=== PATIENT | female | born 1945 | race Caucasian/White ===

== ENCOUNTER → 2016-04-25 | Outpatient (CLI) | payer MEDICARE, MEDICAID ==
[~2016-04-25] VITALS: Ht 172.7 cm; Wt 74.5 kg
[2016-04-25] VITALS (10 sets, daily range): BP systolic 152–159; BP diastolic 53–68
[~2016-04-25] MED LIST: AC325T; AC500T PO; ACET-93 PO; ACET325T49 PO; ACETAMINOPHEN 500 MG TAB (TYLENOL) PO ONE; ACHD5005 PO; ALBU8.5H2 IH; ALBU8.5H2 INH; ALPR0.25 PO; ALPR0.254 PO; ASP325TEC PO; ASP81TEC PO; ASPI-586 PO; ASPI-983 PO; ASPI325T32 PO; ASPI325T4 PO; ATOR10TA PO; ATOR10TA66 PO; ATOR40TA70 PO; Aspirin PO; BACL10TA PO; BACL20TA PO; BCL10T PO; BUDE6HFA IH; BUSP5TAB59 PO; CEFU800T34 PO; CETI-214 PO; CETI10TA17 PO; CHOL2000 PO; CLD600T PO; CLOP75TA PO; CLOP75TA28 PO; CLOP75TA69 PO; CLPD75T PO; CTLP20T PO; DIPH25CA79 PO; DIPH25TA31 PO; DIPH25TA82 PO; DIVA250T2 PO; DIVA250T4 PO; DOCU100C37 PO; E400C; ENXP40I.4 SQ; FAMO20TA5 PO; FERR-65 PO; FEXO1TAB49; FLUT16SP22 NSEACH; FURO20TA4 PO; FUROSEMIDE 40 MG/4 ML INJ (LASIX) IV ONE; GBPN600T PO; GLUC1TAB60; HYDR-3812 PO; HYDR-3816 PO; HYDR28CR45 TP; IBP600T1 PO; IPRA3AMP IH; IPRA3AMP INH; IPRA3AMP11 INH; IPRA4AER IH; LATA2.5D5 OU; LORA10TA7 PO; LOSA50TA36 PO; LOVA40TA2 PO; LTN005OP2; MAGN400C PO; MAGN400O7 PO; MENT71OI TP; MULT-878 PO; MULT1TAB63 PO; NEBI5TAB8 PO; NEBIVOLOL HCL PO; NF-ESOM40C PO; NFNEB10T PO; NIA500ERT PO; NS IV 500 ML 500 ML IV SCH; OMEG1CAP51 PO; OMEP20CA12; OMEP20CA12 PO; OMEP40CA36 PO; ONDA4TAB10 PO; OXYC-197 PO; PANT40TA PO; PANT40TA3 PO; PEDI1TAB35 PO; PHEN10TA56 PO; PNT40TEC PO; POLY17PO23 PO; POLY255P PO; POTA10TA10 PO; POTA10TA36 PO; PREG50CA2 PO; RNT150T PO; SENN-20 PO; SENN8.6T10 PO; SERT100T8 PO; Sodium Chloride IV; THM100T; TMXF10T; TRAM50TA2 PO; UBID100C8 PO; UBID30CA13 PO; [UNRECOGNIZED DRUG - CODE] IV; diphenhydrAMINE 25 MG TAB (BENADRYL) PO ONE; mag oxide
--- OUTSIDE RECORDS SUMMARY | 2016-04-25 08:09 | XMS REPORT | Continuity of Care Document ---
Author Author [facility] Organization [facility] Address Unknown Phone Unavailable Care Team Providers Care Product Assembler Name Role Phone KELSIE PEARSON DO PCP Insurance Providers Payer Name Policy Number Subscriber Name Relationship [employer] [id number] Sarika Springer 18 Self / Same As Patient [facility] [id number] Sarika Springer 16 Self / Same As Patient Advance Directives Directive Response Recorded Date/Time Advance Directives Yes 09/09/15 4:48pm Health Care Power of Rn Perinatal No 09/09/15 4:48pm Organ Donor No 09/09/15 4:48pm Resuscitation Status Full Code 09/09/15 4:48pm Problems Active Problems Medical Problem Onset Date Status Generalized weakness Unknown Acute Mild anemia Unknown Acute UTI (urinary tract infection) Unknown Acute Medications Current Home Medications Medication Dose Units Route Directions Days/Qty Instructions Start Date Multivitamins 1 Ea 1 Tab Oral Daily 10/01/06 Calcium/Vitamin D 1 Tab 1 Tab Oral As Directed TAKES CALCIUM +D3 600- 400MG EVERY FRIDAY AND Friday10/01/06 Cholecalciferol 2,000 Unit 8,000 Unit Oral As Directed TAKES 4 ( 2000UNIT) CAPSULES EVERY AND 03/02/12 Sertraline Hcl 100 Mg 100 Mg Oral Twice A Day 05/11/14 Latanoprost 2.5 Ml 1 Drop Each Eye Bedtime 05/11/14 Ipratropium/Albuterol Sulfate 4 Gm 1 Puff Inhalation Twice A Day Lovastatin 40 Mg 1.5 Tab Oral Daily 07/14/14 Nebivolol Hcl 10 Mg 10 Mg Oral Bedtime 07/14/14 Baclofen (Lioresal) 10 Mg 10 Mg Oral Three Times A Day 08/24/14 Furosemide 20 Mg 20 Mg Oral Daily 0 09/09/15 Ferrous Sulfate 325 Mg 325 Mg Oral Daily 0 09/09/15 Cetirizine Hcl 10 Mg 10 Mg Oral Daily 0 09/09/15 Potassium Chloride 10 Meq 10 Meq Oral Daily 0 09/09/15 Divalproex Sodium 250 Mg 250 Mg Oral Bedtime 0 09/09/15 Alprazolam 0.25 Mg 0.25 Mg Oral Twice A Day as needed for Anxiety 0 Esomeprazole Magnesium 40 Mg 40 Mg Oral Twice A Day 09/11/15 Ipratropium/Albuterol Sulfate (Duoneb) 3 Ml 3 Ml Inhalation Respiratory Every Four Hours as needed for Shortness Of Breath 60 09/12/15 Aspirin 325 Mg 650 Mg Oral Twice A Day 60 09/12/15 Hydrocodone/Acetaminophen 1 Each 1 Tab Oral Every 4HRS as needed for Pain 60 09/12/15 Tramadol Hcl 50 Mg 50-100 Mg Oral Every 6 Hours as needed for Pain 60 09/12/15 Past Home Medications Medication Directions Ordered Status Thiamine Hcl 100 Mg Tab, 10/01/06 Discontinued Vitamin E 400 Unit Capsule, 10/01/06 Discontinued Latanoprost 2.5 Ml Drops, 10/01/06 Discontinued Tamoxifen Citrate 10 Mg Tablet, 10/01/06 Discontinued Fexofenadine Hcl/Pseudoephedrine 1 Tab Tab, 10/01/06 Discontinued Citalopram Hydrobromide 20 Mg Tablet, 40 Mg Oral Daily 10/01/06 Discontinued Omeprazole 20 Mg Capsule., 10/01/06 Discontinued Acetaminophen 325 Mg Tablet, 10/01/06 Discontinued Hlwxgsgo-Nbohgja-Lwgj 149-Hyal 1 Each Tablet, 07/19/09 Discontinued [place]-3 Fatty Acids/Fish Oil 1 Each Capsule, 2000 Mg Oral Daily 07/19/09 Discontinued Acetaminophen 500 Mg Tablet, 500 Mg Oral Every 8HRS as needed for Pain Discontinued Ibuprofen 600 Mg Tablet, 600 Mg Oral Three Times A Day 05/02/10 Discontinued Budesonide/Formoterol Fumarate 10.2 Gm Hfa.aer.ad, 1 Puff Inhalation Twice A Day 05/02/10 Discontinued Diphenhydramine Hcl (Benadryl) 25 Mg Tablet, 1 - 2 Each Oral Hs Prn 05/02/10 Discontinued Aspirin 81 Mg Tabec, 81 Mg Oral Daily 05/03/10 Discontinued Clopidogrel Bisulfate 75 Mg Tablet, 75 Mg Oral Daily 05/03/10 Discontinued Niacin 500 Mg Tablet.sa, 500 Mg Oral Daily 05/03/10 Discontinued Niacin 500 Mg Tablet.sa, 1000 Mg Oral Daily 05/03/10 Discontinued Ranitidine Hcl 150 Mg Tablet, 150 Mg Oral Twice A Day 05/03/10 Discontinued Nebivolol Hcl 5 Mg Tablet, 5 Mg Oral Bedtime 03/02/12 Discontinued Gabapentin 600 Mg Tab, 600 Mg Oral Twice A Day 03/02/12 Discontinued Lovastatin (Mevacor) 40 Mg Tablet, 1 Each Oral Daily With Supper 03/02/12 Discontinued Ubidecarenone 30 Mg Capsule, 30 Mg Oral Daily 03/02/12 Discontinued [Mag Oxide] , 03/02/12 Discontinued Loratadine 10 Mg Tablet, 10 Mg Oral Bedtime 05/11/14 Discontinued Magnesium Oxide 400 Mg Capsule, 400 Mg Oral Bedtime 05/11/14 Discontinued Atorvastatin Calcium 40 Mg Tablet, 40 Mg Oral Bedtime 05/11/14 Discontinued Lovastatin (Mevacor) 40 Mg Tablet, 1 Each Oral Daily With Supper 05/11/14 Discontinued [Aspirin] 81 Mg Tabec, 81 Mg Oral Daily 05/12/14 Discontinued Clopidogrel Bisulfate 75 Mg Tab, 75 Mg Oral Daily 05/12/14 Discontinued Tramadol Hcl 50 Mg Tablet, 100 Mg Oral Three Times A Day 05/27/14 Discontinued Albuterol 8.5 Gm Hfa.aer.ad, 1 Puff Inhalation Respiratory Every Four Hours as needed for Shortness Of Breath 05/27/14 Discontinued Albuterol/Ipratropium 3 Ml Nebu, 3 Ml Inhalation Respiratory Every Four Hours 06/02/14 Discontinued Aspirin 325 Mg Tab, 325 Mg Oral Daily@0900 06/02/14 Discontinued Baclofen 10 Mg Tab, 10 Mg Oral Three Times A Day 06/02/14 Discontinued Enalaprilat 2.5 Mg/2 Ml Inj, 2.5 Mg Intraven Every 20 Minutes as needed for Hypertension 06/02/14 Discontinued Enoxaparin Sodium 40 Mg/0.4 Ml Soln, 40 Mg Sub-Q Daily@1400 06/02/14 Discontinued Acetaminophen/Hydrocodone Bitart (Hydrocodone/Apap 5/325MG) 1 Tab Tab, 1 Tab Oral Every 4HRS as needed for Pain Not Relieved W/Tylenol 06/02/14 Discontinued Pantoprazole Sod 40 Mg Tab, 40 Mg Oral Daily@0700 06/02/14 Discontinued [Sodium Chloride] 10 Ml Soln, 10-40 Ml Intraven As Needed as needed for Line Flush 06/02/14 Discontinued [Nebivolol Hcl] 5 Mg Tablet, 10 Mg Oral Bedtime 06/16/14 Discontinued Aspirin 325 Mg Tabec, 325 Mg Oral Daily 07/14/14 Discontinued Baclofen (Lioresal) 20 Mg Tablet, 10 Mg Oral Three Times A Day 07/14/14 Discontinued Albuterol Sulfate 8.5 Gm Aer.w.adap, 1 Puff Inhalation Every 4HRS as needed for Shortness Of Breath 07/14/14 Discontinued Pantoprazole Sod 40 Mg Tab, 40 Mg Oral Twice A Day 07/16/14 Discontinued Hydrocodone Bit/Acetaminophen 1 Tab Tablet, 1 Tab Oral Four Times Daily as needed for Pain 08/24/14 Discontinued Pantoprazole Sodium 40 Mg Tablet.dr, 40 Mg Oral Twice A Day 08/25/14 Discontinued Albuterol Sulfate 8.5 Gm Aer.w.adap, 1 Puff Inhalation Every 4HRS as needed for Shortness Of Breath 08/25/14 Discontinued Ubidecarenone 100 Mg Capsule, 100 Mg Oral Daily 08/25/14 Discontinued Omeprazole 40 Mg Capsule.dr, 40 Mg Oral Twice A Day 08/25/14 Discontinued Cefuroxime Axetil 500 Mg Tablet, 500 Mg Oral Twice A Day 08/25/14 Discontinued Aspirin 81 Mg Tablet.dr, 81 Mg Oral Daily 09/09/15 Discontinued Diphenhydramine Hcl 25 Mg Capsule, 25 Mg Oral Bedtime as needed for Sleep Discontinued Hydrocodone/Acetaminophen 1 Each Tablet, 1 Each Oral Every 6 Hours as needed for Pain 09/09/15 Discontinued Social History Social History Problem Response Recorded Date/Time Alcohol Use Denies Use 09/09/2015 3:49pm Recreational Drug Use No 09/09/2015 3:49pm Recent Foreign Travel No 09/09/2015 3:49pm Recent Infectious Disease Exposure No 09/09/2015 3:49pm Hospitalization with Isolation Denies 09/12/2015 1:46pm Sexually Transmitted Disease No 09/09/2015 3:49pm HIV/AIDS No 09/09/2015 3:49pm Smoking Status Current Everyday Smoker 09/09/2015 8:27pm Do you dip or chew tobacco? No 08/24/2014 6:17pm Query Response Start Date Stop Date Smoking Status Current Everyday Smoker Hospital Discharge Instructions No hospital discharge instructions. Plan of Care Discharge Date 09/12/15 1:00pm Disposition 62 DISC/XFER TO IRF Instructions/Education Provided Open Reduction and Internal Fixation of a Hip Fracture (ED) Prescriptions See Medication Section Additional Instructions/Education transfer to rehab, continue same orders Functional Status Query Response Date Recorded Patient Orientation Person Place Time Situation September 12, 2015 11:44am Patient Orientation Person Place Time Situation September 12, 2015 1:46pm Comprehension Ability Understands Concepts September 12, 2015 8:00am Allergies, Adverse Reactions, Alerts Allergen Type Severity Reaction Status Last Updated Penicillins ([id number]) Allergy Unknown PT HAS RECEIVED ANCEF WITHOUT ISSUE Active 05/30/14 Meperidine Allergy Unknown Active 05/30/14 Immunizations Name Given Type Date of Pneumonia Vaccine 12/15/13 Historical Date of Influenza Vaccine 12/15/13 Historical Tetanus Booster (TDap) Unknown Historical Vital Signs Acute Vital Signs Vital Response Date/Time Temperature (Fahrenheit) 97.8 degrees F (97.6 - 99.5) 09/12/2015 1:42pm Temperature (Calculated Celsius) 36.14015 degrees C (36.4 - 37.5) 09/12/2015 10:00am Temperature Source Tympanic 09/12/2015 1:42pm Pulse Rate (adult) 70 bpm (60 - 90) 09/12/2015 1:42pm Respiratory Rate 20 bpm (12 - 24) 09/12/2015 1:42pm O2 Sat by Pulse Oximetry 95 % (88 - 100) 09/12/2015 1:42pm Blood Pressure 115/60 mm Hg 09/12/2015 1:42pm Blood Pressure Mean 78 mm Hg 09/12/2015 10:00am Pain Numeric Pain Scale 0-No Pain 09/12/2015 1:42pm Pain Intensity 3 09/12/2015 10:22am Height (Feet) 5 feet 09/09/2015 8:23pm Height (Inches) 8.00 inches 09/09/2015 8:23pm Height (Calculated Centimeters) 172.684895 cm 09/09/2015 8:23pm Weight (Pounds) 159 pounds 09/11/2015 6:00am Weight (Ounces) 8.0 oz 09/11/2015 6:00am Weight (Calculated Grams) 23804.984 gm 09/11/2015 6:00am Weight (Calculated Kilograms) 72.879635 kilograms 09/11/2015 6:00am Calculated BMI 22.2 09/09/2015 8:23pm Results Laboratory Results Test Name Result Units Flags Reference Collection Date/Time Result Date/ Time Comments White Blood Count 6.2 10^3/uL 4.3-11.0 09/12/2015 6:10am 09/12/2015 6: 24am Red Blood Count 3.01 10^6/uL L 4.35-5.85 09/12/2015 6:10am 09/12/2015 6: 24am Hemoglobin 9.4 G/DL L 11.5-16.0 09/12/2015 6:10am 09/12/2015 6:24am Hematocrit 29 % L 35-52 09/12/2015 6:10am 09/12/2015 6:24am Mean Corpuscular Volume 95 FL 80-99 09/12/2015 6:10a09/12/2015 6: 24am Mean Corpuscular Hemoglobin 31 PG 25-34 09/12/2015 6:10am 09/12/2015 6: 24am Mean Corpuscular Hemoglobin Concent 33 G/DL 32-36 09/12/2015 6:10am 6:24am Red Cell Distribution Width 13.2 % 10.0-14.5 09/12/2015 6:10a2015 6:24am Platelet Count 141 10^3/uL 130-400 09/12/2015 6:10am 09/12/2015 6:24am Mean Platelet Volume 9.8 FL 7.4-10.4 09/12/2015 6:09/12/2015 6: 24am Neutrophils (%) (Auto) 67 % 42-75 09/12/2015 6:09/12/2015 6:24am Lymphocytes (%) (Auto) 18 % 12-44 09/12/2015 6:09/12/2015 6:24am Monocytes (%) (Auto) 11 % 0-12 09/12/2015 6:09/12/2015 6:24am Eosinophils (%) (Auto) 5 % 0-10 09/12/2015 6:09/12/2015 6:24am Basophils (%) (Auto) 0 % 0-10 09/12/2015 6:09/12/2015 6:24am Neutrophils # (Auto) 4.2 X 10^3 1.8-7.8 09/12/2015 6:09/12/2015 6: 24am Lymphocytes # (Auto) 1.1 X 10^3 1.0-4.0 09/12/2015 6:09/12/2015 6: 24am Monocytes # (Auto) 0.7 X 10^3 0.0-1.0 09/12/2015 6:09/12/2015 6: 24am Eosinophils # (Auto) 0.3 10^3/uL 0.0-0.3 09/12/2015 6:09/12/2015 6 :24am Basophils # (Auto) 0.0 10^3/uL 0.0-0.1 09/12/2015 6:09/12/2015 6: 24am Prothrombin Time 13.8 SEC 12.2-14.7 09/09/2015 7:50pm 09/09/2015 8: 19pm INR Comment 1.1 0.8-1.4 09/09/2015 7:50pm 09/09/2015 8:19pm INTERPRETIVE DATA SUGGESTED THERAPEUTIC RANGE FOR INR'S: VENOUS THROMBOSIS, PULMONARY EMBOLISM, OR PREVENTION OF SYSTEMIC EMBOLISM (EG. IN ATRIAL FIBRILLATION): 2.0 - 3.0 MECHANICAL PROSTHETIC HEART VALVES: 2.5 - 3.5* *NOTE: INR'S UP TO 4.5 MAY BE NECESSARY IN SELECTED GROUPS OF HIGH RISK PATIENTS. [place] [employer] OF [place] PH[employer]ANS CONSENSUS CONFERENCE ON ANTITHROMBOTIC THERAPY (2000). Activated Partial Thromboplast Time 32 SEC 24-35 09/09/2015 7:50pm 8:19pm Urine Color DIONNA * 09/12/2015 10:2009/12/2015 10:35am Urine Clarity SLIGHTLY CLOUDY 09/12/2015 10:09/12/2015 10: 35am Urine pH 6.5 5-9 09/12/2015 10:20am 09/12/2015 10:35am Urine Specific [place] 1.010 * 1.016-1.022 09/12/2015 10:20am 2015 10:35am Urine Protein 2+ * NEGATIVE 09/12/2015 10:2009/12/2015 10:35am Urine Glucose (UA) NEGATIVE NEGATIVE 09/12/2015 10:2009/12/2015 10 :35am Urine RBC (Auto) 1+ * NEGATIVE 09/12/2015 10:20am 09/12/2015 10:35am Urine Ketones NEGATIVE NEGATIVE 09/12/2015 10:09/12/2015 10: 35am Urine Nitrite NEGATIVE NEGATIVE 09/12/2015 10:09/12/2015 10: 35am Urine Bilirubin NEGATIVE NEGATIVE 09/12/2015 10:09/12/2015 10: 35am Urine Urobilinogen 1 MG/DL NORMAL 09/12/2015 10:2009/12/2015 10: 35am Urine Leukocyte Esterase 1+ * NEGATIVE 09/12/2015 10:2009/12/2015 10 :35am Urine RBC NONE /HPF 09/12/2015 10:2009/12/2015 10:35am Urine WBC 0-2 /HPF 09/12/2015 10:2009/12/2015 10:35am Urine Bacteria TRACE /HPF 09/12/2015 10:20am 09/12/2015 10:35am Urine Squamous Epithelial Cells 25-50 /HPF * 09/12/2015 10:202015 10:35am Urine Crystals NONE /LPF 09/12/2015 10:20am 09/12/2015 10:35am Urine Casts NONE /LPF 09/12/2015 10:20am 09/12/2015 10:35am Urine Mucus NEGATIVE /LPF 09/12/2015 10:20am 09/12/2015 10:35am Urine Culture Indicated NO 09/12/2015 10:20am 09/12/2015 10:35am Sodium Level 140 MMOL/L 135-145 09/12/2015 6:10a09/12/2015 6:51am Potassium Level 3.6 MMOL/L 3.6-5.0 09/12/2015 6:10a09/12/2015 6:51am Chloride Level 105 MMOL/L 98-107 09/12/2015 6:10a09/12/2015 6:51am Carbon Dioxide Level 28 MMOL/L 21-32 09/12/2015 6:10a09/12/2015 6: 51am Anion Gap 7 MMOL/L 5-14 09/12/2015 6:10a09/12/2015 6:51am Blood Urea Nitrogen 11 MG/DL 7-18 09/12/2015 6:10a09/12/2015 6:51am Creatinine 0.74 MG/DL 0.60-1.30 09/12/2015 6:10a09/12/2015 6:51am BUN/Creatinine Ratio 15 09/12/2015 6:10a09/12/2015 6:51am Estimat Glomerular Filtration Rate > 60 09/12/2015 6:10a2015 6:51am GFR INTERPRETIVE DATA UNITS FOR ESTIMATED GFR (eGFR): mL/min/1.73 M2 REFERENCE RANGE FOR ESTIMATED GFR (eGFR) eGFR NORMAL eGFR >60 MODERATELY DECREASED eGFR 30-59 SEVERLY DECREASED eGFR 15-29 KIDNEY FAILURE <15 (OR DIALYSIS) Glucose Level 119 MG/DL H 70-105 09/12/2015 6:10a09/12/2015 6:51am Calcium Level 8.9 MG/DL 8.5-10.1 09/12/2015 6:10a09/12/2015 6:51am Total Bilirubin 0.3 MG/DL 0.1-1.0 09/09/2015 7:50pm 09/09/2015 9:49pm Alkaline Phosphatase 75 U/L 40-136 09/09/2015 7:50pm 09/09/2015 9:49pm Aspartate Amino Transf (AST/SGOT) 22 U/L 5-34 09/09/2015 7:50pm 2015 9:49pm Alanine Aminotransferase (ALT/SGPT) 13 U/L 0-55 09/09/2015 7:50pm 09/08 9:49pm Total Protein 6.2 G/DL L 6.4-8.2 09/09/2015 7:50pm 09/09/2015 9:49pm Albumin 3.7 G/DL 3.2-4.5 09/09/2015 7:50pm 09/09/2015 9:49pm Microbiology Results Procedure Source Result Collection Date/Time Result Date/Time MRSA Screen Nasal MRSA not isolated 09/09/2015 6:20pm 09/11/2015 7:49am Procedures Procedure Status Date Provider(s) * Intramedullary rodding using locking nail system of right femur Completed 09/10/15 LEXX ALTAMIRANO MD Tracing only of electrocardiogram Completed 09/09/15 SARAH ALVAREZ DO Encounters Encounter Location Arrival/Admit Date Discharge/Depart Date Attending Provider Discharged Inpatient [facility] 09/09/15 3:10pm 1:00pm KELSIE PEARSON DO
== END ==
LOC: SDC 08:04
PROVIDERS: ATTEND Family Medicine
DX: D64.9 Anemia, unspecified (principal)
CPT/HCPCS: 36430; 86850; 86900; 86901; 86920; 96374; 96375

== ENCOUNTER 2016-05-23 22:07 | Inpatient (IN) | payer MEDICARE, MEDICAID ==
[~2016-05-23] VITALS: Ht 165.1 cm; Wt 73.7 kg
[~2016-05-23 22:07] MED LIST changes: -ACET325T49 PO; -ACETAMINOPHEN 500 MG TAB (TYLENOL) PO ONE; -ATOR10TA66 PO; -BUSP5TAB59 PO; -CLOP75TA28 PO; -DOCU100C37 PO; -FAMO20TA5 PO; -FUROSEMIDE 40 MG/4 ML INJ (LASIX) IV ONE; -IPRA3AMP IH; -MAGN400O7 PO; -NS IV 500 ML 500 ML IV SCH; -ONDA4TAB10 PO; -OXYC-197 PO; -PANT40TA3 PO; -PEDI1TAB35 PO; -SENN8.6T10 PO; -diphenhydrAMINE 25 MG TAB (BENADRYL) PO ONE
--- OUTSIDE RECORDS SUMMARY | 2016-05-23 22:12 | XMS REPORT | Continuity of Care Document ---
Author Author [facility] Organization [facility] Address Unknown Phone Unavailable Care Team Providers Care Air Sealing Technician Name Role Phone KELSIE PEARSON DO PCP Insurance Providers Payer Name Policy Number Subscriber Name Relationship [employer] [id number] Sarika Springer 16 Self / Same As Patient [facility] [id number] Sarika Springer 16 Self / Same As Patient Advance Directives Directive Response Recorded Date/Time Advance Directives Yes 09/09/15 4:48pm Health Care Power of Violin Mechanic No 09/09/15 4:48pm Organ Donor No 09/09/15 [...] Discontinued Acetaminophen 325 Mg Tablet, 10/01/06 Discontinued Ipfvmgje-Mzptqgg-Aeeb 149-Hyal 1 Each Tablet, 07/19/09 Discontinued [place]-3 Fatty Acids/Fish Oil 1 Each Capsule, 2000 [...] Type Severity Reaction Status Last Updated Penicillins ([id number]) Allergy Unknown PT HAS RECEIVED ANCEF WITHOUT ISSUE Active 05/30/14 Meperidine Allergy Unknown Active 05/30/14 Immunizations Name Given Type Date of Pneumonia Vaccine 12/15/13 Historical Date of Influenza Vaccine 12/15/13 Historical Tetanus Booster (TDap) Unknown Historical Vital Signs Acute Vital Signs Vital Response Date/Time Temperature (Fahrenheit) 97.8 degrees F (97.6 - 99.5) 09/12/2015 1:42pm Temperature (Calculated Celsius) 36.57344 degrees C (36.4 - 37.5) 09/12/2015 10:00am [...] 8.00 inches 09/09/2015 8:23pm Height (Calculated Centimeters) 172.774352 cm 09/09/2015 8:23pm Weight (Pounds) 159 pounds 09/11/2015 6:00am Weight (Ounces) 8.0 oz 09/11/2015 6:00am Weight (Calculated Grams) 46792.984 gm 09/11/2015 6:00am Weight (Calculated Kilograms) 72.539532 kilograms 09/11/2015 6:00am Calculated BMI 22.2 09/09/2015 [...] SELECTED GROUPS OF HIGH RISK PATIENTS. [place] [employer] [employer] [place] CONSENSUS CONFERENCE ON ANTITHROMBOTIC THERAPY (2000). Activated Partial Thromboplast Time 32 SEC 24-35 09/09/2015 7:50pm 8:19pm Urine Color DIONNA * 09/12/2015 10:2009/12/2015 10:35am Urine Clarity SLIGHTLY CLOUDY 09/12/2015 10:09/12/2015 10: 35am Urine pH 6.5 5-9 09/12/2015 10:20am 09/12/2015 10:35am Urine Specific [place] 1.010 * 1.016-1.022 09/12/2015 10:20am 2015 10:35am [...] Discharge/Depart Date Attending Provider Discharged Inpatient [facility] 09/09/15 3:10pm 1:00pm KELSIE PEARSON DO
[2016-05-23] MEDS ORDERED: fentaNYL INJECTION 100 MCG/2 ML AMP IVP STA ×2 (22:15→23:05)
--- NOTE | 2016-05-23 22:58 | ED Lower Extremity ---
General Chief Complaint: Trauma-Non Activation Stated Complaint: FALL/L HIP PAIN Nursing Triage Note: PT REPORTS SHE FELL WHILE WALKING AROUND HER HOUSE. PT REPORTS SHE LOST HER BALANCE AND LANDED ON THE FLOOR. PT REPORTS SHE DID HIT HER HEAD BUT DID NOT HAVE LOC. PT DENIES NECK OR BACK PAIN BUT REPORTS L HIP PAIN. Nursing Sepsis Screen: No Definite Risk Source: patient History of Present Illness Time seen by provider: 22:07 Initial Comments PT ARRIVES VIA EMS FROM HOME PT STATES SHE WAS WALKING AND TRYING TO ANSWER THE PHONE AND FELL, LANDING ON HER LEFT HIP PT STATES SHE DID HIT HER HEAD, AND IT WAS HURTING BUT IS NOT HURTING NOW. OCCURRED AT 2030 TONIGHT NO LOSS OF CONSCIOUSNESS NO NECK OR BACK PAIN NO VISION CHANGES NO NAUSEA/VOMITING C/O LEFT HIP PAIN HAS SLIGHT TINGLING TO LEFT FOOT, OTHERWISE NO PARESTHESIAS OR MOTOR DEFICITS NO OTHER INJURIES PT HAS HAD FRACTURE OF RIGHT HIP /ORIF AND THIS FEELS THE SAME. PT CURRENTLY LIVING AT HOME WITH 24 HOUR CAREGIVERS. HAS BEEN IN [facility] IN THE PAST. Location Injury Occurred: HOME [facility] PCP: DR. PEARSON Allergies and Home Medications Allergies Coded Allergies: Penicillins (Verified Allergy, Unknown, PT HAS RECEIVED ANCEF WITHOUT ISSUE, 05/30/14) meperidine (Verified Allergy, Unknown, 05/30/14) Home Medications Acetaminophen 500 Mg Tablet 1,000 MG PO DAILY (Reported) Albuterol/Ipratropium 4 Gm Aero 1 PUFF IH BID PRN PRN SHORTNESS OF BREATH ( Reported) Alprazolam 0.25 Mg Tablet 0.125 MG PO TID PRN PRN ANXIETY (Reported) TAKES 1/2 OF A (0.25 MG) TABLET Aspirin 81 Mg Tablet.dr 81 MG PO DAILY (Reported) Atorvastatin Calcium 10 Mg Tablet #30 10 MG PO HS Prescribed by: SARAH ALVAREZ on 02/03/16 0937 Cetirizine HCl 10 Mg Tablet 10 MG PO DAILY (Reported) Clopidogrel Bisulfate 75 Mg Tablet #30 75 MG PO DAILY Prescribed by: SARAH ALVAREZ on 02/03/16 0931 Diphenhydramine HCl 25 Mg Tablet 50 MG PO HS PRN PRN SLEEP (Reported) TAKES 2 (25 MG) TABLETS / ALSO TAKES NEEDED FOR ALLERGIES Divalproex Sodium 250 Mg Tablet.dr 250 MG PO HS (Reported) Fluticasone Propionate 16 Gm [place].susp 2 SPRAYS NSEACH BID (Reported) Furosemide 20 Mg Tablet 20 MG PO DAILY (Reported) Hydrocodone/Acetaminophen 1 Each Tablet 1 TAB PO TID PRN PRN SEVERE PAIN ( Reported) Hydrocortisone 28 Gm Cream..g. TP DAILY PRN PRN PRN RASH (Reported) Latanoprost 2.5 Ml Drops 1 DROP OU HS (Reported) Losartan Potassium 50 Mg Tablet 50 MG PO DAILY (Reported) Menthol/Lanolin/Calamine/Znox 71 Gm Oint TP DAILY PRN PRN PRN RASH (Reported) Multivitamins-Min/FA/Ginkgo 1 Each Tablet 1 TAB PO DAILY (Reported) Nebivolol HCl 10 Mg Tab 10 MG PO DAILY (Reported) Omeprazole 20 Mg Capsule.dr 40 MG PO DAILY (Reported) TAKES 2 (20 MG) CAPSULES / HAS NOT P/U FROM [facility] YET Phenylephrine HCl 10 Mg Tablet 10 MG PO BID PRN PRN CONGESTION (Reported) Polyethylene Glycol 3350 255 Gm Powder 17 GM PO DAILY (Reported) Potassium Chloride 10 Meq Tablet.er 10 MEQ PO DAILY (Reported) Sertraline HCl 100 Mg Tablet 200 MG PO DAILY (Reported) TAKES 2 (100 MG) TABLETS Constitutional: no symptoms reported EENTM: no symptoms reported Respiratory: no symptoms reported Cardiovascular: no symptoms reported (PT HAS COPD--NO SHORTNESS OF BREATH AT THIS TIME) Gastrointestinal: no symptoms reported Genitourinary: no symptoms reported Musculoskeletal: see HPI Skin: no symptoms reported Psychiatric/Neurological: See HPI Past Ytpzyxd-Nvogxz-Hzqpvi Hx Patient Social History Alcohol Use: Denies Use Recreational Drug Use: No Smoking Status: Current Everyday Smoker (1 03/18 PPD) Type Used: Cigarettes Recent Foreign Travel: No Contact w/Someone Who Travel: No Recent Infectious Disease Expo: No Recent Hopitalizations: No Immunizations Up To Date Tetanus Booster (TDap): Unknown Date of Pneumonia Vaccine: Dec 15, 2013 Date of Influenza Vaccine: Dec 16, 2015 Seasonal Allergies Seasonal Allergies: No Surgeries HX Surgeries: Yes (CAROTID, BREAST BIOPSIES,HERNIA REPAIR x2, HEMMORHOID SURGERIES; RIGHT HIP FX / ORIF) Surgeries: Abdominal, Breast, Gallbladder, Hysterectomy, Orthopedic, Rectal, Vascular Surgery Respiratory Hx Respiratory Disorders: Yes Respiratory Disorders: COPD Cardiovascular Hx Cardiac Disorders: Yes (CAROTID DISEASE) Cardiac Disorders: High Cholesterol, Hypertension, Peripheral Vascular Neurological Hx Neurological Disorders: Yes (LEFT SIDE WEAKNESS--LAST TIA 01/2016) Neurological Disorders: Seizure Disorder, Stroke, TIA 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 System Hx 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 Disorders: No Sexually Transmitted Disease: No HIV/AIDS: No Female 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 Disorders: 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, 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 Genitourinary Hx Genitourinary Disorders: Yes (INCONTINENCE) Gastrointestinal Hx Gastrointestinal Disorders: Yes Gastrointestinal Disorders: Gastroesophageal Reflux, Chronic Constipation, Hemorrhoids, Hiatal Hernia Musculoskeletal Hx Musculoskeletal Disorders: Yes (CHRONIC GENERALIZED PAIN , FX RIGHT HIP 09/08) Musculoskeletal Disorders: Arthritis, Fibromyalgia, Chronic Back Pain Endocrine Hx Endocrine Disorders: No HEENT HX ENT Disorders: Yes HEENT Disorders: Glaucoma Cancer Hx Cancer: Yes Cancer: Breast Psychosocial Hx Psychiatric Problems: Yes ("SEVERE ANXIETY" PER PT) Behavioral Health Disorders: Anxiety Integumentary HX Skin/Integumentary Disorder: No Blood Transfusions Hx Blood Disorders: No Adverse Reaction to a Blood Tr: No Family Medical History Family Medial History: Alcoholism 19 MOTHER, Onset:20's - 25 Aphasia 19 MOTHER, Onset:40's - 50 Asthma 19 FATHER, Onset:Unknown Congenital disease Son, Onset:Pre- Diabetes mellitus G8 SISTER, Onset:60 years & older FH: ovarian cancer G8 SISTER, Onset:Unknown FHx: stomach cancer 19 MOTHER, Onset:60 years & older Glaucoma Grandaughter, Onset:Unknown Hypertension 19 MOTHER, Onset:Unknown Infertility G8 SISTER, Onset:Pre- Tuberculosis G8 SISTER, Onset:30's - 40 No Family History of: AIDS Abdominal aortic aneurysm Tracy's disease Alzheimer's disease Cancer of mouth Cardiovascular disease Cataracts Colon cancer Completed stroke Congenital heart disease Coronary thrombosis Cystic fibrosis Deafness or hearing loss Dementia Drug abuse Dysphasia Fibrocystic disease of breast Gastroenteritis Gout Headache disorder Hypercholesterolemia Kidney disease Myocardial infarction Neoplasm Not obtainable due to adoption Osteoporosis Parkinson's disease Prostate cancer Psychosocial problem Respiratory disorder Seizure disorder Severe allergy Thyroid disease Visual disorder Physical Exam Vital Signs Vital Sign - Last 12Hours 05/23/16 22:22 Temp 97.9 Pulse 73 Resp 18 B/P 182/71 Pulse Ox 96 O2 Delivery Room Air Capillary Refill : Less Than 3 Seconds General Appearance: WD/WN no apparent distress other (REEKS OF CIGARETTES) HEENT: PERRL/EOMI other (EDENTULOUS, DRY ORAL MUCOSA. NO EXTERNAL EVIDENCE OF TRAUMA TO HEAD AND NO TENDERNESS TO HEAD) Neck: non-tender full range of motion supple normal inspection Cardiovascular: regular rate, rhythm systolic murmur (3/6 MURMUR) Respiratory: no respiratory distress no accessory muscle use wheezing ( DIFFUSE BILATERAL EXPIRATORY WHEEZING. ) expiration Gastrointestinal: non tender soft Back: no CVA tenderness no vertebral tenderness Hips: right hip non-tender, right hip normal inspection, left hip bone tenderness, left hip soft tissue tenderness, left hip other (LEFT HIP TENDERNESS. LEFT LEG SHORTENING AND EXTERNAL ROTATION. DISTAL MOTOR/SENSORY / VASCULAR INTACT. PULSES +2/4 BILATERALLY. 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 no motor/sensory deficits alert normal mood/affect oriented x 3 Skin: normal color warm/dry Progress/Results/Core Measures Results/Orders My Orders Orders-YOLANDA DOYLE DO Ct Head Wo (05/23/16 22:15) Chest 1 View, Ap/Pa Only (05/23/16 22:15) Pelvis (05/23/16 22:15) Hip, Left, 2 Views (05/23/16 22:15) Saline Lock/Iv-Start (05/23/16 22:15) Fentanyl Injection (Sublimaze Injection (05/23/16 22:15) Vital Signs/I&O Vital Sign - Last 12Hours 05/23/16 05/23/16 22:22 22:22 Temp 97.9 97.9 Pulse 73 73 Resp 18 18 B/P 182/71 182/71 Pulse Ox 96 96 O2 Delivery Room Air Blood Pressure Mean: 108 Progress Note : Progress Note NO DETERIORATION IN PT'S CONDITION DURING ER STAY Diagnostic Imaging Comments XRAYS PELVIS AND LEFT HIP--INTERTROCHANTERIC FRACTURE. PENDING RADIOLOGIST REVIEW CT HEAD--NO ACUTE PROCESS, CHRONIC CHANGES--PER [facility] VIA FAX @ [phone] Reviewed: Reviewed by Me Departure Communication Progress Notes 2249--SPOKE WITH DR. VIDAL, ORTHOPEDIC SURGEON ANIMAL KEEPER. HE ADVISES TO ADMIT TO PCP AND HE WILL SEE PT IN CONSULT 2251--SPOKE WITH DR. PEARSON. ACCEPTS PT FOR ADMIT. Impression Impression: Primary Impression: Closed left hip fracture Additional Impression: COPD (chronic obstructive pulmonary disease) Disposition: 09 ADMITTED INPATIENT Condition: Stable Decision to Admit Reason: Admit from ER (Trauma) Decision to Admit/Date: May 23, 2016 Time/Decision to Admit Time: 22:50 Departure-Patient Inst. Referrals: KELSIE PEARSON DO (PCP/Family) Primary Care Physician YOLANDA DOYLE DO May 23, 2016 22:58
[2016-05-23] MEDS ORDERED: D5 1/2 NS 1000 ML IV SOLUTION 1,000 ML IV ONE (23:15)
[2016-05-23] MEDS ORDERED: RT-ALBUTEROL/IPRATROPIUM 3 ML (DUONEB) VIAL INH ONE (23:15)
[2016-05-24] MEDS ORDERED: morphine INJ 10 MG/ML 1ML (SYR OR VIAL) IVP STA (00:07)
[2016-05-24 01:00] VITALS: BP 128/65
[2016-05-24] MEDS ORDERED: fentaNYL INJECTION 100 MCG/2 ML AMP ONE ×2 (01:06→10:28)
[2016-05-24] MEDS ORDERED: RT-ALBUTEROL/IPRATROPIUM 3 ML (DUONEB) VIAL INH PRN (01:30)
[2016-05-24] MEDS: D5 1/2 NS 1000 ML IV SOLUTION 1,000 ML IV SCH ×4 (01:45→21:45)
[2016-05-24] MEDS: fentaNYL INJECTION 100 MCG/2 ML AMP IV PRN ×2 (03:10→04:58)
[2016-05-24 04:00] VITALS: BP 129/67
[2016-05-24 07:09] LABS: BASOPHILS % (AUTO) 0 % (0-10); EOSINOPHILS # (AUTO) 0.1 10^3/uL (0.0-0.3); EOSINOPHILS % (AUTO) 1 % (0-10); LYMPHOCYTES % (AUTO) 20 % (12-44); MEAN CORPUSCULAR HEMOGLOBIN 25 PG (25-34); MEAN CORPUSCULAR HGB CONC 31 G/DL (32-36); MEAN CORPUSCULAR VOLUME 81 FL (80-99); MEAN PLATELET VOLUME 9.5 FL (7.4-10.4); MONOCYTES # (AUTO) 0.5 X 10^3 (0.0-1.0); MONOCYTES % (AUTO) 10 % (0-12); NEUTROPHILS # (AUTO) 3.5 X 10^3 (1.8-7.8); NEUTROPHILS % (AUTO) 69 % (42-75); PLATELET COUNT 254 10^3/uL (130-400); RED BLOOD COUNT 3.74 10^6/uL (4.35-5.85); RED CELL DISTRIBUTION WIDTH 17.5 % (10.0-14.5); WHITE BLOOD COUNT 5.1 10^3/uL (4.3-11.0)
[2016-05-24 07:18] LABS: PROTHROMBIN TIME PATIENT 12.7 SEC (12.2-14.7)
[2016-05-24 07:28] LABS: ALANINE AMINOTRANSFERASE 167 U/L (0-55); ALBUMIN 3.5 G/DL (3.2-4.5); ANION GAP 10 MMOL/L (5-14); ASPARTATE AMINO TRANSFERASE 393 U/L (5-34); BILIRUBIN,TOTAL 0.3 MG/DL (0.1-1.0); BLOOD UREA NITROGEN 14 MG/DL (7-18); BUN/CREATININE RATIO 16; CARBON DIOXIDE 23 MMOL/L (21-32); CHLORIDE 102 MMOL/L (98-107); CREATININE SERUM 0.87 MG/DL (0.60-1.30); GFR ESTIMATED > 60; GLUCOSE 114 MG/DL (70-105); POTASSIUM 4.7 MMOL/L (3.6-5.0); SODIUM 135 MMOL/L (135-145); TOTAL PROTEIN 6.3 G/DL (6.4-8.2)
--- NOTE | 2016-05-24 07:48 | Diagnostic Imaging Report ---
PROCEDURE: CT head without contrast. TECHNIQUE: Multiple contiguous axial images were obtained through the brain without the use of intravenous contrast. INDICATION: Fall with pain. There is no intracranial hemorrhage, hydrocephalus, edema, mass, or mass effect. Chronic white matter disease and old ganglial lacunar infarcts are unchanged from an exam of 01/31/2016. No new site of abnormal attenuation. No focal or generalized edema. No calvarial fracture deformity. There is no evidence for hemo-sinus. IMPRESSION: Chronic senescent changes and stable old multifocal ischemia, unchanged from prior. No hemorrhage, fracture deformity, or acute/posttraumatic sequelae identified. Dictated by: Dictated on workstation # [id number]
--- NOTE | 2016-05-24 07:55 | Diagnostic Imaging Report ---
INDICATION: Left hip pain. AP view pelvis shows an intertrochanteric fracture of the left hip with minimal displacement. There are postop changes from internal fixation of the right hip. IMPRESSION: Intertrochanteric fracture of the left hip. ER physician is aware of findings. Dictated by: Dictated on workstation # [id number]
--- NOTE | 2016-05-24 07:55 | Diagnostic Imaging Report ---
INDICATION: Hip fracture. Portable chest 10:51 PM. Heart size and pulmonary vascularity are normal. Lungs are clear. There are no effusions or pneumothoraces. IMPRESSION: Negative chest. Dictated by: Dictated on workstation # [id number]
--- NOTE | 2016-05-24 07:56 | Diagnostic Imaging Report ---
INDICATION: Left hip pain Two views of the left hip show a nondisplaced intertrochanteric fracture of the left hip. IMPRESSION: Nondisplaced intertrochanteric fracture of the left hip. Attending physician is aware of findings. Dictated by: Dictated on workstation # [id number]
[2016-05-24 08:00] VITALS: BP 145/67
[2016-05-24] MEDS ORDERED: LACTATED RINGERS 1,000 ML IV PRN (09:54)
[2016-05-24] MEDS ORDERED: CLINDAMYCIN 600 MG/50 ML IVPB 50 ML IV NR (10:00)
[2016-05-24] MEDS ORDERED: TRANEXAMIC ACID INJECTION 1,000 MG in NS (IVPB) 50 ML IV NR (10:00)
--- NOTE | 2016-05-24 10:17 | History & Physicial ---
History of Present Illness History of Present Illness Reason for visit/HPI This is a 71 year old female who stated she was getting up to answer the phone at her home when she lost her balance and fell. She did hit her head but had no loss of consciousness. She landed on her left hip. In the emergency room, her main complaint was left hip pain. Her left hip x-ray did show a left intertrochanteric hip fracture. Her CT scan of her head was negative. She will be admitted for orthopedic consultation and surgery. Date of Admission May 23, 2016 at 22:50 I consulted on this patient on 05/24/16 10:10 Attending Physician Betsy Coronado DO Admitting Physician Betsy Coronado DO Consult Allergies and Home Medications Allergies Coded Allergies: Penicillins (Verified Allergy, Unknown, PT HAS RECEIVED ANCEF WITHOUT ISSUE, 05/30/14) meperidine (Verified Allergy, Unknown, 05/30/14) Home Medications Acetaminophen 500 Mg Tablet 1,000 MG PO DAILY (Reported) Albuterol/Ipratropium 4 Gm Aero 1 PUFF IH BID PRN PRN SHORTNESS OF BREATH ( Reported) Alprazolam 0.25 Mg Tablet 0.125 MG PO TID PRN PRN ANXIETY (Reported) TAKES 1/2 OF A (0.25 MG) TABLET Aspirin 81 Mg Tablet.dr 81 MG PO DAILY (Reported) Atorvastatin Calcium 10 Mg Tablet #30 10 MG PO HS Prescribed by: SARAH ALVAREZ on 02/03/16 0937 Cetirizine HCl 10 Mg Tablet 10 MG PO DAILY (Reported) Clopidogrel Bisulfate 75 Mg Tablet #30 75 MG PO DAILY Prescribed by: SARAH ALVAREZ on 02/03/16 0931 Diphenhydramine HCl 25 Mg Tablet 50 MG PO HS PRN PRN SLEEP (Reported) TAKES 2 (25 MG) TABLETS / ALSO TAKES NEEDED FOR ALLERGIES Divalproex Sodium 250 Mg Tablet.dr 250 MG PO HS (Reported) Fluticasone Propionate 16 Gm [place].susp 2 SPRAYS NSEACH BID (Reported) Furosemide 20 Mg Tablet 20 MG PO DAILY (Reported) Hydrocodone/Acetaminophen 1 Each Tablet 1 TAB PO TID PRN PRN SEVERE PAIN ( Reported) Hydrocortisone 28 Gm Cream..g. TP DAILY PRN PRN PRN RASH (Reported) Latanoprost 2.5 Ml Drops 1 DROP OU HS (Reported) Losartan Potassium 50 Mg Tablet 50 MG PO DAILY (Reported) Menthol/Lanolin/Calamine/Znox 71 Gm Oint TP DAILY PRN PRN PRN RASH (Reported) Multivitamins-Min/FA/Ginkgo 1 Each Tablet 1 TAB PO DAILY (Reported) Nebivolol HCl 10 Mg Tab 10 MG PO DAILY (Reported) Omeprazole 20 Mg Capsule.dr 40 MG PO DAILY (Reported) TAKES 2 (20 MG) CAPSULES / HAS NOT P/U FROM [facility] YET Phenylephrine HCl 10 Mg Tablet 10 MG PO BID PRN PRN CONGESTION (Reported) Polyethylene Glycol 3350 255 Gm Powder 17 GM PO DAILY (Reported) Potassium Chloride 10 Meq Tablet.er 10 MEQ PO DAILY (Reported) Sertraline HCl 100 Mg Tablet 200 MG PO DAILY (Reported) TAKES 2 (100 MG) TABLETS Past Ylcsafh-Eojlre-Faaclf Hx Patient Social History Alcohol Use: Denies Use Recreational Drug Use: No Smoking Status: Current Everyday Smoker (1 03/18 PPD) Type Used: Cigarettes Physical Abuse Screen: No Sexual Abuse: No Recent Foreign Travel: No Contact w/other who traveled: No Recent Hopitalizations: No Recent Infectious Disease Expo: No Immunizations Up To Date Tetanus Booster (TDap): Unknown Date of Pneumonia Vaccine: Dec 15, 2013 Date of Influenza Vaccine: Dec 16, 2015 Seasonal Allergies Seasonal Allergies: No Surgeries HX Surgeries: Yes (CAROTID, BREAST BIOPSIES,HERNIA REPAIR x2, HEMMORHOID SURGERIES; RIGHT HIP FX / ORIF) Surgeries: Abdominal, Breast, Gallbladder, Hysterectomy, Orthopedic, Rectal, Vascular Surgery Respiratory Hx Respiratory Disorders: Yes Respiratory Disorders: COPD, Sleep Apnea Cardiovascular Hx Cardiovascular Disorders: Yes (CAROTID DISEASE) Cardiac Disorders: High Cholesterol, Hypertension, Peripheral Vascular Neurological Hx Neurological Disorders: Yes (LEFT SIDE WEAKNESS--LAST TIA 01/2016) Neurological Disorders: Seizure Disorder, Stroke, TIA 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 System Hx 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 Disorders: No Sexually Transmitted Disease: No HIV/AIDS: No Female 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 Disorders: Denies Genitourinary Hx Genitourinary Disorders: Yes (INCONTINENCE) Gastrointestinal Hx Gastrointestinal Disorders: Yes Gastrointestinal Disorders: Gastroesophageal Reflux, Chronic Constipation, Hemorrhoids, Hiatal Hernia Musculoskeletal Hx Musculoskeletal Disorders: Yes (CHRONIC GENERALIZED PAIN , FX RIGHT HIP 09/08) Musculoskeletal Disorders: Arthritis, Fibromyalgia, Chronic Back Pain Endocrine Hx Endocrine Disorders: No HEENT HX ENT Disorders: Yes HEENT Disorders: Glaucoma Hearing Impairment: Denies Cancer Hx Cancer: Yes Cancer: Breast Psychosocial Hx Psychiatric Problems: Yes ("SEVERE ANXIETY" PER PT) Behavioral Health Disorders: Anxiety Integumentary HX Skin/Integumentary Disorder: No Blood Transfusions Hx Blood Disorders: No Adverse Reaction to a Blood Tr: No Family Medical History Family Hx: Alcoholism 19 MOTHER, Onset:20's - 25 Aphasia 19 MOTHER, Onset:40's - 50 Asthma 19 FATHER, Onset:Unknown Congenital disease Son, Onset:Pre- Diabetes mellitus G8 SISTER, Onset:60 years & older FH: ovarian cancer G8 SISTER, Onset:Unknown FHx: stomach cancer 19 MOTHER, Onset:60 years & older Glaucoma Grandaughter, Onset:Unknown Hypertension 19 MOTHER, Onset:Unknown Infertility G8 SISTER, Onset:Pre- Tuberculosis G8 SISTER, Onset:30's - 40 No Family History of: AIDS Abdominal aortic aneurysm Trilla's disease Alzheimer's disease Cancer of mouth Cardiovascular disease Cataracts Colon cancer Completed stroke Congenital heart disease Coronary thrombosis Cystic fibrosis Deafness or hearing loss Dementia Drug abuse Dysphasia Fibrocystic disease of breast Gastroenteritis Gout Headache disorder Hypercholesterolemia Kidney disease Myocardial infarction Neoplasm Not obtainable due to adoption Osteoporosis Parkinson's disease Prostate cancer Psychosocial problem Respiratory disorder Seizure disorder Severe allergy Thyroid disease Visual disorder Constitutional: weakness EENTM: No blurred vision, No dental problems, No double vision, No ear discharge, No ear pain, No epistaxis, No eye pain, No hearing loss, No hoarseness, No mouth pain, No mouth swelling, No no symptoms reported, No nose congestion, No nose pain, No other, No see HPI, No tearing, No throat pain, No throat swelling, No vision loss Respiratory: cough (chronic from tobacco abuse) Cardiovascular: No no symptoms reported, No see HPI, No chest pain, No edema, No Hx of Intervention, No palpitations, No syncope, No vascular heart diseas, No other Gastrointestinal: No RUQ, No LUQ, No RLQ, No LLQ, No no symptoms reported, No see HPI, No abdominal pain, No constipation, No diarrhea, No dysphagia, No hematemesis, No heartburn, No jaundice, No loss of appetite, No melena, No nausea, No vomiting, No other Musculoskeletal: joint pain (left hip) Skin: No no symptoms reported, No see HPI, No change in color, No change in hair/nails, No dryness, No hx of skin cancer, No lesions, No lumps, No pruritus , No rash, No other Psychiatric/Neurological: Pre-Existing Deficit (left sided from previous stroke) Weakness Physical Exam Vital Signs Vital Sign - Last 12Hours 05/23/16 05/24/16 22:22 00:40 Temp 97.9 Pulse 73 Resp 18 B/P 182/71 Pulse Ox 96 O2 Delivery Room Air O2 Flow Rate 2.00 Capillary Refill : Less Than 3 SecondsLess Than 3 Seconds General Appearance: Mild Distress (due to pain) HEENT: Normal ENT Inspection Neck: Supple Respiratory: Lungs Clear Decreased Breath Sounds Cardiovascular: Regular Rate, Rhythm Systolic Murmur Gastrointestinal: Normal Bowel Sounds Non Tender Soft Rectal: Deferred Back: No CVA Tenderness Extremity: Non Tender No Calf Tenderness No Pedal Edema Other (left hip tenderness) Neurologic/Psychiatric: Alert Oriented x3 Skin: Normal Color Warm/Dry Comments Laboratory Tests 05/24/16 06:21: Activated Partial Thromboplast Time 29, Alanine Aminotransferase (ALT/SGPT) 167H , Albumin 3.5, Alkaline Phosphatase 117, Anion Gap 10, Aspartate Amino Transf ( AST/SGOT) 393H, BUN/Creatinine Ratio 16, Basophils # (Auto) 0.0, Basophils (%) ( Auto) 0, Blood Urea Nitrogen 14, Calcium Level 9.0, Carbon Dioxide Level 23, Chloride Level 102, Creatinine 0.87, Eosinophils # (Auto) 0.1, Eosinophils (%) ( Auto) 1, Estimat Glomerular Filtration Rate > 60, Glucose Level 114H, Hematocrit 30L, Hemoglobin 9.4L, INR Comment 1.0, Lymphocytes # (Auto) 1.0, Lymphocytes (%) (Auto) 20, Mean Corpuscular Hemoglobin 25, Mean Corpuscular Hemoglobin Concent 31L, Mean Corpuscular Volume 81, Mean Platelet Volume 9.5, Monocytes # (Auto) 0.5, Monocytes (%) (Auto) 10, Neutrophils # (Auto) 3.5, Neutrophils (%) (Auto) 69, Platelet Count 254, Potassium Level 4.7, Prothrombin Time 12.7, Red Blood Count 3.74L, Red Cell Distribution Width 17.5H, Sodium Level 135, Total Bilirubin 0.3, Total Protein 6.3L, White Blood Count 5.1 Assessment/Plan Assessment and Plan 1. Left intertrochanteric hip fracture--to surgery today for ORIF 2. COPD with ongoing tobacco abuse--oxygen, SVNS, resume home inhalers 3. Hypertension--resume home meds 4. GERD--resume protonix 5. History of CVA with left sided hemiparesis--resume aspirin after surgery Clinical Quality Measures DVT/VTE Risk/Contraindication: Risk Factor Score Per Nursin RFS Level Per Nursing on Admit: 4+=Very High BETSY CORONADO DO May 24, 2016 10:17
[2016-05-24] MEDS ORDERED: MIDAZOLAM 2 MG/2 ML (VERSED) VIAL ONE (10:30)
[2016-05-24] MEDS ORDERED: CATHETER FLUSH 10 ML SYR IV PRN (10:45)
[2016-05-24] MEDS ORDERED: BUP/EPI 0.25% 1:200,000 (MARCAINE) 30 ML VIAL ONE (11:07)
--- NOTE | 2016-05-24 11:14 | CONSULTATION REPORT ---
DATE OF CONSULTATION: INPATIENT CONSULTATION: Left hip intertrochanteric fracture. The patient fell and was brought to the emergency department last night. I was called to offer evaluation and treatment. PERTINENT PAST MEDICA HISTORY AND REVIEW OF SYSTEMS: The patient is on Plavix and aspirin. She has had a stroke on the left side and she is weak on that side because of that. She has also had a right hip intertrochanteric fracture in the past. ORTHOPEDIC EXAMINATION: Orthopedic examination shows the patient to be alert and oriented and cooperative. She is not in distress while just lying quietly. The left lower extremity is shortened and internally rotated. The skin is warm and pink and looks well with significant edema in bilateral lower extremities. X-ray: I looked at the x-ray and read the report. It shows a minimally displaced intertrochanteric fracture which is proximal with good lateral cortex at the level of the lessor troch. IMPRESSION: Left intertrochanteric fracture. This would be quite amenable to a long nail. PLAN: Surgery on left hip to line up bone and fix with hardware (open reduction internal fixation). A Synthes TSN nail will be used. Long. We shouldn't have lock it distally with the good lateral cortex proximally. CONSENT: I discussed the diagnosis, procedure, risk, benefits, alternatives likely for success, as well as rehab. Major risk is shortening or rotation of the left lower extremity. The possibility of failure of the procedure. Possibility the need of more surgery. We talked about the possibility of blood clots and heart problems, lung problems. She voiced understanding and consent. I did try to speak with her [id number], Roselia at [phone] and went to voice mail and left a HIPPA compliant message for her to call me. Job ID: [id number] Dictated Date: 05/24/2016 10:18:01 Soil Field Technician Date: 05/24/2016 10:57:25/jacob GUY
[2016-05-24] MEDS ORDERED: TRANEXAMIC ACID 100 MG/ML 10 ML INJECTION IV ONE (11:17)
[2016-05-24] MEDS ORDERED: proPOfol 200 MG/20 ML (DIPRIVAN) VIAL IV ONE (11:17)
[2016-05-24] MEDS ORDERED: SEVOFLURANE (ULTANE) 15 ML INHAL SOLN ONE ×2 (11:17)
[2016-05-24] MEDS ORDERED: LACTATED RINGERS 1,000 ML IV ONE (11:17)
[2016-05-24] MEDS ORDERED: LIDOCAINE PF 2% 10 ML (XYLOCAINE) AMP ONE (11:17)
[2016-05-24] MEDS ORDERED: ONDANSETRON 4 MG/2 ML (SDV) Z0FRAN ONE (11:17)
--- NOTE | 2016-05-24 12:29 | Progress Note-Post Operative ---
Post-Operative Progess Note Pre-Operative Diagnosis left hip intertrochanteric Fx Post-Operative Diagnosis Same Post-Op Procedure Note Date of Procedure: May 24, 2016 Name of Procedure: Surgery on left hip to delores bone and fix with hardware (ORIF with Synthese TFN) Procedure Note/Findings near anatomic alignment, no distal screw needed - lateral cortex intact at helical screw entry Full note dictated Anesthesia Type GETA Estimated blood loss (mL): 200ml Packing: No Specimen(s) collected None GILL VIDAL MD May 24, 2016 12:28 pm
[2016-05-24 12:50] VITALS: BP 132/68
[2016-05-24] MEDS: busPIRone 5 MG (BUSPAR) TAB PO SCH ×2 (13:00→21:47)
[2016-05-24] MEDS ORDERED: morphine INJ 4 MG/ML 1 ML (VIAL/SYRINGE) IV PRN (13:30)
[2016-05-24] MEDS ORDERED: RT-ALBUTEROL/IPRATROPIUM 3 ML (DUONEB) VIAL INH SCH (14:00)
[2016-05-24] MEDS ORDERED: TRANEXAMIC ACID INJECTION 1,000 MG in NS (IVPB) 50 ML IV ONE (14:45)
[2016-05-24] MEDS ORDERED: CLOP75TA28 PO (15:02)
[2016-05-24] MEDS ORDERED: ATOR10TA66 PO (15:02)
[2016-05-24] MEDS: oxyCODONE/APAP 5/325MG (PERCOCET 5) TABLET PO PRN (15:04)
[2016-05-24] MEDS: ONDANSETRON 4 MG/2 ML (SDV) Z0FRAN IVP SCH ×2 (15:04→22:31)
--- NOTE | 2016-05-24 15:15 | Physical Therapy Progress Note ---
Therapy Progress Note Patient is currently unsafe to attempt PT due to sedation and uncontrolled pain. PT to evaluate in JOHN Miles PT May 24, 2016 15:15
[2016-05-24 15:30] VITALS: BP 128/73
[2016-05-24] MEDS ORDERED: CLINDAMYCIN 600 MG/50 ML IVPB 50 ML IV SCH (17:00)
--- NOTE | 2016-05-24 17:44 | Diagnostic Imaging Report ---
INDICATION: Undergoing left hip surgery. TECHNIQUE: Four intraoperative views of the left hip. CORRELATION STUDY: None. FINDINGS: Intraoperative imaging demonstrates a dynamic screw and intramedullary kushal transfixing the proximal left femur. There is very slight offset about the lesser trochanteric portion of the intertrochanteric femur fracture. FLUOROSCOPY TIME: 2 minutes 42 seconds. IMPRESSION: Internal fixation was performed of the proximal left femur fracture. Dictated by: Dictated on workstation # [id number]
[2016-05-24] MEDS: CLINDAMYCIN 600 MG/50 ML IVPB 50 ML IV SCH (18:11)
[2016-05-24 19:20] VITALS: BP 115/68
--- NOTE | 2016-05-24 20:05 | OPERATIVE REPORT ---
PROCEDURE PHYSICIAN: GILL CHADWICK DATE OF PROCEDURE: 05/24/2016 PREOPERATIVE DIAGNOSIS: Left hip intertrochanteric fracture. POSTOPERATIVE DIAGNOSIS: Left hip intertrochanteric fracture. PROCEDURE: Left hip intertrochanteric fracture open reduction and internal fixation with a Synthes TFN long nail, no locking screw distal. SURGEON: Dr. Chadwick ANESTHESIA: General. COMPLICATIONS: None. BLOOD LOSS: 200 PERIOPERATIVE MEDICATIONS: 1. 600 mg of clindamycin IV. 2. 1 gram of tranexamic acid. 3. 60 mL of 0.25% Marcaine with epinephrine given in the wound edges at the end. FINDINGS: 1. Fracture was easily reducible. 2. Good placement of the hardware at the end. 3. 90 degree sweep through x-ray showed the pin to be located nicely in the head. NARRATIVE SUMMARY: The patient was taken to operating room number 4 after the standard nursing and anesthesia preoperative identification, evaluation and counseling. The left lower extremity was prepared in the usual orthopedic fashion with a vertical drape after measuring the length of the needed nail using x-ray prior to draping and prepping. A timeout was completed and a longitudinal incision was made above the greater troch. Soft tissue dissection was accomplished down to the tip of the greater trochanter. This was followed by a guidewire and a large reamer. The nail then followed placed by hand without any distal reaming. The guidewire was then placed up into the head checking the position of both AP and lateral planes. Length was measured and the 100 mm Helical screw was then measured. The lateral cortex was reamed and the neck was not reamed. The Helical screw was then placed. AP and lateral x-rays were checked again, again sweeping looked at the tip position, it looked to be good. The screw was engaged in the position where it can slip and then the screw was compressed, that is the fracture was compressed by pulling the screw into a compression position. The wounds were irrigated. The wounds were closed in 2 layers the todd being the superficial layer. Final x-rays were taken during this time. The patient was then awakened and returned to the recovery room in stable position. Job ID: [id number] Dictated Date: 05/24/2016 11:49:04 Ripsaw Matcher Date: 05/24/2016 19:46:21 / nicolas
[2016-05-24] MEDS: DIVALPROEX 250 MG DELAYED RELEASE (DEPAKOTE) TAB PO SCH (21:47)
[2016-05-24] MEDS: SERTRALINE 100 MG (ZOLOFT) TAB PO SCH (21:47)
[2016-05-24] MEDS: POLYETHYLENE GLYCOL 17 GM (MIRALAX) PACK PO SCH (21:48)
[2016-05-24] MEDS: ACETAMINOPHEN 325 MG TABLET/CAPLET (TYLENOL) PO PRN ×2 (21:51→21:52)
[2016-05-25] VITALS: BP 117/64
[2016-05-25] MEDS: CLINDAMYCIN 600 MG/50 ML IVPB 50 ML IV SCH (01:29)
[2016-05-25 04:00] VITALS: BP 124/70
[2016-05-25] MEDS: oxyCODONE/APAP 5/325MG (PERCOCET 5) TABLET PO PRN ×4 (04:01→19:54)
[2016-05-25 05:20] LABS: BASOPHILS % (AUTO) 0 % (0-10); EOSINOPHILS # (AUTO) 0.1 10^3/uL (0.0-0.3); EOSINOPHILS % (AUTO) 2 % (0-10); LYMPHOCYTES # (AUTO) 0.9 X 10^3 (1.0-4.0); LYMPHOCYTES % (AUTO) 16 % (12-44); MEAN CORPUSCULAR HEMOGLOBIN 25 PG (25-34); MEAN CORPUSCULAR HGB CONC 30 G/DL (32-36); MEAN CORPUSCULAR VOLUME 82 FL (80-99); MEAN PLATELET VOLUME 9.4 FL (7.4-10.4); MONOCYTES # (AUTO) 0.7 X 10^3 (0.0-1.0); MONOCYTES % (AUTO) 13 % (0-12); NEUTROPHILS # (AUTO) 3.7 X 10^3 (1.8-7.8); NEUTROPHILS % (AUTO) 69 % (42-75); PLATELET COUNT 171 10^3/uL (130-400); RED BLOOD COUNT 3.02 10^6/uL (4.35-5.85); RED CELL DISTRIBUTION WIDTH 17.2 % (10.0-14.5); WHITE BLOOD COUNT 5.4 10^3/uL (4.3-11.0)
[2016-05-25 05:35] LABS: ALANINE AMINOTRANSFERASE 118 U/L (0-55); ANION GAP 10 MMOL/L (5-14); ASPARTATE AMINO TRANSFERASE 120 U/L (5-34); BILIRUBIN,TOTAL 0.4 MG/DL (0.1-1.0); BLOOD UREA NITROGEN 9 MG/DL (7-18); BUN/CREATININE RATIO 12; CALCIUM 8.2 MG/DL (8.5-10.1); CARBON DIOXIDE 20 MMOL/L (21-32); CHLORIDE 102 MMOL/L (98-107); CREATININE SERUM 0.76 MG/DL (0.60-1.30); GFR ESTIMATED > 60; GLUCOSE 115 MG/DL (70-105); POTASSIUM 4.4 MMOL/L (3.6-5.0); SODIUM 132 MMOL/L (135-145); TOTAL PROTEIN 5.3 G/DL (6.4-8.2)
[2016-05-25] MEDS: ONDANSETRON 4 MG/2 ML (SDV) Z0FRAN IVP SCH ×3 (06:08→22:23)
[2016-05-25] MEDS: PANTOPRAZOLE 40 MG (PROTONIX) TAB PO SCH (06:08)
[2016-05-25] MEDS: KCL 10 MEQ TAB (MICRO K) PO SCH (06:09)
[2016-05-25] MEDS: D5 1/2 NS 1000 ML IV SOLUTION 1,000 ML IV SCH ×2 (06:43→15:20)
[2016-05-25] MEDS: LOSARTAN 50 MG (COZAAR) TAB PO SCH (08:28)
[2016-05-25] MEDS: FUROSEMIDE 20 MG (LASIX) TAB PO SCH (08:29)
[2016-05-25] MEDS: busPIRone 5 MG (BUSPAR) TAB PO SCH ×3 (08:29→22:22)
[2016-05-25] MEDS: SERTRALINE 100 MG (ZOLOFT) TAB PO SCH ×2 (08:29→22:22)
[2016-05-25] MEDS: NEBIVOLOL 5 MG TAB (BYSTOLIC) PO SCH (08:29)
[2016-05-25] MEDS: ASPIRIN E.C. 81 MG (ECOTRIN) TAB PO SCH (08:29)
[2016-05-25] MEDS: ENOXAPARIN 40 MG/0.4 ML (LOVENOX) SYR SC SCH (08:30)
[2016-05-25 08:35] VITALS: BP 122/65
--- NOTE | 2016-05-25 08:38 | Anesthesia-General Post-Op ---
General Patient Condition Mental Status/LOC: Same as Preop Cardiovascular: Satisfactory Nausea/Vomiting: Absent Respiratory: Satisfactory Pain: Controlled Complications: Absent Post Op Complications Complications None Follow Up Care/Instructions Patient Instructions None needed. Anesthesia/Patient Condition Patient Condition Patient is doing well, no complaints, stable vital signs, no apparent adverse anesthesia problems. No complications reported per nursing. JANETH EDUARDO CRNA May 25, 2016 08:38
--- NOTE | 2016-05-25 08:45 | Progress Note (SOAP) ---
Subjective Subjective/Events-last exam 71 yo F admitted for L hip fracture- surgery went well yesterday- Hgb this am 7.5, down from 9.4 admission- Pt report she is not doing the greatest. Would like to smoke. Denies vomiting. Endorses pain. Review of Systems General: No Night Sweats HEENT: No Head Aches, No Visual Changes Pulmonary: No Dyspnea, No Cough Cardiovascular: No: Chest Pain Gastrointestinal: No: Abdominal Pain, Nausea, Vomiting Genitourinary: No Dysuria Musculoskeletal: : other (left hip pain)No: neck pain, shoulder pain Neurological: : Weakness Objective Exam Vital Signs Date Time Temp Pulse Resp B/P Pulse Ox O2 Delivery O2 Flow Rate FiO2 05/25/16 06:42 92 4.00 05/25/16 04:00 98.3 93 20 124/70 95 Nasal Cannula 4.00 05/25/16 00:44 92 Nasal Cannula 4.00 05/25/16 00:00 98.3 94 20 117/64 Nasal Cannula 4.00 05/24/16 21:03 93 4.00 05/24/16 21:00 Nasal Cannula 05/24/16 19:20 98.5 96 16 115/68 98 Nasal Cannula 4.00 05/24/16 15:30 97.8 95 16 128/73 97 Nasal Cannula 4.00 05/24/16 14:27 92 4.00 05/24/16 12:50 97.9 92 18 132/68 95 Nasal Cannula 3.00 05/24/16 09:00 98 Nasal Cannula 2.00 I & O 05/25/16 07:00 Intake Total 1500 ml Output Total 2350 ml Balance -850 ml Capillary Refill : Less Than 3 SecondsLess Than 3 Seconds General Appearance: No Apparent Distress Other (edentulous) Neck: Non Tender Supple Respiratory: Chest Non Tender Lungs Clear Normal Breath Sounds Cardiovascular: Regular Rate, Rhythm No Edema (YANG hoses on.) Gastrointestinal: non tender soft Extremity: Non Tender No Calf Tenderness Neurologic/Psychiatric: Alert Oriented x3 Normal Mood/Affect Skin: Normal Color Warm/Dry Results Lab Laboratory Tests 05/25/16 05:11: Alanine Aminotransferase (ALT/SGPT) 118H, Albumin 3.0L, Alkaline Phosphatase 109 , Anion Gap 10, Aspartate Amino Transf (AST/SGOT) 120H, BUN/Creatinine Ratio 12 , Basophils # (Auto) 0.0, Basophils (%) (Auto) 0, Blood Urea Nitrogen 9, Calcium Level 8.2L, Carbon Dioxide Level 20L, Chloride Level 102, Creatinine 0.76, Eosinophils # (Auto) 0.1, Eosinophils (%) (Auto) 2, Estimat Glomerular Filtration Rate > 60, Glucose Level 115H, Hematocrit 25L, Hemoglobin 7.5#L, Lymphocytes # (Auto) 0.9L, Lymphocytes (%) (Auto) 16, Mean Corpuscular Hemoglobin 25, Mean Corpuscular Hemoglobin Concent 30L, Mean Corpuscular Volume 82, Mean Platelet Volume 9.4, Monocytes # (Auto) 0.7, Monocytes (%) (Auto) 13H, Neutrophils # (Auto) 3.7, Neutrophils (%) (Auto) 69, Platelet Count 171, Potassium Level 4.4, Red Blood Count 3.02L, Red Cell Distribution Width 17.2H, Sodium Level 132L, Total Bilirubin 0.4, Total Protein 5.3L, White Blood Count 5.4 Assessment/Plan Assessment/Plan Assess & Plan/Chief Complaint 71 yo F Left intertrochanteric hip fracture--ORIF 05/24/16 ortho consulted. Anemia- 9.4->7.5; monitor- rechecking at 1600hr- if it drops lower than 7.5 will transfuse 1u pRBC Transaminitis/elevated LFTs- improving. COPD - oxygen 4L NC, SVNS, resume home inhalers Hypertension--resume home meds GERD--resume protonix History of CVA with left sided hemiparesis - plavix, ASA, encourage smoking cessation Tobaccoism- encourage cessation transaminitis- improved Dispo: rechecking h&h at 1600. Order is in for rehab/snu evaluation. Clinical Quality Measures DVT/VTE Risk/Contraindication: Risk Factor Score Per Nursin RFS Level Per Nursing on Admit: 4+=Very High MADHU ANTOINE MD May 25, 2016 08:45
--- NOTE | 2016-05-25 11:57 | Occupational Therapy Eval ---
OT Evaluation-General/PLF Medical Diagnosis Admission Date May 23, 2016 at 22:50 Onset Date: May 23, 2016 Therapy Diagnosis Therapy Diagnosis: Left ORIF [id number] Height/Weight Height (Feet): 5 Height (Inches): 5.00 Weight (Pounds): 162 Weight (Ounces): 6.0 Precautions Precautions/Isolations: Seizure, Fall Prevention, Standard Precautions Safety Interventions: Bed Exit Alarm Weight Bear Status Weight Bearing Restriction: Full Weight Bearing Referral Referral Reason: Evaluation/Treatment Medical History Pertinent Medical History: Arthritis, CAD, COPD, CVA, HTN, PVD, Smoking Current History Patient reports she fell in the night when getting up to answer the telephone. She reports she has 24 hour care in her home in [place], [place] Reviewed History: Yes Social History Home: Single Level Current Living Status: Steps Into Home: 0 Steps Inside Home: 0 ADL-Prior Level of Function ADL PLOF Comments Patient reports that since returning home from her prior right hip fracture, she is able to bath and to dress herself. She reports using a cane for her ambulation. She is very drowsy and had to be awaken several times to complete this assessment. 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 DME/Equipment: Bath Bench, Grab Bars, Shower Hose Russian Language Professor Drive Self: No OT Current Status Subjective "Oh hi Ming." Appearance Patient supine in bed upon OT arrival. She is agreeable to this assessment but is drowsy. She reports pain about the left hip. She is on O2 continually at home but this is out of her nose, laying on the pillow. Mental Status/Objective Patient Orientation: Person, Place, Situation Current Glasses/Contacts: Yes Hearing Aids: No Dentures/Partials: Yes Hand Dominance: Right Upper Extremity ROM Functional range on the right, decreases slightly on the left from CVA Upper Extremity Coordination Intact right, difficulty noted in using the left hand due to old CVA. Upper Extremity Sensation Intact per report Upper Extremity Strength Right 5/5, left 4/5. Cylinder Sander Operator strength decreased left. ADL-Treatment Functional [place] Measure 0=Not Assessed/NA 4=Minimal Assistance 1=Total Assistance 5=Supervision or Setup 2=Maximal Assistance 6=Modified [place] 3=Moderate Assistance 7=Complete IndependenceIRFPAI Quality Coding Scale 6 Independent with activity with or without an assistive device 5 Patient requires set up or clean up by helper. Patient completes activity by themselves 4 Supervision or touching assist (CGA). [place] provide cues , steadying assist 3 The helper provides less than half the effort to complete the activity 2 The helper provides more than half the effort to complete the activity 1 Dependent. The helper does all the effort to complete an activity 7 Patient refused to complete or attempt activity 9 The patient did not perform the activity before the current illness or injury 88 Not attempted due to Medical conditions or safety concerns No FIM scores established at the time of this assessment. Patient post op day one from hip IM nailing. OT Short Term Goals Short Term Goals Time Frame: Jun 01, 2016 Eating(FIM): 6 Grooming(FIM): 5 Bathing(FIM): 4 Bathing Location: L Arm, R Arm, L Upper Leg, R Upper Leg, Chest, Abdomen, Buttocks, Perineal Area Upper Body Dressing(FIM): 4 Lower Body Dressing(FIM): 3 Toileting(FIM): 3 Transfers (B,C,W/C) (FIM): 3 Toilet/Commode Transfer(FIM): 3 Tub Transfer(FIM): 0 Shower Transfer(FIM): 3 1=Demonstrate adherence to instructed precautions during ADL tasks. 2=Patient will verbalize/demonstrate understanding of assistive devices/ modifications for ADL. 3=Patient will improve strength/tolerance for activity to enable patient to perform ADL's. OT Numerical Control Drill Press Operator Goals Jail Goals Time Frame: Jun 08, 2016 Eating (FIM): 7 Grooming(FIM): 6 Bathing(FIM): 5 Bathing Location: L Arm, R Arm, L Upper Leg, R Upper Leg, Chest, Abdomen, Buttocks, Perineal Area Upper Body Dressing(FIM): 5 Lower Body Dressing(FIM): 4 Toileting(FIM): 4 Transfers (B,C,W/C) (FIM): 4 Toilet/Commode Transfer(FIM): 4 Tub Transfer(FIM): 0 Shower Transfer(FIM): 4 1=Demonstrate adherence to instructed precautions during ADL tasks. 2=Patient will verbalize/demonstrate understanding of assistive devices/ modifications for ADL. 3=Patient will improve strength/tolerance for activity to enable patient to perform ADL's. OT Education/Plan Problem List/Assessment Assessment: Decreased Activ Tolerance, Decreased UE Strength, Impaired Bed Mobility, Impaired Funct Balance, Impaired Self-Care Skills, Restricted Funct UE ROM Discharge Recommendations Plan/Recommendations: Continue POC Barriers to Progress Currently the medication is making patient drowsy. Prior history of CVA and a right hip fracture in 2016. Balance issues. Target Placement Unknown currently. Patient/Family Goals Unknown Treatment Plan/Plan of Care Treatment,Training & Education: Yes Patient would benefit from OT for education, treatment and training to promote independence in ADL's, mobility, safety and/or upper extremity function for ADL' s. Plan of Care: ADL Retraining, Caregiver Training, Functional Mobility, Group Exercise/Act as Ind, UE Funct Exercise/Act # of days/week 5, as needed Friday. Agreement: Yes Rehab Potential: Guarded Time/GCodes Start Time: 10:30 Stop Time: 10:48 Total Time Billed (hr/min): 18 Billed Treatment Time Visit, [facility] Codes Necessary: No SAMANTHA SMITH OT May 25, 2016 11:57
[2016-05-25 12:00] VITALS: BP 117/65
--- NOTE | 2016-05-25 12:04 | Physical Therapy Evaluation ---
PT Evaluation-General Medical Diagnosis Admission Date May 23, 2016 at 22:50 Medical Diagnosis: L hip Fx; s/p IM nail Onset Date: May 24, 2016 Therapy Diagnosis Therapy Diagnosis: decreased functional mobility Height/Weight Height (Feet): 5 Height (Inches): 5.00 Weight (Pounds): 162 Weight (Ounces): 6.0 Precautions Precautions/Isolations: Seizure, Fall Prevention, Standard Precautions Weight Bear Status Weight Bearing Restriction: Weight Bearing/Tolerated Location Restriction: L LE Referral Physician: MARCY Reason for Referral: Evaluation/Treatment Medical History Pertinent Medical History: Arthritis, CAD, COPD, CVA, HTN, PVD, Smoking Additional Medical History anxiety, (R) hip Fx Current History Pt reports she got up to answer the phone, lost her balance and fell, hitting her head. (L) intertrochanteric hip Fx s/p IM nail Reviewed History: Yes Social History Home: Single Level Current Living Status: Alone Entry Into Home: Level Entry Prior/Core FIM Prior Level of Function Functional [place] Measure 0=Not Assessed/NA 4=Minimal Assistance 1=Total Assistance 5=Supervision or Setup 2=Maximal Assistance 6=Modified [place] 3=Moderate Assistance 7=Complete [place] Bed Mobility: 6 Transfers (B,C,W/C) (FIM): 6 Gait: 6 (QC) Pt reports mod (I) with QC and with ADLS PT Evaluation-Current Subjective Pt agreeable. Sleepy but following most cues appropriately. Pain Numeric Pain Scale: 8 Location: Left Location Body Site: Hip Pain Description: Ache Objective Patient Orientation: Person, Place, Time, Situation Problem Solving: Poor Attachments: SCD's, Oxygen, Tran Catheter ROM/Strength ROM Upper Extremities See OT ROM Lower Extremities Resistant to (L) LE ROM, (R) appears WFL for mobility Strength Upper Extremities See OT Strenght Lower Extremities (R) LE grossly 3/5; (L) grossly 1+/5 hip, 2-/5 knee Integumentary/Posture Integumentary See nurses' notes Bladder Incontinence: Tran Cath Posture Flexed posture Neuromuscular (Tone, Coordination, Reflexes) (L) neglect Sensory Hearing: Functional Transfers Functional [place] Measure 0=Not Assessed/NA 4=Minimal Assistance 1=Total Assistance 5=Supervision or Setup 2=Maximal Assistance 6=Modified [place] 3=Moderate Assistance 7=Complete [place] Transfers (B, C, W/C) (FIM): 1 Scootin Supine to/from Sit: 1 Sit to/from Stand: 3 Pt very retropulsive, standing with flexed posture. Unable to correct retropulsion; unsafe to attempt transfer to chair, gait. Gait Mode of Locomotion: Walk Anticipated Mode of Locomotion: Walk Gait (FIM): 0 Distance (FIM): 0=does not occure Comments/Gait Description Unsafe to attempt this date. Pt retropulsive in standing and unable to correct with tactile, VCS. Stairs If not tested on admit;explain Unsafe to attempt Balance Sitting Static: Fair Sitting Dynamic: Poor Standing Static: Poor Standing Dynamic: Poor Treatment Eval. Returned to bed with breakfast tray set-up, SCDs in place, rails up. Assessment/Needs Pt would benefit from skilled PT to address decreased functional strength and mobility to allow decreased caregiver burden upon discharge. Clinical presentation: high complexity, unstable. Rehab Potential: Fair ((L) neglect from previous CVA) PT Short Term Goals Short Term Goals Time Frame: Jun 01, 2016 Transfers (B,C,W/C) (FIM): 4 PT Handicapper Harness Racing Goals Halfway Goals PT Handicapper Harness Racing Goals Time Frame: Jun 15, 2016 Transfers (B,C,W/C) (FIM): 6 Gait (FIM): 4 Gait distance (FIM): 3=150 ft Distance: 150 Gait Level of Assist: 4 Gait Assistive Device: FWW PT goals established to increase (I) with functional mobility to improve safety , decrease caregiver burden. PT Plan Problem List Problem List: Activity Tolerance, Functional Strength, Safety, Balance, Gait, Transfer, Bed Mobility, ROM Treatment/Plan Treatment Plan: Continue Plan of Care Treatment Plan: Bed Mobility, Education, Functional Activity Mariano, Functional Strength, Gait, Safety, Therapeutic Exercise, Transfers Treatment Duration: Jun 15, 2016 # of days/week 6-7 Visits Per Week: 11-12 Pt/Family Agrees w/Plan: Yes Safety Risks/Education Teaching Recipient: Patient Teaching Methods: Discussion Response to Teaching: Reinforcement Needed PT POC Discharge Recommendations Therapy D/C Recommendations: [facility] (TCU/NH) Barriers to Progress (L) neglect Time/GCodes Time In: 0854 Time Out: 09 Total Billed Treatment Time: 25 Total Billed Treatment 1, [facility] x 25' G Codes Necessary: MOMO [place] DPRinku May 25, 2016 12:04
--- NOTE | 2016-05-25 15:18 | Progress Note-Standard ---
Standard Progress Note Progress Notes/Assess & Plan Progress/Assessment & Plan Subjective: She states still painful. Nursing states no sign of ortho static hypotension. Objective: Mild AAROM of left hip appeared to be only mildly painful after a few cycles. No SOB while talking. Adequate color. Lab: Hgb 7.5 Assessment: Post Operative anemia. Stable left hip one day post Op for intertrochanteric ORIF Plan: Urge her to get up and dangle and stand more often, even once an hour while awake if possible. Final Diagnosis Post Operative anemia. Stable left hip one day post Op for intertrochanteric ORIF GILL VIDAL MD May 25, 2016 15:18
[2016-05-25 16:00] VITALS: BP 122/66
[2016-05-25 20:00] VITALS: BP 148/70
[2016-05-25] MEDS: POLYETHYLENE GLYCOL 17 GM (MIRALAX) PACK PO SCH (22:21)
[2016-05-25] MEDS: DIVALPROEX 250 MG DELAYED RELEASE (DEPAKOTE) TAB PO SCH (22:22)
[2016-05-26] VITALS: BP 103/59
[2016-05-26] MEDS: D5 1/2 NS 1000 ML IV SOLUTION 1,000 ML IV SCH ×3 (00:42→19:17)
[2016-05-26 04:00] VITALS: BP 152/71
[2016-05-26] MEDS: oxyCODONE/APAP 5/325MG (PERCOCET 5) TABLET PO PRN ×4 (04:07→21:10)
[2016-05-26 05:35] LABS: BASOPHILS % (AUTO) 0 % (0-10); EOSINOPHILS # (AUTO) 0.3 10^3/uL (0.0-0.3); EOSINOPHILS % (AUTO) 4 % (0-10); LYMPHOCYTES # (AUTO) 1.1 X 10^3 (1.0-4.0); LYMPHOCYTES % (AUTO) 16 % (12-44); MEAN CORPUSCULAR HEMOGLOBIN 25 PG (25-34); MEAN CORPUSCULAR HGB CONC 31 G/DL (32-36); MEAN CORPUSCULAR VOLUME 82 FL (80-99); MEAN PLATELET VOLUME 9.9 FL (7.4-10.4); MONOCYTES # (AUTO) 0.7 X 10^3 (0.0-1.0); MONOCYTES % (AUTO) 11 % (0-12); NEUTROPHILS # (AUTO) 4.4 X 10^3 (1.8-7.8); NEUTROPHILS % (AUTO) 68 % (42-75); PLATELET COUNT 176 10^3/uL (130-400); RED BLOOD COUNT 3.01 10^6/uL (4.35-5.85); RED CELL DISTRIBUTION WIDTH 17.6 % (10.0-14.5); WHITE BLOOD COUNT 6.4 10^3/uL (4.3-11.0)
[2016-05-26 05:52] LABS: ALBUMIN 3.1 G/DL (3.2-4.5); ANION GAP 11 MMOL/L (5-14); BLOOD UREA NITROGEN 11 MG/DL (7-18); BUN/CREATININE RATIO 13; CALCIUM 8.8 MG/DL (8.5-10.1); CARBON DIOXIDE 22 MMOL/L (21-32); CHLORIDE 99 MMOL/L (98-107); CREATININE SERUM 0.86 MG/DL (0.60-1.30); GFR ESTIMATED > 60; GLUCOSE 115 MG/DL (70-105); POTASSIUM 4.3 MMOL/L (3.6-5.0); SODIUM 132 MMOL/L (135-145)
[2016-05-26] MEDS: ONDANSETRON 4 MG/2 ML (SDV) Z0FRAN IVP SCH ×3 (06:18→21:10)
[2016-05-26] MEDS: KCL 10 MEQ TAB (MICRO K) PO SCH (06:18)
[2016-05-26] MEDS: PANTOPRAZOLE 40 MG (PROTONIX) TAB PO SCH (06:18)
[2016-05-26 08:00] VITALS: BP 119/68
[2016-05-26] MEDS: ASPIRIN E.C. 81 MG (ECOTRIN) TAB PO SCH (08:54)
[2016-05-26] MEDS: SERTRALINE 100 MG (ZOLOFT) TAB PO SCH ×2 (08:54→21:10)
[2016-05-26] MEDS: LOSARTAN 50 MG (COZAAR) TAB PO SCH (08:54)
[2016-05-26] MEDS: FUROSEMIDE 20 MG (LASIX) TAB PO SCH (08:54)
[2016-05-26] MEDS: busPIRone 5 MG (BUSPAR) TAB PO SCH ×3 (08:55→21:10)
[2016-05-26] MEDS: ENOXAPARIN 40 MG/0.4 ML (LOVENOX) SYR SC SCH (08:55)
[2016-05-26] MEDS: NEBIVOLOL 5 MG TAB (BYSTOLIC) PO SCH (08:55)
--- NOTE | 2016-05-26 09:13 | Physical Therapy Daily Note ---
PT Daily Note-Current Subjective Pt in bed, agreeable. Pt mildly confused; asking where she was and if she was going home today or tomorrow. Nursing agreeable to up to chair. Reports (L) hip pain but unable to rate. Pt following approximately 40-50% of VCS. Mental Status Patient Orientation: Person, Confused Attachments: SCD's, IV Transfers Functional [place] Measure 0=Not Assessed/NA 4=Minimal Assistance 1=Total Assistance 5=Supervision or Setup 2=Maximal Assistance 6=Modified [place] 3=Moderate Assistance 7=Complete IndependenceIRFPAI Quality Coding Scale 6 Independent with activity with or without an assistive device 5 Patient requires set up or clean up by helper. Patient completes activity by themselves 4 Supervision or touching assist (CGA). [place] provide cues , steadying assist 3 The helper provides less than half the effort to complete the activity 2 The helper provides more than half the effort to complete the activity 1 Dependent. The helper does all the effort to complete an activity 7 Patient refused to complete or attempt activity 9 The patient did not perform the activity before the current illness or injury 88 Not attempted due to Medical conditions or safety concerns Transfers (B, C, W/C) (FIM): 2 Supine to/from Sit: 2 Sit to/from Stand: 2 Bed to/from Chair: 2 Max A x 1 for TFRs this date. Attempted bed->chair with FWW but Pt unable to sequence. Performed SPT to (R) with max A x 1. Pt unable to initiate step or even scooting of either foot. Very retropulsive with flexed posture. Severe (L) neglect. Weight Bearing Weight Bearing Restriction: Weight Bearing/Tolerated Location Restriction: L LE Gait Training Gait (FIM): 0 Exercises Supine Ex: Ankle pumps, Quad Set, Heel Slides Supine Reps: 15 Pt required max VCS to complete exercises on (R) side, not completing on (L). HS with max A x 1. Treatments Ther ex for ROM, functional strengthening. TFR training. Up in chair with estella strap for safety, needs met, O2 in situ. Nurse present. Assessment Current Status: Poor Progress Pt tolerated fair. Sleepy, decreased command following. Unable to initiate steps to TFR with either LE. Retropulsive with sitting and standing. Poor functional activity tolerance. Limited by (L) neglect/weakness from prior CVA as well. PT Short Term Goals Short Term Goals Time Frame: Jun 01, 2016 Transfers (B,C,W/C) (FIM): 3 PT Prison Goals Prison Goals PT Radiographer Mammographer Goals Time Frame: Jun 15, 2016 Transfers (B,C,W/C) (FIM): 6 Gait (FIM): 4 Gait distance (FIM): 3=150 ft Distance: 150 Gait Level of Assist: 4 Gait Assistive Device: FWW PT Plan Problem List Problem List: Activity Tolerance, Functional Strength, Safety, Balance, Gait, Transfer, Bed Mobility, ROM Treatment/Plan Treatment Plan: Continue Plan of Care Treatment Plan: Bed Mobility, Education, Functional Activity Mariano, Functional Strength, Gait, Safety, Therapeutic Exercise, Transfers Treatment Duration: Jun 15, 2016 Visits Per Week: 11-12 Pt/Family Agrees w/Plan: Yes Safety Risks/Education Patient Education: Transfer Techniques Teaching Recipient: Patient Teaching Methods: Demonstration, Discussion Response to Teaching: Unable to Return Demonstration, Unable to Comprehend Discharge Recommendations Therapy D/C Recommendations: Nursing Home (TCU/NH) Barriers to Progress alertness, (L) neglect and weakness from prior CVA Time/GCodes Time In: 834 Time Out: 904 Total Billed Treatment Time: 30 Total Billed Treatment 1, EX x 10', FA x 20' G Codes Necessary: MOMO [place] DPRinku May 26, 2016 09:13
--- NOTE | 2016-05-26 11:51 | Progress Note (SOAP) ---
Subjective Subjective/Events-last exam cc: left hip pain, fracture 71 yo F - no overnight events- pt reports she feels better today compared to yesterday- feels more awake/alert. Not able to work with PT much- due to left hip pain. At 2000hr 05/25/16 had 100.9F temp, none since.- 9am 97.7F. WBC normal - urinary catheter pulled yesterday- will order UA. Pt denies n/v. Feels like she is breathing really well. Not wearing oxygen in daytime. Review of Systems General: No Chills, No Night Sweats HEENT: No Head Aches Pulmonary: No Dyspnea, Cough Cardiovascular: No: Chest Pain, Palpitations Gastrointestinal: No: Abdominal Pain, Nausea, Vomiting Genitourinary: No Dysuria Musculoskeletal: : leg pain (left hip)No: neck pain Neurological: : Weakness Objective Exam Vital Signs Date Time Temp Pulse Resp B/P Pulse Ox O2 Delivery O2 Flow Rate FiO2 05/26/16 09:00 98 Nasal Cannula 3.00 05/26/16 08:00 97.7 81 18 119/68 95 Nasal Cannula 3.50 05/26/16 04:00 100.0 92 18 152/71 93 Nasal Cannula 3.50 05/26/16 00:00 99.2 78 20 103/59 90 Nasal Cannula 2.50 05/25/16 21:00 Nasal Cannula 3.00 05/25/16 20:00 100.9 100 18 148/70 93 Nasal Cannula 3.50 05/25/16 19:29 3.50 05/25/16 16:00 98.3 79 16 122/66 99 Nasal Cannula 4.00 05/25/16 12:00 98.5 83 18 117/65 95 Nasal Cannula 4.00 05/25/16 12:00 98.5 83 18 117/65 95 Nasal Cannula 4.00 I & O 05/26/16 07:00 Intake Total 1860 ml Output Total 900 ml Balance 960 ml Capillary Refill : Less Than 3 SecondsLess Than 3 Seconds General Appearance: No Apparent Distress HEENT: PERRL/EOMI Neck: Non Tender Supple Respiratory: Chest Non Tender Lungs Clear Normal Breath Sounds No Accessory Muscle Use No Respiratory Distress Cardiovascular: Regular Rate, Rhythm No Edema Gastrointestinal: normal bowel sounds non tender soft Extremity: No Calf Tenderness Neurologic/Psychiatric: Alert Normal Mood/Affect Skin: Warm/Dry Results Lab Laboratory Tests 05/25/16 15:58: Hematocrit 25L, Hemoglobin 7.8L 05/26/16 04:30: Hematocrit 25L, Hemoglobin 7.5L, Albumin 3.1L, Anion Gap 11, BUN/Creatinine Ratio 13, Basophils # (Auto) 0.0, Basophils (%) (Auto) 0, Blood Urea Nitrogen 11 , Calcium Level 8.8, Carbon Dioxide Level 22, Chloride Level 99, Creatinine 0.86 , Eosinophils # (Auto) 0.3, Eosinophils (%) (Auto) 4, Estimat Glomerular Filtration Rate > 60, Glucose Level 115H, Lymphocytes # (Auto) 1.1, Lymphocytes (%) (Auto) 16, Mean Corpuscular Hemoglobin 25, Mean Corpuscular Hemoglobin Concent 31L, Mean Corpuscular Volume 82, Mean Platelet Volume 9.9, Monocytes # ( Auto) 0.7, Monocytes (%) (Auto) 11, Neutrophils # (Auto) 4.4, Neutrophils (%) ( Auto) 68, Phosphorus Level 3.0, Platelet Count 176, Potassium Level 4.3, Red Blood Count 3.01L, Red Cell Distribution Width 17.6H, Sodium Level 132L, White Blood Count 6.4 Microbiology 05/24/16 MRSA Screen - Final, Complete MRSA not isolated Assessment/Plan Assessment/Plan Assess & Plan/Chief Complaint 71 yo F Left intertrochanteric hip fracture--ORIF 05/24/16 ortho consulted. Anemia- 9.4->7.5; monitor- rechecking in AM- if it drops lower than 7.5 or pt becomes symptomatic will transfuse 1u pRBC Transaminitis/elevated LFTs- improving. COPD - oxygen 2-3L NC while sleeping; does not use it while awake, SVNS, resume home inhalers Hypertension--resume home meds GERD--resume protonix History of CVA with left sided hemiparesis - ASA, encourage smoking cessation Tobaccoism- encourage cessation Dispo: Order is in for rehab/snu evaluation. PT recommends Skilled. UA ordered for fever - No fever since. Pt does not appear acutely ill. Not on any antibiotics. Did get clindamycin for the surgery. Monitoring Hgb. Clinical Quality Measures DVT/VTE Risk/Contraindication: Risk Factor Score Per Nursin RFS Level Per Nursing on Admit: 4+=Very High MADHU ANTOINE MD May 26, 2016 11:50
[2016-05-26 12:00] VITALS: BP 128/67
[2016-05-26 12:27] LABS: BILIRUBIN,URINE NEGATIVE (NEGATIVE); KETONES,URINE NEGATIVE (NEGATIVE); LEUKOCYTE ESTERASE ,URINE 1+ (NEGATIVE); NITRITE,URINE NEGATIVE (NEGATIVE); PH,URINE 6 (5-9); PROTEIN,URINE 1+ (NEGATIVE); UROBILINOGEN,URINE 1 MG/DL (NORMAL)
[2016-05-26 12:34] LABS: SQUAMOUS EPITHELIAL CELL,UR >50 /HPF; WBC,URINE RARE /HPF
[2016-05-26 16:00] VITALS: BP 108/65
--- NOTE | 2016-05-26 17:17 | Progress Note-Standard ---
Standard Progress Note Progress Notes/Assess & Plan Progress/Assessment & Plan S- "my hip still hurts. Better than yesterday" Nursing reports PT only able to have patient take a few steps to cover 1-2 feet to travel to chair. She did sit up for 3 hours. Can't use walker easily due to her left sided weakness. O Alert and appropriate. Mild PROM left hip with no secondary signs of pain. HGB 7.5, similar to yesterday. A- Ortho Stable POD #3 P- To assisted any time cleared by her primary care MDs Labs, Vital Signs, I&O Laboratory Tests 05/26/16 04:30: Albumin 3.1L, Anion Gap 11, BUN/Creatinine Ratio 13, Basophils # (Auto) 0.0, Basophils (%) (Auto) 0, Blood Urea Nitrogen 11, Calcium Level 8.8, Carbon Dioxide Level 22, Chloride Level 99, Creatinine 0.86, Eosinophils # (Auto) 0.3, Eosinophils (%) (Auto) 4, Estimat Glomerular Filtration Rate > 60, Glucose Level 115H, Hematocrit 25L, Hemoglobin 7.5L, Lymphocytes # (Auto) 1.1, Lymphocytes (%) (Auto) 16, Mean Corpuscular Hemoglobin 25, Mean Corpuscular Hemoglobin Concent 31L, Mean Corpuscular Volume 82, Mean Platelet Volume 9.9, Monocytes # (Auto) 0.7, Monocytes (%) (Auto) 11, Neutrophils # (Auto) 4.4, Neutrophils (%) (Auto) 68, Phosphorus Level 3.0, Platelet Count 176, Potassium Level 4.3, Red Blood Count 3.01L, Red Cell Distribution Width 17.6H, Sodium Level 132L, White Blood Count 6.4 05/26/16 12:15: Urine Bacteria NEGATIVE, Urine Bilirubin NEGATIVE, Urine Casts NONE, Urine Clarity VERY CLOUDYH, Urine Color YELLOW, Urine Crystals NONE, Urine Culture Indicated NO, Urine Glucose (UA) NEGATIVE, Urine Ketones NEGATIVE, Urine Leukocyte Esterase 1+H, Urine Mucus NEGATIVE, Urine Nitrite NEGATIVE, Urine Protein 1+H, Urine RBC RARE, Urine RBC (Auto) NEGATIVE, Urine Specific [place] 1.010L, Urine Squamous Epithelial Cells >50H, Urine Urobilinogen 1, Urine WBC RARE, Urine pH 6 Microbiology 05/24/16 MRSA Screen - Final, Complete MRSA not isolated Vital Sign - Last 12Hours 05/26/16 05/26/16 05/26/16 05/26/16 08:00 09:00 12:00 16:57 Temp 97.7 98.2 Pulse 81 81 Resp 18 18 B/P 119/68 128/67 Pulse Ox 95 98 94 92 O2 Delivery Nasal Cannula Nasal Cannula Nasal Cannula O2 Flow Rate 3.50 3.00 3.50 2.00 Intake and Output 05/26/16 00:00 Intake Total 560 ml Output Total 900 ml Balance -340 ml Clinical Quality Measures DVT/VTE Risk/Contraindication: Risk Factor Score Per Nursin RFS Level Per Nursing on Admit: 4+=Very High GILL VIDAL MD May 26, 2016 5:17 pm
[2016-05-26 20:00] VITALS: BP 138/59
[2016-05-26] MEDS: POLYETHYLENE GLYCOL 17 GM (MIRALAX) PACK PO SCH (21:10)
[2016-05-26] MEDS: DIVALPROEX 250 MG DELAYED RELEASE (DEPAKOTE) TAB PO SCH (21:10)
[2016-05-27] VITALS (13 sets, daily range): BP systolic 105–152; BP diastolic 50–71
[2016-05-27] MEDS: D5 1/2 NS 1000 ML IV SOLUTION 1,000 ML IV SCH ×2 (04:54→16:34)
[2016-05-27 05:20] LABS: BASOPHILS % (AUTO) 0 % (0-10); EOSINOPHILS # (AUTO) 0.2 10^3/uL (0.0-0.3); EOSINOPHILS % (AUTO) 5 % (0-10); LYMPHOCYTES # (AUTO) 0.9 X 10^3 (1.0-4.0); LYMPHOCYTES % (AUTO) 18 % (12-44); MEAN CORPUSCULAR HEMOGLOBIN 25 PG (25-34); MEAN CORPUSCULAR HGB CONC 31 G/DL (32-36); MEAN CORPUSCULAR VOLUME 81 FL (80-99); MEAN PLATELET VOLUME 10.1 FL (7.4-10.4); MONOCYTES # (AUTO) 0.6 X 10^3 (0.0-1.0); MONOCYTES % (AUTO) 12 % (0-12); NEUTROPHILS # (AUTO) 3.3 X 10^3 (1.8-7.8); NEUTROPHILS % (AUTO) 65 % (42-75); PLATELET COUNT 169 10^3/uL (130-400); RED BLOOD COUNT 2.71 10^6/uL (4.35-5.85); RED CELL DISTRIBUTION WIDTH 17.4 % (10.0-14.5)
[2016-05-27] MEDS: KCL 10 MEQ TAB (MICRO K) PO SCH (05:20)
[2016-05-27] MEDS: PANTOPRAZOLE 40 MG (PROTONIX) TAB PO SCH ×3 (05:20→20:24)
[2016-05-27] MEDS: ONDANSETRON 4 MG/2 ML (SDV) Z0FRAN IVP SCH ×3 (05:20→22:14)
[2016-05-27] MEDS: oxyCODONE/APAP 5/325MG (PERCOCET 5) TABLET PO PRN ×3 (05:20→22:18)
[2016-05-27 05:48] LABS: ANION GAP 9 MMOL/L (5-14); BLOOD UREA NITROGEN 9 MG/DL (7-18); BUN/CREATININE RATIO 12; CALCIUM 8.6 MG/DL (8.5-10.1); CARBON DIOXIDE 22 MMOL/L (21-32); CHLORIDE 103 MMOL/L (98-107); CREATININE SERUM 0.74 MG/DL (0.60-1.30); GFR ESTIMATED > 60; GLUCOSE 114 MG/DL (70-105); POTASSIUM 4.1 MMOL/L (3.6-5.0); SODIUM 134 MMOL/L (135-145)
[2016-05-27] MEDS: LOSARTAN 50 MG (COZAAR) TAB PO SCH (08:26)
[2016-05-27] MEDS: ASPIRIN E.C. 81 MG (ECOTRIN) TAB PO SCH (08:26)
[2016-05-27] MEDS: FUROSEMIDE 20 MG (LASIX) TAB PO SCH (08:26)
[2016-05-27] MEDS: SERTRALINE 100 MG (ZOLOFT) TAB PO SCH ×2 (08:26→20:24)
[2016-05-27] MEDS: ENOXAPARIN 40 MG/0.4 ML (LOVENOX) SYR SC SCH (08:26)
[2016-05-27] MEDS: busPIRone 5 MG (BUSPAR) TAB PO SCH ×3 (08:26→20:25)
[2016-05-27] MEDS: NEBIVOLOL 5 MG TAB (BYSTOLIC) PO SCH (08:27)
[2016-05-27] MEDS: RT-ALBUTEROL/IPRATROPIUM 3 ML (DUONEB) VIAL INH SCH ×3 (10:10→19:15)
--- NOTE | 2016-05-27 11:11 | Physician Query ---
PQ-Further Specificity Admission/Discharge Admission Date: May 23, 2016 at 22:50 Discharge Date: The medical record reflects the following clinical scenario: History/Risk Factors: Intertrochanteric fracture of left hip/Intramedullary kushal placement. Clinical Findings: 200 cc blood loss during surgery. Admit Hgb 9.4 dropping to 6.8 on 05/27/16. Treatment: CBCs with monitoring. I unit of blood ordered on 05/27/16. Question: Can you further specify post op anemia per the clinical indicators above? Please document below. 1. Post op anemia due to acute blood loss. 2. Post op anemia due to chronic blood loss. 3. Other, with explanation of the clinical findings. 4. Clinically undetermined, no explanation for the clinical findings. PHYSICIAN RESPONSE Can you specify per above: Other, explanation/clinical finding Explanation/Clinical Findings Pt has underlying anemia at baseline -anemia was further accentuated by IV fluid hydration in preparation for the surgery. -pt also has Post op anemia due to acute blood loss - but this does not completely account for the hgb drop- as noted above. Hopefully this clarifies- thanks, Marko Phelan MD Please remember a lack of response to the above will prompt a phone page by [facility]/ coding staff. In responding to this query, please exercise your independent professional judgment. The purpose of this communication is to more accurately reflect the complexity of your patients condition. The fact that a question is asked does not imply that any particular answer is desired or expected. Thank you for your timely response to this clarification. Requestors name: Tarsha Guadarrama [facility] Phone # ext [phone] or [phone] THIS PHYSICIAN QUERY FORM IS A PERMANENT PART OF THE MEDICAL RECORD TARSHA GUADARRAMA May 27, 2016 11:11 MARKO PHELAN MD May 27, 2016 18:05
[2016-05-27] MEDS ORDERED: NS IV 500 ML 500 ML ONE (11:20)
--- NOTE | 2016-05-27 11:20 | Physical Therapy Daily Note ---
PT Daily Note-Current Subjective Patient is agreeable to participate with PT. Patient is incontinent urine requiring dependent assist to cleanse and change patient. Pain Numeric Pain Scale: 10-Worst Possible Pain Location: Left Location Body Site: Hip Pain Description: Acute Comment: FLACC Mental Status Patient Orientation: Confused Attachments: Oxygen, IV Transfers Functional [place] Measure 0=Not Assessed/NA 4=Minimal Assistance 1=Total Assistance 5=Supervision or Setup 2=Maximal Assistance 6=Modified [place] 3=Moderate Assistance 7=Complete IndependenceIRFPAI Quality Coding Scale 6 Independent with activity with or without an assistive device 5 Patient requires set up or clean up by helper. Patient completes activity by themselves 4 Supervision or touching assist (CGA). [place] provide cues , steadying assist 3 The helper provides less than half the effort to complete the activity 2 The helper provides more than half the effort to complete the activity 1 Dependent. The helper does all the effort to complete an activity 7 Patient refused to complete or attempt activity 9 The patient did not perform the activity before the current illness or injury 88 Not attempted due to Medical conditions or safety concerns Transfers (B, C, W/C) (FIM): 1 Scootin Rollin Supine to/from Sit: 1 Sit to/from Stand: 1 Bed to/from Chair: 1 Patient able to sit EOB without assistance after dependent assist with bed mobility; dependent assist with sit to stand and SPT bed to recliner to right. Patient presents with scissor stance with left over right LE due to inability to advance either LE. Weight Bearing Location Restriction: L LE Exercises Supine Ex: Ankle pumps, Heel Slides, Straight leg raise Supine Reps: 15 (AAROM) Assessment Patient tolerates minimal activity and is up in recliner with needs met. PT will advance to platform FWW upon patient ability to perform safe bed mobility and sit to stand transfers. PT Short Term Goals Short Term Goals Time Frame: Jun 01, 2016 Transfers (B,C,W/C) (FIM): 3 PT Shelter Goals Crisis Counselor Goals PT Shelter Goals Time Frame: Jun 15, 2016 Transfers (B,C,W/C) (FIM): 6 Gait (FIM): 4 Gait distance (FIM): 3=150 ft Distance: 150 Gait Level of Assist: 4 Gait Assistive Device: FWW PT Plan Treatment/Plan Treatment Plan: Continue Plan of Care Treatment Plan: Bed Mobility, Education, Functional Activity Mariano, Functional Strength, Gait, Safety, Therapeutic Exercise, Transfers Treatment Duration: Jun 15, 2016 Visits Per Week: 11-12 Discharge Recommendations Therapy D/C Recommendations: Usp (TCU/NH) Time/GCodes Time In: 1020 Time Out: 1045 Total Billed Treatment Time: 25 Total Billed Treatment 1 visit FA 15 min EX 10 min JOHN TINOCO PT May 27, 2016 11:19
--- NOTE | 2016-05-27 11:25 | Occupational Ther Daily Note ---
OT Current Status-Daily Note Subjective Pt seen in room, up in recliner after PT. No pain mentioned Appearance Cooperative, flat affect, L neglect Mental Status/Objective Functional [place] Measure 0=Not Assessed/NA 4=Minimal Assistance 1=Total Assistance 5=Supervision or Setup 2=Maximal Assistance 6=Modified [place] 3=Moderate Assistance 7=Complete [place] ADL-Treatment Pt demonstrates L neglect during communications and tends to lean toward her right side. Pt has limited use L UE and was able to do 5 reps self ROM with education, physical assistance, rest between 3rd and 4th reps. Pt had recently been incontinent and reported she wore paper underwear. Recommend to start with nightgowns for ADLs to make toileting easier. Granddaughter and grandson present and will bring in clothing. Pt left up in recliner, eating corn snacks, all needs met. Grooming (FIM): 4 (Pt was able to wash face but needed physical and verbal cues to comb her hair (neglecting L side and front). ) Education OT Patient Education: Modified ADL techniques, Purpose of tx/functional activities Teaching Recipient: Patient Teaching Methods: Discussion Response to Teaching: Return Demonstration, Reinforcement Needed OT Short Term Goals Short Term Goals Time Frame: Jun 01, 2016 Eating(FIM): 6 Grooming(FIM): 5 Bathing(FIM): 4 Bathing Location: L Arm, R Arm, L Upper Leg, R Upper Leg, Chest, Abdomen, Buttocks, Perineal Area Upper Body Dressing(FIM): 4 Lower Body Dressing(FIM): 3 Toileting(FIM): 3 Transfers (B,C,W/C) (FIM): 3 Toilet/Commode Transfer(FIM): 3 Tub Transfer(FIM): 0 Shower Transfer(FIM): 3 1=Demonstrate adherence to instructed precautions during ADL tasks. 2=Patient will verbalize/demonstrate understanding of assistive devices/ modifications for ADL. 3=Patient will improve strength/tolerance for activity to enable patient to perform ADL's. OT Skilled Nursing Goals [employer] Goals Time Frame: Jun 08, 2016 Eating (FIM): 7 Grooming(FIM): 6 Bathing(FIM): 5 Bathing Location: L Arm, R Arm, L Upper Leg, R Upper Leg, Chest, Abdomen, Buttocks, Perineal Area Upper Body Dressing(FIM): 5 Lower Body Dressing(FIM): 4 Toileting(FIM): 4 Transfers (B,C,W/C) (FIM): 4 Toilet/Commode Transfer(FIM): 4 Tub Transfer(FIM): 0 Shower Transfer(FIM): 4 1=Demonstrate adherence to instructed precautions during ADL tasks. 2=Patient will verbalize/demonstrate understanding of assistive devices/ modifications for ADL. 3=Patient will improve strength/tolerance for activity to enable patient to perform ADL's. OT Education/Plan Discharge Recommendations Plan/Recommendations: Continue POC Treatment Plan/Plan of Care Patient would benefit from OT for education, treatment and training to promote independence in ADL's, mobility, safety and/or upper extremity function for ADL' s. Plan of Care: ADL Retraining, Caregiver Training, Functional Mobility, Group Exercise/Act as Ind, UE Funct Exercise/Act Agreement: Yes Rehab Potential: Guarded Time/GCodes Start Time: 10:55 Stop Time: 11:10 Total Time Billed (hr/min): 15 Billed Treatment Time visit, 10 minutes ADL, 5 minutes exercise SENDY NOBLE OT May 27, 2016 11:24
--- NOTE | 2016-05-27 14:12 | Physical Therapy Daily Note ---
PT Daily Note-Current Subjective Patient is in recliner and agrees to PT. Patient is very lethargic and receiving a unit of PRBC. Pain Numeric Pain Scale: 10-Worst Possible Pain Location: Left Location Body Site: Hip Pain Description: Acute Comment: FLACC Mental Status Patient Orientation: Confused Attachments: Oxygen, IV Transfers Functional [place] Measure 0=Not Assessed/NA 4=Minimal Assistance 1=Total Assistance 5=Supervision or Setup 2=Maximal Assistance 6=Modified [place] 3=Moderate Assistance 7=Complete IndependenceIRFPAI Quality Coding Scale 6 Independent with activity with or without an assistive device 5 Patient requires set up or clean up by helper. Patient completes activity by themselves 4 Supervision or touching assist (CGA). [place] provide cues , steadying assist 3 The helper provides less than half the effort to complete the activity 2 The helper provides more than half the effort to complete the activity 1 Dependent. The helper does all the effort to complete an activity 7 Patient refused to complete or attempt activity 9 The patient did not perform the activity before the current illness or injury 88 Not attempted due to Medical conditions or safety concerns Transfers (B, C, W/C) (FIM): 1 Scootin Rollin Supine to/from Sit: 1 Sit to/from Stand: 1 Bed to/from Chair: 1 Patient incontinent urine requiring dependent assist to cleanse, change and transfer patient to bed with bilateral LE elevated with pillows with heels free to prevent pressure. Weight Bearing Weight Bearing Restriction: Weight Bearing/Tolerated Location Restriction: L LE Exercises Supine Ex: Ankle pumps, Heel Slides Supine Reps: 10 Assessment Patient is very lethargic and continues to require dependent assist for all mobility at this time. PROM left LE to increase circulation and promote healing. PT Short Term Goals Short Term Goals Time Frame: Jun 01, 2016 Transfers (B,C,W/C) (FIM): 3 PT Care Home Goals Supervisor Twisting Department Goals PT Supervisor Twisting Department Goals Time Frame: Jun 15, 2016 Transfers (B,C,W/C) (FIM): 6 Gait (FIM): 4 Gait distance (FIM): 3=150 ft Distance: 150 Gait Level of Assist: 4 Gait Assistive Device: FWW PT Plan Treatment/Plan Treatment Plan: Continue Plan of Care Treatment Plan: Bed Mobility, Education, Functional Activity Mariano, Functional Strength, Gait, Safety, Therapeutic Exercise, Transfers Treatment Duration: Jun 15, 2016 Visits Per Week: 11-12 Time/GCodes Time In: 1330 Time Out: 1353 Total Billed Treatment Time: 23 Total Billed Treatment 1 visit FA x 2 23 min JOHN TINOCO PT May 27, 2016 14:12
--- NOTE | 2016-05-27 19:20 | Progress Note (SOAP) ---
Subjective Subjective/Events-last exam Fwup left hip fracture--S/P ORIF, post-op anemia--acute on chronic, GERD, COPD, Hypertension, History of CVA with left sided paralysis. Confused this AM. Objective Exam Vital Signs Date Time Temp Pulse Resp B/P Pulse Ox O2 Delivery O2 Flow Rate FiO2 05/27/16 16:33 98.0 75 127/54 05/27/16 16:00 97.3 69 16 115/51 97 Nasal Cannula 4.00 05/27/16 15:12 97 4.00 05/27/16 14:29 98.0 71 105/50 97 4.00 05/27/16 14:14 98.4 73 111/54 97 4.00 05/27/16 13:46 97.7 74 105/50 4.00 05/27/16 12:00 98.8 79 20 150/65 97 Nasal Cannula 4.00 05/27/16 11:49 98.1 81 152/71 4.00 05/27/16 11:34 97.7 81 140/59 4.00 05/27/16 10:10 94 4.00 05/27/16 09:00 95 Nasal Cannula 4.00 05/27/16 08:00 97.1 79 20 123/56 95 Nasal Cannula 4.00 05/27/16 06:59 96 4.00 05/27/16 06:59 96 05/27/16 04:30 97.9 89 16 147/65 93 Nasal Cannula 4.00 05/27/16 00:00 96.9 83 12 119/50 97 Nasal Cannula 4.00 05/26/16 20:55 Nasal Cannula 4.00 05/26/16 20:00 99.1 94 18 138/59 94 Nasal Cannula 4.00 05/26/16 19:38 95 4.00 I & O 05/27/16 07:00 Intake Total 2770 ml Output Total 250 ml Balance 2520 ml Capillary Refill : Less Than 3 SecondsLess Than 3 Seconds General Appearance: No Apparent Distress Neck: Supple Respiratory: Lungs Clear Cardiovascular: Regular Rate, Rhythm Systolic Murmur Gastrointestinal: normal bowel sounds non tender soft Extremity: Non Tender No Calf Tenderness No Pedal Edema Other (SCDs in place) Neurologic/Psychiatric: Alert Disoriented x3 Skin: Other (left hip dressing dry and in place) Results Lab Laboratory Tests 05/27/16 04:25: Anion Gap 9, BUN/Creatinine Ratio 12, Basophils # (Auto) 0.0, Basophils (%) ( Auto) 0, Blood Urea Nitrogen 9, Calcium Level 8.6, Carbon Dioxide Level 22, Chloride Level 103, Creatinine 0.74, Eosinophils # (Auto) 0.2, Eosinophils (%) ( Auto) 5, Estimat Glomerular Filtration Rate > 60, Glucose Level 114H, Hematocrit 22L, Hemoglobin 6.8*L, Lymphocytes # (Auto) 0.9L, Lymphocytes (%) ( Auto) 18, Mean Corpuscular Hemoglobin 25, Mean Corpuscular Hemoglobin Concent 31L, Mean Corpuscular Volume 81, Mean Platelet Volume 10.1, Monocytes # (Auto) 0.6, Monocytes (%) (Auto) 12, Neutrophils # (Auto) 3.3, Neutrophils (%) (Auto) 65, Platelet Count 169, Potassium Level 4.1, Red Blood Count 2.71L, Red Cell Distribution Width 17.4H, Sodium Level 134L, White Blood Count 5.0 Microbiology 05/24/16 MRSA Screen - Final, Complete MRSA not isolated Assessment/Plan Assessment/Plan Assess & Plan/Chief Complaint 1. Left Hip Fracture--S/P ORIF, Continue PT/OT, will need SNF for discharge 2. Post-op anemia--acute on chronic--transfuse 2u pRBCs today 3. COPD--on SVNS with duoneb and IS started 4. Hypertension--home meds restarted 5. Confusion--check UA 6. History of CVA with left sided paralysis--stable Clinical Quality Measures DVT/VTE Risk/Contraindication: Risk Factor Score Per Nursin RFS Level Per Nursing on Admit: 4+=Very High KELSIE PEARSON DO May 27, 2016 7:20 pm
[2016-05-27] MEDS: DIVALPROEX 250 MG DELAYED RELEASE (DEPAKOTE) TAB PO SCH (20:24)
[2016-05-27] MEDS: POLYETHYLENE GLYCOL 17 GM (MIRALAX) PACK PO SCH (20:25)
[2016-05-28] VITALS (8 sets, daily range): BP systolic 130–147; BP diastolic 61–76
[2016-05-28] MEDS: D5 1/2 NS 1000 ML IV SOLUTION 1,000 ML IV SCH ×2 (05:22→21:07)
[2016-05-28] MEDS: oxyCODONE/APAP 5/325MG (PERCOCET 5) TABLET PO PRN ×2 (05:59→21:08)
[2016-05-28] MEDS: ONDANSETRON 4 MG/2 ML (SDV) Z0FRAN IVP SCH ×3 (06:21→22:03)
[2016-05-28] MEDS: KCL 10 MEQ TAB (MICRO K) PO SCH (06:21)
[2016-05-28] MEDS: RT-ALBUTEROL/IPRATROPIUM 3 ML (DUONEB) VIAL INH SCH ×4 (06:50→22:00)
[2016-05-28 07:24] LABS: BASOPHILS % (AUTO) 0 % (0-10); EOSINOPHILS # (AUTO) 0.2 10^3/uL (0.0-0.3); EOSINOPHILS % (AUTO) 6 % (0-10); LYMPHOCYTES # (AUTO) 0.8 X 10^3 (1.0-4.0); LYMPHOCYTES % (AUTO) 18 % (12-44); MEAN CORPUSCULAR HEMOGLOBIN 26 PG (25-34); MEAN CORPUSCULAR HGB CONC 32 G/DL (32-36); MEAN CORPUSCULAR VOLUME 82 FL (80-99); MEAN PLATELET VOLUME 9.7 FL (7.4-10.4); MONOCYTES # (AUTO) 0.7 X 10^3 (0.0-1.0); MONOCYTES % (AUTO) 15 % (0-12); NEUTROPHILS # (AUTO) 2.6 X 10^3 (1.8-7.8); NEUTROPHILS % (AUTO) 60 % (42-75); PLATELET COUNT 191 10^3/uL (130-400); RED BLOOD COUNT 3.03 10^6/uL (4.35-5.85); RED CELL DISTRIBUTION WIDTH 17.6 % (10.0-14.5); WHITE BLOOD COUNT 4.2 10^3/uL (4.3-11.0)
[2016-05-28 07:44] LABS: ANION GAP 9 MMOL/L (5-14); BLOOD UREA NITROGEN 8 MG/DL (7-18); BUN/CREATININE RATIO 11; CALCIUM 8.7 MG/DL (8.5-10.1); CARBON DIOXIDE 23 MMOL/L (21-32); CHLORIDE 104 MMOL/L (98-107); CREATININE SERUM 0.71 MG/DL (0.60-1.30); GFR ESTIMATED > 60; GLUCOSE 110 MG/DL (70-105); POTASSIUM 4.1 MMOL/L (3.6-5.0); SODIUM 136 MMOL/L (135-145)
[2016-05-28] MEDS ORDERED: diphenhydrAMINE 25 MG TAB (BENADRYL) PO NR (08:30)
[2016-05-28] MEDS ORDERED: FUROSEMIDE 40 MG/4 ML INJ (LASIX) IVP NR (08:30)
[2016-05-28] MEDS ORDERED: ACETAMINOPHEN 500 MG TAB (TYLENOL) PO NR (08:30)
--- NOTE | 2016-05-28 08:31 | Progress Note (SOAP) ---
Subjective Subjective/Events-last exam Fwup left hip fracture--S/P ORIF, post-op anemia--acute on chronic, GERD, COPD, Hypertension, History of CVA with left sided paralysis. Less confused this AM. C/O some hip pain. Appetite appears poor. Objective Exam Vital Signs Date Time Temp Pulse Resp B/P Pulse Ox O2 Delivery O2 Flow Rate FiO2 05/28/16 04:00 96.8 77 18 147/67 98 Nasal Cannula 1.00 05/27/16 23:33 97.6 84 18 116/56 95 Nasal Cannula 4.00 05/27/16 21:00 Nasal Cannula 4.00 05/27/16 20:00 98.2 79 18 134/71 94 Nasal Cannula 4.00 05/27/16 19:16 97 4.00 05/27/16 16:33 98.0 75 127/54 05/27/16 16:00 97.3 69 16 115/51 97 Nasal Cannula 4.00 05/27/16 15:12 97 4.00 05/27/16 14:29 98.0 71 105/50 97 4.00 05/27/16 14:14 98.4 73 111/54 97 4.00 05/27/16 13:46 97.7 74 105/50 4.00 05/27/16 12:00 98.8 79 20 150/65 97 Nasal Cannula 4.00 05/27/16 11:49 98.1 81 152/71 4.00 05/27/16 11:34 97.7 81 140/59 4.00 05/27/16 10:10 94 4.00 05/27/16 09:00 95 Nasal Cannula 4.00 I & O 05/28/16 07:00 Intake Total 1820 ml Balance 1820 ml Capillary Refill : Less Than 3 SecondsLess Than 3 Seconds General Appearance: No Apparent Distress Respiratory: Lungs Clear Decreased Breath Sounds Cardiovascular: Regular Rate, Rhythm Systolic Murmur Gastrointestinal: normal bowel sounds non tender soft Extremity: Non Tender No Calf Tenderness No Pedal Edema Neurologic/Psychiatric: Alert Skin: Other (left hip dressing in place and dry) Results Lab Laboratory Tests 05/28/16 07:15: Anion Gap 9, BUN/Creatinine Ratio 11, Basophils # (Auto) 0.0, Basophils (%) ( Auto) 0, Blood Urea Nitrogen 8, Calcium Level 8.7, Carbon Dioxide Level 23, Chloride Level 104, Creatinine 0.71, Eosinophils # (Auto) 0.2, Eosinophils (%) ( Auto) 6, Estimat Glomerular Filtration Rate > 60, Glucose Level 110H, Hematocrit 25L, Hemoglobin 7.9L, Lymphocytes # (Auto) 0.8L, Lymphocytes (%) ( Auto) 18, Mean Corpuscular Hemoglobin 26, Mean Corpuscular Hemoglobin Concent 32 , Mean Corpuscular Volume 82, Mean Platelet Volume 9.7, Monocytes # (Auto) 0.7, Monocytes (%) (Auto) 15H, Neutrophils # (Auto) 2.6, Neutrophils (%) (Auto) 60, Platelet Count 191, Potassium Level 4.1, Red Blood Count 3.03L, Red Cell Distribution Width 17.6H, Sodium Level 136, White Blood Count 4.2L Microbiology 05/24/16 MRSA Screen - Final, Complete MRSA not isolated Assessment/Plan Assessment/Plan Assess & Plan/Chief Complaint 1. Left Hip Fracture--S/P ORIF, Continue PT/OT, SWING bed eval 2. Post-op anemia--acute on chronic--transfuse 1u pRBCs today 3. COPD--on SVNS with duoneb and IS started 4. Hypertension--home meds restarted 5. Confusion--improved this AM 6. History of CVA with left sided paralysis--stable Clinical Quality Measures DVT/VTE Risk/Contraindication: Risk Factor Score Per Nursin RFS Level Per Nursing on Admit: 4+=Very High KELSIE PEARSON DO May 28, 2016 08:31
[2016-05-28] MEDS: PANTOPRAZOLE 40 MG (PROTONIX) TAB PO SCH ×2 (08:40→21:08)
[2016-05-28] MEDS: LOSARTAN 50 MG (COZAAR) TAB PO SCH (08:40)
[2016-05-28] MEDS: FUROSEMIDE 20 MG (LASIX) TAB PO SCH (08:40)
[2016-05-28] MEDS: NEBIVOLOL 5 MG TAB (BYSTOLIC) PO SCH (08:40)
[2016-05-28] MEDS: SERTRALINE 100 MG (ZOLOFT) TAB PO SCH ×2 (08:40→21:08)
[2016-05-28] MEDS: ASPIRIN E.C. 81 MG (ECOTRIN) TAB PO SCH (08:40)
[2016-05-28] MEDS: busPIRone 5 MG (BUSPAR) TAB PO SCH ×3 (08:41→21:08)
[2016-05-28] MEDS: ENOXAPARIN 40 MG/0.4 ML (LOVENOX) SYR SC SCH (08:41)
[2016-05-28] MEDS: DOCUSATE SODIUM 100 MG (COLACE) CAP PO SCH ×2 (08:44→21:08)
[2016-05-28] MEDS ORDERED: NS IV 500 ML 500 ML ONE (09:03)
[2016-05-28] MEDS: ACETAMINOPHEN 325 MG TABLET/CAPLET (TYLENOL) PO PRN ×2 (09:12→22:03)
--- NOTE | 2016-05-28 11:36 | Occupational Ther Daily Note ---
OT Current Status-Daily Note Subjective Pt sleeping in bed, woke easily to name. Pt getting blood, per nrsg level is 7.9. Pt agreed to therapy. No c/o pain at this time. Mental Status/Objective Patient Orientation: Person Functional [place] Measure 0=Not Assessed/NA 4=Minimal Assistance 1=Total Assistance 5=Supervision or Setup 2=Maximal Assistance 6=Modified [place] 3=Moderate Assistance 7=Complete [place] Attachments: IV, Oxygen, Telemetry ADL-Treatment When given a cloth, pt able to wash face and hands by self. Other Treatment APROM with L UE, no pain during ROM. Pt demonstrated active muscle movement with shldr flex/ext. Pt fell asleep during ROM. After therapy, pt lying in bed sleeping. Call light/phone in reach. All needs met in room. OT Short Term Goals Short Term Goals Time Frame: Jun 01, 2016 Eating(FIM): 6 Grooming(FIM): 5 Bathing(FIM): 4 Bathing Location: L Arm, R Arm, L Upper Leg, R Upper Leg, Chest, Abdomen, Buttocks, Perineal Area Upper Body Dressing(FIM): 4 Lower Body Dressing(FIM): 3 Toileting(FIM): 3 Transfers (B,C,W/C) (FIM): 3 Toilet/Commode Transfer(FIM): 3 Tub Transfer(FIM): 0 Shower Transfer(FIM): 3 1=Demonstrate adherence to instructed precautions during ADL tasks. 2=Patient will verbalize/demonstrate understanding of assistive devices/ modifications for ADL. 3=Patient will improve strength/tolerance for activity to enable patient to perform ADL's. OT Produce Weigher Goals Produce Weigher Goals Time Frame: Jun 08, 2016 Eating (FIM): 7 Grooming(FIM): 6 Bathing(FIM): 5 Bathing Location: L Arm, R Arm, L Upper Leg, R Upper Leg, Chest, Abdomen, Buttocks, Perineal Area Upper Body Dressing(FIM): 5 Lower Body Dressing(FIM): 4 Toileting(FIM): 4 Transfers (B,C,W/C) (FIM): 4 Toilet/Commode Transfer(FIM): 4 Tub Transfer(FIM): 0 Shower Transfer(FIM): 4 1=Demonstrate adherence to instructed precautions during ADL tasks. 2=Patient will verbalize/demonstrate understanding of assistive devices/ modifications for ADL. 3=Patient will improve strength/tolerance for activity to enable patient to perform ADL's. OT Education/Plan Discharge Recommendations Plan/Recommendations: Continue POC Treatment Plan/Plan of Care Patient would benefit from OT for education, treatment and training to promote independence in ADL's, mobility, safety and/or upper extremity function for ADL' s. Plan of Care: ADL Retraining, Caregiver Training, Functional Mobility, Group Exercise/Act as Ind, UE Funct Exercise/Act Agreement: Yes Rehab Potential: Guarded Time/GCodes Start Time: 11:05 Stop Time: 11:18 Total Time Billed (hr/min): 13 Billed Treatment Time 1 visit-FA 1 (13 min) BILLIE LITTLE May 28, 2016 11:36
--- NOTE | 2016-05-28 11:54 | Physical Therapy Daily Note ---
PT Daily Note-Current Subjective Patient declined OOB at this time. PT educated patient on importance of OOB for prevention of pneumonia and DVT's, however, patient continued to decline. Pain Numeric Pain Scale: 10-Worst Possible Pain Location: Left Location Body Site: Hip Pain Description: Acute Mental Status Patient Orientation: Confused Attachments: Oxygen, IV Transfers Functional [place] Measure 0=Not Assessed/NA 4=Minimal Assistance 1=Total Assistance 5=Supervision or Setup 2=Maximal Assistance 6=Modified [place] 3=Moderate Assistance 7=Complete IndependenceIRFPAI Quality Coding Scale 6 Independent with activity with or without an assistive device 5 Patient requires set up or clean up by helper. Patient completes activity by themselves 4 Supervision or touching assist (CGA). [place] provide cues , steadying assist 3 The helper provides less than half the effort to complete the activity 2 The helper provides more than half the effort to complete the activity 1 Dependent. The helper does all the effort to complete an activity 7 Patient refused to complete or attempt activity 9 The patient did not perform the activity before the current illness or injury 88 Not attempted due to Medical conditions or safety concerns Transfers (B, C, W/C) (FIM): 1 Scootin dependent assist x 2 for up in bed to reposition bilateral LE's with pillows after treatment to prevent heel pressure. Weight Bearing Weight Bearing Restriction: Weight Bearing/Tolerated Location Restriction: L LE Exercises Supine Ex: Ankle pumps, Heel Slides, Straight leg raise Supine Reps: 15 (x 2 sets AAROM) Assessment Patient tolerated treatment well, however, continued to decline OOB. PT to increase activity as tolerated. PT Short Term Goals Short Term Goals Time Frame: Jun 01, 2016 Transfers (B,C,W/C) (FIM): 3 PT Intermediate Goals Intermediate Goals PT Intermediate Goals Time Frame: Jun 15, 2016 Transfers (B,C,W/C) (FIM): 6 Gait (FIM): 4 Gait distance (FIM): 3=150 ft Distance: 150 Gait Level of Assist: 4 Gait Assistive Device: FWW PT Plan Treatment/Plan Treatment Plan: Continue Plan of Care Treatment Plan: Bed Mobility, Education, Functional Activity Mariano, Functional Strength, Gait, Safety, Therapeutic Exercise, Transfers Treatment Duration: Jun 15, 2016 Visits Per Week: 11-12 Time/GCodes Time In: 1045 Time Out: 1055 Total Billed Treatment Time: 10 Total Billed Treatment 1 visit EX 10 min JOHN TINOCO PT May 28, 2016 11:54
--- NOTE | 2016-05-28 14:11 | Physical Therapy Daily Note ---
PT Daily Note-Current Subjective Patient in bed pre tx, agrees to PT. Patient will not rate pain in her right hip, just states that it is not too bad right now. Appearance Patient in recliner post tx with legs elevated and heel lift on pillow, has nurse call, phone, tray, all needs met. Family in the room. Mental Status Patient Orientation: Person, Place, Situation Transfers Functional [place] Measure 0=Not Assessed/NA 4=Minimal Assistance 1=Total Assistance 5=Supervision or Setup 2=Maximal Assistance 6=Modified [place] 3=Moderate Assistance 7=Complete IndependenceIRFPAI Quality Coding Scale 6 Independent with activity with or without an assistive device 5 Patient requires set up or clean up by helper. Patient completes activity by themselves 4 Supervision or touching assist (CGA). [place] provide cues , steadying assist 3 The helper provides less than half the effort to complete the activity 2 The helper provides more than half the effort to complete the activity 1 Dependent. The helper does all the effort to complete an activity 7 Patient refused to complete or attempt activity 9 The patient did not perform the activity before the current illness or injury 88 Not attempted due to Medical conditions or safety concerns Transfers (B, C, W/C) (FIM): 1 Scootin Rollin Supine to/from Sit: 2 Sit to/from Stand: 3 Bed to/from Chair: 1 Cues for safety and positioning with all mobility. Exercises Seated Therapy Exercises: Ankle pumps, Long arc quads, Hamstring Curls Seated Reps: 20 seated hip abduction exercise x20 Treatments bed mobility and transfers, functional strengthening, patient had soiled the bed and also needed to be cleaned and changed which was accomplished with assistance from a nurse aide Assessment Current Status: Fair Progress progressing slowly PT Short Term Goals Short Term Goals Time Frame: Jun 01, 2016 Transfers (B,C,W/C) (FIM): 3 PT Coppersmith Helper Goals Care Home Goals PT Care Home Goals Time Frame: Jun 15, 2016 Transfers (B,C,W/C) (FIM): 6 Gait (FIM): 4 Gait distance (FIM): 3=150 ft Distance: 150 Gait Level of Assist: 4 Gait Assistive Device: FWW PT Plan Problem List Problem List: Activity Tolerance, Functional Strength, Safety, Balance, Gait, Transfer, Bed Mobility, ROM Treatment/Plan Treatment Plan: Continue Plan of Care Treatment Plan: Bed Mobility, Education, Functional Activity Mariano, Functional Strength, Gait, Safety, Therapeutic Exercise, Transfers Treatment Duration: Jun 15, 2016 Visits Per Week: 11-12 Safety Risks/Education Patient Education: Transfer Techniques, Correct Positioning, Safety Issues Teaching Recipient: Patient Teaching Methods: Demonstration, Discussion Response to Teaching: Reinforcement Needed Time/GCodes Time In: 1345 Time Out: 1405 Total Billed Treatment Time: 20 Total Billed Treatment 1 visit FA 20 min LADARIUS DUEÑAS PT May 28, 2016 14:11
[2016-05-28] MEDS: POLYETHYLENE GLYCOL 17 GM (MIRALAX) PACK PO SCH (21:08)
[2016-05-28] MEDS: DIVALPROEX 250 MG DELAYED RELEASE (DEPAKOTE) TAB PO SCH (21:08)
[2016-05-29] VITALS: BP 123/58
[2016-05-29 05:30] LABS: BASOPHILS % (AUTO) 0 % (0-10); EOSINOPHILS # (AUTO) 0.3 10^3/uL (0.0-0.3); EOSINOPHILS % (AUTO) 6 % (0-10); LYMPHOCYTES # (AUTO) 1.1 X 10^3 (1.0-4.0); LYMPHOCYTES % (AUTO) 25 % (12-44); MEAN CORPUSCULAR HEMOGLOBIN 27 PG (25-34); MEAN CORPUSCULAR HGB CONC 33 G/DL (32-36); MEAN CORPUSCULAR VOLUME 82 FL (80-99); MEAN PLATELET VOLUME 9.7 FL (7.4-10.4); MONOCYTES # (AUTO) 0.8 X 10^3 (0.0-1.0); MONOCYTES % (AUTO) 17 % (0-12); NEUTROPHILS # (AUTO) 2.3 X 10^3 (1.8-7.8); NEUTROPHILS % (AUTO) 52 % (42-75); PLATELET COUNT 214 10^3/uL (130-400); RED BLOOD COUNT 3.39 10^6/uL (4.35-5.85); RED CELL DISTRIBUTION WIDTH 17.7 % (10.0-14.5); WHITE BLOOD COUNT 4.5 10^3/uL (4.3-11.0)
[2016-05-29 05:51] LABS: ALANINE AMINOTRANSFERASE 27 U/L (0-55); ALBUMIN 2.7 G/DL (3.2-4.5); ANION GAP 11 MMOL/L (5-14); ASPARTATE AMINO TRANSFERASE 18 U/L (5-34); BILIRUBIN,TOTAL 0.6 MG/DL (0.1-1.0); BLOOD UREA NITROGEN 9 MG/DL (7-18); BUN/CREATININE RATIO 12; CALCIUM 8.7 MG/DL (8.5-10.1); CARBON DIOXIDE 25 MMOL/L (21-32); CHLORIDE 102 MMOL/L (98-107); CREATININE SERUM 0.73 MG/DL (0.60-1.30); GFR ESTIMATED > 60; GLUCOSE 104 MG/DL (70-105); POTASSIUM 3.7 MMOL/L (3.6-5.0); SODIUM 138 MMOL/L (135-145); TOTAL PROTEIN 5.4 G/DL (6.4-8.2)
[2016-05-29] MEDS: ONDANSETRON 4 MG/2 ML (SDV) Z0FRAN IVP SCH ×3 (06:34→21:02)
[2016-05-29] MEDS: oxyCODONE/APAP 5/325MG (PERCOCET 5) TABLET PO PRN ×2 (06:35→23:38)
[2016-05-29] MEDS: KCL 10 MEQ TAB (MICRO K) PO SCH (06:35)
[2016-05-29] MEDS: RT-ALBUTEROL/IPRATROPIUM 3 ML (DUONEB) VIAL INH SCH ×4 (07:07→19:37)
[2016-05-29] MEDS: NEBIVOLOL 5 MG TAB (BYSTOLIC) PO SCH (07:54)
[2016-05-29] MEDS: SERTRALINE 100 MG (ZOLOFT) TAB PO SCH ×2 (07:55→20:58)
[2016-05-29] MEDS: FUROSEMIDE 20 MG (LASIX) TAB PO SCH (07:55)
[2016-05-29] MEDS: PANTOPRAZOLE 40 MG (PROTONIX) TAB PO SCH ×2 (07:55→20:58)
[2016-05-29] MEDS: DOCUSATE SODIUM 100 MG (COLACE) CAP PO SCH ×2 (07:55→20:58)
[2016-05-29] MEDS: LOSARTAN 50 MG (COZAAR) TAB PO SCH (07:55)
[2016-05-29] MEDS: D5 1/2 NS 1000 ML IV SOLUTION 1,000 ML IV SCH (07:55)
[2016-05-29] MEDS: ASPIRIN E.C. 81 MG (ECOTRIN) TAB PO SCH (07:55)
[2016-05-29] MEDS: busPIRone 5 MG (BUSPAR) TAB PO SCH ×3 (07:57→20:58)
[2016-05-29] MEDS: ENOXAPARIN 40 MG/0.4 ML (LOVENOX) SYR SC SCH (07:57)
[2016-05-29 08:00] VITALS: BP 106/51
--- NOTE | 2016-05-29 10:03 | Physical Therapy Daily Note ---
PT Daily Note-Current Subjective Agreeable to PT and to getting OOB. Pain Location: Left Location Body Site: Hip Comment: Doesnt rate pain or describe only says, "it's not too bad" Mental Status Patient Orientation: Person, Confused (slight), Place, Situation Attachments: Oxygen (3 l/min on throughout and post treatment), IV Transfers Functional [place] Measure 0=Not Assessed/NA 4=Minimal Assistance 1=Total Assistance 5=Supervision or Setup 2=Maximal Assistance 6=Modified [place] 3=Moderate Assistance 7=Complete IndependenceIRFPAI Quality Coding Scale 6 Independent with activity with or without an assistive device 5 Patient requires set up or clean up by helper. Patient completes activity by themselves 4 Supervision or touching assist (CGA). [place] provide cues , steadying assist 3 The helper provides less than half the effort to complete the activity 2 The helper provides more than half the effort to complete the activity 1 Dependent. The helper does all the effort to complete an activity 7 Patient refused to complete or attempt activity 9 The patient did not perform the activity before the current illness or injury 88 Not attempted due to Medical conditions or safety concerns Transfers (B, C, W/C) (FIM): 1 Scootin Rollin Supine to/from Sit: 2 Sit to/from Stand: 2 Bed to/from Chair: 1 skilled cues for sequencing and task completing with sup to sit EOB; pt needs full assist to move legs and trunk but able to reach and pull across her body with her right arm. Initially needs assist to maintain EOB balance but able to support herself after a few minutes. Sit to stand with max of 2 assist with FWW and max assist to move left leg to normalize JANE width. Pt unable to move leg herself. Pt then stood with this therapist, dance style, to SPT bed to chair. Max to dep for transfer needing assist to move the left LE and knee buckling on the right at times. Pt up in chair post treatment with nurse aide present to clean her up. Pt had been incont of urine in the bed. Weight Bearing Weight Bearing Restriction: Weight Bearing/Tolerated Location Restriction: L LE Assessment Current Status: Fair Progress Cooperative and alert today, seems to understand the purpose and how to transfer but cannot follow through with active muscle movement. Continues to be max to dep with mobility at this time; however, does assist with sup to sit and sit to stand. PT Short Term Goals Short Term Goals Time Frame: Jun 01, 2016 Transfers (B,C,W/C) (FIM): 3 PT Respiratory Clinician Goals Respiratory Clinician Goals PT Group Home Goals Time Frame: Jun 15, 2016 Transfers (B,C,W/C) (FIM): 6 Gait (FIM): 4 Gait distance (FIM): 3=150 ft Distance: 150 Gait Level of Assist: 4 Gait Assistive Device: FWW PT Plan Problem List Problem List: Activity Tolerance, Functional Strength, Safety, Gait, Transfer, Bed Mobility Treatment/Plan Treatment Plan: Continue Plan of Care Treatment Plan: Bed Mobility, Education, Functional Activity Mariano, Functional Strength, Gait, Safety, Therapeutic Exercise, Transfers Treatment Duration: Jun 15, 2016 Visits Per Week: 11-12 Safety Risks/Education Patient Education: Transfer Techniques, Safety Issues Teaching Recipient: Patient Teaching Methods: Demonstration, Discussion Response to Teaching: Reinforcement Needed Time/GCodes Time In: 931 Time Out: 958 Total Billed Treatment Time: 27 Total Billed Treatment visit FA 27 BILLIE REDDY PT May 29, 2016 10:03
--- NOTE | 2016-05-29 11:51 | Occupational Ther Daily Note ---
OT Current Status-Daily Note Subjective Pt alert, sitting up in bed. Pt has lunch in front of her. Pt c/o pain in lower back, 05/24. Mental Status/Objective Patient Orientation: Unable to Assess Functional [place] Measure 0=Not Assessed/NA 4=Minimal Assistance 1=Total Assistance 5=Supervision or Setup 2=Maximal Assistance 6=Modified [place] 3=Moderate Assistance 7=Complete [place] ADL-Treatment Pt unable to unwrap napkin to get to feeding utensils. Pt is able to use R hand to manipulated utensils to feed self. Other Treatment Pt able to actively move L UE with compensatory movement of upper torso to lift 90 degrees. After therapy, pt is sitting in recliner with call light/phone in reach. All needs met in room. OT Short Term Goals Short Term Goals Time Frame: Jun 01, 2016 Eating(FIM): 6 Grooming(FIM): 5 Bathing(FIM): 4 Bathing Location: L Arm, R Arm, L Upper Leg, R Upper Leg, Chest, Abdomen, Buttocks, Perineal Area Upper Body Dressing(FIM): 4 Lower Body Dressing(FIM): 3 Toileting(FIM): 3 Transfers (B,C,W/C) (FIM): 3 Toilet/Commode Transfer(FIM): 3 Tub Transfer(FIM): 0 Shower Transfer(FIM): 3 1=Demonstrate adherence to instructed precautions during ADL tasks. 2=Patient will verbalize/demonstrate understanding of assistive devices/ modifications for ADL. 3=Patient will improve strength/tolerance for activity to enable patient to perform ADL's. OT Clinic Physician Goals [facility] Goals Time Frame: Jun 08, 2016 Eating (FIM): 7 Grooming(FIM): 6 Bathing(FIM): 5 Bathing Location: L Arm, R Arm, L Upper Leg, R Upper Leg, Chest, Abdomen, Buttocks, Perineal Area Upper Body Dressing(FIM): 5 Lower Body Dressing(FIM): 4 Toileting(FIM): 4 Transfers (B,C,W/C) (FIM): 4 Toilet/Commode Transfer(FIM): 4 Tub Transfer(FIM): 0 Shower Transfer(FIM): 4 1=Demonstrate adherence to instructed precautions during ADL tasks. 2=Patient will verbalize/demonstrate understanding of assistive devices/ modifications for ADL. 3=Patient will improve strength/tolerance for activity to enable patient to perform ADL's. OT Education/Plan Discharge Recommendations Plan/Recommendations: Continue POC Treatment Plan/Plan of Care Patient would benefit from OT for education, treatment and training to promote independence in ADL's, mobility, safety and/or upper extremity function for ADL' s. Plan of Care: ADL Retraining, Caregiver Training, Functional Mobility, Group Exercise/Act as Ind, UE Funct Exercise/Act Agreement: Yes Rehab Potential: Guarded Time/GCodes Start Time: 11:45 Stop Time: 12:00 Total Time Billed (hr/min): 15 Billed Treatment Time 1 visit-FA 1 (15 min) BILLIE LITTLE May 29, 2016 11:51
--- NOTE | 2016-05-29 15:12 | Physical Therapy Daily Note ---
PT Daily Note-Current Subjective Patient in recliner pre tx, agrees to PT, states "my pain is not that bad". Appearance Patient in bed post tx with nurse call, phone, tray, bed alarm on, all needs met. Patient was wet and had to change her gown. Mental Status Patient Orientation: Person, Place, Situation Attachments: Oxygen, IV Transfers Functional [place] Measure 0=Not Assessed/NA 4=Minimal Assistance 1=Total Assistance 5=Supervision or Setup 2=Maximal Assistance 6=Modified [place] 3=Moderate Assistance 7=Complete IndependenceIRFPAI Quality Coding Scale 6 Independent with activity with or without an assistive device 5 Patient requires set up or clean up by helper. Patient completes activity by themselves 4 Supervision or touching assist (CGA). [place] provide cues , steadying assist 3 The helper provides less than half the effort to complete the activity 2 The helper provides more than half the effort to complete the activity 1 Dependent. The helper does all the effort to complete an activity 7 Patient refused to complete or attempt activity 9 The patient did not perform the activity before the current illness or injury 88 Not attempted due to Medical conditions or safety concerns Transfers (B, C, W/C) (FIM): 2 Scootin Rollin Supine to/from Sit: 2 Sit to/from Stand: 2 Bed to/from Chair: 2 cues for safety and hand placement, patient very anxious, resists movement Exercises Supine Ex: Ankle pumps, Quad Set, Heel Slides, Short Arc Quads Supine Reps: 10 Treatments bed mobility and transfers, functional strengthening Assessment Current Status: Poor Progress no change in mobility PT Short Term Goals Short Term Goals Time Frame: Jun 01, 2016 Transfers (B,C,W/C) (FIM): 3 PT Nursing Home Goals Cat And Dog Bather Goals PT Cat And Dog Bather Goals Time Frame: Jun 15, 2016 Transfers (B,C,W/C) (FIM): 6 Gait (FIM): 4 Gait distance (FIM): 3=150 ft Distance: 150 Gait Level of Assist: 4 Gait Assistive Device: FWW PT Plan Problem List Problem List: Activity Tolerance, Functional Strength, Safety, Balance, Gait, Transfer, Bed Mobility, ROM Treatment/Plan Treatment Plan: Continue Plan of Care Treatment Plan: Bed Mobility, Education, Functional Activity Mariano, Functional Strength, Gait, Safety, Therapeutic Exercise, Transfers Treatment Duration: Jun 15, 2016 Visits Per Week: 11-12 Safety Risks/Education Patient Education: Transfer Techniques, Correct Positioning, Safety Issues Teaching Recipient: Patient Teaching Methods: Demonstration, Discussion Response to Teaching: Reinforcement Needed Time/GCodes Time In: 1455 Time Out: 1510 Total Billed Treatment Time: 15 Total Billed Treatment 1 visit FA 15 min LADARIUS DUEÑAS PT May 29, 2016 15:12
[2016-05-29 16:15] VITALS: BP 146/64
--- NOTE | 2016-05-29 18:29 | Progress Note (SOAP) ---
Subjective Subjective/Events-last exam Fwup left hip fracture--S/P ORIF, post-op anemia--acute on chronic, GERD, COPD, Hypertension, History of CVA with left sided paralysis. Denies pain. Objective Exam Vital Signs Date Time Temp Pulse Resp B/P Pulse Ox O2 Delivery O2 Flow Rate FiO2 05/29/16 16:15 98.5 81 24 146/64 94 Nasal Cannula 3.00 05/29/16 14:11 95 3.00 05/29/16 10:08 96 3.00 05/29/16 09:00 96 Nasal Cannula 3.00 05/29/16 08:00 97.7 68 20 106/51 97 Nasal Cannula 3.00 05/29/16 07:08 94 3.00 05/29/16 00:00 97.4 69 18 123/58 96 Nasal Cannula 3.00 05/28/16 21:00 Nasal Cannula 3.00 05/28/16 19:10 98.2 83 20 147/68 94 Nasal Cannula 3.00 I & O 05/29/16 07:00 Intake Total 2460 ml Balance 2460 ml Capillary Refill : Less Than 3 SecondsLess Than 3 Seconds General Appearance: No Apparent Distress Neck: Supple Cardiovascular: Regular Rate, Rhythm Systolic Murmur Gastrointestinal: normal bowel sounds non tender soft Extremity: Non Tender No Calf Tenderness No Pedal Edema Neurologic/Psychiatric: Alert Skin: Other (left hip dressing dry and in place) Results Lab Laboratory Tests 05/29/16 04:30: Alanine Aminotransferase (ALT/SGPT) 27, Albumin 2.7L, Alkaline Phosphatase 107, Anion Gap 11, Aspartate Amino Transf (AST/SGOT) 18, BUN/Creatinine Ratio 12, Basophils # (Auto) 0.0, Basophils (%) (Auto) 0, Blood Urea Nitrogen 9, Calcium Level 8.7, Carbon Dioxide Level 25, Chloride Level 102, Creatinine 0.73, Eosinophils # (Auto) 0.3, Eosinophils (%) (Auto) 6, Estimat Glomerular Filtration Rate > 60, Glucose Level 104, Hematocrit 28L, Hemoglobin 9.0L, Lymphocytes # (Auto) 1.1, Lymphocytes (%) (Auto) 25, Mean Corpuscular Hemoglobin 27, Mean Corpuscular Hemoglobin Concent 33, Mean Corpuscular Volume 82, Mean Platelet Volume 9.7, Monocytes # (Auto) 0.8, Monocytes (%) (Auto) 17H, Neutrophils # (Auto) 2.3, Neutrophils (%) (Auto) 52, Platelet Count 214, Potassium Level 3.7, Red Blood Count 3.39L, Red Cell Distribution Width 17.7H, Sodium Level 138, Total Bilirubin 0.6, Total Protein 5.4L, White Blood Count 4.5 05/29/16 16:20: Lab Scanned Report Transfusion Reaction Form Microbiology 05/24/16 MRSA Screen - Final, Complete MRSA not isolated Assessment/Plan Assessment/Plan Assess & Plan/Chief Complaint 1. Left Hip Fracture--S/P ORIF, Continue PT/OT, back to SNF 2. Post-op anemia--acute on chronic--improved after transfusion 3. COPD--on SVNS with duoneb and IS started 4. Hypertension--home meds restarted 5. Confusion--improved this AM 6. History of CVA with left sided paralysis--stable Clinical Quality Measures DVT/VTE Risk/Contraindication: Risk Factor Score Per Nursin RFS Level Per Nursing on Admit: 4+=Very High KELSIE PEARSON DO May 29, 2016 6:29 pm
[2016-05-29] MEDS: DIVALPROEX 250 MG DELAYED RELEASE (DEPAKOTE) TAB PO SCH (20:58)
[2016-05-29] MEDS: POLYETHYLENE GLYCOL 17 GM (MIRALAX) PACK PO SCH (20:59)
[2016-05-30 01:30] VITALS: BP 148/57
[2016-05-30] MEDS: oxyCODONE/APAP 5/325MG (PERCOCET 5) TABLET PO PRN ×3 (05:31→20:09)
[2016-05-30] MEDS: ONDANSETRON 4 MG/2 ML (SDV) Z0FRAN IVP SCH ×3 (05:31→21:07)
[2016-05-30] MEDS: D5 1/2 NS 1000 ML IV SOLUTION 1,000 ML IV SCH (05:31)
[2016-05-30] MEDS: KCL 10 MEQ TAB (MICRO K) PO SCH (05:31)
[2016-05-30] MEDS: RT-ALBUTEROL/IPRATROPIUM 3 ML (DUONEB) VIAL INH SCH ×4 (06:53→19:23)
[2016-05-30 07:14] LABS: BASOPHILS % (AUTO) 1 % (0-10); EOSINOPHILS # (AUTO) 0.2 10^3/uL (0.0-0.3); EOSINOPHILS % (AUTO) 5 % (0-10); LYMPHOCYTES # (AUTO) 0.9 X 10^3 (1.0-4.0); LYMPHOCYTES % (AUTO) 20 % (12-44); MEAN CORPUSCULAR HEMOGLOBIN 26 PG (25-34); MEAN CORPUSCULAR HGB CONC 32 G/DL (32-36); MEAN CORPUSCULAR VOLUME 82 FL (80-99); MEAN PLATELET VOLUME 9.5 FL (7.4-10.4); MONOCYTES # (AUTO) 0.8 X 10^3 (0.0-1.0); MONOCYTES % (AUTO) 17 % (0-12); NEUTROPHILS # (AUTO) 2.6 X 10^3 (1.8-7.8); NEUTROPHILS % (AUTO) 58 % (42-75); PLATELET COUNT 244 10^3/uL (130-400); RED BLOOD COUNT 3.27 10^6/uL (4.35-5.85); RED CELL DISTRIBUTION WIDTH 17.7 % (10.0-14.5); WHITE BLOOD COUNT 4.4 10^3/uL (4.3-11.0)
[2016-05-30 07:48] LABS: ALANINE AMINOTRANSFERASE 19 U/L (0-55); ALBUMIN 2.6 G/DL (3.2-4.5); ANION GAP 9 MMOL/L (5-14); ASPARTATE AMINO TRANSFERASE 18 U/L (5-34); BILIRUBIN,TOTAL 0.5 MG/DL (0.1-1.0); BLOOD UREA NITROGEN 11 MG/DL (7-18); BUN/CREATININE RATIO 15; CALCIUM 8.9 MG/DL (8.5-10.1); CARBON DIOXIDE 27 MMOL/L (21-32); CHLORIDE 100 MMOL/L (98-107); CREATININE SERUM 0.71 MG/DL (0.60-1.30); GFR ESTIMATED > 60; GLUCOSE 107 MG/DL (70-105); POTASSIUM 3.8 MMOL/L (3.6-5.0); SODIUM 136 MMOL/L (135-145); TOTAL PROTEIN 5.2 G/DL (6.4-8.2)
[2016-05-30 08:39] VITALS: BP 146/66
[2016-05-30] MEDS: DOCUSATE SODIUM 100 MG (COLACE) CAP PO SCH ×2 (09:00→20:09)
[2016-05-30] MEDS: ENOXAPARIN 40 MG/0.4 ML (LOVENOX) SYR SC SCH (09:29)
[2016-05-30] MEDS: NEBIVOLOL 5 MG TAB (BYSTOLIC) PO SCH (09:29)
[2016-05-30] MEDS: ASPIRIN E.C. 81 MG (ECOTRIN) TAB PO SCH (09:30)
[2016-05-30] MEDS: PANTOPRAZOLE 40 MG (PROTONIX) TAB PO SCH ×2 (09:30→20:09)
[2016-05-30] MEDS: FUROSEMIDE 20 MG (LASIX) TAB PO SCH (09:30)
[2016-05-30] MEDS: SERTRALINE 100 MG (ZOLOFT) TAB PO SCH ×2 (09:30→20:09)
[2016-05-30] MEDS: LOSARTAN 50 MG (COZAAR) TAB PO SCH (09:30)
[2016-05-30] MEDS: busPIRone 5 MG (BUSPAR) TAB PO SCH ×3 (09:30→20:09)
--- NOTE | 2016-05-30 11:59 | Physical Therapy Daily Note ---
PT Daily Note-Current Subjective Patient is up in recliner and agrees to exercises. Pain Numeric Pain Scale: 5-Moderate Pain Location: Left Location Body Site: Hip Pain Description: Acute Mental Status Patient Orientation: Person, Time, Situation Attachments: Oxygen, IV Transfers Functional [place] Measure 0=Not Assessed/NA 4=Minimal Assistance 1=Total Assistance 5=Supervision or Setup 2=Maximal Assistance 6=Modified [place] 3=Moderate Assistance 7=Complete IndependenceIRFPAI Quality Coding Scale 6 Independent with activity with or without an assistive device 5 Patient requires set up or clean up by helper. Patient completes activity by themselves 4 Supervision or touching assist (CGA). [place] provide cues , steadying assist 3 The helper provides less than half the effort to complete the activity 2 The helper provides more than half the effort to complete the activity 1 Dependent. The helper does all the effort to complete an activity 7 Patient refused to complete or attempt activity 9 The patient did not perform the activity before the current illness or injury 88 Not attempted due to Medical conditions or safety concerns Exercises Seated Therapy Exercises: Ankle pumps, Long arc quads, Hip flexion Seated Reps: 25 (2 sets AAROM left LE) Assessment Patient tolerated minimal activity and has call light, tray and lunch in situ. Plan to dismiss to NH on this date, PT Short Term Goals Short Term Goals Time Frame: Jun 01, 2016 Transfers (B,C,W/C) (FIM): 3 PT Halfway Goals Childcare Aide Goals PT Childcare Aide Goals Time Frame: Jun 15, 2016 Transfers (B,C,W/C) (FIM): 6 Gait (FIM): 4 Gait distance (FIM): 3=150 ft Distance: 150 Gait Level of Assist: 4 Gait Assistive Device: FWW PT Plan Treatment/Plan Treatment Plan: Continue Plan of Care Treatment Plan: Bed Mobility, Education, Functional Activity Mariano, Functional Strength, Gait, Safety, Therapeutic Exercise, Transfers Treatment Duration: Jun 15, 2016 Visits Per Week: 11-12 Time/GCodes Time In: 1135 Time Out: 1145 Total Billed Treatment Time: 10 Total Billed Treatment 1 visit EX 10 min JOHN TINOCO PT May 30, 2016 11:59
--- NOTE | 2016-05-30 12:29 | Progress Note (SOAP) ---
Subjective Subjective/Events-last exam Fwup left hip fracture--S/P ORIF, post-op anemia--acute on chronic, GERD, COPD, Hypertension, History of CVA with left sided paralysis. Not eating well. Objective Exam Vital Signs Date Time Temp Pulse Resp B/P Pulse Ox O2 Delivery O2 Flow Rate FiO2 05/30/16 10:41 90 2.00 05/30/16 08:39 98.6 86 20 146/66 96 Nasal Cannula 2.00 05/30/16 06:53 93 2.00 05/30/16 06:53 89 05/30/16 01:30 98.8 78 20 148/57 93 Nasal Cannula 2.00 05/29/16 20:55 Nasal Cannula 3.00 05/29/16 19:37 95 3.00 05/29/16 16:15 98.5 81 24 146/64 94 Nasal Cannula 3.00 05/29/16 14:11 95 3.00 I & O 05/30/16 07:00 Intake Total 3300 ml Output Total 300 ml Balance 3000 ml Capillary Refill : Less Than 3 SecondsLess Than 3 Seconds General Appearance: No Apparent Distress Respiratory: Lungs Clear Cardiovascular: Regular Rate, Rhythm Systolic Murmur Gastrointestinal: normal bowel sounds non tender soft Extremity: Non Tender No Calf Tenderness No Pedal Edema Neurologic/Psychiatric: Alert Oriented x3 Skin: Other (left hip with dressing in place and dry) Results Lab Laboratory Tests 05/29/16 16:20: Lab Scanned Report Transfusion Reaction Form 05/30/16 06:40: Alanine Aminotransferase (ALT/SGPT) 19, Albumin 2.6L, Alkaline Phosphatase 90, Anion Gap 9, Aspartate Amino Transf (AST/SGOT) 18, BUN/Creatinine Ratio 15, Basophils # (Auto) 0.0, Basophils (%) (Auto) 1, Blood Urea Nitrogen 11, Calcium Level 8.9, Carbon Dioxide Level 27, Chloride Level 100, Creatinine 0.71, Eosinophils # (Auto) 0.2, Eosinophils (%) (Auto) 5, Estimat Glomerular Filtration Rate > 60, Glucose Level 107H, Hematocrit 27L, Hemoglobin 8.6L, Lymphocytes # (Auto) 0.9L, Lymphocytes (%) (Auto) 20, Mean Corpuscular Hemoglobin 26, Mean Corpuscular Hemoglobin Concent 32, Mean Corpuscular Volume 82, Mean Platelet Volume 9.5, Monocytes # (Auto) 0.8, Monocytes (%) (Auto) 17H, Neutrophils # (Auto) 2.6, Neutrophils (%) (Auto) 58, Platelet Count 244, Potassium Level 3.8, Red Blood Count 3.27L, Red Cell Distribution Width 17.7H, Sodium Level 136, Total Bilirubin 0.5, Total Protein 5.2L, White Blood Count 4.4 Microbiology 05/24/16 MRSA Screen - Final, Complete MRSA not isolated Assessment/Plan Assessment/Plan Assess & Plan/Chief Complaint 1. Left Hip Fracture--S/P ORIF, Continue PT/OT, back to SNF tomorrow AM 2. Post-op anemia--acute on chronic--improved after transfusion but will recheck in AM 3. COPD--on SVNS with duoneb and IS started 4. Hypertension--home meds restarted 5. Confusion--improved this AM 6. History of CVA with left sided paralysis--stable Clinical Quality Measures DVT/VTE Risk/Contraindication: Risk Factor Score Per Nursin RFS Level Per Nursing on Admit: 4+=Very High KELSIE PEARSON DO May 30, 2016 12:29
--- NOTE | 2016-05-30 13:48 | Physical Therapy Daily Note ---
PT Daily Note-Current Subjective Patient requested to remain up in recliner and agrees to exercises. Pain Numeric Pain Scale: 5-Moderate Pain Location: Left Location Body Site: Hip Pain Description: Acute Mental Status Patient Orientation: Person, Time, Situation Attachments: Oxygen, IV Transfers Functional [place] Measure 0=Not Assessed/NA 4=Minimal Assistance 1=Total Assistance 5=Supervision or Setup 2=Maximal Assistance 6=Modified [place] 3=Moderate Assistance 7=Complete IndependenceIRFPAI Quality Coding Scale 6 Independent with activity with or without an assistive device 5 Patient requires set up or clean up by helper. Patient completes activity by themselves 4 Supervision or touching assist (CGA). [place] provide cues , steadying assist 3 The helper provides less than half the effort to complete the activity 2 The helper provides more than half the effort to complete the activity 1 Dependent. The helper does all the effort to complete an activity 7 Patient refused to complete or attempt activity 9 The patient did not perform the activity before the current illness or injury 88 Not attempted due to Medical conditions or safety concerns Exercises Seated Therapy Exercises: Ankle pumps, Long arc quads, Hip flexion Seated Reps: 15 (3 sets AAROM left LE) Assessment Patient fatigues very quickly with minimal activity. PT to increase activity as tolerated. PT Short Term Goals Short Term Goals Time Frame: Jun 01, 2016 Transfers (B,C,W/C) (FIM): 3 PT Oven Dumper Goals [facility] Goals PT [facility] Goals Time Frame: Jun 15, 2016 Transfers (B,C,W/C) (FIM): 6 Gait (FIM): 4 Gait distance (FIM): 3=150 ft Distance: 150 Gait Level of Assist: 4 Gait Assistive Device: FWW PT Plan Treatment/Plan Treatment Plan: Continue Plan of Care Treatment Plan: Bed Mobility, Education, Functional Activity Mariano, Functional Strength, Gait, Safety, Therapeutic Exercise, Transfers Treatment Duration: Jun 15, 2016 Visits Per Week: 11-12 Time/GCodes Time In: 1325 Time Out: 1340 Total Billed Treatment Time: 15 Total Billed Treatment 1 visit EX 15 min JOHN TINOCO PT May 30, 2016 13:48
[2016-05-30 15:55] VITALS: BP 135/71
[2016-05-30] MEDS: DIVALPROEX 250 MG DELAYED RELEASE (DEPAKOTE) TAB PO SCH (20:09)
[2016-05-30] MEDS: POLYETHYLENE GLYCOL 17 GM (MIRALAX) PACK PO SCH (20:10)
[2016-05-31] VITALS: BP 153/65
[2016-05-31] MEDS: KCL 10 MEQ TAB (MICRO K) PO SCH (05:44)
[2016-05-31] MEDS: oxyCODONE/APAP 5/325MG (PERCOCET 5) TABLET PO PRN ×2 (05:44→11:44)
[2016-05-31] MEDS: ONDANSETRON 4 MG/2 ML (SDV) Z0FRAN IVP SCH (05:44)
[2016-05-31 06:31] LABS: BASOPHILS % (AUTO) 0 % (0-10); EOSINOPHILS # (AUTO) 0.3 10^3/uL (0.0-0.3); EOSINOPHILS % (AUTO) 6 % (0-10); LYMPHOCYTES # (AUTO) 0.9 X 10^3 (1.0-4.0); LYMPHOCYTES % (AUTO) 19 % (12-44); MEAN CORPUSCULAR HEMOGLOBIN 26 PG (25-34); MEAN CORPUSCULAR HGB CONC 32 G/DL (32-36); MEAN CORPUSCULAR VOLUME 83 FL (80-99); MEAN PLATELET VOLUME 9.3 FL (7.4-10.4); MONOCYTES # (AUTO) 0.8 X 10^3 (0.0-1.0); MONOCYTES % (AUTO) 16 % (0-12); NEUTROPHILS # (AUTO) 2.9 X 10^3 (1.8-7.8); NEUTROPHILS % (AUTO) 60 % (42-75); PLATELET COUNT 281 10^3/uL (130-400); RED BLOOD COUNT 3.51 10^6/uL (4.35-5.85); RED CELL DISTRIBUTION WIDTH 18.3 % (10.0-14.5); WHITE BLOOD COUNT 4.8 10^3/uL (4.3-11.0)
[2016-05-31] MEDS: RT-ALBUTEROL/IPRATROPIUM 3 ML (DUONEB) VIAL INH SCH (06:58)
--- NOTE | 2016-05-31 07:03 | Occupational Ther Daily Note ---
OT Current Status-Daily Note Subjective Late entry for 05/30/16 Pt alert, lying in bed. Pt declined therapy. BRANDON encouraged pt to sit on EOB, pt still declined. Pt's had been incontinent and bed was wet. Pt then agreed to get out of bed and sit in chair. Mental Status/Objective Functional [place] Measure 0=Not Assessed/NA 4=Minimal Assistance 1=Total Assistance 5=Supervision or Setup 2=Maximal Assistance 6=Modified [place] 3=Moderate Assistance 7=Complete [place] ADL-Treatment Pt mod A to go from supine to sitting with HOB elevated. Pt able to use arms to push self and moved R leg by self, assist to move L LE. Sat EOB with close SBA. Max A for stand pivot transfer from EOB to chair transferring toward R side. PT took over care. All needs met in room. OT Short Term Goals Short Term Goals Time Frame: Jun 01, 2016 Eating(FIM): 6 Grooming(FIM): 5 Bathing(FIM): 4 Bathing Location: L Arm, R Arm, L Upper Leg, R Upper Leg, Chest, Abdomen, Buttocks, Perineal Area Upper Body Dressing(FIM): 4 Lower Body Dressing(FIM): 3 Toileting(FIM): 3 Transfers (B,C,W/C) (FIM): 3 Toilet/Commode Transfer(FIM): 3 Tub Transfer(FIM): 0 Shower Transfer(FIM): 3 1=Demonstrate adherence to instructed precautions during ADL tasks. 2=Patient will verbalize/demonstrate understanding of assistive devices/ modifications for ADL. 3=Patient will improve strength/tolerance for activity to enable patient to perform ADL's. OT Longterm Goals Curriculum Manager Goals Time Frame: Jun 08, 2016 Eating (FIM): 7 Grooming(FIM): 6 Bathing(FIM): 5 Bathing Location: L Arm, R Arm, L Upper Leg, R Upper Leg, Chest, Abdomen, Buttocks, Perineal Area Upper Body Dressing(FIM): 5 Lower Body Dressing(FIM): 4 Toileting(FIM): 4 Transfers (B,C,W/C) (FIM): 4 Toilet/Commode Transfer(FIM): 4 Tub Transfer(FIM): 0 Shower Transfer(FIM): 4 1=Demonstrate adherence to instructed precautions during ADL tasks. 2=Patient will verbalize/demonstrate understanding of assistive devices/ modifications for ADL. 3=Patient will improve strength/tolerance for activity to enable patient to perform ADL's. OT Education/Plan Discharge Recommendations Plan/Recommendations: Continue POC Treatment Plan/Plan of Care Patient would benefit from OT for education, treatment and training to promote independence in ADL's, mobility, safety and/or upper extremity function for ADL' s. Plan of Care: ADL Retraining, Caregiver Training, Functional Mobility, Group Exercise/Act as Ind, UE Funct Exercise/Act Agreement: Yes Rehab Potential: Guarded Time/GCodes Start Time: 08:55 Stop Time: 09:05 Total Time Billed (hr/min): 10 Billed Treatment Time 1 visit-FA 1 (10 min) late entry for 05/30/16 BILLIE LITTLE May 31, 2016 07:03
[2016-05-31 08:00] VITALS: BP 111/47
[2016-05-31] MEDS: LOSARTAN 50 MG (COZAAR) TAB PO SCH (09:28)
[2016-05-31] MEDS: SERTRALINE 100 MG (ZOLOFT) TAB PO SCH (09:28)
[2016-05-31] MEDS: FUROSEMIDE 20 MG (LASIX) TAB PO SCH (09:28)
[2016-05-31] MEDS: ENOXAPARIN 40 MG/0.4 ML (LOVENOX) SYR SC SCH (09:28)
[2016-05-31] MEDS: DOCUSATE SODIUM 100 MG (COLACE) CAP PO SCH (09:28)
[2016-05-31] MEDS: ASPIRIN E.C. 81 MG (ECOTRIN) TAB PO SCH (09:29)
[2016-05-31] MEDS: busPIRone 5 MG (BUSPAR) TAB PO SCH (09:29)
[2016-05-31] MEDS: NEBIVOLOL 5 MG TAB (BYSTOLIC) PO SCH (09:29)
[2016-05-31] MEDS: PANTOPRAZOLE 40 MG (PROTONIX) TAB PO SCH (09:31)
[2016-05-31 09:34] VITALS: BP_SYST 115; BP_SYST 122; BP_DIAS 56; BP_DIAS 57
[2016-05-31] MEDS ORDERED: DOCU100C37 PO (10:24)
[2016-05-31] MEDS ORDERED: HYDR-3812 PO (10:24)
[2016-05-31] MEDS ORDERED: BUSP5TAB59 PO (10:24)
[2016-05-31] MEDS ORDERED: ACET325T49 PO (10:24)
[2016-05-31] MEDS ORDERED: PANT40TA3 PO (10:24)
--- NOTE | 2016-05-31 10:28 | Discharge Inst-Skilled Nursing ---
Discharge Inst-Skilled NF Patient Instructions Patient Problems: Left hip fracture COPD History of CVA with left sided hemiplegia Acute on Chronic Anemia Consult/Follow Up/Orders Follow Up Appt.: Fwup with me in 2weeks Skilled NF Admit to: [facility] (SNF) I certify that SNF services are required to be given on an inpatient basis because of the above named patient's need for fci care on a continuing basis for the conditions(s) for which he/she was receiving inpatient hospital services prior to his/her transfer to the SNF. [facility] Facility Order: Nursing Services, Perianesthesia Nurse-Evaluate & Treat, Physical Therapy-Evaluate & Treat Discharge Diet: Cardiac Diet Daily Activity as Tolerated: No (up only with assistance) New & Resume Previous Orders New & Resume Previous Orders Oxygen at 2L NC SVNs with duoneb q4hrs prn Other Instructions CBC on 06/06/16 Betsy Coronado May 31, 2016 10:25 BETSY CORONADO DO May 31, 2016 10:28 am
--- NOTE | 2016-05-31 10:39 | Discharge Summary ---
Diagnosis/Chief Complaint Date of Admission May 23, 2016 at 10:50 pm Date of Discharge Discharge Date: May 31, 2016 Admission Diagnosis Admission Diagnosis 1. Left intertrochanteric hip fracture--to surgery today for ORIF 2. COPD with ongoing tobacco abuse--oxygen, SVNS, resume home inhalers 3. Hypertension--resume home meds 4. GERD--resume protonix 5. History of CVA with left sided hemiparesis--resume aspirin after surgery Discharge Diagnosis 1. Left Intertrochanteric Hip Fracture--S/P ORIF, Continue PT/OT at SNF 2. Post-op anemia--acute on chronic--stable after transfusion 3. COPD--stable 4. Hypertension--stable 5. Confusion--improved 6. History of CVA with left sided paralysis--stable 7. GERD--stable 8. Tobacco Abuse--ongoing Reason Hospital Visit This is a 71 year old female who stated she was getting up to answer the phone at her home when she lost her balance and fell. She did hit her head but had no loss of consciousness. She landed on her left hip. In the emergency room, her main complaint was left hip pain. Her left hip x-ray did show a left intertrochanteric hip fracture. Her CT scan of her head was negative. She will be admitted for orthopedic consultation and surgery. Discharge Summary Hospital Course Hospital Course This is a 71 year old female who stated she was getting up to answer the phone at her home when she lost her balance and fell. She did hit her head but had no loss of consciousness. She landed on her left hip. In the emergency room, her main complaint was left hip pain. Her left hip x-ray did show a left intertrochanteric hip fracture. Her CT scan of her head was negative. She was admitted for orthopedic consultation and surgery. She underwent ORIF of her left hip fracture on 05/24/16. Post-operatively she did have a drop in her hemoglobin which did require transfusion. Her hemoglobin at this time has stabilized at 9.4. She does have a history of chronic anemia as well. She was continued on lovenox daily for DVT prophylaxis. She was started on SVNS with duoneb and incentive spirometry and despite her COPD had no respiratory issues post-operatively. She did have some post-op confusion but this has improved. Her appetite was also poor post-operatively but this is slowly improving. Her pain was well controlled and she has been working with PT and OT. SWING bed was considered but it was decided on SNF at [facility] instead as she will need a more prolonged stay. Labs Laboratory Tests 05/28/16 13:38: 05/29/16 04:30: Albumin 2.7L, Hematocrit 28L, Hemoglobin 9.0L, Monocytes (%) (Auto) 17H, Red Blood Count 3.39L, Red Cell Distribution Width 17.7H, Total Protein 5.4L 05/29/16 16:20: 05/30/16 06:40: Albumin 2.6L, Hematocrit 27L, Hemoglobin 8.6L, Monocytes (%) (Auto) 17H, Red Blood Count 3.27L, Red Cell Distribution Width 17.7H, Total Protein 5.2L, Glucose Level 107H, Lymphocytes # (Auto) 0.9L 05/31/16 05:59: Hematocrit 29L, Hemoglobin 9.2L, Lymphocytes # (Auto) 0.9L, Monocytes (%) (Auto ) 16H, Red Blood Count 3.51L, Red Cell Distribution Width 18.3H Procedures Left Hip ORIF Consultations Dr. Chadwick--ortho Discharge Physical Examination Allergies: Coded Allergies: Penicillins (Verified Allergy, Unknown, PT HAS RECEIVED ANCEF WITHOUT ISSUE, 05/30/14) meperidine (Verified Allergy, Unknown, 05/30/14) Vitals & I&Os Vital Signs Date Time Temp Pulse Resp B/P Pulse Ox O2 Delivery O2 Flow Rate FiO2 05/31/16 09:34 73 115/56 05/31/16 08:00 97.9 20 92 Nasal Cannula 3.00 General Appearance: Alert, Oriented X3, No Acute Distress Respiratory: Clear to Auscultation Cardiovascular: Regular Rate Abdominal: Normal Bowel Sounds, Soft, No Tenderness Skin: Other (left hip dressing dry and in place) Psych/Mental Status: Mental Status NL Discharge Home Medications Reviewed and agree with Discharge Medication list on patient's Discharge Instruction sheet Instructions to Patient/Family Please see electonic discharge instructions given to patient. Clinical Quality Measures DVT/VTE Risk/Contraindication: Risk Factor Score Per Nursin RFS Level Per Nursing on Admit: 4+=Very High KELSIE PEARSON DO May 31, 2016 10:39 am
--- NOTE | 2016-05-31 10:44 | Physical Therapy Progress Note ---
Therapy Progress Note Patient declined PT this a.m. secondary patient states she is going to OR on this date. PT to continue at OR to ensure safe return to home. 1 ref JOHN TINOCO PT May 31, 2016 10:44
[2016-05-31 13:19] VITALS: BP 115/56
== END 2016-05-31 13:00 | DRG 481 ==
LOC: EDUNIT# 22:07 → ER 22:08 → 4TH 22:50
PROVIDERS: ADMIT Family Medicine; ATTEND Family Medicine
PROC: 0QS706Z Reposition Left Upper Femur with Intramedullary Internal Fixation Device, Open Approach (ICD-10-PCS; principal; 2016-05-24 10:34)
DX: S72.142A Displaced intertrochanteric fracture of left femur, initial encounter for closed fracture (principal); D62 Acute posthemorrhagic anemia; I69.354 Hemiplegia and hemiparesis following cerebral infarction affecting left non-dominant side; J44.9 Chronic obstructive pulmonary disease, unspecified; I10 Essential (primary) hypertension; D64.9 Anemia, unspecified; F17.210 Nicotine dependence, cigarettes, uncomplicated; G40.909 Epilepsy, unspecified, not intractable, without status epilepticus; R32 Unspecified urinary incontinence; K21.9 Gastro-esophageal reflux disease without esophagitis; F41.9 Anxiety disorder, unspecified; H40.9 Unspecified glaucoma; I73.9 Peripheral vascular disease, unspecified; M79.7 Fibromyalgia; K59.09 Other constipation; M19.91 Primary osteoarthritis, unspecified site; M54.9 Dorsalgia, unspecified; R41.0 Disorientation, unspecified; Z85.3 Personal history of malignant neoplasm of breast; W19.XXXA Unspecified fall, initial encounter; Y92.009 Unspecified place in unspecified non-institutional (private) residence as the place of occurrence of the external cause; Y99.8 Other external cause status
CPT/HCPCS: 36415; 51702; 70450; 71010; 72170; 73502; 80048; 80053; 80069; 81000; 85014; 85018; 85025; 85610; 85730; 86850; 86900; 86901; 86920; 87081; 93005; 94640; 94664; 94760; 96361; 96374; 96375; 96376

== ENCOUNTER 2016-06-28 07:52 | Outpatient (RCR) | payer MEDICARE, MEDICAID ==
[~2016-06-28] VITALS: Ht 165.1 cm; Wt 73.7 kg
[2016-06-28] VITALS (8 sets, daily range): BP systolic 127–137; BP diastolic 44–61
[~2016-06-28 07:52] MED LIST changes: +ACET325T49 PO; +ATOR10TA66 PO; +BUSP5TAB59 PO; +CLOP75TA28 PO; +DOCU100C37 PO; +PANT40TA3 PO; +PHEN10TA4 PO; -PHEN10TA56 PO
[2016-06-28] MEDS ORDERED: diphenhydrAMINE 25 MG TAB (BENADRYL) PO ONE (08:15)
[2016-06-28] MEDS ORDERED: ACETAMINOPHEN 325 MG TABLET/CAPLET (TYLENOL) PO ONE (08:15)
[2016-06-28] MEDS ORDERED: NS IV 500 ML 500 ML IV SCH (08:15)
[2016-06-28] MEDS: FUROSEMIDE 40 MG/4 ML INJ (LASIX) IV SCH ×2 (10:59→14:28)
[2016-07-24] MEDS ORDERED: LORA10TA7 PO (11:59)
[2016-07-24] MEDS ORDERED: ACET325T49 PO (11:59)
[2016-07-24] MEDS ORDERED: MAGN400O7 PO (11:59)
[2016-07-24] MEDS ORDERED: IPRA3AMP IH (11:59)
[2016-07-24] MEDS ORDERED: SENN8.6T10 PO (11:59)
[2016-07-24] MEDS ORDERED: FAMO20TA5 PO (11:59)
[2016-07-24] MEDS ORDERED: OXYC-197 PO (11:59)
[2016-07-24] MEDS ORDERED: PEDI1TAB35 PO (11:59)
[2016-07-24] MEDS ORDERED: DOCU100C37 PO (11:59)
[2016-07-24] MEDS ORDERED: ONDA4TAB10 PO (11:59)
== END 2016-09-25 | disposition home or self-care (01) ==
LOC: SDC 07:52
PROVIDERS: ATTEND Family Medicine
DX: D64.9 Anemia, unspecified (principal)
CPT/HCPCS: 36430; 86850; 86900; 86901; 86920; 96374

== ENCOUNTER → 2016-07-12 | Outpatient (CLI) | payer MEDICARE, MEDICAID ==
[~2016-07-12] VITALS: Ht 165.1 cm; Wt 73.7 kg
[2016-07-12] VITALS (9 sets, daily range): BP systolic 107–161; BP diastolic 45–57
[~2016-07-12] MED LIST changes: +FAMO20TA5 PO; +IPRA3AMP IH; +MAGN400O7 PO; +NS IV 500 ML 500 ML ONE; +ONDA4TAB10 PO; +OXYC-197 PO; +PEDI1TAB35 PO; -PHEN10TA4 PO; +PHEN10TA56 PO; +SENN8.6T10 PO
== END ==
LOC: SDC 09:16
PROVIDERS: ATTEND Family Medicine
DX: D64.9 Anemia, unspecified (principal)
CPT/HCPCS: 36430; 86850; 86900; 86901; 86920

== ENCOUNTER → 2016-07-29 | Outpatient (CLI) | payer MEDICARE, MEDICAID ==
[~2016-07-29] MED LIST changes: -NS IV 500 ML 500 ML ONE
== END ==
LOC: PREOP 05:53
PROVIDERS: ATTEND Surgery
DX: Z01.818 Encounter for other preprocedural examination (principal); K92.2 Gastrointestinal hemorrhage, unspecified; Z86.010 Personal history of colon polyps

== ENCOUNTER 2016-07-31 10:50 | Day surgery (SDC) | payer MEDICARE, MEDICAID ==
[~2016-07-31] VITALS: Ht 172.7 cm; Wt 70.0 kg
[2016-07-31 11:13] VITALS: BP 115/50
[2016-07-31] MEDS ORDERED: NALOXONE 0.4 MG/ML 1 ML (NARCAN) VIAL IVP PRN (11:15)
[2016-07-31] MEDS ORDERED: FLUMAZENIL (ROMAZICON) 0.1 MG/ML 5 ML VIAL INJ PRN (11:15)
[2016-07-31] MEDS ORDERED: NS IV 500 ML 500 ML IV PRN (11:20)
--- NOTE | 2016-07-31 12:45 | Conscious Sedation/ASA ---
Conscious Sedation Pre-Proced Time Reviewed: 12:45 ASA Class: 2 Airway Mallampati Classification: ([place] appropriate class) I. II. III, IV Lungs Heart ASA score ASA 1: a normal healthy patient ASA 2: a patient with a mild systemic disease (mid diabetes, controlled hypertension, obesity ASA 3: a patient with a severe systemic disease that limits activity (angina , COPD, prior Myocardial infarction) ASA 4: a patient with an incapacitating disease that is a constant threat to life (CHF, renal failure) ASA 5: a moribund patient not expected to survive 24 hrs. (ruptured aneurysm) ASA 6: a declared brain patient whose organs are being harvested. For emergent operations, add the letter E after the classification Grade 2 Sedation Plan: Discussed options with patient/fam Note The patient is an appropriate candidate to undergo the planned procedure, sedation, and anesthesia. The patient immediately re-assessed prior to indication. RAFIQ CUELLAR MD July 31, 2016 12:45 pm
[2016-07-31] MEDS ORDERED: MIDAZOLAM 2 MG/2 ML (VERSED) VIAL ONE ×4 (12:51→12:52)
[2016-07-31] MEDS ORDERED: fentaNYL INJECTION 100 MCG/2 ML AMP ONE ×2 (12:51)
[2016-07-31] MEDS: fentaNYL INJECTION 100 MCG/2 ML AMP IVP PRN ×4 (13:01→13:12)
[2016-07-31] MEDS: MIDAZOLAM 2 MG/2 ML (VERSED) VIAL IVP PRN ×3 (13:02→13:09)
--- NOTE | 2016-07-31 13:26 | Endoscopy Procedure Report ---
Endoscopy Report Date: July 31, 2016 Preoperative Diagnosis: History of polyps. Chronic GI blood loss Study Performed: Colonoscopy Procedure Instrument: Colonoscope Endo Procedure/Findings Findings 1.: Diverticulosis Copy Copies To 1: KELSIE PEARSON XAVIER M MD July 31, 2016 1:26 pm
--- NOTE | 2016-07-31 13:28 | Discharge Inst-Simple/Standard ---
Discharge Inst-Standard Discharge Medications New, Converted or Re-Newed RX: Other Patient Instructions/Follow Up Plan of Care/Instructions/FU: F/u with Activity as Tolerated: Yes Discharge Diet: No Restrictions RAFIQ CUELLAR MD July 31, 2016 1:28 pm
[2016-07-31 13:40] VITALS: BP 133/63
[2016-07-31 14:05] VITALS: BP 134/51
[2016-07-31 14:10] VITALS: BP 134/51
--- NOTE | 2016-08-01 08:59 | OPERATIVE REPORT ---
DATE OF SERVICE: 07/31/2016 PROCEDURE PERFORMED: Colonoscopy. SURGEON: Rafiq Cuellar MD INDICATION FOR PROCEDURE: This lady has personal history of polyps and has been found to be anemic with iron deficiency picture. Therefore, informed consent was obtained after reviewing the procedure in detail. DESCRIPTION OF PROCEDURE: She was placed in left lateral decubitus position and her vital signs were monitored. Conscious sedation was achieved using Versed and fentanyl. Examination of the perianal area revealed some external hemorrhoids and skin tags. Digital examination was unremarkable. The colonoscope was introduced into the rectum and advanced all the way up to the cecum. The scope was then withdrawn slowly and the mucosa examined in a systematic fashion. FINDINGS: Very few sigmoid diverticula pattern. No recurrent polyps were found. She tolerated the procedure well and was taken back to the nursing area in a stable condition. IMPRESSION: Chronic gastrointestinal blood loss, no polyps. Job ID: [id number] DocumentID: [id number] Dictated Date: 07/31/2016 13:16:53 Loin Trimmer Date: 08/01/2016 08:58:24 Dictated By: RAFIQ CUELLAR MD MTDD
== END 2016-07-31 14:10 | disposition home or self-care (01) ==
LOC: ENDO 10:50
PROVIDERS: ATTEND Surgery
DX: K92.2 Gastrointestinal hemorrhage, unspecified (principal); K64.4 Residual hemorrhoidal skin tags; K57.90 Diverticulosis of intestine, part unspecified, without perforation or abscess without bleeding; D50.9 Iron deficiency anemia, unspecified; Z86.010 Personal history of colon polyps

== ENCOUNTER → 2016-11-15 | Outpatient (CLI) | payer MEDICARE, MEDICAID ==
[~2016-11-15] MED LIST changes: +PHEN10TA4 PO; -PHEN10TA56 PO; +SENN-148 PO; -SENN8.6T10 PO
--- NOTE | 2016-11-15 09:36 | Diagnostic Imaging Report ---
EXAM: CHEST PA/LAT (2 VIEW) INDICATION: COUGH, COPD COMPARISON: Chest radiograph 05/23/2016. FINDINGS: Normal heart size and pulmonary vascularity. No focal pulmonary opacity, pleural effusion or pneumothorax. Calcified aorta. No acute osseous findings. No significant change. IMPRESSION: No acute cardiopulmonary findings. Dictated by: Dictated on workstation # [id number]
== END ==
LOC: RAD 09:00
PROVIDERS: ATTEND Family Medicine
DX: R05 Cough (principal)
CPT/HCPCS: 71020

== ENCOUNTER → 2016-11-22 | Outpatient (CLI) | payer MEDICARE, MEDICAID ==
[~2016-11-22] MED LIST changes: +ACET-168 PO; +AMIT25TA9 PO; +FLUT16SP22 NS; -FLUT16SP22 NSEACH; +FURO40TA4 PO; +LEVO500T2 PO; +PRD20T PO
== END ==
LOC: CARD 09:39
PROVIDERS: ATTEND Family Medicine
DX: R01.1 Cardiac murmur, unspecified (principal); R60.9 Edema, unspecified
CPT/HCPCS: 93306

== ENCOUNTER → 2016-12-05 | Outpatient (CLI) | payer MEDICARE, MEDICAID ==
[~2016-12-05] MED LIST changes: -ACET-168 PO; -AMIT25TA9 PO; -FLUT16SP22 NS; +FLUT16SP22 NSEACH; -FURO40TA4 PO; -LEVO500T2 PO; -PRD20T PO
--- NOTE | 2016-12-05 14:32 | Diagnostic Imaging Report ---
PROCEDURE: CT chest without contrast. TECHNIQUE: Multiple contiguous axial images were obtained through the chest without the use of intravenous contrast. INDICATION: Cough. FINDINGS: There is minimal patchy consolidation in a nodular pattern seen in the superior segment of the right lower lobe suggestive of mild infectious or inflammatory pneumonitis. The rest of the lungs demonstrate no significant consolidation, or mass. No pleural or pericardial effusion. The thoracic aorta is normal in caliber. There is no mediastinal mass. No significantly enlarged mediastinal lymph nodes is seen. No axillary lymphadenopathy. Images from the upper abdomen demonstrate cholecystectomy clips. Osseous structures demonstrate mild scoliotic curvature convex to the left in the upper thoracic spine. IMPRESSION: Mild patchy, nodular pattern of consolidation is seen in the superior segment of the right lower lobe may relate to an infectious or inflammatory pneumonitis. A followup exam in 3 months is suggested to document resolution. Dictated by: Dictated on workstation # [id number]
== END ==
LOC: RAD 11:05
PROVIDERS: ATTEND Family Medicine
DX: R06.00 Dyspnea, unspecified; F17.210 Nicotine dependence, cigarettes, uncomplicated; R05 Cough
CPT/HCPCS: 71250

== ENCOUNTER 2017-01-09 14:44 | Emergency (ER) | payer MEDICARE, MEDICAID ==
[~2017-01-09] VITALS: Ht 172.7 cm; Wt 82.6 kg
[~2017-01-09 14:44] MED LIST changes: +ACET-168 PO; +AMIT25TA9 PO; +FLUT16SP22 NS; -FLUT16SP22 NSEACH; +FURO40TA4 PO; +LEVO500T2 PO; +PRD20T PO
--- NOTE | 2017-01-09 15:06 | ED Trauma-Multisystem ---
General Chief Complaint: Trauma-Non Activation Stated Complaint: FALL Nursing Triage Note: FALL AT DRS OFFICE Source of Information: Patient, EMS Exam Limitations: No Limitations History of Present Illness Time Seen by Provider: 15:01 Initial Comments This 71-year-old white female presents after she lost her balance and her doctor 's parking lot and fell striking her head. There was no history of loss of consciousness. Patient denies associated neck pain or paresthesias or weakness in her extremities. Patient has had no associated vomiting, dizziness, or vision, palpitations, chest pain, shortness of breath, abdominal pain, or dysuria. Patient was just recently hospitalized for pneumonia. She is in the care of Dr. PEARSON. Location Injury Occurred: PARKING LOT Allergies and Home Medications Allergies Coded Allergies: Penicillins (Verified Allergy, Unknown, PT HAS RECEIVED ANCEF WITHOUT ISSUE, 05/30/14) meperidine (Verified Allergy, Unknown, 05/30/14) Home Medications Acetaminophen 500 Mg Tablet, 1,000 MG PO Q6H PRN for PAIN-MILD, (Reported) TAKES 2 (500MG) TABLETS Albuterol/Ipratropium 4 Gm Aero, 1 PUFF IH QID PRN for SHORTNESS OF BREATH, ( Reported) Amitriptyline HCl 25 Mg Tablet, 25 MG PO HS, (Reported) Atorvastatin Calcium 10 Mg Tablet, 10 MG PO HS, (Reported) Buspirone HCl 5 Mg Tablet, 2.5 MG PO TID, (Reported) TAKES 1/2 (5MG) TABLET Divalproex Sodium 250 Mg Tablet.dr, 250 MG PO HS, (Reported) Docusate Sodium 100 Mg Capsule, 100 MG PO BID, (Reported) Fluticasone Propionate 16 Gm Dixon.susp, 1 SPRAY NS BID, (Reported) Furosemide 40 Mg Tablet, 40 MG PO DAILY, (Reported) Furosemide 40 Mg Tablet, 40 MG PO DAILY PRN for SWELLING, (Reported) TAKES AN EXTRA DOSE OF 40MG NEEDED FOR SWELLING Ipratropium/Albuterol Sulfate 3 Ml Ampul.neb, 3 ML IH Q4H PRN for SHORTNESS OF BREATH, (Reported) Latanoprost 2.5 Ml Drops, 1 DROP OU HS, (Reported) Levofloxacin 500 Mg Tablet, 500 MG PO DAILY, #5 Prescribed by: KELSIE PEARSON on 12/31/162033 Losartan Potassium 50 Mg Tablet, 50 MG PO DAILY, (Reported) Magnesium Hydroxide 400 Mg/5 Ml Oral.susp, 30 ML PO DAILY PRN for CONSTIPATION- 7TH LINE, (Reported) Nebivolol HCl 10 Mg Tab, 10 MG PO DAILY, (Reported) Ondansetron HCl 4 Mg Tablet, 4 MG PO Q8H PRN for NAUSEA/VOMITING-1ST LINE, ( Reported) Pantoprazole Sodium 40 Mg Tablet.dr, 40 MG PO BID, (Reported) Polyethylene Glycol 3350 255 Gm Powder, 17 GM PO DAILY PRN for CONSTIPATION-2ND LINE, (Reported) Potassium Chloride 10 Meq Tablet.er, 10 MEQ PO DAILY, (Reported) Prednisone 20 Mg Tab, 20 MG PO BID, #14 Prescribed by: KELSIE PEARSON on 12/31/162033 Sertraline HCl 100 Mg Tablet, 100 MG PO BID, (Reported) Constitutional: No chills, No fever, weakness Eyes: Denies Blurred Vision Ears: Denies Dizziness Nose: No Bloody Discharge Mouth: No Bloody Discharge Throat: No Difficulty With Fluids Respiratory: cough Cardiovascular: Denies Chest Pain, Denies Irregular Heart Rate, Denies Palpitations Gastrointestinal: No abdominal pain, No diarrhea, No nausea, No vomiting Genitourinary: no symptoms reported Musculoskeletal: No back pain, No joint pain Skin: No rash Psychiatric/Neurological: No Symptoms Reported Past [id number] Hx Patient Social History Type Used: Cigarettes Recent Hopitalizations: No Physical Abuse: No Sexual Abuse: No Immunizations Up To Date Tetanus Booster (TDap): Unknown Date of Pneumonia Vaccine: Dec 15, 2013 Date of Influenza Vaccine: Dec 12, 2016 Seasonal Allergies Seasonal Allergies: No Surgeries History of Surgeries: Yes (CAROTID, BREAST BIOPSIES,HERNIA REPAIR x2, HEMMORHOID SURGERIES) Surgeries: Abdominal, Breast, Gallbladder, Hysterectomy, Orthopedic, Rectal, Vascular Surgery Respiratory History of Respiratory Disorde: Yes (COPD) Respiratory Disorders: COPD Currently Using CPAP: No Currently Using BIPAP: No Cardiovascular History of Cardiac Disorders: Yes (CAROTID DISEASE) Cardiac Disorders: Coronary Artery Disease, High Cholesterol, Hypertension, Peripheral Vascular Neurological History of Neurological Disord: Yes (LEFT SIDE WEAKNESS--LAST TIA 01/2016) Neurological Disorders: Seizure Disorder, Stroke, TIA 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 System Hx 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 Disorders: No Sexually Transmitted Disease: No HIV/AIDS: No Female 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 Disorders: Denies 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 RETAIL 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: Hysterectomy, Menopausal Genitourinary History of Genitourinary Disor: No Gastrointestinal History of Gastrointestinal Di: Yes Gastrointestinal Disorders: Gastroesophageal Reflux, Chronic Constipation, Hemorrhoids, Hiatal Hernia Musculoskeletal History of Musculoskeletal Dis: Yes (CHRONIC GENERALIZED PAIN , FX RIGHT HIP ) Musculoskeletal Disorders: Arthritis, Fibromyalgia, Chronic Back Pain Endocrine History of Endocrine Disorders: No HEENT HEENT Disorders: Glaucoma Hearing Impairment: Denies Cancer History of Cancer: Yes Cancer: Breast Psychosocial History of Psychiatric Problem: Yes ("SEVERE ANXIETY" PER PT) Behavioral Health Disorders: Anxiety Suicide Risk Score: 0 Integumentary History of Skin or Integumenta: No Skin/Integumentary Disorders: Recent Skin Changes Blood Transfusions History of Blood Disorders: No Adverse Reaction to a Blood Tr: No Reviewed Nursing Assessment Reviewed/Agree w Nursing PMH: Yes Family Medical History Significant Family History: Cancer, Diabetes Family Medial History: Alcoholism 19 MOTHER, Onset:20's - 25 Aphasia 19 MOTHER, Onset:40's - 50 Asthma 19 FATHER, Onset:Unknown Congenital disease Son, Onset:Pre- Diabetes mellitus G8 SISTER, Onset:60 years & older FH: ovarian cancer G8 SISTER, Onset:Unknown FHx: stomach cancer 19 MOTHER, Onset:60 years & older Glaucoma Grandaughter, Onset:Unknown Hypertension 19 MOTHER, Onset:Unknown Infertility G8 SISTER, Onset:Pre- Tuberculosis G8 SISTER, Onset:30's - 40 No Family History of: AIDS Abdominal aortic aneurysm [place]'s disease Alzheimer's disease Cancer of mouth Cardiovascular disease Cataracts Colon cancer Completed stroke Congenital heart disease Coronary thrombosis Cystic fibrosis Deafness or hearing loss Dementia Drug abuse Dysphasia Fibrocystic disease of breast Gastroenteritis Gout Headache disorder Hypercholesterolemia Kidney disease Myocardial infarction Neoplasm Not obtainable due to adoption Osteoporosis Parkinson's disease Prostate cancer Psychosocial problem Respiratory disorder Seizure disorder Severe allergy Thyroid disease Visual disorder Physical Exam Vital Signs Vital Sign - Last 12Hours 01/09/17 14:50 Temp 99.1 Pulse 82 Resp 18 B/P (MAP) 138/66 Pulse Ox 94 General Appearance: No Apparent Distress, WD/WN Head: Other (there is a superficial abrasion approximately 3 cm in diameter over the occiput. There is mild soft tissue swelling. There is no depression crepitus or instability. No Marrero sign is present.) Eyes: Bilateral Eye Normal Inspection Ears, Nose, Throat: No Evidence of ENT Injury Neck: Normal Inspection, Non Tender Cardiovascular: Regular Rate, Rhythm Respiratory: Chest Non Tender, Lungs Clear Gastrointestinal: Normal Bowel Sounds Back: Normal Inspection Extremity: Normal Capillary Refill, Normal Inspection Neurologic/Psychiatric: Alert, Oriented x3, No Motor/Sensory Deficits, Normal Mood/Affect Skin: Normal Color, Warm/Dry, No Rash Focused Exam Evaluation Lactate Level Laboratory Tests 01/09/17 15:35: Lactic Acid Level 0.90 Lactic Acid Level Laboratory Tests Test 01/09/17 15:35 Lactic Acid Level 0.90 MMOL/L (0.50-2.00) Progress/Results/Core Measures Results/Orders Lab Results Laboratory Tests Test 01/09/17 15:15 01/09/17 15:35 Range/Units Urine Color YELLOW Urine Clarity CLEAR Urine pH 7 5-9 Urine Specific [place] 1.010 L 1.016-1.022 Urine Protein NEGATIVE NEGATIVE Urine Glucose (UA) NEGATIVE NEGATIVE Urine Ketones NEGATIVE NEGATIVE Urine Nitrite NEGATIVE NEGATIVE Urine Bilirubin NEGATIVE NEGATIVE Urine Urobilinogen NORMAL NORMAL MG/DL Urine Leukocyte Esterase NEGATIVE NEGATIVE Urine RBC (Auto) NEGATIVE NEGATIVE Urine RBC NONE /HPF Urine WBC NONE /HPF Urine Squamous Epithelial Cells 0-2 /HPF Urine Crystals NONE /LPF Urine Bacteria NEGATIVE /HPF Urine Casts NONE /LPF Urine Mucus NEGATIVE /LPF Urine Culture Indicated NO White Blood Count 11.1 H 4.3-11.0 10^3/uL Red Blood Count 4.01 L 4.35-5.85 10^6/uL Hemoglobin 10.1 L 11.5-16.0 G/DL Hematocrit 32 L 35-52 % Mean Corpuscular Volume 80 80-99 FL Mean Corpuscular Hemoglobin 25 25-34 PG Mean Corpuscular Hemoglobin Concent 31 L 32-36 G/DL Red Cell Distribution Width 21.6 H 10.0-14.5 % Platelet Count 312 130-400 10^3/uL Mean Platelet Volume 9.5 7.4-10.4 FL Neutrophils (%) (Auto) 73 42-75 % Lymphocytes (%) (Auto) 18 12-44 % Monocytes (%) (Auto) 9 0-12 % Eosinophils (%) (Auto) 1 0-10 % Basophils (%) (Auto) 0 0-10 % Neutrophils # (Auto) 8.0 H 1.8-7.8 X 10^3 Lymphocytes # (Auto) 1.9 1.0-4.0 X 10^3 Monocytes # (Auto) 1.0 0.0-1.0 X 10^3 Eosinophils # (Auto) 0.1 0.0-0.3 10^3/uL Basophils # (Auto) 0.0 0.0-0.1 10^3/uL Sodium Level 130 L 135-145 MMOL/L Potassium Level 4.4 3.6-5.0 MMOL/L Chloride Level 93 L 98-107 MMOL/L Carbon Dioxide Level 29 21-32 MMOL/L Anion Gap 8 5-14 MMOL/L Blood Urea Nitrogen 17 7-18 MG/DL Creatinine 0.91 0.60-1.30 MG/DL Estimat Glomerular Filtration Rate > 60 BUN/Creatinine Ratio 19 Glucose Level 84 70-105 MG/DL Lactic Acid Level 0.90 0.50-2.00 MMOL/L Calcium Level 9.2 8.5-10.1 MG/DL Total Bilirubin 0.3 0.1-1.0 MG/DL Aspartate Amino Transf (AST/SGOT) 12 5-34 U/L Alanine Aminotransferase (ALT/SGPT) 11 0-55 U/L Alkaline Phosphatase 69 40-136 U/L Total Protein 6.4 6.4-8.2 GM/DL Albumin 3.6 3.2-4.5 GM/DL My Orders Orders - CLEO ROTH MD Ct Head/Cervical Spine Wo (01/09/17 14:59) Cbc With Automated Diff (01/09/17 15:36) Comprehensive Metabolic Panel (01/09/17 15:36) Ua Culture If Indicated (01/09/17 15:36) Blood Culture (01/09/17 15:36) Lactic Acid Analyzer (01/09/17 15:36) Blood Culture (01/09/17 15:41) Vital Signs/I&O Vital Sign - Last 12Hours 01/09/17 14:50 Temp 99.1 Pulse 82 Resp 18 B/P (MAP) 138/66 Pulse Ox 94 Progress Note : Time: 17:13 Progress Note The patient had a CT of the head performed. On my review I saw no evidence of acute pathology. Furthermore the patient's laboratory evaluation proved unremarkable. Patient remained awake and alert throughout her evaluation in the emergency department. Departure Impression Impression: Primary Impression: Fall Qualified Codes: W19.XXXA - Unspecified fall, initial encounter Additional Impression: Contusion of occipital region of scalp Qualified Codes: S00.03XA - Contusion of scalp, initial encounter Disposition: 01 HOME, SELF-CARE Condition: Improved Departure-Patient Inst. Decision time for Depature: 17:14 Referrals: KELSIE PEARSON DO (PCP/Family) Primary Care Physician Patient Instructions: Concussion, Adult (DC) Add. Discharge Instructions: Rest at home. Follow head injury instructions. Follow up closely with Dr. Pearson. Return if any problems or questions. All discharge instructions reviewed with patient and/or family. Voiced understanding. CLEO ROTH MD Jan 09, 2017 15:05
[2017-01-09 15:52] LABS: BASOPHILS % (AUTO) 0 % (0-10); EOSINOPHILS # (AUTO) 0.1 10^3/uL (0.0-0.3); EOSINOPHILS % (AUTO) 1 % (0-10); LYMPHOCYTES # (AUTO) 1.9 X 10^3 (1.0-4.0); LYMPHOCYTES % (AUTO) 18 % (12-44); MEAN CORPUSCULAR HEMOGLOBIN 25 PG (25-34); MEAN CORPUSCULAR HGB CONC 31 G/DL (32-36); MEAN CORPUSCULAR VOLUME 80 FL (80-99); MEAN PLATELET VOLUME 9.5 FL (7.4-10.4); MONOCYTES % (AUTO) 9 % (0-12); NEUTROPHILS % (AUTO) 73 % (42-75); PLATELET COUNT 312 10^3/uL (130-400); RED BLOOD COUNT 4.01 10^6/uL (4.35-5.85); RED CELL DISTRIBUTION WIDTH 21.6 % (10.0-14.5); WHITE BLOOD COUNT 11.1 10^3/uL (4.3-11.0)
[2017-01-09 15:57] LABS: BILIRUBIN,URINE NEGATIVE (NEGATIVE); KETONES,URINE NEGATIVE (NEGATIVE); LEUKOCYTE ESTERASE ,URINE NEGATIVE (NEGATIVE); NITRITE,URINE NEGATIVE (NEGATIVE); PH,URINE 7 (5-9); PROTEIN,URINE NEGATIVE (NEGATIVE); UROBILINOGEN,URINE NORMAL (NORMAL)
[2017-01-09 16:03] LABS: SQUAMOUS EPITHELIAL CELL,UR 0-2 /HPF
[2017-01-09 16:11] LABS: ALANINE AMINOTRANSFERASE 11 U/L (0-55); ALBUMIN 3.6 GM/DL (3.2-4.5); ANION GAP 8 MMOL/L (5-14); ASPARTATE AMINO TRANSFERASE 12 U/L (5-34); BILIRUBIN,TOTAL 0.3 MG/DL (0.1-1.0); BLOOD UREA NITROGEN 17 MG/DL (7-18); BUN/CREATININE RATIO 19; CALCIUM 9.2 MG/DL (8.5-10.1); CARBON DIOXIDE 29 MMOL/L (21-32); CHLORIDE 93 MMOL/L (98-107); CREATININE SERUM 0.91 MG/DL (0.60-1.30); GFR ESTIMATED > 60; GLUCOSE 84 MG/DL (70-105); POTASSIUM 4.4 MMOL/L (3.6-5.0); SODIUM 130 MMOL/L (135-145); TOTAL PROTEIN 6.4 GM/DL (6.4-8.2)
--- NOTE | 2017-01-09 17:22 | Diagnostic Imaging Report ---
PROCEDURE: CT head and CT cervical spine without contrast. TECHNIQUE: Multiple contiguous axial images were obtained through the brain and cervical spine without the use of intravenous contrast. Sagittal and coronal reformations through the cervical spine were then performed. INDICATION: Fall. FINDINGS: CT head: No intracranial hemorrhage, edema or mass effect. There is lacunar infarct in the basal ganglia and in the right centrum semiovale without change from 05/23/2016. No hydrocephalus. No extra-axial fluid collections seen. There is a small posterior left parietal scalp hematoma. The calvarium, the paranasal sinuses and the orbits appear grossly unremarkable. CT cervical spine: There is reversal of the lordotic curvature in the cervical spine. The vertebral body heights are preserved. There is moderate disc height loss at C5-C6. The alignment of the facet joints is satisfactory. No widening of the predental space. No fracture is seen. Please note that some of the images are repeated on this exam due to patient's motion. IMPRESSION: CT head: Small posterior left parietal scalp hematoma. No intracranial hemorrhage. CT cervical spine: Degenerative changes. No fracture seen. Dictated by: Dictated on workstation # [id number]
[2017-01-09 17:24] VITALS: BP 138/66
== END 2017-01-09 17:24 | disposition home or self-care (01) ==
LOC: EDUNIT# 14:44 → ER 14:45
DX: S00.03XA Contusion of scalp, initial encounter (principal); F41.9 Anxiety disorder, unspecified; K21.9 Gastro-esophageal reflux disease without esophagitis; E78.00 Pure hypercholesterolemia, unspecified; I10 Essential (primary) hypertension; I25.10 Atherosclerotic heart disease of native coronary artery without angina pectoris; G40.909 Epilepsy, unspecified, not intractable, without status epilepticus; J44.9 Chronic obstructive pulmonary disease, unspecified; Z86.73 Personal history of transient ischemic attack (TIA), and cerebral infarction without residual deficits; Z87.01 Personal history of pneumonia (recurrent); Z87.19 Personal history of other diseases of the digestive system; Z90.710 Acquired absence of both cervix and uterus; Z80.0 Family history of malignant neoplasm of digestive organs; Z80.41 Family history of malignant neoplasm of ovary; W18.30XA Fall on same level, unspecified, initial encounter; Y92.89 Other specified places as the place of occurrence of the external cause
CPT/HCPCS: 36415; 70450; 72125; 80053; 81000; 83605; 85025; 87040; 99284

== ENCOUNTER → 2017-05-05 | Outpatient (CLI) | payer MEDICARE, MEDICAID ==
[~2017-05-05] MED LIST changes: -HYDR-3812 PO
--- NOTE | 2017-05-05 14:14 | Diagnostic Imaging Report ---
INDICATION: Cough and shortness of breath. TIME OF EXAM: 02:26 p.m. Correlation is made with prior study from 12/29/2016. FINDINGS: The heart size is stable. There is a suggestion of mild patchy infiltrate in the right base on the frontal view. The remainder of the lung garrison is clear. The pulmonary vascularity is normal. No effusion or pneumothorax is seen. IMPRESSION: Findings suggestive of mild patchy right basilar infiltrate. Dictated by: Dictated on workstation # [id number]
== END ==
LOC: RAD 13:55
PROVIDERS: ATTEND Nurse Practitioner Family
DX: R05 Cough (principal)
CPT/HCPCS: 71046

== ENCOUNTER 2017-05-12 20:44 | Inpatient (IN) | payer MEDICARE, MEDICAID ==
[~2017-05-12] VITALS: Ht 172.7 cm; Wt 85.9 kg
[2017-05-12] MEDS ORDERED: RT-ALBUTEROL/IPRATROPIUM 3 ML (DUONEB) VIAL ONE ×2 (20:54→21:01)
[2017-05-12] MEDS ORDERED: methylPREDNISolone 125 MG (Solu-MEDROL) VIAL ONE (20:55)
[2017-05-12] MEDS ORDERED: FUROSEMIDE 40 MG/4 ML INJ (LASIX) ONE (20:55)
--- OUTSIDE RECORDS SUMMARY | 2017-05-12 20:57 | XMS REPORT | Continuity of Care Document ---
Author Author [facility] Organization [facility] Address Unknown Phone Unavailable Allergies Active Description Code Type Severity Reaction Onset Reported/Identified Relationship to Patient Clinical Status Yes Penicillins [id number] Drug Allergy Unknown N/A 10/01/2006 Yes meperidine [id number] Drug Allergy Unknown N/A 07/24/2016 Yes Penicillins [id number] Drug Allergy Unknown PT HAS RECEIVED 07/24/2016 Medications There is no data. Problems Date Dx Coded Attending Type Code Diagnosis Diagnosed By 07/27/2009 Ot 553.21 05/03/2010 Ot 272.4 05/03/2010 Ot 401.9 05/03/2010 Ot 414.01 05/03/2010 Ot 440.0 05/03/2010 Ot 440.20 05/03/2010 Ot 780.4 05/03/2010 Ot 786.50 05/03/2010 Ot V45.89 05/10/2010 Ot 272.4 05/10/2010 Ot 305.1 05/10/2010 Ot 401.9 05/10/2010 Ot 433.10 05/10/2010 Ot 440.20 05/10/2010 Ot 496 05/10/2010 Ot 780.4 05/10/2010 Ot 786.59 05/11/2014 Ot 611.1 05/11/2014 Ot 729.82 05/11/2014 Ot V58.69 05/11/2014 Ot 433.10 05/11/2014 Ot 564.00 05/11/2014 Ot 789.00 05/11/2014 Ot 272.4 05/11/2014 Ot 401.9 05/11/2014 Ot 786.05 05/11/2014 Ot 786.2 05/11/2014 Ot 610.8 05/11/2014 Ot 780.79 05/11/2014 Ot 553.21 05/11/2014 Ot V72.83 05/11/2014 Ot 998.13 05/11/2014 Ot V72.63 05/11/2014 Ot 998.13 05/11/2014 Ot 305.1 05/11/2014 Ot 786.2 05/11/2014 Ot V76.12 05/11/2014 Ot 441.4 05/11/2014 Ot V67.09 05/11/2014 Ot 305.1 05/11/2014 Ot 443.9 05/11/2014 Ot 585.3 05/11/2014 Ot 611.1 05/11/2014 Ot V58.63 05/11/2014 Ot V58.69 05/11/2014 Ot 786.05 05/11/2014 Ot 786.2 05/11/2014 Ot 174.9 05/11/2014 Ot V76.11 05/11/2014 Ot 305.1 05/11/2014 Ot 433.30 05/11/2014 Ot 785.9 05/11/2014 Ot 786.09 05/11/2014 Ot 305.1 05/11/2014 Ot 786.09 05/11/2014 Ot 305.1 05/11/2014 Ot 443.9 05/11/2014 Ot 585.3 05/11/2014 Ot 611.1 05/11/2014 Ot V58.63 05/11/2014 Ot V58.69 05/11/2014 Ot 174.9 05/11/2014 Ot V76.11 05/11/2014 Ot 784.0 05/11/2014 Ot 397.0 05/11/2014 Ot 414.00 05/11/2014 Ot 424.0 05/11/2014 Ot 786.09 05/11/2014 Ot 722.52 05/11/2014 JOANA MARTELL Ot 174.9 05/11/2014 JOANA MARTELL Ot V76.12 05/12/2014 Ot 272.4 HYPERLIPIDEMIA NEC/NOS 05/12/2014 Ot 305.1 TOBACCO USE DISORDER 05/12/2014 Ot 403.90 HYPTNSV CHR KID DIS, UNSPEC, W CHR KD ST 05/12/2014 Ot 414.00 CORON ATHEROSCLER NOS TYPE VESSEL, NATIV 05/12/2014 Ot 440.21 ATHEROSCL [place] ARTER EXTREM W INTERMIT 05/12/2014 Ot 441.4 ABDOM AORTIC ANEURYSM 05/12/2014 Ot 496 CHR AIRWAY OBSTRUCT NEC 05/12/2014 Ot 585.9 CHRONIC KIDNEY DISEASE, UNSPECIFIED 05/12/2014 Ot V45.89 POSTSURGICAL STATES NEC 05/12/2014 Ot V58.69 OTH MED,LT, CURRENT USE 06/02/2014 Ot 272.4 HYPERLIPIDEMIA NEC/NOS 06/02/2014 Ot 276.50 VOLUME DEPLETION, UNSPECIFIED 06/02/2014 Ot 305.1 TOBACCO USE DISORDER 06/02/2014 Ot 342.90 UNSPEC HEMIPLEGIA HEMIPARESIS UNSPEC S 06/02/2014 Ot 365.9 GLAUCOMA NOS 06/02/2014 Ot 403.90 HYPTNSV CHR KID DIS, UNSPEC, W CHR KD ST 06/02/2014 Ot 427.0 PAROX ATRIAL TACHYCARDIA 06/02/2014 Ot 427.61 ATRIAL PREMATURE BEATS 06/02/2014 Ot 427.89 CARDIAC DYSRHYTHMIAS NEC 06/02/2014 Ot 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 06/02/2014 Ot 433.30 MULT BILTRAL ARTERY OCCLUSION WO CEREBRA 06/02/2014 Ot 434.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 06/02/2014 Ot 441.4 ABDOM AORTIC ANEURYSM 06/02/2014 Ot 443.9 PERIPH VASCULAR DIS NOS 06/02/2014 Ot 458.9 HYPOTENSION NOS 06/02/2014 Ot 496 CHR AIRWAY OBSTRUCT NEC 06/02/2014 Ot 585.3 CHRONIC KIDNEY DISEASE, STAGE III (MODER 06/02/2014 Ot 720.0 ANKYLOSING SPONDYLITIS 06/02/2014 Ot 729.1 MYALGIA AND MYOSITIS NOS 06/02/2014 Ot 780.57 UNSPECIFIED SLEEP APNEA 06/02/2014 Ot 781.94 FACIAL WEAKNESS 06/02/2014 Ot 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 06/14/2014 NIKKIE RAE, SANDRA E Ot 285.9 06/14/2014 NIKKIE RAE, SANDRA E Ot 311 06/14/2014 NIKKIE RAE, SANDRA E Ot 365.9 06/14/2014 NIKKIE RAE, SANDRA E Ot 401.9 06/14/2014 NIKKIE RAE, SANDRA E Ot 414.01 06/14/2014 NIKKIE RAE, SANRDA E Ot 438.22 06/14/2014 NIKKIE RAE, SANDRA E Ot 438.83 06/14/2014 NIKKIE RAE, SANDRA E Ot 496 06/14/2014 NIKKIE RAE, SANDRA E Ot 716.90 06/14/2014 NIKKIE RAE, SANDRA E Ot 724.5 06/14/2014 LUNDY MD, SANDRA E Ot 729.1 06/14/2014 SANDRA LUNDY MD Ot V10.3 06/14/2014 SANDRA LUNDY MD Ot V46.2 06/14/2014 SANDRA LUNDY MD Ot V57.89 06/17/2014 SANDRA LUNDY MD Ot 276.8 HYPOPOTASSEMIA 06/17/2014 SANDRA LUNDY MD Ot 285.9 ANEMIA NOS 06/17/2014 SANDRA LUNDY MD Ot 311 DEPRESSIVE DISORDER NEC 06/17/2014 SANDRA LUNDY MD Ot 365.9 GLAUCOMA NOS 06/17/2014 SANDRA LUNDY MD Ot 401.9 HYPERTENSION NOS 06/17/2014 SANDRA LUNDY MD E Ot 414.01 CORONARY ATHEROSCLEROSIS OF [place] CORON 06/17/2014 SANDRA LUNDY MD Ot 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,HEMIPLEGIA AFFECTING 06/17/2014 SANDRA LUNDY MD Ot 438.83 FACIAL WEAKNESS 06/17/2014 SANDRA LUNDY MD Ot 496 CHR AIRWAY OBSTRUCT NEC 06/17/2014 SANDRA LUNDY MD E Ot 564.00 UNSPEC CONSTIPATION 06/17/2014 SANDRA LUNDY MD E Ot 716.90 ARTHROPATHY NOS-UNSPEC 06/17/2014 SANDRA LUNDY MD Ot 724.5 BACKACHE NOS 06/17/2014 SANDRA LUNDY MD Ot 729.1 MYALGIA AND MYOSITIS NOS 06/17/2014 SANDRA LUNDY MD Ot V10.3 HX OF BREAST MALIGNANCY 06/17/2014 SANDRA LUNDY MD Ot V46.2 SUPPLEMENTAL OXYGEN 06/17/2014 SANDRA LUNDY MD Ot V57.89 REHABILITATION PROC NEC 06/17/2014 Ot 433.10 06/17/2014 Ot V72.63 06/17/2014 Ot V74.8 06/27/2014 Ot 433.10 06/27/2014 Ot 564.00 06/27/2014 Ot 789.00 06/27/2014 Ot 272.4 06/27/2014 Ot 401.9 06/27/2014 Ot 786.05 06/27/2014 Ot 786.2 06/27/2014 Ot 610.8 06/27/2014 Ot 780.79 06/27/2014 Ot 553.21 06/27/2014 Ot V72.83 06/27/2014 Ot 998.13 06/27/2014 Ot V72.63 06/27/2014 Ot 998.13 06/27/2014 Ot 305.1 06/27/2014 Ot 786.2 06/27/2014 Ot V76.12 06/27/2014 Ot 441.4 06/27/2014 Ot V67.09 06/27/2014 Ot 305.1 06/27/2014 Ot 443.9 06/27/2014 Ot 585.3 06/27/2014 Ot 611.1 06/27/2014 Ot V58.63 06/27/2014 Ot V58.69 06/27/2014 Ot 786.05 06/27/2014 Ot 786.2 06/27/2014 Ot 174.9 06/27/2014 Ot V76.11 06/27/2014 Ot 305.1 06/27/2014 Ot 433.30 06/27/2014 Ot 785.9 06/27/2014 Ot 786.09 06/27/2014 Ot 305.1 06/27/2014 Ot 786.09 06/27/2014 Ot 305.1 06/27/2014 Ot 443.9 06/27/2014 Ot 585.3 06/27/2014 Ot 611.1 06/27/2014 Ot V58.63 06/27/2014 Ot V58.69 06/27/2014 Ot 174.9 06/27/2014 Ot V76.11 06/27/2014 Ot 784.0 06/27/2014 Ot 397.0 06/27/2014 Ot 414.00 06/27/2014 Ot 424.0 06/27/2014 Ot 786.09 06/27/2014 Ot 722.52 06/27/2014 JOANA MARTELL Ot 174.9 06/27/2014 JOANA MARTELL Ot V76.12 06/27/2014 Ot 433.10 06/27/2014 Ot V72.63 06/27/2014 Ot V74.8 07/15/2014 CHARLENENDER DONEHEMIASKELSIE S Ot 438.20 07/15/2014 CHARLENENDER DO, KELSIE S Ot V57.89 07/15/2014 CHARLENENDER DO, KELSIE S Ot 438.20 07/15/2014 ORENDER DO, KELSIE S Ot V57.89 07/15/2014 CHARLENENDER DO, KELSIE S Ot 438.20 07/15[facility]57.89 07/15[facility] S Ot 438.20 07/15/2014 [facility] S Ot V57.89 07/16/2014 [facility]E S Ot 276.8 07/16/2014 [facility]E S Ot 285.1 07/16/2014 [facility] DO, KELSIE S Ot 365.9 07/16/2014 [facility] DO, KELSIE S Ot 401.9 07/16/2014 [facility], KELSIE S Ot 496 07/16/2014 [facility], KELSIE S Ot 533.40 07/16/2014 [facility] DO, KELSIE S Ot 716.90 07/16/2014 [facility], KELSIE S Ot 724.5 07/16/2014 [facility], KELSIE S Ot 729.1 07/16/2014 [facility] KELSIE S Ot 780.57 07/16/2014 [facility] DO, KELSIE S Ot V12.54 07/16/2014 [facility] DO, KELSIE S Ot V45.89 07/16/2014 [facility] DO, KELSIE S Ot 276.8 HYPOPOTASSEMIA 07/16/2014 [facility] DO, KELSIE S Ot 285.1 AC POSTHEMORRHAG ANEMIA 07/16/2014 [facility] DO KELSIE S Ot 365.9 GLAUCOMA NOS 07/16/2014 [facility] DO, KELSIE S Ot 401.9 HYPERTENSION NOS 07/16/2014 [facility] DO, KELSIE S Ot 496 CHR AIRWAY OBSTRUCT NEC 07/16/2014 [facility] S Ot 533.40 07/16/2014 [facility]E S Ot 569.0 ANAL RECTAL POLYP 07/16/2014 [facility] DO, KELSIE S Ot 578.9 GASTROINTEST HEMORR NOS 07/16/2014 [facility], [facility]E S Ot 716.90 ARTHROPATHY NOS-UNSPEC 07/16/2014 [facility] DO KELSIE S Ot 724.5 BACKACHE NOS 07/16/2014 NEHEMIAS PEARSON DOLINE S Ot 729.1 MYALGIA AND MYOSITIS NOS 07/16/2014 NEHEMIAS PEARSON DOLINE S Ot 780.57 UNSPECIFIED SLEEP APNEA 07/16/2014 NEHEMIAS PEARSON DOLINE S Ot V12.54 PERSONAL HX OF TIA, CEREBRAL INFARCTION 07/16/2014 NEHEMIAS PEARSON DOLINE S Ot V12.71 PERSONAL HISTORY OF PEPTIC ULCER DISEASE 07/16/2014 NEHEMIAS PEARSON DOLINE S Ot V45.89 POSTSURGICAL STATES NEC 07/22/2014 SMITH CAMARENA MD Ot 438.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,HEMIPLEGIA AFFECTING 07/22/2014 SMITH CAMARENA MD Ot 719.45 JOINT PAIN-PELVIS 07/22/2014 SMITH CAMARENA MD Ot V58.69 OTH MED,LT,CURRENT USE 07/25/2014 NEHEMIAS PEARSON DOLINE S Ot 438.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,HEMIPLEGIA AFFECTING 07/25/2014 NEHEMIAS PEARSON DOLINE S Ot V57.89 REHABILITATION PROC NEC 08/25/2014 NEHEMIAS PEARSON DOLINE S Ot 276.52 HYPOVOLEMIA 08/25/2014 NEHEMIAS PEARSON DOLINE S Ot 280.0 CHR BLOOD LOSS ANEMIA 08/25/2014 NEHEMIAS PEARSON DOLINE S Ot 401.9 HYPERTENSION NOS 08/25/2014 NEHEMIAS PEARSON DOLINE S Ot 438.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,HEMIPLEGIA AFFECTING 08/25/2014 NEHEMIAS PEARSON DOLINE S Ot 599.0 URIN TRACT INFECTION NOS 09/29/2014 MIRNA DAN PHYSICIAN ASSISTANT CERTIFIED Ot 719.41 10/05/2014 MIRNA DAN PHYSICIAN ASSISTANT CERTIFIED Ot 719.41 10/24/2014 CATRACHO RAE, AMANDA Diallo Ot 272.4 10/24/2014 CATRACHO RAE, AMANDA Diallo Ot 401.9 10/24/2014 CATRACHO RAE, AMANDA Diallo Ot 414.00 10/24/2014 CATRACHO RAE, AMANDA Diallo Ot 443.9 10/24/2014 CATRACHO RAE, AMANDA Diallo Ot 272.4 10/24/2014 AMANDA HAYDEN MD Ot 401.9 10/24/2014 CATRACHO RAE, AMANDA Diallo Ot 414.00 10/24/2014 CATRACHO RAE, AMANDA Diallo Ot 443.9 10/28/2014 CATRACHO RAE, AMANDA Diallo Ot 272.4 10/28/2014 CATRACHO RAE, AMANDA J Ot 401.9 10/28/2014 CATRACHO RAE, AMANDA Diallo Ot 414.00 10/28/2014 CATRACHO RAE, AMANDA Diallo Ot 443.9 11/11/2014 CATRACHO RAE, AMANDA Diallo Ot 272.4 11/11/2014 CATRACHO RAE, AMANDA Diallo Ot 401.9 11/11/2014 CATRACHO RAE, AMANDA Diallo Ot 414.00 11/11/2014 CATRACHO RAE, AMANDA Diallo Ot 443.9 02/16/2015 JANI DUNLAP PHYSICIAN ASSISTANT CERTIFIED Ot J18.9 02/16/2015 JANI DUNLAP PHYSICIAN ASSISTANT CERTIFIED Ot J44.9 02/28/2015 JANI DUNLAP PHYSICIAN ASSISTANT CERTIFIED Ot J18.9 02/28/2015 JANI DUNLAP PHYSICIAN ASSISTANT CERTIFIED Ot J44.9 09/11/2015 CHARLENENDER DO, KELSIE S Ot D64.9 ANEMIA, UNSPECIFIED 09/11/2015 ORENDER DO, KELSIE S Ot G47.30 SLEEP APNEA, UNSPECIFIED 09/11/2015 ORENDER DO, KELSIE S Ot J44.9 CHRONIC OBSTRUCTIVE PULMONARY DISEASE, U 09/11/2015 ORENDER DO, KELSIE S Ot S72.144A NONDISPLACED INTERTROCHANTERIC FRACTURE 09/12/2015 CHARLENENDER DO, KELSIE S Ot D64.9 ANEMIA, UNSPECIFIED 09/12/2015 ORENDER DO, KELSIE S Ot E78.0 PURE HYPERCHOLESTEROLEMIA 09/12/2015 ORENDER DO, KELSIE S Ot F17.210 NICOTINE DEPENDENCE, CIGARETTES, UNCOMPL 09/12/2015 ORENDER DO, KELSIE S Ot F41.9 ANXIETY DISORDER, UNSPECIFIED 09/12/2015 ORENDER DO, KELSIE S Ot F43.21 ADJUSTMENT DISORDER WITH DEPRESSED MOOD 09/12/2015 ORENDER DO, KELSIE S Ot G47.30 SLEEP APNEA, UNSPECIFIED 09/12/2015 ORENDER DO, KELSIE S Ot H40.9 UNSPECIFIED GLAUCOMA 09/12/2015 ORENDER DO, KELSIE S Ot I10 ESSENTIAL (PRIMARY) HYPERTENSION 09/12/2015 CHARLENENDER , KELSIE S Ot I69.354 HEMIPLGA FOLLOWING CEREBRAL INFRC AFFECT 09/12/2015 CHARLENENDDOLORES MONCADA KELSIE S Ot J44.9 CHRONIC OBSTRUCTIVE PULMONARY DISEASE, U 09/12/2015 CHARLENENDER KELSIE S Ot K44.9 DIAPHRAGMATIC HERNIA WITHOUT OBSTRUCTION 09/12/2015 CHARLENENDER DO, KELSIE S Ot M19.90 UNSPECIFIED OSTEOARTHRITIS, UNSPECIFIED 09/12/2015 CHARLENENDER DO, KELSIE S Ot M54.9 DORSALGIA, UNSPECIFIED 09/12/2015 CHARLENENDER , KELSIE S Ot M79.7 FIBROMYALGIA 09/12/2015 CHARLENENDER KELSIE S Ot R41.0 DISORIENTATION, UNSPECIFIED 09/12/2015 CHARLENENDDOLORES MONCADA KELSIE S Ot S72.144A NONDISPLACED INTERTROCHANTERIC FRACTURE 09/12/2015 MICHEL KELSIE S Ot W19.XXXA UNSPECIFIED FALL, INITIAL ENCOUNTER 09/14/2015 SANDRA LUNDY MD Ot E78.0 PURE HYPERCHOLESTEROLEMIA 09/14/2015 SANDRA LUNDY MD Ot F17.210 NICOTINE DEPENDENCE, CIGARETTES, UNCOMPL 09/14/2015 SANDRA LUNDY MD Ot I10 ESSENTIAL (PRIMARY) HYPERTENSION 09/14/2015 SANDRA LUNDY MD Ot I69.354 HEMIPLGA FOLLOWING CEREBRAL INFRC AFFECT 09/14/2015 SANDRA LUNDY MD Ot I69.398 OTHER SEQUELAE OF CEREBRAL INFARCTION 09/14/2015 SANDRA LUNDY MD Ot J44.9 CHRONIC OBSTRUCTIVE PULMONARY DISEASE, U 09/14/2015 SANDRA LUNDY MD Ot R26.2 DIFFICULTY IN WALKING, NOT ELSEWHERE CLA 09/14/2015 SANDRA LUNDY MD Ot S72.144S NONDISPLACED INTERTROCH FRACTURE OF [place] 09/14/2015 SANDRA LUNDY MD Ot W19.XXXS UNSPECIFIED FALL, SEQUELA 09/14/2015 SANDRA LUNDY MD Ot Z99.81 DEPENDENCE ON SUPPLEMENTAL OXYGEN 09/14/2015 SANDRA LUNDY MD Ot E78.0 PURE HYPERCHOLESTEROLEMIA 09/14/2015 SANDRA LUNDY MD Ot F17.210 NICOTINE DEPENDENCE, CIGARETTES, UNCOMPL 09/14/2015 SANDRA LUNDY MD Ot I10 ESSENTIAL (PRIMARY) HYPERTENSION 09/14/2015 SANDRA LUNDY MD Ot I69.354 HEMIPLGA FOLLOWING CEREBRAL INFRC AFFECT 09/14/2015 SANDRA LUNDY MD Ot I69.398 OTHER SEQUELAE OF CEREBRAL INFARCTION 09/14/2015 SANDRA LUNDY MD Ot J44.9 CHRONIC OBSTRUCTIVE PULMONARY DISEASE, U 09/14/2015 SANDRA LUNDY MD Ot R26.2 DIFFICULTY IN WALKING, NOT ELSEWHERE CLA 09/14/2015 SANDRA LUNDY MD Ot S72.144S NONDISPLACED INTERTROCH FRACTURE OF [place] 09/14/2015 SANDRA LUNDY MD Ot W19.XXXS UNSPECIFIED FALL, SEQUELA 09/14/2015 SANDRA LUNDY MD Ot Z99.81 DEPENDENCE ON SUPPLEMENTAL OXYGEN 09/19/2015 SANDRA LUNDY MD Ot E78.0 PURE HYPERCHOLESTEROLEMIA 09/19/2015 SANDRA LUNDY MD Ot F17.210 NICOTINE DEPENDENCE, CIGARETTES, UNCOMPL 09/19/2015 SANDRA LUNDY MD Ot I10 ESSENTIAL (PRIMARY) HYPERTENSION 09/19/2015 SADNRA LUNDY MD Ot I69.354 HEMIPLGA FOLLOWING CEREBRAL INFRC AFFECT 09/19/2015 SANDRA LUNDY MD Ot I69.398 OTHER SEQUELAE OF CEREBRAL INFARCTION 09/19/2015 SANDRA LUNDY MD Ot J44.9 CHRONIC OBSTRUCTIVE PULMONARY DISEASE, U 09/19/2015 SANDRA LUNDY MD Ot R26.2 DIFFICULTY IN WALKING, NOT ELSEWHERE CLA 09/19/2015 SANDRA LUNDY MD Ot S72.144S NONDISPLACED INTERTROCH FRACTURE OF [place] 09/19/2015 SANDRA LUNDY MD Ot W19.XXXS UNSPECIFIED FALL, SEQUELA 09/19/2015 SANDRA LUNDY MD Ot Z99.81 DEPENDENCE ON SUPPLEMENTAL OXYGEN 09/26/2015 SANDRA LUNDY MD Ot E78.0 PURE HYPERCHOLESTEROLEMIA 09/26/2015 SANDRA LUNDY MD Ot F17.210 NICOTINE DEPENDENCE, CIGARETTES, UNCOMPL 09/26/2015 SANDRA LUNDY MD Ot I10 ESSENTIAL (PRIMARY) HYPERTENSION 09/26/2015 SANDRA LUNDY MD Ot I69.354 HEMIPLGA FOLLOWING CEREBRAL INFRC AFFECT 09/26/2015 SANDRA LUNDY MD Ot I69.398 OTHER SEQUELAE OF CEREBRAL INFARCTION 09/26/2015 SANDRA LUNDY MD Ot J44.9 CHRONIC OBSTRUCTIVE PULMONARY DISEASE, U 09/26/2015 SANDRA LUNDY MD Ot R26.2 DIFFICULTY IN WALKING, NOT ELSEWHERE CLA 09/26/2015 SANDRA LUNDY MD Ot S72.144S NONDISPLACED INTERTROCH FRACTURE OF [place] 09/26/2015 SANDRA LUNDY MD Ot W19.XXXS UNSPECIFIED FALL, SEQUELA 09/26/2015 SANDRA LUNDY MD Ot Z99.81 DEPENDENCE ON SUPPLEMENTAL OXYGEN 09/26/2015 SANDRA LUNDY MD Ot E78.0 PURE HYPERCHOLESTEROLEMIA 09/26/2015 SANDRA LUNDY MD Ot F17.210 NICOTINE DEPENDENCE, CIGARETTES, UNCOMPL 09/26/2015 SANDRA LUNDY MD Ot I10 ESSENTIAL (PRIMARY) HYPERTENSION 09/26/2015 SANDRA LUNDY MD Ot I69.354 HEMIPLGA FOLLOWING CEREBRAL INFRC AFFECT 09/26/2015 SANDRA LUNDY MD Ot I69.398 OTHER SEQUELAE OF CEREBRAL INFARCTION 09/26/2015 SANDRA LUNDY MD Ot J44.9 CHRONIC OBSTRUCTIVE PULMONARY DISEASE, U 09/26/2015 SANDRA LUNDY MD Ot R26.2 DIFFICULTY IN WALKING, NOT ELSEWHERE CLA 09/26/2015 SANDRA LUNDY MD Ot S72.144S NONDISPLACED INTERTROCH FRACTURE OF [facility] 09/26/2015 SANDRA LUNDY MD Ot W19.XXXS UNSPECIFIED FALL, SEQUELA 09/26/2015 SANDRA LUNDY MD Ot Z99.81 DEPENDENCE ON SUPPLEMENTAL OXYGEN 10/03/2015 SANDRA LUNDY MD Ot E78.0 PURE HYPERCHOLESTEROLEMIA 10/03/2015 SANDRA LUNDY MD Ot F17.210 NICOTINE DEPENDENCE, CIGARETTES, UNCOMPL 10/03/2015 SANDRA LUNDY MD Ot I10 ESSENTIAL (PRIMARY) HYPERTENSION 10/03/2015 SANDRA LUNDY MD Ot I69.354 HEMIPLGA FOLLOWING CEREBRAL INFRC AFFECT 10/03/2015 SANDRA LUNDY MD E Ot I69.398 OTHER SEQUELAE OF CEREBRAL INFARCTION 10/03/2015 SANDRA LUNDY MD Ot J44.9 CHRONIC OBSTRUCTIVE PULMONARY DISEASE, U 10/03/2015 SANDRA LUNDY MD Ot R26.2 DIFFICULTY IN WALKING, NOT ELSEWHERE CLA 10/03/2015 SANDRA LUNDY MD Ot S72.144D NONDISP INTERTROCH FX R FEMUR, SUBS FOR 10/03/2015 SANDRA LUNDY MD Ot W19.XXXD UNSPECIFIED FALL, SUBSEQUENT ENCOUNTER 10/03/2015 SANDRA LUNDY MD Ot Z99.81 DEPENDENCE ON SUPPLEMENTAL OXYGEN 10/04/2015 SANDRA LUNDY MD Ot E78.0 PURE HYPERCHOLESTEROLEMIA 10/04/2015 SANDRA LUNDY MD Ot F17.210 NICOTINE DEPENDENCE, CIGARETTES, UNCOMPL 10/04/2015 SANDRA LUNDY MD Ot F43.21 ADJUSTMENT DISORDER WITH DEPRESSED MOOD 10/04/2015 SANDRA LUNDY MD Ot I10 ESSENTIAL (PRIMARY) HYPERTENSION 10/04/2015 SANDRA LUNDY MD Ot I69.354 HEMIPLGA FOLLOWING CEREBRAL INFRC AFFECT 10/04/2015 SANDRA LUNDY MD Ot I69.398 OTHER SEQUELAE OF CEREBRAL INFARCTION 10/04/2015 SANDRA LUNDY MD Ot J44.9 CHRONIC OBSTRUCTIVE PULMONARY DISEASE, U 10/04/2015 SANDRA LUNDY MD Ot K59.00 CONSTIPATION, UNSPECIFIED 10/04/2015 SANDRA LUNDY MD Ot M79.661 PAIN IN RIGHT LOWER LEG 10/04/2015 SANDRA LUNDY MD Ot R26.2 DIFFICULTY IN WALKING, NOT ELSEWHERE CLA 10/04/2015 SANDRA LUNDY MD Ot S72.144D NONDISP INTERTROCH FX R FEMUR, SUBS FOR 10/04/2015 SANDRA LUNDY MD Ot W19.XXXD UNSPECIFIED FALL, SUBSEQUENT ENCOUNTER 10/04/2015 SANDRA LUNDY MD Ot Z99.81 DEPENDENCE ON SUPPLEMENTAL OXYGEN 01/28/2016 YOLANDA DOYLE DO Ot F17.210 NICOTINE DEPENDENCE, CIGARETTES, UNCOMPL 01/28/2016 YOLANDA DOYLE DO Ot I51.7 CARDIOMEGALY 01/28/2016 YOLANDA DOYLE DO Ot J44.9 CHRONIC OBSTRUCTIVE PULMONARY DISEASE, U 01/28/2016 YOLANDA DOYLE DO Ot R53.1 WEAKNESS 01/28/2016 YOLANDA DOYLE DO Ot 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 01/28/2016 YOLANDA DOYLE DO Ot Z79.899 OTHER [facility] (CURRENT) DRUG THERAPY 01/30/2016 Ot 305.1 TOBACCO USE DISORDER 01/30/2016 Ot 443.9 PERIPH VASCULAR DIS NOS 01/30/2016 Ot 585.3 CHRONIC KIDNEY DISEASE, STAGE III (MODER 01/30/2016 Ot 611.1 HYPERTROPHY OF BREAST 01/30/2016 Ot V58.63 LONG-TERM( CURRENT)USE OF ANTIPLATELET/AN 01/30/2016 Ot V58.69 OTH MED,LT, CURRENT USE 01/30/2016 Ot 174.9 MALIGN NEOPL BREAST NOS 01/30/2016 Ot V76.11 SCRN MAMMO- HIGH RISK PT, MALIGNANT NEOPL 01/30/2016 Ot 305.1 TOBACCO USE DISORDER 01/30/2016 Ot 433.30 MULT BILTRAL ARTERY OCCLUSION WO CEREBRA 01/30/2016 Ot 785.9 CARDIOVAS SYS SYMP NEC 01/30/2016 Ot 786.09 RESPIRATORY ABNORM NEC 01/30/2016 Ot 305.1 TOBACCO USE DISORDER 01/30/2016 Ot 786.09 RESPIRATORY ABNORM NEC 01/30/2016 Ot 305.1 TOBACCO USE DISORDER 01/30/2016 Ot 443.9 PERIPH VASCULAR DIS NOS 01/30/2016 Ot 585.3 CHRONIC KIDNEY DISEASE, STAGE III (MODER 01/30/2016 Ot 611.1 HYPERTROPHY OF BREAST 01/30/2016 Ot V58.63 LONG-TERM( CURRENT)USE OF ANTIPLATELET/AN 01/30/2016 Ot V58.69 OTH MED,LT, CURRENT USE 01/30/2016 Ot 174.9 MALIGN NEOPL BREAST NOS 01/30/2016 Ot V76.11 SCRN MAMMO- HIGH RISK PT, MALIGNANT NEOPL 01/30/2016 Ot 784.0 HEADACHE 01/30/2016 Ot 397.0 TRICUSPID VALVE DISEASE 01/30/2016 Ot 414.00 CORON ATHEROSCLER NOS TYPE VESSEL, NATIV 01/30/2016 Ot 424.0 MITRAL VALVE DISORDER 01/30/2016 Ot 786.09 RESPIRATORY ABNORM NEC 01/30/2016 Ot 722.52 LUMB/ LUMBOSAC DISC DEGEN 01/30/2016 JOANA MARTELL Ot 174.9 MALIGN NEOPL BREAST NOS 01/30/2016 JOANA MARTELL Ot V76.12 OT SCREEN MAMMO-MALIGN NEOPLASM OF MARYBETH 01/30/2016 JANI DUNLAP Ot J18.9 PNEUMONIA, UNSPECIFIED ORGANISM 01/30/2016 DANIELLEBogdanJANI CAMEJO PHYSICIAN ASSISTANT CERTIFIED Ot J44.9 CHRONIC OBSTRUCTIVE PULMONARY DISEASE, U 01/30/2016 Ot 433.10 CAROTID ARTERY OCCLUSION W O CEREBRAL IN 01/30/2016 Ot V72.63 PRE- PROCEDURAL LABORATORY EXAMINATION 01/30/2016 Ot V74.8 SCREEN- BACTERIAL DIS NEC 01/30/2016 CATRACHO RAE, AMANDA Diallo Ot 272.4 HYPERLIPIDEMIA NEC/NOS 01/30/2016 CATRACHO RAE, AMANDA Diallo Ot 401.9 HYPERTENSION NOS 01/30/2016 CATRACHO RAE, AMANDA Diallo Ot 414.00 CORON ATHEROSCLER NOS TYPE VESSEL, NATIV 01/30/2016 CATRACHO RAE, AMANDA Diallo Ot 443.9 PERIPH VASCULAR DIS NOS 01/30/2016 AMANDA HAYDEN MD Ot 272.4 HYPERLIPIDEMIA NEC/NOS 01/30/2016 CATRACHO RAE, AMANDA Diallo Ot 401.9 HYPERTENSION NOS 01/30/2016 CATRACHO REA, AMANDA Diallo Ot 414.00 CORON ATHEROSCLER NOS TYPE VESSEL, NATIV 01/30/2016 CATRACHO RAE, AMANDA Diallo Ot 443.9 PERIPH VASCULAR DIS NOS 01/30/2016 MIRNA DAN PHYSICIAN ASSISTANT CERTIFIED Ot 719.41 JOINT PAIN-SHLDER 01/31/2016 ELI PEARSON DOQUELINE S Ot R53.1 WEAKNESS 01/31/2016 ELI PEARSON DOQUELINE S Ot Z86.73 PRSNL HX OF TIA (TIA), AND CEREB INFRC W 02/03/2016 ELI PEARSON DOQUELINE S Ot D64.9 ANEMIA, UNSPECIFIED 02/03/2016 MICHEL MONCADA KELSIE S Ot F17.210 NICOTINE DEPENDENCE, CIGARETTES, UNCOMPL 02/03/2016 MICHEL MONCADA KELSIE S Ot F41.9 ANXIETY DISORDER, UNSPECIFIED 02/03/2016 CHARLENENDDOLORES MONCADA KELSIE S Ot G40.909 EPILEPSY, UNSP, NOT INTRACTABLE, WITHOUT 02/03/2016 CHARLENENDDOLORES MONCADA KELSIE S Ot G45.1 CAROTID ARTERY SYNDROME (HEMISPHERIC) 02/03/2016 ELI PEARSON DOQUELINE S Ot I10 ESSENTIAL (PRIMARY) HYPERTENSION 02/03/2016 NEHEMIAS PEARSON DOLINE S Ot I69.354 HEMIPLGA FOLLOWING CEREBRAL INFRC AFFECT 02/03/2016 NEHEMIAS PEARSON DOLINE S Ot J44.9 CHRONIC OBSTRUCTIVE PULMONARY DISEASE, U 02/03/2016 CHARLENENDER NEHEMIAS MONCADALINE S Ot K21.9 GASTRO-ESOPHAGEAL REFLUX DISEASE WITHOUT 02/20/2016 ORENDER DOELIKELSIE S Ot R53.1 WEAKNESS 02/20/2016 ORENDER DOELIKELSIE S Ot Z86.73 PRSNL HX OF TIA (TIA), AND CEREB INFRC W 02/28/2016 ORENDER DO KELSIE S Ot R53.1 WEAKNESS 02/28/2016 ORENDER DO, KELSIE S Ot Z86.73 PRSNL HX OF TIA (TIA), AND CEREB INFRC W 05/08/2016 CHARLNEENDER DONEHEMIASKELSIE S Ot D64.9 ANEMIA, UNSPECIFIED 05/31/2016 CHARLENENDER DO, KELSIE S Ot D62 ACUTE POSTHEMORRHAGIC ANEMIA 05/31/2016 CHARLENENDER NEHEMIAS MONCADALINE S Ot D64.9 ANEMIA, UNSPECIFIED 05/31/2016 CHARLENENDER NEHEMIAS MONCADALINE S Ot F17.210 NICOTINE DEPENDENCE, CIGARETTES, UNCOMPL 05/31/2016 CHARLENENDER DOELIKELSIE S Ot F41.9 ANXIETY DISORDER, UNSPECIFIED 05/31/2016 CHARLENENDER NEHEMIAS MONCADALINE S Ot G40.909 EPILEPSY, UNSP, NOT INTRACTABLE, WITHOUT 05/31/2016 CHARLENENDER DO, KELSIE S Ot H40.9 UNSPECIFIED GLAUCOMA 05/31/2016 CHARLENENDER ELI MONCADAKELSIE S Ot I10 ESSENTIAL (PRIMARY) HYPERTENSION 05/31/2016 CHARLENENDELI BERNAL DOQUELINE S Ot I69.354 HEMIPLGA FOLLOWING CEREBRAL INFRC AFFECT 05/31/2016 CHARLENENDER DOELIKELSIE S Ot I73.9 PERIPHERAL VASCULAR DISEASE, UNSPECIFIED 05/31/2016 CHARLENENDER ELI MONCADAKELSIE S Ot J44.9 CHRONIC OBSTRUCTIVE PULMONARY DISEASE, U 05/31/2016 CHARLENENDER ELI MONCADAKELSIE S Ot K21.9 GASTRO-ESOPHAGEAL REFLUX DISEASE WITHOUT 05/31/2016 CHARLENENDER ELI MONCADAKELSIE S Ot K59.09 OTHER CONSTIPATION 05/31/2016 CHARLENENDER ELI MONCADAKELSIE S Ot M19.91 PRIMARY OSTEOARTHRITIS, UNSPECIFIED SITE 05/31/2016 CHARLENEKELSIE GONSALEZ DO Ot M54.9 DORSALGIA, UNSPECIFIED 05/31/2016 KELSIE PEARSON DO Ot M79.7 FIBROMYALGIA 05/31/2016 KELSIE PEARSON DO Ot R32 UNSPECIFIED URINARY INCONTINENCE 05/31/2016 KELSIE PEARSON DO Ot R41.0 DISORIENTATION, UNSPECIFIED 05/31/2016 KELSIE PEARSON DO Ot S72.142A DISPLACED INTERTROCHANTERIC FRACTURE OF 05/31/2016 KELSIE PEARSON DO Ot W19.XXXA UNSPECIFIED FALL, INITIAL ENCOUNTER 05/31/2016 KELSIE PEARSON DO S Ot Y92.[address] IN [facility] 05/31/2016 KELSIE PEARSON DO Ot Z85.3 PERSONAL HISTORY OF MALIGNANT NEOPLASM O 05/31/2016 KELSIE PEARSON DO S Ot D62 ACUTE POSTHEMORRHAGIC ANEMIA 05/31/2016 KELSIE PEARSON DO Ot D64.9 ANEMIA, UNSPECIFIED 05/31/2016 KELSIE PEARSON DO S Ot F17.210 NICOTINE DEPENDENCE, CIGARETTES, UNCOMPL 05/31/2016 KELSIE PEARSON DO S Ot F41.9 ANXIETY DISORDER, UNSPECIFIED 05/31/2016 KELSIE PEARSON DO S Ot G40.909 EPILEPSY, UNSP, NOT INTRACTABLE, WITHOUT 05/31/2016 KELSIE PEARSON DO S Ot H40.9 UNSPECIFIED GLAUCOMA 05/31/2016 KELSIE PEARSON DO S Ot I10 ESSENTIAL (PRIMARY) HYPERTENSION 05/31/2016 KELSIE PEARSON DO S Ot I69.354 HEMIPLGA FOLLOWING CEREBRAL INFRC AFFECT 05/31/2016 KELSIE PEARSON DO S Ot I73.9 PERIPHERAL VASCULAR DISEASE, UNSPECIFIED 05/31/2016 KELSIE PEARSON DO S Ot J44.9 CHRONIC OBSTRUCTIVE PULMONARY DISEASE, U 05/31/2016 KELSIE PEARSON DO S Ot K21.9 GASTRO-ESOPHAGEAL REFLUX DISEASE WITHOUT 05/31/2016 KELSIE PEARSON DO S Ot K59.09 OTHER CONSTIPATION 05/31/2016 KELSIE PEARSON DO S Ot M19.91 PRIMARY OSTEOARTHRITIS, UNSPECIFIED SITE 05/31/2016 CHARLENENDER DO, KELSIE S Ot M54.9 DORSALGIA, UNSPECIFIED 05/31/2016 ORENDER DO, KELSIE S Ot M79.7 FIBROMYALGIA 05/31/2016 CHARLENENDER DO, KELSIE S Ot R32 UNSPECIFIED URINARY INCONTINENCE 05/31/2016 CHARLENENDER DO, KELSIE S Ot R41.0 DISORIENTATION, UNSPECIFIED 05/31/2016 ORENDER DO, KELSIE S Ot S72.142A DISPLACED INTERTROCHANTERIC FRACTURE OF 05/31/2016 CHARLENENDER DO, KELSIE S Ot W19.XXXA UNSPECIFIED FALL, INITIAL ENCOUNTER 05/31/2016 CHARLENENDER NEHEMIAS MONCADALINE S Ot Y92.009 [facility] PL[facility] IN [facility] (PRIVATE 05/31/2016 ORENDER DO, KELSIE S Ot Y99.8 OTHER EXTERNAL CAUSE STATUS 05/31/2016 CHARLENENDER DO, KELSIE S Ot Z85.3 PERSONAL HISTORY OF MALIGNANT NEOPLASM O 06/10/2016 CHARLENENDER DO, KELSIE S Ot D64.9 ANEMIA, UNSPECIFIED 06/10/2016 ORENDER DO, KELSIE S Ot D64.9 ANEMIA, UNSPECIFIED 07/02/2016 ORENDER DO, KELSIE S Ot D64.9 ANEMIA, UNSPECIFIED 07/02/2016 ORENDER DO, KELSIE S Ot D64.9 ANEMIA, UNSPECIFIED 07/18/2016 ORENDER DO, KELSIE S Ot D64.9 ANEMIA, UNSPECIFIED 07/25/2016 ALISA RAE, RAFIQ Hines Ot D50.0 IRON DEFICIENCY ANEMIA SECONDARY TO BLOO 07/25/2016 ALISA RAE, RAFIQ Hines Ot F17.210 NICOTINE DEPENDENCE, CIGARETTES, UNCOMPL 07/25/2016 ALISA RAE, RAFIQ Hines Ot G40.909 EPILEPSY, UNSP, NOT INTRACTABLE, WITHOUT 07/25/2016 ALISA RAE, RAFIQ Hines Ot I10 ESSENTIAL (PRIMARY) HYPERTENSION 07/25/2016 ALISA RAE, RAFIQ Hines Ot 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 07/25/2016 ALISA RAE, RAFIQ Hines Ot J44.9 CHRONIC OBSTRUCTIVE PULMONARY DISEASE, U 07/25/2016 ALISA RAE, RAFIQ Hines Ot K22.2 ESOPHAGEAL OBSTRUCTION 07/25/2016 RAFIQ CUELLAR MD Ot K29.70 GASTRITIS, UNSPECIFIED, WITHOUT BLEEDING 07/25/2016 RAFIQ CUELLAR MD Ot K29.80 DUODENITIS WITHOUT BLEEDING 07/25/2016 RAFIQ CUELLAR MD Ot Z79.02 SALES AND MARKETING DIRECTOR (CURRENT) USE OF ANTITHROMBOTI 07/25/2016 RAFIQ CUELLAR MD Ot 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 07/25/2016 RAFIQ CUELLAR MD Ot Z79.899 OTHER [facility] (CURRENT) DRUG THERAPY 07/25/2016 RAFIQ CUELLAR MD, Ot Z87.11 PERSONAL HISTORY OF PEPTIC ULCER DISEASE 07/25/2016 RAFIQ CUELLAR MD Ot Z98.890 OTHER SPECIFIED POSTPROCEDURAL STATES 07/26/2016 RAFIQ CUELLAR MD Ot D50.0 IRON DEFICIENCY ANEMIA SECONDARY TO BLOO 07/26/2016 RAFIQ CUELLAR MD Ot F17.210 NICOTINE DEPENDENCE, CIGARETTES, UNCOMPL 07/26/2016 RAFIQ CUELLAR MD Ot G40.909 EPILEPSY, UNSP, NOT INTRACTABLE, WITHOUT 07/26/2016 RAFIQ CUELLAR MD Ot I10 ESSENTIAL (PRIMARY) HYPERTENSION 07/26/2016 RAFIQ CUELLAR MD Ot 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 07/26/2016 RAFIQ CUELLAR MD Ot J44.9 CHRONIC OBSTRUCTIVE PULMONARY DISEASE, U 07/26/2016 RAFIQ CUELLAR MD Ot K22.2 ESOPHAGEAL OBSTRUCTION 07/26/2016 RAFIQ CUELLAR MD Ot K29.70 GASTRITIS, UNSPECIFIED, WITHOUT BLEEDING 07/26/2016 RAFIQ CUELLAR MD Ot K29.80 DUODENITIS WITHOUT BLEEDING 07/26/2016 RAFIQ CUELLAR MD Ot Z79.02 SALES AND MARKETING DIRECTOR (CURRENT) USE OF ANTITHROMBOTI 07/26/2016 RAFIQ CUELLAR MD Ot 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 07/26/2016 RAFIQ CUELLAR MD Ot Z79.899 OTHER SALES AND MARKETING DIRECTOR (CURRENT) DRUG THERAPY 07/26/2016 RAFIQ CUELLAR MD Ot Z87.11 PERSONAL HISTORY OF PEPTIC ULCER DISEASE 07/26/2016 RAFIQ CUELLAR MD, Ot Z98.890 OTHER SPECIFIED POSTPROCEDURAL STATES 07/26/2016 RAFIQ CUELLAR MD Ot D50.0 IRON DEFICIENCY ANEMIA SECONDARY TO BLOO 07/26/2016 RAFIQ CUELLAR MD Ot F17.210 NICOTINE DEPENDENCE, CIGARETTES, UNCOMPL 07/26/2016 RAFIQ CUELLAR MD Ot G40.909 EPILEPSY, UNSP, NOT INTRACTABLE, WITHOUT 07/26/2016 RAFIQ CUELLAR MD Ot I10 ESSENTIAL (PRIMARY) HYPERTENSION 07/26/2016 RAFIQ CUELLAR MD Ot 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 07/26/2016 RAFIQ CUELLAR MD, Ot J44.9 CHRONIC OBSTRUCTIVE PULMONARY DISEASE, U 07/26/2016 RAFIQ CUELLAR MD Ot K22.2 ESOPHAGEAL OBSTRUCTION 07/26/2016 RAFIQ CUELLAR MD Ot K29.70 GASTRITIS, UNSPECIFIED, WITHOUT BLEEDING 07/26/2016 RAFIQ CUELLAR MD Ot K29.80 DUODENITIS WITHOUT BLEEDING 07/26/2016 RAFIQ CUELLAR MD Ot Z79.02 [facility] (CURRENT) USE OF ANTITHROMBOTI 07/26/2016 RAFIQ CUELLAR MD Ot Z79.82 [facility] (CURRENT) USE OF ASPIRIN 07/26/2016 RAFIQ CUELLAR MD Ot Z79.899 OTHER SALES AND MARKETING DIRECTOR (CURRENT) DRUG THERAPY 07/26/2016 RAFIQ CUELLAR MD Ot Z87.11 PERSONAL HISTORY OF PEPTIC ULCER DISEASE 07/26/2016 RAFIQ CUELLAR MD Ot Z98.890 OTHER SPECIFIED POSTPROCEDURAL STATES 07/31/2016 RAFIQ CUELLAR MD Ot D50.0 IRON DEFICIENCY ANEMIA SECONDARY TO BLOO 07/31/2016 RAFIQ CUELLAR MD Ot F17.210 NICOTINE DEPENDENCE, CIGARETTES, UNCOMPL 07/31/2016 RAFIQ CUELLAR MD Ot G40.909 EPILEPSY, UNSP, NOT INTRACTABLE, WITHOUT 07/31/2016 RAFIQ CUELLAR MD Ot I10 ESSENTIAL (PRIMARY) HYPERTENSION 07/31/2016 RAFIQ CUELLAR MD Ot 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 07/31/2016 RAFIQ CUELLAR MD Ot J44.9 CHRONIC OBSTRUCTIVE PULMONARY DISEASE, U 07/31/2016 RAFIQ CUELLAR MD Ot K22.2 ESOPHAGEAL OBSTRUCTION 07/31/2016 RAFIQ CUELLAR MD, Ot K29.70 GASTRITIS, UNSPECIFIED, WITHOUT BLEEDING 07/31/2016 RAFIQ CUELLAR MD, Ot K29.80 DUODENITIS WITHOUT BLEEDING 07/31/2016 RAFIQ CUELLAR MD Ot Z79.02 [facility] (CURRENT) USE OF ANTITHROMBOTI 07/31/2016 RAFIQ CUELLAR MD Ot 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 07/31/2016 RAFIQ CUELLAR MD, Ot Z79.899 OTHER [facility] (CURRENT) DRUG THERAPY 07/31/2016 RAFIQ CUELLAR MD, Ot Z87.11 PERSONAL HISTORY OF PEPTIC ULCER DISEASE 07/31/2016 RAFIQ CUELLAR MD Ot Z98.890 OTHER SPECIFIED POSTPROCEDURAL STATES 07/31/2016 RAFIQ CUELLAR MD, Ot D50.9 IRON DEFICIENCY ANEMIA, UNSPECIFIED 07/31/2016 RAFIQ CUELLAR MD Ot K57.90 DVRTCLOS OF INTEST, PART UNSP, W/O PERF 07/31/2016 RAFIQ CUELLAR MD Ot K64.4 RESIDUAL HEMORRHOIDAL SKIN TAGS 07/31/2016 RAFIQ CUELLAR MD Ot K92.2 GASTROINTESTINAL HEMORRHAGE, UNSPECIFIED 07/31/2016 RAFIQ CUELLAR MD Ot Z86.010 PERSONAL HISTORY OF COLONIC POLYPS 08/01/2016 RAFIQ CUELLAR MD Ot D50.9 IRON DEFICIENCY ANEMIA, UNSPECIFIED 08/01/2016 RAFIQ CUELLAR MD Ot K57.90 DVRTCLOS OF INTEST, PART UNSP, W/O PERF 08/01/2016 RAFIQ CUELLAR MD Ot K64.4 RESIDUAL HEMORRHOIDAL SKIN TAGS 08/01/2016 RAFIQ CUELLAR MD Ot K92.2 GASTROINTESTINAL HEMORRHAGE, UNSPECIFIED 08/01/2016 RAFIQ CUELLAR MD Ot Z86.010 PERSONAL HISTORY OF COLONIC POLYPS 08/02/2016 ORENDER DO, KELSIE S Ot D64.9 ANEMIA, UNSPECIFIED 08/03/2016 ORENDER DO, KELSIE S Ot D64.9 ANEMIA, UNSPECIFIED 08/05/2016 ORENDER DO, KELSIE S Ot D64.9 ANEMIA, UNSPECIFIED 08/08/2016 RAFIQ CUELLAR MD, Ot D50.0 IRON DEFICIENCY ANEMIA SECONDARY TO BLOO 08/08/2016 RAFIQ CUELLAR MD Ot F17.210 NICOTINE DEPENDENCE, CIGARETTES, UNCOMPL 08/08/2016 RAFIQ CUELLAR MD Ot G40.909 EPILEPSY, UNSP, NOT INTRACTABLE, WITHOUT 08/08/2016 RAFIQ CUELLAR MD Ot I10 ESSENTIAL (PRIMARY) HYPERTENSION 08/08/2016 RAFIQ CUELLAR MD Ot 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 08/08/2016 RAFIQ CUELLAR MD Ot J44.9 CHRONIC OBSTRUCTIVE PULMONARY DISEASE, U 08/08/2016 RAFIQ CUELLAR MD Ot K22.2 ESOPHAGEAL OBSTRUCTION 08/08/2016 RAFIQ CUELLAR MD, Ot K29.70 GASTRITIS, UNSPECIFIED, WITHOUT BLEEDING 08/08/2016 RAFIQ CUELLAR MD Ot K29.80 DUODENITIS WITHOUT BLEEDING 08/08/2016 RAFIQ CUELLAR MD Ot Z79.02 [facility] (CURRENT) USE OF ANTITHROMBOTI 08/08/2016 RAFIQ CUELLAR MD Ot 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 08/08/2016 RAFIQ CUELLAR MD, Ot Z79.899 OTHER [facility] (CURRENT) DRUG THERAPY 08/08/2016 RAFIQ CUELLAR MD Ot Z87.11 PERSONAL HISTORY OF PEPTIC ULCER DISEASE 08/08/2016 RAFIQ CUELLAR MD Ot Z98.890 OTHER SPECIFIED POSTPROCEDURAL STATES 08/22/2016 KELSIE PEARSON DO Ot D64.9 ANEMIA, UNSPECIFIED 08/28/2016 RAFIQ CUELLAR MD, Ot D50.9 IRON DEFICIENCY ANEMIA, UNSPECIFIED 08/28/2016 RAFIQ CUELLAR MD Ot K57.90 DVRTCLOS OF INTEST, PART UNSP, W/O PERF 08/28/2016 RAFIQ CUELLAR MD Ot K64.4 RESIDUAL HEMORRHOIDAL SKIN TAGS 08/28/2016 RAFIQ CUELLAR MD Ot K92.2 GASTROINTESTINAL HEMORRHAGE, UNSPECIFIED 08/28/2016 RAFIQ CUELLAR MD Ot Z86.010 PERSONAL HISTORY OF COLONIC POLYPS 09/02/2016 KELSIE PEARSON DO Ot D64.9 ANEMIA, UNSPECIFIED 09/02/2016 ALISA RAE, RAFIQ Hines Ot D50.0 IRON DEFICIENCY ANEMIA SECONDARY TO BLOO 09/02/2016 ALISA RAE, RAFIQ Hines Ot F17.210 NICOTINE DEPENDENCE, CIGARETTES, UNCOMPL 09/02/2016 ALISA RAE, RAFIQ Hines Ot G40.909 EPILEPSY, UNSP, NOT INTRACTABLE, WITHOUT 09/02/2016 RAFIQ CUELLAR MD Ot I10 ESSENTIAL (PRIMARY) HYPERTENSION 09/02/2016 ALISA RAE, RAFIQ Hines Ot 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 09/02/2016 RAFIQ CUELLAR MD Ot J44.9 CHRONIC OBSTRUCTIVE PULMONARY DISEASE, U 09/02/2016 RAFIQ CUELLAR MD Ot K22.2 ESOPHAGEAL OBSTRUCTION 09/02/2016 RAFIQ CUELLAR MD Ot K29.70 GASTRITIS, UNSPECIFIED, WITHOUT BLEEDING 09/02/2016 RAFIQ CUELLAR MD Ot K29.80 DUODENITIS WITHOUT BLEEDING 09/02/2016 RAFIQ CUELLAR MD Ot Z79.02 [facility] (CURRENT) USE OF ANTITHROMBOTI 09/02/2016 RAFIQ CUELLAR MD Ot 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 09/02/2016 RAFIQ CUELLAR MD Ot Z79.899 OTHER SALES AND MARKETING DIRECTOR (CURRENT) DRUG THERAPY 09/02/2016 RAFIQ CUELLAR MD Ot Z87.11 PERSONAL HISTORY OF PEPTIC ULCER DISEASE 09/02/2016 RAFIQ CUELLAR MD Ot Z98.890 OTHER SPECIFIED POSTPROCEDURAL STATES 09/25/2016 KELSIE PEARSON DO Ot D64.9 ANEMIA, UNSPECIFIED 10/01/2016 Ot 305.1 TOBACCO USE DISORDER 10/01/2016 Ot 433.30 MULT BILTRAL ARTERY OCCLUSION WO CEREBRA 10/01/2016 Ot 785.9 CARDIOVAS SYS SYMP NEC 10/01/2016 Ot 786.09 RESPIRATORY ABNORM NEC 10/01/2016 Ot 305.1 TOBACCO USE DISORDER 10/01/2016 Ot 786.09 RESPIRATORY ABNORM NEC 10/01/2016 Ot 305.1 TOBACCO USE DISORDER 10/01/2016 Ot 443.9 PERIPH VASCULAR DIS NOS 10/01/2016 Ot 585.3 CHRONIC KIDNEY DISEASE, STAGE III (MODER 10/01/2016 Ot 611.1 HYPERTROPHY OF BREAST 10/01/2016 Ot V58.63 LONG-TERM( CURRENT)USE OF ANTIPLATELET/AN 10/01/2016 Ot V58.69 OTH MED,LT, CURRENT USE 10/01/2016 Ot 174.9 MALIGN NEOPL BREAST NOS 10/01/2016 Ot V76.11 SCRN MAMMO- HIGH RISK PT, MALIGNANT NEOPL 10/01/2016 Ot 784.0 HEADACHE 10/01/2016 Ot 397.0 TRICUSPID VALVE DISEASE 10/01/2016 Ot 414.00 CORON ATHEROSCLER NOS TYPE VESSEL, NATIV 10/01/2016 Ot 424.0 MITRAL VALVE DISORDER 10/01/2016 Ot 786.09 RESPIRATORY ABNORM NEC 10/01/2016 Ot 722.52 LUMB/ LUMBOSAC DISC DEGEN 10/01/2016 JOANA MARTELL Ot 174.9 MALIGN NEOPL BREAST NOS 10/01/2016 JOANA MARTELL Ot V76.12 OTH SCREEN MAMMO-MALIGN NEOPLASM OF [place] 10/01/2016 JANI DUNLAP Ot J18.9 PNEUMONIA, UNSPECIFIED ORGANISM 10/01/2016 JANI DUNLAP Ot J44.9 CHRONIC OBSTRUCTIVE PULMONARY DISEASE, U 10/01/2016 Ot 433.10 CAROTID ARTERY OCCLUSION W O CEREBRAL IN 10/01/2016 Ot V72.63 PRE- PROCEDURAL LABORATORY EXAMINATION 10/01/2016 Ot V74.8 SCREEN- BACTERIAL DIS NEC 10/01/2016 AMANDA HAYDEN MD Ot 272.4 HYPERLIPIDEMIA NEC/NOS 10/01/2016 AMANDA HAYDEN MD Ot 401.9 HYPERTENSION NOS 10/01/2016 AMANDA HAYDEN MD Ot 414.00 CORON ATHEROSCLER NOS TYPE VESSEL, NATIV 10/01/2016 AMANDA HAYDEN MD Ot 443.9 PERIPH VASCULAR DIS NOS 10/01/2016 AMANDA HAYDEN MD Ot 272.4 HYPERLIPIDEMIA NEC/NOS 10/01/2016 AMANDA HAYDEN MD Ot 401.9 HYPERTENSION NOS 10/01/2016 AMANDA HAYDEN MD Ot 414.00 CORON ATHEROSCLER NOS TYPE VESSEL, NATIV 10/01/2016 AMANDA HAYDEN MD Ot 443.9 PERIPH VASCULAR DIS NOS 10/01/2016 VANBECELAERE, MIRNA M PHYSICIAN ASSISTANT CERTIFIED Ot 719.41 JOINT PAIN-SHLDER 10/01/2016 KELSIE PEARSON DO Ot R53.1 WEAKNESS 10/01/2016 KELSIE PEARSON DO Ot Z86.73 PRSNL HX OF TIA (TIA), AND CEREB INFRC W 10/01/2016 KELSIE PEARSON DO Ot D64.9 ANEMIA, UNSPECIFIED 10/01/2016 KELSIE PEARSON DO Ot D64.9 ANEMIA, UNSPECIFIED 10/01/2016 Ot K92.2 GASTROINTESTINAL HEMORRHAGE, UNSPECIFIED 10/01/2016 Ot Z01.818 ENCOUNTER FOR OTHER PREPROCEDURAL EXAMIN 10/01/2016 Ot Z86.010 PERSONAL HISTORY OF COLONIC POLYPS 10/01/2016 KELSIE PEARSON DO Ot D64.9 ANEMIA, UNSPECIFIED 10/04/2016 KELSIE PEARSON DO Ot D64.9 ANEMIA, UNSPECIFIED 10/04/2016 KELSIE PEARSON DO Ot D64.9 ANEMIA, UNSPECIFIED 11/20/2016 KELSIE PEARSON DO Ot R05 COUGH 11/21/2016 Ot 305.1 TOBACCO USE DISORDER 11/21/2016 Ot 433.30 MULT BILTRAL ARTERY OCCLUSION WO CEREBRA 11/21/2016 Ot 785.9 CARDIOVAS SYS SYMP NEC 11/21/2016 Ot 786.09 RESPIRATORY ABNORM NEC 11/21/2016 Ot 305.1 TOBACCO USE DISORDER 11/21/2016 Ot 786.09 RESPIRATORY ABNORM NEC 11/21/2016 Ot 305.1 TOBACCO USE DISORDER 11/21/2016 Ot 443.9 PERIPH VASCULAR DIS NOS 11/21/2016 Ot 585.3 CHRONIC KIDNEY DISEASE, STAGE III (MODER 11/21/2016 Ot 611.1 HYPERTROPHY OF BREAST 11/21/2016 Ot V58.63 LONG-TERM( CURRENT)USE OF ANTIPLATELET/AN 11/21/2016 Ot V58.69 OTH MED,LT, CURRENT USE 11/21/2016 Ot 174.9 MALIGN NEOPL BREAST NOS 11/21/2016 Ot V76.11 SCRN MAMMO- HIGH RISK PT, MALIGNANT NEOPL 11/21/2016 Ot 784.0 HEADACHE 11/21/2016 Ot 397.0 TRICUSPID VALVE DISEASE 11/21/2016 Ot 414.00 CORON ATHEROSCLER NOS TYPE VESSEL, NATIV 11/21/2016 Ot 424.0 MITRAL VALVE DISORDER 11/21/2016 Ot 786.09 RESPIRATORY ABNORM NEC 11/21/2016 Ot 722.52 LUMB/ LUMBOSAC DISC DEGEN 11/21/2016 JASBIR LEANAMARIYA Galen Ot 174.9 MALIGN NEOPL BREAST NOS 11/21/2016 JOANA MARTELL Galen Ot V76.12 OTH SCREEN MAMMO-MALIGN NEOPLASM OF [place] 11/21/2016 JANI DUNLAP Ot J18.9 PNEUMONIA, UNSPECIFIED ORGANISM 11/21/2016 JANI DUNLAP Ot J44.9 CHRONIC OBSTRUCTIVE PULMONARY DISEASE, U 11/21/2016 Ot 433.10 CAROTID ARTERY OCCLUSION W O CEREBRAL IN 11/21/2016 Ot V72.63 PRE- PROCEDURAL LABORATORY EXAMINATION 11/21/2016 Ot V74.8 SCREEN- BACTERIAL DIS NEC 11/21/2016 CATRACHO RAE, AMANDA Diallo Ot 272.4 HYPERLIPIDEMIA NEC/NOS 11/21/2016 AMANDA HAYDEN MD Ot 401.9 HYPERTENSION NOS 11/21/2016 CATRACHO RAE, AMANDA Diallo Ot 414.00 CORON ATHEROSCLER NOS TYPE VESSEL, NATIV 11/21/2016 AMANDA HAYDEN MD Ot 443.9 PERIPH VASCULAR DIS NOS 11/21/2016 AMANDA HAYDEN MD Ot 272.4 HYPERLIPIDEMIA NEC/NOS 11/21/2016 CATRACHO RAE, AMANDA Diallo Ot 401.9 HYPERTENSION NOS 11/21/2016 AMANDA HAYDEN MD Ot 414.00 CORON ATHEROSCLER NOS TYPE VESSEL, NATIV 11/21/2016 AMANDA HAYDEN MD Ot 443.9 PERIPH VASCULAR DIS NOS 11/21/2016 MIRNA DAN Ot 719.41 JOINT PAIN-SHLDER 11/21/2016 KELSIE PEARSON DO S Ot R53.1 WEAKNESS 11/21/2016 KELSIE PEARSON DO S Ot Z86.73 PRSNL HX OF TIA (TIA), AND CEREB INFRC W 11/21/2016 KELSIE PEARSON DO S Ot D64.9 ANEMIA, UNSPECIFIED 11/21/2016 KELSIE PEARSON DO S Ot D64.9 ANEMIA, UNSPECIFIED 11/21/2016 Ot K92.2 GASTROINTESTINAL HEMORRHAGE, UNSPECIFIED 11/21/2016 Ot Z01.818 ENCOUNTER FOR OTHER PREPROCEDURAL EXAMIN 11/21/2016 Ot Z86.010 PERSONAL HISTORY OF COLONIC POLYPS 11/21/2016 ORENDER DO, KELSIE S Ot D64.9 ANEMIA, UNSPECIFIED 11/21/2016 ORENDER DO, KELSIE S Ot R05 COUGH 11/25/2016 ORENDER DO, KELSIE S Ot R01.1 CARDIAC MURMUR, UNSPECIFIED 11/25/2016 ORENDER DO, KELSIE S Ot R60.9 EDEMA, UNSPECIFIED 12/09/2016 ORENDER DO, KELSIE S Ot R05 COUGH 12/11/2016 ORENDER DO, KELSIE S Ot F17.210 NICOTINE DEPENDENCE, CIGARETTES, UNCOMPL 12/11/2016 ORENDER DO, KELSIE S Ot R05 COUGH 12/11/2016 ORENDER DO, KELSIE S Ot R06.00 DYSPNEA, UNSPECIFIED 12/13/2016 ORENDER DO, KELSIE S Ot R01.1 CARDIAC MURMUR, UNSPECIFIED 12/13/2016 ORENDER DO, KELSIE S Ot R60.9 EDEMA, UNSPECIFIED 12/25/2016 ORENDER DO, KELSIE S Ot R05 COUGH 12/25/2016 ORENDER DO, KELSIE S Ot R01.1 CARDIAC MURMUR, UNSPECIFIED 12/25/2016 ORENDER DO, KELSIE S Ot R60.9 EDEMA, UNSPECIFIED 12/26/2016 ORENDER DO, KELSIE S Ot F17.210 NICOTINE DEPENDENCE, CIGARETTES, UNCOMPL 12/26/2016 ORENDER DO, KELSIE S Ot R05 COUGH 12/26/2016 ORENDER DO, KELSIE S Ot R06.00 DYSPNEA, UNSPECIFIED 12/30/2016 ORENDER DO, KELSIE S Ot D64.9 ANEMIA, UNSPECIFIED 12/30/2016 ORENDER DO, KELSIE S Ot E78.00 PURE HYPERCHOLESTEROLEMIA, UNSPECIFIED 12/30/2016 ORENDER DO, KELSIE S Ot F17.210 NICOTINE DEPENDENCE, CIGARETTES, UNCOMPL 12/30/2016 ORENDER DO, KELSIE S Ot F32.9 MAJOR DEPRESSIVE DISORDER, SINGLE EPISOD 12/30/2016 ORENDER DO, KELSIE S Ot F41.9 ANXIETY DISORDER, UNSPECIFIED 12/30/2016 KELSIE PEARSON DO S Ot G40.909 EPILEPSY, UNSP, NOT INTRACTABLE, WITHOUT 12/30/2016 KELSIE PEARSON DO S Ot H40.9 UNSPECIFIED GLAUCOMA 12/30/2016 KELSIE PEARSON DO S Ot I11.0 HYPERTENSIVE HEART DISEASE WITH HEART FA 12/30/2016 KELSIE PEARSON DO Ot I25.10 ATHSCL HEART DISEASE OF [place] CORONARY 12/30/2016 KELSIE PEARSON DO S Ot I50.30 UNSPECIFIED DIASTOLIC (CONGESTIVE) HEART 12/30/2016 KELSIE PEARSON DO S Ot I69.354 HEMIPLGA FOLLOWING CEREBRAL INFRC AFFECT 12/30/2016 KELSIE PEARSON DO Ot I73.9 PERIPHERAL VASCULAR DISEASE, UNSPECIFIED 12/30/2016 KELSIE PEARSON DO Ot J18.9 PNEUMONIA, UNSPECIFIED ORGANISM 12/30/2016 KELSIE PEARSON DO Ot J44.0 CHRONIC OBSTRUCTIVE PULMON DISEASE W ACU 12/30/2016 KELSIE PEARSON DO Ot J44.1 CHRONIC OBSTRUCTIVE PULMONARY DISEASE W 12/30/2016 KELSIE PEARSON DO S Ot K21.9 GASTRO-ESOPHAGEAL REFLUX DISEASE WITHOUT 12/30/2016 KELSIE PEARSON DO S Ot K44.9 DIAPHRAGMATIC HERNIA WITHOUT OBSTRUCTION 12/30/2016 KELSIE PEARSON DO S Ot M19.91 PRIMARY OSTEOARTHRITIS, UNSPECIFIED SITE 12/30/2016 KELSIE PEARSON DO Ot M54.9 DORSALGIA, UNSPECIFIED 12/30/2016 KELSIE PEARSON DO S Ot M79.7 FIBROMYALGIA 12/30/2016 KELSIE PEARSON DO S Ot R01.1 CARDIAC MURMUR, UNSPECIFIED 12/30/2016 KELSIE PEARSON DO S Ot R11.0 NAUSEA 12/30/2016 KELSIE PEARSON DO S Ot R53.1 WEAKNESS 12/30/2016 KELSIE PEARSON DO S Ot Z85.3 PERSONAL HISTORY OF MALIGNANT NEOPLASM O 12/31/2016 KELSIE PEARSON DO Ot D64.9 ANEMIA, UNSPECIFIED 12/31/2016 KELSIE PEARSON DO Ot E78.00 PURE HYPERCHOLESTEROLEMIA, UNSPECIFIED 12/31/2016 KELSIE PEARSON DO S Ot F17.210 NICOTINE DEPENDENCE, CIGARETTES, UNCOMPL 12/31/2016 KELSIE PEARSON DO S Ot F32.9 MAJOR DEPRESSIVE DISORDER, SINGLE EPISOD 12/31/2016 KELSIE PEARSON DO S Ot F41.9 ANXIETY DISORDER, UNSPECIFIED 12/31/2016 KELSIE PEARSON DO S Ot G40.909 EPILEPSY, UNSP, NOT INTRACTABLE, WITHOUT 12/31/2016 NEHEMIAS PEARSON DOLINE S Ot H40.9 UNSPECIFIED GLAUCOMA 12/31/2016 KELSIE PEARSON DO S Ot I11.0 HYPERTENSIVE HEART DISEASE WITH HEART FA 12/31/2016 KELSIE PEARSON DO S Ot I25.10 ATHSCL HEART DISEASE OF [place] CORONARY 12/31/2016 KELSIE PEARSON DO S Ot I50.30 UNSPECIFIED DIASTOLIC (CONGESTIVE) HEART 12/31/2016 KELSIE PEARSON DO S Ot I69.354 HEMIPLGA FOLLOWING CEREBRAL INFRC AFFECT 12/31/2016 KELSIE PEARSON DO S Ot I73.9 PERIPHERAL VASCULAR DISEASE, UNSPECIFIED 12/31/2016 KELSIE PEARSON DO S Ot J18.9 PNEUMONIA, UNSPECIFIED ORGANISM 12/31/2016 KELSIE PEARSON DO S Ot J44.0 CHRONIC OBSTRUCTIVE PULMON DISEASE W ACU 12/31/2016 KELSIE PEARSON DO Ot J44.1 CHRONIC OBSTRUCTIVE PULMONARY DISEASE W 12/31/2016 KELSIE PEARSON DO S Ot K21.9 GASTRO-ESOPHAGEAL REFLUX DISEASE WITHOUT 12/31/2016 NEHEMIAS PEARSON DOLINE S Ot K44.9 DIAPHRAGMATIC HERNIA WITHOUT OBSTRUCTION 12/31/2016 KELSIE PEARSON DO S Ot M19.91 PRIMARY OSTEOARTHRITIS, UNSPECIFIED SITE 12/31/2016 KELSIE PEARSON DO S Ot M54.9 DORSALGIA, UNSPECIFIED 12/31/2016 KELSIE PEARSON DO S Ot M79.7 FIBROMYALGIA 12/31/2016 KELSIE PEARSON DO S Ot R01.1 CARDIAC MURMUR, UNSPECIFIED 12/31/2016 KELSIE PEARSON DO S Ot R11.0 NAUSEA 12/31/2016 KELSIE PEARSON DO S Ot R53.1 WEAKNESS 12/31/2016 KELSIE PEARSON DO S Ot Z85.3 PERSONAL HISTORY OF MALIGNANT NEOPLASM O 12/31/2016 KELSIE PEARSON DO S Ot D64.9 ANEMIA, UNSPECIFIED 12/31/2016 KELSIE PEARSON DO S Ot E78.00 PURE HYPERCHOLESTEROLEMIA, UNSPECIFIED 12/31/2016 KELSIE PEARSON DO S Ot F17.210 NICOTINE DEPENDENCE, CIGARETTES, UNCOMPL 12/31/2016 KELSIE PEARSON DO S Ot F32.9 MAJOR DEPRESSIVE DISORDER, SINGLE EPISOD 12/31/2016 KELSIE PEARSON DO S Ot F41.9 ANXIETY DISORDER, UNSPECIFIED 12/31/2016 KELSIE PEARSON DO S Ot G40.909 EPILEPSY, UNSP, NOT INTRACTABLE, WITHOUT 12/31/2016 KELSIE PEARSON DO S Ot H40.9 UNSPECIFIED GLAUCOMA 12/31/2016 KELSIE PEARSON DO S Ot I11.0 HYPERTENSIVE HEART DISEASE WITH HEART FA 12/31/2016 KELSIE PEARSON DO S Ot I25.10 ATHSCL HEART DISEASE OF [place] CORONARY 12/31/2016 KELSIE PEARSON DO S Ot I50.30 UNSPECIFIED DIASTOLIC (CONGESTIVE) HEART 12/31/2016 KELSIE PEARSON DO S Ot I69.354 HEMIPLGA FOLLOWING CEREBRAL INFRC AFFECT 12/31/2016 KELSIE PEARSON DO S Ot I73.9 PERIPHERAL VASCULAR DISEASE, UNSPECIFIED 12/31/2016 KELSIE PEAROSN DO S Ot J18.9 PNEUMONIA, UNSPECIFIED ORGANISM 12/31/2016 KELSIE PEARSON DO S Ot J44.0 CHRONIC OBSTRUCTIVE PULMON DISEASE W ACU 12/31/2016 KELSIE PEARSON DO S Ot J44.1 CHRONIC OBSTRUCTIVE PULMONARY DISEASE W 12/31/2016 KELSIE PEARSON DO S Ot K21.9 GASTRO-ESOPHAGEAL REFLUX DISEASE WITHOUT 12/31/2016 KELSIE PEARSON DO S Ot K44.9 DIAPHRAGMATIC HERNIA WITHOUT OBSTRUCTION 12/31/2016 KELSIE PEARSON DO S Ot M19.91 PRIMARY OSTEOARTHRITIS, UNSPECIFIED SITE 12/31/2016 KELSIE PEARSON DO S Ot M54.9 DORSALGIA, UNSPECIFIED 12/31/2016 KELSIE PEARSON DO S Ot M79.7 FIBROMYALGIA 12/31/2016 KELSIE PEARSON DO S Ot R01.1 CARDIAC MURMUR, UNSPECIFIED 12/31/2016 KELSIE PEARSON DO S Ot R11.0 NAUSEA 12/31/2016 KELSIE PEARSON DO S Ot R53.1 WEAKNESS 12/31/2016 KELSIE PEARSON DO S Ot Z85.3 PERSONAL HISTORY OF MALIGNANT NEOPLASM O 01/01/2017 KELSIE PEARSON DO S Ot D64.9 ANEMIA, UNSPECIFIED 01/01/2017 KELSIE PEARSON DO S Ot E78.00 PURE HYPERCHOLESTEROLEMIA, UNSPECIFIED 01/01/2017 NEHEMIAS PEARSON DOLINE S Ot F17.210 NICOTINE DEPENDENCE, CIGARETTES, UNCOMPL 01/01/2017 KELSIE PEARSON DO S Ot F32.9 MAJOR DEPRESSIVE DISORDER, SINGLE EPISOD 01/01/2017 NEHEMIAS PEARSON DOLINE S Ot F41.9 ANXIETY DISORDER, UNSPECIFIED 01/01/2017 KELSIE PEARSON DO S Ot G40.909 EPILEPSY, UNSP, NOT INTRACTABLE, WITHOUT 01/01/2017 NEHEMIAS PEARSON DOLINE S Ot H40.9 UNSPECIFIED GLAUCOMA 01/01/2017 KELSIE PEARSON DO S Ot I11.0 HYPERTENSIVE HEART DISEASE WITH HEART FA 01/01/2017 KELSIE PEARSON DO S Ot I25.10 ATHSCL HEART DISEASE OF [place] CORONARY 01/01/2017 KELSIE PEARSON DO S Ot I50.30 UNSPECIFIED DIASTOLIC (CONGESTIVE) HEART 01/01/2017 KELSIE PEARSON DO S Ot I69.354 HEMIPLGA FOLLOWING CEREBRAL INFRC AFFECT 01/01/2017 KELSIE PEARSON DO S Ot I73.9 PERIPHERAL VASCULAR DISEASE, UNSPECIFIED 01/01/2017 KELSIE PEARSON DO S Ot J18.9 PNEUMONIA, UNSPECIFIED ORGANISM 01/01/2017 KELSIE PEARSON DO S Ot J44.0 CHRONIC OBSTRUCTIVE PULMON DISEASE W ACU 01/01/2017 CHARLENENDDOLORES MONCADA KELSIE Schuler Ot J44.1 CHRONIC OBSTRUCTIVE PULMONARY DISEASE W 01/01/2017 CHARLENENDER KELSIE S Ot K21.9 GASTRO-ESOPHAGEAL REFLUX DISEASE WITHOUT 01/01/2017 CHARLENENDER KELSIE S Ot K25.9 GASTRIC ULCER, UNSP ACUTE OR CHRONIC, 01/01/2017 CHARLENENDDOLORES MONCADA KELSIE S Ot K29.70 GASTRITIS, UNSPECIFIED, WITHOUT BLEEDING 01/01/2017 CHARLENENDDOLORES MONCADA KELSIE S Ot K44.9 DIAPHRAGMATIC HERNIA WITHOUT OBSTRUCTION 01/01/2017 CHARLENENDER KELSIE S Ot M19.91 PRIMARY OSTEOARTHRITIS, UNSPECIFIED SITE 01/01/2017 MICHEL MONCADA KELSIE S Ot M54.9 DORSALGIA, UNSPECIFIED 01/01/2017 CHARLENENDDOLROES MONCADA KELSIE S Ot M79.7 FIBROMYALGIA 01/01/2017 MICHEL MONCADA KELSIE S Ot R01.1 CARDIAC MURMUR, UNSPECIFIED 01/01/2017 CHARLENEWALLACE MONCADA KELSIE S Ot R11.0 NAUSEA 01/01/2017 KYLEER KELSIE S Ot R53.1 WEAKNESS 01/01/2017 CHARLENENDDOLORES MONCADA KELSIE S Ot Z85.3 PERSONAL HISTORY OF MALIGNANT NEOPLASM O 01/07/2017 CHARLENEWALLACE MONCADA KELSIE S Ot F17.210 NICOTINE DEPENDENCE, CIGARETTES, UNCOMPL 01/07/2017 CHARLENEWALLACE MONCADA KELSIE S Ot R05 COUGH 01/07/2017 KYLEDOLORES DO KELSIE S Ot R06.00 DYSPNEA, UNSPECIFIED 01/09/2017 IRA RAE, CLEO Schuler Ot E78.00 PURE HYPERCHOLESTEROLEMIA, UNSPECIFIED 01/09/2017 IRA RAE, CLEO Schuler Ot F41.9 ANXIETY DISORDER, UNSPECIFIED 01/09/2017 IRA RAE, CLEO Schuler Ot G40.909 EPILEPSY, UNSP, NOT INTRACTABLE, WITHOUT 01/09/2017 IRA RAE, CLEO Schuler Ot I10 ESSENTIAL (PRIMARY) HYPERTENSION 01/09/2017 IRA RAE, CLEO Schuler Ot I25.10 ATHSCL HEART DISEASE OF [place] CORONARY 01/09/2017 IRA RAE, CLEO Schuler Ot J44.9 CHRONIC OBSTRUCTIVE PULMONARY DISEASE, U 01/09/2017 CLEO ROTH MD Ot K21.9 GASTRO-ESOPHAGEAL REFLUX DISEASE WITHOUT 01/09/2017 CLEO ROTH MD Ot S00.03XA CONTUSION OF SCALP, INITIAL ENCOUNTER 01/09/2017 CLEO ROTH MD Ot S09.90XA UNSPECIFIED INJURY OF HEAD, INITIAL ENCO 01/09/2017 CLEO ROTH MD Ot W18.30XA FALL ON SAME LEVEL, UNSPECIFIED, INITIAL 01/09/2017 CLEO ROTH MD Ot Y92.[address] OF OCCURRENCE OF 01/09/2017 CLEO ROTH MD Ot Z80.0 FAMILY HISTORY OF MALIGNANT NEOPLASM OF 01/09/2017 CLEO ROTH MD Ot Z80.41 FAMILY HISTORY OF MALIGNANT NEOPLASM OF 01/09/2017 CLEO ROTH MD Ot Z86.73 PRSNL HX OF TIA (TIA), AND CEREB INFRC W 01/09/2017 CLEO ROTH MD Ot Z87.01 PERSONAL HISTORY OF PNEUMONIA (RECURRENT 01/09/2017 CLEO ROTH MD Ot Z87.19 PERSONAL HISTORY OF OTHER DISEASES OF TH 01/09/2017 CLEO ROTH MD Ot Z90.710 ACQUIRED ABSENCE OF BOTH CERVIX AND UTER 02/04/2017 KELSIE PEARSON DO Ot Z12.31 ENCNTR SCREEN MAMMOGRAM FOR MALIGNANT NE 02/14/2017 KELSIE PEARSON DO Ot Z12.31 ENCNTR SCREEN MAMMOGRAM FOR MALIGNANT NE 04/01/2017 KELSIE PEARSON DO Ot D64.9 ANEMIA, UNSPECIFIED Procedures Code Description Performed By Performed On 38.12 HEAD NECK ENDARTER NEC 05/30/2014 45.13 OTHER ENDOSCOPY OF SM INTEST 07/14/2014 48.36 ENDO RECTUM POLYPECTOMY 07/15/2014 [id number] INSERTION OF INTRAMED FIX INTO R FEMUR S 09/10/2015 [id number] REPOSITION LEFT UPPER FEMUR WITH INTRAME 05/24/2016 [id number] INSPECTION OF UPPER INTESTINAL TRACT, 12/30/2016 [id number] INSPECTION OF UPPER INTESTINAL TRACT, EN 12/30/2016 [id number] INSPECTION OF STOMACH, VIA NATURAL OR AR 12/30/2016 [id number] INSPECTION OF STOMACH, ENDO 12/30/2016 Results Test Result Range Complete blood count (CBC) with automated white blood cell (WBC) differential - 01/28/16 13:20 Blood leukocytes automated count (number/volume) 5.5 10*3/uL 4.3-11.0 Blood erythrocytes automated count (number/volume) 3.38 10*6/uL 4.35-5.85 Venous blood hemoglobin measurement (mass/volume) 9.4 g/dL 11.5-16.0 Blood hematocrit (volume fraction) 30 % 35-52 Automated erythrocyte mean corpuscular volume 90 [foz_us] 80-99 Automated erythrocyte mean corpuscular hemoglobin (mass per erythrocyte) 28 pg 25-34 Automated erythrocyte mean corpuscular hemoglobin concentration measurement ( mass/volume) 31 g/dL 32-36 Automated erythrocyte distribution width ratio 13.1 % 10.0-14.5 Automated blood platelet count (count/volume) 279 10*3/uL 130-400 Automated blood platelet mean volume measurement 9.4 [foz_us] 7.4-10.4 Automated blood neutrophils/100 leukocytes 62 % 42-75 Automated blood lymphocytes/100 leukocytes 21 % 12-44 Blood monocytes/100 leukocytes 13 % 0-12 Automated blood eosinophils/100 leukocytes 4 % 0-10 Automated blood basophils/100 leukocytes 1 % 0-10 Blood neutrophils automated count (number/volume) 3.4 10*3 1.8-7.8 Blood lymphocytes automated count (number/volume) 1.2 10*3 1.0-4.0 Blood monocytes automated count (number/volume) 0.7 10*3 0.0-1.0 Automated eosinophil count 0.2 10*3/uL 0.0-0.3 Automated blood basophil count (count/volume) 0.0 10*3/uL 0.0-0.1 PT panel in platelet poor plasma by coagulation assay - 01/28/16 13:20 Prothrombin time (PT) in platelet poor plasma by coagulation assay 13.2 s 12.2-14.7 INR in platelet poor plasma or blood by coagulation assay 1.0 0.8-1.4 Activated partial thromboplastin time (aPTT) in platelet poor plasma bycoagulation assay - 01/28/16 13:20 Activated partial thromboplastin time (aPTT) in platelet poor plasma bycoagulation assay 33 s 24-35 Comprehensive metabolic panel - 01/28/16 13:20 Serum or plasma sodium measurement (moles/volume) 140 mmol/L 135-145 Serum or plasma potassium measurement (moles/volume) 4.2 mmol/L 3.6-5.0 Serum or plasma chloride measurement (moles/volume) 107 mmol/L 98-107 Carbon dioxide 24 mmol/L 21-32 Serum or plasma anion gap determination (moles/volume) 9 mmol/L 5-14 Serum or plasma urea nitrogen measurement (mass/volume) 19 mg/dL 7-18 Serum or plasma creatinine measurement (mass/volume) 1.04 mg/dL 0.60-1.30 Serum or plasma urea nitrogen/creatinine mass ratio 18 NRG Serum or plasma creatinine measurement with calculation of estimated glomerular filtration rate 52 NRG Serum or plasma glucose measurement (mass/volume) 107 mg/dL 70-105 Serum or plasma calcium measurement (mass/volume) 9.1 mg/dL 8.5-10.1 Serum or plasma total bilirubin measurement (mass/volume) 0.2 mg/dL 0.1-1.0 Serum or plasma alkaline phosphatase measurement (enzymatic activity/volume) 94 U/L 40-136 Serum or plasma aspartate aminotransferase measurement (enzymatic activity/ volume) 13 U/L 5-34 Serum or plasma alanine aminotransferase measurement (enzymatic activity/volume ) 6 U/L 0-55 Serum or plasma protein measurement (mass/volume) 6.4 g/dL 6.4-8.2 Serum or plasma albumin measurement (mass/volume) 3.6 g/dL 3.2-4.5 Magnesium - 01/28/16 13:20 Magnesium 2.1 mg/dL 1.8-2.4 Serum or plasma creatine kinase measurement (enzymatic activity/volume) - 01/27 13:20 Serum or plasma creatine kinase measurement (enzymatic activity/volume) 58 U/L 29-168 Serum or plasma creatine kinase MB measurement (enzymatic activity/volume) - 13:20 Serum or plasma creatine kinase MB measurement (enzymatic activity/volume) 1.4 ng/mL <6.6 Serum or plasma troponin i.cardiac measurement (mass/volume) - 01/28/16 13:20 Serum or plasma troponin i.cardiac measurement (mass/volume) < ng/ mL <0.30 Serum or plasma thyrotropin measurement by detection limit <=0.05 miu/l (units/ volume) - 01/28/16 13:20 Serum or plasma thyrotropin measurement by detection limit <=0.05 miu/l (units/ volume) 0.88 u[iU]/mL 0.35-4.94 Valproic acid - 01/28/16 13:30 Valproic acid 13.5 ug/mL 50.0-100.0 Complete urinalysis with reflex to culture - 01/28/16 14:05 Urine color determination YELLOW NRG Urine clarity determination CLEAR NRG Urine pH measurement by test strip 6 5-9 Specific gravity of urine by test strip 1.015 1.016- 1.022 Urine protein assay by test strip, semi-quantitative NEGATIVE NEGATIVE Urine glucose detection by automated test strip NEGATIVE NEGATIVE Erythrocytes detection in urine sediment by light microscopy NEGATIVE NEGATIVE Urine ketones detection by automated test strip NEGATIVE NEGATIVE Urine nitrite detection by test strip NEGATIVE NEGATIVE Urine total bilirubin detection by test strip NEGATIVE NEGATIVE Urine urobilinogen measurement by automated test strip (mass/volume) NORMAL NORMAL Urine leukocyte esterase detection by dipstick NEGATIVE NEGATIVE Automated urine sediment erythrocyte count by microscopy (number/high power field) [HPF] NRG Automated urine sediment leukocyte count by microscopy (number/high power field ) [HPF] NRG Bacteria detection in urine sediment by light microscopy FEW NRG Squamous epithelial cells detection in urine sediment by light microscopy >50 NRG Crystals detection in urine sediment by light microscopy PRESENT NRG Casts detection in urine sediment by light microscopy PRESENT NRG Mucus detection in urine sediment by light microscopy NEGATIVE NRG Complete urinalysis with reflex to culture NO NRG Amorphous sediment detection in urine sediment by light microscopy RARE MARY URATES NRG Hyaline casts detection in urine sediment by light microscopy >50 NRG Complete blood count (CBC) with automated white blood cell (WBC) differential - 01/31/16 14:23 Blood leukocytes automated count (number/volume) 6.7 10*3/uL 4.3-11.0 Blood erythrocytes automated count (number/volume) 3.12 10*6/uL 4.35-5.85 Venous blood hemoglobin measurement (mass/volume) 8.8 g/dL 11.5-16.0 Blood hematocrit (volume fraction) 28 % 35-52 Automated erythrocyte mean corpuscular volume 89 [foz_us] 80-99 Automated erythrocyte mean corpuscular hemoglobin (mass per erythrocyte) 28 pg 25-34 Automated erythrocyte mean corpuscular hemoglobin concentration measurement ( mass/volume) 32 g/dL 32-36 Automated erythrocyte distribution width ratio 13.0 % 10.0-14.5 Automated blood platelet count (count/volume) 251 10*3/uL 130-400 Automated blood platelet mean volume measurement 9.1 [foz_us] 7.4-10.4 Automated blood neutrophils/100 leukocytes 67 % 42-75 Automated blood lymphocytes/100 leukocytes 19 % 12-44 Blood monocytes/100 leukocytes 12 % 0-12 Automated blood eosinophils/100 leukocytes 2 % 0-10 Automated blood basophils/100 leukocytes 0 % 0-10 Blood neutrophils automated count (number/volume) 4.4 10*3 1.8-7.8 Blood lymphocytes automated count (number/volume) 1.3 10*3 1.0-4.0 Blood monocytes automated count (number/volume) 0.8 10*3 0.0-1.0 Automated eosinophil count 0.1 10*3/uL 0.0-0.3 Automated blood basophil count (count/volume) 0.0 10*3/uL 0.0-0.1 PT panel in platelet poor plasma by coagulation assay - 01/31/16 14:23 Prothrombin time (PT) in platelet poor plasma by coagulation assay 13.4 s 12.2-14.7 INR in platelet poor plasma or blood by coagulation assay 1.1 0.8-1.4 Activated partial thromboplastin time (aPTT) in platelet poor plasma bycoagulation assay - 01/31/16 14:23 Activated partial thromboplastin time (aPTT) in platelet poor plasma bycoagulation assay 32 s 24-35 Comprehensive metabolic panel - 01/31/16 14:23 Serum or plasma sodium measurement (moles/volume) 136 mmol/L 135-145 Serum or plasma potassium measurement (moles/volume) 4.4 mmol/L 3.6-5.0 Serum or plasma chloride measurement (moles/volume) 100 mmol/L 98-107 Carbon dioxide 27 mmol/L 21-32 Serum or plasma anion gap determination (moles/volume) 9 mmol/L 5-14 Serum or plasma urea nitrogen measurement (mass/volume) 17 mg/dL 7-18 Serum or plasma creatinine measurement (mass/volume) 1.18 mg/dL 0.60-1.30 Serum or plasma urea nitrogen/creatinine mass ratio 14 NRG Serum or plasma creatinine measurement with calculation of estimated glomerular filtration rate 45 NRG Serum or plasma glucose measurement (mass/volume) 112 mg/dL 70-105 Serum or plasma calcium measurement (mass/volume) 9.2 mg/dL 8.5-10.1 Serum or plasma total bilirubin measurement (mass/volume) 0.2 mg/dL 0.1-1.0 Serum or plasma alkaline phosphatase measurement (enzymatic activity/volume) 85 U/L 40-136 Serum or plasma aspartate aminotransferase measurement (enzymatic activity/ volume) 15 U/L 5-34 Serum or plasma alanine aminotransferase measurement (enzymatic activity/volume ) 7 U/L 0-55 Serum or plasma protein measurement (mass/volume) 5.9 g/dL 6.4-8.2 Serum or plasma albumin measurement (mass/volume) 3.4 g/dL 3.2-4.5 Fibrin D-dimer FEU measurement in platelet poor plasma (mass/volume) - 14:23 Fibrin D-dimer FEU measurement in platelet poor plasma (mass/volume) 0.96 ug/mL 0.00-0.49 Serum or plasma troponin i.cardiac measurement (mass/volume) - 01/31/16 14:23 Serum or plasma troponin i.cardiac measurement (mass/volume) < ng/ mL <0.30 Complete blood count (CBC) with automated white blood cell (WBC) differential - 02/01/16 06:25 Blood leukocytes automated count (number/volume) 5.4 10*3/uL 4.3-11.0 Blood erythrocytes automated count (number/volume) 3.02 10*6/uL 4.35-5.85 Venous blood hemoglobin measurement (mass/volume) 8.6 g/dL 11.5-16.0 Blood hematocrit (volume fraction) 27 % 35-52 Automated erythrocyte mean corpuscular volume 89 [foz_us] 80-99 Automated erythrocyte mean corpuscular hemoglobin (mass per erythrocyte) 29 pg 25-34 Automated erythrocyte mean corpuscular hemoglobin concentration measurement ( mass/volume) 32 g/dL 32-36 Automated erythrocyte distribution width ratio 13.3 % 10.0-14.5 Automated blood platelet count (count/volume) 238 10*3/uL 130-400 Automated blood platelet mean volume measurement 9.1 [foz_us] 7.4-10.4 Automated blood neutrophils/100 leukocytes 48 % 42-75 Automated blood lymphocytes/100 leukocytes 34 % 12-44 Blood monocytes/100 leukocytes 13 % 0-12 Automated blood eosinophils/100 leukocytes 4 % 0-10 Automated blood basophils/100 leukocytes 0 % 0-10 Blood neutrophils automated count (number/volume) 2.6 10*3 1.8-7.8 Blood lymphocytes automated count (number/volume) 1.8 10*3 1.0-4.0 Blood monocytes automated count (number/volume) 0.7 10*3 0.0-1.0 Automated eosinophil count 0.2 10*3/uL 0.0-0.3 Automated blood basophil count (count/volume) 0.0 10*3/uL 0.0-0.1 Comprehensive metabolic panel - 02/01/16 06:25 Serum or plasma sodium measurement (moles/volume) 140 mmol/L 135-145 Serum or plasma potassium measurement (moles/volume) 3.9 mmol/L 3.6-5.0 Serum or plasma chloride measurement (moles/volume) 108 mmol/L 98-107 Carbon dioxide 25 mmol/L 21-32 Serum or plasma anion gap determination (moles/volume) 7 mmol/L 5-14 Serum or plasma urea nitrogen measurement (mass/volume) 13 mg/dL 7-18 Serum or plasma creatinine measurement (mass/volume) 0.76 mg/dL 0.60-1.30 Serum or plasma urea nitrogen/creatinine mass ratio 17 NRG Serum or plasma creatinine measurement with calculation of estimated glomerular filtration rate > NRG Serum or plasma glucose measurement (mass/volume) 89 mg/dL 70-105 Serum or plasma calcium measurement (mass/volume) 8.8 mg/dL 8.5-10.1 Serum or plasma total bilirubin measurement (mass/volume) 0.2 mg/dL 0.1-1.0 Serum or plasma alkaline phosphatase measurement (enzymatic activity/volume) 86 U/L 40-136 Serum or plasma aspartate aminotransferase measurement (enzymatic activity/ volume) 13 U/L 5-34 Serum or plasma alanine aminotransferase measurement (enzymatic activity/volume ) < U/L 0-55 Serum or plasma protein measurement (mass/volume) 5.6 g/dL 6.4-8.2 Serum or plasma albumin measurement (mass/volume) 3.3 g/dL 3.2-4.5 Cholesterol in LDL [mass/volume] in serum or plasma by direct assay - 02/01/16 06:25 Cholesterol in LDL [mass/volume] in serum or plasma by direct assay 90 mg/dL 1-129 Complete blood count (CBC) with automated white blood cell (WBC) differential - 02/02/16 05:35 Blood leukocytes automated count (number/volume) 4.4 10*3/uL 4.3-11.0 Blood erythrocytes automated count (number/volume) 2.98 10*6/uL 4.35-5.85 Venous blood hemoglobin measurement (mass/volume) 8.3 g/dL 11.5-16.0 Blood hematocrit (volume fraction) 27 % 35-52 Automated erythrocyte mean corpuscular volume 89 [foz_us] 80-99 Automated erythrocyte mean corpuscular hemoglobin (mass per erythrocyte) 28 pg 25-34 Automated erythrocyte mean corpuscular hemoglobin concentration measurement ( mass/volume) 31 g/dL 32-36 Automated erythrocyte distribution width ratio 13.2 % 10.0-14.5 Automated blood platelet count (count/volume) 222 10*3/uL 130-400 Automated blood platelet mean volume measurement 9.4 [foz_us] 7.4-10.4 Automated blood neutrophils/100 leukocytes 38 % 42-75 Automated blood lymphocytes/100 leukocytes 42 % 12-44 Blood monocytes/100 leukocytes 13 % 0-12 Automated blood eosinophils/100 leukocytes 6 % 0-10 Automated blood basophils/100 leukocytes 1 % 0-10 Blood neutrophils automated count (number/volume) 1.7 10*3 1.8-7.8 Blood lymphocytes automated count (number/volume) 1.9 10*3 1.0-4.0 Blood monocytes automated count (number/volume) 0.6 10*3 0.0-1.0 Automated eosinophil count 0.3 10*3/uL 0.0-0.3 Automated blood basophil count (count/volume) 0.0 10*3/uL 0.0-0.1 Whole blood basic metabolic panel - 02/02/16 05:35 Serum or plasma sodium measurement (moles/volume) 141 mmol/L 135-145 Serum or plasma potassium measurement (moles/volume) 4.0 mmol/L 3.6-5.0 Serum or plasma chloride measurement (moles/volume) 111 mmol/L 98-107 Carbon dioxide 21 mmol/L 21-32 Serum or plasma anion gap determination (moles/volume) 9 mmol/L 5-14 Serum or plasma urea nitrogen measurement (mass/volume) 9 mg/dL 7-18 Serum or plasma creatinine measurement (mass/volume) 0.72 mg/dL 0.60-1.30 Serum or plasma urea nitrogen/creatinine mass ratio 13 NRG Serum or plasma creatinine measurement with calculation of estimated glomerular filtration rate > NRG Serum or plasma glucose measurement (mass/volume) 82 mg/dL 70-105 Serum or plasma calcium measurement (mass/volume) 8.8 mg/dL 8.5-10.1 Complete blood count (CBC) with automated white blood cell (WBC) differential - 02/03/16 04:26 Blood leukocytes automated count (number/volume) 4.8 10*3/uL 4.3-11.0 Blood erythrocytes automated count (number/volume) 2.96 10*6/uL 4.35-5.85 Venous blood hemoglobin measurement (mass/volume) 8.2 g/dL 11.5-16.0 Blood hematocrit (volume fraction) 26 % 35-52 Automated erythrocyte mean corpuscular volume 89 [foz_us] 80-99 Automated erythrocyte mean corpuscular hemoglobin (mass per erythrocyte) 28 pg 25-34 Automated erythrocyte mean corpuscular hemoglobin concentration measurement ( mass/volume) 31 g/dL 32-36 Automated erythrocyte distribution width ratio 13.1 % 10.0-14.5 Automated blood platelet count (count/volume) 232 10*3/uL 130-400 Automated blood platelet mean volume measurement 9.7 [foz_us] 7.4-10.4 Automated blood neutrophils/100 leukocytes 43 % 42-75 Automated blood lymphocytes/100 leukocytes 39 % 12-44 Blood monocytes/100 leukocytes 13 % 0-12 Automated blood eosinophils/100 leukocytes 5 % 0-10 Automated blood basophils/100 leukocytes 0 % 0-10 Blood neutrophils automated count (number/volume) 2.0 10*3 1.8-7.8 Blood lymphocytes automated count (number/volume) 1.9 10*3 1.0-4.0 Blood monocytes automated count (number/volume) 0.6 10*3 0.0-1.0 Automated eosinophil count 0.2 10*3/uL 0.0-0.3 Automated blood basophil count (count/volume) 0.0 10*3/uL 0.0-0.1 RED CELLS LEUKO REDUCED AS1 - 04/25/16 08:44 RED CELLS LEUKO REDUCED AS1 TRANSFUSED 04/25/16 1142 NR Blood type T Indirect antibody screen panel - 04/25/16 08:44 ABO+Rh group OP NRG Transfusion band number [id number] NRG Blood group antibody screen NEGATIVE NRG Methicillin resistant Staphylococcus aureus (MRSA) screening culture - 00:50 Methicillin resistant Staphylococcus aureus (MRSA) screening culture NEG NRG Complete blood count (CBC) with automated white blood cell (WBC) differential - 05/24/16 06:21 Blood leukocytes automated count (number/volume) 5.1 10*3/uL 4.3-11.0 Blood erythrocytes automated count (number/volume) 3.74 10*6/uL 4.35-5.85 Venous blood hemoglobin measurement (mass/volume) 9.4 g/dL 11.5-16.0 Blood hematocrit (volume fraction) 30 % 35-52 Automated erythrocyte mean corpuscular volume 81 [foz_us] 80-99 Automated erythrocyte mean corpuscular hemoglobin (mass per erythrocyte) 25 pg 25-34 Automated erythrocyte mean corpuscular hemoglobin concentration measurement ( mass/volume) 31 g/dL 32-36 Automated erythrocyte distribution width ratio 17.5 % 10.0-14.5 Automated blood platelet count (count/volume) 254 10*3/uL 130-400 Automated blood platelet mean volume measurement 9.5 [foz_us] 7.4-10.4 Automated blood neutrophils/100 leukocytes 69 % 42-75 Automated blood lymphocytes/100 leukocytes 20 % 12-44 Blood monocytes/100 leukocytes 10 % 0-12 Automated blood eosinophils/100 leukocytes 1 % 0-10 Automated blood basophils/100 leukocytes 0 % 0-10 Blood neutrophils automated count (number/volume) 3.5 10*3 1.8-7.8 Blood lymphocytes automated count (number/volume) 1.0 10*3 1.0-4.0 Blood monocytes automated count (number/volume) 0.5 10*3 0.0-1.0 Automated eosinophil count 0.1 10*3/uL 0.0-0.3 Automated blood basophil count (count/volume) 0.0 10*3/uL 0.0-0.1 PT panel in platelet poor plasma by coagulation assay - 05/24/16 06:21 Prothrombin time (PT) in platelet poor plasma by coagulation assay 12.7 s 12.2-14.7 INR in platelet poor plasma or blood by coagulation assay 1.0 0.8-1.4 Activated partial thromboplastin time (aPTT) in platelet poor plasma bycoagulation assay - 05/24/16 06:21 Activated partial thromboplastin time (aPTT) in platelet poor plasma bycoagulation assay 29 s 24-35 Comprehensive metabolic panel - 05/24/16 06:21 Serum or plasma sodium measurement (moles/volume) 135 mmol/L 135-145 Serum or plasma potassium measurement (moles/volume) 4.7 mmol/L 3.6-5.0 Serum or plasma chloride measurement (moles/volume) 102 mmol/L 98-107 Carbon dioxide 23 mmol/L 21-32 Serum or plasma anion gap determination (moles/volume) 10 mmol/L 5-14 Serum or plasma urea nitrogen measurement (mass/volume) 14 mg/dL 7-18 Serum or plasma creatinine measurement (mass/volume) 0.87 mg/dL 0.60-1.30 Serum or plasma urea nitrogen/creatinine mass ratio 16 NRG Serum or plasma creatinine measurement with calculation of estimated glomerular filtration rate > NRG Serum or plasma glucose measurement (mass/volume) 114 mg/dL 70-105 Serum or plasma calcium measurement (mass/volume) 9.0 mg/dL 8.5-10.1 Serum or plasma total bilirubin measurement (mass/volume) 0.3 mg/dL 0.1-1.0 Serum or plasma alkaline phosphatase measurement (enzymatic activity/volume) 117 U/L 40-136 Serum or plasma aspartate aminotransferase measurement (enzymatic activity/ volume) 393 U/L 5-34 Serum or plasma alanine aminotransferase measurement (enzymatic activity/volume ) 167 U/L 0-55 Serum or plasma protein measurement (mass/volume) 6.3 g/dL 6.4-8.2 Serum or plasma albumin measurement (mass/volume) 3.5 g/dL 3.2-4.5 Complete blood count (CBC) with automated white blood cell (WBC) differential - 05/25/16 05:11 Blood leukocytes automated count (number/volume) 5.4 10*3/uL 4.3-11.0 Blood erythrocytes automated count (number/volume) 3.02 10*6/uL 4.35-5.85 Venous blood hemoglobin measurement (mass/volume) 7.5 g/dL 11.5-16.0 Blood hematocrit (volume fraction) 25 % 35-52 Automated erythrocyte mean corpuscular volume 82 [foz_us] 80-99 Automated erythrocyte mean corpuscular hemoglobin (mass per erythrocyte) 25 pg 25-34 Automated erythrocyte mean corpuscular hemoglobin concentration measurement ( mass/volume) 30 g/dL 32-36 Automated erythrocyte distribution width ratio 17.2 % 10.0-14.5 Automated blood platelet count (count/volume) 171 10*3/uL 130-400 Automated blood platelet mean volume measurement 9.4 [foz_us] 7.4-10.4 Automated blood neutrophils/100 leukocytes 69 % 42-75 Automated blood lymphocytes/100 leukocytes 16 % 12-44 Blood monocytes/100 leukocytes 13 % 0-12 Automated blood eosinophils/100 leukocytes 2 % 0-10 Automated blood basophils/100 leukocytes 0 % 0-10 Blood neutrophils automated count (number/volume) 3.7 10*3 1.8-7.8 Blood lymphocytes automated count (number/volume) 0.9 10*3 1.0-4.0 Blood monocytes automated count (number/volume) 0.7 10*3 0.0-1.0 Automated eosinophil count 0.1 10*3/uL 0.0-0.3 Automated blood basophil count (count/volume) 0.0 10*3/uL 0.0-0.1 Comprehensive metabolic panel - 05/25/16 05:11 Serum or plasma sodium measurement (moles/volume) 132 mmol/L 135-145 Serum or plasma potassium measurement (moles/volume) 4.4 mmol/L 3.6-5.0 Serum or plasma chloride measurement (moles/volume) 102 mmol/L 98-107 Carbon dioxide 20 mmol/L 21-32 Serum or plasma anion gap determination (moles/volume) 10 mmol/L 5-14 Serum or plasma urea nitrogen measurement (mass/volume) 9 mg/dL 7-18 Serum or plasma creatinine measurement (mass/volume) 0.76 mg/dL 0.60-1.30 Serum or plasma urea nitrogen/creatinine mass ratio 12 NRG Serum or plasma creatinine measurement with calculation of estimated glomerular filtration rate > NRG Serum or plasma glucose measurement (mass/volume) 115 mg/dL 70-105 Serum or plasma calcium measurement (mass/volume) 8.2 mg/dL 8.5-10.1 Serum or plasma total bilirubin measurement (mass/volume) 0.4 mg/dL 0.1-1.0 Serum or plasma alkaline phosphatase measurement (enzymatic activity/volume) 109 U/L 40-136 Serum or plasma aspartate aminotransferase measurement (enzymatic activity/ volume) 120 U/L 5-34 Serum or plasma alanine aminotransferase measurement (enzymatic activity/volume ) 118 U/L 0-55 Serum or plasma protein measurement (mass/volume) 5.3 g/dL 6.4-8.2 Serum or plasma albumin measurement (mass/volume) 3.0 g/dL 3.2-4.5 Whole blood hemoglobin and hematocrit panel - 05/25/16 15:58 Venous blood hemoglobin measurement (mass/volume) 7.8 g/dL 11.5-16.0 Blood hematocrit (volume fraction) 25 % 35-52 Complete blood count (CBC) with automated white blood cell (WBC) differential - 05/26/16 04:30 Blood leukocytes automated count (number/volume) 6.4 10*3/uL 4.3-11.0 Blood erythrocytes automated count (number/volume) 3.01 10*6/uL 4.35-5.85 Venous blood hemoglobin measurement (mass/volume) 7.5 g/dL 11.5-16.0 Blood hematocrit (volume fraction) 25 % 35-52 Automated erythrocyte mean corpuscular volume 82 [foz_us] 80-99 Automated erythrocyte mean corpuscular hemoglobin (mass per erythrocyte) 25 pg 25-34 Automated erythrocyte mean corpuscular hemoglobin concentration measurement ( mass/volume) 31 g/dL 32-36 Automated erythrocyte distribution width ratio 17.6 % 10.0-14.5 Automated blood platelet count (count/volume) 176 10*3/uL 130-400 Automated blood platelet mean volume measurement 9.9 [foz_us] 7.4-10.4 Automated blood neutrophils/100 leukocytes 68 % 42-75 Automated blood lymphocytes/100 leukocytes 16 % 12-44 Blood monocytes/100 leukocytes 11 % 0-12 Automated blood eosinophils/100 leukocytes 4 % 0-10 Automated blood basophils/100 leukocytes 0 % 0-10 Blood neutrophils automated count (number/volume) 4.4 10*3 1.8-7.8 Blood lymphocytes automated count (number/volume) 1.1 10*3 1.0-4.0 Blood monocytes automated count (number/volume) 0.7 10*3 0.0-1.0 Automated eosinophil count 0.3 10*3/uL 0.0-0.3 Automated blood basophil count (count/volume) 0.0 10*3/uL 0.0-0.1 Serum or plasma renal function panel (Na, K, Cl, CO2, BUN, Cr, glucose,Ca, phos , alb) - 05/26/16 04:30 Serum or plasma sodium measurement (moles/volume) 132 mmol/L 135-145 Serum or plasma potassium measurement (moles/volume) 4.3 mmol/L 3.6-5.0 Serum or plasma chloride measurement (moles/volume) 99 mmol/L 98-107 Carbon dioxide 22 mmol/L 21-32 Serum or plasma anion gap determination (moles/volume) 11 mmol/L 5-14 Serum or plasma urea nitrogen measurement (mass/volume) 11 mg/dL 7-18 Serum or plasma creatinine measurement (mass/volume) 0.86 mg/dL 0.60-1.30 Serum or plasma urea nitrogen/creatinine mass ratio 13 NRG Serum or plasma creatinine measurement with calculation of estimated glomerular filtration rate > NRG Serum or plasma glucose measurement (mass/volume) 115 mg/dL 70-105 Serum or plasma calcium measurement (mass/volume) 8.8 mg/dL 8.5-10.1 Serum or plasma albumin measurement (mass/volume) 3.1 g/dL 3.2-4.5 Serum or plasma phosphate measurement (mass/volume) 3.0 mg/dL 2.3-4.7 Complete urinalysis with reflex to culture - 05/26/16 12:15 Urine color determination YELLOW NRG Urine clarity determination VERY CLOUDY NRG Urine pH measurement by test strip 6 5-9 Specific gravity of urine by test strip 1.010 1.016- 1.022 Urine protein assay by test strip, semi-quantitative 1+ NEGATIVE Urine glucose detection by automated test strip NEGATIVE NEGATIVE Erythrocytes detection in urine sediment by light microscopy NEGATIVE NEGATIVE Urine ketones detection by automated test strip NEGATIVE NEGATIVE Urine nitrite detection by test strip NEGATIVE NEGATIVE Urine total bilirubin detection by test strip NEGATIVE NEGATIVE Urine urobilinogen measurement by automated test strip (mass/volume) 1 mg/dL NORMAL Urine leukocyte esterase detection by dipstick 1+ NEGATIVE Automated urine sediment erythrocyte count by microscopy (number/high power field) RARE NRG Automated urine sediment leukocyte count by microscopy (number/high power field ) RARE NRG Bacteria detection in urine sediment by light microscopy NEGATIVE NRG Squamous epithelial cells detection in urine sediment by light microscopy >50 NRG Crystals detection in urine sediment by light microscopy NONE NRG Casts detection in urine sediment by light microscopy NONE NRG Mucus detection in urine sediment by light microscopy NEGATIVE NRG Complete urinalysis with reflex to culture NO NRG Complete blood count (CBC) with automated white blood cell (WBC) differential - 05/27/16 04:25 Blood leukocytes automated count (number/volume) 5.0 10*3/uL 4.3-11.0 Blood erythrocytes automated count (number/volume) 2.71 10*6/uL 4.35-5.85 Venous blood hemoglobin measurement (mass/volume) 6.8 g/dL 11.5-16.0 Blood hematocrit (volume fraction) 22 % 35-52 Automated erythrocyte mean corpuscular volume 81 [foz_us] 80-99 Automated erythrocyte mean corpuscular hemoglobin (mass per erythrocyte) 25 pg 25-34 Automated erythrocyte mean corpuscular hemoglobin concentration measurement ( mass/volume) 31 g/dL 32-36 Automated erythrocyte distribution width ratio 17.4 % 10.0-14.5 Automated blood platelet count (count/volume) 169 10*3/uL 130-400 Automated blood platelet mean volume measurement 10.1 [foz_us] 7.4-10.4 Automated blood neutrophils/100 leukocytes 65 % 42-75 Automated blood lymphocytes/100 leukocytes 18 % 12-44 Blood monocytes/100 leukocytes 12 % 0-12 Automated blood eosinophils/100 leukocytes 5 % 0-10 Automated blood basophils/100 leukocytes 0 % 0-10 Blood neutrophils automated count (number/volume) 3.3 10*3 1.8-7.8 Blood lymphocytes automated count (number/volume) 0.9 10*3 1.0-4.0 Blood monocytes automated count (number/volume) 0.6 10*3 0.0-1.0 Automated eosinophil count 0.2 10*3/uL 0.0-0.3 Automated blood basophil count (count/volume) 0.0 10*3/uL 0.0-0.1 Whole blood basic metabolic panel - 05/27/16 04:25 Serum or plasma sodium measurement (moles/volume) 134 mmol/L 135-145 Serum or plasma potassium measurement (moles/volume) 4.1 mmol/L 3.6-5.0 Serum or plasma chloride measurement (moles/volume) 103 mmol/L 98-107 Carbon dioxide 22 mmol/L 21-32 Serum or plasma anion gap determination (moles/volume) 9 mmol/L 5-14 Serum or plasma urea nitrogen measurement (mass/volume) 9 mg/dL 7-18 Serum or plasma creatinine measurement (mass/volume) 0.74 mg/dL 0.60-1.30 Serum or plasma urea nitrogen/creatinine mass ratio 12 NRG Serum or plasma creatinine measurement with calculation of estimated glomerular filtration rate > NRG Serum or plasma glucose measurement (mass/volume) 114 mg/dL 70-105 Serum or plasma calcium measurement (mass/volume) 8.6 mg/dL 8.5-10.1 RED CELLS LEUKO REDUCED AS1 - 05/27/16 06:52 RED CELLS LEUKO REDUCED AS1 TRANSFUSED 05/28/16 0903 [facility] Blood type T Indirect antibody screen panel - 05/27/16 06:52 ABO+Rh group OP NRG Transfusion band number [id number] [facility] Blood group antibody screen NEGATIVE [facility] Complete blood count (CBC) with automated white blood cell (WBC) differential - 05/28/16 07:15 Blood leukocytes automated count (number/volume) 4.2 10*3/uL 4.3-11.0 Blood erythrocytes automated count (number/volume) 3.03 10*6/uL 4.35-5.85 Venous blood hemoglobin measurement (mass/volume) 7.9 g/dL 11.5-16.0 Blood hematocrit (volume fraction) 25 % 35-52 Automated erythrocyte mean corpuscular volume 82 [foz_us] 80-99 Automated erythrocyte mean corpuscular hemoglobin (mass per erythrocyte) 26 pg 25-34 Automated erythrocyte mean corpuscular hemoglobin concentration measurement ( mass/volume) 32 g/dL 32-36 Automated erythrocyte distribution width ratio 17.6 % 10.0-14.5 Automated blood platelet count (count/volume) 191 10*3/uL 130-400 Automated blood platelet mean volume measurement 9.7 [foz_us] 7.4-10.4 Automated blood neutrophils/100 leukocytes 60 % 42-75 Automated blood lymphocytes/100 leukocytes 18 % 12-44 Blood monocytes/100 leukocytes 15 % 0-12 Automated blood eosinophils/100 leukocytes 6 % 0-10 Automated blood basophils/100 leukocytes 0 % 0-10 Blood neutrophils automated count (number/volume) 2.6 10*3 1.8-7.8 Blood lymphocytes automated count (number/volume) 0.8 10*3 1.0-4.0 Blood monocytes automated count (number/volume) 0.7 10*3 0.0-1.0 Automated eosinophil count 0.2 10*3/uL 0.0-0.3 Automated blood basophil count (count/volume) 0.0 10*3/uL 0.0-0.1 Whole blood basic metabolic panel - 05/28/16 07:15 Serum or plasma sodium measurement (moles/volume) 136 mmol/L 135-145 Serum or plasma potassium measurement (moles/volume) 4.1 mmol/L 3.6-5.0 Serum or plasma chloride measurement (moles/volume) 104 mmol/L 98-107 Carbon dioxide 23 mmol/L 21-32 Serum or plasma anion gap determination (moles/volume) 9 mmol/L 5-14 Serum or plasma urea nitrogen measurement (mass/volume) 8 mg/dL 7-18 Serum or plasma creatinine measurement (mass/volume) 0.71 mg/dL 0.60-1.30 Serum or plasma urea nitrogen/creatinine mass ratio 11 NRG Serum or plasma creatinine measurement with calculation of estimated glomerular filtration rate > NRG Serum or plasma glucose measurement (mass/volume) 110 mg/dL 70-105 Serum or plasma calcium measurement (mass/volume) 8.7 mg/dL 8.5-10.1 Complete blood count (CBC) with automated white blood cell (WBC) differential - 05/29/16 04:30 Blood leukocytes automated count (number/volume) 4.5 10*3/uL 4.3-11.0 Blood erythrocytes automated count (number/volume) 3.39 10*6/uL 4.35-5.85 Venous blood hemoglobin measurement (mass/volume) 9.0 g/dL 11.5-16.0 Blood hematocrit (volume fraction) 28 % 35-52 Automated erythrocyte mean corpuscular volume 82 [foz_us] 80-99 Automated erythrocyte mean corpuscular hemoglobin (mass per erythrocyte) 27 pg 25-34 Automated erythrocyte mean corpuscular hemoglobin concentration measurement ( mass/volume) 33 g/dL 32-36 Automated erythrocyte distribution width ratio 17.7 % 10.0-14.5 Automated blood platelet count (count/volume) 214 10*3/uL 130-400 Automated blood platelet mean volume measurement 9.7 [foz_us] 7.4-10.4 Automated blood neutrophils/100 leukocytes 52 % 42-75 Automated blood lymphocytes/100 leukocytes 25 % 12-44 Blood monocytes/100 leukocytes 17 % 0-12 Automated blood eosinophils/100 leukocytes 6 % 0-10 Automated blood basophils/100 leukocytes 0 % 0-10 Blood neutrophils automated count (number/volume) 2.3 10*3 1.8-7.8 Blood lymphocytes automated count (number/volume) 1.1 10*3 1.0-4.0 Blood monocytes automated count (number/volume) 0.8 10*3 0.0-1.0 Automated eosinophil count 0.3 10*3/uL 0.0-0.3 Automated blood basophil count (count/volume) 0.0 10*3/uL 0.0-0.1 Comprehensive metabolic panel - 05/29/16 04:30 Serum or plasma sodium measurement (moles/volume) 138 mmol/L 135-145 Serum or plasma potassium measurement (moles/volume) 3.7 mmol/L 3.6-5.0 Serum or plasma chloride measurement (moles/volume) 102 mmol/L 98-107 Carbon dioxide 25 mmol/L 21-32 Serum or plasma anion gap determination (moles/volume) 11 mmol/L 5-14 Serum or plasma urea nitrogen measurement (mass/volume) 9 mg/dL 7-18 Serum or plasma creatinine measurement (mass/volume) 0.73 mg/dL 0.60-1.30 Serum or plasma urea nitrogen/creatinine mass ratio 12 NRG Serum or plasma creatinine measurement with calculation of estimated glomerular filtration rate > NRG Serum or plasma glucose measurement (mass/volume) 104 mg/dL 70-105 Serum or plasma calcium measurement (mass/volume) 8.7 mg/dL 8.5-10.1 Serum or plasma total bilirubin measurement (mass/volume) 0.6 mg/dL 0.1-1.0 Serum or plasma alkaline phosphatase measurement (enzymatic activity/volume) 107 U/L 40-136 Serum or plasma aspartate aminotransferase measurement (enzymatic activity/ volume) 18 U/L 5-34 Serum or plasma alanine aminotransferase measurement (enzymatic activity/volume ) 27 U/L 0-55 Serum or plasma protein measurement (mass/volume) 5.4 g/dL 6.4-8.2 Serum or plasma albumin measurement (mass/volume) 2.7 g/dL 3.2-4.5 Complete blood count (CBC) with automated white blood cell (WBC) differential - 05/30/16 06:40 Blood leukocytes automated count (number/volume) 4.4 10*3/uL 4.3-11.0 Blood erythrocytes automated count (number/volume) 3.27 10*6/uL 4.35-5.85 Venous blood hemoglobin measurement (mass/volume) 8.6 g/dL 11.5-16.0 Blood hematocrit (volume fraction) 27 % 35-52 Automated erythrocyte mean corpuscular volume 82 [foz_us] 80-99 Automated erythrocyte mean corpuscular hemoglobin (mass per erythrocyte) 26 pg 25-34 Automated erythrocyte mean corpuscular hemoglobin concentration measurement ( mass/volume) 32 g/dL 32-36 Automated erythrocyte distribution width ratio 17.7 % 10.0-14.5 Automated blood platelet count (count/volume) 244 10*3/uL 130-400 Automated blood platelet mean volume measurement 9.5 [foz_us] 7.4-10.4 Automated blood neutrophils/100 leukocytes 58 % 42-75 Automated blood lymphocytes/100 leukocytes 20 % 12-44 Blood monocytes/100 leukocytes 17 % 0-12 Automated blood eosinophils/100 leukocytes 5 % 0-10 Automated blood basophils/100 leukocytes 1 % 0-10 Blood neutrophils automated count (number/volume) 2.6 10*3 1.8-7.8 Blood lymphocytes automated count (number/volume) 0.9 10*3 1.0-4.0 Blood monocytes automated count (number/volume) 0.8 10*3 0.0-1.0 Automated eosinophil count 0.2 10*3/uL 0.0-0.3 Automated blood basophil count (count/volume) 0.0 10*3/uL 0.0-0.1 Comprehensive metabolic panel - 05/30/16 06:40 Serum or plasma sodium measurement (moles/volume) 136 mmol/L 135-145 Serum or plasma potassium measurement (moles/volume) 3.8 mmol/L 3.6-5.0 Serum or plasma chloride measurement (moles/volume) 100 mmol/L 98-107 Carbon dioxide 27 mmol/L 21-32 Serum or plasma anion gap determination (moles/volume) 9 mmol/L 5-14 Serum or plasma urea nitrogen measurement (mass/volume) 11 mg/dL 7-18 Serum or plasma creatinine measurement (mass/volume) 0.71 mg/dL 0.60-1.30 Serum or plasma urea nitrogen/creatinine mass ratio 15 NRG Serum or plasma creatinine measurement with calculation of estimated glomerular filtration rate > NRG Serum or plasma glucose measurement (mass/volume) 107 mg/dL 70-105 Serum or plasma calcium measurement (mass/volume) 8.9 mg/dL 8.5-10.1 Serum or plasma total bilirubin measurement (mass/volume) 0.5 mg/dL 0.1-1.0 Serum or plasma alkaline phosphatase measurement (enzymatic activity/volume) 90 U/L 40-136 Serum or plasma aspartate aminotransferase measurement (enzymatic activity/ volume) 18 U/L 5-34 Serum or plasma alanine aminotransferase measurement (enzymatic activity/volume ) 19 U/L 0-55 Serum or plasma protein measurement (mass/volume) 5.2 g/dL 6.4-8.2 Serum or plasma albumin measurement (mass/volume) 2.6 g/dL 3.2-4.5 Complete blood count (CBC) with automated white blood cell (WBC) differential - 05/31/16 05:59 Blood leukocytes automated count (number/volume) 4.8 10*3/uL 4.3-11.0 Blood erythrocytes automated count (number/volume) 3.51 10*6/uL 4.35-5.85 Venous blood hemoglobin measurement (mass/volume) 9.2 g/dL 11.5-16.0 Blood hematocrit (volume fraction) 29 % 35-52 Automated erythrocyte mean corpuscular volume 83 [foz_us] 80-99 Automated erythrocyte mean corpuscular hemoglobin (mass per erythrocyte) 26 pg 25-34 Automated erythrocyte mean corpuscular hemoglobin concentration measurement ( mass/volume) 32 g/dL 32-36 Automated erythrocyte distribution width ratio 18.3 % 10.0-14.5 Automated blood platelet count (count/volume) 281 10*3/uL 130-400 Automated blood platelet mean volume measurement 9.3 [foz_us] 7.4-10.4 Automated blood neutrophils/100 leukocytes 60 % 42-75 Automated blood lymphocytes/100 leukocytes 19 % 12-44 Blood monocytes/100 leukocytes 16 % 0-12 Automated blood eosinophils/100 leukocytes 6 % 0-10 Automated blood basophils/100 leukocytes 0 % 0-10 Blood neutrophils automated count (number/volume) 2.9 10*3 1.8-7.8 Blood lymphocytes automated count (number/volume) 0.9 10*3 1.0-4.0 Blood monocytes automated count (number/volume) 0.8 10*3 0.0-1.0 Automated eosinophil count 0.3 10*3/uL 0.0-0.3 Automated blood basophil count (count/volume) 0.0 10*3/uL 0.0-0.1 RED CELLS LEUKO REDUCED AS1 - 06/27/16 11:10 RED CELLS LEUKO REDUCED AS1 TRANSFUSED 06/28/16 1121 NRG Blood type T Indirect antibody screen panel - 06/27/16 11:10 ABO+Rh group OP NRG Transfusion band number [id number] NRG Blood group antibody screen NEGATIVE NRG RED CELLS LEUKO REDUCED AS1 - 07/12/16 09:55 RED CELLS LEUKO REDUCED AS1 TRANSFUSED 07/12/16 1326 NRG Blood type T Indirect antibody screen panel - 07/12/16 09:55 ABO+Rh group OP NRG Transfusion band number [id number] NRG Blood group antibody screen NEGATIVE NRG Automated blood complete blood count (hemogram) panel - 07/24/16 11:04 Blood leukocytes automated count (number/volume) 4.5 10*3/uL 4.3-11.0 Blood erythrocytes automated count (number/volume) 2.89 10*6/uL 4.35-5.85 Venous blood hemoglobin measurement (mass/volume) 8.1 g/dL 11.5-16.0 Blood hematocrit (volume fraction) 26 % 35-52 Automated erythrocyte mean corpuscular volume 91 [foz_us] 80-99 Automated erythrocyte mean corpuscular hemoglobin (mass per erythrocyte) 28 pg 25-34 Automated erythrocyte mean corpuscular hemoglobin concentration measurement ( mass/volume) 31 g/dL 32-36 Automated erythrocyte distribution width ratio 15.7 % 10.0-14.5 Automated blood platelet count (count/volume) 273 10*3/uL 130-400 Automated blood platelet mean volume measurement 9.4 [foz_us] 7.4-10.4 PT panel in platelet poor plasma by coagulation assay - 07/24/16 11:04 Prothrombin time (PT) in platelet poor plasma by coagulation assay 12.9 s 12.2-14.7 INR in platelet poor plasma or blood by coagulation assay 1.0 0.8-1.4 Comprehensive metabolic panel - 07/24/16 11:04 Serum or plasma sodium measurement (moles/volume) 142 mmol/L 135-145 Serum or plasma potassium measurement (moles/volume) 4.4 mmol/L 3.6-5.0 Serum or plasma chloride measurement (moles/volume) 107 mmol/L 98-107 Carbon dioxide 27 mmol/L 21-32 Serum or plasma anion gap determination (moles/volume) 8 mmol/L 5-14 Serum or plasma urea nitrogen measurement (mass/volume) 12 mg/dL 7-18 Serum or plasma creatinine measurement (mass/volume) 0.90 mg/dL 0.60-1.30 Serum or plasma urea nitrogen/creatinine mass ratio 13 NRG Serum or plasma creatinine measurement with calculation of estimated glomerular filtration rate > NRG Serum or plasma glucose measurement (mass/volume) 100 mg/dL 70-105 Serum or plasma calcium measurement (mass/volume) 9.3 mg/dL 8.5-10.1 Serum or plasma total bilirubin measurement (mass/volume) 0.2 mg/dL 0.1-1.0 Serum or plasma alkaline phosphatase measurement (enzymatic activity/volume) 88 U/L 40-136 Serum or plasma aspartate aminotransferase measurement (enzymatic activity/ volume) 11 U/L 5-34 Serum or plasma alanine aminotransferase measurement (enzymatic activity/volume ) < U/L 0-55 Serum or plasma protein measurement (mass/volume) 6.4 g/dL 6.4-8.2 Serum or plasma albumin measurement (mass/volume) 3.6 g/dL 3.2-4.5 RED CELLS LEUKO REDUCED AS1 - 07/24/16 11:04 RED CELLS LEUKO REDUCED AS1 TRANSFUSED 07/24/16 1230 NR Blood type T Indirect antibody screen panel - 07/24/16 11:04 ABO+Rh group OP NR Transfusion band number [id number] NRG Blood group antibody screen NEGATIVE NRG Complete blood count (CBC) with automated white blood cell (WBC) differential - 07/25/16 04:25 Blood leukocytes automated count (number/volume) 4.9 10*3/uL 4.3-11.0 Blood erythrocytes automated count (number/volume) 3.49 10*6/uL 4.35-5.85 Venous blood hemoglobin measurement (mass/volume) 9.6 g/dL 11.5-16.0 Blood hematocrit (volume fraction) 31 % 35-52 Automated erythrocyte mean corpuscular volume 87 [foz_us] 80-99 Automated erythrocyte mean corpuscular hemoglobin (mass per erythrocyte) 28 pg 25-34 Automated erythrocyte mean corpuscular hemoglobin concentration measurement ( mass/volume) 32 g/dL 32-36 Automated erythrocyte distribution width ratio 16.8 % 10.0-14.5 Automated blood platelet count (count/volume) 245 10*3/uL 130-400 Automated blood platelet mean volume measurement 9.6 [foz_us] 7.4-10.4 Automated blood neutrophils/100 leukocytes 61 % 42-75 Automated blood lymphocytes/100 leukocytes 23 % 12-44 Blood monocytes/100 leukocytes 11 % 0-12 Automated blood eosinophils/100 leukocytes 5 % 0-10 Automated blood basophils/100 leukocytes 0 % 0-10 Blood neutrophils automated count (number/volume) 3.0 10*3 1.8-7.8 Blood lymphocytes automated count (number/volume) 1.1 10*3 1.0-4.0 Blood monocytes automated count (number/volume) 0.6 10*3 0.0-1.0 Automated eosinophil count 0.2 10*3/uL 0.0-0.3 Automated blood basophil count (count/volume) 0.0 10*3/uL 0.0-0.1 RED CELLS LEUKO REDUCED AS1 - 12/26/16 13:10 RED CELLS LEUKO REDUCED AS1 TRANSFUSED 12/28/16 1641 NRG Blood type T Indirect antibody screen panel - 12/26/16 13:10 ABO+Rh group OP NRG Transfusion band number [id number] NRG Blood group antibody screen NEGATIVE NRG Complete blood count (CBC) with automated white blood cell (WBC) differential - 12/26/16 13:35 Blood leukocytes automated count (number/volume) 5.0 10*3/uL 4.3-11.0 Blood erythrocytes automated count (number/volume) 2.68 10*6/uL 4.35-5.85 Venous blood hemoglobin measurement (mass/volume) 5.7 g/dL 11.5-16.0 Blood hematocrit (volume fraction) 21 % 35-52 Automated erythrocyte mean corpuscular volume 77 [foz_us] 80-99 Automated erythrocyte mean corpuscular hemoglobin (mass per erythrocyte) 21 pg 25-34 Automated erythrocyte mean corpuscular hemoglobin concentration measurement ( mass/volume) 28 g/dL 32-36 Automated erythrocyte distribution width ratio 16.9 % 10.0-14.5 Automated blood platelet count (count/volume) 273 10*3/uL 130-400 Automated blood platelet mean volume measurement 9.6 [foz_us] 7.4-10.4 Automated blood neutrophils/100 leukocytes 49 % 42-75 Automated blood lymphocytes/100 leukocytes 31 % 12-44 Blood monocytes/100 leukocytes 12 % 0-12 Automated blood eosinophils/100 leukocytes 7 % 0-10 Automated blood basophils/100 leukocytes 1 % 0-10 Blood neutrophils automated count (number/volume) 2.4 10*3 1.8-7.8 Blood lymphocytes automated count (number/volume) 1.6 10*3 1.0-4.0 Blood monocytes automated count (number/volume) 0.6 10*3 0.0-1.0 Automated eosinophil count 0.4 10*3/uL 0.0-0.3 Automated blood basophil count (count/volume) 0.0 10*3/uL 0.0-0.1 Serum or plasma lithium measurement (moles/volume) - 12/26/16 13:35 BNP level 1228.6 pg/mL <100.0 Automated blood complete blood count (hemogram) panel - 12/27/16 05:45 Blood leukocytes automated count (number/volume) 3.9 10*3/uL 4.3-11.0 Blood erythrocytes automated count (number/volume) 3.53 10*6/uL 4.35-5.85 Venous blood hemoglobin measurement (mass/volume) 8.2 g/dL 11.5-16.0 Blood hematocrit (volume fraction) 27 % 35-52 Automated erythrocyte mean corpuscular volume 77 [foz_us] 80-99 Automated erythrocyte mean corpuscular hemoglobin (mass per erythrocyte) 23 pg 25-34 Automated erythrocyte mean corpuscular hemoglobin concentration measurement ( mass/volume) 30 g/dL 32-36 Automated erythrocyte distribution width ratio 16.5 % 10.0-14.5 Automated blood platelet count (count/volume) 263 10*3/uL 130-400 Automated blood platelet mean volume measurement 10.1 [foz_us] 7.4-10.4 Comprehensive metabolic panel - 12/27/16 05:45 Serum or plasma sodium measurement (moles/volume) 138 mmol/L 135-145 Serum or plasma potassium measurement (moles/volume) 4.6 mmol/L 3.6-5.0 Serum or plasma chloride measurement (moles/volume) 106 mmol/L 98-107 Carbon dioxide 21 mmol/L 21-32 Serum or plasma anion gap determination (moles/volume) 11 mmol/L 5-14 Serum or plasma urea nitrogen measurement (mass/volume) 23 mg/dL 7-18 Serum or plasma creatinine measurement (mass/volume) 0.97 mg/dL 0.60-1.30 Serum or plasma urea nitrogen/creatinine mass ratio 24 NRG Serum or plasma creatinine measurement with calculation of estimated glomerular filtration rate 56 NRG Serum or plasma glucose measurement (mass/volume) 153 mg/dL 70-105 Serum or plasma calcium measurement (mass/volume) 9.2 mg/dL 8.5-10.1 Serum or plasma total bilirubin measurement (mass/volume) 0.5 mg/dL 0.1-1.0 Serum or plasma alkaline phosphatase measurement (enzymatic activity/volume) 78 U/L 40-136 Serum or plasma aspartate aminotransferase measurement (enzymatic activity/ volume) 21 U/L 5-34 Serum or plasma alanine aminotransferase measurement (enzymatic activity/volume ) 10 U/L 0-55 Serum or plasma protein measurement (mass/volume) 6.9 g/dL 6.4-8.2 Serum or plasma albumin measurement (mass/volume) 3.7 g/dL 3.2-4.5 Complete blood count (CBC) with automated white blood cell (WBC) differential - 12/28/16 05:44 Blood leukocytes automated count (number/volume) 9.6 10*3/uL 4.3-11.0 Blood erythrocytes automated count (number/volume) 3.04 10*6/uL 4.35-5.85 Venous blood hemoglobin measurement (mass/volume) 7.0 g/dL 11.5-16.0 Blood hematocrit (volume fraction) 24 % 35-52 Automated erythrocyte mean corpuscular volume 78 [[facility]] 80-99 Automated erythrocyte mean corpuscular hemoglobin (mass per erythrocyte) 23 pg 25-34 Automated erythrocyte mean corpuscular hemoglobin concentration measurement ( mass/volume) 30 g/dL 32-36 Automated erythrocyte distribution width ratio 17.6 % 10.0-14.5 Automated blood platelet count (count/volume) 260 10*3/uL 130-400 Automated blood platelet mean volume measurement 10.2 [foz_us] 7.4-10.4 Automated blood neutrophils/100 leukocytes 85 % 42-75 Automated blood lymphocytes/100 leukocytes 7 % 12-44 Blood monocytes/100 leukocytes 8 % 0-12 Automated blood eosinophils/100 leukocytes 0 % 0-10 Automated blood basophils/100 leukocytes 0 % 0-10 Blood neutrophils automated count (number/volume) 8.2 10*3 1.8-7.8 Blood lymphocytes automated count (number/volume) 0.7 10*3 1.0-4.0 Blood monocytes automated count (number/volume) 0.8 10*3 0.0-1.0 Automated eosinophil count 0.0 10*3/uL 0.0-0.3 Automated blood basophil count (count/volume) 0.0 10*3/uL 0.0-0.1 Blood manual differential performed detection - 12/28/16 05:44 Blood monocytes/100 leukocytes 3 % NRG Manual blood segmented neutrophils/100 leukocytes 90 % NRG Blood band neutrophils/100 leukocytes 0 % NRG Manual blood lymphocytes/100 leukocytes 6 % NRG Manual eosinophils/100 leukocytes in nose 0 % NRG Manual blood basophils/100 leukocytes 0 % NRG Blood lymphocytes variant/100 leukocytes 1 % NRG Blood polychromasia detection by light microscopy SLIGHT NRG Blood anisocytosis detection by light microscopy MODERATE NRG Blood macrocytes detection by light microscopy MODERATE NRG Blood hypochromia detection by light microscopy MARKED NRG Blood microcytes detection by light microscopy SLIGHT NRG Blood target cells detection by light microscopy SLIGHT NRG Blood dacrocytes detection by light microscopy SLIGHT NRG Whole blood basic metabolic panel - 12/28/16 05:44 Serum or plasma sodium measurement (moles/volume) 138 mmol/L 135-145 Serum or plasma potassium measurement (moles/volume) 4.3 mmol/L 3.6-5.0 Serum or plasma chloride measurement (moles/volume) 104 mmol/L 98-107 Carbon dioxide 22 mmol/L 21-32 Serum or plasma anion gap determination (moles/volume) 12 mmol/L 5-14 Serum or plasma urea nitrogen measurement (mass/volume) 21 mg/dL 7-18 Serum or plasma creatinine measurement (mass/volume) 0.92 mg/dL 0.60-1.30 Serum or plasma urea nitrogen/creatinine mass ratio 23 NRG Serum or plasma creatinine measurement with calculation of estimated glomerular filtration rate 60 NRG Serum or plasma glucose measurement (mass/volume) 143 mg/dL 70-105 Serum or plasma calcium measurement (mass/volume) 8.8 mg/dL 8.5-10.1 Magnesium - 12/28/16 05:44 Magnesium 2.1 mg/dL 1.8-2.4 Complete blood count (CBC) with automated white blood cell (WBC) differential - 12/29/16 05:36 Blood leukocytes automated count (number/volume) 9.1 10*3/uL 4.3-11.0 Blood erythrocytes automated count (number/volume) 3.85 10*6/uL 4.35-5.85 Venous blood hemoglobin measurement (mass/volume) 9.3 g/dL 11.5-16.0 Blood hematocrit (volume fraction) 30 % 35-52 Automated erythrocyte mean corpuscular volume 78 [foz_us] 80-99 Automated erythrocyte mean corpuscular hemoglobin (mass per erythrocyte) 24 pg 25-34 Automated erythrocyte mean corpuscular hemoglobin concentration measurement ( mass/volume) 31 g/dL 32-36 Automated erythrocyte distribution width ratio 18.6 % 10.0-14.5 Automated blood platelet count (count/volume) 256 10*3/uL 130-400 Automated blood platelet mean volume measurement 10.4 [foz_us] 7.4-10.4 Automated blood neutrophils/100 leukocytes 88 % 42-75 Automated blood lymphocytes/100 leukocytes 6 % 12-44 Blood monocytes/100 leukocytes 6 % 0-12 Automated blood eosinophils/100 leukocytes 0 % 0-10 Automated blood basophils/100 leukocytes 0 % 0-10 Blood neutrophils automated count (number/volume) 8.0 10*3 1.8-7.8 Blood lymphocytes automated count (number/volume) 0.6 10*3 1.0-4.0 Blood monocytes automated count (number/volume) 0.6 10*3 0.0-1.0 Automated eosinophil count 0.0 10*3/uL 0.0-0.3 Automated blood basophil count (count/volume) 0.0 10*3/uL 0.0-0.1 Comprehensive metabolic panel - 12/29/16 05:36 Serum or plasma sodium measurement (moles/volume) 137 mmol/L 135-145 Serum or plasma potassium measurement (moles/volume) 4.5 mmol/L 3.6-5.0 Serum or plasma chloride measurement (moles/volume) 106 mmol/L 98-107 Carbon dioxide 22 mmol/L 21-32 Serum or plasma anion gap determination (moles/volume) 9 mmol/L 5-14 Serum or plasma urea nitrogen measurement (mass/volume) 24 mg/dL 7-18 Serum or plasma creatinine measurement (mass/volume) 1.02 mg/dL 0.60-1.30 Serum or plasma urea nitrogen/creatinine mass ratio 24 NRG Serum or plasma creatinine measurement with calculation of estimated glomerular filtration rate 53 NRG Serum or plasma glucose measurement (mass/volume) 136 mg/dL 70-105 Serum or plasma calcium measurement (mass/volume) 9.1 mg/dL 8.5-10.1 Serum or plasma total bilirubin measurement (mass/volume) 0.4 mg/dL 0.1-1.0 Serum or plasma alkaline phosphatase measurement (enzymatic activity/volume) 67 U/L 40-136 Serum or plasma aspartate aminotransferase measurement (enzymatic activity/ volume) 28 U/L 5-34 Serum or plasma alanine aminotransferase measurement (enzymatic activity/volume ) 22 U/L 0-55 Serum or plasma protein measurement (mass/volume) 6.0 g/dL 6.4-8.2 Serum or plasma albumin measurement (mass/volume) 3.6 g/dL 3.2-4.5 Complete blood count (CBC) with automated white blood cell (WBC) differential - 12/30/16 05:12 Blood leukocytes automated count (number/volume) 7.7 10*3/uL 4.3-11.0 Blood erythrocytes automated count (number/volume) 3.62 10*6/uL 4.35-5.85 Venous blood hemoglobin measurement (mass/volume) 8.8 g/dL 11.5-16.0 Blood hematocrit (volume fraction) 29 % 35-52 Automated erythrocyte mean corpuscular volume 80 [foz_us] 80-99 Automated erythrocyte mean corpuscular hemoglobin (mass per erythrocyte) 24 pg 25-34 Automated erythrocyte mean corpuscular hemoglobin concentration measurement ( mass/volume) 31 g/dL 32-36 Automated erythrocyte distribution width ratio 18.9 % 10.0-14.5 Automated blood platelet count (count/volume) 252 10*3/uL 130-400 Automated blood platelet mean volume measurement 10.0 [foz_us] 7.4-10.4 Automated blood neutrophils/100 leukocytes 82 % 42-75 Automated blood lymphocytes/100 leukocytes 8 % 12-44 Blood monocytes/100 leukocytes 10 % 0-12 Automated blood eosinophils/100 leukocytes 0 % 0-10 Automated blood basophils/100 leukocytes 0 % 0-10 Blood neutrophils automated count (number/volume) 6.3 10*3 1.8-7.8 Blood lymphocytes automated count (number/volume) 0.6 10*3 1.0-4.0 Blood monocytes automated count (number/volume) 0.7 10*3 0.0-1.0 Automated eosinophil count 0.0 10*3/uL 0.0-0.3 Automated blood basophil count (count/volume) 0.0 10*3/uL 0.0-0.1 Comprehensive metabolic panel - 12/30/16 05:12 Serum or plasma sodium measurement (moles/volume) 136 mmol/L 135-145 Serum or plasma potassium measurement (moles/volume) 4.4 mmol/L 3.6-5.0 Serum or plasma chloride measurement (moles/volume) 105 mmol/L 98-107 Carbon dioxide 23 mmol/L 21-32 Serum or plasma anion gap determination (moles/volume) 8 mmol/L 5-14 Serum or plasma urea nitrogen measurement (mass/volume) 21 mg/dL 7-18 Serum or plasma creatinine measurement (mass/volume) 0.84 mg/dL 0.60-1.30 Serum or plasma urea nitrogen/creatinine mass ratio 25 NRG Serum or plasma creatinine measurement with calculation of estimated glomerular filtration rate > NRG Serum or plasma glucose measurement (mass/volume) 134 mg/dL 70-105 Serum or plasma calcium measurement (mass/volume) 9.0 mg/dL 8.5-10.1 Serum or plasma total bilirubin measurement (mass/volume) 0.4 mg/dL 0.1-1.0 Serum or plasma alkaline phosphatase measurement (enzymatic activity/volume) 55 U/L 40-136 Serum or plasma aspartate aminotransferase measurement (enzymatic activity/ volume) 19 U/L 5-34 Serum or plasma alanine aminotransferase measurement (enzymatic activity/volume ) 24 U/L 0-55 Serum or plasma protein measurement (mass/volume) 5.9 g/dL 6.4-8.2 Serum or plasma albumin measurement (mass/volume) 3.3 g/dL 3.2-4.5 Stool occult blood screen - 12/30/16 16:16 Stool gastrointestinal hemoglobin detection NEGATIVE NEGATIVE Automated blood complete blood count (hemogram) panel - 12/31/16 05:37 Blood leukocytes automated count (number/volume) 8.3 10*3/uL 4.3-11.0 Blood erythrocytes automated count (number/volume) 3.67 10*6/uL 4.35-5.85 Venous blood hemoglobin measurement (mass/volume) 8.8 g/dL 11.5-16.0 Blood hematocrit (volume fraction) 29 % 35-52 Automated erythrocyte mean corpuscular volume 80 [foz_us] 80-99 Automated erythrocyte mean corpuscular hemoglobin (mass per erythrocyte) 24 pg 25-34 Automated erythrocyte mean corpuscular hemoglobin concentration measurement ( mass/volume) 30 g/dL 32-36 Automated erythrocyte distribution width ratio 19.5 % 10.0-14.5 Automated blood platelet count (count/volume) 249 10*3/uL 130-400 Automated blood platelet mean volume measurement 10.2 [foz_us] 7.4-10.4 Whole blood basic metabolic panel - 12/31/16 05:37 Serum or plasma sodium measurement (moles/volume) 139 mmol/L 135-145 Serum or plasma potassium measurement (moles/volume) 3.8 mmol/L 3.6-5.0 Serum or plasma chloride measurement (moles/volume) 106 mmol/L 98-107 Carbon dioxide 23 mmol/L 21-32 Serum or plasma anion gap determination (moles/volume) 10 mmol/L 5-14 Serum or plasma urea nitrogen measurement (mass/volume) 31 mg/dL 7-18 Serum or plasma creatinine measurement (mass/volume) 1.03 mg/dL 0.60-1.30 Serum or plasma urea nitrogen/creatinine mass ratio 30 NRG Serum or plasma creatinine measurement with calculation of estimated glomerular filtration rate 53 NRG Serum or plasma glucose measurement (mass/volume) 97 mg/dL 70-105 Serum or plasma calcium measurement (mass/volume) 9.1 mg/dL 8.5-10.1 Complete blood count (CBC) with automated white blood cell (WBC) differential - 01/01/17 06:32 Blood leukocytes automated count (number/volume) 7.3 10*3/uL 4.3-11.0 Blood erythrocytes automated count (number/volume) 3.89 10*6/uL 4.35-5.85 Venous blood hemoglobin measurement (mass/volume) 9.4 g/dL 11.5-16.0 Blood hematocrit (volume fraction) 31 % 35-52 Automated erythrocyte mean corpuscular volume 80 [foz_us] 80-99 Automated erythrocyte mean corpuscular hemoglobin (mass per erythrocyte) 24 pg 25-34 Automated erythrocyte mean corpuscular hemoglobin concentration measurement ( mass/volume) 30 g/dL 32-36 Automated erythrocyte distribution width ratio 20.1 % 10.0-14.5 Automated blood platelet count (count/volume) 258 10*3/uL 130-400 Automated blood platelet mean volume measurement 10.0 [foz_us] 7.4-10.4 Automated blood neutrophils/100 leukocytes 75 % 42-75 Automated blood lymphocytes/100 leukocytes 13 % 12-44 Blood monocytes/100 leukocytes 12 % 0-12 Automated blood eosinophils/100 leukocytes 0 % 0-10 Automated blood basophils/100 leukocytes 0 % 0-10 Blood neutrophils automated count (number/volume) 5.4 10*3 1.8-7.8 Blood lymphocytes automated count (number/volume) 0.9 10*3 1.0-4.0 Blood monocytes automated count (number/volume) 0.9 10*3 0.0-1.0 Automated eosinophil count 0.0 10*3/uL 0.0-0.3 Automated blood basophil count (count/volume) 0.0 10*3/uL 0.0-0.1 Complete urinalysis with reflex to culture - 01/09/17 15:15 Urine color determination YELLOW NRG Urine clarity determination CLEAR NRG Urine pH measurement by test strip 7 5-9 Specific gravity of urine by test strip 1.010 1.016- 1.022 Urine protein assay by test strip, semi-quantitative NEGATIVE NEGATIVE Urine glucose detection by automated test strip NEGATIVE NEGATIVE Erythrocytes detection in urine sediment by light microscopy NEGATIVE NEGATIVE Urine ketones detection by automated test strip NEGATIVE NEGATIVE Urine nitrite detection by test strip NEGATIVE NEGATIVE Urine total bilirubin detection by test strip NEGATIVE NEGATIVE Urine urobilinogen measurement by automated test strip (mass/volume) NORMAL NORMAL Urine leukocyte esterase detection by dipstick NEGATIVE NEGATIVE Automated urine sediment erythrocyte count by microscopy (number/high power field) NONE NRG Automated urine sediment leukocyte count by microscopy (number/high power field ) NONE NRG Bacteria detection in urine sediment by light microscopy NEGATIVE NRG Squamous epithelial cells detection in urine sediment by light microscopy 0-2 NRG Crystals detection in urine sediment by light microscopy NONE NRG Casts detection in urine sediment by light microscopy NONE NRG Mucus detection in urine sediment by light microscopy NEGATIVE NRG Complete urinalysis with reflex to culture NO NRG Complete blood count (CBC) with automated white blood cell (WBC) differential - 01/09/17 15:35 Blood leukocytes automated count (number/volume) 11.1 10*3/uL 4.3-11.0 Blood erythrocytes automated count (number/volume) 4.01 10*6/uL 4.35-5.85 Venous blood hemoglobin measurement (mass/volume) 10.1 g/dL 11.5-16.0 Blood hematocrit (volume fraction) 32 % 35-52 Automated erythrocyte mean corpuscular volume 80 [foz_us] 80-99 Automated erythrocyte mean corpuscular hemoglobin (mass per erythrocyte) 25 pg 25-34 Automated erythrocyte mean corpuscular hemoglobin concentration measurement ( mass/volume) 31 g/dL 32-36 Automated erythrocyte distribution width ratio 21.6 % 10.0-14.5 Automated blood platelet count (count/volume) 312 10*3/uL 130-400 Automated blood platelet mean volume measurement 9.5 [foz_us] 7.4-10.4 Automated blood neutrophils/100 leukocytes 73 % 42-75 Automated blood lymphocytes/100 leukocytes 18 % 12-44 Blood monocytes/100 leukocytes 9 % 0-12 Automated blood eosinophils/100 leukocytes 1 % 0-10 Automated blood basophils/100 leukocytes 0 % 0-10 Blood neutrophils automated count (number/volume) 8.0 10*3 1.8-7.8 Blood lymphocytes automated count (number/volume) 1.9 10*3 1.0-4.0 Blood monocytes automated count (number/volume) 1.0 10*3 0.0-1.0 Automated eosinophil count 0.1 10*3/uL 0.0-0.3 Automated blood basophil count (count/volume) 0.0 10*3/uL 0.0-0.1 Blood lactic acid measurement (moles/volume) - 01/09/17 15:35 Blood lactic acid measurement (moles/volume) 0.90 mmol/L 0.50-2.00 Comprehensive metabolic panel - 01/09/17 15:35 Serum or plasma sodium measurement (moles/volume) 130 mmol/L 135-145 Serum or plasma potassium measurement (moles/volume) 4.4 mmol/L 3.6-5.0 Serum or plasma chloride measurement (moles/volume) 93 mmol/L 98-107 Carbon dioxide 29 mmol/L 21-32 Serum or plasma anion gap determination (moles/volume) 8 mmol/L 5-14 Serum or plasma urea nitrogen measurement (mass/volume) 17 mg/dL 7-18 Serum or plasma creatinine measurement (mass/volume) 0.91 mg/dL 0.60-1.30 Serum or plasma urea nitrogen/creatinine mass ratio 19 NRG Serum or plasma creatinine measurement with calculation of estimated glomerular filtration rate > NRG Serum or plasma glucose measurement (mass/volume) 84 mg/dL 70-105 Serum or plasma calcium measurement (mass/volume) 9.2 mg/dL 8.5-10.1 Serum or plasma total bilirubin measurement (mass/volume) 0.3 mg/dL 0.1-1.0 Serum or plasma alkaline phosphatase measurement (enzymatic activity/volume) 69 U/L 40-136 Serum or plasma aspartate aminotransferase measurement (enzymatic activity/ volume) 12 U/L 5-34 Serum or plasma alanine aminotransferase measurement (enzymatic activity/volume ) 11 U/L 0-55 Serum or plasma protein measurement (mass/volume) 6.4 g/dL 6.4-8.2 Serum or plasma albumin measurement (mass/volume) 3.6 g/dL 3.2-4.5 Bacterial blood culture - 01/09/17 15:35 Bacterial blood culture NG NRG Bacterial blood culture - 01/09/17 15:41 Bacterial blood culture NG NRG Encounters ACCT No. Visit Date/Time Discharge Status Pt. Type Provider Facility Loc./Unit Complaint [id number] 01/14/2017 13:01:00 01/14/2017 23:59:59 CLS Outpatient ORENDER DO, KELSIE S [facility] RAD SCREENING [id number] 01/09/2017 14:45:00 01/09/2017 17:24:00 DIS Emergency IRA RAE, CLEO S [facility] ER FALL [id number] 12/26/2016 11:51:00 01/01/2017 14:52:00 DIS Inpatient ORENDER DO, KELSIE S [facility] 4TH COPD, PNEUMONIA [id number] 12/05/2016 11:05:00 12/05/2016 23:59:59 CLS Outpatient ORENDER DO, KELSIE S [facility] RAD COUGH,DYSPNEA [id number] 11/22/2016 09:39:00 11/22/2016 23:59:59 CLS Outpatient ORENDER DO, KELSIE S [facility] CARD CARDIAC MURMUR [id number] 11/15/2016 09:00:00 11/15/2016 23:59:59 CLS Outpatient ORENDER DO, KELSIE S [facility] RAD COUGH,COPD [id number] 09/26/2016 00:12:00 09/26/2016 23:59:59 CLS Preadmit ORENDER DO, KELSIE S [facility] ACUTE CHRONIC ANEMIA [id number] 06/28/2016 07:52:00 09/25/2016 00:01:00 DIS Outpatient ORENDER DO, KELSIE S [facility] ACUTE CHRONIC ANEMIA [id number] 07/31/2016 10:50:00 07/31/2016 14:10:00 DIS Outpatient RAFIQ CUELLAR MD [facility] ENDO PREVIOUS HX POLYPS; CHRONIC GI BLEED [id number] 07/24/2016 10:42:00 07/25/2016 12:16:00 DIS Outpatient RAFIQ CUELLAR MD [facility] ANEMIA,GERD [id number] 07/12/2016 09:16:00 07/12/2016 23:59:59 CLS Outpatient ELI PEARSON DOQUELINE S [facility] ANEMIA [id number] 05/23/2016 22:50:00 05/31/2016 13:00:00 DIS Inpatient MICHEL MONCADA, KELSIE S [facility] 4TH L HIP FX;COPD [id number] 05/29/2016 10:05:00 05/29/2016 23:59:59 CLS Preadmit ELI PEARSON DOQUELINE S SWB [id number] 04/25/2016 08:04:00 04/25/2016 23:59:59 CLS Outpatient MICHEL MONCADA KELSIE S [facility] ACUTE CHARONIC ANEMIA [id number] 02/02/2016 11:30:00 02/03/2016 11:00:00 DIS Inpatient MICHEL MONCADA KELSIE S [facility] 4TH ISCHEMIC STROKE [id number] 01/30/2016 07:59:00 01/30/2016 23:59:59 CLS Outpatient ELI PEARSON DOQUELINE S [facility] RAD L SIDED WEAKNESS, HX OF CVA [id number] 01/28/2016 12:58:00 01/28/2016 14:53:00 DIS Emergency YOLANDA DOYLE DO [facility] ER WEAKNESS [id number] 09/12/2015 13:00:00 10/04/2015 10:20:00 DIS Inpatient NIKKIE RAE, SANDRA Sheikh [facility] IRF HIP FX [id number] 09/09/2015 15:10:00 09/12/2015 13:00:00 DIS Inpatient ELI PEARSON DOQUELINE S [facility] 4TH HIP FX [id number] 01/27/2015 10:06:00 01/27/2015 23:59:59 CLS Outpatient JANI DUNLAP [facility] RAD COPD,R PNEUMONIA [id number] 09/30/2014 13:49:00 09/30/2014 23:59:59 CLS Outpatient CATRACHO RAE, AMANDA Diallo [facility] CARD CAD,HTN,HLP [id number] 09/28/2014 08:43:00 09/28/2014 23:59:59 CLS Outpatient CATRACHO RAE, AMANDA Diallo [facility] CARD CAD,HTN,HLP [id number] 09/05/2014 10:42:00 09/05/2014 23:59:59 CLS Outpatient MIRNA DAN PHYSICIAN ASSISTANT CERTIFIED [facility] RAD LEFT SHOULDER PAIN [id number] 08/24/2014 15:40:00 08/25/2014 15:07:00 DIS Inpatient ORENDER ELI MONCADAKELSIE S [facility] 4TH UTI-GENERALIZED WEAKNESS [id number] 07/06/2014 13:39:00 07/25/2014 10:22:00 DIS Outpatient ELI PEARSON DOQUELINE S [facility] REHAB CVA [id number] 07/22/2014 07:56:00 07/22/2014 23:59:59 CLS Preadmit ELI PEARSON DOQUELINE S [facility] HH ANEMIA [id number] 07/22/2014 08:09:00 07/22/2014 15:35:00 DIS Emergency NICOL RAE, SMITH Crystal [facility] ER LEFT HIP PAIN [id number] 07/13/2014 16:27:00 07/16/2014 08:58:00 DIS Inpatient ELI PEARSON DOQUELINE S [facility] ICU GI BLEED [id number] 06/02/2014 13:19:00 06/17/2014 10:00:00 DIS Inpatient NIKKIE RAE, SANDRA Sheikh [facility] IRF WEAKNESS [id number] 02/03/2013 09:22:00 02/03/2013 23:59:59 CLS Outpatient JOANA MARTELL [facility] RAD SCREENING [id number] 09/07/2012 10:32:00 09/07/2012 23:59:59 CLS Outpatient JOANA MARTELL [facility] ONC [id number] 05/05/2017 13:55:00 ACT Outpatient GRACE SORENSON APRN [facility] RAD COUGH,SOB [id number] 07/29/2016 05:53:00 Document Registration [id number] 06/27/2014 08:09:00 Document Registration [id number] 06/27/2014 08:09:00 Document Registration [id number] 06/27/2014 08:08:00 Document Registration [id number] 06/27/2014 08:08:00 Document Registration [id number] 06/27/2014 08:08:00 Document Registration [id number] 06/17/2014 10:11:00 Document Registration [id number] 05/30/2014 05:59:00 Document Registration [id number] 05/11/2014 11:02:00 Document Registration [id number] 05/26/2012 10:13:00 Document Registration [id number] 02/17/2012 09:50:00 Document Registration [id number] 02/03/2012 10:53:00 Document Registration [id number] 09/12/2011 13:59:00 Document Registration [id number] 08/14/2011 12:56:00 Document Registration [id number] 08/13/2011 08:19:00 Document Registration [id number] 02/01/2011 13:54:00 Document Registration [id number] 08/07/2010 11:09:00 Document Registration [id number] 05/09/2010 07:14:00 Document Registration [id number] 05/02/2010 07:32:00 Document Registration [id number] 01/08/2010 08:49:00 Document Registration [id number] 09/13/2009 06:19:00 Document Registration [id number] 09/12/2009 15:25:00 Document Registration [id number] 07/26/2009 19:36:00 Document Registration [id number] 07/19/2009 07:57:00 Document Registration [id number] 07/03/2009 11:02:00 Document Registration [id number] 06/13/2009 15:19:00 Document Registration [id number] 05/25/2009 07:04:00 Document Registration [id number] 05/24/2009 12:22:00 Document Registration [id number] 01/02/2009 14:34:00 Document Registration
[2017-05-12] MEDS ORDERED: methylPREDNISolone 125 MG (Solu-MEDROL) VIAL IV STA (21:03)
[2017-05-12] MEDS ORDERED: FUROSEMIDE 40 MG/4 ML INJ (LASIX) IV STA (21:03)
[2017-05-12] MEDS ORDERED: RT-ALBUTEROL/IPRATROPIUM 3 ML (DUONEB) VIAL INH ONE (21:15)
[2017-05-12] MEDS ORDERED: DEXAMETHASONE 4 MG/ML SDV (DECADRON) IH ONE (21:15)
[2017-05-12 21:20] LABS: BASOPHILS % (AUTO) 0 % (0-10); EOSINOPHILS % (AUTO) 0 % (0-10); HEMATOCRIT 27 % (35-52); HEMOGLOBIN 8.5 G/DL (11.5-16.0); LYMPHOCYTES # (AUTO) 0.3 X 10^3 (1.0-4.0); LYMPHOCYTES % (AUTO) 6 % (12-44); MEAN CORPUSCULAR HEMOGLOBIN 28 PG (25-34); MEAN CORPUSCULAR HGB CONC 32 G/DL (32-36); MEAN CORPUSCULAR VOLUME 88 FL (80-99); MEAN PLATELET VOLUME 9.6 FL (7.4-10.4); MONOCYTES # (AUTO) 0.1 X 10^3 (0.0-1.0); MONOCYTES % (AUTO) 2 % (0-12); NEUTROPHILS # (AUTO) 4.9 X 10^3 (1.8-7.8); NEUTROPHILS % (AUTO) 91 % (42-75); PLATELET COUNT 261 10^3/uL (130-400); RED BLOOD COUNT 3.02 10^6/uL (4.35-5.85); RED CELL DISTRIBUTION WIDTH 14.4 % (10.0-14.5); WHITE BLOOD COUNT 5.3 10^3/uL (4.3-11.0)
[2017-05-12 21:21] LABS: BILIRUBIN,URINE NEGATIVE (NEGATIVE); CLARITY,URINE CLEAR; COLOR,URINE YELLOW; GLUCOSE, URINE (UA) NEGATIVE (NEGATIVE); KETONES,URINE NEGATIVE (NEGATIVE); LEUKOCYTE ESTERASE ,URINE 1+ (NEGATIVE); NITRITE,URINE NEGATIVE (NEGATIVE); PH,URINE 5 (5-9); PROTEIN,URINE 2+ (NEGATIVE); UROBILINOGEN,URINE NORMAL (NORMAL)
[2017-05-12 21:26] VITALS: BP 137/68
[2017-05-12 21:29] LABS: HYALINE CASTS, URINE >50 /LPF
[2017-05-12 21:32] LABS: INR 1.1 (0.8-1.4); PROTHROMBIN TIME PATIENT 14.2 SEC (12.2-14.7)
[2017-05-12 21:33] LABS: ABG BASE EXCESS -5.6 MMOL/L (-2.5-2.5); ABG OXYGEN SATURATION 99 % (94-100); ABG PCO2 45 MMHG (35-45); ABG PO2 131 MMHG (79-93); ABG TCO2 21.9 MMOL/L (21.0-31.0)
[2017-05-12 21:35] LABS: ABG PH 7.27 (7.37-7.43); ALLENS TEST POSITIVE; INSPIRED O2 40% BIPAP; PATIENT TEMP 96.2; VENTILATOR NO
--- NOTE | 2017-05-12 21:38 | Diagnostic Imaging Report ---
EXAMINATION: Chest radiograph, portable AP view. DATE: 05/12/2017 at 2124 hours. INDICATION: 72-year-old female, shortness of breath. COMPARISON: 05/05/2017 FINDINGS: The heart is mildly enlarged. There is no identified pneumothorax. There is no large pleural effusion. There are bilateral predominantly interstitial opacities which are increased since comparison exam. IMPRESSION: 1. Mild cardiomegaly with bilateral interstitial opacities most likely reflecting pulmonary interstitial edema. Atypical infectious etiology would be the primary differential diagnostic consideration. Dictated by: Dictated on workstation # [id number]
[2017-05-12 21:40] LABS: ALANINE AMINOTRANSFERASE 31 U/L (0-55); ALKALINE PHOSPHATASE 83 U/L (40-136); BILIRUBIN,TOTAL 0.3 MG/DL (0.1-1.0); BUN/CREATININE RATIO 13; CALCIUM 9.3 MG/DL (8.5-10.1); CARBON DIOXIDE 17 MMOL/L (21-32); CHLORIDE 103 MMOL/L (98-107); CREATINE KINASE 206 U/L (29-168); CREATININE SERUM 1.19 MG/DL (0.60-1.30); GFR ESTIMATED 44; GLUCOSE 141 MG/DL (70-105); MAGNESIUM 2.1 MG/DL (1.8-2.4); POTASSIUM 5.8 MMOL/L (3.6-5.0); SODIUM 132 MMOL/L (135-145)
[2017-05-12 21:44] LABS: BAND NEUTROPHILS 1 %; BASOPHILS % (MANUAL) 0 %; EOSINOPHILS % (MANUAL) 1 %; LYMPHOCYTES % (MANUAL) 9 %; MONOCYTES % (MANUAL) 3 %; NEUTROPHILS % (MANUAL) 86 %; RBC MORPH NORMAL
[2017-05-12 21:47] LABS: CREATINE KINASE MB 5.5 NG/ML (<6.6)
[2017-05-12 22:12] LABS: ABG BASE EXCESS -4.7 MMOL/L (-2.5-2.5); ABG OXYGEN SATURATION 99 % (94-100); ABG PCO2 49 MMHG (35-45); ABG PO2 161 MMHG (79-93); ABG TCO2 23.1 MMOL/L (21.0-31.0)
[2017-05-12 22:14] LABS: ABG PH 7.26 (7.37-7.43); ALLENS TEST POSITIVE; INSPIRED O2 40%; PATIENT TEMP 96.2; VENTILATOR NO
[2017-05-12] MEDS ORDERED: LEVOFLOXACIN 750 MG/150 ML IV 150 ML IV ONE (22:30)
[2017-05-12] MEDS ORDERED: IOHEXOL 350 MG/ML 150 ML (OMNIPAQUE 350) VIAL IV ONE (22:30)
[2017-05-12] MEDS ORDERED: NS 100 ML (IVPB) BAG IV ONE (22:30)
[2017-05-12 22:44] VITALS: BP 122/69
[2017-05-12] MEDS ORDERED: BENZONATATE 100 MG (TESSALON) CAPSULE PO SCH (23:30)
[2017-05-13] VITALS (16 sets, daily range): BP systolic 99–146; BP diastolic 57–89
[2017-05-13] MEDS: methylPREDNISolone 125 MG (Solu-MEDROL) VIAL IVP SCH ×3 (04:20→16:38)
[2017-05-13] MEDS: FUROSEMIDE 40 MG/4 ML INJ (LASIX) IV SCH ×2 (04:20→10:21)
[2017-05-13 04:27] LABS: BASOPHILS % (AUTO) 0 % (0-10); EOSINOPHILS % (AUTO) 0 % (0-10); HEMATOCRIT 25 % (35-52); HEMOGLOBIN 8.1 G/DL (11.5-16.0); LYMPHOCYTES # (AUTO) 0.2 X 10^3 (1.0-4.0); LYMPHOCYTES % (AUTO) 7 % (12-44); MEAN CORPUSCULAR HEMOGLOBIN 29 PG (25-34); MEAN CORPUSCULAR HGB CONC 32 G/DL (32-36); MEAN CORPUSCULAR VOLUME 88 FL (80-99); MEAN PLATELET VOLUME 9.5 FL (7.4-10.4); MONOCYTES # (AUTO) 0.1 X 10^3 (0.0-1.0); MONOCYTES % (AUTO) 4 % (0-12); NEUTROPHILS # (AUTO) 2.2 X 10^3 (1.8-7.8); NEUTROPHILS % (AUTO) 90 % (42-75); PLATELET COUNT 254 10^3/uL (130-400); RED BLOOD COUNT 2.83 10^6/uL (4.35-5.85); RED CELL DISTRIBUTION WIDTH 14.1 % (10.0-14.5); WHITE BLOOD COUNT 2.4 10^3/uL (4.3-11.0)
[2017-05-13 04:50] LABS: ALANINE AMINOTRANSFERASE 30 U/L (0-55); ALBUMIN 3.8 GM/DL (3.2-4.5); ALKALINE PHOSPHATASE 80 U/L (40-136); BILIRUBIN,TOTAL 0.3 MG/DL (0.1-1.0); BUN/CREATININE RATIO 16; CALCIUM 9.4 MG/DL (8.5-10.1); CARBON DIOXIDE 22 MMOL/L (21-32); CHLORIDE 101 MMOL/L (98-107); CREATININE SERUM 1.14 MG/DL (0.60-1.30); GFR ESTIMATED 47; GLUCOSE 142 MG/DL (70-105); POTASSIUM 5.2 MMOL/L (3.6-5.0); SODIUM 133 MMOL/L (135-145); TOTAL PROTEIN 6.6 GM/DL (6.4-8.2)
--- NOTE | 2017-05-13 06:29 | Diagnostic Imaging Report ---
PROCEDURE: CT angiography of the chest with contrast. TECHNIQUE: Multiple contiguous axial images were obtained through the chest after uneventful bolus administration of intravenous contrast. Reconstructed CTA MIP acquisitions were also performed. INDICATION: Chest pain and shortness of breath. COMPARISON: Comparison is made with the prior examination dated 12/05/2016. FINDINGS: There are no filling defects seen within the pulmonary arteries to suggest pulmonary embolism. There is moderate atherosclerotic plaque at the aorta which is nonaneurysmal. There is a chronic short segment dissection or ulcerated plaque in the descending thoracic aorta which is unchanged. There are bilateral pleural effusions with some dependent atelectasis in both lung bases. There is no pneumothorax. There is no pathologically enlarged adenopathy of the chest. There are coronary artery calcifications. There are degenerative changes in the spine. The visualized intraabdominal structures are unremarkable. IMPRESSION: No acute abnormality in the chest. Specifically, there is no evidence of pulmonary embolism or aortic aneurysm. 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 Bilateral pleural effusions and dependent atelectasis in both lung bases. Dictated by: Dictated on workstation # [id number]
--- NOTE | 2017-05-13 08:00 | ED Respiratory ---
General Chief Complaint: Respiratory Problems Stated Complaint: ACUTE RESPIRATORY FAILURE;CHF;COPD EXACERBATION Nursing Triage Note: Pt brought in by [facility] with complaint of SOA x6 days. Pt states that it became worse today. States she has a hx of copd and wears 3L o2 at home. Source: patient, EMS History of Present Illness Date Seen by Provider: May 12, 2017 Time Seen by Provider: 20:50 Initial Comments PT ARRIVES VIA EMS FROM HOME C/O SHORTNESS OF BREATH EMS GAVE ALBUTEROL NEB TREATMENTS X 2 AND SOLUMEDROL IV PRIOR TO ARRIVAL PT WITH HISTORY OF COPD AND IS O2 DEPENDENT AT 3L/NC CONTINUOUSLY PT STATES SHE HAS HAD INCREASED SHORTNESS OF BREATH FOR THE LAST WEEK, AND IS MUCH WORSE TODAY NON-PRODUCTIVE COUGH NO CHEST PAIN NO KNOWN FEVER, BUT IS DIAPHORETIC ON ARRIVAL HAS HAD BILATERAL LEG SWELLING X 1 WEEK. NO CALF PAIN. NO HISTORY OF LEG SWELLING-HOWEVER, PER OLD RECORDS FROM 12/2016, PT HAD DX OF CHF AND HAD LEG EDEMA AT THAT TIME PT STATES SHE SAW DR. PEARSON TODAY FOR THIS PROBLEM AND WAS PRESCRIBED LEVAQUIN AND PREDNISONE--STATES SYMPTOMS HAVE GOTTEN MUCH WORSE SINCE THEN. HAS BEEN IN ALF IN THE PAST PCP: DR. PEARSON Allergies and Home Medications Allergies Coded Allergies: Penicillins (Verified Allergy, Unknown, PT HAS RECEIVED ANCEF WITHOUT ISSUE, 05/30/14) meperidine (Verified Allergy, Unknown, 05/30/14) Home Medications Acetaminophen 500 Mg Tablet, 1,000 MG PO Q6H PRN for PAIN-MILD, (Reported) TAKES 2 (500MG) TABLETS Albuterol/Ipratropium 4 Gm Aero, 1 PUFF IH QID PRN for SHORTNESS OF BREATH, ( Reported) Amitriptyline HCl 25 Mg Tablet, 25 MG PO HS, (Reported) Atorvastatin Calcium 10 Mg Tablet, 10 MG PO HS, (Reported) Buspirone HCl 5 Mg Tablet, 2.5 MG PO TID, (Reported) TAKES 1/2 (5MG) TABLET Divalproex Sodium 250 Mg Tablet.dr, 250 MG PO HS, (Reported) Docusate Sodium 100 Mg Capsule, 100 MG PO BID, (Reported) Fluticasone Propionate 16 Gm [place].susp, 1 SPRAY NS BID, (Reported) Furosemide 40 Mg Tablet, 40 MG PO DAILY, (Reported) Furosemide 40 Mg Tablet, 40 MG PO DAILY PRN for SWELLING, (Reported) TAKES AN EXTRA DOSE OF 40MG NEEDED FOR SWELLING Ipratropium/Albuterol Sulfate 3 Ml Ampul.neb, 3 ML IH Q4H PRN for SHORTNESS OF BREATH, (Reported) Latanoprost 2.5 Ml Drops, 1 DROP OU HS, (Reported) Levofloxacin 500 Mg Tablet, 500 MG PO DAILY Prescribed by: KELSIE PEARSON on 12/31/162033 Losartan Potassium 50 Mg Tablet, 50 MG PO DAILY, (Reported) Magnesium Hydroxide 400 Mg/5 Ml Oral.susp, 30 ML PO DAILY PRN for CONSTIPATION- 7TH LINE, (Reported) Nebivolol HCl 10 Mg Tab, 10 MG PO DAILY, (Reported) Ondansetron HCl 4 Mg Tablet, 4 MG PO Q8H PRN for NAUSEA/VOMITING-1ST LINE, ( Reported) Pantoprazole Sodium 40 Mg Tablet.dr, 40 MG PO BID, (Reported) Polyethylene Glycol 3350 255 Gm Powder, 17 GM PO DAILY PRN for CONSTIPATION-2ND LINE, (Reported) Potassium Chloride 10 Meq Tablet.er, 10 MEQ PO DAILY, (Reported) Prednisone 20 Mg Tab, 20 MG PO BID Prescribed by: KELSIE PEARSON on 12/31/162033 Sertraline HCl 100 Mg Tablet, 100 MG PO BID, (Reported) Constitutional: see HPI, diaphoresis, malaise, weakness EENTM: no symptoms reported Respiratory: see HPI, cough, dyspnea on exertion, short of breath, wheezing Cardiovascular: No chest pain, edema, No palpitations, No syncope, No vascular heart diseas Gastrointestinal: no symptoms reported Genitourinary: no symptoms reported Musculoskeletal: see HPI Skin: no symptoms reported Psychiatric/Neurological: No Symptoms Reported Hematologic/Lymphatic: No Symptoms Reported Immunological/Allergic: no symptoms reported Past Ghgjcsv-Hznrvm-Pvmphx Hx Patient Social History Alcohol Use: Denies Use Recreational Drug Use: No Smoking Status: Current Everyday Smoker (1 1/2 PPD, NOW BUT > 2 PPD IN RECENT PAST) Type Used: Cigarettes (1 1/2 PPD) Recent Foreign Travel: No Contact w/Someone Who Travel: No Recent Infectious Disease Expo: No Recent Hopitalizations: No Immunizations Up To Date Tetanus Booster (TDap): Unknown Date of Pneumonia Vaccine: Dec 15, 2013 Date of Influenza Vaccine: Dec 12, 2016 Seasonal Allergies Seasonal Allergies: No Surgeries History of Surgeries: Yes (RIGHT CAROTID ENDARTERECTOMY, BREAST BIOPSIES, HERNIA REPAIR x2, HEMMORHOID SURGERIES; STENTS IN LEG, PER PT; RIGHT HIP FX/ ORIF 08/2015; LEFT HIP FX/ORIF 05/2016; COLONSCOPIES/POLYPECTOMIES; EGD'S WITH DILATION OF ESOPHAGEAL STRICTURE) Surgeries: Abdominal, Breast, Gallbladder, Hysterectomy, Orthopedic, Rectal, Tonsillectomy, Vascular Surgery Respiratory History of Respiratory Disorde: Yes (COPD--O2 AT 3L/NC CONTINUOUSLY) Respiratory Disorders: COPD Currently Using CPAP: No Currently Using BIPAP: No Cardiovascular History of Cardiac Disorders: Yes (CAROTID DISEASE; PERIPHERAL VASCULAR DISEASE --STENTS IN LEG, PER PT; CHF) Cardiac Disorders: Coronary Artery Disease, High Cholesterol, Hypertension, Peripheral Vascular Neurological History of Neurological Disord: Yes (LEFT SIDE WEAKNESS--LAST TIA 01/2016) Neurological Disorders: Seizure Disorder, Stroke, TIA 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 System Hx 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 Disorders: No Sexually Transmitted Disease: No HIV/AIDS: No Female 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 Disorders: 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, 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 Genitourinary History of Genitourinary Disor: No Gastrointestinal History of Gastrointestinal Di: Yes (ESPHAGEAL STRICTURE) Gastrointestinal Disorders: Abdominal Hernia, Gastroesophageal Reflux, Chronic Constipation, Hemorrhoids, Polyps, Hiatal Hernia Musculoskeletal History of Musculoskeletal Dis: Yes (CHRONIC GENERALIZED PAIN , FX RIGHT HIP ; LEFT HIP FX 05/2016) Musculoskeletal Disorders: Arthritis, Fibromyalgia, Chronic Back Pain, Fractures Endocrine History of Endocrine Disorders: No HEENT History of HEENT Disorders: Yes HEENT Disorders: Glaucoma Hearing Impairment: Denies Cancer History of Cancer: Yes Cancer: Breast Did You Recieve Any Treatments: Yes Type of Tx Receive: Surgical Intervention Psychosocial History of Psychiatric Problem: Yes ("SEVERE ANXIETY" PER PT) Behavioral Health Disorders: Anxiety Integumentary History of Skin or Integumenta: No Blood Transfusions History of Blood Disorders: Yes (ANEMIA) Adverse Reaction to a Blood Tr: No Family Medical History Significant Family History: Cancer, Diabetes Family Medial History: Alcoholism 19 MOTHER, Onset:20's - 25 Aphasia 19 MOTHER, Onset:40's - 50 Asthma 19 FATHER, Onset:Unknown Congenital disease Son, Onset:Pre- Diabetes mellitus G8 SISTER, Onset:60 years & older FH: ovarian cancer G8 SISTER, Onset:Unknown FHx: stomach cancer 19 MOTHER, Onset:60 years & older Glaucoma Grandaughter, Onset:Unknown Hypertension 19 MOTHER, Onset:Unknown Infertility G8 SISTER, Onset:Pre- Tuberculosis G8 SISTER, Onset:30's - 40 No Family History of: AIDS Abdominal aortic aneurysm Caldwell's disease Alzheimer's disease Cancer of mouth Cardiovascular disease Cataracts Colon cancer Completed stroke Congenital heart disease Coronary thrombosis Cystic fibrosis Deafness or hearing loss Dementia Drug abuse Dysphasia Fibrocystic disease of breast Gastroenteritis Gout Headache disorder Hypercholesterolemia Kidney disease Myocardial infarction Neoplasm Not obtainable due to adoption Osteoporosis Parkinson's disease Prostate cancer Psychosocial problem Respiratory disorder Seizure disorder Severe allergy Thyroid disease Visual disorder Physical Exam Vital Signs Vital Signs - First Documented 05/12/17 20:45 Temp 96.2 Pulse 104 Resp 30 B/P (MAP) 148/82 (104) Pulse Ox 94 O2 Delivery Nasal Cannula O2 Flow Rate 3.00 Capillary Refill : Less Than 3 Seconds General Appearance: WD/WN, moderate distress (VERY DYSPNEIC, WITH AUDIBLE WHEEZING FROM OUTSIDE OF ROOM. ABLE TO TALK IN 2-5 WORD SENTENCES, REEKS OF CIGARETTES) HEENT: PERRL/EOMI, other (EDENTULOUS) Respiratory: respiratory distress, decreased breath sounds, accessory muscle use, wheezing Cardiovascular: tachycardia, systolic murmur (4/6) Gastrointestinal: non tender, soft, hernia (LARGE VENTRAL HERNIA) Extremities: pedal edema (2+ BILATERALLY) Neurologic/Psychiatric: efficiency clerk II-XII nml as tested, alert, oriented x 3, other ( MILD LEFT SIDE WEAKNESS--CHRONIC / POST CVA) Skin: diaphoresis (WARM) Focused Exam Evaluation Lactate Level Laboratory Tests 05/12/17 21:12: Lactic Acid Level 0.90 Lactic Acid Level Laboratory Tests Test 05/12/17 21:12 Lactic Acid Level 0.90 MMOL/L (0.50-2.00) Progress/Results/Core Measures Suspected Sepsis Recent Fever Within 48 Hours: No Infection Criteria Present: None New/Unexplained Altered Menta: No Sepsis Screen: No Definite Risk Sepsis Diagnosis: SIRS Temperature:98.1 Pulse: 99 Respiratory Rate: 13 Laboratory Tests 05/12/17 21:12: White Blood Count 5.3 Blood Pressure 136 /74 Mean: 94 Laboratory Tests 05/12/17 21:12: Lactic Acid Level 0.90 Laboratory Tests 05/12/17 21:12: Creatinine 1.19, INR Comment 1.1, Platelet Count 261, Total Bilirubin 0.3 Results/Orders Lab Results Laboratory Tests Test 05/12/17 21:12 05/12/17 21:15 05/12/17 22:00 Range/Units White Blood Count 5.3 4.3-11.0 10^3/uL Red Blood Count 3.02 L 4.35-5.85 10^6/uL Hemoglobin 8.5 L 11.5-16.0 G/DL Hematocrit 27 L 35-52 % Mean Corpuscular Volume 88 80-99 FL Mean Corpuscular Hemoglobin 28 25-34 PG Mean Corpuscular Hemoglobin Concent 32 32-36 G/DL Red Cell Distribution Width 14.4 10.0-14.5 % Platelet Count 261 130-400 10^3/uL Mean Platelet Volume 9.6 7.4-10.4 FL Neutrophils (%) (Auto) 91 H 42-75 % Lymphocytes (%) (Auto) 6 L 12-44 % Monocytes (%) (Auto) 2 0-12 % Eosinophils (%) (Auto) 0 0-10 % Basophils (%) (Auto) 0 0-10 % Neutrophils # (Auto) 4.9 1.8-7.8 X 10^3 Lymphocytes # (Auto) 0.3 L 1.0-4.0 X 10^3 Monocytes # (Auto) 0.1 0.0-1.0 X 10^3 Eosinophils # (Auto) 0.0 0.0-0.3 10^3/uL Basophils # (Auto) 0.0 0.0-0.1 10^3/uL Neutrophils % (Manual) 86 % Lymphocytes % (Manual) 9 % Monocytes % (Manual) 3 % Eosinophils % (Manual) 1 % Basophils % (Manual) 0 % Band Neutrophils 1 % Blood Morphology Comment NORMAL Prothrombin Time 14.2 12.2-14.7 SEC INR Comment 1.1 0.8-1.4 Activated Partial Thromboplast Time 31 24-35 SEC Urine Color YELLOW Urine Clarity CLEAR Urine pH 5 5-9 Urine Specific [place] 1.015 L 1.016-1.022 Urine Protein 2+ H NEGATIVE Urine Glucose (UA) NEGATIVE NEGATIVE Urine Ketones NEGATIVE NEGATIVE Urine Nitrite NEGATIVE NEGATIVE Urine Bilirubin NEGATIVE NEGATIVE Urine Urobilinogen NORMAL NORMAL MG/DL Urine Leukocyte Esterase 1+ H NEGATIVE Urine RBC (Auto) NEGATIVE NEGATIVE Urine RBC NONE /HPF Urine WBC 2-5 /HPF Urine Squamous Epithelial Cells 5-10 /HPF Urine Crystals NONE /LPF Urine Bacteria NONE /HPF Urine Casts PRESENT /LPF Urine Hyaline Casts >50 H /LPF Urine Mucus NONE /LPF Urine Culture Indicated NO Sodium Level 132 L 135-145 MMOL/L Potassium Level 5.8 H 3.6-5.0 MMOL/L Chloride Level 103 98-107 MMOL/L Carbon Dioxide Level 17 L 21-32 MMOL/L Anion Gap 12 5-14 MMOL/L Blood Urea Nitrogen 16 7-18 MG/DL Creatinine 1.19 0.60-1.30 MG/DL Estimat Glomerular Filtration Rate 44 BUN/Creatinine Ratio 13 Glucose Level 141 H 70-105 MG/DL Lactic Acid Level 0.90 0.50-2.00 MMOL/L Calcium Level 9.3 8.5-10.1 MG/DL Magnesium Level 2.1 1.8-2.4 MG/DL Total Bilirubin 0.3 0.1-1.0 MG/DL Aspartate Amino Transf (AST/SGOT) 34 5-34 U/L Alanine Aminotransferase (ALT/SGPT) 31 0-55 U/L Alkaline Phosphatase 83 40-136 U/L Total Creatine Kinase 206 H 29-168 U/L Creatine Kinase MB 5.5 <6.6 NG/ML Troponin I < 0.30 <0.30 NG/ML B-Type Natriuretic Peptide 1390.4 H <100.0 PG/ML Total Protein 7.0 6.4-8.2 GM/DL Albumin 4.0 3.2-4.5 GM/DL Blood Gas Puncture Site RIGHT RADIAL LEFT RADIAL Blood Gas Patient Temperature 96.2 96.2 Arterial Blood pH 7.27 *L 7.26 *L 7.37-7.43 Arterial Blood Partial Pressure CO2 45 49 H 35-45 MMHG Arterial Blood Partial Pressure O2 131 H 161 H 79-93 MMHG Arterial Blood HCO3 21 L 22 L 23-27 MMOL/L Arterial Blood Total CO2 21.9 23.1 21.0-31.0 MMOL/L Arterial Blood Oxygen Saturation 99 99 94-100 % Arterial Blood Base Excess -5.6 L -4.7 L -2.5-2.5 MMOL/L Rao Test POSITIVE POSITIVE Blood Gas Ventilator Setting NO NO Blood Gas Inspired Oxygen 40% BIPAP 40% Micro Results Microbiology 05/12/17 Influenza Types A,B Antigen (LISSY) - Final, Complete My Orders Orders - YOLANDA DOYLE DO Albuterol/Ipra Inhalation Soln (Duoneb I (05/12/17 20:54) Furosemide Injection (Lasix Injection) (05/12/17 20:55) Methylprednisolone Sod Succ (Solu-Medrol (05/12/17 20:55) Albuterol/Ipra Inhalation Soln (Duoneb I (05/12/17 21:01) Saline Lock/Iv-Start (05/12/17 21:03) Ekg Tracing (05/12/17 21:03) Catheter(Urinary) Insert & Ass 03,15 (05/12/17 21:03) O2 (05/12/17 21:03) Monitor-Rhythm Ecg Trace Only (05/12/17 21:03) Arterial Blood Gas (05/12/17 21:03) BNP (05/12/17 21:03) Cbc With Automated Diff (05/12/17 21:03) Comprehensive Metabolic Panel (05/12/17 21:03) Creatine Kinase (05/12/17 21:03) Creatine Kinase Mb (05/12/17 21:03) Lactic Acid Analyzer (05/12/17 21:03) Magnesium (05/12/17 21:03) Protime With Inr (05/12/17 21:03) Partial Thromboplastin Time (05/12/17 21:03) Troponin I (05/12/17 21:03) Ua Culture If Indicated (05/12/17 21:03) Blood Culture (05/12/17 21:03) Influenza A And B Antigens (05/12/17 21:03) Chest 1 View, Ap/Pa Only (05/12/17 21:03) Albuterol/Ipra Inhalation Soln (Duoneb I (05/12/17 21:15) Dexamethasone Injection (Decadron Inject (05/12/17 21:15) Rt Request For Service (05/12/17 21:03) Furosemide Injection (Lasix Injection) (05/12/17 21:03) Methylprednisolone Sod Succ (Solu-Medrol (05/12/17 21:03) Svn Sm Volume Nebulizer Rt-Rfs (05/12/17 21:03) Manual Differential (2/26/18 21:12) Arterial Blood Gas (05/12/17 22:05) Medications Given in ED Current Medications Medications Dose Ordered Sig/Ankita Route Start Time Stop Time Status Last Admin Dose Admin Albuterol/ Ipratropium 3 ml ONCE ONCE INH 05/12/17 21:15 05/12/17 21:16 DC 05/12/17 21:21 3 ML Dexamethasone Sodium Phosphate 20 mg ONCE ONCE IH 05/12/17 21:15 05/12/17 21:16 DC 05/12/17 21:20 20 MG Vital Signs/I&O Vital Sign - Last 12Hours 05/12/17 05/12/17 05/12/17 20:45 20:45 21:26 Temp 96.2 Pulse 104 95 Resp 30 19 B/P (MAP) 148/82 (104) Pulse Ox 94 94 99 O2 Delivery Nasal Cannula Nasal Cannula O2 Flow Rate 3.00 3.00 40.00 Intake and Output 05/13/17 00:00 Intake Total 300 ml Balance 300 ml Capillary Refill : Less Than 3 Seconds Blood Pressure Mean: 94 Progress Note : Progress Note PT IMMEDIATELY PLACED ON BIPAP ON ARRIVAL, WITH RAPID IMPROVEMENT IN DYSPNEA GIVEN HOUR LONG NEB TREATMENT, ALONG WITH SOLU-MEDROL, AND LASIX, WITH SIGNIFICANT DECREASE IN WHEEZING AND INCREASED AERATION. NO DETERIORATION IN PT'S CONDITION DURING ER STAY ECG Initial ECG Impression Date: May 12, 2017 Initial ECG Impression Time: 22:02 Initial ECG Rate: 100 Initial ECG Impression: Nonspecific Changes (SMALL INFERIOR Q WAVES) Initial ECG Comparisson: Changed (VERY SLIGHTLY--FROM 05/24/16--NOW WITH TINY INFERIOR Q WAVES) Diagnostic Imaging Comments CXR--CARDIOMEGALY WITH BILATERAL INTERSTITIAL OPACITIES--LIKELY PULMONARY EDEMA BUT CANNOT RULE OUT INFECTIOUS ETIOLOGY--PER RADIOLOGIST REPORT @ 8802 CT CHEST ANGIOGRAM--NO P.E. SMALL BILATERAL PLEURAL EFFUSION, WITH ASSOCIATED COMPRESSIVE ATELECTASIS, UNCHANGED/CHRONIC SHORT SEGMENT DISSECTION OR ULCERATED PLAQUE IN DESCENDING THORACIC AORTA--PER [facility] VIA FAX @ [phone] Reviewed: Reviewed by Me Critical Care Note Critical Care Total Time (minutes) 30 Departure Communication (Admissions) Progress Notes 1149--SPOKE WITH DR. DE LA TORRE, COVERING FOR DR. PEARSON. ACCEPTS PT FOR ADMIT. ADVISES CT CHEST ANGIOGRAM PRIOR TO ADMIT. Impression Impression: Primary Impression: Acute and chronic respiratory failure Additional Impressions: COPD exacerbation CHF (congestive heart failure) POSSIBLE PNEUMONIA Heavy smoker MILD HYPERKALEMIA Chronic anemia Disposition: ADMITTED INPATIENT Condition: Improved Admissions Decision to Admit Reason: Admit from ER (General) Decision to Admit/Date: May 12, 2017 Time/Decision to Admit Time: 22:15 Departure-Patient Inst. Referrals: KELSIE PEARSON DO (PCP) Primary Care Physician YOLANDA DOYLE DO May 13, 2017 08:00
--- NOTE | 2017-05-13 08:02 | Diagnostic Imaging Report ---
INDICATION: Congestive heart failure. COMPARISON: Comparison is made with the prior examination dated 05/12/2017. FINDINGS: Heart size is normal. There is a right basilar infiltrate. There is no pleural effusion or pneumothorax. Mediastinum is unremarkable. IMPRESSION: Right base infiltrate. Dictated by: Dictated on workstation # [id number]
--- NOTE | 2017-05-13 08:26 | History & Physicial ---
History of Present Illness History of Present Illness Reason for visit/HPI PT REPORTS THAT SHE PRESENTED TO THE HOSPITAL AFTER HAVING WORSENING AND SEVERE DYSPNEA. SHE REPORTS THAT SHE HAS BEEN HAVING WORSENING BREATHING OVER A FEW DAYS PRIOR TO ADMISSION. SHE REPORTS THAT SHE HAD BEEN USING HER OXYGEN PER USUAL, BUT HER BREATHING HAS NOT BEEN RESPONDING TO HER TREATMENTS OR THE OXYGEN. SHE WAS IN ACUTE RESPIRATORY DISTRESS ON ADMISSION. Date of Admission May 12, 2017 at 22:10 Date Seen by Provider: May 13, 2017 Time Seen by Provider: 08:20 Attending Physician Betsy Coronado DO Admitting Physician CAROLINE DE LA TORRE MD Consult Allergies and Home Medications Allergies Coded Allergies: Penicillins (Verified Allergy, Unknown, PT HAS RECEIVED ANCEF WITHOUT ISSUE, 05/30/14) meperidine (Verified Allergy, Unknown, 05/30/14) Home Medications Acetaminophen 500 Mg Tablet, 1,000 MG PO Q6H PRN for PAIN-MILD, (Reported) TAKES 2 (500MG) TABLETS Albuterol/Ipratropium 4 Gm Aero, 1 PUFF IH QID PRN for SHORTNESS OF BREATH, ( Reported) Amitriptyline HCl 25 Mg Tablet, 25 MG PO HS, (Reported) Atorvastatin Calcium 10 Mg Tablet, 10 MG PO HS, (Reported) Buspirone HCl 5 Mg Tablet, 2.5 MG PO TID, (Reported) TAKES 1/2 (5MG) TABLET Divalproex Sodium 250 Mg Tablet.dr, 250 MG PO HS, (Reported) Docusate Sodium 100 Mg Capsule, 100 MG PO BID, (Reported) Fluticasone Propionate 16 Gm S[place].susp, 1 SPRAY NS BID, (Reported) Furosemide 40 Mg Tablet, 40 MG PO DAILY, (Reported) Furosemide 40 Mg Tablet, 40 MG PO DAILY PRN for SWELLING, (Reported) TAKES AN EXTRA DOSE OF 40MG NEEDED FOR SWELLING Ipratropium/Albuterol Sulfate 3 Ml Ampul.neb, 3 ML IH Q4H PRN for SHORTNESS OF BREATH, (Reported) Latanoprost 2.5 Ml Drops, 1 DROP OU HS, (Reported) Levofloxacin 500 Mg Tablet, 500 MG PO DAILY, (Reported) Magnesium Hydroxide 400 Mg/5 Ml Oral.susp, 30 ML PO DAILY PRN for CONSTIPATION- 7TH LINE, (Reported) Nebivolol HCl 10 Mg Tab, 10 MG PO DAILY, (Reported) Ondansetron HCl 4 Mg Tablet, 4 MG PO Q8H PRN for NAUSEA/VOMITING-1ST LINE, ( Reported) Pantoprazole Sodium 40 Mg Tablet.dr, 40 MG PO BID, (Reported) Polyethylene Glycol 3350 255 Gm Powder, 17 GM PO DAILY PRN for CONSTIPATION-2ND LINE, (Reported) Potassium Chloride 10 Meq Tablet.er, 10 MEQ PO DAILY, (Reported) Prednisone 20 Mg Tab, 20 MG PO TID, (Reported) Prednisone 20 Mg Tab, 20 MG PO BID, (Reported) Sertraline HCl 100 Mg Tablet, 100 MG PO BID, (Reported) Past Hvzgisp-Dlofsl-Pkycby Hx Patient Social History Employed/Student: retired Alcohol Use: Denies Use Recreational Drug Use: No Smoking Status: Current Everyday Smoker (1 1/2 PPD, NOW BUT > 2 PPD IN RECENT PAST) Type Used: Cigarettes (1 1/2 PPD) 2nd Hand Smoke Exposure: Yes Physical Abuse Screen: No Sexual Abuse: No Recent Foreign Travel: No Contact w/other who traveled: No Recent Hopitalizations: No Recent Infectious Disease Expo: No Immunizations Up To Date Tetanus Booster (TDap): Unknown Date of Pneumonia Vaccine: Dec 15, 2013 Date of Influenza Vaccine: Dec 12, 2016 Seasonal Allergies Seasonal Allergies: No Surgeries Yes (RIGHT CAROTID ENDARTERECTOMY, BREAST BIOPSIES,HERNIA REPAIR x2, HEMMORHOID SURGERIES; STENTS IN LEG, PER PT; RIGHT HIP FX/ORIF 08/2015; LEFT HIP FX/ORIF ; COLONSCOPIES/POLYPECTOMIES; EGD'S WITH DILATION OF ESOPHAGEAL STRICTURE) Abdominal, Breast, Gallbladder, Hysterectomy, Orthopedic, Rectal, Tonsillectomy , Vascular Surgery Respiratory Yes (COPD--O2 AT 3L/NC CONTINUOUSLY) COPD, Sleep Apnea Currently Using CPAP: No Currently Using BIPAP: No Cardiovascular Yes (CAROTID DISEASE; PERIPHERAL VASCULAR DISEASE--STENTS IN LEG, PER PT; CHF) Coronary Artery Disease, High Cholesterol, Hypertension, Peripheral Vascular Neurological Yes (LEFT SIDE WEAKNESS--LAST TIA 01/2016) Seizure Disorder, Stroke, TIA 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 System : No Hx 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 Disorders: No Sexually Transmitted Disease: No HIV/AIDS: No Female 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 Disorders: Denies 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 History: Hysterectomy, Menopausal Genitourinary No Gastrointestinal Yes (ESPHAGEAL STRICTURE) Abdominal Hernia, Gastroesophageal Reflux, Chronic Constipation, Hemorrhoids, Polyps, Hiatal Hernia Musculoskeletal Yes (CHRONIC GENERALIZED PAIN , FX RIGHT HIP 09/09/15; LEFT HIP FX 05/2016) Arthritis, Fibromyalgia, Chronic Back Pain, Fractures Endocrine History of Endocrine Disorders: No HEENT History of HEENT Disorders: Yes HEENT Disorders: Glaucoma Hearing Impairment: Denies Cancer Yes Breast Did You Recieve Any Treatments: Yes Type of Treatment: Surgical Intervention Psychosocial History of Psychiatric Problem: Yes ("SEVERE ANXIETY" PER PT) Behavioral Health Disorders: Anxiety Integumentary History of Skin or Integumenta: No Blood Transfusions History of Blood Disorders: Yes (ANEMIA) Adverse Reaction to a Blood Tr: No Reviewed Nursing Assessment Reviewed/Agree w Nursing PMH: Yes Family Medical History Significant Family History: Cancer, Diabetes Family Hx: Alcoholism 19 MOTHER, Onset:20's - 25 Aphasia 19 MOTHER, Onset:40's - 50 Asthma 19 FATHER, Onset:Unknown Congenital disease Son, Onset:Pre- Diabetes mellitus G8 SISTER, Onset:60 years & older FH: ovarian cancer G8 SISTER, Onset:Unknown FHx: stomach cancer 19 MOTHER, Onset:60 years & older Glaucoma Grandaughter, Onset:Unknown Hypertension 19 MOTHER, Onset:Unknown Infertility G8 SISTER, Onset:Pre- Tuberculosis G8 SISTER, Onset:30's - 40 No Family History of: AIDS Abdominal aortic aneurysm [place]'s disease Alzheimer's disease Cancer of mouth Cardiovascular disease Cataracts Colon cancer Completed stroke Congenital heart disease Coronary thrombosis Cystic fibrosis Deafness or hearing loss Dementia Drug abuse Dysphasia Fibrocystic disease of breast Gastroenteritis Gout Headache disorder Hypercholesterolemia Kidney disease Myocardial infarction Neoplasm Not obtainable due to adoption Osteoporosis Parkinson's disease Prostate cancer Psychosocial problem Respiratory disorder Seizure disorder Severe allergy Thyroid disease Visual disorder Constitutional: No chills, No diaphoresis, No dizziness, No fever, malaise, weakness EENTM: other (DRY MOUTH), No hoarseness, No throat pain Respiratory: cough, dyspnea on exertion, orthopnea, short of breath Cardiovascular: No chest pain, No palpitations Gastrointestinal: No abdominal pain, No diarrhea, No nausea, No vomiting Musculoskeletal: no symptoms reported Skin: no symptoms reported Psychiatric/Neurological: Anxiety, Denies Depressed Physical Exam Vital Signs Vital Signs - First Documented 05/12/17 05/13/17 20:45 05:05 Temp 96.2 Pulse 104 Resp 30 B/P (MAP) 148/82 (104) Pulse Ox 94 O2 Delivery Nasal Cannula O2 Flow Rate 3.00 FiO2 30 Capillary Refill : Less Than 3 Seconds General Appearance: WD/WN, Mild Distress (PT ON BIPAP) Eyes: Bilateral Eye Normal Inspection, Bilateral Eye PERRL, Bilateral Eye EOMI HEENT: PERRL/EOMI, Pharynx Normal Neck: Full Range of Motion, Supple Respiratory: Chest Non Tender, Lungs Clear, Normal Breath Sounds, No Accessory Muscle Use, No Respiratory Distress Cardiovascular: Regular Rate, Rhythm Gastrointestinal: Normal Bowel Sounds, Soft Rectal: Deferred Extremity: Normal Capillary Refill, No Calf Tenderness, No Pedal Edema Neurologic/Psychiatric: Alert, Oriented x3, No Motor/Sensory Deficits, Normal Mood/Affect Skin: Warm/Dry Lymphatic: No Adenopathy Assessment/Plan Assessment and Plan COPD EXACERBATION PNEUMONIA RESPIRATORY DISTRESS INSOMNIA HYPERLIPIDEMIA GERD COPD EXACERBATION - ON STEROIDS, ANTIBIOTICS, BREATHING TREATMENTS, BIPAP, MONITOR SYMPTOMS. PNEUMONIA - ON LEVAQUIN, CONTINUE TREATMENT. RESPIRATORY DISTRESS - ON BIPAP INSOMNIA - RESUME AMITRIPTYLINE HYPERLIPIDEMIA - HOLD STATIN AT THIS TIME. GERD - RESUME PPI. DVT PROPHYLAXIS WITH LOVENOX AND SCD'S Problems: Admission Diagnosis COPD EXACERBATION PNEUMONIA RESPIRATORY DISTRESS INSOMNIA HYPERLIPIDEMIA GERD Admission Status: Inpatient Order (span 2 midnights) Reason for Inpatient Admission: PT HAS AN ACUTE EXACERBATION OF HER COPD - SHE HAS RESPIRATORY DISTRESS AND CANNOT REASONABLY BE DISCHARGED FROM THE HOSPITAL BEFORE 2-3 MIDNIGHTS. Clinical Quality Measures DVT/VTE Risk/Contraindication: Risk Factor Score Per Nursin RFS Level Per Nursing on Admit: 4+=Very High CAROLINE DE LA TORRE MD May 13, 2017 08:26
[2017-05-13] MEDS ORDERED: SALIVA STIMULANT MOUTH SPRAY (BIOTENE) 1.5 OZ MM PRN (09:30)
[2017-05-13] MEDS: RT-ALBUTEROL/IPRATROPIUM 3 ML (DUONEB) VIAL INH SCH ×4 (10:07→22:30)
[2017-05-13] MEDS ORDERED: LEVO500T80 PO (10:08)
[2017-05-13] MEDS ORDERED: PRD20T PO ×4 (10:10→10:11)
[2017-05-13] MEDS: NICOTINE 21 MG (NICODERM) PATCH TD SCH (10:21)
[2017-05-13] MEDS ORDERED: RT-ALBUTEROL/IPRATROPIUM 3 ML (DUONEB) VIAL INH PRN (12:00)
[2017-05-13] MEDS: SUCRALFATE 1 GM (CARAFATE) TAB PO SCH ×2 (16:38→21:04)
[2017-05-13] MEDS: ALPRAZolam 0.25 MG (XANAX) TAB PO PRN ×2 (16:38→22:54)
[2017-05-13] MEDS: SENNA W/DOCUSATE (SENOKOT S) TABLET PO SCH (21:04)
[2017-05-13] MEDS: PANTOPRAZOLE 40 MG/10 ML (PROTONIX) VIAL IV SCH (21:04)
[2017-05-13] MEDS: ENOXAPARIN 40 MG/0.4 ML (LOVENOX) SYR SC SCH (21:08)
[2017-05-13] MEDS: BENZONATATE 100 MG (TESSALON) CAPSULE PO PRN (22:54)
[2017-05-13] MEDS ORDERED: LEVOFLOXACIN 750 MG/150 ML IV 150 ML IV SCH (23:00)
[2017-05-14] VITALS (9 sets, daily range): BP systolic 97–127; BP diastolic 55–74
[2017-05-14] MEDS: RT-ALBUTEROL/IPRATROPIUM 3 ML (DUONEB) VIAL INH SCH ×6 (02:37→21:42)
[2017-05-14] MEDS: SUCRALFATE 1 GM (CARAFATE) TAB PO SCH ×4 (05:30→20:42)
[2017-05-14 05:53] LABS: MEAN PLATELET VOLUME 9.7 FL (7.4-10.4); RED BLOOD COUNT 2.85 10^6/uL (4.35-5.85); RED CELL DISTRIBUTION WIDTH 14.4 % (10.0-14.5); WHITE BLOOD COUNT 6.1 10^3/uL (4.3-11.0)
[2017-05-14 06:14] LABS: ALBUMIN 3.7 GM/DL (3.2-4.5); BILIRUBIN,TOTAL 0.2 MG/DL (0.1-1.0); CREATININE SERUM 1.31 MG/DL (0.60-1.30); POTASSIUM 3.9 MMOL/L (3.6-5.0); TOTAL PROTEIN 6.4 GM/DL (6.4-8.2)
[2017-05-14] MEDS: BENZONATATE 100 MG (TESSALON) CAPSULE PO PRN ×2 (08:49→20:42)
[2017-05-14] MEDS: SENNA W/DOCUSATE (SENOKOT S) TABLET PO SCH ×2 (08:49→20:45)
[2017-05-14] MEDS: NICOTINE 21 MG (NICODERM) PATCH TD SCH (08:49)
[2017-05-14] MEDS: PANTOPRAZOLE 40 MG/10 ML (PROTONIX) VIAL IV SCH (08:49)
--- NOTE | 2017-05-14 09:19 | Progress Note (SOAP) ---
Subjective Date Seen by Provider: May 14, 2017 Time Seen by Provider: 08:50 Subjective/Events-last exam PT REPORTS THAT SHE IS FEELING BETTER TODAY - SHE IS HAPPY TO BE OFF OF BIPAP. SHE REPORTS THAT HER STOMACH ALWAYS HURTS DUE TO HER ABDOMINAL HERNIA. SHE REPORTS THAT SHE HAS BEEN ANXIOUS AND IS WONDERING ABOUT INCREASING THE ANXIETY MEDICATION. Review of Systems General: Fatigue HEENT: No Head Aches, No Visual Changes Pulmonary: Dyspnea, Cough Cardiovascular: No: Chest Pain, Palpitations Gastrointestinal: Abdominal Pain, No: Nausea Neurological: Weakness Objective Exam Vital Signs Date Time Temp Pulse Resp B/P (MAP) Pulse Ox O2 Delivery O2 Flow Rate FiO2 05/14/17 08:00 97.2 95 18 108/61 (77) 91 High Flow N/C 3.00 05/14/17 07:24 97 High Flow N/C 3.00 05/14/17 07:00 100 05/14/17 04:00 104 91 High Flow N/C 3.00 05/14/17 03:54 99 85 High Flow N/C 3.00 05/14/17 03:47 96 97 High Flow N/C 3.00 05/14/17 03:00 98.1 96 16 123/71 (88) 97 High Flow N/C 3.00 05/14/17 02:37 99 High Flow N/C 3.00 05/14/17 01:00 96 18 124/71 (88) 98 High Flow N/C 3.00 05/14/17 01:00 98 05/13/17 23:00 96.7 103 18 120/68 (85) 97 High Flow N/C 3.00 05/13/17 22:30 97 High Flow N/C 3.00 05/13/17 21:00 97.5 109 20 109/89 (96) 95 High Flow N/C 3.00 05/13/17 21:00 High Flow N/C 3.00 05/13/17 19:04 94 High Flow N/C 3.00 05/13/17 19:00 108 05/13/17 19:00 97.0 110 22 109/83 (92) 94 High Flow N/C 3.00 05/13/17 17:00 97.0 109 22 109/88 (95) 93 High Flow N/C 3.00 05/13/17 16:09 94 High Flow N/C 3.00 05/13/17 16:04 100 23 95 6.00 30.00 05/13/17 15:00 97.1 100 22 99/82 (88) 98 High Flow N/C 3.00 05/13/17 14:26 95 18 97 6.00 30.00 05/13/17 13:00 97.0 98 22 125/57 (79) 98 NIV Bilevel 30.00 05/13/17 13:00 100 05/13/17 12:44 100 19 97 6.00 30.00 05/13/17 11:00 96.6 98 20 131/72 (91) 97 NIV Bilevel 30.00 05/13/17 10:07 95 18 97 6.00 30.00 I & O 05/14/17 07:00 Intake Total 680 ml Output Total 2950 ml Balance -2270 ml Capillary Refill : Less Than 3 Seconds General Appearance: No Apparent Distress, WD/WN HEENT: PERRL/EOMI Neck: Full Range of Motion, Supple Respiratory: Chest Non Tender, Decreased Breath Sounds, Wheezing Cardiovascular: Regular Rate, Rhythm Gastrointestinal: normal bowel sounds, non tender, soft, no organomegaly, no pulsatile mass Extremity: Normal Capillary Refill, No Pedal Edema Neurologic/Psychiatric: Alert, Oriented x3, Normal Mood/Affect Skin: Warm/Dry Results Lab Laboratory Tests 05/14/17 05:20: White Blood Count 6.1, Red Blood Count 2.85L, Hemoglobin 8.0L, Hematocrit 25L, Mean Corpuscular Volume 88, Mean Corpuscular Hemoglobin 28, Mean Corpuscular Hemoglobin Concent 32, Red Cell Distribution Width 14.4, Platelet Count 284, Mean Platelet Volume 9.7, Sodium Level 133L, Potassium Level 3.9, Chloride Level 97L, Carbon Dioxide Level 23, Anion Gap 13, Blood Urea Nitrogen 30H, Creatinine 1.31H, Estimat Glomerular Filtration Rate 40, BUN/Creatinine Ratio 23 , Glucose Level 109H, Calcium Level 9.0, Total Bilirubin 0.2, Aspartate Amino Transf (AST/SGOT) 33, Alanine Aminotransferase (ALT/SGPT) 30, Alkaline Phosphatase 67, Total Protein 6.4, Albumin 3.7 Microbiology 05/12/17 Blood Culture - Preliminary, Resulted No growth 05/12/17 Influenza Types A,B Antigen (LISSY) - Final, Complete Assessment/Plan Assessment/Plan Assess & Plan/Chief Complaint COPD EXACERBATION PNEUMONIA RESPIRATORY DISTRESS INSOMNIA HYPERLIPIDEMIA GERD COPD EXACERBATION - ON STEROIDS, ANTIBIOTICS, BREATHING TREATMENTS, BIPAP, MONITOR SYMPTOMS. PNEUMONIA - ON LEVAQUIN, CONTINUE TREATMENT. RESPIRATORY DISTRESS - IMPROVED - PT OFF OF BIPAP - ON NASAL CANNULA INSOMNIA - RESUMED AMITRIPTYLINE HYPERLIPIDEMIA - HOLD STATIN AT THIS TIME. GERD - RESUMED PPI. DVT PROPHYLAXIS WITH LOVENOX AND SCD'S Clinical Quality Measures DVT/VTE Risk/Contraindication: Risk Factor Score Per Nursin RFS Level Per Nursing on Admit: 4+=Very High CAROLINE DE LA TORRE MD May 14, 2017 09:19
--- NOTE | 2017-05-14 09:33 | Diagnostic Imaging Report ---
INDICATION: Pneumonia. Time of exam 8:22 AM Correlation is made with prior study one day earlier. The heart is enlarged but stable. There continues to be mixed interstitial and airspace infiltrate in the right base. The left lung is fairly clear. No significant left-sided effusion is seen. There is slight blunting of the right costophrenic angle suggestive of pleural fluid. Mid and upper lung garrison are clear. There is no pneumothorax. IMPRESSION: Continued right basilar pneumonia and small right effusion, similar to the examination one day earlier. Dictated by: Dictated on workstation # [id number]
[2017-05-14] MEDS ORDERED: ALPRAZolam 0.25 MG (XANAX) TAB PO PRN (14:30)
[2017-05-14] MEDS: fentaNYL INJECTION 100 MCG/2 ML AMP IVP PRN (14:32)
[2017-05-14] MEDS: predniSONE 20 MG TAB PO SCH (14:33)
[2017-05-14] MEDS: PROMETHAZINE/ CODEINE SYRUP 5 ML UDC PO PRN (14:34)
[2017-05-14] MEDS: PANTOPRAZOLE 40 MG (PROTONIX) TAB PO SCH (16:38)
[2017-05-14] MEDS: ENOXAPARIN 40 MG/0.4 ML (LOVENOX) SYR SC SCH (20:42)
[2017-05-15] VITALS: BP 122/65
[2017-05-15] MEDS: RT-ALBUTEROL/IPRATROPIUM 3 ML (DUONEB) VIAL INH SCH ×3 (01:15→10:24)
[2017-05-15] MEDS: fentaNYL INJECTION 100 MCG/2 ML AMP IVP PRN (01:23)
[2017-05-15] MEDS: PROMETHAZINE/ CODEINE SYRUP 5 ML UDC PO PRN (01:23)
[2017-05-15 04:00] VITALS: BP 129/73
[2017-05-15] MEDS: SUCRALFATE 1 GM (CARAFATE) TAB PO SCH ×2 (06:09→10:41)
[2017-05-15] MEDS: predniSONE 20 MG TAB PO SCH (06:09)
[2017-05-15] MEDS: PANTOPRAZOLE 40 MG (PROTONIX) TAB PO SCH (06:09)
[2017-05-15] MEDS: BENZONATATE 100 MG (TESSALON) CAPSULE PO PRN (06:10)
[2017-05-15] MEDS ORDERED: predniSONE 20 MG TAB PO SCH (07:00)
[2017-05-15 08:00] VITALS: BP 139/68
[2017-05-15] MEDS: NICOTINE 21 MG (NICODERM) PATCH TD SCH (09:25)
[2017-05-15] MEDS: SENNA W/DOCUSATE (SENOKOT S) TABLET PO SCH (09:26)
[2017-05-15] MEDS ORDERED: LEVO750T39 PO (09:28)
[2017-05-15] MEDS ORDERED: CODE118S2 PO (09:28)
[2017-05-15] MEDS ORDERED: SUCR1TAB PO (09:28)
[2017-05-15] MEDS ORDERED: L.AC1CAP6 PO (09:28)
[2017-05-15] MEDS ORDERED: PRD20T PO (09:28)
--- NOTE | 2017-05-15 09:30 | D/C HH Face to Face Order ---
D/C Face to Face Orders Instructions for Patient Patient Instructions/FollowUp: follow up with [facility] in the next 7 days from discharge Physician to follow Patient: irma Discharge Diet for Home: Regular Diet Patient Data-Allergies,Ht & Wt Patient Allergies: Coded Allergies: Penicillins (Verified Allergy, Unknown, PT HAS RECEIVED ANCEF WITHOUT ISSUE, 05/30/14) meperidine (Verified Allergy, Unknown, 05/30/14) Height (Feet): 5 Height (Inches): 8.00 Weight (Pounds): 189 Weight (Ounces): 6.4 Home Health Need/Face to Face Date of Face to Face: May 15, 2017 Clinical Findings: Generalized weakness and fatigue, Muscle weakness, Shortness of breath I have seen Pt [id number]: Yes Discharged To: Home Diagnosis/Conditions: copd, pneumonia, oxygen dependence, gerd, htn Problems/Diagnosis/Condition: Patient is Homebound due to: Johnathon fall risk due to instabilty, Muscle weakness , Shortness of breath/distress Homebound Status Due to the above stated illness, injury or surgical procedure (medical condition or diagnosis) and associated clinical findings, the patient is homebound because of his/her inability to leave home except with aid of a supportive device and/or person AND leaving the home requires a considerable and taxing effort or is medically contraindicated. Pt req the following assistanc: Medically contraindicated Home Health Nursing Orders Home Health Services Order: Nursing Services, Physical Therapy-Evaluate & Treat Home Health Infusion Therapy Line Start Date: May 12, 2017 Line Start Time: 2044 Line Type: Saline Lock Site Location: Forearm Therapy Orders Therapy Orders: Physical Therapy, PT to assess for OT Therapy Specific Orders: Eval assistive deivces, Teach enviro modifications/ safety, Increase strength/endurance Certify Stmt I certify that this patient is under my care and that I, a nurse practitioner or a physician; a assistant store manager operations working with me, had a face to face encounter that - meets the physician face to face encounter requirements with this patient as dated. Medication List: Active Scripts Active Reported Prednisone 20 Mg Tab 20 Mg PO 3 Days Prednisone 20 Mg Tab 20 Mg PO BID 3 Days Prednisone 20 Mg Tab 20 Mg PO TID 3 Days Levofloxacin 500 Mg Tablet 500 Mg PO DAILY Furosemide 40 Mg Tablet 40 Mg PO DAILY PRN TAKES AN EXTRA DOSE OF 40MG NEEDED FOR SWELLING Acetaminophen Extra Strength (Acetaminophen) 500 Mg Tablet 1,000 Mg PO Q6H PRN TAKES 2 (500MG) TABLETS Furosemide 40 Mg Tablet 40 Mg PO DAILY Buspirone HCl 5 Mg Tablet 2.5 Mg PO TID TAKES 1/2 (5MG) TABLET Pantoprazole Sodium 40 Mg Tablet.dr 40 Mg PO BID Amitriptyline HCl 25 Mg Tablet 25 Mg PO HS Ondansetron HCl 4 Mg Tablet 4 Mg PO Q8H PRN Milk of Magnesia (Magnesium Hydroxide) 400 Mg/5 Ml Oral.susp 30 Ml PO DAILY PRN Iprat-Albut 0.5-3(2.5) mg/3 ml (Ipratropium/Albuterol Sulfate) 3 Ml Ampul.neb 3 Ml IH Q4H PRN Docusate Sodium 100 Mg Capsule 100 Mg PO BID Atorvastatin Calcium 10 Mg Tablet 10 Mg PO HS Combivent Respimat Inhal Clayton (Albuterol/Ipratropium) 4 Gm Aero 1 Puff IH QID PRN Latanoprost 2.5 Ml Drops 1 Drop OU HS Polyethylene Glycol 3350 255 Gm Powder 17 Gm PO DAILY PRN Potassium Chloride 10 Meq Tablet.er 10 Meq PO DAILY Divalproex Sodium 250 Mg Tablet.dr 250 Mg PO HS Sertraline HCl 100 Mg Tablet 100 Mg PO BID Bystolic (Nebivolol HCl) 10 Mg Tab 10 Mg PO DAILY Fluticasone Propionate 16 Gm [place].susp 1 Clayton NS BID My orders: Orders - CAROLINE DE LA TORRE MD Levofloxacin Tablet (Levaquin Tablet) (05/15/17 21:00) Pantoprazole Tablet (Protonix Tablet) (05/14/17 17:00) Prednisone Tablet (Deltasone Tablet) (05/14/17 13:00) Alprazolam Tablet (Xanax Tablet) (05/14/17 14:30) Fentanyl Injection (Sublimaze Injection (05/14/17 14:30) Promethazine/ Codeine Syrup (Phenergan W (05/14/17 14:30) Attending Discharge (05/15/17 09:18) CAROLINE DE LA TORRE MD May 15, 2017 09:30
--- NOTE | 2017-05-15 09:32 | Discharge Summary ---
Diagnosis/Chief Complaint Date of Admission May 12, 2017 at 22:10 Date of Discharge Discharge Date: May 15, 2017 Discharge Time: 1030 Admission Diagnosis Admission Diagnosis COPD EXACERBATION PNEUMONIA RESPIRATORY DISTRESS INSOMNIA HYPERLIPIDEMIA GERD Reason Hospital Visit PT REPORTS THAT SHE PRESENTED TO THE HOSPITAL AFTER HAVING WORSENING AND SEVERE DYSPNEA. SHE REPORTS THAT SHE HAS BEEN HAVING WORSENING BREATHING OVER A FEW DAYS PRIOR TO ADMISSION. SHE REPORTS THAT SHE HAD BEEN USING HER OXYGEN PER USUAL, BUT HER BREATHING HAS NOT BEEN RESPONDING TO HER TREATMENTS OR THE OXYGEN. SHE WAS IN ACUTE RESPIRATORY DISTRESS ON ADMISSION. Discharge Summary Discharge Physical Examination Allergies: Coded Allergies: Penicillins (Verified Allergy, Unknown, PT HAS RECEIVED ANCEF WITHOUT ISSUE, 05/30/14) meperidine (Verified Allergy, Unknown, 05/30/14) Vitals & I&Os Vital Signs Date Time Temp Pulse Resp B/P (MAP) Pulse Ox O2 Delivery O2 Flow Rate FiO2 05/15/17 07:00 105 05/15/17 06:15 100 High Flow N/C 3.00 05/15/17 04:00 96.0 17 129/73 (91) 05/13/17 08:22 30 Discharge Instructions to patient/family Please see electronic discharge instructions given to patient. Discharge Medications Reviewed and agree with Discharge Medication list on patient's Discharge Instruction sheet Clinical Quality Measures DVT/VTE Risk/Contraindication: Risk Factor Score Per Nursin RFS Level Per Nursing on Admit: 4+=Very High CAROLINE DE LA TORRE MD May 15, 2017 09:32
[2017-05-15 12:00] VITALS: BP 133/66
[2017-05-15] MEDS ORDERED: LEVOFLOXACIN 750 MG TAB (LEVAQUIN) PO SCH (21:00)
== END 2017-05-15 14:08 | disposition home health service (06) | DRG 189 ==
LOC: EDUNIT# 20:44 → ER 20:45 → 4TH 22:10 → ICU 22:10
PROVIDERS: ADMIT Family Medicine; ATTEND Family Medicine
DX: J95.822 Acute and chronic postprocedural respiratory failure (principal); J44.1 Chronic obstructive pulmonary disease with (acute) exacerbation; J18.9 Pneumonia, unspecified organism; I11.0 Hypertensive heart disease with heart failure; I50.9 Heart failure, unspecified; I69.354 Hemiplegia and hemiparesis following cerebral infarction affecting left non-dominant side; E87.5 Hyperkalemia; D64.9 Anemia, unspecified; F17.210 Nicotine dependence, cigarettes, uncomplicated; I25.10 Atherosclerotic heart disease of native coronary artery without angina pectoris; K21.9 Gastro-esophageal reflux disease without esophagitis; M79.7 Fibromyalgia; F41.9 Anxiety disorder, unspecified; H40.9 Unspecified glaucoma; E78.5 Hyperlipidemia, unspecified; G47.00 Insomnia, unspecified; Z99.81 Dependence on supplemental oxygen
CPT/HCPCS: 36415; 51702; 71045; 71046; 71275; 80053; 81000; 82550; 82553; 82805; 83605; 83735; 83880; 84484; 85007; 85025; 85027; 85610; 85730; 87040; 87804; 93005; 93041; 94640; 94760; 94761; 96374; 96375

== ENCOUNTER → 2017-06-20 | Outpatient (CLI) | payer MEDICARE, MEDICAID ==
[~2017-06-20] MED LIST changes: +CODE118S2 PO; +L.AC1CAP6 PO; +LEVO500T80 PO; +LEVO750T39 PO; +SUCR1TAB PO
[2017-06-20 10:00] LABS: BASOPHILS % (AUTO) 0 % (0-10); EOSINOPHILS # (AUTO) 0.1 10^3/uL (0.0-0.3); EOSINOPHILS % (AUTO) 2 % (0-10); HEMATOCRIT 30 % (35-52); LYMPHOCYTES # (AUTO) 1.1 X 10^3 (1.0-4.0); LYMPHOCYTES % (AUTO) 27 % (12-44); MEAN CORPUSCULAR HEMOGLOBIN 27 PG (25-34); MEAN CORPUSCULAR HGB CONC 30 G/DL (32-36); MEAN CORPUSCULAR VOLUME 91 FL (80-99); MEAN PLATELET VOLUME 10.3 FL (7.4-10.4); MONOCYTES # (AUTO) 0.6 X 10^3 (0.0-1.0); MONOCYTES % (AUTO) 16 % (0-12); NEUTROPHILS # (AUTO) 2.3 X 10^3 (1.8-7.8); NEUTROPHILS % (AUTO) 56 % (42-75); PLATELET COUNT 209 10^3/uL (130-400); RED CELL DISTRIBUTION WIDTH 19.3 % (10.0-14.5); WHITE BLOOD COUNT 4.1 10^3/uL (4.3-11.0)
[2017-06-20 10:21] LABS: ALBUMIN 3.4 GM/DL (3.2-4.5); BILIRUBIN,TOTAL 0.2 MG/DL (0.1-1.0); CALCIUM 9.1 MG/DL (8.5-10.1); CREATININE SERUM 1.83 MG/DL (0.60-1.30); POTASSIUM 5.2 MMOL/L (3.6-5.0); TOTAL PROTEIN 5.9 GM/DL (6.4-8.2)
== END ==
LOC: HH 08:00
PROVIDERS: ATTEND Family Medicine
DX: J44.9 Chronic obstructive pulmonary disease, unspecified (principal); I50.9 Heart failure, unspecified
CPT/HCPCS: 80053; 85025

== ENCOUNTER 2017-07-31 15:03 | Inpatient (IN) | payer MEDICARE, MEDICAID ==
[~2017-07-31] VITALS: Ht 167.6 cm; Wt 79.5 kg
[2017-07-31] MEDS ORDERED: fentaNYL INJECTION 100 MCG/2 ML AMP IVP ONE (15:15)
[2017-07-31] MEDS ORDERED: ORPHENADRINE 60 MG/2 ML (NORFLEX) AMP IV ONE (15:15)
--- NOTE | 2017-07-31 15:19 | ED Fall/Injury ---
General Stated Complaint: LOWER BACK PAIN Source: patient, EMS Exam Limitations: no limitations History of Present Illness Date Seen by Provider: July 31, 2017 Time Seen by Provider: 15:13 Initial Comments To ER per EMS from home with reports of a fall and subsequent back pain. She did hit her head but there was no loss of consciousness and she recalls all events. She has had some urinary incontinence but she has had urinary incontinence ever since she had a stroke 3 years ago so this is not a new symptom. She complains of severe nonradiating low back pain. She is currently on steroids at prednisone 40 mg daily as part of the steroid taper that started on Friday07/28/17 prescribed for COPD exacerbation. She does wear oxygen at home at night and as needed during the day. She continues to smoke 2 packs of cigarettes per day. Occurred: just prior to arrival Severity: moderate Injuries/Pain Location: back Allergies and Home Medications Allergies Coded Allergies: Penicillins (Verified Allergy, Unknown, PT HAS RECEIVED ANCEF WITHOUT ISSUE, 05/30/14) meperidine (Verified Allergy, Unknown, 05/30/14) Home Medications Acetaminophen 500 Mg Tablet, 1,000 MG PO Q6H PRN for PAIN-MILD, (Reported) TAKES 2 (500MG) TABLETS Albuterol/Ipratropium 4 Gm Aero, 1 PUFF IH QID PRN for SHORTNESS OF BREATH, ( Reported) Amitriptyline HCl 25 Mg Tablet, 25 MG PO HS, (Reported) Atorvastatin Calcium 10 Mg Tablet, 10 MG PO HS, (Reported) Buspirone HCl 5 Mg Tablet, 2.5 MG PO TID, (Reported) TAKES 1/2 (5MG) TABLET Divalproex Sodium 250 Mg Tablet.dr, 250 MG PO HS, (Reported) Docusate Sodium 100 Mg Capsule, 100 MG PO BID, (Reported) Fluticasone Propionate 16 Gm Brenham.susp, 1 SPRAY NS BID, (Reported) Furosemide 40 Mg Tablet, 40 MG PO DAILY, (Reported) Furosemide 40 Mg Tablet, 40 MG PO DAILY PRN for SWELLING, (Reported) TAKES AN EXTRA DOSE OF 40MG NEEDED FOR SWELLING Ipratropium/Albuterol Sulfate 3 Ml Ampul.neb, 3 ML IH Q4H PRN for SHORTNESS OF BREATH, (Reported) L.acidoph & Paracasei,B.lactis 1 Each Capsule, 1 EACH PO BID Prescribed by: CAROLINE DE LA TORRE on 05/15/17927 Latanoprost 2.5 Ml Drops, 1 DROP OU HS, (Reported) Levofloxacin 750 Mg Tablet, 750 MG PO Q48H@2100 Prescribed by: CAROLINE DE LA TORRE on 05/15/17927 Magnesium Hydroxide 400 Mg/5 Ml Oral.susp, 30 ML PO DAILY PRN for CONSTIPATION- 7TH LINE, (Reported) Nebivolol HCl 10 Mg Tab, 10 MG PO DAILY, (Reported) Ondansetron HCl 4 Mg Tablet, 4 MG PO Q8H PRN for NAUSEA/VOMITING-1ST LINE, ( Reported) Pantoprazole Sodium 40 Mg Tablet.dr, 40 MG PO BID, (Reported) Polyethylene Glycol 3350 255 Gm Powder, 17 GM PO DAILY PRN for CONSTIPATION-2ND LINE, (Reported) Potassium Chloride 10 Meq Tablet.er, 10 MEQ PO DAILY, (Reported) Prednisone 20 Mg Tab, 40 MG PO DAILY@0700 2tab/day x3days, 1tab/day x3days, 1/2 tab/day x3days and call [facility] for further orders Prescribed by: CAROLINE DE LA TORRE on 05/15/17927 Promethazine HCl/Codeine 118 Ml Syrup, 5-10 ML PO Q6HR PRN for COUGH Prescribed by: CAROLINE DE LA TORRE on 05/15/17927 Sertraline HCl 100 Mg Tablet, 100 MG PO BID, (Reported) Sucralfate 1 Gm Tablet, 1 GM PO ACHS Prescribed by: CAROLINE DE LA TORRE on 05/15/17927 Patient Home Medication List Home Medication List Reviewed: Yes Review of Systems Constitutional: see HPI Eyes: No Symptoms Reported Ears, Nose, Mouth, Throat: no symptoms reported Respiratory: see HPI, cough, dyspnea on exertion (chronic) Genitourinary: no symptoms reported Musculoskeletal: no symptoms reported Skin: no symptoms reported Psychiatric/Neurological: No Symptoms Reported Past Vafiztf-Nocezh-Uidspo Hx Patient Social History Type Used: Cigarettes 2nd Hand Smoke Exposure: Yes Recent Hopitalizations: No Immunizations Up To Date Tetanus Booster (TDap): Unknown Date of Pneumonia Vaccine: Dec 15, 2013 Date of Influenza Vaccine: Dec 12, 2016 Seasonal Allergies Seasonal Allergies: No Past Medical History Surgeries: Yes Abdominal, Breast, Gallbladder, Hysterectomy, Orthopedic, Rectal, Tonsillectomy , Vascular Surgery Respiratory: Yes (COPD--O2 AT 3L/NC CONTINUOUSLY) COPD Currently Using CPAP: No Currently Using BIPAP: No Cardiac: Yes (CAROTID DISEASE; PERIPHERAL VASCULAR DISEASE--STENTS IN LEG, PER PT; CHF) Coronary Artery Disease, High Cholesterol, Hypertension, Peripheral Vascular Neurological: Yes (LEFT SIDE WEAKNESS--LAST TIA 01/2016) Seizure Disorder, Stroke, TIA 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 Disorders: No Female 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 Disorders: 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: Hysterectomy, Menopausal Sexually Transmitted Disease: No HIV/AIDS: No Genitourinary: No Gastrointestinal: Yes (ESPHAGEAL STRICTURE) Abdominal Hernia, Gastroesophageal Reflux, Chronic Constipation, Hemorrhoids, Polyps, Hiatal Hernia Musculoskeletal: Yes (CHRONIC GENERALIZED PAIN , FX RIGHT HIP 09/09/15; LEFT HIP FX 05/2016) Arthritis, Fibromyalgia, Chronic Back Pain, Fractures Endocrine: No HEENT: Yes Glaucoma Hearing Impairment: Denies Cancer: Yes Breast Did You Recieve Any Treatments: Yes What Type of Treatment Did You: Surgical Intervention Psychosocial: Yes ("SEVERE ANXIETY" PER PT) Anxiety Integumentary: No Blood Disorders: Yes (ANEMIA) Adverse Reaction/Blood Tranf: No Family Medical History Alcoholism 19 MOTHER, Onset:20's - 25 Aphasia 19 MOTHER, Onset:40's - 50 Asthma 19 FATHER, Onset:Unknown Congenital disease Son, Onset:Pre- Diabetes mellitus G8 SISTER, Onset:60 years & older FH: ovarian cancer G8 SISTER, Onset:Unknown FHx: stomach cancer 19 MOTHER, Onset:60 years & older Glaucoma Grandaughter, Onset:Unknown Hypertension 19 MOTHER, Onset:Unknown Infertility G8 SISTER, Onset:Pre- Tuberculosis G8 SISTER, Onset:30's - 40 No Family History of: AIDS Abdominal aortic aneurysm [place]'s disease Alzheimer's disease Cancer of mouth Cardiovascular disease Cataracts Colon cancer Completed stroke Congenital heart disease Coronary thrombosis Cystic fibrosis Deafness or hearing loss Dementia Drug abuse Dysphasia Fibrocystic disease of breast Gastroenteritis Gout Headache disorder Hypercholesterolemia Kidney disease Myocardial infarction Neoplasm Not obtainable due to adoption Osteoporosis Parkinson's disease Prostate cancer Psychosocial problem Respiratory disorder Seizure disorder Severe allergy Thyroid disease Visual disorder Cancer, Diabetes Physical Exam Vital Signs Vital Signs - First Documented 07/31/17 07/31/17 15:03 16:14 Temp 98.1 Pulse 70 Resp 16 B/P (MAP) 134/56 (82) Pulse Ox 98 O2 Delivery Room Air O2 Flow Rate 3.00 Capillary Refill : General Appearance: WD/WN, moderate distress, other (Cannot move without significant pain in the low back.) HEENT: PERRL/EOMI, normal ENT inspection Neck: non-tender, full range of motion; No tender lateral, No tender midline Cardiovascular: regular rate, rhythm, no murmur Respiratory: decreased breath sounds, wheezing (She does have a history of COPD ) Gastrointestinal: normal bowel sounds, non tender, soft Extremities: normal range of motion, non-tender, other (She moves all extremities) Neurologic/Psychiatric: alert, normal mood/affect, oriented x 3 Skin: normal color, warm/dry [place] Coma Score Best Eye Response: (4) Open Spontaneously Best Verbal Response: (5) Oriented Best Motor Response: (6) Obeys Commands Petr Total: 15 Progress/Results/Core Measures Results/Orders Lab Results Laboratory Tests Test 07/31/17 15:20 Range/Units White Blood Count 9.5 4.3-11.0 10^3/uL Red Blood Count 3.64 L 4.35-5.85 10^6/uL Hemoglobin 10.3 L 11.5-16.0 G/DL Hematocrit 33 L 35-52 % Mean Corpuscular Volume 90 80-99 FL Mean Corpuscular Hemoglobin 28 25-34 PG Mean Corpuscular Hemoglobin Concent 31 L 32-36 G/DL Red Cell Distribution Width 19.2 H 10.0-14.5 % Platelet Count 257 130-400 10^3/uL Mean Platelet Volume 9.4 7.4-10.4 FL Neutrophils (%) (Auto) 73 42-75 % Lymphocytes (%) (Auto) 16 12-44 % Monocytes (%) (Auto) 10 0-12 % Eosinophils (%) (Auto) 1 0-10 % Basophils (%) (Auto) 0 0-10 % Neutrophils # (Auto) 6.9 1.8-7.8 X 10^3 Lymphocytes # (Auto) 1.5 1.0-4.0 X 10^3 Monocytes # (Auto) 0.9 0.0-1.0 X 10^3 Eosinophils # (Auto) 0.1 0.0-0.3 10^3/uL Basophils # (Auto) 0.0 0.0-0.1 10^3/uL Sodium Level 142 135-145 MMOL/L Potassium Level 3.7 3.6-5.0 MMOL/L Chloride Level 105 98-107 MMOL/L Carbon Dioxide Level 24 21-32 MMOL/L Anion Gap 13 5-14 MMOL/L Blood Urea Nitrogen 24 H 7-18 MG/DL Creatinine 1.27 0.60-1.30 MG/DL Estimat Glomerular Filtration Rate 41 BUN/Creatinine Ratio 19 Glucose Level 100 70-105 MG/DL Calcium Level 9.7 8.5-10.1 MG/DL Total Bilirubin 0.3 0.1-1.0 MG/DL Aspartate Amino Transf (AST/SGOT) 18 5-34 U/L Alanine Aminotransferase (ALT/SGPT) 11 0-55 U/L Alkaline Phosphatase 69 40-136 U/L Total Protein 6.9 6.4-8.2 GM/DL Albumin 4.0 3.2-4.5 GM/DL My Orders Orders - MAHAMED COBOS TRAP PULLER Cbc With Automated Diff (07/31/17 15:11) Comprehensive Metabolic Panel (07/31/17 15:11) Iv Heplock-Insert (Order) (07/31/17 15:11) Fentanyl Injection (Sublimaze Injection (07/31/17 15:15) Orphenadrine Injection (Norflex Injectio (07/31/17 15:15) Ct Head/Cervical Spine Wo (07/31/17 15:11) Ct Lumbar Spine Wo (07/31/17 15:11) Albuterol/Ipra Inhalation Soln (Duoneb I (07/31/17 15:45) Svn Small Volume Nebulizer (07/31/17 15:34) Albuterol Pre-Mix Nebs (Rt) (Proventil (07/31/17 16:30) Svn Small Volume Nebulizer (07/31/17 16:16) Albuterol Pre-Mix Nebs (Rt) (Proventil (07/31/17 16:13) Medications Given in ED Current Medications Medications Dose Ordered Sig/Anktia Route Start Time Stop Time Status Last Admin Dose Admin Albuterol/ Ipratropium 3 ml ONCE ONCE INH 07/31/17 15:45 07/31/17 15:46 DC 07/31/17 16:13 3 ML Fentanyl Citrate 50 mcg ONCE ONCE IVP 07/31/17 15:15 07/31/17 15:16 DC 07/31/17 15:22 50 MCG Orphenadrine Citrate 30 mg ONCE ONCE IV 07/31/17 15:15 07/31/17 15:16 DC 07/31/17 15:21 30 MG Vital Signs/I&O 07/31/17 07/31/17 07/31/17 07/31/17 15:03 15:10 15:22 16:14 Temp 98.1 98.1 98.3 Pulse 70 70 Resp 16 16 B/P (MAP) 134/56 (82) 134/56 (82) Pulse Ox 98 98 95 O2 Delivery Room Air Room Air Nasal Cannula O2 Flow Rate 3.00 07/31/17 16:19 Pulse Ox 95 O2 Delivery Nasal Cannula O2 Flow Rate 3.00 Diagnostic Imaging Diagonstic Imaging: CT Comments NAME: JUDITH ROMEO [facility] REC#: [id number] PT STATUS: REG ER : 1945 PHYSICIAN: MAHAMED COBOS APRN ADMIT DATE: 07/31/17/ER Draft Date of Exam:07/31/17 CT HEAD/CERVICAL SPINE WO INDICATION: Trauma, fall with head and neck pain. CT BRAIN FINDINGS: Noncontrast brain CT was performed. There are no extra-axial fluid collections. No acute intracranial hemorrhage. There is diffuse atrophic change, focally more prominent in the right hemisphere, similar in appearance compared to the prior study of 01/09/2017. There is no calvarial fracture. CT CERVICAL SPINE FINDINGS: Axial slices were obtained with sagittal and coronal reconstructions without contrast. There is no evidence of cervical spine fracture. There are diffuse degenerative changes in the lumbar facets, left greater than right. There is loss of lordosis. There is no overt subluxation, however. IMPRESSION: 1. CT brain shows atrophic changes, right greater than left, with no acute intracranial abnormality or hemorrhage. 2. The cervical spine demonstrates degenerative changes, as described above, with no acute fracture or subluxation. Dictated on workstation # [id number] Dict: 07/31/17 1604 Trans: 07/31/[address] [facility] [id number] Interpreted by: JANET HANEY MD Electronically signed by: Departure Communication (Admissions) Time/Spoke to Admitting Phy: 16:27 I did discuss with the patient and daughter at the bedside the difficulty of achieving adequate pain control as a side effect of opiate use is respiratory depression which is a serious issue with her severe COPD. She understands. 1627- I'm not able to even sit the patient up in bed without her screaming in pain. I did discuss the case with Dr. Coronado who agrees to admit for pain control. Impression Primary Impression: T12 compression fracture Additional Impression: COPD (chronic obstructive pulmonary disease) Disposition: 09 ADMITTED INPATIENT Condition: Stable Admissions Decision to Admit Reason: Admit from ER (General) Decision to Admit/Date: July 31, 2017 Time/Decision to Admit Time: 22:39 Departure-Patient Inst. Referrals: KELSIE CORONADO DO (PCP/Family) Primary Care Physician MAHAMED COBOS APRN July 31, 2017 15:19
[2017-07-31 15:31] LABS: BASOPHILS % (AUTO) 0 % (0-10); EOSINOPHILS # (AUTO) 0.1 10^3/uL (0.0-0.3); EOSINOPHILS % (AUTO) 1 % (0-10); HEMATOCRIT 33 % (35-52); HEMOGLOBIN 10.3 G/DL (11.5-16.0); LYMPHOCYTES # (AUTO) 1.5 X 10^3 (1.0-4.0); LYMPHOCYTES % (AUTO) 16 % (12-44); MEAN CORPUSCULAR HEMOGLOBIN 28 PG (25-34); MEAN CORPUSCULAR HGB CONC 31 G/DL (32-36); MEAN CORPUSCULAR VOLUME 90 FL (80-99); MEAN PLATELET VOLUME 9.4 FL (7.4-10.4); MONOCYTES # (AUTO) 0.9 X 10^3 (0.0-1.0); MONOCYTES % (AUTO) 10 % (0-12); NEUTROPHILS # (AUTO) 6.9 X 10^3 (1.8-7.8); NEUTROPHILS % (AUTO) 73 % (42-75); PLATELET COUNT 257 10^3/uL (130-400); RED BLOOD COUNT 3.64 10^6/uL (4.35-5.85); RED CELL DISTRIBUTION WIDTH 19.2 % (10.0-14.5); WHITE BLOOD COUNT 9.5 10^3/uL (4.3-11.0)
[2017-07-31] MEDS ORDERED: RT-ALBUTEROL/IPRATROPIUM 3 ML (DUONEB) VIAL INH ONE (15:45)
[2017-07-31 15:52] LABS: BILIRUBIN,TOTAL 0.3 MG/DL (0.1-1.0); CALCIUM 9.7 MG/DL (8.5-10.1); CREATININE SERUM 1.27 MG/DL (0.60-1.30); POTASSIUM 3.7 MMOL/L (3.6-5.0); TOTAL PROTEIN 6.9 GM/DL (6.4-8.2)
[2017-07-31] MEDS ORDERED: RT-ALBUTEROL SULF 2.5 MG/3 ML PRE-MIX VIAL ONE (16:13)
--- NOTE | 2017-07-31 16:15 | Diagnostic Imaging Report ---
INDICATION: Trauma, fall with head and neck pain. CT BRAIN FINDINGS: Noncontrast brain CT was performed. There are no extra-axial fluid collections. No acute intracranial hemorrhage. There is diffuse atrophic change, focally more prominent in the right hemisphere, similar in appearance compared to the prior study of 01/09/2017. There is no calvarial fracture. CT CERVICAL SPINE FINDINGS: Axial slices were obtained with sagittal and coronal reconstructions without contrast. There is no evidence of cervical spine fracture. There are diffuse degenerative changes in the lumbar facets, left greater than right. There is loss of lordosis. There is no overt subluxation, however. IMPRESSION: 1. CT brain shows atrophic changes, right greater than left, with no acute intracranial abnormality or hemorrhage. 2. The cervical spine demonstrates degenerative changes, as described above, with no acute fracture or subluxation. Dictated by: Dictated on workstation # [id number]
--- NOTE | 2017-07-31 16:22 | Diagnostic Imaging Report ---
CLINICAL INDICATION: Patient fell from standing position at home today. Patient states she hit her head and complains of low back pain. Patient still having muscle spasms during the exam. EXAM: CT scan of the lumbar spine performed without IV contrast. Sagittal and coronal reformatted images are created. COMPARISON: MRI of the lumbar spine without contrast dated 05/26/2012. CT angiogram of the chest dated 05/12/2017. FINDINGS: There is a roughly 3.4 cm distal abdominal aortic aneurysm which is only partially measured on the coronal sequence. There is interval development of a roughly 50% anterior wedge compression fracture deformity of the T12 vertebra with disruption of the cortical margins. There is no significant retropulsed fracture component. There is no significant paraspinal soft tissue abnormality. There is no other area concerning for acute fracture or dislocation. There is facet arthropathy of the lower lumbar spine. L1-L2 and L2-L3: There is minimal posterior disc bulge at the L2-L3 level. Otherwise, there is no significant central spinal canal or neuroforaminal narrowing. L3-L4: There is a small posterior disc herniation. There is mild facet arthropathy. There is no significant neuroforaminal narrowing. L4-L5: There is grade 1 anterolisthesis of L4 on L5 with no pars defect seen and is likely degenerative. There is a diffuse disc bulge with bilateral facet arthropathy/hypertrophy. There is moderate left neuroforaminal narrowing and mild to moderate right neuroforaminal narrowing. There is at least moderate central canal narrowing. L5-S1: There is a diffuse disc bulge at the L5-S1 level, facet arthropathy and ligamentum flavum buckling. There is at least mild central canal narrowing and mild to moderate right neuroforaminal narrowing. There is no significant left neuroforaminal narrowing. IMPRESSION: 1: There is an acute anterior wedge compression fracture deformity of the T12 vertebra. There is no significant retropulsed fragment. 2: There is grade 1 anterolisthesis of L4 on L5 related to degenerative changes. 3: There is multilevel lumbar spine degenerative disease. 4: There is a distal abdominal aortic aneurysm. Results of this report regarding T12 vertebral body fracture were discussed with Skip Lindo APRN via the telephone on 07/31/2017 at 1610 hrs. Dictated by: Dictated on workstation # [id number]
[2017-07-31] MEDS ORDERED: RT-ALBUTEROL SULF 2.5 MG/3 ML PRE-MIX VIAL INH SCH (16:30)
[2017-07-31] MEDS ORDERED: morphine INJ 10 MG/ML 1ML (SYR OR VIAL) IVP ONE (16:45)
[2017-07-31 17:46] VITALS: BP 149/67
[2017-07-31] MEDS ORDERED: NALOXONE 0.4 MG/ML 1 ML (NARCAN) VIAL IV PRN (18:00)
[2017-07-31] MEDS ORDERED: ONDANSETRON 4 MG/2 ML (SDV) Z0FRAN IV PRN (18:00)
[2017-07-31] MEDS ORDERED: HYDROcodone/APAP 5 MG/325 MG (LORTAB) TAB PO PRN (18:00)
[2017-07-31] MEDS ORDERED: CATHETER FLUSH 10 ML SYR IV PRN ×2 (18:00)
[2017-07-31 18:20] VITALS: BP 149/67
[2017-07-31] MEDS: NICOTINE 21 MG (NICODERM) PATCH TD SCH (18:51)
[2017-07-31] MEDS ORDERED: RT-ALBUTEROL/IPRATROPIUM 3 ML (DUONEB) VIAL INH PRN (19:45)
[2017-07-31 20:07] VITALS: BP 143/67
[2017-07-31] MEDS: RT-ALBUTEROL/IPRATROPIUM 3 ML (DUONEB) VIAL INH SCH (22:00)
[2017-07-31] MEDS: fentaNYL INJECTION 100 MCG/2 ML AMP IV PRN ×2 (22:38→23:41)
[2017-07-31] MEDS: CATHETER FLUSH 10 ML SYR IV SCH ×2 (22:39)
[2017-08-01 00:23] VITALS: BP 146/69
[2017-08-01] MEDS: fentaNYL INJECTION 100 MCG/2 ML AMP IV PRN ×2 (00:43→02:58)
[2017-08-01] MEDS: PHENAZOPYRIDINE 100 MG (PYRIDIUM) TABLET PO SCH ×4 (01:22→17:32)
[2017-08-01] MEDS: RT-ALBUTEROL/IPRATROPIUM 3 ML (DUONEB) VIAL INH SCH ×4 (02:52→19:00)
[2017-08-01] MEDS: KETOROLAC 15 MG/ML VIAL IVP PRN ×2 (04:27→15:02)
[2017-08-01 04:28] VITALS: BP 140/64
[2017-08-01] MEDS: CATHETER FLUSH 10 ML SYR IV SCH ×6 (05:59→20:33)
[2017-08-01 08:00] VITALS: BP 125/70
[2017-08-01] MEDS: NICOTINE 21 MG (NICODERM) PATCH TD SCH (08:17)
[2017-08-01] MEDS: NICOTINE PATCH REMOVAL TP SCH (08:17)
[2017-08-01] MEDS: CALCITONIN NASAL 200 INTLU/AC (FORTICAL) 3.7 ML BTL SCH (08:17)
[2017-08-01] MEDS: oxyCODONE/APAP 10/325MG (PERCOCET 10) TABLET PO PRN ×3 (08:18→23:54)
[2017-08-01] MEDS ORDERED: LOSA50TA36 PO (08:44)
[2017-08-01] MEDS ORDERED: SPIR25TA3 PO (08:44)
[2017-08-01] MEDS ORDERED: SUCR1TAB36 PO (08:44)
[2017-08-01] MEDS ORDERED: LEVO500T80 PO (08:44)
[2017-08-01] MEDS ORDERED: BACL10TA PO (08:44)
[2017-08-01] MEDS ORDERED: ALBU18HF2 INH (08:44)
[2017-08-01] MEDS ORDERED: PRD20T PO (08:44)
[2017-08-01] MEDS ORDERED: BUDE10.2 INH (09:05)
--- NOTE | 2017-08-01 09:39 | Physical Therapy Evaluation ---
PT Evaluation-General Medical Diagnosis Admission Date July 31, 2017 at 16:19 Medical Diagnosis: T12 anterior wedge fracture Onset Date: July 31, 2017 Therapy Diagnosis Therapy Diagnosis: generalized weakness/debility Height/Weight Height (Feet): 5 Height (Inches): 6.00 Weight (Pounds): 175 Weight (Ounces): 5.0 Precautions Precautions/Isolations: Fall Prevention, Standard Precautions Weight Bear Status Right Lower Extremity: Right Full Weight Bearing Left Lower Extremity: Left Full Weight Bearing Referral Physician: Ivonne Reason for Referral: Evaluation/Treatment Medical History Pertinent Medical History: Arthritis, CAD, COPD (O2 dependent), CVA, HTN, PVD, Smoking Current History EMS secondary to fall at home with 07/10 caregivers Reviewed History: Yes Social History Home: Single Level Current Living Status: Entry Into Home: Ramp Prior/Core FIM Prior Level of Function Functional [place] Measure 0=Not Assessed/NA 4=Minimal Assistance 1=Total Assistance 5=Supervision or Setup 2=Maximal Assistance 6=Modified [place] 3=Moderate Assistance 7=Complete [place] Bed Mobility: 3 Transfers (B,C,W/C) (FIM): 3 PT Evaluation-Current Subjective Patient states, "I may yell." Pain Numeric Pain Scale: 7 Location: Lower Location Body Site: Back Pain Description: Acute Objective Patient Orientation: Person, Time, Situation Problem Solving: Fair Attachments: Oxygen ROM/Strength ROM Lower Extremities right LE WFL; left functional with noted extension tone Strength Lower Extremities right LE 3+/5 grossly left LE 3-/5 grossly Integumentary/Posture Integumentary refer to nursing notes Bowel Incontinence: Yes Bladder Incontinence: Yes Posture functional Neuromuscular (Tone, Coordination, Reflexes) diminished coordination due to old CVA with left LE and UE tone and disuse Sensory Vision: Functional Hearing: Functional Sensation Right Lower Extremit: Impaired Sensation Left Lower Extremity: Impaired Transfers Functional [place] Measure 0=Not Assessed/NA 4=Minimal Assistance 1=Total Assistance 5=Supervision or Setup 2=Maximal Assistance 6=Modified [place] 3=Moderate Assistance 7=Complete [place] Transfers (B, C, W/C) (FIM): 2 Scootin Rollin Supine to/from Sit: 2 Sit to/from Stand: [address] when OOB Gait Mode of Locomotion: Both (short distances ambulation) Anticipated Mode of Locomotion: Both Balance Sitting Static: Fair Sitting Dynamic: Fair Standing Static: Poor Standing Dynamic: Poor Assessment/Needs 72 y.o. female, will benefit from short term skilled PT to address functional strength and mobility to improve current LOF and to return to home or care facility at maximum LOF with 24/7 caregivers as prior. 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 Intermediate Goals Time Frame: Aug 15, 2017 Transfers (B,C,W/C) (FIM): 3 Gait (FIM): 1 Gait distance (FIM): 1=up to 49 ft Distance: 10' Gait Level of Assist: 3 Gait Assistive Device: Walker Darrel PT Plan Problem List Problem List: Activity Tolerance, Functional Strength, Safety, Balance, Gait, Transfer, Bed Mobility Treatment/Plan Treatment Plan: Continue Plan of Care Treatment Plan: Bed Mobility, Education, Functional Activity Mariano, Functional Strength, Gait, Safety, Therapeutic Exercise, Transfers Treatment Duration: Aug 15, 2017 Frequency: 6 times per week Estimated Hrs Per Day: .5 hour per day Patient and/or Family Agrees t: Yes Discharge Recommendations Therapy D/C Recommendations: Usp Placement, Nursing Home (TCU/NH) Time/GCodes Time In: 851 Time Out: 903 Total Billed Treatment Time: 12 Total Billed Treatment 1 visit EVModC 12 min G Codes Necessary: JOHN Johnson PT August 01, 2017 09:39
--- NOTE | 2017-08-01 09:43 | Consultation ---
History of Present Illness History of Present Illness Patient Consulted On(catherine/time) 08/01/17 08:30 Date Seen by Provider: August 01, 2017 Time Seen by Provider: 08:30 History of Present Illness Consult requested by Skip Lindo for fall. Patient is a 72 female who was sitting and when to get up lost her balance and landed on her bottom fell backwards and struck head. Pain moderate to severe in the lower back. She had no loss of consciousness. Patient with history of stroke with left-sided weakness. Patient states currently her pain is under control. She doesn't want to move though due to the pain. She denies any nausea vomiting fever sweats chills shortness of breath or chest pain. She had ct scan of the head and C-spine with no acute injuries. She had a CT lumbar spine performed demonstrating it to 12 wedge compression fracture, no significant retropulsed fragment. There is a grade 1 anterolisthesis of L4 on L5 due to degenerative changes and multi-lumbar spine degenerative changes and a distal abdominal aortic aneurysm. Patient with significant COPD and history of stroke was admitted to medicine for pain control and physical therapy. Allergies and Home Medications Allergies Coded Allergies: Penicillins (Verified Allergy, Unknown, PT HAS RECEIVED ANCEF WITHOUT ISSUE, 05/30/14) meperidine (Verified Allergy, Unknown, 05/30/14) Home Medications Acetaminophen 500 Mg Tablet, 1,000 MG PO Q6H PRN for PAIN-MILD, (Reported) TAKES 2 (500MG) TABLETS Albuterol Sulfate 18 Gm Hfa.aer.ad, 2 PUFF INH Q6H PRN for SHORTNESS OF BREATH, (Reported) Amitriptyline HCl 25 Mg Tablet, 25 MG PO HS, (Reported) Atorvastatin Calcium 10 Mg Tablet, 10 MG PO HS, (Reported) Baclofen 10 Mg Tablet, 10 MG PO BID PRN for SPASMS, (Reported) Budesonide/Formoterol Fumarate 10.2 Gm Hfa.aer.ad, 2 PUFF INH BID, (Reported) Buspirone HCl 5 Mg Tablet, 2.5 MG PO BID, (Reported) TAKES 1/2 (5MG) TABLET Divalproex Sodium 250 Mg Tablet.dr, 250 MG PO HS, (Reported) Docusate Sodium 100 Mg Capsule, 100 MG PO DAILY, (Reported) Fluticasone Propionate 16 Gm [place].susp, 1 SPRAY NS BID, (Reported) Furosemide 40 Mg Tablet, 40 MG PO 1200 PRN for SWELLING, (Reported) Furosemide 40 Mg Tablet, 80 MG PO DAILY, (Reported) TAKES 2 (40MG) TABLETS Ipratropium/Albuterol Sulfate 3 Ml Ampul.neb, 3 ML IH QID PRN for SHORTNESS OF BREATH, (Reported) Latanoprost 2.5 Ml Drops, 1 DROP OU HS, (Reported) Levofloxacin 500 Mg Tablet, 500 MG PO DAILY, (Reported) FILLED #7 15-18 Losartan Potassium 50 Mg Tablet, 50 MG PO DAILY, (Reported) Magnesium Hydroxide 400 Mg/5 Ml Oral.susp, 30 ML PO DAILY PRN for CONSTIPATION- 7TH LINE, (Reported) Nebivolol HCl 10 Mg Tab, 10 MG PO DAILY, (Reported) Ondansetron HCl 4 Mg Tablet, 4 MG PO Q8H PRN for NAUSEA/VOMITING-1ST LINE, ( Reported) Pantoprazole Sodium 40 Mg Tablet.dr, 40 MG PO BID, (Reported) Polyethylene Glycol 3350 255 Gm Powder, 17 GM PO DAILY PRN for CONSTIPATION-2ND LINE, (Reported) Potassium Chloride 10 Meq Tablet.er, 20 MEQ PO BID, (Reported) TAKES 2 (10MEQ) TABLETS Prednisone 20 Mg Tab, 20 MG PO UD, (Reported) 3X DAILY X3 DAYS, 2X DAILY X3 DAYS, THEN 1X DAILY X3 DAYS FILLED #18 07-29-18 Sertraline HCl 100 Mg Tablet, 200 MG PO DAILY, (Reported) TAKES 2 (100MG) TABLETS Spironolactone 25 Mg Tablet, 25 MG PO DAILY, (Reported) Sucralfate 1 Gm Tablet, 1 GM PO ACHS PRN for STOMACH UPSET, (Reported) Patient Home Medication List Home Medication List Reviewed: Yes Past Frqbnkc-Hdnlqg-Qsaipw Hx Patient Social History Alcohol Use: Denies Use Recreational Drug Use: No Smoking Status: Heavy Tobacco Smoker Type Used: Cigarettes 2nd Hand Smoke Exposure: Yes Recent Foreign Travel: No Contact w/Someone Who Travel: No Recent Infectious Disease Expo: No Recent Hopitalizations: No Physical Abuse Screen: No Sexual Abuse: No Immunizations Up To Date Tetanus Booster (TDap): Unknown Date of Pneumonia Vaccine: Dec 15, 2013 Date of Influenza Vaccine: Dec 12, 2016 Seasonal Allergies Seasonal Allergies: No Surgeries History of Surgeries: Yes Surgeries: Abdominal, Breast, Gallbladder, Hysterectomy, Orthopedic, Rectal, Tonsillectomy, Vascular Surgery Respiratory History of Respiratory Disorde: Yes (COPD--O2 AT 3L/NC CONTINUOUSLY) Respiratory Disorders: COPD Cardiovascular History of Cardiac Disorders: Yes (CAROTID DISEASE; PERIPHERAL VASCULAR DISEASE --STENTS IN LEG, PER PT; CHF) Cardiac Disorders: Coronary Artery Disease, High Cholesterol, Hypertension, Peripheral Vascular Neurological History of Neurological Disord: Yes (LEFT SIDE WEAKNESS--LAST TIA 01/2016) Neurological Disorders: Seizure Disorder, Stroke, TIA 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 System Hx 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 Disorders: No Sexually Transmitted Disease: No HIV/AIDS: No Female 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, 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 Genitourinary History of Genitourinary Disor: No Gastrointestinal History of Gastrointestinal Di: Yes (ESPHAGEAL STRICTURE) Gastrointestinal Disorders: Abdominal Hernia, Gastroesophageal Reflux, Chronic Constipation, Hemorrhoids, Polyps, Hiatal Hernia Musculoskeletal History of Musculoskeletal Dis: Yes (CHRONIC GENERALIZED PAIN , FX RIGHT HIP ; LEFT HIP FX 05/2016) Musculoskeletal Disorders: Arthritis, Fibromyalgia, Chronic Back Pain, Fractures Endocrine History of Endocrine Disorders: No HEENT History of HEENT Disorders: Yes HEENT Disorders: Glaucoma Hearing Impairment: Denies Cancer History of Cancer: Yes Cancer: Breast Psychosocial History of Psychiatric Problem: Yes ("SEVERE ANXIETY" PER PT) Behavioral Health Disorders: Anxiety Integumentary History of Skin or Integumenta: No Skin/Integumentary Disorders: Recent Skin Changes Blood Transfusions History of Blood Disorders: Yes (ANEMIA) Adverse Reaction to a Blood Tr: No Family Medical History Significant Family History: Cancer, Diabetes Family Medial History: Alcoholism 19 MOTHER, Onset:20's - 25 Aphasia 19 MOTHER, Onset:40's - 50 Asthma 19 FATHER, Onset:Unknown Congenital disease Son, Onset:Pre- Diabetes mellitus G8 SISTER, Onset:60 years & older FH: ovarian cancer G8 SISTER, Onset:Unknown FHx: stomach cancer 19 MOTHER, Onset:60 years & older Glaucoma Grandaughter, Onset:Unknown Hypertension 19 MOTHER, Onset:Unknown Infertility G8 SISTER, Onset:Pre- Tuberculosis G8 SISTER, Onset:30's - 40 No Family History of: AIDS Abdominal aortic aneurysm [place]'s disease Alzheimer's disease Cancer of mouth Cardiovascular disease Cataracts Colon cancer Completed stroke Congenital heart disease Coronary thrombosis Cystic fibrosis Deafness or hearing loss Dementia Drug abuse Dysphasia Fibrocystic disease of breast Gastroenteritis Gout Headache disorder Hypercholesterolemia Kidney disease Myocardial infarction Neoplasm Not obtainable due to adoption Osteoporosis Parkinson's disease Prostate cancer Psychosocial problem Respiratory disorder Seizure disorder Severe allergy Thyroid disease Visual disorder Review of Systems-General Constitutional: no symptoms reported EENTM: no symptoms reported Respiratory: no symptoms reported Cardiovascular: no symptoms reported Genitourinary: no symptoms reported Musculoskeletal: see HPI, back pain Skin: no symptoms reported Psychiatric/Neurological: No Symptoms Reported, See HPI, Pre-Existing Deficit Physical Exam-General Problems Physical Exam Vital Signs Vital Signs - First Documented 07/31/17 07/31/17 15:03 16:14 Temp 98.1 Pulse 70 Resp 16 B/P (MAP) 134/56 (82) Pulse Ox 98 O2 Delivery Room Air O2 Flow Rate 3.00 Capillary Refill : Less Than 3 Seconds General Appearance: no apparent distress HEENT: PERRL/EOMI, normal ENT inspection Neck: non-tender, full range of motion, supple, normal inspection Respiratory: chest non-tender, no respiratory distress, no accessory muscle use Cardiovascular: regular rate, rhythm Gastrointestinal: non tender, soft, no organomegaly, no pulsatile mass Rectal: deferred Back: vertebral tenderness (Lumbar spine) Extremities: non-tender, normal inspection Neurologic/Psychiatric: alert, normal mood/affect, oriented x 3, other (Left upper extremity and left lower extremity weakness) Data Review Labs Laboratory Tests 07/31/17 15:20: White Blood Count 9.5, Red Blood Count 3.64L, Hemoglobin 10.3L, Hematocrit 33L, Mean Corpuscular Volume 90, Mean Corpuscular Hemoglobin 28, Mean Corpuscular Hemoglobin Concent 31L, Red Cell Distribution Width 19.2H, Platelet Count 257, Mean Platelet Volume 9.4, Neutrophils (%) (Auto) 73, Lymphocytes (%) (Auto) 16, Monocytes (%) (Auto) 10, Eosinophils (%) (Auto) 1, Basophils (%) (Auto) 0, Neutrophils # (Auto) 6.9, Lymphocytes # (Auto) 1.5, Monocytes # (Auto) 0.9, Eosinophils # (Auto) 0.1, Basophils # (Auto) 0.0, Sodium Level 142, Potassium Level 3.7, Chloride Level 105, Carbon Dioxide Level 24, Anion Gap 13, Blood Urea Nitrogen 24H, Creatinine 1.27, Estimat Glomerular Filtration Rate 41, BUN/ Creatinine Ratio 19, Glucose Level 100, Calcium Level 9.7, Total Bilirubin 0.3, Aspartate Amino Transf (AST/SGOT) 18, Alanine Aminotransferase (ALT/SGPT) 11, Alkaline Phosphatase 69, Total Protein 6.9, Albumin 4.0 Assessment/Plan Assessment/Plan Assessment/Plan Patient is a 72-year-old female with fall, T12 lumbar anterior fracture wedge, severe pain, history of stroke with left-sided weakness, COPD. Patient admitted for pain control and physical therapy evaluation. No other injuries identified. Patient to work with physical therapy. We'll sign off at this time and if any issues please call Clinical Quality Measures DVT/VTE Risk/Contraindication: Risk Factor Score Per Nursin RFS Level Per Nursing on Admit: 4+=Very High OFE CRESPO DO August 01, 2017 09:43
[2017-08-01] MEDS ORDERED: RT-ALBUTEROL/IPRATROPIUM 3 ML (DUONEB) VIAL IH PRN (10:30)
[2017-08-01] MEDS ORDERED: fentaNYL INJECTION 100 MCG/2 ML AMP IV PRN (10:30)
--- NOTE | 2017-08-01 10:31 | History & Physicial ---
History of Present Illness History of Present Illness Reason for visit/HPI This is a 72 year old female with a history of previous stroke with left sided hemiplegia. She sustained a fall at home with no loss of consciousness but was experiencing severe low back pain so she was brought to the emergency room for evaluation. She was found to have an acute T12 compression fracture. Due to difficulty controlling her pain, it was decided to admit her for pain control and PT. Date of Admission July 31, 2017 at 16:19 Date Seen by Provider: August 01, 2017 Time Seen by Provider: 10:25 I consulted on this patient on 08/01/17 10:25 Attending Physician Betsy Coronado DO Admitting Physician Betsy Coronado DO Consult Allergies and Home Medications Allergies Coded Allergies: Penicillins (Verified Allergy, Unknown, PT HAS RECEIVED ANCEF WITHOUT ISSUE, 05/30/14) meperidine (Verified Allergy, Unknown, 05/30/14) Home Medications Acetaminophen 500 Mg Tablet, 1,000 MG PO Q6H PRN for PAIN-MILD, (Reported) TAKES 2 (500MG) TABLETS Albuterol Sulfate 18 Gm Hfa.aer.ad, 2 PUFF INH Q6H PRN for SHORTNESS OF BREATH, (Reported) Amitriptyline HCl 25 Mg Tablet, 25 MG PO HS, (Reported) Atorvastatin Calcium 10 Mg Tablet, 10 MG PO HS, (Reported) Baclofen 10 Mg Tablet, 10 MG PO BID PRN for SPASMS, (Reported) Budesonide/Formoterol Fumarate 10.2 Gm Hfa.aer.ad, 2 PUFF INH BID, (Reported) Buspirone HCl 5 Mg Tablet, 2.5 MG PO BID, (Reported) TAKES 1/2 (5MG) TABLET Divalproex Sodium 250 Mg Tablet.dr, 250 MG PO HS, (Reported) Docusate Sodium 100 Mg Capsule, 100 MG PO DAILY, (Reported) Fluticasone Propionate 16 Gm [place].susp, 1 SPRAY NS BID, (Reported) Furosemide 40 Mg Tablet, 40 MG PO 1200 PRN for SWELLING, (Reported) Furosemide 40 Mg Tablet, 80 MG PO DAILY, (Reported) TAKES 2 (40MG) TABLETS Ipratropium/Albuterol Sulfate 3 Ml Ampul.neb, 3 ML IH QID PRN for SHORTNESS OF BREATH, (Reported) Latanoprost 2.5 Ml Drops, 1 DROP OU HS, (Reported) Levofloxacin 500 Mg Tablet, 500 MG PO DAILY, (Reported) FILLED #7 15-18 Losartan Potassium 50 Mg Tablet, 50 MG PO DAILY, (Reported) Magnesium Hydroxide 400 Mg/5 Ml Oral.susp, 30 ML PO DAILY PRN for CONSTIPATION- 7TH LINE, (Reported) Nebivolol HCl 10 Mg Tab, 10 MG PO DAILY, (Reported) Ondansetron HCl 4 Mg Tablet, 4 MG PO Q8H PRN for NAUSEA/VOMITING-1ST LINE, ( Reported) Pantoprazole Sodium 40 Mg Tablet.dr, 40 MG PO BID, (Reported) Polyethylene Glycol 3350 255 Gm Powder, 17 GM PO DAILY PRN for CONSTIPATION-2ND LINE, (Reported) Potassium Chloride 10 Meq Tablet.er, 20 MEQ PO BID, (Reported) TAKES 2 (10MEQ) TABLETS Prednisone 20 Mg Tab, 20 MG PO UD, (Reported) 3X DAILY X3 DAYS, 2X DAILY X3 DAYS, THEN 1X DAILY X3 DAYS FILLED #18 07-29-18 Sertraline HCl 100 Mg Tablet, 200 MG PO DAILY, (Reported) TAKES 2 (100MG) TABLETS Spironolactone 25 Mg Tablet, 25 MG PO DAILY, (Reported) Sucralfate 1 Gm Tablet, 1 GM PO ACHS PRN for STOMACH UPSET, (Reported) Patient Home Medication List Home Medication List Reviewed: Yes Past Vzllbsr-Dgdisz-Ujnnxl Hx Patient Social History Alcohol Use: Denies Use Recreational Drug Use: No Smoking Status: Heavy Tobacco Smoker Type Used: Cigarettes 2nd Hand Smoke Exposure: Yes Physical Abuse Screen: No Sexual Abuse: No Recent Foreign Travel: No Contact w/other who traveled: No Recent Hopitalizations: No Recent Infectious Disease Expo: No Immunizations Up To Date Tetanus Booster (TDap): Unknown Date of Pneumonia Vaccine: Dec 15, 2013 Date of Influenza Vaccine: Dec 12, 2016 Seasonal Allergies Seasonal Allergies: No Surgeries Yes Abdominal, Breast, Gallbladder, Hysterectomy, Orthopedic, Rectal, Tonsillectomy , Vascular Surgery Respiratory Yes (COPD--O2 AT 3L/NC CONTINUOUSLY) COPD, Sleep Apnea Currently Using CPAP: No Currently Using BIPAP: No Cardiovascular Yes (CAROTID DISEASE; PERIPHERAL VASCULAR DISEASE--STENTS IN LEG, PER PT; CHF) Coronary Artery Disease, High Cholesterol, Hypertension, Peripheral Vascular Neurological Yes (LEFT SIDE WEAKNESS--LAST TIA 01/2016) Seizure Disorder, Stroke, TIA 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 System Hx 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 Disorders: No Sexually Transmitted Disease: No HIV/AIDS: No Female 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 Disorders: 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, 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 Genitourinary No Gastrointestinal Yes (ESPHAGEAL STRICTURE) Abdominal Hernia, Gastroesophageal Reflux, Chronic Constipation, Hemorrhoids, Polyps, Hiatal Hernia Musculoskeletal Yes (CHRONIC GENERALIZED PAIN , FX RIGHT HIP 09/09/15; LEFT HIP FX 05/2016) Arthritis, Fibromyalgia, Chronic Back Pain, Fractures Endocrine History of Endocrine Disorders: No HEENT History of HEENT Disorders: Yes HEENT Disorders: Glaucoma Hearing Impairment: Denies Cancer Yes Breast Did You Recieve Any Treatments: Yes Type of Treatment: Surgical Intervention Psychosocial History of Psychiatric Problem: Yes ("SEVERE ANXIETY" PER PT) Behavioral Health Disorders: Anxiety Integumentary History of Skin or Integumenta: No Skin/Integumentary Disorders: Recent Skin Changes Blood Transfusions History of Blood Disorders: Yes (ANEMIA) Adverse Reaction to a Blood Tr: No Family Medical History Significant Family History: Cancer, Diabetes Family Hx: Alcoholism 19 MOTHER, Onset:20's - 25 Aphasia 19 MOTHER, Onset:40's - 50 Asthma 19 FATHER, Onset:Unknown Congenital disease Son, Onset:Pre- Diabetes mellitus G8 SISTER, Onset:60 years & older FH: ovarian cancer G8 SISTER, Onset:Unknown FHx: stomach cancer 19 MOTHER, Onset:60 years & older Glaucoma Grandaughter, Onset:Unknown Hypertension 19 MOTHER, Onset:Unknown Infertility G8 SISTER, Onset:Pre- Tuberculosis G8 SISTER, Onset:30's - 40 No Family History of: AIDS Abdominal aortic aneurysm [place]'s disease Alzheimer's disease Cancer of mouth Cardiovascular disease Cataracts Colon cancer Completed stroke Congenital heart disease Coronary thrombosis Cystic fibrosis Deafness or hearing loss Dementia Drug abuse Dysphasia Fibrocystic disease of breast Gastroenteritis Gout Headache disorder Hypercholesterolemia Kidney disease Myocardial infarction Neoplasm Not obtainable due to adoption Osteoporosis Parkinson's disease Prostate cancer Psychosocial problem Respiratory disorder Seizure disorder Severe allergy Thyroid disease Visual disorder Constitutional: weakness EENTM: No see HPI, No no symptoms reported, No ear discharge, No hearing loss, No ear pain, No blurred vision, No double vision, No eye pain, No tearing, No vision loss, No dental problems, No hoarseness, No mouth pain, No mouth swelling , No epistaxis, No nose congestion, No nose pain, No throat pain, No throat swelling, No other Respiratory: dyspnea on exertion Cardiovascular: No no symptoms reported, No see HPI, No chest pain, No edema, No Hx of Intervention, No palpitations, No syncope, No vascular heart diseas, No other Gastrointestinal: No RUQ, No LUQ, No RLQ, No LLQ, No no symptoms reported, No see HPI, No abdominal pain, No constipation, No diarrhea, No dysphagia, No hematemesis, No heartburn, No jaundice, No loss of appetite, No melena, No nausea, No vomiting, No other Genitourinary: incontinence (stress) Musculoskeletal: back pain, muscle twitching, muscle weakness Skin: No no symptoms reported, No see HPI, No change in color, No change in hair/nails, No dryness, No hx of skin cancer, No lesions, No lumps, No pruritus , No rash, No other Psychiatric/Neurological: Depressed, Paresthesia, Pre-Existing Deficit, Weakness Physical Exam Vital Signs Vital Signs - First Documented 07/31/17 07/31/17 15:03 16:14 Temp 98.1 Pulse 70 Resp 16 B/P (MAP) 134/56 (82) Pulse Ox 98 O2 Delivery Room Air O2 Flow Rate 3.00 Capillary Refill : Less Than 3 Seconds General Appearance: No Apparent Distress (appears too lethargic which is likely from pain meds) HEENT: Pharynx Normal Neck: Supple Respiratory: Lungs Clear, Decreased Breath Sounds Cardiovascular: Regular Rate, Rhythm, Systolic Murmur Gastrointestinal: Normal Bowel Sounds, Non Tender, Soft Rectal: Deferred Back: No CVA Tenderness, Decreased Range of Motion, Vertebral Tenderness Extremity: Non Tender, No Calf Tenderness, No Pedal Edema Neurologic/Psychiatric: Alert, Motor Weakness Skin: Warm/Dry Comments labLaboratory Tests 07/31/17 15:20: White Blood Count 9.5, Red Blood Count 3.64L, Hemoglobin 10.3L, Hematocrit 33L, Mean Corpuscular Volume 90, Mean Corpuscular Hemoglobin 28, Mean Corpuscular Hemoglobin Concent 31L, Red Cell Distribution Width 19.2H, Platelet Count 257, Mean Platelet Volume 9.4, Neutrophils (%) (Auto) 73, Lymphocytes (%) (Auto) 16, Monocytes (%) (Auto) 10, Eosinophils (%) (Auto) 1, Basophils (%) (Auto) 0, Neutrophils # (Auto) 6.9, Lymphocytes # (Auto) 1.5, Monocytes # (Auto) 0.9, Eosinophils # (Auto) 0.1, Basophils # (Auto) 0.0, Sodium Level 142, Potassium Level 3.7, Chloride Level 105, Carbon Dioxide Level 24, Anion Gap 13, Blood Urea Nitrogen 24H, Creatinine 1.27, Estimat Glomerular Filtration Rate 41, BUN/ Creatinine Ratio 19, Glucose Level 100, Calcium Level 9.7, Total Bilirubin 0.3, Aspartate Amino Transf (AST/SGOT) 18, Alanine Aminotransferase (ALT/SGPT) 11, Alkaline Phosphatase 69, Total Protein 6.9, Albumin 4.0 Assessment/Plan Assessment and Plan 1. Acute T12 Compression Fracture with uncontrollable pain--admit for pain control with IV morphine, calcitonin nasal spray, oxycodone, toradol 2. COPD with Hypercapnea--start SVNS and oxygen, may need BIPAP if worsening, will try to decrease pain medications so don't decrease respiratory drive 3. Hypertension--resume home meds 4. GERD--resume protonix 5. Chronic Anemia--monitor H/H 6. Hx of CVA with left sided hemiplegia--start PT once pain better controlled Admission Diagnosis Admission Status: Inpatient Order (span 2 midnights) Reason for Inpatient Admission: Will need IV pain control and therapy and possibly rehab Clinical Quality Measures DVT/VTE Risk/Contraindication: Risk Factor Score Per Nursin RFS Level Per Nursing on Admit: 4+=Very High BETSY CORONADO DO August 01, 2017 10:30
[2017-08-01] MEDS ORDERED: MILK OF MAGNESIA 400 MG/5 ML 30 ML UDC PO NR (11:00)
[2017-08-01] MEDS ORDERED: PANTOPRAZOLE 40 MG (PROTONIX) TAB PO NR (11:13)
[2017-08-01] MEDS ORDERED: SENNA W/DOCUSATE (SENOKOT S) TABLET PO NR (11:14)
[2017-08-01] MEDS: NS IV 1000 ML 1,000 ML IV SCH (11:24)
[2017-08-01] MEDS: NEBIVOLOL 5 MG TAB (BYSTOLIC) PO SCH (11:24)
[2017-08-01] MEDS ORDERED: ONDANSETRON 4 MG (ZOFRAN) ORAL DISSOLVE TAB PO PRN (11:30)
[2017-08-01 12:00] VITALS: BP 123/64
[2017-08-01] MEDS ORDERED: BACLOFEN 10 MG (LIORESAL) TAB PO SCH (13:00)
[2017-08-01] MEDS: BACLOFEN 10 MG (LIORESAL) TAB PO SCH ×2 (13:33→20:32)
[2017-08-01 15:35] VITALS: BP 123/58
--- NOTE | 2017-08-01 16:17 | Occupational Therapy Eval ---
OT Evaluation-General/PLF Medical Diagnosis Admission Date July 31, 2017 at 16:19 Medical Diagnosis: T12 anterior wedge fracture Onset Date: July 31, 2017 Therapy Diagnosis Therapy Diagnosis: decr self care, decr funct mob, decr pain jose, weakness decr funct use L UE Height/Weight Height (Feet): 5 Height (Inches): 6.00 Weight (Pounds): 175 Weight (Ounces): 5.0 Precautions Precautions/Isolations: Fall Prevention, Standard Precautions Safety Interventions: Bed Exit Alarm Referral Physician: Ivonne Referral Reason: Evaluation/Treatment Referral Comments LSO on when up out of bed Medical History Pertinent Medical History: Arthritis, CAD, COPD (O2 dependent), CVA (L sided weakness, 3 years ago), GERD, HTN, PVD, Smoking Additional Medical History Carotid disease. PVD - stents in leg. CHF. Seizure disorder. Esophageal stricture. R hip fx 08/30, L hip fx 05/31. Fibromyalgia. Chronic back pain. Anxiety Current History Fell at home and has T-12 compression fx. COPD Reviewed History: Yes Social History Home: Single Level Current Living Status: Entry Into Home: Ramp ADL-Prior Level of Function ADL PLOF Comments Pt has 24/7 caregivers in her home. She has help with ADLs and home care. Hx incontinence and wears Depends OT Current Status Subjective Pt seen in room, up in bed, asleep but easily awakened, agreeable to OT. Pt rated pain 10/10 in abdomen and back. Appearance Alert, cooperative Mental Status/Objective Patient Orientation: Person, Place, Situation Attachments: Tran Catheter, IV, Oxygen Current Dentures/Partials: Yes Hand Dominance: Right Upper Extremity ROM R UE WFL grossly. L UE significantly limited due to hemiparesis and tone from old CVA Upper Extremity Strength R UE grossly 3+/5. L UE not tested ADL-Treatment ADL-Current Pt required max assist from PT to get up today and did not walk. She verbalizes that she knows she needs to get up and said that she will try tomorrow. She has been able to feed herslef and get a drink of water but with some difficulty, per her report. She has not been up in recliner. Functional [place] Measure 0=Not Assessed/NA 4=Minimal Assistance 1=Total Assistance 5=Supervision or Setup 2=Maximal Assistance 6=Modified [place] 3=Moderate Assistance 7=Complete IndependenceIRFPAI Quality Coding Scale 6 Independent with activity with or without an assistive device 5 Patient requires set up or clean up by helper. Patient completes activity by themselves 4 Supervision or touching assist (CGA). [place] provide cues , steadying assist 3 The helper provides less than half the effort to complete the activity 2 The helper provides more than half the effort to complete the activity 1 Dependent. 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 2=Patient will verbalize/demonstrate understanding of assistive devices/ modifications for ADL. 3=Patient will improve strength/tolerance for activity to enable patient to perform ADL's. OT Education/Plan Problem List/Assessment Assessment: Decreased UE Strength, Dependent Transfers, Impaired Bed Mobility, Impaired Funct Balance, Impaired Self-Care Skills, Restricted Funct UE ROM (L) Discharge Recommendations Plan/Recommendations: Continue POC Therapy D/C Recommendations: Senior Care (TCU/[facility]) Treatment Plan/Plan of Care Treatment,Training & Education: Yes Patient would benefit from OT for education, treatment and training to promote independence in ADL's, mobility, safety and/or upper extremity function for ADL' s. Plan of Care: ADL Retraining, Functional Mobility, UE Funct Exercise/Act, UE Neuromus Re-Ed/Coord Treatment Duration: Aug 15, 2017 Frequency: 5 times per week Estimated Hrs Per Day: .5 hour per day Agreement: Yes Rehab Potential: Fair Time/GCodes Start Time: 15:50 Stop Time: 16:00 Total Time Billed (hr/min): 10 Billed Treatment Time visit, 10 minutes evaluation moderate intensity SENDY NOBLE OT August 01, 2017 16:17
[2017-08-01] MEDS: RT-ADVAIR HFA 115/21 MCG PER PUFF IH SCH (19:00)
[2017-08-01 19:25] VITALS: BP 115/56
[2017-08-01] MEDS: SENNA W/DOCUSATE (SENOKOT S) TABLET PO SCH (20:32)
[2017-08-01] MEDS: LATANOPROST 0.005% (XALATAN) OPHTH SOLN 2.5 ML OU SCH (20:32)
[2017-08-01] MEDS: AMITRIPTYLINE 25 MG (ELAVIL) TAB PO SCH (20:32)
[2017-08-01] MEDS: DIVALPROEX 250 MG DELAYED RELEASE (DEPAKOTE) TAB PO SCH (20:32)
[2017-08-01] MEDS: KCL 10 MEQ TAB (MICRO K) PO SCH (20:32)
[2017-08-01] MEDS: ATORVASTATIN 10 MG (LIPITOR) TABLET PO SCH (20:32)
[2017-08-02 00:28] VITALS: BP 126/58
[2017-08-02] MEDS: RT-ALBUTEROL/IPRATROPIUM 3 ML (DUONEB) VIAL INH SCH ×4 (02:26→19:04)
[2017-08-02] MEDS: KETOROLAC 15 MG/ML VIAL IVP PRN ×2 (03:56→11:35)
[2017-08-02 04:18] VITALS: BP 123/60
[2017-08-02] MEDS: NS IV 1000 ML 1,000 ML IV SCH ×2 (06:18→07:27)
[2017-08-02] MEDS: CATHETER FLUSH 10 ML SYR IV SCH ×6 (06:18→22:00)
[2017-08-02] MEDS: PANTOPRAZOLE 40 MG (PROTONIX) TAB PO SCH (06:22)
[2017-08-02 06:37] LABS: BASOPHILS % (AUTO) 0 % (0-10); EOSINOPHILS # (AUTO) 0.1 10^3/uL (0.0-0.3); EOSINOPHILS % (AUTO) 1 % (0-10); HEMATOCRIT 31 % (35-52); HEMOGLOBIN 9.4 G/DL (11.5-16.0); LYMPHOCYTES # (AUTO) 1.1 X 10^3 (1.0-4.0); LYMPHOCYTES % (AUTO) 18 % (12-44); MEAN CORPUSCULAR HEMOGLOBIN 29 PG (25-34); MEAN CORPUSCULAR HGB CONC 30 G/DL (32-36); MEAN CORPUSCULAR VOLUME 94 FL (80-99); MEAN PLATELET VOLUME 9.4 FL (7.4-10.4); MONOCYTES # (AUTO) 0.8 X 10^3 (0.0-1.0); MONOCYTES % (AUTO) 14 % (0-12); NEUTROPHILS % (AUTO) 67 % (42-75); PLATELET COUNT 215 10^3/uL (130-400); RED CELL DISTRIBUTION WIDTH 19.1 % (10.0-14.5); WHITE BLOOD COUNT 6.1 10^3/uL (4.3-11.0)
[2017-08-02 06:53] LABS: ALBUMIN 3.6 GM/DL (3.2-4.5); BILIRUBIN,TOTAL 0.3 MG/DL (0.1-1.0); CALCIUM 9.2 MG/DL (8.5-10.1); CREATININE SERUM 1.01 MG/DL (0.60-1.30); POTASSIUM 4.1 MMOL/L (3.6-5.0); TOTAL PROTEIN 6.3 GM/DL (6.4-8.2)
[2017-08-02 08:00] VITALS: BP 142/63
[2017-08-02] MEDS: NICOTINE 21 MG (NICODERM) PATCH TD SCH (08:47)
[2017-08-02] MEDS: SENNA W/DOCUSATE (SENOKOT S) TABLET PO SCH ×2 (08:47→21:21)
[2017-08-02] MEDS: SERTRALINE 100 MG (ZOLOFT) TAB PO SCH (08:48)
[2017-08-02] MEDS: KCL 10 MEQ TAB (MICRO K) PO SCH ×2 (08:48→21:22)
[2017-08-02] MEDS: NEBIVOLOL 5 MG TAB (BYSTOLIC) PO SCH (08:48)
[2017-08-02] MEDS: FUROSEMIDE 40 MG (LASIX) TAB PO SCH (08:48)
[2017-08-02] MEDS: SPIRONOLACTONE 25 MG (ALDACTONE) TAB PO SCH (08:48)
[2017-08-02] MEDS: LOSARTAN 50 MG (COZAAR) TAB PO SCH (08:48)
[2017-08-02] MEDS: PHENAZOPYRIDINE 100 MG (PYRIDIUM) TABLET PO SCH ×3 (08:49→17:24)
[2017-08-02] MEDS: BACLOFEN 10 MG (LIORESAL) TAB PO SCH ×3 (08:49→21:22)
[2017-08-02] MEDS: FLUTICASONE NASAL SPRAY (FLONASE) 16 GM BTL NS SCH (08:50)
[2017-08-02] MEDS: CALCITONIN NASAL 200 INTLU/AC (FORTICAL) 3.7 ML BTL SCH (08:51)
[2017-08-02] MEDS: NICOTINE PATCH REMOVAL TP SCH (08:51)
[2017-08-02] MEDS: RT-ADVAIR HFA 115/21 MCG PER PUFF IH SCH ×2 (09:23→19:04)
--- NOTE | 2017-08-02 11:38 | Physical Therapy Daily Note ---
PT Daily Note-Current Subjective Pt laying Supine in bed upon arrival. Pt agrees to Supine Ex despite reporting generalized pain of 10/10. Pain Numeric Pain Scale: 10-Worst Possible Pain Location Body Site: Generalized Pain Description: Ache, Stabbing Mental Status Patient Orientation: Person, Place, Situation Attachments: Oxygen, IV Transfers Functional [place] Measure 0=Not Assessed/NA 4=Minimal Assistance 1=Total Assistance 5=Supervision or Setup 2=Maximal Assistance 6=Modified [place] 3=Moderate Assistance 7=Complete IndependenceIRFPAI Quality Coding Scale 6 Independent with activity with or without an assistive device 5 Patient requires set up or clean up by helper. Patient completes activity by themselves 4 Supervision or touching assist (CGA). [place] provide cues , steadying assist 3 The helper provides less than half the effort to complete the activity 2 The helper provides more than half the effort to complete the activity 1 Dependent. The helper does all the effort to complete an activity 7 Patient refused to complete or attempt activity 9 The patient did not perform the activity before the current illness or injury 88 Not attempted due to Medical conditions or safety concerns Weight Bearing Right Lower Extremity: Right Full Weight Bearing Left Lower Extremity: Left Full Weight Bearing Exercises Supine Ex: Ankle pumps, Quad Set, Glut sets, Straight leg raise, Hip abd/add Supine Reps: 15 Treatments Pt completes Supine Ex in bed at [facility]. Pt takes a couple of rest breaks during EX. Assessment Current Status: Fair Progress Pt moans & facial grimace during EX. PT Delivery And Mail Sorter Goals [facility] Goals PT [facility] Goals Time Frame: Aug 15, 2017 Transfers (B,C,W/C) (FIM): 3 Gait (FIM): 1 Gait distance (FIM): 1=up to 49 ft Distance: 10' Gait Level of Assist: 3 Gait Assistive Device: Walker Darrel PT Plan Problem List Problem List: Activity Tolerance, Functional Strength, Safety, Bed Mobility, ROM Treatment/Plan Treatment Plan: Continue Plan of Care Treatment Plan: Bed Mobility, Education, Functional Activity [place], Functional Strength, Gait, Safety, Therapeutic Exercise, Transfers Treatment Duration: Aug 15, 2017 Frequency: 6 times per week Estimated Hrs Per Day: .5 hour per day Patient and/or Family Agrees t: Yes Safety Risks/Education Patient Education: Correct Positioning, Safety Issues Teaching Recipient: Patient Teaching Methods: Discussion Response to Teaching: Verbalize Understanding Time/GCodes Time In: 1030 Time Out: 1048 Total Billed Treatment Time: 18 Total Billed Treatment 1, EX (18m) G Codes Necessary: JOHNNY Steele SUCCESSFACTORS CONSULTANT August 02, 2017 11:38
[2017-08-02 12:00] VITALS: BP 145/68
--- NOTE | 2017-08-02 12:07 | Progress Note-Hospitalist ---
Subjective HPI/CC On Admission Date Seen by Provider: August 02, 2017 Time Seen by Provider: 10:30 Subjective/Events-last exam Patient complains of having uncontrolled pain. She will let her children come see her because she is afraid they'll hear her moaning. She is in bed and uncomfortable. Vital signs are stable she's afebrile. She's had some nausea and some vomiting as well. Review of Systems Gastrointestinal: Nausea, Vomiting Musculoskeletal: back pain Neurological: Weakness Objective Exam Vital Signs Vital Signs Date Time Temp Pulse Resp B/P (MAP) Pulse Ox O2 Delivery O2 Flow Rate FiO2 08/02/17 10:27 93 Nasal Cannula 3.00 08/02/17 09:35 97.9 08/02/17 08:00 74 18 142/63 (89) Capillary Refill : Less Than 3 Seconds General Appearance: Mild Distress HEENT: PERRL/EOMI, Normal ENT Inspection, Pharynx Normal Neck: Limited Range of Motion Respiratory: Lungs Clear Cardiovascular: Regular Rate, Rhythm, No Gallop, Normal Peripheral Pulses Gastrointestinal: Normal Bowel Sounds, Non Tender, Soft Extremity: No Pedal Edema Results/Procedures Lab Laboratory Tests 08/02/17 06:20 Patient resulted labs reviewed. Assessment/Plan Assessment and Plan Assess & Plan/Chief Complaint 1. Acute T12 anterior compression fracture 2. 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 3. Nausea with vomiting possibly secondary to narcotics versus the pain. 4. Anemia. 5. History of previous CVA. We'll begin scheduled ibuprofen and oral narcotic medication holding if somnolent. Narcan is available for any acute respiratory failure. Clinical Quality Measures DVT/VTE Risk/Contraindication: Risk Factor Score Per Nursin RFS Level Per Nursing on Admit: 4+=Very High RONAL DORSEY MD August 02, 2017 12:07
[2017-08-02] MEDS: IBUPROFEN 600 MG (MOTRIN) TAB PO SCH ×2 (12:26→17:26)
[2017-08-02 15:38] VITALS: BP 115/54
[2017-08-02] MEDS: oxyCODONE/APAP 10/325MG (PERCOCET 10) TABLET PO SCH ×2 (17:26→21:21)
[2017-08-02 19:21] VITALS: BP 109/52
[2017-08-02] MEDS: DIVALPROEX 250 MG DELAYED RELEASE (DEPAKOTE) TAB PO SCH (21:22)
[2017-08-02] MEDS: LATANOPROST 0.005% (XALATAN) OPHTH SOLN 2.5 ML OU SCH (21:22)
[2017-08-02] MEDS: AMITRIPTYLINE 25 MG (ELAVIL) TAB PO SCH (21:22)
[2017-08-02] MEDS: ATORVASTATIN 10 MG (LIPITOR) TABLET PO SCH (21:22)
[2017-08-03 00:53] VITALS: BP 106/53
[2017-08-03] MEDS: oxyCODONE/APAP 10/325MG (PERCOCET 10) TABLET PO SCH ×3 (01:09→12:06)
[2017-08-03] MEDS: IBUPROFEN 600 MG (MOTRIN) TAB PO SCH ×4 (01:10→16:34)
[2017-08-03] MEDS: RT-ALBUTEROL/IPRATROPIUM 3 ML (DUONEB) VIAL INH SCH ×4 (01:59→20:00)
[2017-08-03] MEDS: NS IV 1000 ML 1,000 ML IV SCH (03:49)
[2017-08-03 04:38] VITALS: BP 106/51
[2017-08-03] MEDS: CATHETER FLUSH 10 ML SYR IV SCH ×6 (06:00→22:00)
[2017-08-03] MEDS: PANTOPRAZOLE 40 MG (PROTONIX) TAB PO SCH (06:51)
[2017-08-03 07:52] VITALS: BP 115/62
[2017-08-03] MEDS: PHENAZOPYRIDINE 100 MG (PYRIDIUM) TABLET PO SCH ×4 (07:59→16:35)
[2017-08-03] MEDS: NICOTINE PATCH REMOVAL TP SCH (07:59)
[2017-08-03] MEDS: FLUTICASONE NASAL SPRAY (FLONASE) 16 GM BTL NS SCH (08:00)
[2017-08-03] MEDS: SERTRALINE 100 MG (ZOLOFT) TAB PO SCH ×2 (08:01→12:05)
[2017-08-03] MEDS: FUROSEMIDE 40 MG (LASIX) TAB PO SCH ×2 (08:01→12:04)
[2017-08-03] MEDS: LOSARTAN 50 MG (COZAAR) TAB PO SCH ×2 (08:01→10:15)
[2017-08-03] MEDS: CALCITONIN NASAL 200 INTLU/AC (FORTICAL) 3.7 ML BTL SCH (08:01)
[2017-08-03] MEDS: KCL 10 MEQ TAB (MICRO K) PO SCH ×3 (08:02→21:50)
[2017-08-03] MEDS: NEBIVOLOL 5 MG TAB (BYSTOLIC) PO SCH ×2 (08:02→10:15)
[2017-08-03] MEDS: SENNA W/DOCUSATE (SENOKOT S) TABLET PO SCH ×3 (08:02→21:50)
[2017-08-03] MEDS: BACLOFEN 10 MG (LIORESAL) TAB PO SCH ×4 (08:03→21:50)
[2017-08-03] MEDS: NICOTINE 21 MG (NICODERM) PATCH TD SCH (08:03)
[2017-08-03] MEDS: SPIRONOLACTONE 25 MG (ALDACTONE) TAB PO SCH ×2 (08:03→10:14)
[2017-08-03] MEDS: RT-ADVAIR HFA 115/21 MCG PER PUFF IH SCH ×2 (09:14→20:00)
--- NOTE | 2017-08-03 12:23 | Progress Note-Hospitalist ---
Subjective HPI/CC On Admission Date Seen by Provider: August 03, 2017 Time Seen by Provider: 11:45 Subjective/Events-last exam Mrs. Amador pain is much better today. She is up in bed eating. Patient was some what somnolent this morning and but was easy to arouse and as such her Percocet dose will be creased from 10 mg to 7.5 on a scheduled basis. Fentanyl and Toradol will be discontinued. Oxygen saturation on 2 L 96 percent. She is awake and alert and having no other complaints. Objective Exam Vital Signs Vital Signs Date Time Temp Pulse Resp B/P (MAP) Pulse Ox O2 Delivery O2 Flow Rate FiO2 08/03/17 09:16 95 Nasal Cannula 3.00 08/03/17 07:52 96.3 60 18 115/62 (79) Capillary Refill : Less Than 3 Seconds General Appearance: No Apparent Distress, Chronically ill Neck: Non Tender, Supple Respiratory: Chest Non Tender, Lungs Clear, Normal Breath Sounds, No Accessory Muscle Use, No Respiratory Distress Cardiovascular: Regular Rate, Rhythm, No Gallop, No Murmur Gastrointestinal: Normal Bowel Sounds, No Organomegaly, Non Tender, Soft Rectal: Deferred Back: Normal Inspection Extremity: Non Tender, No Pedal Edema Neurologic/Psychiatric: Alert, Oriented x3, No Motor/Sensory Deficits, Normal Mood/Affect Skin: Normal Color, Warm/Dry Results/Procedures Lab Patient resulted labs reviewed. Assessment/Plan Assessment and Plan Assess & Plan/Chief Complaint 1. Acute T12 anterior compression fracture-improved pain control 2. 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 Nausea with vomiting possibly secondary to narcotics versus the pain- improved 4. Anemia. 5. History of previous CVA. 6. DVT prophylaxis with Lovenox and compression hose We'll begin scheduled ibuprofen and oral narcotic medication holding if somnolent. Narcan is available for any acute respiratory failure. Clinical Quality Measures DVT/VTE Risk/Contraindication: Risk Factor Score Per Nursin RFS Level Per Nursing on Admit: 4+=Very High RONAL DORSEY MD August 03, 2017 12:23
[2017-08-03 12:32] VITALS: BP 118/70
[2017-08-03] MEDS: oxyCODONE/APAP 7.5-325 MG (PERCOCET 7.5) TABLET PO SCH ×2 (12:37→16:34)
[2017-08-03] MEDS: ENOXAPARIN 40 MG/0.4 ML (LOVENOX) SYR SC SCH (12:47)
[2017-08-03 16:00] VITALS: BP 114/48
[2017-08-03] MEDS: POLYETHYLENE GLYCOL 17 GM (MIRALAX) PACK PO PRN (16:35)
[2017-08-03 20:00] VITALS: BP 109/60
[2017-08-03] MEDS: AMITRIPTYLINE 25 MG (ELAVIL) TAB PO SCH (21:50)
[2017-08-03] MEDS: ATORVASTATIN 10 MG (LIPITOR) TABLET PO SCH (21:50)
[2017-08-03] MEDS: DIVALPROEX 250 MG DELAYED RELEASE (DEPAKOTE) TAB PO SCH (21:50)
[2017-08-04] MEDS: LATANOPROST 0.005% (XALATAN) OPHTH SOLN 2.5 ML OU SCH ×2 (00:06→21:04)
[2017-08-04] MEDS: IBUPROFEN 600 MG (MOTRIN) TAB PO SCH ×4 (00:07→18:00)
[2017-08-04] MEDS: NS IV 1000 ML 1,000 ML IV SCH (00:07)
[2017-08-04] MEDS: oxyCODONE/APAP 7.5-325 MG (PERCOCET 7.5) TABLET PO SCH ×4 (00:11→18:00)
[2017-08-04 00:26] VITALS: BP 120/60
[2017-08-04] MEDS: RT-ALBUTEROL/IPRATROPIUM 3 ML (DUONEB) VIAL INH SCH ×4 (02:34→18:54)
[2017-08-04 03:28] VITALS: BP 113/54
[2017-08-04] MEDS: CATHETER FLUSH 10 ML SYR IV SCH ×5 (06:13→21:06)
[2017-08-04] MEDS: PANTOPRAZOLE 40 MG (PROTONIX) TAB PO SCH ×2 (06:14→21:06)
[2017-08-04 07:55] VITALS: BP 136/63
[2017-08-04] MEDS: PHENAZOPYRIDINE 100 MG (PYRIDIUM) TABLET PO SCH ×3 (08:25→18:00)
[2017-08-04] MEDS: BACLOFEN 10 MG (LIORESAL) TAB PO SCH ×3 (08:25→21:04)
[2017-08-04] MEDS: NICOTINE PATCH REMOVAL TP SCH (08:25)
[2017-08-04] MEDS: SERTRALINE 100 MG (ZOLOFT) TAB PO SCH (08:25)
[2017-08-04] MEDS: SENNA W/DOCUSATE (SENOKOT S) TABLET PO SCH ×2 (08:26→21:05)
[2017-08-04] MEDS: FUROSEMIDE 40 MG (LASIX) TAB PO SCH (08:26)
[2017-08-04] MEDS: KCL 10 MEQ TAB (MICRO K) PO SCH ×2 (08:26→21:05)
[2017-08-04] MEDS: FLUTICASONE NASAL SPRAY (FLONASE) 16 GM BTL NS SCH (08:26)
[2017-08-04] MEDS: MILK OF MAGNESIA 400 MG/5 ML 30 ML UDC PO PRN ×2 (08:28→18:01)
[2017-08-04] MEDS: CALCITONIN NASAL 200 INTLU/AC (FORTICAL) 3.7 ML BTL SCH (09:37)
[2017-08-04] MEDS: LOSARTAN 50 MG (COZAAR) TAB PO SCH (09:38)
[2017-08-04] MEDS: NEBIVOLOL 5 MG TAB (BYSTOLIC) PO SCH (09:38)
[2017-08-04] MEDS: SPIRONOLACTONE 25 MG (ALDACTONE) TAB PO SCH (09:38)
[2017-08-04] MEDS: NICOTINE 21 MG (NICODERM) PATCH TD SCH (09:39)
[2017-08-04] MEDS: RT-ADVAIR HFA 115/21 MCG PER PUFF IH SCH ×2 (10:16→18:54)
--- NOTE | 2017-08-04 10:44 | Occupational Ther Daily Note ---
OT Current Status-Daily Note Subjective Pt seen in room, up in recliner, agreeable to OT. O2 sat monitor beeping - and sats in 70s and low 80s. Pt reported, "It's because I'm not breathing right". With pursed lip breathing, sats brought up to 90s. No pain mentioned. Appearance Alert but drowsy and falls asleep during exercises. Mental Status/Objective Functional [place] Measure 0=Not Assessed/NA 4=Minimal Assistance 1=Total Assistance 5=Supervision or Setup 2=Maximal Assistance 6=Modified [place] 3=Moderate Assistance 7=Complete [place] ADL-Treatment Pt was able to pull slipper socks up once they were started. Needed cues to remember to breathe as sats dropped while she was pulling socks up. Unable to start them herself due to decreased functional use L UE. Other Treatment Pt did 15 reps R UE AROM without additional resistance, working on shoulder, elbow and forearm. Pt kept falling asleep during exercises and needed reminders to continue or to remember to breathe to manage sats. Exercises for activity tolerance as well as strengthening to help with transfers and ADLs. She said that she hopes she can go home soon and that she has 24/7 caregivers at home. Pt left up in recliner, all needs met. Education OT Patient Education: Exercise program, Modified ADL techniques, Progress toward Goal/Update tx plan, Purpose of tx/functional activities Teaching Recipient: Patient Teaching Methods: Discussion Response to Teaching: Verbalize Understanding, Reinforcement Needed OT Short Term Goals Short Term Goals 1=Demonstrate adherence to instructed precautions during ADL tasks. 2=Patient will verbalize/demonstrate understanding of assistive devices/ modifications for ADL. 3=Patient will improve strength/tolerance for activity to enable patient to perform ADL's. OT Fdc Goals Roving Machine Operator Goals Time Frame: Aug 15, 2017 Eating (FIM): 5 Grooming(FIM): 5 Bathing(FIM): 4 Upper Body Dressing(FIM): 4 Lower Body Dressing(FIM): 3 Toileting(FIM): 3 Toilet/Commode Transfer(FIM): 3 Shower Transfer(FIM): 3 Additional Goals: 1-Demonstrate ADL Tasks, 2-Verbalize Understanding, 3- ImproveStrength/[place] 1=Demonstrate adherence to instructed precautions during ADL tasks. 2=Patient will verbalize/demonstrate understanding of assistive devices/ modifications for ADL. 3=Patient will improve strength/tolerance for activity to enable patient to perform ADL's. OT Education/Plan Discharge Recommendations Plan/Recommendations: Continue POC Treatment Plan/Plan of Care Patient would benefit from OT for education, treatment and training to promote independence in ADL's, mobility, safety and/or upper extremity function for ADL' s. Plan of Care: ADL Retraining, Functional Mobility, UE Funct Exercise/Act, UE Neuromus Re-Ed/Coord Treatment Duration: Aug 15, 2017 Frequency: 5 times per week Estimated Hrs Per Day: .5 hour per day Agreement: Yes Rehab Potential: Fair Time/GCodes Start Time: 09:10 Stop Time: 09:25 Total Time Billed (hr/min): 15 Billed Treatment Time visit, 5 minutes ADL, 10 minutes exercise SENDY NOBLE OT August 04, 2017 10:44
--- NOTE | 2017-08-04 11:50 | Physical Therapy Daily Note ---
PT Daily Note-Current Subjective Agreeable to PT. Reports that she does have caregivers 07/10. She reports she does walk short distances in her home with a FWW with assist from her caregivers. She reports at the time of her fall, she was alone. Mental Status Patient Orientation: Person, Place, Time, Situation Transfers Functional [place] Measure 0=Not Assessed/NA 4=Minimal Assistance 1=Total Assistance 5=Supervision or Setup 2=Maximal Assistance 6=Modified [place] 3=Moderate Assistance 7=Complete IndependenceIRFPAI Quality Coding Scale 6 Independent with activity with or without an assistive device 5 Patient requires set up or clean up by helper. Patient completes activity by themselves 4 Supervision or touching assist (CGA). [place] provide cues , steadying assist 3 The helper provides less than half the effort to complete the activity 2 The helper provides more than half the effort to complete the activity 1 Dependent. The helper does all the effort to complete an activity 7 Patient refused to complete or attempt activity 9 The patient did not perform the activity before the current illness or injury 88 Not attempted due to Medical conditions or safety concerns Transfers (B, C, W/C) (FIM): 4 Supine to/from Sit: 4 Sit to/from Stand: 4 (skilled cues for sequencing) Weight Bearing Right Lower Extremity: Right Full Weight Bearing Left Lower Extremity: Left Full Weight Bearing Gait Training Gait (FIM): 2 Distance (FIM): 1=up to 49 ft Distance: 25 ft Gait Level of Assist: 4 (very close CG-min assist) Gait Persons Needed: 1 Gait Assistive Device: FWW LSO in place during gait. Pt walks with narrow JANE, short step length and decreased foot clearance. Slow gait and unsteady; difficulty gripping the walker with her left hand. Treatments Pt walked around the foot of her bed and returned to bed. Needs met post treatment. Assessment Current Status: Good Progress She was able to walk a short distance today. Unsteady and unsafe without assist. Requires lumbar brace when up. Pt oriented and able to fully participate. PT Retirement Goals Vending Machine Technician Goals PT Vending Machine Technician Goals Time Frame: Aug 15, 2017 Transfers (B,C,W/C) (FIM): 3 Gait (FIM): 1 Gait distance (FIM): 1=up to 49 ft Distance: 10' Gait Level of Assist: 3 Gait Assistive Device: Walker Darrel PT Plan Problem List Problem List: Activity Tolerance, Functional Strength, Safety, Balance, Gait, Transfer, Bed Mobility Treatment/Plan Treatment Plan: Continue Plan of Care Treatment Plan: Bed Mobility, Education, Functional Activity [place], Functional Strength, Gait, Safety, Therapeutic Exercise, Transfers Treatment Duration: Aug 15, 2017 Frequency: 6 times per week Estimated Hrs Per Day: .5 hour per day Patient and/or Family Agrees t: Yes Safety Risks/Education Patient Education: Transfer Techniques, Safety Issues Teaching Recipient: Patient Teaching Methods: Demonstration, Discussion Response to Teaching: Reinforcement Needed Time/GCodes Time In: 945 Time Out: 1013 Total Billed Treatment Time: 28 Total Billed Treatment visit GT 28 BILLIE REDDY PT August 04, 2017 11:50
[2017-08-04 12:04] VITALS: BP 122/66
[2017-08-04] MEDS: ENOXAPARIN 40 MG/0.4 ML (LOVENOX) SYR SC SCH (13:09)
[2017-08-04] MEDS: POLYETHYLENE GLYCOL 17 GM (MIRALAX) PACK PO PRN (13:15)
[2017-08-04 16:00] VITALS: BP 112/58
--- NOTE | 2017-08-04 18:12 | Progress Note (SOAP) ---
Subjective Date Seen by Provider: August 04, 2017 Time Seen by Provider: 12:25 Subjective/Events-last exam Fwup acute T12 compression fracture, COPD with hypercapneic respiratory failure exacerbated by narcotics, GERD, chronic anemia. Pain much better. Was up today ambulating with PT and wants to go home. Objective Exam Vital Signs Date Time Temp Pulse Resp B/P (MAP) Pulse Ox O2 Delivery O2 Flow Rate FiO2 08/04/17 16:00 97.8 70 20 112/58 (76) 95 Nasal Cannula 4.00 08/04/17 15:15 95 Nasal Cannula 2.00 08/04/17 12:04 98.0 64 18 122/66 (84) 95 Nasal Cannula 4.00 08/04/17 10:10 94 Nasal Cannula 2.00 08/04/17 09:00 Nasal Cannula 08/04/17 07:55 97.4 63 18 136/63 (87) 94 Nasal Cannula 4.00 08/04/17 03:28 98.2 68 17 113/54 (73) 93 Nasal Cannula 08/04/17 02:35 94 Nasal Cannula 2.50 08/04/17 00:32 92 2.50 08/04/17 00:26 97.9 77 16 120/60 (80) 92 Nasal Cannula 08/03/17 20:05 94 Nasal Cannula 3.00 08/03/17 20:00 Nasal Cannula 08/03/17 20:00 98.0 63 22 109/60 (76) 93 Nasal Cannula 08/03/17 20:00 95 Nasal Cannula 3.00 I & O 08/04/17 07:00 Intake Total 1460 ml Output Total 300 ml Balance 1160 ml Capillary Refill : Less Than 3 Seconds General Appearance: No Apparent Distress Neck: Supple Respiratory: Lungs Clear Cardiovascular: Regular Rate, Rhythm Gastrointestinal: normal bowel sounds, non tender, soft Extremity: Non Tender, No Calf Tenderness, No Pedal Edema Neurologic/Psychiatric: Alert, Oriented x3 Assessment/Plan Assessment/Plan Assess & Plan/Chief Complaint 1. Acute T12 compression fracture--pain improved, continue PT 2. COPD with hypercapneic respiratory failure exacerbated by narcotics-- improving 3. Chronic Anemia--DC ibuprofen and lovenox and check CBC in AM 4. GERD with history of GI bleed--increase protonix to BID and stop ibuprofen and do celebrex instead Clinical Quality Measures Admission Status Admission Dx 1. Acute T12 Compression Fracture with uncontrollable pain--admit for pain control with IV morphine, calcitonin nasal spray, oxycodone, toradol 2. COPD with Hypercapnea--start SVNS and oxygen, may need BIPAP if worsening, will try to decrease pain medications so don't decrease respiratory drive 3. Hypertension--resume home meds 4. GERD--resume protonix 5. Chronic Anemia--monitor H/H 6. Hx of CVA with left sided hemiplegia--start PT once pain better controlled DVT/VTE Risk/Contraindication: Risk Factor Score Per Nursin RFS Level Per Nursing on Admit: 4+=Very High KELSIE PEARSON DO August 04, 2017 18:12
[2017-08-04 19:52] VITALS: BP 122/57
[2017-08-04] MEDS: ATORVASTATIN 10 MG (LIPITOR) TABLET PO SCH (21:04)
[2017-08-04] MEDS: AMITRIPTYLINE 25 MG (ELAVIL) TAB PO SCH (21:05)
[2017-08-04] MEDS: CELECOXIB 100 MG (CeleBREX) CAP PO SCH (21:05)
[2017-08-04] MEDS: DIVALPROEX 250 MG DELAYED RELEASE (DEPAKOTE) TAB PO SCH (21:05)
[2017-08-04] MEDS ORDERED: CELECOXIB 100 MG (CeleBREX) CAP PO ONE (22:15)
[2017-08-05 00:12] VITALS: BP 134/58
[2017-08-05] MEDS: oxyCODONE/APAP 7.5-325 MG (PERCOCET 7.5) TABLET PO SCH ×4 (00:16→17:14)
[2017-08-05] MEDS: RT-ALBUTEROL/IPRATROPIUM 3 ML (DUONEB) VIAL INH SCH ×4 (02:22→20:02)
[2017-08-05 04:11] VITALS: BP 126/54
[2017-08-05] MEDS: CATHETER FLUSH 10 ML SYR IV SCH ×3 (06:17→21:01)
[2017-08-05] MEDS: PANTOPRAZOLE 40 MG (PROTONIX) TAB PO SCH ×2 (06:51→21:00)
[2017-08-05 07:11] LABS: BASOPHILS % (AUTO) 0 % (0-10); EOSINOPHILS # (AUTO) 0.2 10^3/uL (0.0-0.3); EOSINOPHILS % (AUTO) 6 % (0-10); HEMATOCRIT 29 % (35-52); HEMOGLOBIN 9.3 G/DL (11.5-16.0); LYMPHOCYTES # (AUTO) 0.9 X 10^3 (1.0-4.0); LYMPHOCYTES % (AUTO) 22 % (12-44); MEAN CORPUSCULAR HEMOGLOBIN 29 PG (25-34); MEAN CORPUSCULAR HGB CONC 32 G/DL (32-36); MEAN CORPUSCULAR VOLUME 91 FL (80-99); MEAN PLATELET VOLUME 8.8 FL (7.4-10.4); MONOCYTES # (AUTO) 0.4 X 10^3 (0.0-1.0); MONOCYTES % (AUTO) 9 % (0-12); NEUTROPHILS # (AUTO) 2.5 X 10^3 (1.8-7.8); NEUTROPHILS % (AUTO) 62 % (42-75); PLATELET COUNT 249 10^3/uL (130-400); RED BLOOD COUNT 3.21 10^6/uL (4.35-5.85); RED CELL DISTRIBUTION WIDTH 18.7 % (10.0-14.5)
[2017-08-05 07:31] LABS: ALBUMIN 3.7 GM/DL (3.2-4.5); BILIRUBIN,TOTAL 0.4 MG/DL (0.1-1.0); CALCIUM 9.3 MG/DL (8.5-10.1); CREATININE SERUM 0.95 MG/DL (0.60-1.30); POTASSIUM 4.2 MMOL/L (3.6-5.0); TOTAL PROTEIN 6.4 GM/DL (6.4-8.2)
[2017-08-05 08:30] VITALS: BP 135/73
[2017-08-05] MEDS: SPIRONOLACTONE 25 MG (ALDACTONE) TAB PO SCH (08:48)
[2017-08-05] MEDS: SENNA W/DOCUSATE (SENOKOT S) TABLET PO SCH ×2 (08:48→20:59)
[2017-08-05] MEDS: FUROSEMIDE 40 MG (LASIX) TAB PO SCH (08:48)
[2017-08-05] MEDS: KCL 10 MEQ TAB (MICRO K) PO SCH ×2 (08:48→21:00)
[2017-08-05] MEDS: NEBIVOLOL 5 MG TAB (BYSTOLIC) PO SCH (08:48)
[2017-08-05] MEDS: CELECOXIB 100 MG (CeleBREX) CAP PO SCH ×2 (08:48→21:00)
[2017-08-05] MEDS: BACLOFEN 10 MG (LIORESAL) TAB PO SCH ×3 (08:48→21:00)
[2017-08-05] MEDS: LOSARTAN 50 MG (COZAAR) TAB PO SCH (08:49)
[2017-08-05] MEDS: SERTRALINE 100 MG (ZOLOFT) TAB PO SCH (08:49)
[2017-08-05] MEDS: LIDOCAINE (LIDODERM) 5% PATCH TOP SCH (08:49)
[2017-08-05] MEDS: NICOTINE PATCH REMOVAL TP SCH (08:49)
[2017-08-05] MEDS: FLUTICASONE NASAL SPRAY (FLONASE) 16 GM BTL NS SCH (08:49)
[2017-08-05] MEDS: NICOTINE 21 MG (NICODERM) PATCH TD SCH (08:49)
[2017-08-05] MEDS: CALCITONIN NASAL 200 INTLU/AC (FORTICAL) 3.7 ML BTL SCH (09:01)
[2017-08-05] MEDS: RT-ADVAIR HFA 115/21 MCG PER PUFF IH SCH ×2 (09:59→20:04)
[2017-08-05 12:02] VITALS: BP 139/64
--- NOTE | 2017-08-05 14:39 | Physical Therapy Daily Note ---
PT Daily Note-Current Subjective Patient agrees to PT. Pain Numeric Pain Scale: 0-No Pain Location: No Pain Reported Mental Status Patient Orientation: Person, Time, Situation Attachments: Oxygen Transfers Functional [place] Measure 0=Not Assessed/NA 4=Minimal Assistance 1=Total Assistance 5=Supervision or Setup 2=Maximal Assistance 6=Modified [place] 3=Moderate Assistance 7=Complete IndependenceIRFPAI Quality Coding Scale 6 Independent with activity with or without an assistive device 5 Patient requires set up or clean up by helper. Patient completes activity by themselves 4 Supervision or touching assist (CGA). [place] provide cues , steadying assist 3 The helper provides less than half the effort to complete the activity 2 The helper provides more than half the effort to complete the activity 1 Dependent. The helper does all the effort to complete an activity 7 Patient refused to complete or attempt activity 9 The patient did not perform the activity before the current illness or injury 88 Not attempted due to Medical conditions or safety concerns Transfers (B, C, W/C) (FIM): 4 Scootin Rollin Supine to/from Sit: 5 Sit to/from Stand: 4 Bed to/from Chair: 4 CGA for safety (PLOF) Weight Bearing Right Lower Extremity: Right Full Weight Bearing Left Lower Extremity: Left Full Weight Bearing Gait Training Gait (FIM): 1 Distance (FIM): 1=up to 49 ft Distance: 25' Gait Level of Assist: 4 Gait Persons Needed: 1 Gait Assistive Device: FWW CGA for safety/NBOS gait sequence. Noted increase left UE and LE tone (PLOF) Patient utilizes w/c at home and has 24/7 caregivers for all assistance Assessment Patient incontinent urine requiring assistance. Patient currently is CGA for safety and ambulates short distances PLOF. Patient has established 24/7 caregivers and desires to return to home. PT Retirement Goals Family Practitioner Goals PT Retirement Goals Time Frame: Aug 15, 2017 Transfers (B,C,W/C) (FIM): 3 Gait (FIM): 1 Gait distance (FIM): 1=up to 49 ft Distance: 10' Gait Level of Assist: 3 Gait Assistive Device: Walker Darrel PT Plan Treatment/Plan Treatment Plan: Continue Plan of Care Treatment Plan: Bed Mobility, Education, Functional Activity [place], Functional Strength, Gait, Safety, Therapeutic Exercise, Transfers Treatment Duration: Aug 15, 2017 Frequency: 6 times per week Estimated Hrs Per Day: .5 hour per day Patient and/or Family Agrees t: Yes Time/GCodes Time In: 1405 Time Out: 1428 Total Billed Treatment Time: 23 Total Billed Treatment 1 visit FA x 2 23 min JOHN TINOCO PT August 05, 2017 14:39
--- NOTE | 2017-08-05 15:07 | Occupational Ther Daily Note ---
OT Current Status-Daily Note Subjective Pt seen in room, up in recliner, agreeable to OT. No pain mentioned. Appearance Drowsy, cooperative Mental Status/Objective Functional [place] Measure 0=Not Assessed/NA 4=Minimal Assistance 1=Total Assistance 5=Supervision or Setup 2=Maximal Assistance 6=Modified [place] 3=Moderate Assistance 7=Complete [place] ADL-Treatment Pt was incontinent of urine in Depends. Pt stood up with min assist but had difficulty maintaining standing, with OT assistance. She lifted her feet to put them into clean [place] but said that usually her caregivers put them on her because it takes too much time if she has to do it. While OT maintained pt in standing, nursing pulled off old pants and pulled up new ones. Pt had difficulty holding on to walker with L hand. Pt's O2 sats dropped to 61% while in standing and she had difficulty following instructions for breathing to increase sats. After she sat down, sats brought back up to 90%. Pt helped minimally for changing her gowns and is not able to don brace herself. She did 15 reps R UE shoulder flex and almost fell asleep at rep 5. Her sats dropped as she dozed and needed reminders to breath. Pt left up in recliner, all needs met. Jef not think pt could tolerate intense therapy on IRF. She has 24/7 caregivers at home. Education OT Patient Education: Exercise program, Purpose of tx/functional activities, Transfer techniques Teaching Recipient: Patient Teaching Methods: Discussion Response to Teaching: Verbalize Understanding, Return Demonstration, Reinforcement Needed OT Short Term Goals Short Term Goals 1=Demonstrate adherence to instructed precautions during ADL tasks. 2=Patient will verbalize/demonstrate understanding of assistive devices/ modifications for ADL. 3=Patient will improve strength/tolerance for activity to enable patient to perform ADL's. OT Intermediate Goals Intermediate Goals Time Frame: Aug 15, 2017 Eating (FIM): 5 Grooming(FIM): 5 Bathing(FIM): 4 Upper Body Dressing(FIM): 4 Lower Body Dressing(FIM): 3 Toileting(FIM): 3 Toilet/Commode Transfer(FIM): 3 Shower Transfer(FIM): 3 Additional Goals: 1-Demonstrate ADL Tasks, 2-Verbalize Understanding, 3- ImproveStrength/[place] 1=Demonstrate adherence to instructed precautions during ADL tasks. 2=Patient will verbalize/demonstrate understanding of assistive devices/ modifications for ADL. 3=Patient will improve strength/tolerance for activity to enable patient to perform ADL's. OT Education/Plan Discharge Recommendations Plan/Recommendations: Continue POC Treatment Plan/Plan of Care Patient would benefit from OT for education, treatment and training to promote independence in ADL's, mobility, safety and/or upper extremity function for ADL' s. Plan of Care: ADL Retraining, Functional Mobility, UE Funct Exercise/Act, UE Neuromus Re-Ed/Coord Treatment Duration: Aug 15, 2017 Frequency: 5 times per week Estimated Hrs Per Day: .5 hour per day Agreement: Yes Rehab Potential: Fair Time/GCodes Start Time: 14:25 Stop Time: 14:35 Total Time Billed (hr/min): 10 Billed Treatment Time 8 minutes ADL, 2 minutes exercise SENDY NOBLE OT August 05, 2017 15:07
[2017-08-05 15:30] VITALS: BP 130/60
--- NOTE | 2017-08-05 18:17 | Progress Note (SOAP) ---
Subjective Date Seen by Provider: August 05, 2017 Time Seen by Provider: 12:30 Subjective/Events-last exam Fwup acute T12 compression fracture, COPD with hypercapneic respiratory failure exacerbated by narcotics, GERD, chronic anemia. Was in room with oxygen off and oxygen sat down into 80s. C/O pain with any movement but otherwise is groggy sleeping in the chair or bed from pain medications. Objective Exam Vital Signs Date Time Temp Pulse Resp B/P (MAP) Pulse Ox O2 Delivery O2 Flow Rate FiO2 08/05/17 15:43 95 Nasal Cannula 2.00 08/05/17 15:30 97.1 72 17 130/60 (83) 92 Nasal Cannula 2.00 08/05/17 12:02 97.1 71 12 139/64 (89) 93 Nasal Cannula 2.00 08/05/17 09:58 96 Nasal Cannula 2.00 08/05/17 08:52 Nasal Cannula 2.00 08/05/17 08:30 96.7 71 18 135/73 (93) 91 Nasal Cannula 2.00 08/05/17 04:11 97.6 61 19 126/54 (78) 93 Nasal Cannula 4.00 08/05/17 02:23 93 Nasal Cannula 2.00 08/05/17 00:12 97.8 76 17 134/58 (83) 96 Nasal Cannula 4.00 08/04/17 21:00 Nasal Cannula 3.00 08/04/17 19:52 97.1 74 18 122/57 (78) 93 Nasal Cannula 4.00 08/04/17 19:06 92 Nasal Cannula 2.00 I & O 08/05/17 07:00 Intake Total 2340 ml Output Total 1853 ml Balance 487 ml Capillary Refill : Less Than 3 Seconds General Appearance: No Apparent Distress Neck: Supple Respiratory: Lungs Clear, Decreased Breath Sounds Cardiovascular: Regular Rate, Rhythm Gastrointestinal: normal bowel sounds, non tender, soft Neurologic/Psychiatric: Alert Results Lab Laboratory Tests 08/05/17 06:58: White Blood Count 4.0L, Red Blood Count 3.21L, Hemoglobin 9.3L, Hematocrit 29L, Mean Corpuscular Volume 91, Mean Corpuscular Hemoglobin 29, Mean Corpuscular Hemoglobin Concent 32, Red Cell Distribution Width 18.7H, Platelet Count 249, Mean Platelet Volume 8.8, Neutrophils (%) (Auto) 62, Lymphocytes (%) (Auto) 22, Monocytes (%) (Auto) 9, Eosinophils (%) (Auto) 6, Basophils (%) (Auto) 0, Neutrophils # (Auto) 2.5, Lymphocytes # (Auto) 0.9L, Monocytes # (Auto) 0.4, Eosinophils # (Auto) 0.2, Basophils # (Auto) 0.0, Sodium Level 144, Potassium Level 4.2, Chloride Level 106, Carbon Dioxide Level 27, Anion Gap 11, Blood Urea Nitrogen 19H, Creatinine 0.95, Estimat Glomerular Filtration Rate 58, BUN/ Creatinine Ratio 20, Glucose Level 95, Calcium Level 9.3, Total Bilirubin 0.4, Aspartate Amino Transf (AST/SGOT) 40H, Alanine Aminotransferase (ALT/SGPT) 33, Alkaline Phosphatase 79, Total Protein 6.4, Albumin 3.7 Assessment/Plan Assessment/Plan Assess & Plan/Chief Complaint 1. Acute T12 compression fracture--pain improved, continue PT and OT, rehab eval 2. COPD with hypercapneic respiratory failure exacerbated by narcotics-- improving 3. Chronic Anemia--H/H stable 4. GERD with history of GI bleed--continue protonix Clinical Quality Measures Admission Status Admission Dx 1. Acute T12 Compression Fracture with uncontrollable pain--admit for pain control with IV morphine, calcitonin nasal spray, oxycodone, toradol 2. COPD with Hypercapnea--start SVNS and oxygen, may need BIPAP if worsening, will try to decrease pain medications so don't decrease respiratory drive 3. Hypertension--resume home meds 4. GERD--resume protonix 5. Chronic Anemia--monitor H/H 6. Hx of CVA with left sided hemiplegia--start PT once pain better controlled DVT/VTE Risk/Contraindication: Risk Factor Score Per Nursin RFS Level Per Nursing on Admit: 4+=Very High KELSIE PAERSON DO August 05, 2017 18:17
[2017-08-05] MEDS ORDERED: OXYC-464 PO (18:22)
[2017-08-05] MEDS ORDERED: CELE-63 PO (18:22)
[2017-08-05] MEDS ORDERED: Calcitonin (18:22)
--- NOTE | 2017-08-05 18:25 | D/C HH Face to Face Order ---
D/C Face to Face Orders Instructions for Patient Patient Instructions/FollowUp: Fwup in 1 week Physician to follow Patient: Ivonne Discharge Diet for Home: Cardiac Diet, Low Sodium Diet Patient Problems: Acute T12 Compression Fracture COPD with hypercapnea due to narcotics Patient Data-Allergies,Ht & Wt Patient Allergies: Coded Allergies: Penicillins (Verified Allergy, Unknown, PT HAS RECEIVED ANCEF WITHOUT ISSUE, 05/30/14) meperidine (Verified Allergy, Unknown, 05/30/14) Height (Feet): 5 Height (Inches): 6.00 Weight (Pounds): 175 Weight (Ounces): 5.0 Home Health Need/Face to Face Date of Face to Face: August 05, 2017 Clinical Findings: Generalized weakness and fatigue, Instability, Muscle weakness, Pain with ambulation, Shortness of breath, Unsteady gait I have seen Pt [id number]: Yes Discharged To: Home Diagnosis/Conditions: Acute T12 Compression Fracture COPD with hypercapnea due to narcotics Patient is Homebound due to: John[place] fall risk due to instabilty, Muscle weakness , Pain w/ambulation, Shortness of breath/distress Homebound Status Due to the above stated illness, injury or surgical procedure (medical condition or diagnosis) and associated clinical findings, the patient is homebound because of his/her inability to leave home except with aid of a supportive device and/or person AND leaving the home requires a considerable and taxing effort or is medically contraindicated. Pt req the following assistanc: Aid of another person, Wheelchair Home Health Nursing Orders Home Health Services Order: Nursing Services, [place]work Folder-Evaluate & Treat, Physical Therapy-Evaluate & Treat Home Health Infusion Therapy Site Location: Hand Therapy Orders Therapy Orders: OT (must have SN or PT order), Physical Therapy Therapy Specific Orders: Teach strategies/cognitive deficits, Teach enviro modifications/safety, Gait training, Increase strength/endurance, Restore ROM Certify Stmt I certify that this patient is under my care and that I, a nurse practitioner or a physician; a surgeon assistant working with me, had a face to face encounter that - meets the physician face to face encounter requirements with this patient as dated. KELSIE PEARSON DO August 05, 2017 18:25
[2017-08-05 20:55] VITALS: BP 119/56
[2017-08-05] MEDS: LATANOPROST 0.005% (XALATAN) OPHTH SOLN 2.5 ML OU SCH (20:59)
[2017-08-05] MEDS: DIVALPROEX 250 MG DELAYED RELEASE (DEPAKOTE) TAB PO SCH (21:00)
[2017-08-05] MEDS: ATORVASTATIN 10 MG (LIPITOR) TABLET PO SCH (21:00)
[2017-08-05] MEDS: AMITRIPTYLINE 25 MG (ELAVIL) TAB PO SCH (21:00)
[2017-08-06] VITALS: BP 120/65
[2017-08-06] MEDS: oxyCODONE/APAP 7.5-325 MG (PERCOCET 7.5) TABLET PO SCH ×3 (00:06→11:37)
[2017-08-06] MEDS: RT-ALBUTEROL/IPRATROPIUM 3 ML (DUONEB) VIAL INH SCH ×3 (02:45→14:35)
[2017-08-06 04:00] VITALS: BP 111/61
[2017-08-06] MEDS: PANTOPRAZOLE 40 MG (PROTONIX) TAB PO SCH (06:15)
[2017-08-06] MEDS: CATHETER FLUSH 10 ML SYR IV SCH ×2 (06:15→14:14)
[2017-08-06 08:51] VITALS: BP 131/69
[2017-08-06] MEDS: KCL 10 MEQ TAB (MICRO K) PO SCH (09:53)
[2017-08-06] MEDS: LIDOCAINE (LIDODERM) 5% PATCH TOP SCH (09:53)
[2017-08-06] MEDS: NICOTINE 21 MG (NICODERM) PATCH TD SCH (09:53)
[2017-08-06] MEDS: RT-ADVAIR HFA 115/21 MCG PER PUFF IH SCH (09:53)
[2017-08-06] MEDS: FUROSEMIDE 40 MG (LASIX) TAB PO SCH (09:54)
[2017-08-06] MEDS: SERTRALINE 100 MG (ZOLOFT) TAB PO SCH (09:54)
[2017-08-06] MEDS: BACLOFEN 10 MG (LIORESAL) TAB PO SCH ×2 (09:54→12:24)
[2017-08-06] MEDS: CELECOXIB 100 MG (CeleBREX) CAP PO SCH (09:54)
[2017-08-06] MEDS: SPIRONOLACTONE 25 MG (ALDACTONE) TAB PO SCH (09:54)
[2017-08-06] MEDS: SENNA W/DOCUSATE (SENOKOT S) TABLET PO SCH (09:54)
[2017-08-06] MEDS: NICOTINE PATCH REMOVAL TP SCH (09:55)
[2017-08-06] MEDS: FLUTICASONE NASAL SPRAY (FLONASE) 16 GM BTL NS SCH (09:55)
[2017-08-06] MEDS: NEBIVOLOL 5 MG TAB (BYSTOLIC) PO SCH (09:55)
[2017-08-06] MEDS: LOSARTAN 50 MG (COZAAR) TAB PO SCH (09:55)
[2017-08-06] MEDS: CALCITONIN NASAL 200 INTLU/AC (FORTICAL) 3.7 ML BTL SCH (09:56)
[2017-08-06 12:30] VITALS: BP 149/66
--- NOTE | 2017-08-06 13:37 | Physical Therapy Daily Note ---
PT Daily Note-Current Subjective Patient in recliner pre tx, agrees to PT, has 8/10 pain in her back. Appearance Patient in bed post tx with nurse call, phone, tray, all needs met. Mental Status Patient Orientation: Person, Place, Situation Attachments: Oxygen 2L of O2 nasal canula Transfers Functional [place] Measure 0=Not Assessed/NA 4=Minimal Assistance 1=Total Assistance 5=Supervision or Setup 2=Maximal Assistance 6=Modified [place] 3=Moderate Assistance 7=Complete IndependenceIRFPAI Quality Coding Scale 6 Independent with activity with or without an assistive device 5 Patient requires set up or clean up by helper. Patient completes activity by themselves 4 Supervision or touching assist (CGA). [place] provide cues , steadying assist 3 The helper provides less than half the effort to complete the activity 2 The helper provides more than half the effort to complete the activity 1 Dependent. The helper does all the effort to complete an activity 7 Patient refused to complete or attempt activity 9 The patient did not perform the activity before the current illness or injury 88 Not attempted due to Medical conditions or safety concerns Transfers (B, C, W/C) (FIM): 2 Scootin Rollin Supine to/from Sit: 2 Sit to/from Stand: 4 Bed to/from Chair: 4 Weight Bearing Right Lower Extremity: Right Full Weight Bearing Left Lower Extremity: Left Full Weight Bearing Gait Training Gait (FIM): 1 Distance: 15' Gait Level of Assist: 4 Gait Persons Needed: 1 Gait Assistive Device: FWW Patient needs help guiding her walker and with keeping her left hand on the walker. Very slow ambulation, unsteady. Treatments transfers, bed mobility, ambulation Assessment Current Status: Poor Progress no change in mobility PT Copy Center Specialist Goals Copy Center Specialist Goals PT Copy Center Specialist Goals Time Frame: Aug 15, 2017 Transfers (B,C,W/C) (FIM): 3 Gait (FIM): 1 Gait distance (FIM): 1=up to 49 ft Distance: 10' Gait Level of Assist: 3 Gait Assistive Device: Walker Darrel PT Plan Problem List Problem List: Activity Tolerance, Functional Strength, Safety, Balance, Gait, Transfer, Bed Mobility, ROM Treatment/Plan Treatment Plan: Continue Plan of Care Treatment Plan: Bed Mobility, Education, Functional Activity Mariano, Functional Strength, Gait, Safety, Therapeutic Exercise, Transfers Treatment Duration: Aug 15, 2017 Frequency: 6 times per week Estimated Hrs Per Day: .5 hour per day Patient and/or Family Agrees t: Yes Safety Risks/Education Patient Education: Gait Training, Transfer Techniques, Correct Positioning, Safety Issues Teaching Recipient: Patient Teaching Methods: Demonstration, Discussion Response to Teaching: Reinforcement Needed Time/GCodes Time In: 1310 Time Out: 1330 Total Billed Treatment Time: 20 Total Billed Treatment 1 visit GT 20' LADARIUS DUEÑAS PT August 06, 2017 13:37
--- NOTE | 2017-08-06 14:45 | Occ Therapy Progress Note ---
Therapy Progress Note 1320 Pt declined OT, indicating that she was going home today. SENDY NOBLE OT August 06, 2017 14:45
--- NOTE | 2017-08-08 12:02 | Physician Query Clarification ---
PQ-Further Specificity Admission/Discharge Admission Date: July 31, 2017 at 16:19 Discharge Date: August 06, 2017 at 16:10 The medical record reflects the following clinical scenario: History/Risk Factors: compression fx T11-12, HTN w/ CHF, COPD Clinical Findings: COPD w/ hypercapneic respiratory failure exacerbated by narcotic, decreased breath sounds, wheezing Treatment: SVNS, oxygen Question: Can you further specify diagnosis/condition per the clinical indicators above? Please document below. 1. acute on chronic respiratory failure 2. Chronic respiratory failure 3. Acute respiratory failure 4. Respiratory failure unspecifed 5. Other, with explanation of the clinical findings. 6. Clinically undetermined, no explanation for the clinical findings. PHYSICIAN RESPONSE Can you specify per above: Other, explanation/clinical finding (3) In responding to this query, please exercise your independent professional judgment. The purpose of this communication is to more accurately reflect the complexity of your patients condition. The fact that a question is asked does not imply that any particular answer is desired or expected. Thank you for your timely response to this clarification. Requestors name: Vannessa THIS PHYSICIAN QUERY FORM IS A PERMANENT PART OF THE MEDICAL RECORD VANNESSA DE LA FUENTE August 08, 2017 12:02 KELSIE PEARSON DO Aug 22, 2017 12:05
--- NOTE | 2017-08-27 22:54 | Discharge Summary ---
Diagnosis/Chief Complaint Date of Admission July 31, 2017 at 16:19 Date of Discharge August 06, 2017 at 16:10 Discharge Date: August 06, 2017 Discharge Diagnosis 1. Acute T12 Compression Fracture from fall 2. COPD with Hypercapneic Respiratory Failure 3. Hypertension 4. GERD 5. Chronic Anemia 6. Hx of CVA with left sided hemiplegia Reason Hospital Visit This is a 72 year old female with a history of previous stroke with left sided hemiplegia. She sustained a fall at home with no loss of consciousness but was experiencing severe low back pain so she was brought to the emergency room for evaluation. She was found to have an acute T12 compression fracture. Due to difficulty controlling her pain, it was decided to admit her for pain control and PT. Discharge Summary Hospital Course Hospital Course This is a 72 year old female with a history of previous stroke with left sided hemiplegia. She sustained a fall at home with no loss of consciousness but was experiencing severe low back pain so she was brought to the emergency room for evaluation. She was found to have an acute T12 compression fracture. Due to difficulty controlling her pain, it was decided to admit her for pain control and PT. She was initially given IV fentanyl for pain then switched to oral pain medications. PT was started and she was fitted for a back brace. Her chronic respiratory failure was worsened with worsening C02 retention due to the narcotics so she was switched from IV fentanyl to oral oxycodone for pain and celebrex was added. )2 did improve after this change in her pain medications. She was started on a miacalcin nose spray on admit. I discussed with the patient that I felt she should go to a SNF on discharge but she refused and stated she had 24hr help at home and wished to go home. She did consent to both homehealth and home PT. She will followup with me in my office in 1 week. Procedures None. Discharge Physical Examination Allergies: Coded Allergies: Penicillins (Verified Allergy, Unknown, PT HAS RECEIVED ANCEF WITHOUT ISSUE, 05/30/14) meperidine (Verified Allergy, Unknown, 05/30/14) General Appearance: Alert, No Acute Distress Respiratory: Clear to Auscultation, Other (decreased aeration) Cardiovascular: Regular Rate Abdominal: Normal Bowel Sounds, Soft, No Tenderness Extremities: No Clubbing, No Cyanosis, No Edema Neuro: Other (abnormal gait and speech from previous CVA and gait worsened now due to pain from fracture) Psych/Mental Status: Mental Status NL Discharge Home Medications Reviewed and agree with Discharge Medication list on patient's Discharge Instruction sheet Instructions to Patient/Family Please see electronic discharge instructions given to patient. Clinical Quality Measures DVT/VTE Risk/Contraindication: Risk Factor Score Per Nursin RFS Level Per Nursing on Admit: 4+=Very High KELSIE PEARSON DO Aug 27, 2017 22:54
== END 2017-08-06 16:10 | disposition home health service (06) | DRG 551 ==
LOC: EDUNIT# 15:03 → ER 15:04 → 4TH 16:19
PROVIDERS: ADMIT Family Medicine; ATTEND Family Medicine
DX: S22.080A Wedge compression fracture of T11-T12 vertebra, initial encounter for closed fracture (principal); J96.02 Acute respiratory failure with hypercapnia; I69.354 Hemiplegia and hemiparesis following cerebral infarction affecting left non-dominant side; I11.0 Hypertensive heart disease with heart failure; I50.9 Heart failure, unspecified; J44.9 Chronic obstructive pulmonary disease, unspecified; I69.398 Other sequelae of cerebral infarction; N39.498 Other specified urinary incontinence; F17.210 Nicotine dependence, cigarettes, uncomplicated; E78.00 Pure hypercholesterolemia, unspecified; G47.30 Sleep apnea, unspecified; G40.909 Epilepsy, unspecified, not intractable, without status epilepticus; I73.9 Peripheral vascular disease, unspecified; K21.9 Gastro-esophageal reflux disease without esophagitis; K59.09 Other constipation; K44.9 Diaphragmatic hernia without obstruction or gangrene; M19.91 Primary osteoarthritis, unspecified site; M79.7 Fibromyalgia; H40.9 Unspecified glaucoma; I25.10 Atherosclerotic heart disease of native coronary artery without angina pectoris; F41.9 Anxiety disorder, unspecified; D64.9 Anemia, unspecified; I71.4 Abdominal aortic aneurysm, without rupture; R11.2 Nausea with vomiting, unspecified; W18.39XA Other fall on same level, initial encounter; Y92.009 Unspecified place in unspecified non-institutional (private) residence as the place of occurrence of the external cause; Z99.81 Dependence on supplemental oxygen; Z79.52 Long term (current) use of systemic steroids; Z85.3 Personal history of malignant neoplasm of breast
CPT/HCPCS: 36415; 70450; 72125; 72131; 80053; 85025; 94640; 94664; 94760; 96374; 96375

== ENCOUNTER 2017-11-17 07:44 | Inpatient (IN) | payer MEDICARE, MEDICAID ==
[~2017-11-17] VITALS: Ht 172.7 cm; Wt 70.3 kg
[~2017-11-17 07:44] MED LIST changes: +ALBU18HF2 INH; +BUDE10.2 INH; +CELE-63 PO; -CODE118S2 PO; +CODE118S4 PO; +Calcitonin; +DIVA-74 PO; -DIVA250T4 PO; -IPRA3AMP IH; -IPRA3AMP INH; +IPRA3AMP31 IH; +IPRA3AMP31 INH; -LOSA50TA36 PO; +LOSA50TA7 PO; -OXYC-197 PO; +OXYC-464 PO; +OXYC1TAB87 PO; +SPIR25TA5 PO; +SUCR1TAB36 PO
[2017-11-17] MEDS ORDERED: RT-ALBUTEROL/IPRATROPIUM 3 ML (DUONEB) VIAL ONE (07:55)
[2017-11-17] MEDS ORDERED: NS IV 1000 ML 1,500 ML IV ONE (08:00)
[2017-11-17] MEDS ORDERED: cefTRIAXone FOR IV USE 1,000 MG in NS (IVPB) 50 ML IV ONE (08:00)
[2017-11-17] MEDS ORDERED: RT-ALBUTEROL/IPRATROPIUM 3 ML (DUONEB) VIAL INH ONE (08:00)
[2017-11-17] MEDS ORDERED: ACETAMINOPHEN 500 MG TAB (TYLENOL) PO PRN (08:00)
--- NOTE | 2017-11-17 08:16 | ED General ---
General Chief Complaint: Cough/Cold/Flu Symptoms Stated Complaint: VOMITTING,COUGH,HEADACHE Source of Information: Patient, Family Exam Limitations: No Limitations History of Present Illness Date Seen by Provider: Nov 17, 2017 Time Seen by Provider: 07:54 Initial Comments Patient presents to ER by private conveyance with her significant other and chief complaint that for the past 2 days she's been having progressively worsening cough shortness of breath and feeling of malaise. This morning she was starting to have some pain in her chest worse on inspiration. She has a history of COPD. Her cough is nonproductive. She's had a fever and chills. She also is being treated with an unknown antibiotic for a UTI outpatient for the past week. She says for the past 2 months she's felt poorly with malaise and coughing as well. She does have a history of heart failure but has not noted any weight gain or swelling of her hands or feet. She is not used her inhalers today but she did use her inhalers several times yesterday. She uses oxygen around 3 L/m by nasal cannula at home. She doesn't have any history of coronary artery disease however. She is not diabetic but does have high blood pressure. The patient denies any abdominal pain but she does have a history of an incisional abdominal hernia the last several years. She does take Lasix 40 mg daily. Allergies and Home Medications Allergies Coded Allergies: Penicillins (Verified Allergy, Unknown, PT HAS RECEIVED ANCEF WITHOUT ISSUE, 05/30/14) meperidine (Verified Allergy, Unknown, 05/30/14) Home Medications Albuterol Sulfate 18 Gm Hfa.aer.ad, 2 PUFF INH Q6H PRN for SHORTNESS OF BREATH, (Reported) Amitriptyline HCl 25 Mg Tablet, 25 MG PO HS, (Reported) Atorvastatin Calcium 10 Mg Tablet, 10 MG PO HS, (Reported) Baclofen 10 Mg Tablet, 10 MG PO BID PRN for SPASMS, (Reported) Budesonide/Formoterol Fumarate 10.2 Gm Hfa.aer.ad, 2 PUFF INH BID, (Reported) Celecoxib 200 Mg Capsule, 200 MG PO BID Prescribed by: KELSIE PEARSON on 08/05/171821 Divalproex Sodium 250 Mg Tablet.dr, 250 MG PO HS, (Reported) Fluticasone Propionate 16 Gm Calder.susp, 1 SPRAY NS BID, (Reported) Furosemide 40 Mg Tablet, 40 MG PO 1200 PRN for SWELLING, (Reported) Furosemide 40 Mg Tablet, 80 MG PO DAILY, (Reported) TAKES 2 (40MG) TABLETS Ipratropium/Albuterol Sulfate 3 Ml Ampul.neb, 3 ML IH QID PRN for SHORTNESS OF BREATH, (Reported) Latanoprost 2.5 Ml Drops, 1 DROP OU HS, (Reported) Losartan Potassium 50 Mg Tablet, 50 MG PO DAILY, (Reported) Magnesium Hydroxide 400 Mg/5 Ml Oral.susp, 30 ML PO DAILY PRN for CONSTIPATION- 7TH LINE, (Reported) Nebivolol HCl 10 Mg Tab, 10 MG PO DAILY, (Reported) Ondansetron HCl 4 Mg Tablet, 4 MG PO Q8H PRN for NAUSEA/VOMITING-1ST LINE, ( Reported) Oxycodone HCl/Acetaminophen 1 Each Tablet, 1 EACH PO Q6HR Prescribed by: KELSIE PEARSON on 08/05/171821 Pantoprazole Sodium 40 Mg Tablet.dr, 40 MG PO BID, (Reported) Polyethylene Glycol 3350 255 Gm Powder, 17 GM PO DAILY PRN for CONSTIPATION-2ND LINE, (Reported) Potassium Chloride 10 Meq Tablet.er, 20 MEQ PO BID, (Reported) TAKES 2 (10MEQ) TABLETS Sertraline HCl 100 Mg Tablet, 200 MG PO DAILY, (Reported) TAKES 2 (100MG) TABLETS Spironolactone 25 Mg Tablet, 25 MG PO DAILY, (Reported) Sucralfate 1 Gm Tablet, 1 GM PO ACHS PRN for STOMACH UPSET, (Reported) [Calcitonin] 3.7 ML SOLN, 1 ML NA DAILY Prescribed by: KELSIE PEARSON on 08/05/171821 Patient Home Medication List Home Medication List Reviewed: Yes Review of Systems Review of Systems Constitutional: chills; No diaphoresis; fever, malaise, weakness EENTM: No ear pain, No eye pain Respiratory: cough; No hemoptysis, No orthopnea; phlegm, short of breath, wheezing Cardiovascular: see HPI, chest pain; No edema, No Hx of Intervention Gastrointestinal: No abdominal pain, No constipation, No diarrhea, No nausea Genitourinary: No discharge, No dysuria Musculoskeletal: No back pain, No joint pain Skin: No pruritus, No rash Past Pvpfvod-Qzhqeq-Pdpgas Hx Patient Social History Alcohol Use: Denies Use Recreational Drug Use: No Smoking Status: Current Everyday Smoker Type Used: Cigarettes 2nd Hand Smoke Exposure: Yes Recent Hopitalizations: No Immunizations Up To Date Tetanus Booster (TDap): Unknown Date of Pneumonia Vaccine: Dec 15, 2013 Date of Influenza Vaccine: Dec 12, 2016 Seasonal Allergies Seasonal Allergies: No Past Medical History Surgeries: Yes Abdominal, Breast, Gallbladder, Hysterectomy, Orthopedic, Rectal, Tonsillectomy , Vascular Surgery Respiratory: Yes (COPD--O2 AT 3L/NC CONTINUOUSLY) COPD Currently Using CPAP: No Currently Using BIPAP: No Cardiac: Yes (CAROTID DISEASE; PERIPHERAL VASCULAR DISEASE--STENTS IN LEG, PER PT; CHF) Coronary Artery Disease, High Cholesterol, Hypertension, Peripheral Vascular Neurological: Yes (LEFT SIDE WEAKNESS--LAST TIA 01/2016) Seizure Disorder, Stroke, TIA 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 Disorders: No 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, 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 Sexually Transmitted Disease: No HIV/AIDS: No Genitourinary: No Gastrointestinal: Yes (ESPHAGEAL STRICTURE) Abdominal Hernia, Gastroesophageal Reflux, Chronic Constipation, Hemorrhoids, Polyps, Hiatal Hernia Musculoskeletal: Yes (CHRONIC GENERALIZED PAIN , FX RIGHT HIP 09/09/15; LEFT HIP FX 05/2016) Arthritis, Fibromyalgia, Chronic Back Pain, Fractures Endocrine: No HEENT: Yes Glaucoma Hearing Impairment: Denies Cancer: Yes Breast Did You Recieve Any Treatments: Yes What Type of Treatment Did You: Surgical Intervention Psychosocial: Yes ("SEVERE ANXIETY" PER PT) Anxiety Integumentary: No Recent Skin Changes Blood Disorders: Yes (ANEMIA) Adverse Reaction/Blood Tranf: No Family Medical History Alcoholism 19 MOTHER, Onset:20's - 25 Aphasia 19 MOTHER, Onset:40's - 50 Asthma 19 FATHER, Onset:Unknown Congenital disease Son, Onset:Pre- Diabetes mellitus G8 SISTER, Onset:60 years & older FH: ovarian cancer G8 SISTER, Onset:Unknown FHx: stomach cancer 19 MOTHER, Onset:60 years & older Glaucoma Grandaughter, Onset:Unknown Hypertension 19 MOTHER, Onset:Unknown Infertility G8 SISTER, Onset:Pre- Tuberculosis G8 SISTER, Onset:30's - 40 No Family History of: AIDS Abdominal aortic aneurysm Nahum's disease Alzheimer's disease Cancer of mouth Cardiovascular disease Cataracts Colon cancer Completed stroke Congenital heart disease Coronary thrombosis Cystic fibrosis Deafness or hearing loss Dementia Drug abuse Dysphasia Fibrocystic disease of breast Gastroenteritis Gout Headache disorder Hypercholesterolemia Kidney disease Myocardial infarction Neoplasm Not obtainable due to adoption Osteoporosis Parkinson's disease Prostate cancer Psychosocial problem Respiratory disorder Seizure disorder Severe allergy Thyroid disease Visual disorder Cancer, Diabetes Physical Exam-Suspected Sepsis Physical Exam Vital Signs Vital Signs - First Documented 11/17/17 11/17/17 07:48 07:50 Temp 101.8 Pulse 120 Resp 18 B/P (MAP) 130/69 (89) Pulse Ox 88 O2 Delivery Room Air O2 Flow Rate 2.00 Capillary Refill : Height, Weight, BMI Height: 5'6.00" Weight: 175lbs. 5.0oz. 79.363138pw; 28.3 BMI Method:Estimated General Appearance: WD/WN, Mild Distress Eyes: Bilateral Eye Normal Inspection, Bilateral Eye PERRL, Bilateral Eye EOMI HEENT: PERRL/EOMI, TMs Normal, Normal ENT Inspection, Pharynx Normal; No Moist Mucous Membranes Neck: Full Range of Motion, Normal Inspection Respiratory: No Chest Non Tender; Rales (left base), Rhonci (left side), Wheezing (bilateral) Cardiovascular: Regular Rate, Rhythm, Normal Peripheral Pulses Gastrointestinal: Normal Bowel Sounds, Non Tender, Soft, Other (large incisional hernia easily reducible) Extremity: Normal Capillary Refill, Normal Inspection, Non Tender, No Pedal Edema Neurologic/Psychiatric: Alert, Oriented x3 Skin: normal color, warm/dry Focused Exam Lactate Level 11/17/17 08:00: Lactic Acid Level 0.84 Lactic Acid Level Laboratory Tests Test 11/17/17 08:00 Lactic Acid Level 0.84 MMOL/L (0.50-2.00) Progress/Results/Core Measures Suspected Sepsis SIRS Temperature: Pulse: Respiratory Rate: Laboratory Tests 11/17/17 08:00: White Blood Count 9.7 Blood Pressure / Mean: 11/17/17 08:00: Lactic Acid Level 0.84 Laboratory Tests 11/17/17 08:00: Creatinine 1.31H, INR Comment 1.1, Platelet Count 258, Total Bilirubin 0.3 Results/Orders Lab Results Laboratory Tests Test 11/17/17 08:00 11/17/17 08:45 Range/Units White Blood Count 9.7 4.3-11.0 10^3/uL Red Blood Count 3.54 L 4.35-5.85 10^6/uL Hemoglobin 10.2 L 11.5-16.0 G/DL Hematocrit 31 L 35-52 % Mean Corpuscular Volume 88 80-99 FL Mean Corpuscular Hemoglobin 29 25-34 PG Mean Corpuscular Hemoglobin Concent 33 32-36 G/DL Red Cell Distribution Width 14.9 H 10.0-14.5 % Platelet Count 258 130-400 10^3/uL Mean Platelet Volume 9.4 7.4-10.4 FL Neutrophils (%) (Auto) 77 H 42-75 % Lymphocytes (%) (Auto) 8 L 12-44 % Monocytes (%) (Auto) 9 0-12 % Eosinophils (%) (Auto) 6 0-10 % Basophils (%) (Auto) 0 0-10 % Neutrophils # (Auto) 7.4 1.8-7.8 X 10^3 Lymphocytes # (Auto) 0.8 L 1.0-4.0 X 10^3 Monocytes # (Auto) 0.9 0.0-1.0 X 10^3 Eosinophils # (Auto) 0.5 H 0.0-0.3 10^3/uL Basophils # (Auto) 0.0 0.0-0.1 10^3/uL Prothrombin Time 13.9 12.2-14.7 SEC INR Comment 1.1 0.8-1.4 Activated Partial Thromboplast Time 35 24-35 SEC Sodium Level 138 135-145 MMOL/L Potassium Level 4.1 3.6-5.0 MMOL/L Chloride Level 101 98-107 MMOL/L Carbon Dioxide Level 23 21-32 MMOL/L Anion Gap 14 5-14 MMOL/L Blood Urea Nitrogen 16 7-18 MG/DL Creatinine 1.31 H 0.60-1.30 MG/DL Estimat Glomerular Filtration Rate 40 BUN/Creatinine Ratio 12 Glucose Level 118 H 70-105 MG/DL Lactic Acid Level 0.84 0.50-2.00 MMOL/L Calcium Level 10.4 H 8.5-10.1 MG/DL Corrected Calcium 10.3 H 8.5-10.1 MG/DL Total Bilirubin 0.3 0.1-1.0 MG/DL Aspartate Amino Transf (AST/SGOT) 12 5-34 U/L Alanine Aminotransferase (ALT/SGPT) 11 0-55 U/L Alkaline Phosphatase 95 40-136 U/L Troponin I < 0.30 <0.30 NG/ML B-Type Natriuretic Peptide 204.7 H <100.0 PG/ML Total Protein 7.4 6.4-8.2 GM/DL Albumin 4.1 3.2-4.5 GM/DL Urine Color YELLOW Urine Clarity CLEAR Urine pH 7 5-9 Urine Specific [place] 1.010 L 1.016-1.022 Urine Protein NEGATIVE NEGATIVE Urine Glucose (UA) NEGATIVE NEGATIVE Urine Ketones NEGATIVE NEGATIVE Urine Nitrite NEGATIVE NEGATIVE Urine Bilirubin NEGATIVE NEGATIVE Urine Urobilinogen NORMAL NORMAL MG/DL Urine Leukocyte Esterase NEGATIVE NEGATIVE Urine RBC (Auto) NEGATIVE NEGATIVE Urine RBC NONE /HPF Urine WBC RARE /HPF Urine Crystals NONE /LPF Urine Bacteria TRACE /HPF Urine Casts NONE /LPF Urine Mucus NEGATIVE /LPF Urine Culture Indicated NO My Orders Orders - MIHCAEL SMITH Cbc With Automated Diff (11/17/17 07:56) Comprehensive Metabolic Panel (11/17/17 07:56) Blood Culture (11/17/17 07:56) Sputum Culture (11/17/17 07:56) Urinalysis (11/17/17 07:56) Urine Culture (11/17/17 07:56) Protime With Inr (11/17/17 07:56) Partial Thromboplastin Time (11/17/17 07:56) Chest 1 View, Ap/Pa Only (11/17/17 07:56) Acetaminophen Tablet (Tylenol Tablet) (11/17/17 08:00) Saline Lock/Iv-Start (11/17/17 07:56) Saline Lock/Iv-Start (11/17/17 07:56) Ekg Tracing (11/17/17 07:56) Troponin I (11/17/17 07:56) Vital Signs Adult Sepsis Patie Q15M (11/17/17 07:56) O2 (11/17/17 07:56) Remove Rings In Anticipation O (11/17/17 07:56) Lactic Acid Analyzer (11/17/17 07:56) Ns Iv 1000 Ml (Sodium Chloride 0.9%) (11/17/17 08:00) Ceftriaxone For Iv Use (Rocephin For I (11/17/17 08:00) Albuterol/Ipra Inhalation Soln (Duoneb I (11/17/17 08:00) Svn Small Volume Nebulizer (11/17/17 07:56) Albuterol/Ipra Inhalation Soln (Duoneb I (11/17/17 07:55) BNP (11/17/17 08:28) Lorazepam Tablet (Ativan Tablet) (11/17/17 10:15) Medications Given in ED Current Medications Medications Dose Ordered Sig/Ankita Route Start Time Stop Time Status Last Admin Dose Admin Acetaminophen 1,000 mg ONCE PRN PO 11/17/17 08:00 11/17/17 08:48 DC 11/17/17 08:34 1,000 MG Albuterol/ Ipratropium 3 ml ONCE ONCE INH 11/17/17 08:00 11/17/17 08:01 DC 11/17/17 08:03 3 ML Ceftriaxone Sodium 1000 mg/ Sodium Chloride 60 ml @ 100 mls/hr ONCE ONCE IV 11/17/17 08:00 11/17/17 08:35 DC 11/17/17 08:48 100 MLS/HR Sodium Chloride 1,500 ml @ 1,500 mls/hr ONCE ONCE IV 11/17/17 08:00 11/17/17 08:59 DC 11/17/17 08:48 1,500 MLS/HR Vital Signs/I&O 11/17/17 11/17/17 11/17/17 11/17/17 07:48 07:50 08:07 09:30 Temp 101.8 100.8 Pulse 120 Resp 18 B/P (MAP) 130/69 (89) Pulse Ox 88 89 95 O2 Delivery Room Air Nasal Cannula Nasal Cannula O2 Flow Rate 2.00 2.00 11/17/17 10:41 Temp 99.0 Pulse 102 Resp 16 B/P (MAP) 119/96 Pulse Ox 96 O2 Delivery Nasal Cannula O2 Flow Rate 2.00 Capillary Refill : Progress Note #1: Time: 08:23 Progress Note COPD versus pneumonia. She has a history of UTI on Bactrim originally and then was switched on the to Macrobid. They did not have the urinalysis or urine culture here. We'll do a septic workup given her fever and tachycardia of 1:15. Give her breathing treatment which resolved her wheezes but her rhonchus is still heard. Chest x-ray and labs and urine. May have to do a straight catheter to get a clean specimen. We'll start with Rocephin which would cover bladder as well as pneumonia. Progress Note #2: Time: 08:49 Progress Note Discussed the x-ray with the patient and subsequent resolution of right lung findings with new findings on the left side could be infiltrate as well as a possible not a new nodule in the left midlung and she agrees to do a CT scan now. Her creatinine is a little elevated probably consistent with her dehydration but is not rising to the level of acute kidney injury. Her hemoglobin is stable and the 1 point increase is probably due to hemoconcentration due to her dehydration on clinical exam. We will obtain a urine specimen by straight catheter. ECG Initial ECG Impression Date: Nov 17, 2017 Initial ECG Impression Time: 08:10 Initial ECG Rate: 114 Initial ECG Rhythm: S.Tach Initial ECG Intervals: Normal Initial ECG Impression: Nonspecific Changes Comment Sinus tachycardia. There is a 2 blocks of depression on the ST segment V5 with less than one block with ST depression in leads V4 and V6. May indicate some lateral strain. We'll obtain a troponin. Diagnostic Imaging Diagonstic Imaging: Xray Plain Films/CT/US/NM/MRI: chest Comments Subsequent resolution of right basilar infiltrate and effusion seen on April 2017 2 view x-ray. Some increased left hilar opacity that may represent an infiltrate. [place] NAME: JUDITH ROMEO [facility] REC#: [id number] PT STATUS: REG ER : 1945 PHYSICIAN: MICHAEL SMITH MD ADMIT DATE: 11/17/17/ER Draft Date of Exam:11/17/17 CHEST 1 VIEW, AP/PA ONLY EXAMINATION: Chest radiograph, portable AP view. DATE: November 17, 2017 at 0823 hours. INDICATION: 72-year-old female, cough and fever. COMPARISON: May 14, 2017. FINDINGS: Stable overall appearance of the cardiomediastinal silhouette. There are aortic calcifications. There is no identified pneumothorax. There are bilateral predominantly interstitial opacities with somewhat linear opacities in the right parahilar region and right lung base which are grossly unchanged. There are new streaky opacities in the left perihilar region and left lung base. There is a nodular opacity overlying the left midlung which is not seen previously and measures approximately 1.7 cm in size. IMPRESSION: 1. New nonspecific streaky opacities in the left perihilar region and left lung base which may reflect atelectasis and/or infiltrates. 2. Grossly unchanged streaky opacities in the right parahilar region and right lower lobe with mild bilateral interstitial opacities. 3. New nodular opacity overlying the left midlung measuring 1.7 cm in size. Dedicated CT chest would be recommended for further assessment. Dictated on workstation # [id number] Dict: 11/17/17825 Trans: 11/17/17 0831 [facility] [id number] Interpreted by: JUDE CASTLE MD Electronically signed by: Reviewed: Reviewed by Me Departure Communication (Admissions) Time/Spoke to Admitting Phy: 09:50 Dr. Shin agrees to take the patient and agrees with antibiotic selection and medical floor. Impression Primary Impression: Pneumonia involving left lung Qualified Codes: J18.1 - Lobar pneumonia, unspecified organism Additional Impressions: Sepsis Qualified Codes: A41.9 - Sepsis, unspecified organism History of COPD Disposition: ADMITTED INPATIENT Condition: Improved Admissions Decision to Admit Reason: Admit from ER (General) Decision to Admit/Date: Nov 17, 2017 Time/Decision to Admit Time: 09:50 Departure-Patient Inst. Referrals: KELSIE PEARSON DO (PCP/Family) Primary Care Physician Copy Copies To 1: KELSIE PEARSON TITUS J Nov 17, 2017 08:16
[2017-11-17] MEDS ORDERED: NEBI5TAB8 PO (08:24)
[2017-11-17] MEDS ORDERED: NITR100C10 PO (08:24)
--- NOTE | 2017-11-17 08:32 | Diagnostic Imaging Report ---
EXAMINATION: Chest radiograph, portable AP view. DATE: November 17, 2017 at 0823 hours. INDICATION: 72-year-old female, cough and fever. COMPARISON: May 14, 2017. FINDINGS: Stable overall appearance of the cardiomediastinal silhouette. There are aortic calcifications. There is no identified pneumothorax. There are bilateral predominantly interstitial opacities with somewhat linear opacities in the right parahilar region and right lung base which are grossly unchanged. There are new streaky opacities in the left perihilar region and left lung base. There is a nodular opacity overlying the left midlung which is not seen previously and measures approximately 1.7 cm in size. IMPRESSION: 1. New nonspecific streaky opacities in the left perihilar region and left lung base which may reflect atelectasis and/or infiltrates. 2. Grossly unchanged streaky opacities in the right parahilar region and right lower lobe with mild bilateral interstitial opacities. 3. New nodular opacity overlying the left midlung measuring 1.7 cm in size. Dedicated CT chest would be recommended for further assessment. Dictated by: Dictated on workstation # [id number]
[2017-11-17 08:34] LABS: ALANINE AMINOTRANSFERASE 11 U/L (0-55); ALBUMIN 4.1 GM/DL (3.2-4.5); ALKALINE PHOSPHATASE 95 U/L (40-136); BILIRUBIN,TOTAL 0.3 MG/DL (0.1-1.0); BUN/CREATININE RATIO 12; CALCIUM 10.4 MG/DL (8.5-10.1); CARBON DIOXIDE 23 MMOL/L (21-32); CHLORIDE 101 MMOL/L (98-107); CREATININE SERUM 1.31 MG/DL (0.60-1.30); GFR ESTIMATED 40; GLUCOSE 118 MG/DL (70-105); POTASSIUM 4.1 MMOL/L (3.6-5.0); SODIUM 138 MMOL/L (135-145); TOTAL PROTEIN 7.4 GM/DL (6.4-8.2)
[2017-11-17 08:36] LABS: INR 1.1 (0.8-1.4); PROTHROMBIN TIME PATIENT 13.9 SEC (12.2-14.7)
[2017-11-17 08:38] LABS: BASOPHILS % (AUTO) 0 % (0-10); EOSINOPHILS # (AUTO) 0.5 10^3/uL (0.0-0.3); EOSINOPHILS % (AUTO) 6 % (0-10); HEMATOCRIT 31 % (35-52); HEMOGLOBIN 10.2 G/DL (11.5-16.0); LYMPHOCYTES # (AUTO) 0.8 X 10^3 (1.0-4.0); LYMPHOCYTES % (AUTO) 8 % (12-44); MEAN CORPUSCULAR HEMOGLOBIN 29 PG (25-34); MEAN CORPUSCULAR HGB CONC 33 G/DL (32-36); MEAN CORPUSCULAR VOLUME 88 FL (80-99); MEAN PLATELET VOLUME 9.4 FL (7.4-10.4); MONOCYTES # (AUTO) 0.9 X 10^3 (0.0-1.0); MONOCYTES % (AUTO) 9 % (0-12); NEUTROPHILS # (AUTO) 7.4 X 10^3 (1.8-7.8); NEUTROPHILS % (AUTO) 77 % (42-75); PLATELET COUNT 258 10^3/uL (130-400); RED BLOOD COUNT 3.54 10^6/uL (4.35-5.85); RED CELL DISTRIBUTION WIDTH 14.9 % (10.0-14.5); WHITE BLOOD COUNT 9.7 10^3/uL (4.3-11.0)
[2017-11-17 09:04] LABS: BILIRUBIN,URINE NEGATIVE (NEGATIVE); CLARITY,URINE CLEAR; COLOR,URINE YELLOW; GLUCOSE, URINE (UA) NEGATIVE (NEGATIVE); KETONES,URINE NEGATIVE (NEGATIVE); LEUKOCYTE ESTERASE ,URINE NEGATIVE (NEGATIVE); NITRITE,URINE NEGATIVE (NEGATIVE); PH,URINE 7 (5-9); PROTEIN,URINE NEGATIVE (NEGATIVE); UROBILINOGEN,URINE NORMAL (NORMAL)
[2017-11-17 09:05] LABS: BACTERIA,URINE TRACE /HPF; WBC,URINE RARE /HPF
[2017-11-17] MEDS ORDERED: LORazepam 1 MG (ATIVAN) TAB PO ONE (10:15)
[2017-11-17 11:10] VITALS: BP 109/60
[2017-11-17] MEDS ORDERED: AZITHROMYCIN 500 MG/NS 250 ML IVPB IV NR ×2 (11:11)
[2017-11-17] MEDS ORDERED: ONDANSETRON 4 MG/2 ML (SDV) Z0FRAN IVP PRN (11:15)
[2017-11-17] MEDS ORDERED: RT-ALBUTEROL/IPRATROPIUM 3 ML (DUONEB) VIAL INH PRN (11:30)
[2017-11-17 12:00] VITALS: BP 128/60
[2017-11-17] MEDS: 1/2 NS W/KCL 20 MEQ/L 1,000 ML IV SCH ×2 (12:25→21:17)
[2017-11-17] MEDS: NICOTINE 14 MG (NICODERM) PATCH TD SCH (12:26)
--- NOTE | 2017-11-17 13:40 | History & Physical-Hospitalist ---
History of Present Illness HPI/Chief Complaint The patient is a 72-year-old white female who presented to the emergency room this morning with a chief complaint of cough, shortness of breath and general malaise. She has a past history of COPD. She stated that her cough was nonproductive. She also reported that for the past 2 months she felt rather poorly because of general loss of energy and repeated coughing. There apparently is a past history of heart failure. She had not noted any edema or weight gain. She takes Lasix 40 mg daily. She continues to smoke. Her temperature at presentation to the emergency room was 101.8. She denies sweats or chills. She was unable to give me information about the etiology of her past congestive heart failure. Date Seen 11/17/17 Time Seen by Provider: 13:31 Attending Physician Donta Camarena MD PCP Betsy Coronado DO Referring Physician Date of Admission Nov 17, 2017 at 09:40 Home Medications & Allergies Home Medications Reviewed patient Home Medication Reconciliation performed by pharmacy medication reconciliations computer aided design technician and/or nursing. Patients Allergies have been reviewed. Allergies Allergies Coded Allergies Penicillins (Verified Allergy, Unknown, PT HAS RECEIVED ANCEF WITHOUT ISSUE, ) meperidine (Verified Allergy, Unknown, 05/30/14) Past Dkhxcil-Xvgcsl-Vueoug Hx Past Med/Social Hx: Reviewed Nursing Past Med/Soc Hx Patient Social History Alcohol Use: Denies Use Recreational Drug Use: No Smoking Status: Current Everyday Smoker Type Used: Cigarettes 2nd Hand Smoke Exposure: Yes Physical Abuse Screen: No Sexual Abuse: No Recent Foreign Travel: No Contact w/other who traveled: No Recent Hopitalizations: No Recent Infectious Disease Expo: No Immunizations Up To Date Tetanus Booster (TDap): Unknown Date of Pneumonia Vaccine: Dec 15, 2013 Date of Influenza Vaccine: Dec 12, 2016 Seasonal Allergies Seasonal Allergies: No Past Medical History Surgeries: Abdominal, Breast, Gallbladder, Hysterectomy, Orthopedic, Rectal, Tonsillectomy, Vascular Surgery Respiratory: COPD, Sleep Apnea Currently Using CPAP: No Currently Using BIPAP: No Cardiac: Coronary Artery Disease, High Cholesterol, Hypertension, Peripheral Vascular Neurological: Seizure Disorder, Stroke, TIA 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: No Sexually Transmitted Disease: No HIV/AIDS: No Female 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 Disorders: Denies Hysterectomy, Menopausal Gastrointestinal: Abdominal Hernia, Gastroesophageal Reflux, Chronic Constipation, Hemorrhoids, Polyps Musculoskeletal: Arthritis, Fibromyalgia, Chronic Back Pain, Fractures HEENT: Glaucoma Hearing Impairment: Denies Cancer: Breast Did You Recieve Any Treatments: Yes What Type of Treatment Did You: Chemotherapy Psychosocial: Anxiety Skin/Integumentary: Recent Skin Changes History of Blood Disorders: Yes (ANEMIA) Adverse Reaction to Blood Duron: No Family History Alcoholism 19 MOTHER, Onset:20's - 25 Aphasia 19 MOTHER, Onset:40's - 50 Asthma 19 FATHER, Onset:Unknown Congenital disease Son, Onset:Pre- Diabetes mellitus G8 SISTER, Onset:60 years & older FH: ovarian cancer G8 SISTER, Onset:Unknown FHx: stomach cancer 19 MOTHER, Onset:60 years & older Glaucoma Grandaughter, Onset:Unknown Hypertension 19 MOTHER, Onset:Unknown Infertility G8 SISTER, Onset:Pre- Tuberculosis G8 SISTER, Onset:30's - 40 No Family History of: AIDS Abdominal aortic aneurysm Aguada's disease Alzheimer's disease Cancer of mouth Cardiovascular disease Cataracts Colon cancer Completed stroke Congenital heart disease Coronary thrombosis Cystic fibrosis Deafness or hearing loss Dementia Drug abuse Dysphasia Fibrocystic disease of breast Gastroenteritis Gout Headache disorder Hypercholesterolemia Kidney disease Myocardial infarction Neoplasm Not obtainable due to adoption Osteoporosis Parkinson's disease Prostate cancer Psychosocial problem Respiratory disorder Seizure disorder Severe allergy Thyroid disease Visual disorder Cancer, Diabetes Review of Systems Constitutional: see HPI EENTM: no symptoms reported Respiratory: see HPI, cough, dyspnea on exertion, phlegm, short of breath Cardiovascular: no symptoms reported Gastrointestinal: no symptoms reported Genitourinary: no symptoms reported Musculoskeletal: no symptoms reported Skin: no symptoms reported Psychiatric/Neurological: No Symptoms Reported Physical Exam Physical Exam Vital Signs Vital Signs - First Documented 11/17/17 11/17/17 07:48 07:50 Temp 101.8 Pulse 120 Resp 18 B/P (MAP) 130/69 (89) Pulse Ox 88 O2 Delivery Room Air O2 Flow Rate 2.00 Capillary Refill : Less Than 3 Seconds Height, Weight, BMI Height: 5'6.00" Weight: 156lbs. 1.6oz. 70.440200re; 28.3 BMI Method:Estimated General Appearance: Other (elderly appearing white female who was quite drowsy after a dose of Ativan.) HEENT: Normal ENT Inspection Neck: Normal Inspection Respiratory: Decreased Breath Sounds (distant breath sounds. No tachypnea) Cardiovascular: Regular Rate, Rhythm, No Edema, No Gallop, No JVD, No Murmur, Normal Peripheral Pulses Extremity: Normal Capillary Refill, Normal Inspection, Normal Range of Motion, Non Tender, No Calf Tenderness, No Pedal Edema Neurologic/Psychiatric: Alert, Oriented x3, No Motor/Sensory Deficits, Normal Mood/Affect Skin: Normal Color, Warm/Dry Lymphatic: No Adenopathy Comments Chest x-ray showed symmetrical rather chronic changes. There was no evidence of pleural effusion. There was an apparently new nodular finding in the left mid lung field. Results Results/Procedures Labs Laboratory Tests 11/17/17 08:00 Patient resulted labs reviewed. Assessment/Plan Admission Diagnosis Fever and dyspnea favoring a pulmonary process. 2.history of COPD. 3.vague past history of congestive heart failure. 4.tobaccoism. Admission Status: Inpatient Order (span 2 midnights) Reason for Inpatient Admission: IV antibiotics will be required for a period greater than to midnight Assessment and Plan Empiric antibiotic therapy. If creatinine will allow she should have a CT chest with contrast. Clinical Quality Measures DVT/VTE Risk/Contraindication: Risk Factor Score Per Nursin RFS Level Per Nursing on Admit: 4+=Very High DONTA CAMARENA MD Nov 17, 2017 13:40
[2017-11-17] MEDS: RT-ALBUTEROL/IPRATROPIUM 3 ML (DUONEB) VIAL INH SCH ×3 (14:16→23:00)
[2017-11-17 16:02] VITALS: BP 134/63
[2017-11-17 20:04] VITALS: BP 126/56
[2017-11-17] MEDS ORDERED: AMITRIPTYLINE 25 MG (ELAVIL) TAB PO SCH (21:00)
[2017-11-17] MEDS: SERTRALINE 100 MG (ZOLOFT) TAB PO SCH (21:16)
[2017-11-17] MEDS: ATORVASTATIN 10 MG (LIPITOR) TABLET PO SCH (21:16)
[2017-11-17] MEDS: DIVALPROEX EXT RELEASE 250 MG (DEPAKOTE ER) TAB PO SCH (21:17)
[2017-11-18] VITALS: BP 117/55
[2017-11-18] MEDS: 1/2 NS W/KCL 20 MEQ/L 1,000 ML IV SCH ×4 (00:49→23:29)
[2017-11-18] MEDS: RT-ALBUTEROL/IPRATROPIUM 3 ML (DUONEB) VIAL INH SCH ×6 (02:18→21:31)
[2017-11-18] MEDS: oxyCODONE/APAP 5/325MG (PERCOCET 5) TABLET PO PRN ×4 (03:31→23:07)
[2017-11-18 04:00] VITALS: BP 112/55
[2017-11-18 06:03] LABS: BASOPHILS % (AUTO) 0 % (0-10); EOSINOPHILS # (AUTO) 0.5 10^3/uL (0.0-0.3); EOSINOPHILS % (AUTO) 8 % (0-10); HEMATOCRIT 26 % (35-52); HEMOGLOBIN 8.3 G/DL (11.5-16.0); LYMPHOCYTES # (AUTO) 0.9 X 10^3 (1.0-4.0); LYMPHOCYTES % (AUTO) 15 % (12-44); MEAN CORPUSCULAR HEMOGLOBIN 29 PG (25-34); MEAN CORPUSCULAR HGB CONC 32 G/DL (32-36); MEAN CORPUSCULAR VOLUME 91 FL (80-99); MEAN PLATELET VOLUME 9.3 FL (7.4-10.4); MONOCYTES # (AUTO) 0.6 X 10^3 (0.0-1.0); MONOCYTES % (AUTO) 10 % (0-12); NEUTROPHILS # (AUTO) 3.9 X 10^3 (1.8-7.8); NEUTROPHILS % (AUTO) 67 % (42-75); PLATELET COUNT 216 10^3/uL (130-400); RED BLOOD COUNT 2.89 10^6/uL (4.35-5.85); RED CELL DISTRIBUTION WIDTH 14.9 % (10.0-14.5); WHITE BLOOD COUNT 5.8 10^3/uL (4.3-11.0)
[2017-11-18 06:27] LABS: BUN/CREATININE RATIO 12; CALCIUM 9.1 MG/DL (8.5-10.1); CARBON DIOXIDE 19 MMOL/L (21-32); CHLORIDE 110 MMOL/L (98-107); CREATININE SERUM 0.82 MG/DL (0.60-1.30); GFR ESTIMATED > 60; GLUCOSE 96 MG/DL (70-105); POTASSIUM 4.4 MMOL/L (3.6-5.0); SODIUM 137 MMOL/L (135-145)
[2017-11-18] MEDS ORDERED: PANTOPRAZOLE 40 MG (PROTONIX) TAB PO SCH (07:00)
[2017-11-18 08:00] VITALS: BP 138/63
[2017-11-18] MEDS ORDERED: NEBIVOLOL 5 MG TAB (BYSTOLIC) PO SCH (09:00)
[2017-11-18] MEDS ORDERED: LOSA25TA6 PO (09:47)
[2017-11-18] MEDS ORDERED: CELE200C PO (09:47)
[2017-11-18] MEDS ORDERED: L.AC1CAP6 PO (09:48)
[2017-11-18] MEDS: LOSARTAN 50 MG (COZAAR) TAB PO SCH ×2 (09:49→09:51)
[2017-11-18] MEDS: NICOTINE 14 MG (NICODERM) PATCH TD SCH (09:49)
[2017-11-18] MEDS: PATCH REMOVAL TP SCH (09:50)
[2017-11-18] MEDS ORDERED: IOHEXOL 350 MG/ML 100 ML (OMNIPAQUE 350) VIAL IV ONE (10:15)
[2017-11-18 12:00] VITALS: BP 172/77
[2017-11-18] MEDS: cefTRIAXone 1 GM/NS 50 ML IVPB IV SCH ×2 (12:57)
[2017-11-18] MEDS: AZITHROMYCIN 250 MG TAB (ZITHROMAX) PO SCH (12:57)
--- NOTE | 2017-11-18 13:57 | Diagnostic Imaging Report ---
PROCEDURE: CT chest with contrast only. TECHNIQUE: Multiple contiguous axial images were obtained through the chest after administration of intravenous contrast. INDICATION: Abnormal chest x-ray. The study is performed for further evaluation. Correlation is made with a chest radiograph from one day earlier. FINDINGS: No axillary lymphadenopathy is identified. There are mildly prominent mediastinal lymph nodes present. A right paratracheal lymph node demonstrates short axis measurement of 9 mm. No definite hilar mass is seen. There is trace pericardial fluid. There are also trace bilateral pleural effusions. Interstitial markings are somewhat prominent in both lungs, acuity indeterminate. There is some dependent atelectasis or infiltrates in bilateral lower lobes posteriorly. No discrete parenchymal mass, however, is identified to account for the density noted on recent chest x-ray. This density most likely reflects a healing fracture involving the anterior left third rib. The upper abdomen is unremarkable. IMPRESSION: 1. Trace pericardial fluid and bilateral pleural effusions with mild bibasilar infiltrates or atelectasis and generalized interstitial changes, acuity indeterminate. 2. Nonspecific mildly prominent mediastinal lymph node which may be reactive. 3. No pulmonary parenchymal mass is seen. The density noted on recent chest x-ray appears to correlate with callus formation from a healing left anterior third rib fracture. Dictated by: Dictated on workstation # [id number]
[2017-11-18 16:00] VITALS: BP 137/74
--- NOTE | 2017-11-18 18:25 | Progress Note (SOAP) ---
Subjective Date Seen by Provider: Nov 18, 2017 Time Seen by Provider: 08:25 Subjective/Events-last exam Fwup Pneumonia, COPD exacerbation, HTN, Chronic Anemia, GERD, history of CVA. Resting in bed. Focused Exam Lactate Level 11/17/17 08:00: Lactic Acid Level 0.84 Objective Exam Vital Signs Date Time Temp Pulse Resp B/P (MAP) Pulse Ox O2 Delivery O2 Flow Rate FiO2 11/18/17 16:00 98.4 86 18 137/74 (95) 97 Nasal Cannula 2.00 11/18/17 14:23 97 Nasal Cannula 2.00 11/18/17 12:00 99.8 102 22 172/77 (108) 95 Nasal Cannula 2.00 11/18/17 11:25 95 Nasal Cannula 2.00 11/18/17 08:10 98 Nasal Cannula 3.00 11/18/17 08:00 99.2 99 20 138/63 (88) 99 Nasal Cannula 2.00 11/18/17 07:07 94 Nasal Cannula 2.00 11/18/17 04:00 99.2 99 20 112/55 (74) 96 Nasal Cannula 3.00 11/18/17 02:20 90 Room Air 11/18/17 00:00 98.7 101 20 117/55 (75) 98 Nasal Cannula 3.00 11/17/17 23:01 98 Nasal Cannula 3.00 11/17/17 20:04 100.2 104 18 126/56 (79) 94 Nasal Cannula 3.00 11/17/17 20:00 98 Nasal Cannula 3.00 11/17/17 18:54 91 Nasal Cannula 3.00 I & O 11/18/17 07:00 Intake Total 790 ml Output Total 300 ml Balance 490 ml Capillary Refill : Less Than 3 Seconds General Appearance: No Apparent Distress Neck: Supple Respiratory: Decreased Breath Sounds, Rales, Rhonci Cardiovascular: Diastolic Murmur, Systolic Murmur Gastrointestinal: normal bowel sounds, non tender, soft Extremity: Non Tender, No Calf Tenderness, No Pedal Edema Neurologic/Psychiatric: Alert, Oriented x3 Results Lab Laboratory Tests 11/18/17 05:44: White Blood Count 5.8, Red Blood Count 2.89L, Hemoglobin 8.3L, Hematocrit 26L, Mean Corpuscular Volume 91, Mean Corpuscular Hemoglobin 29, Mean Corpuscular Hemoglobin Concent 32, Red Cell Distribution Width 14.9H, Platelet Count 216, Mean Platelet Volume 9.3, Neutrophils (%) (Auto) 67, Lymphocytes (%) (Auto) 15, Monocytes (%) (Auto) 10, Eosinophils (%) (Auto) 8, Basophils (%) (Auto) 0, Neutrophils # (Auto) 3.9, Lymphocytes # (Auto) 0.9L, Monocytes # (Auto) 0.6, Eosinophils # (Auto) 0.5H, Basophils # (Auto) 0.0, Sodium Level 137, Potassium Level 4.4, Chloride Level 110H, Carbon Dioxide Level 19L, Anion Gap 8, Blood Urea Nitrogen 10, Creatinine 0.82, Estimat Glomerular Filtration Rate > 60, BUN/ Creatinine Ratio 12, Glucose Level 96, Calcium Level 9.1 Microbiology 11/17/17 Blood Culture - Preliminary, Resulted No growth 11/17/17 Urine Culture - Final, Complete NO GROWTH Assessment/Plan Assessment/Plan Assess & Plan/Chief Complaint 1. Pneumonia---continue abx 2. COPD exacerbation--continue oxygen, SVNs, add solumedrol 3. Hypertension--restart home meds 4. GERD--restart protonix 5. Acute on Chronic Anemia--monitor H/H 6. Left pulmonary nodule--check CT scan of chest 7. Acute Renal Insufficiency--hydrate and monitor creatinine Clinical Quality Measures DVT/VTE Risk/Contraindication: Risk Factor Score Per Nursin RFS Level Per Nursing on Admit: 4+=Very High KELSIE PEARSON DO Nov 18, 2017 18:25
[2017-11-18] MEDS ORDERED: methylPREDNISolone 40 MG/ML (Solu-MEDROL) VIAL IV NR (18:30)
[2017-11-18] MEDS ORDERED: NON-FORMULARY MEDICATION 1 EA EA (Ondansetron HCl 4 MG) PO PRN (18:30)
[2017-11-18] MEDS ORDERED: NON-FORMULARY MEDICATION 1 EA EA (Polyethylene Glycol 3350 17 GM) PO PRN (18:30)
[2017-11-18] MEDS ORDERED: POLYETHYLENE GLYCOL 17 GM (MIRALAX) PACK PO PRN (18:45)
[2017-11-18] MEDS ORDERED: ONDANSETRON 4 MG (ZOFRAN) ORAL DISSOLVE TAB PO PRN (18:45)
[2017-11-18 20:06] VITALS: BP 123/65
[2017-11-18] MEDS: ATORVASTATIN 10 MG (LIPITOR) TABLET PO SCH (20:29)
[2017-11-18] MEDS: PANTOPRAZOLE 40 MG (PROTONIX) TAB PO SCH (20:29)
[2017-11-18] MEDS: DIVALPROEX EXT RELEASE 250 MG (DEPAKOTE ER) TAB PO SCH (20:29)
[2017-11-18] MEDS: BACLOFEN 10 MG (LIORESAL) TAB PO PRN (20:29)
[2017-11-18] MEDS: NEBIVOLOL 5 MG TAB (BYSTOLIC) PO SCH (20:30)
[2017-11-18] MEDS: SERTRALINE 100 MG (ZOLOFT) TAB PO SCH (20:30)
[2017-11-18] MEDS: FLUTICASONE NASAL SPRAY (FLONASE) 16 GM BTL NS SCH (20:34)
[2017-11-18] MEDS: LATANOPROST 0.005% (XALATAN) OPHTH SOLN 2.5 ML OU SCH (20:36)
[2017-11-18] MEDS ORDERED: DIVALPROEX 250 MG DELAYED RELEASE (DEPAKOTE) TAB PO SCH (21:00)
[2017-11-18] MEDS ORDERED: NON-FORMULARY MEDICATION 1 EA EA (Budesonide/Formoterol Fumarate (Symbicort 160-4.5 Mcg In INH SCH (21:00)
[2017-11-18] MEDS: RT-ADVAIR HFA 115/21 MCG PER PUFF IH SCH (21:31)
[2017-11-18] MEDS: methylPREDNISolone 125 MG (Solu-MEDROL) VIAL IVP SCH (23:45)
[2017-11-19] VITALS: BP 136/61
[2017-11-19] MEDS: RT-ALBUTEROL/IPRATROPIUM 3 ML (DUONEB) VIAL INH SCH ×6 (01:37→22:47)
[2017-11-19 04:00] VITALS: BP 140/65
[2017-11-19 05:53] LABS: BASOPHILS % (AUTO) 0 % (0-10); EOSINOPHILS % (AUTO) 1 % (0-10); HEMATOCRIT 27 % (35-52); HEMOGLOBIN 8.8 G/DL (11.5-16.0); LYMPHOCYTES # (AUTO) 0.3 X 10^3 (1.0-4.0); LYMPHOCYTES % (AUTO) 12 % (12-44); MEAN CORPUSCULAR HEMOGLOBIN 29 PG (25-34); MEAN CORPUSCULAR HGB CONC 32 G/DL (32-36); MEAN CORPUSCULAR VOLUME 90 FL (80-99); MEAN PLATELET VOLUME 9.4 FL (7.4-10.4); MONOCYTES # (AUTO) 0.1 X 10^3 (0.0-1.0); MONOCYTES % (AUTO) 3 % (0-12); NEUTROPHILS # (AUTO) 2.3 X 10^3 (1.8-7.8); NEUTROPHILS % (AUTO) 84 % (42-75); PLATELET COUNT 226 10^3/uL (130-400); RED BLOOD COUNT 3.06 10^6/uL (4.35-5.85); RED CELL DISTRIBUTION WIDTH 14.6 % (10.0-14.5); WHITE BLOOD COUNT 2.7 10^3/uL (4.3-11.0)
[2017-11-19 06:17] LABS: ALANINE AMINOTRANSFERASE 10 U/L (0-55); ALBUMIN 3.5 GM/DL (3.2-4.5); ALKALINE PHOSPHATASE 72 U/L (40-136); BILIRUBIN,TOTAL 0.2 MG/DL (0.1-1.0); BUN/CREATININE RATIO 10; CALCIUM 9.2 MG/DL (8.5-10.1); CARBON DIOXIDE 19 MMOL/L (21-32); CHLORIDE 109 MMOL/L (98-107); CREATININE SERUM 0.83 MG/DL (0.60-1.30); GFR ESTIMATED > 60; GLUCOSE 156 MG/DL (70-105); POTASSIUM 4.8 MMOL/L (3.6-5.0); SODIUM 138 MMOL/L (135-145); TOTAL PROTEIN 6.3 GM/DL (6.4-8.2)
[2017-11-19] MEDS: methylPREDNISolone 125 MG (Solu-MEDROL) VIAL IVP SCH ×2 (06:23→11:28)
[2017-11-19] MEDS: PANTOPRAZOLE 40 MG (PROTONIX) TAB PO SCH ×2 (06:23→20:07)
[2017-11-19] MEDS: KCL 10 MEQ TAB (MICRO K) PO SCH (06:23)
[2017-11-19] MEDS: RT-ADVAIR HFA 115/21 MCG PER PUFF IH SCH ×2 (06:46→19:25)
[2017-11-19 08:00] VITALS: BP 144/65
[2017-11-19] MEDS: SPIRONOLACTONE 25 MG (ALDACTONE) TAB PO SCH (08:21)
[2017-11-19] MEDS: LOSARTAN 25 MG (COZAAR) TAB PO SCH (08:21)
[2017-11-19] MEDS: FLUTICASONE NASAL SPRAY (FLONASE) 16 GM BTL NS SCH ×2 (08:21→20:25)
[2017-11-19] MEDS: FUROSEMIDE 40 MG (LASIX) TAB PO SCH (08:21)
[2017-11-19] MEDS: NICOTINE 14 MG (NICODERM) PATCH TD SCH (08:21)
[2017-11-19] MEDS: LACTOBACILLUS Acidoph/Bulgar (LACTINEX/FLORANEX) TAB PO SCH (08:21)
[2017-11-19] MEDS: PATCH REMOVAL TP SCH (08:22)
[2017-11-19] MEDS: 1/2 NS W/KCL 20 MEQ/L 1,000 ML IV SCH (08:24)
[2017-11-19] MEDS ORDERED: NON-FORMULARY MEDICATION 1 EA EA (Losartan Potassium 25 MG) PO SCH (09:00)
[2017-11-19] MEDS ORDERED: SERTRALINE 100 MG (ZOLOFT) TAB PO SCH (09:00)
[2017-11-19] MEDS ORDERED: NON-FORMULARY MEDICATION 1 EA EA (L.acidoph & Paracasei,B.lactis (Probiotic) 1 CAP) PO SCH (09:00)
[2017-11-19] MEDS: cefTRIAXone 1 GM/NS 50 ML IVPB IV SCH ×2 (10:13)
[2017-11-19] MEDS: AZITHROMYCIN 250 MG TAB (ZITHROMAX) PO SCH (10:14)
[2017-11-19 12:00] VITALS: BP 138/54
--- NOTE | 2017-11-19 12:33 | Progress Note (SOAP) ---
Subjective Date Seen by Provider: Nov 19, 2017 Time Seen by Provider: 12:31 Subjective/Events-last exam Fwup pneumonia, COPD exacerbation, HTN, GERD, Acute on Chronic Anemia. Sitting up in bed. Feels much better--wants to go home. Focused Exam Lactate Level 11/17/17 08:00: Lactic Acid Level 0.84 Objective Exam Vital Signs Date Time Temp Pulse Resp B/P (MAP) Pulse Ox O2 Delivery O2 Flow Rate FiO2 11/19/17 12:00 98.2 92 18 138/54 (82) 94 Nasal Cannula 2.00 11/19/17 10:50 94 Nasal Cannula 2.00 11/19/17 08:00 97.4 90 20 144/65 (91) 98 Nasal Cannula 2.00 11/19/17 08:00 94 Nasal Cannula 2.00 11/19/17 06:46 94 Nasal Cannula 2.00 11/19/17 04:00 99.0 82 20 140/65 (90) 94 11/19/17 01:38 95 Nasal Cannula 2.00 11/19/17 00:00 97.9 86 18 136/61 (86) 93 Nasal Cannula 2.00 11/18/17 20:30 Nasal Cannula 3.00 11/18/17 20:06 98.1 83 18 123/65 (84) 94 Nasal Cannula 2.00 11/18/17 18:32 96 Nasal Cannula 2.00 11/18/17 16:00 98.4 86 18 137/74 (95) 97 Nasal Cannula 2.00 11/18/17 14:23 97 Nasal Cannula 2.00 I & O 11/19/17 07:00 Intake Total 2550 ml Output Total 2570 ml Balance -20 ml Capillary Refill : Less Than 3 Seconds General Appearance: No Apparent Distress Neck: Supple Respiratory: Crackles, Decreased Breath Sounds Gastrointestinal: normal bowel sounds, non tender, soft Extremity: Non Tender, No Calf Tenderness, No Pedal Edema Neurologic/Psychiatric: Alert, Oriented x3 Skin: Warm/Dry Results Lab Laboratory Tests 11/19/17 05:29: White Blood Count 2.7L, Red Blood Count 3.06L, Hemoglobin 8.8L, Hematocrit 27L, Mean Corpuscular Volume 90, Mean Corpuscular Hemoglobin 29, Mean Corpuscular Hemoglobin Concent 32, Red Cell Distribution Width 14.6H, Platelet Count 226, Mean Platelet Volume 9.4, Neutrophils (%) (Auto) 84H, Lymphocytes (%) (Auto) 12 , Monocytes (%) (Auto) 3, Eosinophils (%) (Auto) 1, Basophils (%) (Auto) 0, Neutrophils # (Auto) 2.3, Lymphocytes # (Auto) 0.3L, Monocytes # (Auto) 0.1, Eosinophils # (Auto) 0.0, Basophils # (Auto) 0.0, Sodium Level 138, Potassium Level 4.8, Chloride Level 109H, Carbon Dioxide Level 19L, Anion Gap 10, Blood Urea Nitrogen 8, Creatinine 0.83, Estimat Glomerular Filtration Rate > 60, BUN/ Creatinine Ratio 10, Glucose Level 156H, Calcium Level 9.2, Corrected Calcium 9.6, Total Bilirubin 0.2, Aspartate Amino Transf (AST/SGOT) 12, Alanine Aminotransferase (ALT/SGPT) 10, Alkaline Phosphatase 72, Total Protein 6.3L, Albumin 3.5 Microbiology 11/17/17 Blood Culture - Preliminary, Resulted No growth 11/17/17 Urine Culture - Final, Complete NO GROWTH Assessment/Plan Assessment/Plan Assess & Plan/Chief Complaint 1. Pneumonia---continue abx 2. COPD exacerbation--continue oxygen, SVNs, wean solumedrol 3. Hypertension--back on home meds 4. GERD--on protonix 5. Acute on Chronic Anemia--monitor H/H 6. Left pulmonary nodule--CT scan of chest shows no suspicious mass 7. Acute Renal Insufficiency--improved with hydation Clinical Quality Measures DVT/VTE Risk/Contraindication: Risk Factor Score Per Nursin RFS Level Per Nursing on Admit: 4+=Very High KELSIE PEARSON DO Nov 19, 2017 12:33 pm
[2017-11-19 16:00] VITALS: BP 151/69
[2017-11-19 19:13] VITALS: BP 153/60
[2017-11-19] MEDS: SERTRALINE 100 MG (ZOLOFT) TAB PO SCH (20:07)
[2017-11-19] MEDS: DIVALPROEX EXT RELEASE 250 MG (DEPAKOTE ER) TAB PO SCH (20:07)
[2017-11-19] MEDS: methylPREDNISolone 40 MG/ML (Solu-MEDROL) VIAL IV SCH (20:07)
[2017-11-19] MEDS: ATORVASTATIN 10 MG (LIPITOR) TABLET PO SCH (20:07)
[2017-11-19] MEDS: NEBIVOLOL 5 MG TAB (BYSTOLIC) PO SCH (20:07)
[2017-11-19] MEDS: oxyCODONE/APAP 5/325MG (PERCOCET 5) TABLET PO PRN (20:21)
[2017-11-19] MEDS: BACLOFEN 10 MG (LIORESAL) TAB PO PRN (20:21)
[2017-11-19] MEDS: LATANOPROST 0.005% (XALATAN) OPHTH SOLN 2.5 ML OU SCH (20:25)
[2017-11-19] MEDS ORDERED: methylPREDNISolone 125 MG (Solu-MEDROL) VIAL IVP SCH (21:00)
[2017-11-20 00:10] VITALS: BP 134/63
[2017-11-20] MEDS ORDERED: KETOROLAC 15 MG/ML VIAL IVP ONE (00:15)
[2017-11-20] MEDS ORDERED: KETOROLAC 15 MG/ML VIAL ONE (00:27)
[2017-11-20] MEDS: oxyCODONE/APAP 5/325MG (PERCOCET 5) TABLET PO PRN ×2 (01:25→05:38)
[2017-11-20] MEDS: RT-ALBUTEROL/IPRATROPIUM 3 ML (DUONEB) VIAL INH SCH ×2 (02:31→06:55)
[2017-11-20 04:47] VITALS: BP 135/63
[2017-11-20] MEDS: KCL 10 MEQ TAB (MICRO K) PO SCH (05:38)
[2017-11-20] MEDS: PANTOPRAZOLE 40 MG (PROTONIX) TAB PO SCH (05:38)
[2017-11-20 06:11] LABS: BASOPHILS % (AUTO) 0 % (0-10); EOSINOPHILS % (AUTO) 0 % (0-10); HEMATOCRIT 25 % (35-52); HEMOGLOBIN 8.2 G/DL (11.5-16.0); LYMPHOCYTES # (AUTO) 0.8 X 10^3 (1.0-4.0); LYMPHOCYTES % (AUTO) 12 % (12-44); MEAN CORPUSCULAR HEMOGLOBIN 29 PG (25-34); MEAN CORPUSCULAR HGB CONC 32 G/DL (32-36); MEAN CORPUSCULAR VOLUME 89 FL (80-99); MEAN PLATELET VOLUME 9.1 FL (7.4-10.4); MONOCYTES # (AUTO) 0.6 X 10^3 (0.0-1.0); MONOCYTES % (AUTO) 10 % (0-12); NEUTROPHILS # (AUTO) 4.9 X 10^3 (1.8-7.8); NEUTROPHILS % (AUTO) 78 % (42-75); PLATELET COUNT 262 10^3/uL (130-400); RED BLOOD COUNT 2.85 10^6/uL (4.35-5.85); RED CELL DISTRIBUTION WIDTH 14.5 % (10.0-14.5); WHITE BLOOD COUNT 6.3 10^3/uL (4.3-11.0)
[2017-11-20 06:35] LABS: CALCIUM 8.9 MG/DL (8.5-10.1); CREATININE SERUM 1.13 MG/DL (0.60-1.30); POTASSIUM 4.4 MMOL/L (3.6-5.0)
[2017-11-20] MEDS: RT-ADVAIR HFA 115/21 MCG PER PUFF IH SCH (06:55)
[2017-11-20 08:12] VITALS: BP 133/61
[2017-11-20] MEDS: NICOTINE 14 MG (NICODERM) PATCH TD SCH (08:12)
[2017-11-20] MEDS: LOSARTAN 25 MG (COZAAR) TAB PO SCH (08:12)
[2017-11-20] MEDS: SPIRONOLACTONE 25 MG (ALDACTONE) TAB PO SCH (08:13)
[2017-11-20] MEDS: FUROSEMIDE 40 MG (LASIX) TAB PO SCH (08:13)
[2017-11-20] MEDS: PATCH REMOVAL TP SCH (08:13)
[2017-11-20] MEDS: methylPREDNISolone 40 MG/ML (Solu-MEDROL) VIAL IV SCH (08:13)
[2017-11-20] MEDS: LACTOBACILLUS Acidoph/Bulgar (LACTINEX/FLORANEX) TAB PO SCH (08:13)
[2017-11-20] MEDS: FLUTICASONE NASAL SPRAY (FLONASE) 16 GM BTL NS SCH (08:13)
[2017-11-20] MEDS: cefTRIAXone 1 GM/NS 50 ML IVPB IV SCH ×2 (11:44)
[2017-11-20] MEDS: AZITHROMYCIN 250 MG TAB (ZITHROMAX) PO SCH (11:44)
[2017-11-20] MEDS ORDERED: CEFD300C3 PO (12:45)
[2017-11-20] MEDS ORDERED: AZIT250T12 PO (12:45)
[2017-11-20] MEDS ORDERED: PRD20T PO (12:45)
[2017-11-20 12:51] VITALS: BP 163/72
--- NOTE | 2017-11-20 12:52 | Discharge Inst-Simple/Standard ---
Discharge Inst-Standard Patient Instructions/Follow Up Plan of Care/Instructions/FU: Fwup 1 week Activity as Tolerated: Yes Discharge Diet: Cardiac Diet KELSIE PEARSON DO Nov 20, 2017 12:52 pm
--- NOTE | 2017-12-03 20:14 | Discharge Summary ---
Diagnosis/Chief Complaint Date of Admission Nov 17, 2017 at 09:40 Date of Discharge Nov 20, 2017 at 15:09 Discharge Date: Nov 20, 2017 Discharge Diagnosis 1. Pneumonia---improved 2. COPD exacerbation--improved 3. Hypertension--stable 4. GERD--stable on protonix 5. Acute on Chronic Anemia--stable H/H 6. Left pulmonary nodule--CT scan of chest shows no suspicious mass 7. Acute Renal Insufficiency--improved with hydation Discharge Summary Hospital Course Hospital Course This is a 72 year old female with known COPD and ongoing tobacco abuse who presented with cough, dyspnea and wheezing. She was found to have pneumonia and acute exacerbation of COPD. She was admitted and started on rocephin and zithromax as well as oxygen and SVNs with duoneb. The following day, IV solumedrol was added due to ongoing shortness of air and wheezing. By the following day, she felt much better and her lung aeration was improved with decreased wheezing. She was then weaned from the solumedrol and did well with no increase in shortness of air and no worsening wheezing. She was anxious to go home. Her hemoglobin did drop during her hospital stay but stabilized at 8.2 by discharge. She also had renal insufficiency on admit with a creatinine of 1.3 but this improved after hydration and was normal at 1.13 on discharge. I did correctional substance abuse counselor on the importance of smoking cessation on discharge and that if she resumed smoking that she may worsen and require readmission. She will followup with me in my office in 1 week. Procedures None. Discharge Physical Examination Allergies: Coded Allergies: Penicillins (Verified Allergy, Unknown, PT HAS RECEIVED ANCEF WITHOUT ISSUE, 05/30/14) meperidine (Verified Allergy, Unknown, 05/30/14) General Appearance: Alert, Oriented X3, Cooperative, No Acute Distress Respiratory: Other (decreased aeration) Cardiovascular: Regular Rate Extremities: No Clubbing, No Cyanosis, No Edema Neuro: Other (weakness) Psych/Mental Status: Mental Status NL Discharge Home Medications Reviewed and agree with Discharge Medication list on patient's Discharge Instruction sheet Instructions to Patient/Family Please see electronic discharge instructions given to patient. Clinical Quality Measures DVT/VTE Risk/Contraindication: Risk Factor Score Per Nursin RFS Level Per Nursing on Admit: 4+=Very High KELSIE PEARSON DO Dec 03, 2017 20:14
== END 2017-11-20 15:09 | disposition home or self-care (01) | DRG 190 ==
LOC: EDUNIT# 07:44 → ER 07:46 → 4TH 09:40
PROVIDERS: ADMIT Internal Medicine; ATTEND Internal Medicine
DX: J44.0 Chronic obstructive pulmonary disease with (acute) lower respiratory infection (principal); J18.9 Pneumonia, unspecified organism; J44.1 Chronic obstructive pulmonary disease with (acute) exacerbation; N39.0 Urinary tract infection, site not specified; I11.0 Hypertensive heart disease with heart failure; I50.9 Heart failure, unspecified; I25.10 Atherosclerotic heart disease of native coronary artery without angina pectoris; F17.210 Nicotine dependence, cigarettes, uncomplicated; K21.9 Gastro-esophageal reflux disease without esophagitis; G47.30 Sleep apnea, unspecified; E78.00 Pure hypercholesterolemia, unspecified; G40.909 Epilepsy, unspecified, not intractable, without status epilepticus; M79.7 Fibromyalgia; D64.9 Anemia, unspecified; N28.9 Disorder of kidney and ureter, unspecified; R91.1 Solitary pulmonary nodule; Z85.3 Personal history of malignant neoplasm of breast; Z86.73 Personal history of transient ischemic attack (TIA), and cerebral infarction without residual deficits
CPT/HCPCS: 36415; 51701; 71045; 71260; 80048; 80053; 81000; 83605; 83880; 84484; 85025; 85610; 85730; 87040; 87088; 93005; 94640; 94760; 96361; 96365

== ENCOUNTER 2017-11-26 09:52 | Day surgery (SDC) | payer MEDICARE, MEDICAID ==
[2017-11-26] VITALS (11 sets, daily range): BP systolic 124–161; BP diastolic 50–67
[~2017-11-26] VITALS: Ht 172.7 cm; Wt 70.3 kg
[~2017-11-26 09:52] MED LIST changes: +AZIT250T12 PO; +CEFD300C3 PO; +CELE200C PO; +LOSA25TA6 PO; +NITR100C10 PO
[2017-11-26] MEDS ORDERED: LIDOCAINE 1% INJ 20 ML 20 ML VIAL ONE (09:55)
[2017-11-26] MEDS ORDERED: NS IV 1000 ML 1,000 ML IV SCH ×2 (10:00→13:30)
[2017-11-26] MEDS ORDERED: HEParin 1000 UNIT/ML (10ML VIAL) FOR BOLUS ONE (10:23)
[2017-11-26 10:40] LABS: HEMOGLOBIN 10.8 G/DL (11.5-16.0); MEAN PLATELET VOLUME 8.7 FL (7.4-10.4); RED BLOOD COUNT 3.76 10^6/uL (4.35-5.85); RED CELL DISTRIBUTION WIDTH 15.1 % (10.0-14.5); WHITE BLOOD COUNT 8.9 10^3/uL (4.3-11.0)
--- NOTE | 2017-11-26 10:44 | Diagnostic Imaging Report ---
Chest, one view at 10:27. Indication: Peripheral angioplasty, peripheral vascular disease. The heart size is within normal limits and stable when compared to 11/17/2017. The central pulmonary vascularity and interstitial densities in both lungs do not seem nearly as prominent as noted the prior exam of 11/17/2017. At this time there is no evidence for failure, pneumonia or for pleural effusion. The nodular density overlying the left midlung seen previously is again evident and no different. The CT chest exam of 11/18/2017 suggested that this was related to calcification from a healing fracture of the left third rib. The mediastinum is not widened. The osseous structures are intact. Impression: The appearance of the chest has improved as both lungs are much better aerated. There is no evidence for active disease at this time. Dictated by: Dictated on workstation # [id number]
[2017-11-26 11:06] LABS: ALBUMIN 4.1 GM/DL (3.2-4.5); BILIRUBIN,TOTAL 0.3 MG/DL (0.1-1.0); CALCIUM 9.5 MG/DL (8.5-10.1); CREATININE SERUM 0.99 MG/DL (0.60-1.30); POTASSIUM 3.8 MMOL/L (3.6-5.0)
[2017-11-26] MEDS ORDERED: CALC-140 PO (11:10)
[2017-11-26] MEDS ORDERED: MAGN400T39 PO (11:11)
[2017-11-26] MEDS ORDERED: MIDAZOLAM 5 MG/5 ML (VERSED) VIAL ONE (12:21)
[2017-11-26] MEDS ORDERED: fentaNYL INJECTION 100 MCG/2 ML AMP ONE (12:22)
--- NOTE | 2017-11-26 13:16 | Cardiac Procedure Note-CS/ASA ---
Pre-Procedure Note Pre-Op Procedure Note H&P Reviewed The H&P was reviewed, patient examined and no changes noted. Date H&P Reviewed: Nov 26, 2017 Time H&P Reviewed: 12:00 Conscious Sedation Pre-Proced Time Reviewed: 12:00 ASA Class: 3 Airway Mallampati Classification: (kiana appropriate class) I. II. III, IV Lungs Heart ASA score ASA 1: a normal healthy patient ASA 2: a patient with a mild systemic disease (mid diabetes, controlled hypertension, obesity x ASA 3: a patient with a severe systemic disease that limits activity (angina , COPD, prior Myocardial infarction) ASA 4: a patient with an incapacitating disease that is a constant threat to life (CHF, renal failure) ASA 5: a moribund patient not expected to survive 24 hrs. (ruptured aneurysm) ASA 6: a declared brain patient whose organs are being harvested. For emergent operations, add the letter E after the classification Grade 3 Sedation Plan: Analgesia, Amnesia, Plan communicated to team members, Discussed options with patient/fam, Discussed risks with patient/fam Note The patient is an appropriate candidate to undergo the planned procedure, sedation, and anesthesia. The patient immediately re-assessed prior to indication. AMANDA HAYDEN MD Nov 26, 2017 13:16
[2017-11-26] MEDS ORDERED: ATROPINE INJECTION 1 MG/10 ML SYR (ABBOTT) ONE (13:24)
[2017-11-26] MEDS ORDERED: PATIENT MAY USE OWN MEDS, ALL PO SCH (13:30)
--- NOTE | 2017-11-26 13:32 | Discharge Inst-Post CATH ---
Discharge Inst-CATH Post Cardiac Cath D/C Inst Follow Up/Plan Appointment with Dr. Cortes's office in 4 weeks CARDIAC CATH DISCHARGE INSTRUCTIONS *Hold Metformin for 48 hours post heart cath. ACTIVITY * Go Home directly and rest. * Limit activity of the leg (or wrist if it was used) for 7 days including aerobics, swimming, jogging, bicycling, etc. * Restrict stair-climbing for 7 days if possible, if not, climb up with your non -cath leg, then bring together on the same step. * Avoid lifting, pushing, pulling or excessive movement of the affected extremity for 7 days. * Customary sexual activity may be resumed after 2 days-use caution not to use a position that strains or causes pain to the affected extremity. * No driving for 24 hours. * NO SMOKING. * Avoid straining for bowel movements for 7 days. * Gentle walking on level ground is allowed. * Returning to work will depend on the type of procedure and the results. Your doctor will discuss this with you. CALL YOUR DOCTOR FOR ANY OF THE FOLLOWING: *If bleeding from the puncture site occurs- Apply gentle pressure to site with clean cloth and call your doctor or EMS. * If a knot or lump forms under the skin, increases in size, or causes pain. * If bruising appears to be worsening or moving further down your leg instead of disappearing. * Temperature above 101 F. CARE OF YOUR GROIN INCISION; * Bruising or purple discoloration of the skin near the puncture site is common. * You may shower only, no bathtub bathing for 5 days. Be careful to avoid slipping as your leg may feel stiff. * If a closure device was used on your femoral artery, please see the attached guide regarding care of the device and your leg. * REMOVE the dressing from your groin the next day after your procedure in the shower. CARE OF YOUR WRIST INCISION; * Bruising or purple discoloration of the skin near the puncture site is common. * You may shower. * DO NOT submerge wrist. * Remove dressing in 24 hours. AMANDA CORTES MD Nov 26, 2017 13:32
--- NOTE | 2017-11-26 13:36 | Peripheral Report ---
Peripheral Report Physician (s)/Membership Sales Representative (s) Physician AMANDA HAYDEN MD Pre-Procedure Diagnosis Pre-Procedure Diagnosis: Peripheral artery disease Post-Procedure Note Procedure Start Date: Nov 26, 2017 Name of Procedure: Abdominal aortogram with bilateral runoff Findings/Procedure Note PROCEDURE NOTE: After explaining the procedure to the patient, all pros and cons were explained , all questions were answered. The patient signed the consent and then she was placed on the cardiac catheterization laboratory. The patient was placed on the cardiac catheterization laboratory. Groin was prepped SL fashion local anesthesia was used. Sheath placed in the right femoral artery. Runoff to the right lower except he was done through the sheath then a pigtail catheter was placed in the abdominal aorta and abdominal aortogram with bilateral lower extremity runoff was done. At the end of the procedure sheath was removed and manual pressure applied FINDINGS: Abdominal aortogram with bilateral lower extremities runoff showed small infrarenal abdominal aortic aneurysm extending to the bifurcation, right renal artery appeared normal left renal artery has moderate disease, superior mesenteric artery was not well-visualized inferior mesenteric artery is normal. There are kissing stents in the iliac that are patent with moderate in-stent restenosis of the left iliac stent, there is brisk runoff with chcm-co-swtkjfld disease down to the trifurcation. Small vessel disease distally. CONCLUSIONS: 1. Infrarenal abdominal aortic aneurysm, moderate in size. 2. Patent kissing iliac stent with mild to moderate in-stent restenosis at the left iliac artery 3. Mild to moderate disease bilaterally down to the trifurcation with small vessel disease distally DISCUSSION AND RECOMMENDATIONS: Continue to maximize medical therapy Anesthesia Type: Conscious Sedation Estimated blood loss (mL): 15 ml Contrast Amount: 49 ml Total Radiation Dose: 56 mGy Post-Procedure Diagnosis Post-operative diagnosis: Claudication Peripheral arterial disease Hypertension Hyperlipidemia AMANDA HAYDEN MD Nov 26, 2017 13:36
== END 2017-11-26 18:05 | disposition home or self-care (01) ==
LOC: CATH 09:52 → SDC 14:06 → CATH 18:05
PROVIDERS: ATTEND Internal Medicine Cardiovascular Disease
DX: I70.203 Unspecified atherosclerosis of native arteries of extremities, bilateral legs (principal); I71.4 Abdominal aortic aneurysm, without rupture; I12.9 Hypertensive chronic kidney disease with stage 1 through stage 4 chronic kidney disease, or unspecified chronic kidney disease; E78.5 Hyperlipidemia, unspecified; I65.23 Occlusion and stenosis of bilateral carotid arteries; I25.10 Atherosclerotic heart disease of native coronary artery without angina pectoris; N18.9 Chronic kidney disease, unspecified; Z11.2 Encounter for screening for other bacterial diseases; Z86.73 Personal history of transient ischemic attack (TIA), and cerebral infarction without residual deficits
CPT/HCPCS: 36415; 71045; 75630; 80053; 80061; 85027; 85610; 85730; 87081; 93005

== ENCOUNTER → 2017-12-10 | Outpatient (CLI) | payer MEDICARE, MEDICAID ==
[~2017-12-10] MED LIST changes: +CALC-140 PO; +MAGN400T39 PO
--- NOTE | 2017-12-10 11:48 | Diagnostic Imaging Report ---
EXAMINATION: Abdominal aortic ultrasound. INDICATION: Coronary artery disease There are no prior abdominal ultrasound examinations available for comparison. The CT lumbar spine exam performed on 07/31/2017 however did suggest an aneurysm of the distal abdominal aorta. The aneurysm was not visualized in its entirety but did appear to measure 3.5 CM in maximum transverse diameter on the coronal series. On this study the aneurysm is again visualized. The aneurysm estimated to be 3.2 x 3.5 CM in maximum AP and transverse diameter. There is no other evidence for aneurysmal dilatation of the abdominal aorta. As noted on the CT exam there do appear to be stents in the distal abdominal aorta and in both common iliac arteries. The stents are patent. The common iliac arteries themselves are not aneurysmally dilated. There is no periaortic fluid collection to suggest an acute abnormality. IMPRESSION: 1. There is a 3.2 x 3.5 CM aneurysm of the distal abdominal aorta. There are stents within the aneurysm and extending into both common iliac arteries. The stents are patent 2. There is no acute abnormality identified. Dictated by: Dictated on workstation # [id number]
== END ==
LOC: RAD 09:46
PROVIDERS: ATTEND Physician Assistant
DX: I71.4 Abdominal aortic aneurysm, without rupture (principal); I25.10 Atherosclerotic heart disease of native coronary artery without angina pectoris; I65.23 Occlusion and stenosis of bilateral carotid arteries; I10 Essential (primary) hypertension; E78.2 Mixed hyperlipidemia; I73.9 Peripheral vascular disease, unspecified; Z95.828 Presence of other vascular implants and grafts
CPT/HCPCS: 76775

== ENCOUNTER → 2017-12-16 | Outpatient (CLI) | payer MEDICARE, MEDICAID ==
[~2017-12-16] MED LIST changes: +IOHEXOL 350 MG/ML 100 ML (OMNIPAQUE 350) VIAL IV ONE; +NS 250 ML (IVPB) BAG IV ONE
--- NOTE | 2017-12-16 14:25 | Diagnostic Imaging Report ---
PROCEDURE: CT abdomen and pelvis with contrast. TECHNIQUE: Multiple contiguous axial images were obtained through the abdomen and pelvis after administration of intravenous contrast. INDICATION: Left-sided abdominal pain and right-sided hernia pain. The lung bases are clear. No discrete liver mass is seen. Intrahepatic and extrahepatic bile ducts are slightly prominent, perhaps owing to postcholecystectomy. Pancreas and spleen are unremarkable. No adrenal mass is identified. Kidneys are unremarkable. There is mild aneurysmal dilatation of the distal abdominal aorta measuring up to 3.3 cm AP diameter. This terminates above the bifurcation. There is a left para midline ventral hernia, just lateral to the patient's abdominal wall mesh. The defect is approximately 3 cm transverse diameter. The hernia sac does contain fat. No definite herniated bowel loops are seen. Bowel loops are normal caliber. No obstruction is identified. There is no free fluid in the abdomen or pelvis. The bladder is unremarkable. Postsurgical changes bilateral hips are seen. IMPRESSION: 1. Left para-midline fat containing ventral hernia. No bowel obstruction is seen. 2. Infrarenal abdominal aortic aneurysm. No other significant abnormality is seen. Dictated by: Dictated on workstation # [id number]
== END ==
LOC: RAD 12:25
PROVIDERS: ATTEND Nurse Practitioner Family
DX: K43.9 Ventral hernia without obstruction or gangrene (principal); I71.4 Abdominal aortic aneurysm, without rupture; Z90.49 Acquired absence of other specified parts of digestive tract
CPT/HCPCS: 74177

== ENCOUNTER 2018-02-24 13:00 | Outpatient (RCR) | payer MEDICARE, MEDICAID ==
[~2018-02-24 13:00] MED LIST changes: -IOHEXOL 350 MG/ML 100 ML (OMNIPAQUE 350) VIAL IV ONE; -NS 250 ML (IVPB) BAG IV ONE; -POLY17PO23 PO; +POLY17PO31 PO; -POLY255P PO; +POLY255P16 PO
== END 2018-03-13 13:33 | disposition home or self-care (01) ==
PROVIDERS: ATTEND Family Medicine
DX: M54.14 Radiculopathy, thoracic region (principal)

== ENCOUNTER 2018-08-20 13:20 | Outpatient (RCR) | payer MEDICARE, MEDICAID ==
[2018-06-25 14:46] LABS: BASOPHILS % (AUTO) 1 % (0-10); EOSINOPHILS # (AUTO) 0.3 10^3/uL (0.0-0.3); EOSINOPHILS % (AUTO) 6 % (0-10); HEMATOCRIT 34 % (35-52); HEMOGLOBIN 10.2 G/DL (11.5-16.0); LYMPHOCYTES # (AUTO) 1.4 X 10^3 (1.0-4.0); LYMPHOCYTES % (AUTO) 29 % (12-44); MEAN CORPUSCULAR HEMOGLOBIN 27 PG (25-34); MEAN CORPUSCULAR HGB CONC 30 G/DL (32-36); MEAN CORPUSCULAR VOLUME 90 FL (80-99); MEAN PLATELET VOLUME 9.7 FL (7.4-10.4); MONOCYTES # (AUTO) 0.4 X 10^3 (0.0-1.0); MONOCYTES % (AUTO) 10 % (0-12); NEUTROPHILS # (AUTO) 2.5 X 10^3 (1.8-7.8); NEUTROPHILS % (AUTO) 55 % (42-75); PLATELET COUNT 291 10^3/uL (130-400); RED CELL DISTRIBUTION WIDTH 20.2 % (10.0-14.5); WHITE BLOOD COUNT 4.7 10^3/uL (4.3-11.0)
[2018-06-25 15:05] LABS: BILIRUBIN,TOTAL 0.2 MG/DL (0.1-1.0); CALCIUM 9.7 MG/DL (8.5-10.1); CREATININE SERUM 1.23 MG/DL (0.60-1.30); POTASSIUM 4.4 MMOL/L (3.6-5.0); TOTAL PROTEIN 7.2 GM/DL (6.4-8.2)
[~2018-08-20 13:20] MED LIST changes: -CETI-214 PO; +CETI-458 PO; +LOSA25TA41 PO; -LOSA25TA6 PO; +LOSA50TA63 PO; -LOSA50TA7 PO
[2018-08-20 13:51] LABS: BASOPHILS % (AUTO) 0 % (0-10); EOSINOPHILS # (AUTO) 0.3 10^3/uL (0.0-0.3); EOSINOPHILS % (AUTO) 5 % (0-10); HEMATOCRIT 38 % (35-52); HEMOGLOBIN 12.3 G/DL (11.5-16.0); LYMPHOCYTES # (AUTO) 1.3 X 10^3 (1.0-4.0); LYMPHOCYTES % (AUTO) 26 % (12-44); MEAN CORPUSCULAR HEMOGLOBIN 30 PG (25-34); MEAN CORPUSCULAR HGB CONC 33 G/DL (32-36); MEAN CORPUSCULAR VOLUME 92 FL (80-99); MEAN PLATELET VOLUME 9.2 FL (7.4-10.4); MONOCYTES # (AUTO) 0.5 X 10^3 (0.0-1.0); MONOCYTES % (AUTO) 11 % (0-12); NEUTROPHILS # (AUTO) 2.9 X 10^3 (1.8-7.8); NEUTROPHILS % (AUTO) 57 % (42-75); PLATELET COUNT 236 10^3/uL (130-400); RED CELL DISTRIBUTION WIDTH 15.3 % (10.0-14.5)
[2018-08-20 14:15] LABS: ALBUMIN 4.1 GM/DL (3.2-4.5); BILIRUBIN,TOTAL 0.2 MG/DL (0.1-1.0); CREATININE SERUM 1.05 MG/DL (0.60-1.30); POTASSIUM 4.3 MMOL/L (3.6-5.0); TOTAL PROTEIN 7.5 GM/DL (6.4-8.2)
== END 2018-09-23 | disposition home or self-care (01) ==
LOC: ONC 13:20
PROVIDERS: ATTEND Internal Medicine Hematology & Oncology
DX: D64.9 Anemia, unspecified (principal); I12.9 Hypertensive chronic kidney disease with stage 1 through stage 4 chronic kidney disease, or unspecified chronic kidney disease; N18.3 Chronic kidney disease, stage 3 (moderate); J43.9 Emphysema, unspecified; I25.10 Atherosclerotic heart disease of native coronary artery without angina pectoris; E78.5 Hyperlipidemia, unspecified; I73.9 Peripheral vascular disease, unspecified; K21.9 Gastro-esophageal reflux disease without esophagitis; K43.9 Ventral hernia without obstruction or gangrene; F17.210 Nicotine dependence, cigarettes, uncomplicated; Z86.73 Personal history of transient ischemic attack (TIA), and cerebral infarction without residual deficits; Z79.899 Other long term (current) drug therapy
CPT/HCPCS: 36415; 80053; 82728; 83540; 85025; 99213; 99214

== ENCOUNTER → 2018-09-18 | Outpatient (CLI) | payer MEDICARE, MEDICAID | LOC: CARD 12:59 | PROVIDERS: ATTEND Physician Assistant | DX: I25.10 Atherosclerotic heart disease of native coronary artery without angina pectoris (principal); I12.9 Hypertensive chronic kidney disease with stage 1 through stage 4 chronic kidney disease, or unspecified chronic kidney disease; N18.3 Chronic kidney disease, stage 3 (moderate); J44.9 Chronic obstructive pulmonary disease, unspecified; I65.29 Occlusion and stenosis of unspecified carotid artery; R06.02 Shortness of breath; I35.0 Nonrheumatic aortic (valve) stenosis | CPT/HCPCS: 93306 ==

== ENCOUNTER 2018-12-31 18:44 | Observation (INO) | payer MEDICARE, MEDICAID ==
[~2018-12-31] VITALS: Ht 172.7 cm; Wt 70.3 kg
[~2018-12-31 18:44] MED LIST changes: -OMEP20CA12 PO; +OMEP20CA13 PO
--- NOTE | 2018-12-31 19:05 | ED General ---
General Chief Complaint: Neuro-Stroke Like Symptoms Stated Complaint: GENERAL WEAKNESS Nursing Triage Note: PT BROUGHT IN BY [facility] FROM HOME WITH COMPLAINT OF WEAKNESS AND TWITCHING. WEAKNESS WAS NOTICED TODAY. PER CARE GIVERS PT TOOK TWO MUSCLE RELAXERS BEFORE GOING TO BED LAST NIGHT. STATES NORMALLY ONLY TAKES TWO. STATES PT ALSO START LEVAQUIN ON FRIDAY FOR BRONCHITIS. Nursing Sepsis Screen: No Definite Risk Source of Information: Patient Exam Limitations: No Limitations History of Present Illness Date Seen by Provider: Dec 31, 2018 Time Seen by Provider: 19:00 Initial Comments To ER with reports of generalized weakness and twitching. Her caregiver noticed this upon her arrival at 2 PM at the house today. States the patient seems a little confused today as well. Typically she takes one baclofen for restless legs at night, last night she took 2 of them due to increased pain in both legs. She's been on Levaquin for 3 days for bronchitis. She smokes 2-3 packs of cigarettes a day. History of a stroke with residual left-sided weakness. She feels as though she is more weak on the left side today. Timing/Duration: 4-6 Hours Severity: Moderate Associated Systoms: Denies Symptoms Allergies and Home Medications Allergies Coded Allergies: Penicillins (Verified Allergy, Unknown, PT HAS RECEIVED ANCEF WITHOUT ISSUE, 05/30/14) meperidine (Verified Allergy, Unknown, 05/30/14) Home Medications Albuterol Sulfate 18 Gm Hfa.aer.ad, 2 PUFF INH Q6H PRN for SHORTNESS OF BREATH, (Reported) Baclofen 10 Mg Tablet, 10 MG PO BID PRN for SPASMS, (Reported) Budesonide/Formoterol Fumarate 10.2 Gm Hfa.aer.ad, 2 PUFF INH BID, (Reported) Calcium Carbonate/Vitamin D3 1 Each Tablet, 1 EACH PO DAILY, (Reported) Divalproex Sodium 250 Mg Tablet.dr, 250 MG PO HS, (Reported) Fluticasone Propionate 16 Gm [place].susp, 1 SPRAY NS BID, (Reported) Furosemide 40 Mg Tablet, 40 MG PO DAILY, (Reported) Ipratropium/Albuterol Sulfate 3 Ml Ampul.neb, 3 ML IH QID PRN for SHORTNESS OF BREATH, (Reported) L.acidoph & Paracasei,B.lactis 1 Each Capsule, 1 CAP PO DAILY, (Reported) Latanoprost 2.5 Ml Drops, 1 DROP OU HS, (Reported) Losartan Potassium 25 Mg Tablet, 25 MG PO DAILY, (Reported) Magnesium Oxide 400 Mg Tablet, 400 MG PO DAILY, (Reported) Nebivolol HCl 5 Mg Tablet, 5 MG PO HS, (Reported) Ondansetron HCl 4 Mg Tablet, 4 MG PO Q8H PRN for NAUSEA/VOMITING-1ST LINE, (Reported) Pantoprazole Sodium 40 Mg Tablet.dr, 40 MG PO BID, (Reported) Polyethylene Glycol 3350 255 Gm Powder, 17 GM PO DAILY PRN for CONSTIPATION-2ND LINE, (Reported) Potassium Chloride 10 Meq Tablet.er, 10 MEQ PO DAILY, (Reported) Sertraline HCl 100 Mg Tablet, 200 MG PO DAILY, (Reported) TAKES 2 (100MG) TABLETS Spironolactone 25 Mg Tablet, 25 MG PO DAILY, (Reported) Patient Home Medication List Home Medication List Reviewed: Yes Review of Systems Review of Systems Constitutional: see HPI EENTM: see HPI Respiratory: no symptoms reported Cardiovascular: no symptoms reported Genitourinary: no symptoms reported Musculoskeletal: see HPI, muscle weakness Skin: no symptoms reported Psychiatric/Neurological: No Symptoms Reported Hematologic/Lymphatic: No Symptoms Reported Immunological/Allergic: no symptoms reported Past Zqnqozr-Oukzup-Tmlfcb Hx Patient Social History Alcohol Use: Denies Use Recreational Drug Use: No Smoking Status: Current Everyday Smoker Type Used: Cigarettes 2nd Hand Smoke Exposure: Yes Recent Foreign Travel: No Contact w/Someone Who Travel: No Recent Infectious Disease Expo: No Recent Hopitalizations: No Physical Abuse: No Sexual Abuse: No Mistreated: No Fear: No Immunizations Up To Date Tetanus Booster (TDap): Unknown Date of Pneumonia Vaccine: Dec 15, 2013 Date of Influenza Vaccine: Dec 12, 2016 Seasonal Allergies Seasonal Allergies: No Past Medical History Surgeries: Yes Abdominal, Breast, Gallbladder, Hysterectomy, Orthopedic, Rectal, Tonsillectomy, Vascular Surgery Respiratory: Yes (COPD--O2 AT 3L/NC CONTINUOUSLY) COPD Currently Using CPAP: No Currently Using BIPAP: No Cardiac: No (CAROTID DISEASE; PERIPHERAL VASCULAR DISEASE--STENTS IN LEG, PER PT; CHF) Coronary Artery Disease, High Cholesterol, Hypertension, Peripheral Vascular Neurological: Yes (LEFT SIDE WEAKNESS--LAST TIA 01/2016) Seizure Disorder, Stroke, TIA 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 Disorders: No Female 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 Disorders: Denies 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, Menopausal Sexually Transmitted Disease: No HIV/AIDS: No Genitourinary: No Gastrointestinal: No Abdominal Hernia, Gastroesophageal Reflux, Chronic Constipation, Hemorrhoids, Polyps Musculoskeletal: Yes (CHRONIC GENERALIZED PAIN , FX RIGHT HIP 09/09/15; LEFT HIP FX 05/2016) Arthritis, Fibromyalgia, Chronic Back Pain, Fractures Endocrine: No HEENT: Yes Glaucoma Hearing Impairment: Denies Cancer: Yes Breast Did You Recieve Any Treatments: Yes What Type of Treatment Did You: Chemotherapy Psychosocial: Yes ("SEVERE ANXIETY" PER PT) Anxiety Integumentary: No Recent Skin Changes Blood Disorders: Yes (ANEMIA) Adverse Reaction/Blood Tranf: No Family Medical History Alcoholism 19 MOTHER, Onset:20's - 25 Aphasia 19 MOTHER, Onset:40's - 50 Asthma 19 FATHER, Onset:Unknown Congenital disease Son, Onset:Pre- Diabetes mellitus G8 SISTER, Onset:60 years & older FH: ovarian cancer G8 SISTER, Onset:Unknown FHx: stomach cancer 19 MOTHER, Onset:60 years & older Glaucoma Grandaughter, Onset:Unknown Hypertension 19 MOTHER, Onset:Unknown Infertility G8 SISTER, Onset:Pre- Tuberculosis G8 SISTER, Onset:30's - 40 No Family History of: AIDS Abdominal aortic aneurysm Gila's disease Alzheimer's disease Cancer of mouth Cardiovascular disease Cataracts Colon cancer Completed stroke Congenital heart disease Coronary thrombosis Cystic fibrosis Deafness or hearing loss Dementia Drug abuse Dysphasia Fibrocystic disease of breast Gastroenteritis Gout Headache disorder Hypercholesterolemia Kidney disease Myocardial infarction Neoplasm Not obtainable due to adoption Osteoporosis Parkinson's disease Prostate cancer Psychosocial problem Respiratory disorder Seizure disorder Severe allergy Thyroid disease Visual disorder Cancer, Diabetes Physical Exam Vital Signs Vital Signs - First Documented 12/31/18 18:45 Temp 37.6 Pulse 89 Resp 23 B/P (MAP) 123/89 (100) Pulse Ox 93 O2 Delivery Room Air Capillary Refill : Less Than 3 Seconds Height, Weight, BMI Height: 5'8.00" Weight: 155lbs. 0.0oz. [id number]; 22.00 BMI Method:Estimated General Appearance: No Apparent Distress, WD/WN Eyes: Bilateral Eye Normal Inspection, Bilateral Eye PERRL, Bilateral Eye EOMI HEENT: PERRL/EOMI, TMs Normal Neck: Full Range of Motion, Normal Inspection Respiratory: No Accessory Muscle Use, No Respiratory Distress Cardiovascular: Regular Rate, Rhythm, Normal Peripheral Pulses Gastrointestinal: Normal Bowel Sounds, Non Tender, Soft Extremity: Normal Capillary Refill, Normal Inspection, Other (her right pointer finger is stained brown likely from holding the cigarettes) Neurologic/Psychiatric: Alert, Oriented x3 Skin: Normal Color, Warm/Dry Focused Exam NIH Stroke Scale NIH : Level of Consciousness: 0=Alert Level of Consciousness-Questio: 0=Answers both month/age LOC Commands: 0=Performs both tasks Gaze: 0=Normal Visual Ngo: 0=No visual loss Facial Movement (Facial Paresi: 1=Minor paralysis Motor Function-Arms Right: 0=No drift Motor Function-Arms Left: 2=Some effort/gravity Motor Function-Legs Right: 2=Some effort/gravity Motor Function-Legs Left: 2=Some effort/gravity Sensory: 1=Mild to Moderate loss Best Language: 0=No aphasia Dysarthria: 0=Normal Extinction & Inattention: 0=No abnormality Progress/Results/Core Measures Suspected Sepsis Recent Fever Within 48 Hours: No Infection Criteria Present: None New/Unexplained Altered Menta: No Sepsis Screen: No Definite Risk SIRS Temperature: Pulse: 89 Respiratory Rate: 23 Laboratory Tests 12/31/18 18:56: White Blood Count 6.0 Blood Pressure 123 /89 Mean: 100 Laboratory Tests 12/31/18 18:56: Creatinine 1.88H, INR Comment 1.1, Platelet Count 252, Total Bilirubin 0.2 Results/Orders Lab Results Laboratory Tests Test 12/31/18 18:56 12/31/18 20:04 Range/Units White Blood Count 6.0 4.3-11.0 10^3/uL Red Blood Count 3.25 L 4.35-5.85 10^6/uL Hemoglobin 10.3 L 11.5-16.0 G/DL Hematocrit 32 L 35-52 % Mean Corpuscular Volume 99 80-99 FL Mean Corpuscular Hemoglobin 32 25-34 PG Mean Corpuscular Hemoglobin Concent 32 32-36 G/DL Red Cell Distribution Width 14.7 H 10.0-14.5 % Platelet Count 252 130-400 10^3/uL Mean Platelet Volume 9.3 7.4-10.4 FL Neutrophils (%) (Auto) 64 42-75 % Lymphocytes (%) (Auto) 19 12-44 % Monocytes (%) (Auto) 14 H 0-12 % Eosinophils (%) (Auto) 2 0-10 % Basophils (%) (Auto) 0 0-10 % Neutrophils # (Auto) 3.8 1.8-7.8 X 10^3 Lymphocytes # (Auto) 1.2 1.0-4.0 X 10^3 Monocytes # (Auto) 0.8 0.0-1.0 X 10^3 Eosinophils # (Auto) 0.1 0.0-0.3 10^3/uL Basophils # (Auto) 0.0 0.0-0.1 10^3/uL Prothrombin Time 14.7 12.2-14.7 SEC INR Comment 1.1 0.8-1.4 Activated Partial Thromboplast Time 32 24-35 SEC D-Dimer 2.05 H 0.00-0.49 UG/ML Sodium Level 142 135-145 MMOL/L Potassium Level 4.4 3.6-5.0 MMOL/L Chloride Level 105 98-107 MMOL/L Carbon Dioxide Level 25 21-32 MMOL/L Anion Gap 12 5-14 MMOL/L Blood Urea Nitrogen 35 H 7-18 MG/DL Creatinine 1.88 H 0.60-1.30 MG/DL Estimat Glomerular Filtration Rate 26 BUN/Creatinine Ratio 19 Glucose Level 113 H 70-105 MG/DL Calcium Level 9.2 8.5-10.1 MG/DL Corrected Calcium 9.4 8.5-10.1 MG/DL Total Bilirubin 0.2 0.1-1.0 MG/DL Aspartate Amino Transf (AST/SGOT) 19 5-34 U/L Alanine Aminotransferase (ALT/SGPT) 10 0-55 U/L Alkaline Phosphatase 94 40-136 U/L Troponin I < 0.028 <0.028 NG/ML Total Protein 6.7 6.4-8.2 GM/DL Albumin 3.7 3.2-4.5 GM/DL Urine Color YELLOW Urine Clarity CLEAR Urine pH 5 5-9 Urine Specific [place] 1.010 L 1.016-1.022 Urine Protein NEGATIVE NEGATIVE Urine Glucose (UA) NEGATIVE NEGATIVE Urine Ketones NEGATIVE NEGATIVE Urine Nitrite NEGATIVE NEGATIVE Urine Bilirubin NEGATIVE NEGATIVE Urine Urobilinogen NORMAL NORMAL MG/DL Urine Leukocyte Esterase NEGATIVE NEGATIVE Urine RBC (Auto) NEGATIVE NEGATIVE Urine RBC NONE /HPF Urine WBC NONE /HPF Urine Squamous Epithelial Cells 2-5 /HPF Urine Crystals NONE /LPF Urine Bacteria NEGATIVE /HPF Urine Casts PRESENT /LPF Urine Hyaline Casts 10-25 H /LPF Urine Mucus NEGATIVE /LPF Urine Culture Indicated NO My Orders Orders - MAHAMED COBOS APRN Cbc With Automated Diff (12/31/18 18:51) Protime With Inr (12/31/18 18:51) Partial Thromboplastin Time (12/31/18 18:51) Comprehensive Metabolic Panel (12/31/18 18:51) Fibrin Degradation Products (12/31/18 18:51) Troponin I (12/31/18 18:51) Ua Culture If Indicated (12/31/18 18:51) Chest 1 View, Ap/Pa Only (12/31/18 18:51) Ekg Tracing (12/31/18 18:51) Nothing By Mouth (01/01/19 Breakfast) Accucheck Stat ONCE (12/31/18 18:51) Ed Iv/Invasive Line Start (12/31/18 18:51) Ed Iv/Invasive Line Start (12/31/18 18:51) Vital Signs Stroke Patient Q15M (12/31/18 18:51) Ct Head Wo-R/O Stroke (12/31/18 18:51) O2 (12/31/18 18:51) Intake & Output 06,14,22 (12/31/18 18:51) Monitor-Rhythm Ecg Trace Only (12/31/18 18:51) Dysphagia Screening Tool (12/31/18 18:51) Post Thrombolytic Adminstratio (12/31/18 18:51) Lipid Panel (01/01/19 06:00) Ed Iv/Invasive Line Start (12/31/18 18:59) I-Stat Bedside Testing (12/31/18 19:07) Ns Iv 1000 Ml (Sodium Chloride 0.9%) (12/31/18 19:15) Vital Signs/I&O 12/31/18 18:45 Temp 37.6 Pulse 89 Resp 23 B/P (MAP) 123/89 (100) Pulse Ox 93 O2 Delivery Room Air Capillary Refill : Less Than 3 Seconds Blood Pressure Mean: 100 Diagnostic Imaging Diagonstic Imaging: Xray, CT Comments NAME: JUDITH ROMEO Kori [facility] REC#: [id number] PT STATUS: REG ER : 1945 PHYSICIAN: MAHAMED COBOS APRN ADMIT DATE: 12/31/18/ER Draft Date of Exam:12/31/18 CT HEAD WO-R/O STROKE PROCEDURE: CT head wo r/o stroke. TECHNIQUE: Multiple contiguous axial images were obtained through the brain without the use of intravenous contrast. Auto Exposure Controls were utilized during the CT exam to meet ALARA standards for radiation dose reduction. INDICATION: Left-sided weakness There is no mass, shift of the midline or hemorrhage to suggest an acute intracranial abnormality. The ventricles are not abnormally dilated and similar in size to the prior exam of 07/31/2017. The cortical atrophy and periventricular encephalomalacia seen previously are again evident and no different. The bone windows show no sign of a fracture or of a destructive lesion. The orbits and sinuses were not visualized in their entirety. Where visualized, there is no acute abnormality. IMPRESSION: 1. There is no evidence for an acute intracranial abnormality. 2. If clinical concern regarding an acute abnormality persists, then MRI would be recommended for further study. Dictated on workstation # [id number] Dict: 12/31/181931 Trans: 12/31/181939 MELVI [id number] Interpreted by: GUILLERMO MALAVE MD Electronically signed by: NAME: JUDITH ROMEO [facility] REC#: [id number] PT STATUS: REG ER : 1945 PHYSICIAN: MAHAMED COBOS APRN ADMIT DATE: 12/31/18/ER Draft Date of Exam:12/31/18 CHEST 1 VIEW, AP/PA ONLY EXAMINATION: Portable erect AP chest at 7:20 PM INDICATION: Left-sided weakness The heart size is within normal limits and stable when compared to 11/26/2017. The lungs are generally clear. There is no sign of failure, pneumonia or a pleural effusion. The mediastinum is not widened. The osseous structures are intact. IMPRESSION: There is no evidence for active disease. Dictated on workstation # [id number] Dict: 12/31/181947 Trans: 12/31/181950 MELVI [phone] Interpreted by: GUILLERMO MALAVE MD Electronically signed by: Departure Communication (Admissions) Time/Spoke to Admitting Phy: 20:32 2020-condition unchanged, she has persistent weakness that is unusual in both lo wer extremities, the left arm greater than her previous deficits from prior stroke. Levaquin could contribute to neurologic changes, the baclofen double dose that she took last night could contribute to this as well CT head is unremarkable for acute changes, CT angiogram head and neck precluded by acute kidney injury. Discussed case with Dr. Coronado, we will admit the patient, aspi rin, MRI brain in the morning. Neuro checks overnight. We will hydrate as well. Impression Primary Impression: Stroke-like symptoms Additional Impressions: Generalized weakness Acute kidney injury Disposition: ADMITTED INPATIENT Condition: Stable Admissions Decision to Admit Reason: Admit from ER (General) Decision to Admit/Date: Dec 31, 2018 Time/Decision to Admit Time: 20:32 Departure-Patient Inst. Referrals: KELSIE CORONADO DO (PCP) Primary Care Physician NIH Stroke Scale NIH : Level of Consciousness: 0=Alert Level of Consciousness-Questio: 0=Answers both month/age LOC Commands: 0=Performs both tasks Gaze: 0=Normal Visual Ngo: 0=No visual loss Facial Movement (Facial Paresi: 1=Minor paralysis Motor Function-Arms Right: 0=No drift Motor Function-Arms Left: 2=Some effort/gravity Motor Function-Legs Right: 2=Some effort/gravity Motor Function-Legs Left: 2=Some effort/gravity Sensory: 1=Mild to Moderate loss Best Language: 0=No aphasia Dysarthria: 0=Normal Extinction & Inattention: 0=No abnormality NIH Stroke Scale NIH Stroke Scale NIH : Select: Initial Level of Consciousness: 0=Alert Level of Consciousness-Questio: 0=Answers both month/age LOC Commands: 0=Performs both tasks Gaze: 0=Normal Visual Ngo: 0=No visual loss Facial Movement (Facial Paresi: 1=Minor paralysis (unknown if this is her baseline) Motor Function-Arms Right: 0=No drift Motor Function-Arms Left: 2=Some effort/gravity Motor Function-Legs Right: 2=Some effort/gravity Motor Function-Legs Left: 2=Some effort/gravity Limb Ataxia: 0=Absent (unable to assess as she cannot move her left arm or either leg off of the bed. Her right arm has no ataxia) Sensory: 1=Mild to Moderate loss (affecting bilateral lower extremities) Best Language: 0=No aphasia Dysarthria: 0=Normal Extinction & Inattention: 0=No abnormality NIH Stroke Scale Score: 8 (Pre-existing left-sided deficit) MAHAMED COBOS APRN Dec 31, 2018 19:04
[2018-12-31 19:15] LABS: BASOPHILS % (AUTO) 0 % (0-10); EOSINOPHILS # (AUTO) 0.1 10^3/uL (0.0-0.3); EOSINOPHILS % (AUTO) 2 % (0-10); HEMATOCRIT 32 % (35-52); HEMOGLOBIN 10.3 G/DL (11.5-16.0); LYMPHOCYTES # (AUTO) 1.2 X 10^3 (1.0-4.0); LYMPHOCYTES % (AUTO) 19 % (12-44); MEAN CORPUSCULAR HEMOGLOBIN 32 PG (25-34); MEAN CORPUSCULAR HGB CONC 32 G/DL (32-36); MEAN CORPUSCULAR VOLUME 99 FL (80-99); MEAN PLATELET VOLUME 9.3 FL (7.4-10.4); MONOCYTES # (AUTO) 0.8 X 10^3 (0.0-1.0); MONOCYTES % (AUTO) 14 % (0-12); NEUTROPHILS # (AUTO) 3.8 X 10^3 (1.8-7.8); NEUTROPHILS % (AUTO) 64 % (42-75); PLATELET COUNT 252 10^3/uL (130-400); RED CELL DISTRIBUTION WIDTH 14.7 % (10.0-14.5)
[2018-12-31] MEDS ORDERED: NS IV 1000 ML 1,000 ML IV SCH (19:15)
[2018-12-31 19:28] LABS: FIBRIN DEGRADATION PRODUCTS 2.05 UG/ML (0.00-0.49); INR 1.1 (0.8-1.4); PROTHROMBIN TIME PATIENT 14.7 SEC (12.2-14.7)
[2018-12-31 19:34] LABS: ALANINE AMINOTRANSFERASE 10 U/L (0-55); ALBUMIN 3.7 GM/DL (3.2-4.5); ALKALINE PHOSPHATASE 94 U/L (40-136); BILIRUBIN,TOTAL 0.2 MG/DL (0.1-1.0); BUN/CREATININE RATIO 19; CALCIUM 9.2 MG/DL (8.5-10.1); CARBON DIOXIDE 25 MMOL/L (21-32); CHLORIDE 105 MMOL/L (98-107); CREATININE SERUM 1.88 MG/DL (0.60-1.30); GFR ESTIMATED 26; GLUCOSE 113 MG/DL (70-105); POTASSIUM 4.4 MMOL/L (3.6-5.0); SODIUM 142 MMOL/L (135-145); TOTAL PROTEIN 6.7 GM/DL (6.4-8.2)
--- NOTE | 2018-12-31 19:40 | Diagnostic Imaging Report ---
PROCEDURE: CT head wo r/o stroke. TECHNIQUE: Multiple contiguous axial images were obtained through the brain without the use of intravenous contrast. Auto Exposure Controls were utilized during the CT exam to meet ALARA standards for radiation dose reduction. INDICATION: Left-sided weakness There is no mass, shift of the midline or hemorrhage to suggest an acute intracranial abnormality. The ventricles are not abnormally dilated and similar in size to the prior exam of 07/31/2017. The cortical atrophy and periventricular encephalomalacia seen previously are again evident and no different. The bone windows show no sign of a fracture or of a destructive lesion. The orbits and sinuses were not visualized in their entirety. Where visualized, there is no acute abnormality. IMPRESSION: 1. There is no evidence for an acute intracranial abnormality. 2. If clinical concern regarding an acute abnormality persists, then MRI would be recommended for further study. Dictated by: Dictated on workstation # [id number]
--- NOTE | 2018-12-31 19:52 | Diagnostic Imaging Report ---
EXAMINATION: Portable erect AP chest at 7:20 PM INDICATION: Left-sided weakness The heart size is within normal limits and stable when compared to 11/26/2017. The lungs are generally clear. There is no sign of failure, pneumonia or a pleural effusion. The mediastinum is not widened. The osseous structures are intact. IMPRESSION: There is no evidence for active disease. Dictated by: Dictated on workstation # [id number]
--- NOTE | 2018-12-31 20:04 | NUR ---
pt assisted to BSC, pt able to stand and move to BSC with assit x 2, UA collected and sent to lab, pt shows no s/s of distress, pt has no needs or c/o at this time, vs assessed and stable, will continue to monitor
[2018-12-31 20:12] LABS: BILIRUBIN,URINE NEGATIVE (NEGATIVE); CLARITY,URINE CLEAR; COLOR,URINE YELLOW; GLUCOSE, URINE (UA) NEGATIVE (NEGATIVE); KETONES,URINE NEGATIVE (NEGATIVE); LEUKOCYTE ESTERASE ,URINE NEGATIVE (NEGATIVE); NITRITE,URINE NEGATIVE (NEGATIVE); PH,URINE 5 (5-9); PROTEIN,URINE NEGATIVE (NEGATIVE)
[2018-12-31 20:19] LABS: BACTERIA,URINE NEGATIVE /HPF
--- NOTE | 2018-12-31 20:34 | NUR ---
report given to [facility]
[2018-12-31] MEDS ORDERED: HYDROcodone/APAP 5 MG/325 MG (LORTAB) TAB PO ONE (21:00)
[2018-12-31 21:20] VITALS: BP 135/70
[2018-12-31] MEDS ORDERED: NS IV 1000 ML 1,000 ML ONE (21:34)
[2018-12-31 22:00] VITALS: BP 130/47
[2018-12-31] MEDS: NS IV 1000 ML 1,000 ML IV SCH (22:16)
[2018-12-31 23:00] VITALS: BP 71/47
[2019-01-01] VITALS (24 sets, daily range): BP systolic 76–169; BP diastolic 43–90
[2019-01-01] MEDS ORDERED: NS IV 500 ML 500 ML ONE (00:28)
[2019-01-01] MEDS ORDERED: NS IV 500 ML 500 ML IV ONE (00:45)
[2019-01-01] MEDS: RT-ALBUTEROL SULF 2.5 MG/3 ML PRE-MIX VIAL INH SCH ×6 (01:47→22:18)
[2019-01-01 03:12] LABS: BASOPHILS % (AUTO) 0 % (0-10); EOSINOPHILS # (AUTO) 0.1 10^3/uL (0.0-0.3); EOSINOPHILS % (AUTO) 2 % (0-10); HEMATOCRIT 28 % (35-52); HEMOGLOBIN 8.7 G/DL (11.5-16.0); LYMPHOCYTES # (AUTO) 1.3 X 10^3 (1.0-4.0); LYMPHOCYTES % (AUTO) 29 % (12-44); MEAN CORPUSCULAR HEMOGLOBIN 31 PG (25-34); MEAN CORPUSCULAR HGB CONC 31 G/DL (32-36); MEAN CORPUSCULAR VOLUME 100 FL (80-99); MONOCYTES # (AUTO) 0.7 X 10^3 (0.0-1.0); MONOCYTES % (AUTO) 15 % (0-12); NEUTROPHILS # (AUTO) 2.5 X 10^3 (1.8-7.8); NEUTROPHILS % (AUTO) 54 % (42-75); PLATELET COUNT 205 10^3/uL (130-400); RED CELL DISTRIBUTION WIDTH 14.7 % (10.0-14.5); WHITE BLOOD COUNT 4.6 10^3/uL (4.3-11.0)
[2019-01-01 03:32] LABS: CALCIUM 8.5 MG/DL (8.5-10.1); CREATININE SERUM 1.51 MG/DL (0.60-1.30); MAGNESIUM 1.9 MG/DL (1.6-2.4); PHOSPHORUS 3.9 MG/DL (2.3-4.7); POTASSIUM 4.2 MMOL/L (3.6-5.0)
[2019-01-01 03:33] LABS: CHOLESTEROL 144 MG/DL (< 200); HDL CHOLESTEROL 30 MG/DL (40-60); TRIGLYCERIDES 148 MG/DL (<150); VLDL CHOLESTEROL 30 MG/DL (5-40)
[2019-01-01] MEDS: NS IV 1000 ML 1,000 ML IV SCH ×3 (05:21→22:38)
[2019-01-01] MEDS ORDERED: FLU QUADRIvalent (5+ YOA) 2019-2020 (AFLURIA) 0.5 ML IM ONE (07:45)
--- NOTE | 2019-01-01 08:30 | NUR ---
PT C/O CHEST PAIN TO CENTER OF CHEST, BURNING SENSATION. 10/[address] PEARSON NOTIFIED AND EKG OBTAINED. ORDERS RECIEVED FOR TROPONIN, PROTONIX 40MG IV NOW, AND LOVENOX 30MG DAILY.
--- NOTE | 2019-01-01 08:33 | Diagnostic Imaging Report ---
INDICATION: Dyspnea. TECHNIQUE: Single view chest 3:05 AM. CORRELATION STUDY: 12/31/2018 FINDINGS: Heart size is stable. Vasculature slightly increased from prior study. Mildly prominent interstitial markings. There is some blunting of the right costophrenic angle may reflect a small pleural effusion. Minimal atelectasis or perhaps developing infiltrate right lung base not excluded. IMPRESSION: 1. Stable heart size with slight increase in the pulmonary vascularity 2. Likely small right pleural effusion with presence of minimal atelectasis or developing infiltrate right lung base. Follow up imaging if clinically warranted. Dictated by: Dictated on workstation # [id number]
[2019-01-01] MEDS ORDERED: PANTOPRAZOLE 40 MG (PROTONIX) VIAL IV NR (08:45)
[2019-01-01] MEDS ORDERED: ENOXAPARIN 30 MG/0.3 ML (LOVENOX) SYR ONE (08:59)
[2019-01-01] MEDS: ENOXAPARIN 30 MG/0.3 ML (LOVENOX) SYR SC SCH (09:03)
[2019-01-01] MEDS: ASPIRIN 81 MG CHEW (CHILDREN'S ASA) PO SCH (09:03)
[2019-01-01] MEDS: NICOTINE 21 MG (NICODERM) PATCH TD SCH (09:03)
--- NOTE | 2019-01-01 09:20 | NUR ---
PT STATES THAT CHEST PAIN IS GONE AND RATES PAIN 0/10.
[2019-01-01] MEDS ORDERED: methylPREDNISolone 40 MG/ML (Solu-MEDROL) VIAL IV NR (10:15)
--- NOTE | 2019-01-01 11:44 | History & Physical ---
History of Present Illness History of Present Illness Reason for visit/HPI This is a 73 year old female who was brought to the emergency room with worsening weakness and concerns for another stroke. She has a history of a stroke with resulting left arm and leg weakness. She felt like her left side was weaker than her normal baseline. She does have severe COPD and continues to smoke at least 2 to 3 packs of cigarettes per day. She had a recent COPD exacerbation and was treated with Levaquin and Prednisone as an outpatient. She feels her breathing has improved and is back to baseline. She does admit that she took at least one double dose of baclofen the night before due to muscle spasms in her left side. She was found to be in acute renal failure with a creatinine of 1.88. It was decided to admit her for IV hydration and monitoring of creatinine as well as neurochecks and MRI of her brain. Date of Admission Dec 31, 2018 at 20:29 Date Seen by a Provider: Jan 01, 2019 Time Seen by a Provider: 10:30 I consulted on this patient on 01/01/19 11:39 Attending Physician Betsy Pearson DO Admitting Physician Betsy Pearson DO Consult Allergies and Home Medications Allergies Coded Allergies: Penicillins (Verified Allergy, Unknown, PT HAS RECEIVED ANCEF WITHOUT ISSUE, 05/30/14) meperidine (Verified Allergy, Unknown, 05/30/14) Home Medications Albuterol Sulfate 18 Gm Hfa.aer.ad, 2 PUFF INH Q6H PRN for SHORTNESS OF BREATH, (Reported) Baclofen 10 Mg Tablet, 10 MG PO BID PRN for SPASMS, (Reported) Budesonide/Formoterol Fumarate 10.2 Gm Hfa.aer.ad, 2 PUFF INH BID, (Reported) Calcium Carbonate/Vitamin D3 1 Each Tablet, 1 EACH PO DAILY, (Reported) Divalproex Sodium 250 Mg Tablet.dr, 250 MG PO HS, (Reported) Fluticasone Propionate 16 Gm [place].susp, 1 SPRAY NS BID, (Reported) Furosemide 40 Mg Tablet, 40 MG PO DAILY, (Reported) Ipratropium/Albuterol Sulfate 3 Ml Ampul.neb, 3 ML IH QID PRN for SHORTNESS OF BREATH, (Reported) L.acidoph & Paracasei,B.lactis 1 Each Capsule, 1 CAP PO DAILY, (Reported) Latanoprost 2.5 Ml Drops, 1 DROP OU HS, (Reported) Losartan Potassium 25 Mg Tablet, 25 MG PO DAILY, (Reported) Magnesium Oxide 400 Mg Tablet, 400 MG PO DAILY, (Reported) Nebivolol HCl 5 Mg Tablet, 5 MG PO HS, (Reported) Ondansetron HCl 4 Mg Tablet, 4 MG PO Q8H PRN for NAUSEA/VOMITING-1ST LINE, (Reported) Pantoprazole Sodium 40 Mg Tablet.dr, 40 MG PO BID, (Reported) Polyethylene Glycol 3350 255 Gm Powder, 17 GM PO DAILY PRN for CONSTIPATION-2ND LINE, (Reported) Potassium Chloride 10 Meq Tablet.er, 10 MEQ PO DAILY, (Reported) Sertraline HCl 100 Mg Tablet, 200 MG PO DAILY, (Reported) TAKES 2 (100MG) TABLETS Spironolactone 25 Mg Tablet, 25 MG PO DAILY, (Reported) Patient Home Medication List Home Medication List Reviewed: Yes Past Yjtreuz-Tjsljo-Ubczmr Hx Past Med/Social Hx: Reviewed Nursing Past Med/Soc Hx Patient Social History Alcohol Use: Denies Use Recreational Drug Use: No Smoking Status: Current Everyday Smoker Type Used: Cigarettes 2nd Hand Smoke Exposure: Yes Recent Foreign Travel: No Contact w/other who traveled: No Recent Hopitalizations: No Recent Infectious Disease Expo: No Immunizations Up To Date Tetanus Booster (TDap): Unknown Date of Pneumonia Vaccine: Dec 15, 2013 Date of Influenza Vaccine: Dec 12, 2016 Seasonal Allergies Seasonal Allergies: No Past Medical History Surgeries: Abdominal, Breast, Gallbladder, Hysterectomy, Orthopedic, Rectal, Tonsillectomy, Vascular Surgery Respiratory: COPD, Sleep Apnea Currently Using CPAP: No Currently Using BIPAP: No Cardiac: Coronary Artery Disease, High Cholesterol, Hypertension, Peripheral Vascular Neurological: Seizure Disorder, Stroke, TIA 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: No Sexually Transmitted Disease: No HIV/AIDS: No Female 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 Disorders: Denies Hysterectomy, Menopausal Gastrointestinal: Abdominal Hernia, Gastroesophageal Reflux, Chronic Constipation, Hemorrhoids, Polyps Musculoskeletal: Arthritis, Fibromyalgia, Chronic Back Pain, Fractures HEENT: Glaucoma Hearing Impairment: Denies Cancer: Breast Did You Recieve Any Treatments: Yes What Type of Treatment Did You: Chemotherapy Psychosocial: Anxiety Skin/Integumentary: Recent Skin Changes History of Blood Disorders: Yes (ANEMIA) Adverse Reaction to Blood [place]: No Family History Alcoholism 19 MOTHER, Onset:20's - 25 Aphasia 19 MOTHER, Onset:40's - 50 Asthma 19 FATHER, Onset:Unknown Congenital disease Son, Onset:Pre- Diabetes mellitus G8 SISTER, Onset:60 years & older FH: ovarian cancer G8 SISTER, Onset:Unknown FHx: stomach cancer 19 MOTHER, Onset:60 years & older Glaucoma Grandaughter, Onset:Unknown Hypertension 19 MOTHER, Onset:Unknown Infertility G8 SISTER, Onset:Pre- Tuberculosis G8 SISTER, Onset:30's - 40 No Family History of: AIDS Abdominal aortic aneurysm Lyon's disease Alzheimer's disease Cancer of mouth Cardiovascular disease Cataracts Colon cancer Completed stroke Congenital heart disease Coronary thrombosis Cystic fibrosis Deafness or hearing loss Dementia Drug abuse Dysphasia Fibrocystic disease of breast Gastroenteritis Gout Headache disorder Hypercholesterolemia Kidney disease Myocardial infarction Neoplasm Not obtainable due to adoption Osteoporosis Parkinson's disease Prostate cancer Psychosocial problem Respiratory disorder Seizure disorder Severe allergy Thyroid disease Visual disorder Cancer, Diabetes Review of Systems Constitutional: weakness EENTM: No see HPI, No no symptoms reported, No ear discharge, No hearing loss, No ear pain, No blurred vision, No double vision, No eye pain, No tearing, No vision loss, No dental problems, No hoarseness, No mouth pain, No mouth swelling, No epistaxis, No nose congestion, No nose pain, No throat pain, No throat swelling, No other Respiratory: cough (chronic from COPD) Cardiovascular: chest pain (this morning) Gastrointestinal: loss of appetite Genitourinary: No no symptoms reported, No see HPI, No decreased output, No discharge, No dysuria, No frequency, No hematuria, No hesitancy, No incontinence, No nocturia, No pain, No other Musculoskeletal: back pain, muscle twitching (spasms to left side from previous strokes), muscle weakness Psychiatric/Neurological: Weakness (left arm and leg from previous stoke) Physical Exam Vital Signs Vital Signs - First Documented 12/31/18 12/31/18 18:45 21:30 Temp 37.6 Pulse 89 Resp 23 B/P (MAP) 123/89 (100) Pulse Ox 93 O2 Delivery Room Air O2 Flow Rate 2.00 Capillary Refill : Less Than 3 Seconds Height, Weight, BMI Height: 5'8.00" Weight: 155lbs. 0.0oz. [id number]; 25.81 BMI Method:Estimated General Appearance: No Apparent Distress HEENT: Normal ENT Inspection Neck: Supple Respiratory: Decreased Breath Sounds, Rhonci Cardiovascular: Regular Rate, Rhythm, Systolic Murmur, Gallop/S4 Gastrointestinal: Normal Bowel Sounds, Non Tender, Soft, Hernia (left lower quadrant) Back: No CVA Tenderness Extremity: Non Tender, No Calf Tenderness, No Pedal Edema Neurologic/Psychiatric: Alert, Oriented x3 Skin: Warm/Dry Comments Laboratory Tests 12/31/18 18:56: White Blood Count 6.0, Red Blood Count 3.25L, Hemoglobin 10.3L, Hematocrit 32L, Mean Corpuscular Volume 99, Mean Corpuscular Hemoglobin 32, Mean Corpuscular Hemoglobin Concent 32, Red Cell Distribution Width 14.7H, Platelet Count 252, Mean Platelet Volume 9.3, Neutrophils (%) (Auto) 64, Lymphocytes (%) (Auto) 19, Monocytes (%) (Auto) 14H, Eosinophils (%) (Auto) 2, Basophils (%) (Auto) 0, Neutrophils # (Auto) 3.8, Lymphocytes # (Auto) 1.2, Monocytes # (Auto) 0.8, Eosinophils # (Auto) 0.1, Basophils # (Auto) 0.0, Prothrombin Time 14.7, INR Comment 1.1, Activated Partial Thromboplast Time 32, D-Dimer 2.05H, Sodium Level 142, Potassium Level 4.4, Chloride Level 105, Carbon Dioxide Level 25, Anion Gap 12, Blood Urea Nitrogen 35H, Creatinine 1.88H, Estimat Glomerular Filtration Rate 26, BUN/Creatinine Ratio 19, Glucose Level 113H, Calcium Level 9.2, Corrected Calcium 9.4, Total Bilirubin 0.2, Aspartate Amino Transf (AST/SGOT) 19, Alanine Aminotransferase (ALT/SGPT) 10, Alkaline Phosphatase 94, Troponin I < 0.028, Total Protein 6.7, Albumin 3.7 12/31/18 20:04: Urine Color YELLOW, Urine Clarity CLEAR, Urine pH 5, Urine Specific [place] 1 .010L, Urine Protein NEGATIVE, Urine Glucose (UA) NEGATIVE, Urine Ketones NEGATIVE, Urine Nitrite NEGATIVE, Urine Bilirubin NEGATIVE, Urine Urobilinogen NORMAL, Urine Leukocyte Esterase NEGATIVE, Urine RBC (Auto) NEGATIVE, Urine RBC NONE, Urine WBC NONE, Urine Squamous Epithelial Cells 2-5, Urine Crystals NONE, Urine Bacteria NEGATIVE, Urine Casts PRESENT, Urine Hyaline Casts 10-25H, Urine Mucus NEGATIVE, Urine Culture Indicated NO 01/01/19 03:00: White Blood Count 4.6, Red Blood Count 2.79L, Hemoglobin 8.7L, Hematocrit 28L, Mean Corpuscular Volume 100H, Mean Corpuscular Hemoglobin 31, Mean Corpuscular Hemoglobin Concent 31L, Red Cell Distribution Width 14.7H, Platelet Count 205, Mean Platelet Volume 9.0, Neutrophils (%) (Auto) 54, Lymphocytes (%) (Auto) 29, Monocytes (%) (Auto) 15H, Eosinophils (%) (Auto) 2, Basophils (%) (Auto) 0, Neutrophils # (Auto) 2.5, Lymphocytes # (Auto) 1.3, Monocytes # (Auto) 0.7, Eosinophils # (Auto) 0.1, Basophils # (Auto) 0.0, Sodium Level 144, Potassium Level 4.2, Chloride Level 111H, Carbon Dioxide Level 21, Anion Gap 12, Blood Urea Nitrogen 34H, Creatinine 1.51H, Estimat Glomerular Filtration Rate 34, BUN/Creatinine Ratio 23, Glucose Level 100, Calcium Level 8.5, Phosphorus Level 3.9, Magnesium Level 1.9, Triglycerides Level 148, Cholesterol Level 144, LDL Cholesterol Direct 87, VLDL Cholesterol 30, HDL Cholesterol 30L 01/01/19 09:20: Troponin I 0.036H Assessment/Plan Assessment and Plan 1. Acute Renal Failure--Admit and hydrate and monitor Creatinine 2. Acute on Chronic Weakness--may be due to extra dose of baclofen with an elevated Cr but will check MRI of brain due to her history of previous stroke 3. History of CVA with resulting left sided weakness--was worse on admit but now feels back to baseline 4. Bilateral Carotid Artery Stenosis and PVD and aortic aneurysm--all being followed by cardiology and just had scans done earlier this month 5. Severe COPD with recent exacerbation and ongoing tobacco abuse--is oxygen dependant 6. Chest Pain, uncertain etiology--EKG and cardiac enzymes ordered and medical certification specialist consulted, is on lovenox, unable to do CT angiogram due to creatinine 7. GERD--resume protonix Admission Diagnosis Admission Status: Inpatient Order (span 2 midnights) Reason for Inpatient Admission: Will need IV hydration and monitoring of creatinine as well as neurochecks and further workup of chest pain due to elevated troponin Clinical Quality Measures DVT/VTE Risk/Contraindication: Risk Factor Score Per Nursin RFS Level Per Nursing on Admit: 4+=Very High BETSY PEARSON DO Jan 01, 2019 11:44
[2019-01-01] MEDS ORDERED: LEVO500T80 PO (11:59)
[2019-01-01] MEDS ORDERED: PRD20T PO (11:59)
[2019-01-01] MEDS ORDERED: GABA-488 PO (11:59)
[2019-01-01] MEDS ORDERED: POTA10CA43 PO (11:59)
[2019-01-01] MEDS ORDERED: ATOR10TA66 PO (11:59)
[2019-01-01] MEDS ORDERED: BUSP5TAB59 PO (11:59)
--- NOTE | 2019-01-01 12:23 | Consultation-Cardiology ---
HPI-Cardiology Cardiology Consultation: Date of Consultation 01/01/19 Time Seen by a Provider: 17:30 Date of Admission 12-31-18 Attending Physician Kelsie Coronado DO Admitting Physician Kelsie Coronado DO Consulting Physician CAROL COY MD, MA, FACP, FACC, FSCAI, CCDS Primary paper roller: Dr Cortes HPI: Chief Complaint: CC: Chest pain HPI Ms. Springer is a 73 year old female who has been admitted to ICU9 from the ED. She reports yesterday she was having increased weakness in her left arm with twitching in her legs. She reports the symptoms persisted for several hours. She states she was worried she was having a stroke and when her care provider came at around 2 p.m. she had her bring her to the ED. She reports the increased numbness of her left has returned back to her baseline (h/o CVA with left sided weakness/numbness). She states this morning she was having a burning sensation which radiated up her chest. She reports she has a h/o GERD and it she feels it was heartburn. She denies any other associated symptoms. She has been on tx for bronchitis and has a frequent harsh, occ productive cough. She reports the discomfort gradually resolved. No c/o palpitations, syncope or near syncope. She has chronic mild to mod dyspnea which did not change. She is currently not reporting any discomfort. Review of Systems-Cardiology Review of Systems Constitutional: No chills, No fever; malaise Eyes: No vision change Ears/Nose/Throat: No epistaxis, No recent hearing loss Respiratory: As described under HPI Gastrointestinal: No constipation, No diarrhea, No nausea, No vomiting Genitourinary: No dysuria, No hematuria Skin: No rash on exposed areas, No ulcerations on exposed areas Psychiatric/Neurological: anxiety; No seizure, No syncope Hematologic: No bleeding abnormalities GBY-Kbbpvm-Niangk Hx Patient Social History Alcohol Use: Denies Use Recreational Drug Use: No Smoking Status: Current Everyday Smoker Type Used: Cigarettes 2nd Hand Smoke Exposure: Yes Recent Foreign Travel: No Recent Infectious Disease Expo: No Hospitalization with Isolation: Denies Immunizations Up To Date Tetanus Booster (TDap): Unknown Date of Pneumonia Vaccine: Dec 15, 2013 Date of Influenza Vaccine: Dec 12, 2016 Past Medical History PMH As described under Assessment. Family Medical History Family Medical History: She does not report any family h/o CAD. Family History: Alcoholism 19 MOTHER, Onset:20's - 25 Aphasia 19 MOTHER, Onset:40's - 50 Asthma 19 FATHER, Onset:Unknown Congenital disease Son, Onset:Pre- Diabetes mellitus G8 SISTER, Onset:60 years & older FH: ovarian cancer G8 SISTER, Onset:Unknown FHx: stomach cancer 19 MOTHER, Onset:60 years & older Glaucoma Grandaughter, Onset:Unknown Hypertension 19 MOTHER, Onset:Unknown Infertility G8 SISTER, Onset:Pre- Tuberculosis G8 SISTER, Onset:30's - 40 No Family History of: AIDS Abdominal aortic aneurysm Nahum's disease Alzheimer's disease Cancer of mouth Cardiovascular disease Cataracts Colon cancer Completed stroke Congenital heart disease Coronary thrombosis Cystic fibrosis Deafness or hearing loss Dementia Drug abuse Dysphasia Fibrocystic disease of breast Gastroenteritis Gout Headache disorder Hypercholesterolemia Kidney disease Myocardial infarction Neoplasm Not obtainable due to adoption Osteoporosis Parkinson's disease Prostate cancer Psychosocial problem Respiratory disorder Seizure disorder Severe allergy Thyroid disease Visual disorder Allergies and Home Medications Allergies Coded Allergies: Penicillins (Verified Allergy, Unknown, PT HAS RECEIVED ANCEF WITHOUT ISSUE, 05/30/14) meperidine (Verified Allergy, Unknown, 05/30/14) Home Medications Acetaminophen 500 Mg Tablet, 1,000 MG PO Q4H PRN for PAIN-MILD, (Reported) Albuterol Sulfate 1 Puff Puff, 2 PUFF IH Q4H PRN for SHORTNESS OF BREATH, (Reported) 1 PUFF = 90 MCG Atorvastatin Calcium 10 Mg Tablet, 10 MG PO DAILY, (Reported) Baclofen 10 Mg Tablet, 10 MG PO BID PRN for SPASMS, (Reported) LAST FILLED #60 11-06-17 Buspirone HCl 5 Mg Tablet, 5 MG PO BID, (Reported) Calcium Carbonate/Vitamin D3 1 Each Tablet, 1 TAB PO DAILY, (Reported) Divalproex Sodium 250 Mg Tablet.dr, 250 MG PO HS, (Reported) Docusate Sodium 100 Mg Capsule, 100 MG PO BID, (Reported) Ferrous Sulfate 325 Mg Tablet, 325 MG PO DAILY, (Reported) Fluticasone Propionate 16 Gm [place].susp, 1 SPRAY NS BID PRN for ALLERGIES, (Reported) Fluticasone/Umeclidin/Vilanter 1 Each Blst.w.dev, 1 PUFF INH DAILY, (Reported) LAST FILLED 08-03-18 Furosemide 40 Mg Tablet, 40 MG PO DAILY, (Reported) Gabapentin 300 Mg Capsule, 300 MG PO BID, (Reported) Ipratropium/Albuterol Sulfate 3 Ml Ampul.neb, 3 ML IH QID PRN for SHORTNESS OF BREATH, (Reported) Krill/Om-3/Dha/Epa/Phospho/Ast 1 Each Capsule, 1 CAP PO DAILY, (Reported) Latanoprost 2.5 Ml Drops, 1 DROP OU HS, (Reported) LAST FILLED 09-13-18 Levofloxacin 500 Mg Tablet, 500 MG PO DAILY, (Reported) FILLED #5 12-28-18 Losartan Potassium 25 Mg Tablet, 25 MG PO DAILY, (Reported) Magnesium Hydroxide 400 Mg/5 Ml Oral.susp, 30 ML PO DAILY PRN for CONSTIPATION- 7TH LINE, (Reported) Multivitamin 1 Each Tablet, 1 TAB PO DAILY, (Reported) Nebivolol HCl 5 Mg Tablet, 5 MG PO DAILY, (Reported) Ondansetron HCl 4 Mg Tablet, 4 MG PO Q8H PRN for NAUSEA/VOMITING-1ST LINE, (Reported) Pantoprazole Sodium 40 Mg Tablet.dr, 40 MG PO BID, (Reported) Polyethylene Glycol 3350 17 Gm Powd.pack, 17 GM PO DAILY PRN for CONSTIPATION- 2ND LINE, (Reported) Potassium Chloride 10 Meq Capsule.er, 10 MEQ PO DAILY, (Reported) Sertraline HCl 100 Mg Tablet, 200 MG PO DAILY, (Reported) TAKES 2 (100MG) TABLETS Patient Home Medication List Home Medication List Reviewed: Yes Physical Exam-Cardiology Physical Exam Vital Signs/I&O 01/01/19 01/01/19 01/01/19 01/01/19 06:27 07:00 07:00 07:47 Temp 37.0 Pulse 75 71 78 Resp 13 14 B/P (MAP) 115/51 (72) 126/60 (82) Pulse Ox 95 93 96 O2 Delivery Nasal Cannula Room Air Nasal Cannula O2 Flow Rate 1.50 2.00 01/01/19 01/01/19 01/01/19 01/01/19 08:00 08:10 09:00 10:00 Pulse 86 78 86 Resp 21 16 21 B/P (MAP) 106/90 (95) 151/62 (91) 124/48 (73) Pulse Ox 94 95 93 92 O2 Delivery Nasal Cannula Nasal Cannula Nasal Cannula Nasal Cannula O2 Flow Rate 2.00 2.00 2.00 2.00 01/01/19 01/01/19 01/01/19 01/01/19 10:50 11:00 12:00 12:15 Temp 37.0 Pulse 77 Resp 13 B/P (MAP) 122/64 (83) Pulse Ox 95 96 95 O2 Delivery Nasal Cannula Nasal Cannula Nasal Cannula O2 Flow Rate 1.50 2.00 2.00 01/01/19 01/01/19 01/01/19 01/01/19 13:00 13:00 14:00 14:25 Pulse 88 81 81 Resp 43 14 B/P (MAP) 136/63 (87) 169/46 (87) Pulse Ox 95 97 95 O2 Delivery Nasal Cannula Nasal Cannula Nasal Cannula O2 Flow Rate 2.00 2.00 1.50 01/01/19 01/01/19 01/01/19 01/01/19 15:00 16:00 16:00 16:30 Temp 36.5 Pulse 88 85 Resp 22 23 B/P (MAP) 159/69 (99) 140/73 (95) Pulse Ox 99 98 97 O2 Delivery Nasal Cannula Nasal Cannula Nasal Cannula O2 Flow Rate 2.00 2.00 2.00 01/01/19 17:00 Pulse 90 Resp 20 B/P (MAP) 150/71 (97) O2 Delivery Nasal Cannula O2 Flow Rate 2.00 01/01/19 00:00 Intake Total 1000 ml Balance 1000 ml Capillary Refill : Less Than 3 Seconds Constitutional: AAO x 3, well-developed, well-nourished HEENT: hearing is well preserved, oral hygience is good Respiratory: No accessory muscle use, No respiratory distress; chest expansion is symmetric, chest is bilaterally symmetric, other (scattered rhonchi; prolonged expiratory phase; frequent harsh productive cough) Cardiovascular: regular rate-rhythm; No JVD; S1 and S2 Gastrointestinal: No tender; soft, hernia (large abdominal) Rectal: deferred Extremities: no lower extremity edema bilateral Neurologic/Psychiatric: other (left sided weakness) Skin: No rash on exposed areas, No ulcerations on exposed areas Data Review Labs Laboratory Tests 12/31/18 18:56: White Blood Count 6.0, Red Blood Count 3.25L, Hemoglobin 10.3L, Hematocrit 32L, Mean Corpuscular Volume 99, Mean Corpuscular Hemoglobin 32, Mean Corpuscular Hemoglobin Concent 32, Red Cell Distribution Width 14.7H, Platelet Count 252, Mean Platelet Volume 9.3, Neutrophils (%) (Auto) 64, Lymphocytes (%) (Auto) 19, Monocytes (%) (Auto) 14H, Eosinophils (%) (Auto) 2, Basophils (%) (Auto) 0, Neutrophils # (Auto) 3.8, Lymphocytes # (Auto) 1.2, Monocytes # (Auto) 0.8, Eosinophils # (Auto) 0.1, Basophils # (Auto) 0.0, Prothrombin Time 14.7, INR Comment 1.1, Activated Partial Thromboplast Time 32, D-Dimer 2.05H, Sodium Level 142, Potassium Level 4.4, Chloride Level 105, Carbon Dioxide Level 25, Anion Gap 12, Blood Urea Nitrogen 35H, Creatinine 1.88H, Estimat Glomerular Filtration Rate 26, BUN/Creatinine Ratio 19, Glucose Level 113H, Calcium Level 9.2, Corrected Calcium 9.4, Total Bilirubin 0.2, Aspartate Amino Transf (AST/SGOT) 19, Alanine Aminotransferase (ALT/SGPT) 10, Alkaline Phosphatase 94, Troponin I < 0.028, Total Protein 6.7, Albumin 3.7 12/31/18 20:04: Urine Color YELLOW, Urine Clarity CLEAR, Urine pH 5, Urine Specific [place] 1.010L, Urine Protein NEGATIVE, Urine Glucose (UA) NEGATIVE, Urine Ketones NEGATIVE, Urine Nitrite NEGATIVE, Urine Bilirubin NEGATIVE, Urine Urobilinogen NORMAL, Urine Leukocyte Esterase NEGATIVE, Urine RBC (Auto) NEGATIVE, Urine RBC NONE, Urine WBC NONE, Urine Squamous Epithelial Cells 2-5, Urine Crystals NONE, Urine Bacteria NEGATIVE, Urine Casts PRESENT, Urine Hyaline Casts 10-25H, Urine Mucus NEGATIVE, Urine Culture Indicated NO 01/01/19 03:00: White Blood Count 4.6, Red Blood Count 2.79L, Hemoglobin 8.7L, Hematocrit 28L, Mean Corpuscular Volume 100H, Mean Corpuscular Hemoglobin 31, Mean Corpuscular Hemoglobin Concent 31L, Red Cell Distribution Width 14.7H, Platelet Count 205, Mean Platelet Volume 9.0, Neutrophils (%) (Auto) 54, Lymphocytes (%) (Auto) 29, Monocytes (%) (Auto) 15H, Eosinophils (%) (Auto) 2, Basophils (%) (Auto) 0, Neutrophils # (Auto) 2.5, Lymphocytes # (Auto) 1.3, Monocytes # (Auto) 0.7, Eosinophils # (Auto) 0.1, Basophils # (Auto) 0.0, Sodium Level 144, Potassium Level 4.2, Chloride Level 111H, Carbon Dioxide Level 21, Anion Gap 12, Blood Urea Nitrogen 34H, Creatinine 1.51H, Estimat Glomerular Filtration Rate 34, BUN/Creatinine Ratio 23, Glucose Level 100, Calcium Level 8.5, Phosphorus Level 3.9, Magnesium Level 1.9, Triglycerides Level 148, Cholesterol Level 144, LDL Cholesterol Direct 87, VLDL Cholesterol 30, HDL Cholesterol 30L 01/01/19 09:20: Troponin I 0.036H 01/01/19 16:10: Troponin I < 0.028 Radiology NAME: JUDITH SPRINGER [facility] REC#: [id number] PT STATUS: ADM Cheryl : 1945 PHYSICIAN: KELSIE CORONADO DO ADMIT DATE: 12/31/18/ICU Signed Date of Exam: 01/01/19 CHEST 1 VIEW, AP/PA ONLY INDICATION: Dyspnea. TECHNIQUE: Single view chest 3:05 AM. CORRELATION STUDY: 12/31/2018 FINDINGS: Heart size is stable. Vasculature slightly increased from prior study. Mildly prominent interstitial markings. There is some blunting of the right costophrenic angle may reflect a small pleural effusion. Minimal atelectasis or perhaps developing infiltrate right lung base not excluded. IMPRESSION: 1. Stable heart size with slight increase in the pulmonary vascularity 2. Likely small right pleural effusion with presence of minimal atelectasis or developing infiltrate right lung base. Follow up imaging if clinically warranted. Dictated by: Dictated on workstation # [id number] Dict: 01/01/19 0811 Trans: 01/01/19 1056 Interpreted by: OVIDIO DE LOS SANTOS DO Electronically signed by: OVIDIO DE LOS SANTOS DO 01/01/19 1056 ECG Impression ECG Initial ECG Rhythm: Normal Sinus A/P-Cardiology Assessment/Admission Diagnosis Episode of chest discomfort without any distinct evidence of ACS. Pt reports symptoms similar to previous symptoms of GERD. Has h/o HH CAD. Mild to moderate nonobstructive coronary artery disease on card cath of 2010. Stress test in September 2014: extracardiac attenuation but no significant ischemia or infarction. Echocardiogram Nov 2016 showed mild diastolic dysfunction, ejection fraction of 70-75% percent, PA pressure 25 mmHg Peripheral vascular disease with h/o interventions. Last peripheral angio in Nov [address] Cortes: infrarenal abdominal aortic aneurysm, moderate in size. Patent kissing iliac stent with mild to moderate in-stent restenosis at the left iliac artery. Mild to moderate disease bilaterally down to the trifurcation with small vessel disease distally History of severe carotid stenosis. Right CEA with perioperative CVA May 2014 (chronic L-sided weakness). Reported to have occluded R carotid and mod disease on the left that is followed by Dr Stevenson in [place], [place]. History of GI bleed, Anemia, treated in [facility] in June 2014 Infrarenal aneurysm, small in size, most recent CTA abdomen and pelvis done December 2017 showed mild aneurysmal dilatation of the distal abdominal aorta measuring up to 3.37 m AP diameter Hypertension Hyperlipidemia Chronic tobaccoism (smokes cigarettes) H/o COPD CKD 3-4 History of atypical lobular hyperplasia of the left breast, previously on tamoxifen Discussion and Recomendations Chest discomfort, by description seem to be more suggestive of GERD or PUD Serial card enzymes: <0.028, 0.036, <0.028. This pattern excludes ac KS Continue current medication regimen including ASA Monitor labs Smoking cessation advised I discussed her case with Dr Coronado earlier today Clinical Quality Measures DVT/VTE Risk/Contraindication: Risk Factor Score Per Nursin RFS Level Per Nursing on Admit: 4+=Very High CAROL COY MD FACP [facility] Jan 01, 2019 12:23 DELIO CROW [employer] OPERATOR Jan 01, 2019 15:11
--- NOTE | 2019-01-01 12:33 | Diagnostic Imaging Report ---
PROCEDURE: MR imaging of the brain without contrast. TECHNIQUE: Multiplanar, multisequence MR imaging of the brain was performed without contrast. INDICATION: Left-sided weakness. COMPARISON: Correlation is made with head CT performed one day earlier as well as prior MRI of the brain from 01/30/2016. FINDINGS: Diffusion-weighted images are without diffusion restriction to suggest acute ischemia. There continues to be absence of the normal expected flow-void in the right distal internal carotid artery, consistent with probable occlusion. This was present on the exam from 2015. There are some periventricular white matter changes noted, consistent with chronic microvascular ischemia. Old lacunar infarcts in bilateral basal ganglia are noted. No acute intra-axial or extra-axial hemorrhage is detected. Corpus callosum is unremarkable. The sella and parasellar structures are unremarkable. IMPRESSION: Stable chronic changes when compared with exam from 01/30/2016. No acute intracranial process is detected. Dictated by: Dictated on workstation # [id number]
[2019-01-01] MEDS ORDERED: KRIL1CAP22 PO (13:21)
[2019-01-01] MEDS ORDERED: MULT1TAB69 PO (13:21)
[2019-01-01] MEDS ORDERED: ACET-2267 PO (13:21)
[2019-01-01] MEDS ORDERED: POLY17PO31 PO (13:21)
[2019-01-01] MEDS ORDERED: FERR325T18 PO (13:21)
[2019-01-01] MEDS ORDERED: DOCU-143 PO (13:21)
[2019-01-01] MEDS ORDERED: CALC-6 PO (13:21)
[2019-01-01] MEDS ORDERED: MAGN400O7 PO (13:21)
--- NOTE | 2019-01-01 13:26 | NUR ---
Initial visit: Pt is Islam. Offered compassionate presence and empathic listening.
[2019-01-01] MEDS ORDERED: FLUT1BLS3 INH (13:31)
[2019-01-01] MEDS ORDERED: RT-ALBUINH IH (13:31)
--- NOTE | 2019-01-01 13:41 | NUR ---
FAMILY BROUGHT IN A LIST OF MEDICATIONS. I CALLED AND WENT OVER THAT LIST WELL COMPARING IT TO THE EXT MED HX WITH THE PATIENTS DAUGHTER JYOTI. SHE VERIFIED THE NECESSARY CHANGES. THE LIST DOES NOT INCLUDE THE 5 DAY THERAPY OF LEVAQUIN THE PATIENT WAS ON FILLED 12-28-18 OR GABAPENTIN AND BUSPIRONE. JYOTI VERIFIED SHE IS TAKING THESE AND I ADDED THEM TO THE MED REC. ON THE LIST THAT THE PATIENT IS NO LONGER TAKING ARE AMITRIPTYLINE AND SPIRONOLACTONE, I REMOVED THEM FROM THE MED REC. THE FOLLOWING ARE PAST DUE FOR REFILL, I NOTED THE DATES ON THE MED REC: 09-13-18 LATANOPROST EYE DROP OU HS 08-03-18 TRELEGY DAILY (DAUGHTER STATES SHE IS UNSURE IF SHE USES IT REGULARLY BUT SHE HAS NOT REFILLED IT FOR AWHILE) 11-06-17 BACLOFEN 10MG BID #60 (THIS WAS FILLED AT [facility], DAUGHTER STATES SHE DOES NOT TAKE THIS OFTEN BUT DOES HAVE IT ON HAND IF NEEDED) THE FOLLOWING ARE REPORTED ACTIVE PRN MEDS BY THE DAUGHTER HOWEVER I WAS UNABLE TO VERIFY LAST FILL DATES WITH THE PHARMACY, THEY ARE NOT ON THE EXT MED HX: PROAIR INHALER DUONEB NEBULIZER SOLUTION FLONASE NASAL SPRAY ZOFRAN HER POTASSIUM WAS FILLED 10MEQ 2 BID #120 12-07-18 HOWEVER THE DAUGHTER STATES THEY ONLY TAKE 1 TABLET ONCE DAILY. OTC MEDS INCLUDE: CALCIUM +D DAILY COLACE 100MG BID FERROUS SULFATE 325MG DAILY SHAYY RED DAILY MILK OF MAG PRN MIRALAX PRN MTV DAILY TYLENOL 1000MG PRN
--- NOTE | 2019-01-01 14:06 | Occupational Therapy Eval ---
OT Evaluation-General/PLF Medical Diagnosis Admission Date Dec 31, 2018 at 20:29 Medical Diagnosis: stroke like symptoms, generalized weakness Onset Date: Dec 31, 2018 Therapy Diagnosis Therapy Diagnosis: impaired self care skills Height/Weight Height (Feet): 5 Height (Inches): 8.00 Weight (Pounds): 155 Weight (Ounces): 0.0 Precautions Precautions/Isolations: Fall Prevention, Standard Precautions Safety Interventions: Bed Exit Alarm Referral Physician: Tomas Medical History Pertinent Medical History: Arthritis, CAD, COPD, CVA, GERD, HTN, PVD, Smoking Additional Medical History sleep apnea, high cholesterol, seizure disorder, abdominal hernia, GERD, fibromyalgia, chronic back pain, glaucoma, breast cancer Current History Pt presented to Social History Home: Single Level Current Living Status: pt states she has 24 hr care Entry Into Home: Level Entry ADL-Prior Level of Function SCALE: Activities may be completed with or without assistive devices. 6-Dhapvwfpjk-bzdvith completes the activity by him/herself with no assistance from a helper. 5-Set-up or Clean-up Assistance-helper sets up or cleans up; patient completes activity. [place] assists only prior to or following the activity. 4-Supervision or Touching Assistance-helper provides verbal cues and/or touching/steadying and/or contact guard assistance as patient completes activity. Assistance may be provided throughout the activity or intermittently. 3-Partial/Moderate Assistance-helper does LESS THAN HALF the effort. [place] lifts, holds or supports trunk or limbs, but provides less than half the effort. 2-Substantial/Maximal Assistance-helper does MORE THAN HALF the effort. [place] lifts or holds trunk or limbs and provides more than half the effort. 1-Zqnbaalft-iixrac does ALL the effort. Patient does none of the effort to complete the activity. Or, the assistance of 2 or more helpers is required for the patient to complete the activity. If activity was not attempted, code reason: 7-Patient Refused. 9-Not Applicable-not attempted and the patient did not perform the activity before the current illness, exacerbation or injury. 10-Not Attempted due to Environmental Limitations-(lack of equipment, weather restraints, etc.). 88-Not Attempted due to Medical Conditions or Safety Concerns. ADL PLOF Comments Pt states she is normally able to transfer herself and can complete dressing, grooming, and eating, but has assist as needed. Assist for bathing. Uses FWW for mobility. Self Care: Needed Some Help Functional Cognition: Needed Some Help DME/Equipment: Bath Bench, Grab Bars, Tall Toilet, Tub/Shower OT Current Status Subjective Pt sitting in chair, agrees to therapy. No c/o pain. Mental Status/Objective Patient Orientation: Person, Place Attachments: IV, Oxygen, Telemetry Current Hand Dominance: Right Upper Extremity ROM Right UE grossly WFL Left UE ROM impaired secondary to prior CVA Upper Extremity Coordination Impaired left UE ADL-Treatment ADL-Current Pt sitting in chair, participated in UE assessment. Pt transferred to [facility] with FWW with minimal assistance and assist to manage lines. Pt moves slowly and requires cues for safety. Assist for toileting hygiene. Pt requests to return to bed. Completed sit to supine with min assist for left LE. Pt resting in bed with needs after session, PT present. Eating (QC): 5 (Pt reports feeding self after set up.) Toilet Transfer (QC): 3 Education OT Patient Education: Rehab process Teaching Recipient: Patient Teaching Methods: Discussion Response to Teaching: Verbalize Understanding OT Short Term Goals Short Term Goals 1=Demonstrate adherence to instructed precautions during ADL tasks. 2=Patient will verbalize/demonstrate understanding of assistive devices/modifications for ADL. 3=Patient will improve strength/tolerance for activity to enable patient to perform ADL's. OT Senior Care Goals Senior Care Goals Time Frame: Jan 15, 2019 Oral Hygiene (QC): 5 Upper Body Dressing (QC): 4 Lower Body Dressing (QC): 4 Toileting Hygiene (QC): 4 Toilet/Commode Transfer (QC): 6 Additional Goals: 1-Demonstrate ADL Tasks, 2-Verbalize Understanding, 3-Im proveStrength/Mariano 1=Demonstrate adherence to instructed precautions during ADL tasks. 2=Patient will verbalize/demonstrate understanding of assistive devices/modifications for ADL. 3=Patient will improve strength/tolerance for activity to enable patient to perform ADL's. OT Education/Plan Problem List/Assessment Assessment: Decreased Activ Tolerance, Decreased UE Strength, Dependent Transfers, Impaired Coordination, Impaired Funct Balance, Impaired I ADL's, Im paired Self-Care Skills, Restricted Funct UE ROM Pt to benefit from skilled OT intervention while hospitalized to increase stren gth, ADL performance, and safety to allow safe return home. Discharge Recommendations Plan/Recommendations: Continue POC Treatment Plan/Plan of Care Treatment,Training & Education: Yes Patient would benefit from OT for education, treatment and training to promote independence in ADL's, mobility, safety and/or upper extremity function for ADL's. Plan of Care: ADL Retraining, Functional Mobility, UE Funct Exercise/Act Treatment Duration: Jan 15, 2019 Frequency: 5 times per week Estimated Hrs Per Day: .25 hour per day Rehab Potential: Fair Time/GCodes Start Time: 13:40 Stop Time: 14:00 Total Time Billed (hr/min): 20 Billed Treatment Time 1 visit, HOLDEN(20minutes) RYAN ANGELO OT Jan 01, 2019 14:06
[2019-01-01] MEDS ORDERED: FLUTICASONE NASAL SPRAY (FLONASE) 16 GM BTL NS PRN (14:15)
[2019-01-01] MEDS ORDERED: MILK OF MAGNESIA 400 MG/5 ML 30 ML UDC PO PRN (14:15)
[2019-01-01] MEDS ORDERED: NON-FORMULARY MEDICATION 1 EA EA (Polyethylene Glycol 3350 17 GM) PO PRN (14:15)
--- NOTE | 2019-01-01 14:28 | Physical Therapy Evaluation ---
PT Evaluation-General Medical Diagnosis Admission Date Dec 31, 2018 at 20:29 Medical Diagnosis: weakness Onset Date: Dec 31, 2018 Therapy Diagnosis Therapy Diagnosis: impaired mobility, strength, endurance Height/Weight Height (Feet): 5 Height (Inches): 8.00 Weight (Pounds): 155 Weight (Ounces): 0.0 Precautions Precautions/Isolations: Fall Prevention, Standard Precautions Weight Bear Status Right Lower Extremity: Right Weight Bearing/Tolerated Left Lower Extremity: Left Weight Bearing/Tolerated Referral Physician: Elicia Marin MD Reason for Referral: Evaluation/Treatment Medical History Pertinent Medical History: Arthritis, CAD, COPD, CVA, GERD, HTN, PVD, Smoking Additional Medical History Past Medical History Surgeries: Abdominal, Breast, Gallbladder, Hysterectomy, Orthopedic, Rectal, Tonsillectomy, Vascular Surgery Respiratory: COPD, Sleep Apnea Currently Using CPAP: No Currently Using BIPAP: No Cardiac: Coronary Artery Disease, High Cholesterol, Hypertension, Peripheral Vascular Neurological: Seizure Disorder, Stroke, TIA 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: No Sexually Transmitted Disease: No HIV/AIDS: No Female 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 Disorders: Denies Hysterectomy, Menopausal Gastrointestinal: Abdominal Hernia, Gastroesophageal Reflux, Chronic Constipation, Hemorrhoids, Polyps Musculoskeletal: Arthritis, Fibromyalgia, Chronic Back Pain, Fractures HEENT: Glaucoma Hearing Impairment: Denies Cancer: Breast Did You Recieve Any Treatments: Yes What Type of Treatment Did You: Chemotherapy Psychosocial: Anxiety Skin/Integumentary: Recent Skin Changes History of Blood Disorders: Yes (ANEMIA) Adverse Reaction to Blood [place]: No Reviewed History: Yes Social History Home: Single Level Current Living Status: Alone (but has a lot of assistance) Entry Into Home: Ramp Prior Prior Level of Function SCALE: Activities may be completed with or without assistive devices. 8-Pshdnvnzwh-uphkwmp completes the activity by him/herself with no assistance from a helper. 5-Set-up or Clean-up Assistance-helper sets up or cleans up; patient completes activity. [place] assists only prior to or following the activity. 4-Supervision or Touching Assistance-helper provides verbal cues and/or touching/steadying and/or contact guard assistance as patient completes activity. Assistance may be provided throughout the activity or intermittently. 3-Partial/Moderate Assistance-helper does LESS THAN HALF the effort. [place] lifts, holds or supports trunk or limbs, but provides less than half the effort. 2-Substantial/Maximal Assistance-helper does MORE THAN HALF the effort. [place] lifts or holds trunk or limbs and provides more than half the effort. 9-Zmqhkgixu-yctdxf does ALL the effort. Patient does none of the effort to complete the activity. Or, the assistance of 2 or more helpers is required for the patient to complete the activity. If activity was not attempted, code reason: 7-Patient Refused. 9-Not Applicable-not attempted and the patient did not perform the activity before the current illness, exacerbation or injury. 10-Not Attempted due to Environmental Limitations-(lack of equipment, weather restraints, etc.). 88-Not Attempted due to Medical Conditions or Safety Concerns. Bed Mobility: 6 Transfers (B,C,W/C): 6 Gait: 6 Stairs: 6 Indoor Mobility (Ambulation): Independent used rolling walker PT Evaluation-Current Subjective Patient in bed pre tx, agrees to PT, has no complaints of pain Pt/Family Goals to be independent at home Objective Patient Orientation: Person, Place, Situation Attachments: Oxygen, IV ROM/Strength ROM Lower Extremities WNL Strength Lower Extremities LLE 3+/5 gross, RLE 4+/5 gross Neuromuscular (Tone, Coordination, Reflexes) decreased coordination in LLE with steps during ambulation Sensory Hearing: Functional Sensation Right Lower Extremit: Intact Sensation Left Lower Extremity: Intact Transfers Roll Left to Right (QC): 6 Sit to Lying (QC): 6 Lying to Sitting/Side of Bed(Q: 6 Sit to Stand (QC): 3 Chair/Mkr-ll-Vjmng Xfer(QC): 3 Min assist for sit to stand and transfers, cues for hand placement and safety. Gait Does the Patient Walk?: Yes Mode of Locomotion: Walk Anticipated Mode of Locomotion: Walk Walk 10 feet (QC): 3 Distance: 25' Gait Assistive Device: FWW Comments/Gait Description Patient needs assist with balance and has poor step through and foot clearance on the left side. Balance Sitting Static: Normal Sitting Dynamic: Normal Standing Static: Fair Standing Dynamic: Poor Treatment supine BLE exercises x15 (AP, HS, QS) Assessment/Needs Patient has impaired mobility, strength, endurance. Weak on the left side and poor coordination in the LLE during ambulation. Rehab Potential: Fair PT Post Tronic Machine Operator Goals Post Tronic Machine Operator Goals PT Post Tronic Machine Operator Goals Time Frame: Jan 08, 2019 Sit to Lying (QC): 6 Lying-Sitting on Side/Bed(QC): 6 Sit to Stand (QC): 6 Roll Left to Right (QC): 6 Chair/Wzd-do-Feldw Xfer(QC): 6 Walk 10 feet (QC): 4 (SBA) Walk 50ft with 2 Turns (QC): 4 (SBA) Gait Assistive Device: FWW PT Plan Problem List Problem List: Activity Tolerance, Functional Strength, Safety, Balance, Gait, Transfer Treatment/Plan Treatment Plan: Continue Plan of Care Treatment Plan: Education, Functional Activity Mariano, Functional Strength, Gait, Safety, Therapeutic Exercise, Transfers Treatment Duration: Jan 08, 2019 Frequency: 6 times per week Estimated Hrs Per Day: .25 hour per day Patient and/or Family Agrees t: Yes Safety Risks/Education Patient Education: Gait Training, Transfer Techniques, Correct Positioning, Safety Issues Teaching Recipient: Patient Teaching Methods: Demonstration, Discussion Response to Teaching: Reinforcement Needed Discharge Recommendations Plan Patient will perform bed mobility and transfer training,balance and endurance training, functional strengthening, stair training, gait training, and education, to improve functional mobility and independence at home. Therapy Discharge Recommendati: Scheduled Assistance, Assisted Living, Other, See Comments (possibly rehab) Time/GCodes Time In: 1400 Time Out: 1415 Total Billed Treatment Time: 15 Total Billed Treatment 1 visit LADARIUS MICHELLE PT Jan 01, 2019 14:28
[2019-01-01] MEDS ORDERED: POLYETHYLENE GLYCOL 17 GM (MIRALAX) PACK PO PRN (14:30)
[2019-01-01] MEDS ORDERED: guaiFENesin/DM (ROBITUSSIN DM) 10 ML UDC ONE (20:54)
[2019-01-01] MEDS ORDERED: diphenhydrAMINE 25 MG TAB (BENADRYL) PO ONE ×2 (20:55→21:45)
[2019-01-01] MEDS ORDERED: LATANOPROST 0.005% (XALATAN) OPHTH SOLN 2.5 ML OU SCH (21:00)
[2019-01-01] MEDS ORDERED: DIVALPROEX 250 MG DELAYED RELEASE (DEPAKOTE) TAB PO SCH (21:00)
[2019-01-01] MEDS ORDERED: NON-FORMULARY MEDICATION 1 EA EA (Buspirone HCl 5 MG) PO SCH (21:00)
[2019-01-01] MEDS: GABAPENTIN 300 MG (NEURONTIN) CAP PO SCH (21:06)
[2019-01-01] MEDS: PANTOPRAZOLE 40 MG (PROTONIX) TAB PO SCH (21:06)
[2019-01-01] MEDS: busPIRone 5 MG (BUSPAR) TAB PO SCH (21:06)
[2019-01-02] VITALS (12 sets, daily range): BP systolic 121–155; BP diastolic 47–89
[2019-01-02] MEDS: RT-ALBUTEROL SULF 2.5 MG/3 ML PRE-MIX VIAL INH SCH ×4 (02:26→14:47)
[2019-01-02] MEDS: guaiFENesin/DM (ROBITUSSIN DM) 10 ML UDC PO PRN ×2 (03:00→14:13)
[2019-01-02 03:34] LABS: BASOPHILS % (AUTO) 0 % (0-10); EOSINOPHILS # (AUTO) 0.1 10^3/uL (0.0-0.3); EOSINOPHILS % (AUTO) 1 % (0-10); HEMATOCRIT 29 % (35-52); HEMOGLOBIN 9.3 G/DL (11.5-16.0); LYMPHOCYTES # (AUTO) 1.1 X 10^3 (1.0-4.0); LYMPHOCYTES % (AUTO) 22 % (12-44); MEAN CORPUSCULAR HEMOGLOBIN 31 PG (25-34); MEAN CORPUSCULAR HGB CONC 32 G/DL (32-36); MEAN CORPUSCULAR VOLUME 99 FL (80-99); MEAN PLATELET VOLUME 9.2 FL (7.4-10.4); MONOCYTES # (AUTO) 0.5 X 10^3 (0.0-1.0); MONOCYTES % (AUTO) 9 % (0-12); NEUTROPHILS # (AUTO) 3.6 X 10^3 (1.8-7.8); NEUTROPHILS % (AUTO) 69 % (42-75); PLATELET COUNT 219 10^3/uL (130-400); RED CELL DISTRIBUTION WIDTH 14.1 % (10.0-14.5); WHITE BLOOD COUNT 5.2 10^3/uL (4.3-11.0)
[2019-01-02 03:57] LABS: CALCIUM 8.6 MG/DL (8.5-10.1); CREATININE SERUM 0.98 MG/DL (0.60-1.30); PHOSPHORUS 3.5 MG/DL (2.3-4.7); POTASSIUM 3.6 MMOL/L (3.6-5.0)
[2019-01-02] MEDS: NS IV 1000 ML 1,000 ML IV SCH ×2 (06:17→14:42)
[2019-01-02] MEDS: PANTOPRAZOLE 40 MG (PROTONIX) TAB PO SCH (06:51)
[2019-01-02] MEDS ORDERED: MULTIVIT W/MINERALS TAB (THERAGRAN M) PO SCH (07:00)
[2019-01-02] MEDS ORDERED: FERROUS SULF 325 MG (IRON) TAB PO SCH (08:00)
--- NOTE | 2019-01-02 08:12 | Diagnostic Imaging Report ---
EXAMINATION: Chest 1 view HISTORY: Shortness of breath. FINDINGS: Comparison is 01/02/2019. The lungs are clear. No edema. No pneumonia. No pleural effusion. No pneumothorax. Heart is normal in size. IMPRESSION: 1. Clear lungs. Dictated by: Dictated on workstation # [id number]
[2019-01-02] MEDS: GABAPENTIN 300 MG (NEURONTIN) CAP PO SCH (08:28)
[2019-01-02] MEDS: ASPIRIN 81 MG CHEW (CHILDREN'S ASA) PO SCH (08:28)
[2019-01-02] MEDS: NICOTINE 21 MG (NICODERM) PATCH TD SCH (08:29)
[2019-01-02] MEDS: busPIRone 5 MG (BUSPAR) TAB PO SCH (08:29)
[2019-01-02] MEDS: ENOXAPARIN 30 MG/0.3 ML (LOVENOX) SYR SC SCH (08:29)
[2019-01-02] MEDS ORDERED: NEBIVOLOL 5 MG TAB (BYSTOLIC) PO SCH (09:00)
[2019-01-02] MEDS ORDERED: SERTRALINE 100 MG (ZOLOFT) TAB PO SCH (09:00)
--- NOTE | 2019-01-02 10:37 | Physical Therapy Daily Note ---
PT Daily Note-Current Subjective Pt agreeable to PT session. States she has 24 hour one on one paid care at home and does not feel she needs to go to a rehab unit as she feels she is doing good enough to go home with 24 hour care and home health. Pain Numeric Pain Scale: 0-No Pain Appearance Upon arrival, pt in bed awake and alert. Nursing present during part of tx session. At end of session, pt sitting up in recliner with call light, phone and bedside table within reach, denies need for BRP. Mental Status Patient Orientation: Person, Place, Time, Eyes Open Attachments: IV Transfers SCALE: Activities may be completed with or without assistive devices. 3-Nfxsuubhjq-lypfzki completes the activity by him/herself with no assistance from a helper. 5-Set-up or Clean-up Assistance-helper sets up or cleans up; patient completes activity. [place] assists only prior to or following the activity. 4-Supervision or Touching Assistance-helper provides verbal cues and/or touching/steadying and/or contact guard assistance as patient completes activity. Assistance may be provided throughout the activity or intermittently. 3-Partial/Moderate Assistance-helper does LESS THAN HALF the effort. [place] lift s, holds or supports trunk or limbs, but provides less than half the effort. 2-Substantial/Maximal Assistance-helper does MORE THAN HALF the effort. [place] lifts or holds trunk or limbs and provides more than half the effort. 1-Tjcziavli-xymeho does ALL the effort. Patient does none of the effort to complete the activity. Or, the assistance of 2 or more helpers is required for the patient to complete the activity. If activity was not attempted, code reason: 7-Patient Refused. 9-Not Applicable-not attempted and the patient did not perform the activity before the current illness, exacerbation or injury. 10-Not Attempted due to Environmental Limitations-(lack of equipment, weather restraints, etc.). 88-Not Attempted due to Medical Conditions or Safety Concerns. Roll Left to Right (QC): 6 Sit to Lying (QC): 4 (SBA provided for safety, slight unsteadiness but no LOB in sitting) Sit to Stand (QC): 4 (CGA provided for safety) Assist to grasp manager personal of walker with L hand once standing Weight Bearing Right Lower Extremity: Right Weight Bearing/Tolerated Left Lower Extremity: Left Weight Bearing/Tolerated Gait Training Does the Patient Walk?: Yes Distance: 90 Walk 10 feet (QC): 4 (CGA) Walk 50 ft with 2 Turns(QC): 4 (CGA) Gait Persons Needed: 1 Gait Assistive Device: FWW decreased step length and height, slight unsteadiness but able to maintain balance, path deviation, slight ataxic movements to LE's, LLE weakness and decreased coordination Treatments education, safety, bed mobility, transfers, gait, balance, strength, functional mobility, activity tolerance Assessment Current Status: Good Progress Most assist required this session was CGA, gait increased, transfers and bed mobility improved PT [place] Paralegal Goals [place] Paralegal Goals PT [place] Paralegal Goals Time Frame: Jan 08, 2019 Sit to Lying (QC): 6 Lying-Sitting on Side/Bed(QC): 6 Sit to Stand (QC): 6 Roll Left to Right (QC): 6 Chair/Jrb-of-Cnmzo Xfer(QC): 6 Walk 10 feet (QC): 4 (SBA) Walk 50ft with 2 Turns (QC): 4 (SBA) Gait Assistive Device: FWW PT Plan Treatment/Plan Treatment Plan: Continue Plan of Care Treatment Plan: Education, Functional Activity Mariano, Functional Strength, Gait, Safety, Therapeutic Exercise, Transfers Treatment Duration: Jan 08, 2019 Frequency: 6 times per week Estimated Hrs Per Day: .25 hour per day Patient and/or Family Agrees t: Yes Safety Risks/Education Patient Education: Gait Training, Transfer Techniques, Safety Issues Teaching Recipient: Patient Teaching Methods: Discussion Response to Teaching: Verbalize Understanding, Return Demonstration Discharge Recommendations Therapy Discharge Recommendati: 24 Hour Supervision (pt has pd CG's, recommend HH services PT, OT, nursing) Time/GCodes Time In: 1012 Time Out: 1045 Total Billed Treatment Time: 33 Total Billed Treatment 1 visit, FA x15 min, GT x18 min TYLER IRVIN HOSTED SERVICES ANALYST Jan 02, 2019 10:37
[2019-01-02] MEDS ORDERED: ATOR40TA70 PO (13:17)
--- NOTE | 2019-01-02 13:29 | Discharge Summary ---
Discharge Summary Reconcile Patient Problems Problems Reviewed?: Yes Instructions for Patient Via [employer], Assessment/Instructions Take medications as prescribed. Follow up with Dr. Coronado. Physician to follow Patient: Ivonne Discharge Diet for Home: No Restrictions Hospital Course Date of Admission: Dec 31, 2018 at 20:29 Admission Diagnosis : TIA Family Physician/Provider: Date of Discharge: 01/02/19 Discharge Diagnosis: TIA Hospital Course: Sarika Springer is a 73-year-old female with a history of CVA with residual left- sided weakness who presented with worsening of her deficits. Her MRI did not show any signs of a new ischemic or hemorrhagic event. Her weakness resolved spontaneously. Her course was complicated by an acute kidney injury which resolved with IV fluid resuscitation. She also had a very minimal increase in troponin. Cardiology was consulted and felt this was an aberrant result and no further workup was needed. She did have an echocardiogram which revealed heart failure with preserved ejection fraction as evidenced by a grade 1 diastolic dysfunction. Physical therapy was consulted and recommended ongoing therapy with [facility]. She will follow-up with Dr. Coronado in about one week. Labs and Pending Lab Test: Laboratory Tests 01/01/19 16:10: Troponin I < 0.028 01/02/19 03:20: White Blood Count 5.2, Red Blood Count 2.96L, Hemoglobin 9.3L, Hematocrit 29L, Mean Corpuscular Volume 99, Mean Corpuscular Hemoglobin 31, Mean Corpuscular Hemoglobin Concent 32, Red Cell Distribution Width 14.1, Platelet Count 219, Mean Platelet Volume 9.2, Neutrophils (%) (Auto) 69, Lymphocytes (%) (Auto) 22, Monocytes (%) (Auto) 9, Eosinophils (%) (Auto) 1, Basophils (%) (Auto) 0, Neutrophils # (Auto) 3.6, Lymphocytes # (Auto) 1.1, Monocytes # (Auto) 0.5, Eos inophils # (Auto) 0.1, Basophils # (Auto) 0.0, Sodium Level 139, Potassium Level 3.6, Chloride Level 107, Carbon Dioxide Level 22, Anion Gap 10, Blood Urea Nitrogen 21H, Creatinine 0.98, Estimat Glomerular Filtration Rate 55, BUN/Creat inine Ratio 21, Glucose Level 103, Calcium Level 8.6, Phosphorus Level 3.5, Magnesium Level 2.0 Microbiology 10/18/19 Gram Stain - Final, Resulted 01/01/19 Sputum Culture, Resulted Pending Home Meds Active Atorvastatin Calcium 40 Mg Tablet 40 Mg PO DAILY 30 Days Reported Trelegy Ellipta 100-62.5-25 (Fluticasone/Umeclidin/Vilanter) 1 Each Blst.w.dev 1 Puff INH DAILY LAST FILLED 08-03-18 Proair Hfa (Albuterol Sulfate) 1 Puff Puff 2 Puff IH Q4H PRN 1 PUFF = 90 MCG Tylenol Extra Strength (Acetaminophen) 500 Mg Tablet 1,000 Mg PO Q4H PRN Colace (Docusate Sodium) 100 Mg Capsule 100 Mg PO BID Ferrous Sulfate 325 Mg Tablet 325 Mg PO DAILY [place]-3 Krill Oil Sfgl (Krill/Om-3/Dha/Epa/Phospho/Ast) 1 Each Capsule 1 Cap PO DAILY Milk of Magnesia (Magnesium Hydroxide) 400 Mg/5 Ml Oral.susp 30 Ml PO DAILY PRN Multivitamins (Multivitamin) 1 Each Tablet 1 Tab PO DAILY Calcium 600 + Vit D 200 Tablet (Calcium Carbonate/Vitamin D3) 1 Each Tablet 1 Tab PO DAILY Polyethylene Glycol 3350 17 Gm Powd.pack 17 Gm PO DAILY PRN Potassium Chloride 10 Meq Capsule.er 10 Meq PO DAILY Gabapentin 300 Mg Capsule 300 Mg PO BID Levofloxacin 500 Mg Tablet 500 Mg PO DAILY 5 Days FILLED #5 12-28-18 Buspirone HCl 5 Mg Tablet 5 Mg PO BID Losartan Potassium 25 Mg Tablet 25 Mg PO DAILY Bystolic (Nebivolol HCl) 5 Mg Tablet 5 Mg PO DAILY Baclofen 10 Mg Tablet 10 Mg PO BID PRN LAST FILLED #60 11-06-17 Furosemide 40 Mg Tablet 40 Mg PO DAILY Pantoprazole Sodium 40 Mg Tablet.dr 40 Mg PO BID Ondansetron HCl 4 Mg Tablet 4 Mg PO Q8H PRN Iprat-Albut 0.5-3(2.5) mg/3 ml (Ipratropium/Albuterol Sulfate) 3 Ml Ampul.neb 3 Ml IH QID PRN Latanoprost 2.5 Ml Drops 1 Drop OU HS LAST FILLED 09-13-18 Divalproex Sodium 250 Mg Tablet.dr 250 Mg PO HS Sertraline HCl 100 Mg Tablet 200 Mg PO DAILY TAKES 2 (100MG) TABLETS Fluticasone Propionate 16 Gm [place].susp 1 [place] NS BID PRN Consulations Cardiology Patient Allergies: Coded Allergies: Penicillins (Verified Allergy, Unknown, PT HAS RECEIVED ANCEF WITHOUT ISSUE, 05/30/14) meperidine (Verified Allergy, Unknown, 05/30/14) Height (Feet): 5 Height (Inches): 8.00 Weight (Pounds): 155 Weight (Ounces): 0.0 Home Health Need/Face to Face Date of Face to Face: Jan 02, 2019 Clinical Findings: Generalized weakness and fatigue, Instability, Muscle weakness, Shortness of breath, Unsteady gait I have seen Pt phqw-vy-kwdq: Yes Discharged To: Home Diagnosis/Conditions: TIA, history of CVA with residual weakness, debility Problems/Diagnosis/Condition: (1) TIA (transient ischemic attack) (2) Acute kidney injury Patient is Homebound due to: [place] fall risk due to instabilty, Muscle weakness Homebound Status Due to the above stated illness, injury or surgical procedure (medical condition or diagnosis) and associated clinical findings, the patient is homebound because of his/her inability to leave home except with aid of a supportive device and/or person AND leaving the home requires a considerable and taxing effort or is medically contraindicated. Pt req the following assistanc: Aid of another person Home Health Nursing Orders Home Health Services Order: Nursing Services, Territory Outside Sales Manager-Evaluate & Treat, Physical Therapy-Evaluate & Treat Home Health Infusion Therapy Line Start Date: Dec 31, 2018 Therapy Orders Therapy Orders: OT (must have SN or PT order), Physical Therapy Therapy Specific Orders: Eval assistive deivces, Teach enviro modifications/safety, Gait training, Increase strength/endurance Certify Stmt I certify that this patient is under my care and that I, a nurse practitioner or a physician; a physician assistant working with me, had a face to face encounter that - meets the physician face to face encounter requirements with this patient as dated. Discharge Physical Exam General: Alert, Oriented X3, Cooperative, No Acute Distress HEENT: Atraumatic, EOMI, Mucous Memb Moist/[place] Lungs: Clear to Auscultation, Normal Air Movement Heart: Regular Rate, No Murmurs Abdomen: Normal Bowel Sounds, Soft, No Tenderness Extremities: No Edema, No Tenderness/Swelling Skin: No Rashes, No Significant Lesion Neuro: Other (strength 3/5 left upper and lower extremities, strength 4/5 right upper and lower extremities) Psych/Mental Status: Mental Status NL, Mood NL RADHA MCDOWELL MD Jan 02, 2019 13:29
--- NOTE | 2019-01-02 13:36 | NUR ---
PENDING DISCHARGE, ASKED PATIENT WHAT HER CHOICE FOR COMPANY FOR HOME HEALTH. SHE CHOOSES [facility]IA [employer]. CALLED AND TALKED TO REGGIE CHAMBERLAIN ON-CALL, AND SHE WILL CALL FAMILY AT [phone] TO SET UP TIME TO DO INITIAL EVAL.
--- NOTE | 2019-01-02 14:54 | Progress Note - Cardiology ---
Cardiology SOAP Progress Note Subjective: No cp or palp or syncope or shortness of breath She states that she feels well Objective: I&O/Vital Signs 01/02/19 01/02/19 01/02/19 01/02/19 03:00 04:00 04:00 05:00 Pulse 99 91 80 Resp B/P (MAP) 143/65 (91) 138/62 (87) Pulse Ox 98 97 98 97 O2 Delivery Nasal Cannula Nasal Cannula Nasal Cannula Nasal Cannula O2 Flow Rate 2.00 2.00 2.00 2.00 01/02/19 01/02/19 01/02/19 01/02/19 06:00 07:00 07:03 07:38 Temp 37.4 Pulse 4 72 89 Resp 16 18 B/P (MAP) 137/62 (87) 144/66 (92) Pulse Ox 97 97 96 O2 Delivery Nasal Cannula Nasal Cannula Nasal Cannula O2 Flow Rate 2.00 1.00 2.00 01/02/19 01/02/19 01/02/19 01/02/19 07:45 10:47 12:15 13:00 Pulse 80 Pulse Ox 96 94 96 O2 Delivery Nasal Cannula Room Air Nasal Cannula O2 Flow Rate 2.00 2.00 01/02/19 00:00 Intake Total 2050 ml Output Total 1000 ml Balance 1050 ml Weight (Pounds): 155 Weight (Ounces): 0.0 Weight (Calculated Kilograms): [id number] Constitutional: AAO x 3, well-developed, well-nourished Respiratory: No accessory muscle use, No respiratory distress; chest expansion is symmetric, chest is bilaterally symmetric, other (scattered rhonchi; prolonged expiratory phase; frequent harsh productive cough) Cardiovascular: regular rate-rhythm; No JVD; S1 and S2 Gastrointestional: No tender; soft, hernia (large abdominal) Extremities: no lower extremity edema bilateral Neurologic/Psychiatric: other (left sided weakness) Skin: No rash on exposed areas, No ulcerations on exposed areas Results/Procedures: Labs Laboratory Tests 01/01/19 16:10: Troponin I < 0.028 01/02/19 03:20: White Blood Count 5.2, Red Blood Count 2.96L, Hemoglobin 9.3L, Hematocrit 29L, Mean Corpuscular Volume 99, Mean Corpuscular Hemoglobin 31, Mean Corpuscular Hemoglobin Concent 32, Red Cell Distribution Width 14.1, Platelet Count 219, Mean Platelet Volume 9.2, Neutrophils (%) (Auto) 69, Lymphocytes (%) (Auto) 22, Monocytes (%) (Auto) 9, Eosinophils (%) (Auto) 1, Basophils (%) (Auto) 0, Neutrophils # (Auto) 3.6, Lymphocytes # (Auto) 1.1, Monocytes # (Auto) 0.5, Eosinophils # (Auto) 0.1, Basophils # (Auto) 0.0, Sodium Level 139, Potassium Level 3.6, Chloride Level 107, Carbon Dioxide Level 22, Anion Gap 10, Blood Urea Nitrogen 21H, Creatinine 0.98, Estimat Glomerular Filtration Rate 55, BUN/Creatinine Ratio 21, Glucose Level 103, Calcium Level 8.6, Phosphorus Level 3.5, Magnesium Level 2.0 Microbiology 01/01/19 Gram Stain - Final, Resulted 01/01/19 Sputum Culture, Resulted Pending Laboratory Tests 12/31/18 18:56 01/01/19 03:00 01/02/19 03:20 A/P: Assessment: Episode of chest discomfort without any evidence of ACS. Serial card enzymes: <0.028, 0.036, <0.028. This pattern excludes ac PR. Symptoms resolved with treatment for GERD CAD. Mild to moderate nonobstructive coronary artery disease on card cath of 2010. Stress test in September 2014: extracardiac attenuation but no significant ischemia or infarction. Echocardiogram Nov 2016 showed mild diastolic dysfunction, ejection fraction of 70-75% percent, PA pressure 25 mmHg Peripheral vascular disease with h/o interventions. Last peripheral angio in Nov [address] Cortes: infrarenal abdominal aortic aneurysm, moderate in size. Patent kissing iliac stent with mild to moderate in-stent restenosis at the left iliac artery. Mild to moderate disease bilaterally down to the trifurcation with small vessel disease distally History of severe carotid stenosis. Right CEA with perioperative CVA May 2014 (chronic L-sided weakness). Reported to have occluded R carotid and mod disease on the left that is followed by Dr Stevenson in [place], [place]. History of GI bleed, Anemia, treated in [facility] in June 2014 Infrarenal aneurysm, small in size, most recent CTA abdomen and pelvis done December 2017 showed mild aneurysmal dilatation of the distal abdominal aorta measuring up to 3.37 m AP diameter Hypertension Hyperlipidemia Chronic tobaccoism (smokes cigarettes) H/o COPD CKD 3-4 History of atypical lobular hyperplasia of the left breast, previously on t amoxifen Plan: I discussed her case with Dr Marin this am I spoke with her and answered her question Ok for d/c from cardiac standpoint Outpt f/u advised with Dr Cortes Smoking cessation advised CAROL COY MD FACP FAC CCDS Jan 02, 2019 14:54
--- NOTE | 2019-01-02 16:14 | NUR ---
PT DISCHARGE IS COMPLETE BUT UNABLE TO CONTACT FAMILY FOR TRANSPORTATION. THIS RN HAS LEFT MULTIPLE MESSAGES FOR JYOTI, PTS DAUGHTER, WITH NO RETURN CALL. PT IS ATTEMPTING TO GET AHOLD OF OTHER FAMILY MEMBERS.
--- NOTE | 2019-01-02 16:44 | NUR ---
PT DISCHARGED VIA W/C WITH [facility] STAFF, WHO PROVIDES PATIENTS 24 HR CARE. ALL PATIENT BELONGINGS WITH PATIENT.
--- NOTE | 2019-01-04 09:42 | NUR ---
CM/SS patient discharged over the weekend, she has orders for HHC. Spoke with patient this day and has [facility] already in the home.
== END 2019-01-02 16:44 | disposition home health service (06) ==
LOC: EDUNIT# 18:44 → ER 18:46 → ICU 20:29
PROVIDERS: ADMIT Family Medicine; ATTEND Family Medicine
DX: G45.9 Transient cerebral ischemic attack, unspecified (principal); G40.909 Epilepsy, unspecified, not intractable, without status epilepticus; I25.10 Atherosclerotic heart disease of native coronary artery without angina pectoris; E78.00 Pure hypercholesterolemia, unspecified; I10 Essential (primary) hypertension; J44.9 Chronic obstructive pulmonary disease, unspecified; N17.9 Acute kidney failure, unspecified; K21.9 Gastro-esophageal reflux disease without esophagitis; K59.09 Other constipation; M19.90 Unspecified osteoarthritis, unspecified site; M79.7 Fibromyalgia; F41.9 Anxiety disorder, unspecified; F17.210 Nicotine dependence, cigarettes, uncomplicated; Z88.0 Allergy status to penicillin; Z79.82 Long term (current) use of aspirin; Z88.8 Allergy status to other drugs, medicaments and biological substances; Z86.73 Personal history of transient ischemic attack (TIA), and cerebral infarction without residual deficits; Z87.890 Personal history of sex reassignment; Z90.710 Acquired absence of both cervix and uterus; Z90.89 Acquired absence of other organs; Z82.5 Family history of asthma and other chronic lower respiratory diseases; Z83.3 Family history of diabetes mellitus; Z82.49 Family history of ischemic heart disease and other diseases of the circulatory system; Z80.0 Family history of malignant neoplasm of digestive organs
CPT/HCPCS: 36415; 70450; 70551; 71045; 80048; 80053; 80061; 81000; 83735; 84100; 84484; 85025; 85379; 85610; 85730; 87070; 87081; 87205; 90471; 93005; 93041; 93306; 94640; 96360; G0378

== ENCOUNTER 2019-02-18 14:03 | Outpatient (RCR) | payer MEDICARE, MEDICAID ==
[~2019-02-18 14:03] MED LIST changes: +ACET-2267 PO; +CALC-6 PO; +DOCU-143 PO; +FERR325T18 PO; +FLUT1BLS3 INH; +GABA-488 PO; +KRIL1CAP22 PO; +MULT1TAB69 PO; -OMEP20CA13 PO; +OMEP20CA18 PO; +ONDA-105 PO; -ONDA4TAB10 PO; +POTA10CA43 PO; +RT-ALBUINH IH; -SENN-148 PO; +SNN187T PO; +TRM50T PO
[2019-02-18 14:28] LABS: BASOPHILS % (AUTO) 0 % (0-10); EOSINOPHILS # (AUTO) 0.2 10^3/uL (0.0-0.3); EOSINOPHILS % (AUTO) 5 % (0-10); HEMATOCRIT 36 % (35-52); HEMOGLOBIN 11.4 G/DL (11.5-16.0); LYMPHOCYTES # (AUTO) 1.3 X 10^3 (1.0-4.0); LYMPHOCYTES % (AUTO) 27 % (12-44); MEAN CORPUSCULAR HEMOGLOBIN 31 PG (25-34); MEAN CORPUSCULAR HGB CONC 32 G/DL (32-36); MEAN CORPUSCULAR VOLUME 99 FL (80-99); MONOCYTES # (AUTO) 0.5 X 10^3 (0.0-1.0); MONOCYTES % (AUTO) 11 % (0-12); NEUTROPHILS # (AUTO) 2.6 X 10^3 (1.8-7.8); NEUTROPHILS % (AUTO) 56 % (42-75); PLATELET COUNT 234 10^3/uL (130-400); RED CELL DISTRIBUTION WIDTH 13.5 % (10.0-14.5); WHITE BLOOD COUNT 4.6 10^3/uL (4.3-11.0)
[2019-02-18 14:49] LABS: ALBUMIN 4.1 GM/DL (3.2-4.5); BILIRUBIN,TOTAL 0.2 MG/DL (0.1-1.0); CALCIUM 9.5 MG/DL (8.5-10.1)
== END 2019-05-19 | disposition home or self-care (01) ==
LOC: ONC 14:03
PROVIDERS: ATTEND Internal Medicine Hematology & Oncology
DX: D50.9 Iron deficiency anemia, unspecified (principal); I12.9 Hypertensive chronic kidney disease with stage 1 through stage 4 chronic kidney disease, or unspecified chronic kidney disease; N18.3 Chronic kidney disease, stage 3 (moderate); J43.9 Emphysema, unspecified; I25.10 Atherosclerotic heart disease of native coronary artery without angina pectoris; E78.5 Hyperlipidemia, unspecified; I73.9 Peripheral vascular disease, unspecified; K21.9 Gastro-esophageal reflux disease without esophagitis; K43.9 Ventral hernia without obstruction or gangrene; F17.210 Nicotine dependence, cigarettes, uncomplicated; I71.4 Abdominal aortic aneurysm, without rupture; Z79.899 Other long term (current) drug therapy; Z90.710 Acquired absence of both cervix and uterus; Z90.49 Acquired absence of other specified parts of digestive tract; Z80.9 Family history of malignant neoplasm, unspecified; Z90.89 Acquired absence of other organs
CPT/HCPCS: 80053; 82728; 83540; 85025; 99213

== ENCOUNTER → 2019-05-07 | Outpatient (CLI) | payer MEDICARE, MEDICAID ==
--- NOTE | 2019-05-07 15:19 | Diagnostic Imaging Report ---
PROCEDURE: CT head without contrast. TECHNIQUE: Multiple contiguous axial images were obtained through the brain without the use of intravenous contrast. Auto Exposure Controls were utilized during the CT exam to meet ALARA standards for radiation dose reduction. INDICATION: Concussion with loss of consciousness There is decreased density in the paravertebral white matter the right cerebral hemisphere. There are small bilateral lacunar infarcts. There are no masses or hemorrhages. There are no extra-axial fluid collections. IMPRESSION: There is some white matter atrophic change in the right cerebral hemisphere unchanged compared to 12/31/2018. There is no acute abnormality seen in the head. Dictated by: Dictated on workstation # [id number]
== END ==
LOC: RAD 14:57
PROVIDERS: ATTEND Nurse Practitioner Family
DX: S06.0X0A Concussion without loss of consciousness, initial encounter (principal); L03.116 Cellulitis of left lower limb; S80.812A Abrasion, left lower leg, initial encounter; J16.8 Pneumonia due to other specified infectious organisms; I63.89 Other cerebral infarction; J44.9 Chronic obstructive pulmonary disease, unspecified; F32.9 Major depressive disorder, single episode, unspecified; W06.XXXA Fall from bed, initial encounter
CPT/HCPCS: 70450

== ENCOUNTER → 2019-08-30 | Outpatient (CLI) | payer MEDICARE, MEDICAID ==
[2019-08-30 15:38] LABS: HEMOGLOBIN 11.3 G/DL (11.5-16.0); MEAN PLATELET VOLUME 8.9 FL (7.4-10.4); RED CELL DISTRIBUTION WIDTH 14.7 % (10.0-14.5)
--- NOTE | 2019-08-30 15:43 | Diagnostic Imaging Report ---
INDICATION: Productive cough and shortness of breath. PA and lateral chest obtained at 03:19 p.m. and compared to 01/02/2019. Heart and mediastinal silhouette are normal in appearance. There are mild chronic-appearing increased interstitial markings with improved aeration of the lung bases compared to the prior study. There is no acute infiltrate, pneumothorax, or pleural fluid. There is a compression deformity in the mid thoracic spine which was not present on 05/06/2017 but is indeterminate in its age. IMPRESSION: Mild chronic-appearing increased interstitial markings. No acute infiltrate, pneumothorax, or pleural fluid. Compression deformity in mid thoracic spine of indeterminate age, correlate with clinical findings. Dictated by: Dictated on workstation # [id number]
[2019-08-30 16:03] LABS: ALBUMIN 4.1 GM/DL (3.2-4.5); BILIRUBIN,TOTAL 0.3 MG/DL (0.1-1.0); CALCIUM 9.7 MG/DL (8.5-10.1); CREATININE SERUM 1.32 MG/DL (0.60-1.30); POTASSIUM 4.7 MMOL/L (3.6-5.0); TOTAL PROTEIN 7.2 GM/DL (6.4-8.2)
== END ==
LOC: RAD 14:40
PROVIDERS: ATTEND Nurse Practitioner Family
DX: I50.9 Heart failure, unspecified (principal); R06.00 Dyspnea, unspecified; R05 Cough
CPT/HCPCS: 36415; 71046; 80053; 83880; 85027

== ENCOUNTER → 2019-09-29 | Outpatient (CLI) | payer MEDICARE, MEDICAID ==
[~2019-09-29] MED LIST changes: +MULT-567 PO; -MULT1TAB69 PO
[2019-09-29 13:46] LABS: BASOPHILS % (AUTO) 0 % (0-10); EOSINOPHILS # (AUTO) 0.3 10^3/uL (0.0-0.3); EOSINOPHILS % (AUTO) 6 % (0-10); HEMATOCRIT 35 % (35-52); HEMOGLOBIN 11.1 G/DL (11.5-16.0); LYMPHOCYTES # (AUTO) 1.4 X 10^3 (1.0-4.0); LYMPHOCYTES % (AUTO) 29 % (12-44); MEAN CORPUSCULAR HEMOGLOBIN 31 PG (25-34); MEAN CORPUSCULAR HGB CONC 32 G/DL (32-36); MEAN CORPUSCULAR VOLUME 97 FL (80-99); MEAN PLATELET VOLUME 9.1 FL (7.4-10.4); MONOCYTES # (AUTO) 0.5 X 10^3 (0.0-1.0); MONOCYTES % (AUTO) 10 % (0-12); NEUTROPHILS # (AUTO) 2.6 X 10^3 (1.8-7.8); NEUTROPHILS % (AUTO) 55 % (42-75); PLATELET COUNT 222 10^3/uL (130-400); RED CELL DISTRIBUTION WIDTH 13.1 % (10.0-14.5); WHITE BLOOD COUNT 4.7 10^3/uL (4.3-11.0)
[2019-09-29 14:08] LABS: ALBUMIN 3.7 GM/DL (3.2-4.5); BILIRUBIN,TOTAL 0.2 MG/DL (0.1-1.0); CALCIUM 9.1 MG/DL (8.5-10.1); CREATININE SERUM 1.26 MG/DL (0.60-1.30); POTASSIUM 4.3 MMOL/L (3.6-5.0); TOTAL PROTEIN 6.5 GM/DL (6.4-8.2)
== END ==
LOC: ONC 13:32 → EDSTATUS 16:28
PROVIDERS: ATTEND Internal Medicine Hematology & Oncology
DX: D50.9 Iron deficiency anemia, unspecified (principal); I12.9 Hypertensive chronic kidney disease with stage 1 through stage 4 chronic kidney disease, or unspecified chronic kidney disease; N18.3 Chronic kidney disease, stage 3 (moderate); J43.9 Emphysema, unspecified; I25.10 Atherosclerotic heart disease of native coronary artery without angina pectoris; E78.5 Hyperlipidemia, unspecified; I73.9 Peripheral vascular disease, unspecified; K21.9 Gastro-esophageal reflux disease without esophagitis; K43.9 Ventral hernia without obstruction or gangrene; F17.210 Nicotine dependence, cigarettes, uncomplicated; I71.4 Abdominal aortic aneurysm, without rupture; Z79.899 Other long term (current) drug therapy; Z90.710 Acquired absence of both cervix and uterus; Z90.49 Acquired absence of other specified parts of digestive tract; Z80.9 Family history of malignant neoplasm, unspecified; Z90.89 Acquired absence of other organs
CPT/HCPCS: 80053; 82728; 83540; 85025; G0463; 99213

== ENCOUNTER → 2019-12-09 | Outpatient (CLI) | payer MEDICARE, MEDICAID ==
[~2019-12-09] MED LIST changes: +ALPR.25T PO; -ALPR0.254 PO; +ASPI-1238 PO; -ASPI-983 PO; +CATHETER FLUSH 10 ML SYR IV PRN; +HOLD METFORMIN - RECEIVED CONTRAST 20 ML VIAL IV SCH; +IOHEXOL 350 MG/ML 100 ML (OMNIPAQUE 350) VIAL IV ONE; -PANT40TA3 PO; +PANT40TA52 PO
--- NOTE | 2019-12-09 11:22 | Diagnostic Imaging Report ---
Clinical indication: Patient with COPD and shortness of air. Patient has positive d-dimer and cough. Exam: CT angiogram of the chest performed with 125 cc Omnipaque 350 IV contrast. Coronal and oblique MIP images of the vasculature were created to better evaluate anatomy. Auto Exposure Controls were utilized during the CT exam to meet ALARA standards for radiation dose reduction. Comparison: CT scan of the chest with contrast dated 11/18/2017. Findings: Mild emphysematous lung disease is again seen. Stable 11 mm pneumatocyst involving the middle lobe anteriorly. There is development of minimal airspace groundglass opacification of the periphery of the middle lobe. Bilateral apical pleural parenchymal thickening/scarring is seen. There is interval development of a spiculated nodule in the superior segment of the right lower lobe which measures 1.5 cm x 0.9 cm in axial dimension and 1.3 cm in craniocaudal dimension. There is no pleural effusion or pneumothorax. The previously seen bilateral pleural effusions has resolved. There is dense contrast within the right subclavian vein and superior vena cava which causes streak artifact obscuring mediastinal structures and portions of the pulmonary arteries. There is no significant enlarged lymph nodes and the previously seen prominent lymph nodes have predominantly resolved. There is small amount of pericardial fluid seen in the recesses. There is no evidence of pulmonary embolism. There is no thoracic aortic aneurysm or dissection. Partially visualized ventral midline abdominal hernia with intestines of fat extending within it. Visualized upper abdominal structures show no other significant abnormality. There are degenerative spurs seen throughout the thoracic spine. Stable chronic burst fracture involving the T12 vertebra with mild central canal narrowing. There is interval development of a mild compression deformity of the upper endplate of the T9 vertebra which appears chronic. IMPRESSION: 1: There is interval development of a 1.5 cm spiculated nodule involving the superior segment of the right lower lobe. Neoplasm should be excluded. PET/CT scan may be helpful. There is no significant lymphadenopathy. 2: There is no evidence of pulmonary embolism. 3: There is interval development of a small amorphous groundglass area involving the periphery of the middle lobe which may represent lung infiltrate. 4: The previously seen bilateral pleural effusions and lymphadenopathy has resolved. 5: Emphysematous lung disease. 6: Development of a compression deformity of the upper endplate of T9 vertebra which appears chronic. Dictated by: Dictated on workstation # [id number]
== END ==
LOC: RAD 10:01
PROVIDERS: ATTEND Nurse Practitioner Family
DX: J43.9 Emphysema, unspecified (principal); M48.54XA Collapsed vertebra, not elsewhere classified, thoracic region, initial encounter for fracture; R91.1 Solitary pulmonary nodule; R79.89 Other specified abnormal findings of blood chemistry
CPT/HCPCS: 71275

== ENCOUNTER → 2019-12-21 | Outpatient (CLI) | payer MEDICARE, MEDICAID ==
[~2019-12-21] MED LIST changes: -CATHETER FLUSH 10 ML SYR IV PRN; -HOLD METFORMIN - RECEIVED CONTRAST 20 ML VIAL IV SCH; -IOHEXOL 350 MG/ML 100 ML (OMNIPAQUE 350) VIAL IV ONE
--- NOTE | 2019-12-21 15:36 | Diagnostic Imaging Report ---
INDICATION: Right lung mass. Serum blood glucose level at the time of injection is 105 mg/dL. The patient was administered 13.2 mCi [id number] intravenously in the right forearm and PET imaging was performed from the top of the skull to mid thighs. Noncontrast CT was performed for attenuation correction and anatomic correlation. No prior PET studies are available for comparison. Comparison is made with prior chest CT from 12/09/2019. There is symmetric activity throughout the brain. Normal physiologic activity within the soft tissues of the neck is noted. No definite mediastinal or hilar hypermetabolism is identified. The nodule identified in the superior segment of the right lower lobe on recent CT does demonstrate low level activity with an SUV max of 2.6. There is minimal activity within a healing left-sided rib fracture as well, approximately the left 7th rib. Physiologic activity within the gastrointestinal and genitourinary tracts of the abdomen and pelvis is noted. The patient does have a large ventral hernia containing bowel loops. Postoperative changes to bilateral hips are noted. IMPRESSION: There is low level activity within the nodule in the superior segment of the right lower lobe described on recent CT chest. Even so, close follow-up CT chest with repeat study in 3-6 months would be recommended to confirm stability. No other suspicious areas of hypermetabolism are identified. Dictated by: Dictated on workstation # [id number]
== END ==
LOC: RAD 12:48
PROVIDERS: ATTEND Family Medicine
DX: J98.4 Other disorders of lung (principal); R91.8 Other nonspecific abnormal finding of lung field
CPT/HCPCS: 78815; A9552

== ENCOUNTER 2019-12-27 06:02 | Emergency (ER) | payer MEDICARE, MEDICAID ==
[~2019-12-27] VITALS: Ht 172.7 cm; Wt 70.3 kg
[2019-12-27 06:15] VITALS: BP 169/64
[2019-12-27] MEDS ORDERED: ONDANSETRON 4 MG/2 ML (SDV) Z0FRAN IVP ONE (06:30)
--- NOTE | 2019-12-27 06:30 | ED Neurological Problem ---
General Stated Complaint: STROKE LIKE SYMPTOMS Source: patient Exam Limitations: no limitations History of Present Illness Date Seen by Provider: Dec 27, 2019 Time Seen by Provider: 06:05 Initial Comments The patient presents to the ER by private conveyance from home with chief complaint that sometime around 1:30 this morning she began to have symptoms of feeling numb and weak on her left side upper and lower extremities as well as her left side of her face and feeling to her speech was a little slurred. It is unclear why she did not present until now per her history. Patient states she's not had any new cough, fever, chills, shortness of air, dysuria, diarrhea or vomiting but she does feel little nauseated. She's not having any pain anywhere. She does have a history of stroke several years ago presenting with similar symptoms of left-sided weakness slurred speech and left facial numbness and weakness. She says in the past day times she gets sick she experiences her same stroke symptoms. She is not on anti-thrombotic's or blood thinners. She's not had any falls or trauma. Echocardiogram 2018 showing EF of 60-65% grade [address] Pope. Past history of COPD, anemia, hypertension. Coronary angiogram by Dr. Cortes from 2010 demonstrating an EF 60% and mild to moderate nonobstructive coronary disease. History of peripheral arterial disease with stent in the right common femoral and common iliac artery. Allergies and Home Medications Allergies Coded Allergies: Penicillins (Verified Allergy, Unknown, PT HAS RECEIVED ANCEF WITHOUT ISSUE, 05/30/14) meperidine (Verified Allergy, Unknown, 05/30/14) Home Medications Acetaminophen 500 Mg Tablet, 1,000 MG PO Q4H PRN for PAIN-MILD, (Reported) Albuterol Sulfate 1 Puff Puff, 2 PUFF IH Q4H PRN for SHORTNESS OF BREATH, (Reported) 1 PUFF = 90 MCG Atorvastatin Calcium 40 Mg Tablet, 40 MG PO DAILY Prescribed by: RADHA MCDOWELL on 01/02/19 1317 Baclofen 10 Mg Tablet, 10 MG PO BID PRN for SPASMS, (Reported) LAST FILLED #60 11-06-17 Buspirone HCl 5 Mg Tablet, 5 MG PO BID, (Reported) Calcium Carbonate/Vitamin D3 1 Each Tablet, 1 TAB PO DAILY, (Reported) Divalproex Sodium 250 Mg Tablet.dr, 250 MG PO HS, (Reported) Docusate Sodium 100 Mg Capsule, 100 MG PO BID, (Reported) Ferrous Sulfate 325 Mg Tablet, 325 MG PO DAILY, (Reported) Fluticasone Propionate 16 Gm [place].susp, 1 SPRAY NS BID PRN for ALLERGIES, (Reported) Fluticasone/Umeclidin/Vilanter 1 Each Blst.w.dev, 1 PUFF INH DAILY, (Reported) LAST FILLED 08-03-18 Furosemide 40 Mg Tablet, 40 MG PO DAILY, (Reported) Gabapentin 300 Mg Capsule, 300 MG PO BID, (Reported) Ipratropium/Albuterol Sulfate 3 Ml Ampul.neb, 3 ML IH QID PRN for SHORTNESS OF BREATH, (Reported) Krill/Om-3/Dha/Epa/Phospho/Ast 1 Each Capsule, 1 CAP PO DAILY, (Reported) Latanoprost 2.5 Ml Drops, 1 DROP OU HS, (Reported) LAST FILLED 09-13-18 Losartan Potassium 25 Mg Tablet, 25 MG PO DAILY, (Reported) Magnesium Hydroxide 400 Mg/5 Ml Oral.susp, 30 ML PO DAILY PRN for CONSTIPATION- 7TH LINE, (Reported) Multivitamin 1 Each Tablet, 1 TAB PO DAILY, (Reported) Nebivolol HCl 5 Mg Tablet, 5 MG PO DAILY, (Reported) Ondansetron HCl 4 Mg Tablet, 4 MG PO Q8H PRN for NAUSEA/VOMITING-1ST LINE, (Reported) Pantoprazole Sodium 40 Mg Tablet.dr, 40 MG PO BID, (Reported) Polyethylene Glycol 3350 17 Gm Powd.pack, 17 GM PO DAILY PRN for CONSTIPATION- 2ND LINE, (Reported) Potassium Chloride 10 Meq Capsule.er, 10 MEQ PO DAILY, (Reported) Sertraline HCl 100 Mg Tablet, 200 MG PO DAILY, (Reported) TAKES 2 (100MG) TABLETS Patient Home Medication List Home Medication List Reviewed: Yes Review of Systems Review of Systems Constitutional: No chills, No diaphoresis Eyes: Denies Blindness, Denies Blurred Vision Ears, Nose, Mouth, Throat: denies ear pain, denies ear discharge Respiratory: No cough, No short of breath Cardiovascular: No chest pain, No edema Gastrointestinal: No abdominal pain, No constipation, No diarrhea; nausea; No vomiting Genitourinary: No discharge, No dysuria, No frequency : No Musculoskeletal: No back pain, No joint pain Psychiatric/Neurological: Denies Anxiety, Denies Depressed All Other Systems Reviewed Negative Unless Noted: Yes Past Rimlixn-Lqrnvs-Cxutxv Hx Patient Social History Alcohol Use: Denies Use Recreational Drug Use: No Smoking Status: Current Everyday Smoker Type Used: Cigarettes 2nd Hand Smoke Exposure: Yes Recent Hopitalizations: No Immunizations Up To Date Tetanus Booster (TDap): Unknown Date of Pneumonia Vaccine: Dec 15, 2013 Date of Influenza Vaccine: Dec 12, 2016 Seasonal Allergies Seasonal Allergies: No Past Medical History Surgeries: Yes Abdominal, Breast, Gallbladder, Hysterectomy, Orthopedic, Rectal, Tonsillectomy, Vascular Surgery Respiratory: Yes (COPD--O2 AT 3L/NC CONTINUOUSLY) COPD Currently Using CPAP: No Currently Using BIPAP: No Cardiac: No (CAROTID DISEASE; PERIPHERAL VASCULAR DISEASE--STENTS IN LEG, PER PT; CHF) Coronary Artery Disease, High Cholesterol, Hypertension, Peripheral Vascular Neurological: Yes (LEFT SIDE WEAKNESS--LAST TIA 01/2016) Seizure Disorder, Stroke, TIA 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 Disorders: No Female 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 Disorders: 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, 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 Sexually Transmitted Disease: No HIV/AIDS: No Genitourinary: No Gastrointestinal: No Abdominal Hernia, Gastroesophageal Reflux, Chronic Constipation, Hemorrhoids, Polyps Musculoskeletal: Yes (CHRONIC GENERALIZED PAIN , FX RIGHT HIP 09/09/15; LEFT HIP FX 05/2016) Arthritis, Fibromyalgia, Chronic Back Pain, Fractures Endocrine: No HEENT: Yes Glaucoma Hearing Impairment: Denies Cancer: Yes Breast Did You Recieve Any Treatments: Yes What Type of Treatment Did You: Chemotherapy Psychosocial: Yes ("SEVERE ANXIETY" PER PT) Anxiety Integumentary: No Recent Skin Changes Blood Disorders: Yes (ANEMIA) Adverse Reaction/Blood Tranf: No Family Medical History Alcoholism 19 MOTHER, Onset:20's - 25 Aphasia 19 MOTHER, Onset:40's - 50 Asthma 19 FATHER, Onset:Unknown Congenital disease Son, Onset:Pre- Diabetes mellitus G8 SISTER, Onset:60 years & older FH: ovarian cancer G8 SISTER, Onset:Unknown FHx: stomach cancer 19 MOTHER, Onset:60 years & older Glaucoma Grandaughter, Onset:Unknown Hypertension 19 MOTHER, Onset:Unknown Infertility G8 SISTER, Onset:Pre- Tuberculosis G8 SISTER, Onset:30's - 40 No Family History of: AIDS Abdominal aortic aneurysm Marion's disease Alzheimer's disease Cancer of mouth Cardiovascular disease Cataracts Colon cancer Completed stroke Congenital heart disease Coronary thrombosis Cystic fibrosis Deafness or hearing loss Dementia Drug abuse Dysphasia Fibrocystic disease of breast Gastroenteritis Gout Headache disorder Hypercholesterolemia Kidney disease Myocardial infarction Neoplasm Not obtainable due to adoption Osteoporosis Parkinson's disease Prostate cancer Psychosocial problem Respiratory disorder Seizure disorder Severe allergy Thyroid disease Visual disorder Cancer, Diabetes Physical Exam Vital Signs Vital Signs - First Documented Capillary Refill : Height, Weight, BMI Height: 5'8.00" Weight: 155lbs. 0.0oz. [id number]; 25.81 BMI Method:Estimated General Appearance: WD/WN, mild distress HEENT: PERRL/EOMI, pharynx normal Neck: full range of motion, normal inspection Respiratory: no respiratory distress, no accessory muscle use, decreased breath sounds, wheezing Cardiovascular: normal peripheral pulses, regular rate, rhythm Peripheral Pulses: 2+ Radial Pulses (R), 2+ Radial Pulses (L) Gastrointestinal: non tender, soft, other (prominent ventral hernia.) Extremities: non-tender, normal inspection, normal capillary refill Neurologic/Psychiatric: alert, normal mood/affect, oriented x 3 Crainal Nerves: normal hearing, abnormal speech (subtle slurring) Motor/Sensory: weak motor strength LUE (3/5) Skin: normal color, warm/dry Stroke Onset of Symptoms Date of Onset of Symptoms: Dec 27, 2019 Time of Symptom Onset: 01:30 Onset of Symptoms: Yes NIH Stroke Scale Assessment Select: Initial Level of Consciousness: 0=Alert (0), Level of Consciousness- Questions: 0=Answers both month/age (0), LOC Commands: 0=Performs both tasks (0), Gaze: Normal (0), Visual Ngo: 0=No visual loss (0), Facial Movement (Facial Paresis): 1=Minor paralysis (1), Motor Function-Arms Right: 0=No drift (0), Motor Function-Arms Left: 2=Some effort/gravity (2), Motor Function-Legs Right: 0=No drift (0), Motor Function-Legs Left: 2=Some effort/gravity (2), Limb Ataxia: 0=Absent (0), Sensory: 1=Mild to Moderate loss (1), Best Language: 0=No aphasia (0), Dysarthria: 1=Mild to moderate loss (1), Extinction & Inattention: 0=No abnormality (0), Total: 7 Stroke Thrombolytic Exclusion Age 18 or Over: Yes Acute intenal hemorrhage: No History of CVA: Yes Uncontrolled Coagulation Defec: No Severe Hypertension: No GI or Bleed: No Subarachnoid Hemorrhage: No Intracranial Neoplasm/Aneurysm: No Oral Anticoagulants: No Surgery or Trauma: No Puncture of Non-Compressible V: No Recent CPR: No Diabetic Hemorrhagic Retinopat: No Organ Biopsy: No Recent Obstetric Delivery: No Glucose: No (114) Significant Hepatic Dysfunctio: No NIH Stoke Scale >22: No Bacterial Endocarditis: No Pericarditis: No Improving Symptoms: No TPA Contraindication: Yes (out of the window) Progress/Results/Core Measures Results/Orders Lab Results Laboratory Tests Test 12/27/19 06:18 12/27/19 06:20 12/27/19 08:30 12/27/19 13:30 Range/Units Glucometer 114 H 70-110 MG/DL White Blood Count 4.5 4.3-11.0 10^3/uL Red Blood Count 3.55 L 3.80-5.11 10^6/uL Hemoglobin 11.0 L 11.5-16.0 g/dL Hematocrit 34 L 35-52 % Mean Corpuscular Volume 96 80-99 fL Mean Corpuscular Hemoglobin 31 25-34 pg Mean Corpuscular Hemoglobin Concent 32 32-36 g/dL Red Cell Distribution Width 14.1 10.0-14.5 % Platelet Count 245 130-400 10^3/uL Mean Platelet Volume 9.1 9.0-12.2 fL Immature Granulocyte % (Auto) 0 % Neutrophils (%) (Auto) 49 42-75 % Lymphocytes (%) (Auto) 32 12-44 % Monocytes (%) (Auto) 12 0-12 % Eosinophils (%) (Auto) 6 0-10 % Basophils (%) (Auto) 1 0-10 % Neutrophils # (Auto) 2.2 1.8-7.8 10^3/uL Lymphocytes # (Auto) 1.4 1.0-4.0 10^3/uL Monocytes # (Auto) 0.6 0.0-1.0 10^3/uL Eosinophils # (Auto) 0.3 0.0-0.3 10^3/uL Basophils # (Auto) 0.0 0.0-0.1 10^3/uL Immature Granulocyte # (Auto) 0.0 0.0-0.1 10^3/uL Prothrombin Time 13.5 12.2-14.7 SEC INR Comment 1.0 0.8-1.4 Activated Partial Thromboplast Time 33 24-35 SEC D-Dimer 2.12 H 0.00-0.49 UG/ML Sodium Level 138 135-145 MMOL/L Potassium Level 3.8 3.6-5.0 MMOL/L Chloride Level 104 98-107 MMOL/L Carbon Dioxide Level 23 21-32 MMOL/L Anion Gap 11 5-14 MMOL/L Blood Urea Nitrogen 25 H 7-18 MG/DL Creatinine 1.61 H 0.60-1.30 MG/DL Estimat Glomerular Filtration Rate 31 BUN/Creatinine Ratio 16 Glucose Level 102 70-105 MG/DL Calcium Level 8.8 8.5-10.1 MG/DL Corrected Calcium 9.0 8.5-10.1 MG/DL Total Bilirubin 0.2 0.1-1.0 MG/DL Aspartate Amino Transf (AST/SGOT) 15 5-34 U/L Alanine Aminotransferase (ALT/SGPT) 7 0-55 U/L Alkaline Phosphatase 86 40-136 U/L Troponin I 0.029 H < 0.028 <0.028 NG/ML Total Protein 6.9 6.4-8.2 GM/DL Albumin 3.8 3.2-4.5 GM/DL Urine Color YELLOW Urine Clarity CLEAR Urine pH 5.5 5-9 Urine Specific [place] 1.010 L 1.016-1.022 Urine Protein NEGATIVE NEGATIVE Urine Glucose (UA) NEGATIVE NEGATIVE Urine Ketones NEGATIVE NEGATIVE Urine Nitrite NEGATIVE NEGATIVE Urine Bilirubin NEGATIVE NEGATIVE Urine Urobilinogen 0.2 < = 1.0 MG/DL Urine Leukocyte Esterase NEGATIVE NEGATIVE Urine RBC (Auto) NEGATIVE NEGATIVE Urine RBC RARE /HPF Urine WBC NONE /HPF Urine Squamous Epithelial Cells 5-10 /HPF Urine Crystals NONE /LPF Urine Bacteria NEGATIVE /HPF Urine Casts PRESENT /LPF Urine Hyaline Casts 0-2 H /LPF Urine Mucus NEGATIVE /LPF Urine Culture Indicated NO Test 12/27/19 13:37 Range/Units My Orders Orders - MICHAEL SMITH Cbc With Automated Diff (12/27/19 06:22) Protime With Inr (12/27/19 06:22) Partial Thromboplastin Time (12/27/19 06:22) Comprehensive Metabolic Panel (12/27/19 06:22) Fibrin Degradation Products (12/27/19 06:22) Troponin I (12/27/19 06:22) Ua Culture If Indicated (12/27/19:22) Chest 1 View, Ap/Pa Only (12/27/19 06:22) Ekg Tracing (12/27/19 06:22) Nothing By Mouth (12/27/19 Breakfast) Accucheck Stat ONCE (12/27/19:22) Ed Iv/Invasive Line Start (12/27/19 06:22) Ed Iv/Invasive Line Start (12/27/19 06:22) Vital Signs Stroke Patient Q15M (12/27/19:22) O2 (12/27/19:22) Intake & Output 06,14,22 (12/27/19 06:22) Monitor-Rhythm Ecg Trace Only (12/27/19 06:22) Dysphagia Screening Tool (12/27/19 06:22) Lipid Panel (12/28/19 06:00) Ondansetron Injection (Zofran Injectio (12/27/19 06:30) Ed Iv/Invasive Line Start (12/27/19 06:34) Lactated Ringers (Lr 1000 Ml Iv Solution (12/27/19 06:34) Mra Neck W/O Contrast (12/27/19 07:08) Mra Head W/O Contrast (12/27/19 07:08) Ct Head Wo-R/O Stroke (12/27/19 07:08) Albuterol/Ipra Inhalation Soln (Duoneb I (12/27/19 07:45) Svn Small Volume Nebulizer (12/27/19 07:31) Ceftriaxone For Iv Use (Rocephin For I (12/27/19 08:00) Azithromycin Injection (Zithromax Inject (12/27/19 08:00) Blood Culture (12/27/19 08:00) Alprazolam Tablet (Xanax Tablet) (12/27/19 09:00) Occult Blood Stool (12/27/19 08:59) Alprazolam Tablet (Xanax Tablet) (12/27/19 08:55) Troponin I (12/27/19 13:32) Coronavirus Sars-Cov-2 So 2018 (12/27/19 13:32) Medications Given in ED Current Medications Medications Dose Ordered Sig/Ankita Route Start Time Stop Time Status Last Admin Dose Admin Albuterol/ Ipratropium 3 ml ONCE ONCE INH 12/27/19 07:45 12/27/19 07:46 DC 12/27/19 07:39 3 ML Alprazolam 0.25 mg ONCE ONCE PO 12/27/19 09:00 12/27/19 09:01 DC 12/27/19 09:02 0.25 MG Azithromycin 500 mg/Sodium Chloride 250 ml @ 250 mls/hr ONCE ONCE IV 12/27/19 08:00 12/27/19 08:59 DC 12/27/19 09:17 250 MLS/HR Ceftriaxone Sodium 1000 mg/ Sterile Water 10 ml @ 200 mls/hr ONCE ONCE IV 12/27/19 08:00 12/27/19 08:03 DC 12/27/19 09:18 200 MLS/HR Lactated Ringer's 1,000 ml @ 0 mls/hr Q0M ONCE IV 12/27/19 06:34 12/27/19 06:36 DC 12/27/19 06:42 1,000 MLS/HR Ondansetron HCl 4 mg ONCE ONCE IVP 12/27/19 06:30 12/27/19 06:31 DC 12/27/19 06:41 4 MG Vital Signs/I&O 12/27/19 12/27/19 12/27/19 12/27/19 06:15 06:15 06:15 07:39 Temp 36.5 36.5 Pulse 61 61 61 Resp 18 18 B/P (MAP) 169/64 (99) 169/64 169/64 Pulse Ox 96 96 96 94 O2 Delivery Room Air Room Air Room Air Progress Progress Note #1: Time: 07:39 Progress Note The patient is outside the window to be a candidate for tPA. There is some concern for stroke versus recrudescence of symptoms secondary to other condition. She clearly has some wheezing and may be having a little COPD and her oxygen sats are staying 94-96% at room air. We'll give her a DuoNeb check some labs urine and get a CT without IV contrast. Her creatinine will not allow us to do a CT angiogram so instead we're going to opt for an MRA. Progress Note #2: Time: 13:26 Progress Note Plan to repeat a troponin. Discussed staying in the hospital for further workup IV hydration and IV antibiotics. Patient says she adamantly will not stay in the hospital. She is not septic and is not totally AGAINST MEDICAL ADVICE to leave. However and repeat a delta troponin if it's okay of Ald[place] spoke to Dr. Coronado and she will set up outpatient labs and appropriate CT angiogram of the head and neck this week. She would like us to go ahead and collect a COVID 19 swab for completeness sake. Patient is okay with this plan. Initial ECG Impression Date: Dec 27, 2019 Initial ECG Impression Time: 06:15 Initial ECG Rate: 59 Initial ECG Rhythm: Normal Sinus Initial ECG Intervals: Normal Initial ECG Impression: Normal, Nonspecific Changes Initial ECG Comparisson: Unchanged Comment No clinically relevant ST changes. Normal sinus rhythm. There are some mild one half to one block ST depression in the inferior leads 2 and aVF which is conserved from 2019. There is some mild one half to one block elevation in leads V1, V2 which is conserved from 2019. Lateral leads V4, V5 and V6 have one half to one block of ST depression which is conserved from EKGs and 2019. Diagnostic Imaging Diagonstic Imaging: Xray Plain Films/CT/US/NM/MRI: chest (1v) Comments [facility]. [place], [place] NAME: JUDITH ROMEO [facility] REC#: [id number] PT STATUS: REG ER : 1945 PHYSICIAN: MICHAEL SMITH MD ADMIT DATE: 12/27/19/ER Draft Date of Exam:12/27/19 CHEST 1 VIEW, AP/PA ONLY INDICATION: Stroke. Comparison made with prior examination of 08/30/2019. FINDINGS: Heart size upper limits normal. There is a right basilar infiltrate. Small venous congestion. No pleural effusion or pneumothorax. Mediastinum is unremarkable. IMPRESSION: Right basilar infiltrate suspect for pneumonia. Mild central pulmonary venous congestion. Dictated on workstation # [id number] Dict: 12/27/19719 Trans: 12/27/19 0723 CVB [id number] Interpreted by: MIKE MAKI MD Electronically signed by: Reviewed: Reviewed by Or Diagonstic Imaging: CT (without IV contrast) Plain Films/CT/US/NM/MRI: head Comments [facility], [place] NAME: JUDITH ROMEO [facility] REC#: [id number] PT STATUS: REG ER : 1945 PHYSICIAN: MICHAEL SMITH MD ADMIT DATE: 12/27/19/ER Draft Date of Exam:12/27/19 CT HEAD WO-R/O STROKE PROCEDURE: CT head wo r/o stroke. TECHNIQUE: Multiple contiguous axial images were obtained through the brain without the use of intravenous contrast. Auto Exposure Controls were utilized during the CT exam to meet ALARA standards for radiation dose reduction. INDICATION: Left weakness Comparison is made to study of 05/07/2019. Ventricles and sulci remain diffusely prominent with rather extensive encephalomalacia in the right frontal parietal region. There is also persistent lacunar infarct in the basal ganglia, bilaterally. There is no evidence of hemorrhage. There is no CT evidence of new infarction. No abnormal mass effect or shift of midline structures is identified. There is extensive atherosclerotic calcification within distal internal carotid and vertebral arteries. IMPRESSION: Stable chronic findings related to probable previous infarcts however there is no CT evidence of acute intracranial abnormality. Dictated on workstation # [id number] Dict: 12/27/1935 Trans: 12/27/19 0736 CV [id number] Interpreted by: PRASHATNH BURGESS MD Electronically signed by: Reviewed: Reviewed by Or Diagonstic Imaging: MRI Plain Films/CT/US/NM/MRI: head (neck) Comments NAME: JUDITH ROMEO [facility] REC#: [id number] PT STATUS: REG ER : 1945 PHYSICIAN: MICHAEL SMITH MD ADMIT DATE: 12/27/19/ER Signed Date of Exam:12/27/19 MRA NECK W/O CONTRAST CLINICAL INDICATION: Patient with left-sided weakness. EXAMS: 1. MRA of the [place] performed without IV contrast using 3D [id number]. Rotating 3D MIP images of the [place] were created. 2. MRA of the neck performed without IV contrast using Inhance 3D velocity sequence. Rotating 3D MIP images of the neck vasculature structures were created. COMPARISON: CT angiogram of the chest dated 12/09/2019. MRI of the brain performed without contrast dated 01/01/2019. FINDINGS: Of note, there is limited visualization of the neck vascular structures due to motion artifact, patient body habitus, and no IV contrast administered. The right common carotid artery appears to demonstrate very diminished signal and/or artifact; otherwise, it is either demonstrating significant decreased flow or occlusion. There is no signal seen within the cervical right ICA, cavernous right ICA, petrous right ICA, and supraclinoid right ICA regions. There is signal seen within the right A1 LIZBETH. There is signal seen within the right M1 MCA and proximal M2 MCA branches with significant diminished signal seen in the sylvian fissure region. The amount of signal within the right MCA vessels is significantly decreased compared to the left side. There is no right posterior communicating artery seen. There is a prominent right anterior communicating artery seen which may be the route for retrograde reconstitution of the right-sided anterior circulation of the [place]. The right LIZBETH vessels are also slightly more diminished on the left side. The visualized left MCA vessels are grossly patent. There is a left posterior communicating artery seen. The left P2 FITTER/WELDER vessels have diminished signal compared to the right side and stenosis in the left P2 FITTER/WELDER region cannot be excluded. The right FITTER/WELDER is patent. The bilateral superior cerebellar arteries and basilar arteries are patent. A small caliber intradural left vertebral artery is seen. The bilateral intradural vertebral arteries are patent as visualized. The more proximal intradural vertebral arteries are not completely imaged on the MRA of the [place] and significantly diminished on the MRA of the neck. There is signal seen within the right intradural and mid and distal right cervical vertebral artery regions. The proximal portion origin of the cervical right vertebral artery is uninterpretable. The cervical left vertebral artery is not visualized and unable to determine if its occluded or congenitally narrowed or stenotic. There is mild fusiform dilation of the mid to distal left cavernous ICA measuring 7 mm in width. It is noted there is contrast in the visualized proximal right CCA on the CT angiogram of the chest. There is also note of abnormal signal within the visualized distal cervical, petrous, cavernous, and supraclinoid portions of the right ICA on the comparison MRA suggesting a chronic occlusion. The patient is noted to have a right cerebral hemisphere chronic infarct. IMPRESSION: 1. There is a very limited evaluation of the [place] and neck arterial vascular structures due to no IV contrast administered, patient body habitus, and motion artifact. 2. 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 The patient was noted to have occlusion of the visualized distal cervical right ICA to the supraclinoid region on the MRI of the brain which may suggest a chronic occlusion in this segment. Complete evaluation of the cervical right ICA and its chronicity is unknown. There is also incomplete evaluation of the right common carotid artery and unable to determine complete patency. It is suspected that a right anterior communicating artery allows for retrograde reconstitution of the right LIZBETH and right MCA vessels which demonstrate slightly diminished signal compared to the left side. 3. The left cervical vertebral artery is incompletely evaluated with no signal seen from its origin at the arch to the intracranial portion. It is unknown if this is due to it being occluded versus congenital small caliber versus stenotic. CT angiogram of the [place] and neck would better evaluate. 4. The left P2 FITTER/WELDER vessels have diminished signal compared to the right side and stenosis in the left P2 FITTER/WELDER region cannot be excluded. 5. There is fusiform dilation of the mid to distal cavernous left ICA. Dictated by: Dictated on workstation # [id number] Dict: 12/27/19 1001 Trans: 12/27/19 1042 [id number] Interpreted by: YARY SAEZ MD Electronically signed by: YARY SAEZ MD 12/27/19 1042 [facility] [place] NAME: JUDITH ROMEO [facility] REC#: [id number] PT STATUS: REG ER : 1945 PHYSICIAN: MICHAEL SMITH MD ADMIT DATE: 12/27/19/ER Signed Date of Exam:12/27/19 MRA HEAD W/O CONTRAST CLINICAL INDICATION: Patient with left-sided weakness. EXAMS: 1. MRA of the [place] performed without IV contrast using 3D [id number]-icinfc. Rotating 3D MIP images of the [place] were created. 2. MRA of the neck performed without IV contrast using Inhance 3D velocity sequence. Rotating 3D MIP images of the neck vasculature structures were created. COMPARISON: CT angiogram of the chest dated 12/09/2019. MRI of the brain performed without contrast dated 01/01/2019. FINDINGS: Of note, there is limited visualization of the neck vascular structures due to motion artifact, patient body habitus, and no IV contrast administered. The right common carotid artery appears to demonstrate very diminished signal and/or artifact; otherwise, it is either demonstrating significant decreased flow or occlusion. There is no signal seen within the cervical right ICA, cavernous right ICA, petrous right ICA, and supraclinoid right ICA regions. There is signal seen within the right A1 LIZBETH. There is signal seen within the right M1 MCA and proximal M2 MCA branches with significant diminished signal seen in the sylvian fissure region. The amount of signal within the right MCA vessels is significantly decreased compared to the left side. There is no right posterior communicating artery seen. There is a prominent right anterior communicating artery seen which may be the route for retrograde reconstitution of the right-sided anterior circulation of the [place]. The right LIZBETH vessels are also slightly more diminished on the left side. The visualized left MCA vessels are grossly patent. There is a left posterior communicating artery seen. The left P2 FITTER/WELDER vessels have diminished signal compared to the right side and stenosis in the left P2 FITTER/WELDER region cannot be excluded. The right FITTER/WELDER is patent. The bilateral superior cerebellar arteries and basilar arteries are patent. A small caliber intradural left vertebral artery is seen. The bilateral intradural vertebral arteries are patent as visualized. The more proximal intradural vertebral arteries are not completely imaged on the MRA of the [place] and significantly diminished on the MRA of the neck. There is signal seen within the right intradural and mid and distal right cervical vertebral artery regions. The proximal portion origin of the cervical right vertebral artery is uninterpretable. The cervical left vertebral artery is not visualized and unable to determine if its occluded or congenitally narrowed or stenotic. There is mild fusiform dilation of the mid to distal left cavernous ICA measuring 7 mm in width. It is noted there is contrast in the visualized proximal right CCA on the CT angiogram of the chest. There is also note of abnormal signal within the visualized distal cervical, petrous, cavernous, and supraclinoid portions of the right ICA on the comparison MRA suggesting a chronic occlusion. The patient is noted to have a right cerebral hemisphere chronic infarct. IMPRESSION: 1. There is a very limited evaluation of the [place] and neck arterial vascular structures due to no IV contrast administered, patient body habitus, and motion artifact. 2. 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 The patient was noted to have occlusion of the visualized distal cervical right ICA to the supraclinoid region on the MRI of the brain which may suggest a chronic occlusion in this segment. Complete evaluation of the cervical right ICA and its chronicity is unknown. There is also incomplete evaluation of the right common carotid artery and unable to determine complete patency. It is suspected that a right anterior communicating artery allows for retrograde reconstitution of the right LIZBETH and right MCA vessels which demonstrate slightly diminished signal compared to the left side. 3. The left cervical vertebral artery is incompletely evaluated with no signal seen from its origin at the arch to the intracranial portion. It is unknown if this is due to it being occluded versus congenital small caliber versus stenotic. CT angiogram of the [place] and neck would better evaluate. 4. The left P2 FITTER/WELDER vessels have diminished signal compared to the right side and stenosis in the left P2 FITTER/WELDER region cannot be excluded. 5. There is fusiform dilation of the mid to distal cavernous left ICA. Dictated by: Dictated on workstation # [id number] Dict: 12/27/19 1001 Trans: 12/27/19 1042 [id number] Interpreted by: YARY SAEZ MD Electronically signed by: YARY SAEZ MD 12/27/19 1042 Reviewed: Reviewed by Me Departure Impression Primary Impression: Person under investigation for COVID-19 Additional Impressions: Pneumonia Qualified Codes: J18.9 - Pneumonia, unspecified organism Acute left-sided weakness Disposition: 01 HOME, SELF-CARE Condition: Stable Departure-Patient Inst. Decision time for Depature: 14:35 Referrals: KELSIE CORONADO DO (PCP/Family) Primary Care Physician Patient Instructions: Pneumonia, Adult (DC) Add. Discharge Instructions: I suspect that your left-sided weakness is related to your pneumonia and your history of stroke. Plan to call Dr. Coronado's office and follow up this week with some labs and a CT angiogram of your head and neck. She will help you set this up. Return to the ER if your symptoms worsen. 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 Cefdinir 1 capsule twice daily for 10 days. Azithromycin starting tomorrow one tablet daily for 4 days. Scripts Azithromycin (Azithromycin) 250 Mg Tablet 250 MG PO DAILY, #4 TAB 0 Refills Prov: MICHAEL SMITH 12/27/19 Cefdinir (Cefdinir) 300 Mg Capsule 300 MG PO BID for 10 Days, #20 CAP 0 Refills Prov: MICHAEL SMITH 12/27/19 MICHAEL SMITH Dec 27, 2019 06:30
[2019-12-27] MEDS ORDERED: LACTATED RINGERS 1,000 ML IV ONE (06:34)
[2019-12-27 06:36] LABS: BASOPHILS % (AUTO) 1 % (0-10); EOSINOPHILS # (AUTO) 0.3 10^3/uL (0.0-0.3); EOSINOPHILS % (AUTO) 6 % (0-10); HEMATOCRIT 34 % (35-52); LYMPHOCYTES # (AUTO) 1.4 10^3/uL (1.0-4.0); LYMPHOCYTES % (AUTO) 32 % (12-44); MEAN CORPUSCULAR HEMOGLOBIN 31 pg (25-34); MEAN CORPUSCULAR HGB CONC 32 g/dL (32-36); MEAN CORPUSCULAR VOLUME 96 fL (80-99); MEAN PLATELET VOLUME 9.1 fL (9.0-12.2); MONOCYTES # (AUTO) 0.6 10^3/uL (0.0-1.0); MONOCYTES % (AUTO) 12 % (0-12); NEUTROPHILS # (AUTO) 2.2 10^3/uL (1.8-7.8); NEUTROPHILS % (AUTO) 49 % (42-75); PLATELET COUNT 245 10^3/uL (130-400); WHITE BLOOD COUNT 4.5 10^3/uL (4.3-11.0)
[2019-12-27 06:48] LABS: FIBRIN DEGRADATION PRODUCTS 2.12 UG/ML (0.00-0.49); PROTHROMBIN TIME PATIENT 13.5 SEC (12.2-14.7)
[2019-12-27 06:57] LABS: ALBUMIN 3.8 GM/DL (3.2-4.5); POTASSIUM 3.8 MMOL/L (3.6-5.0)
[2019-12-27 06:59] LABS: CALCIUM 8.8 MG/DL (8.5-10.1)
[2019-12-27 07:00] LABS: TOTAL PROTEIN 6.9 GM/DL (6.4-8.2)
[2019-12-27 07:02] LABS: BILIRUBIN,TOTAL 0.2 MG/DL (0.1-1.0)
[2019-12-27 07:03] LABS: CREATININE SERUM 1.61 MG/DL (0.60-1.30)
--- NOTE | 2019-12-27 07:23 | Diagnostic Imaging Report ---
INDICATION: Stroke. Comparison made with prior examination of 08/30/2019. FINDINGS: Heart size upper limits normal. There is a right basilar infiltrate. Small venous congestion. No pleural effusion or pneumothorax. Mediastinum is unremarkable. IMPRESSION: Right basilar infiltrate suspect for pneumonia. Mild central pulmonary venous congestion. Dictated by: Dictated on workstation # [id number]
--- NOTE | 2019-12-27 07:37 | Diagnostic Imaging Report ---
PROCEDURE: CT head wo r/o stroke. TECHNIQUE: Multiple contiguous axial images were obtained through the brain without the use of intravenous contrast. Auto Exposure Controls were utilized during the CT exam to meet ALARA standards for radiation dose reduction. INDICATION: Left weakness Comparison is made to study of 05/07/2019. Ventricles and sulci remain diffusely prominent with rather extensive encephalomalacia in the right frontal parietal region. There is also persistent lacunar infarct in the basal ganglia, bilaterally. There is no evidence of hemorrhage. There is no CT evidence of new infarction. No abnormal mass effect or shift of midline structures is identified. There is extensive atherosclerotic calcification within distal internal carotid and vertebral arteries. IMPRESSION: Stable chronic findings related to probable previous infarcts however there is no CT evidence of acute intracranial abnormality. Dictated by: Dictated on workstation # [id number]
[2019-12-27] MEDS ORDERED: RT-ALBUTEROL/IPRATROPIUM 3 ML (DUONEB) VIAL INH ONE (07:45)
[2019-12-27] MEDS ORDERED: AZITHROMYCIN INJECTION 500 MG in NS (IVPB) 250 ML IV ONE (08:00)
[2019-12-27] MEDS ORDERED: cefTRIAXone FOR IV USE 1,000 MG in WATER (STERILE) FOR INJECTION 10 ML IV ONE (08:00)
[2019-12-27 08:36] LABS: BILIRUBIN,URINE NEGATIVE (NEGATIVE); CLARITY,URINE CLEAR; COLOR,URINE YELLOW; GLUCOSE, URINE (UA) NEGATIVE (NEGATIVE); KETONES,URINE NEGATIVE (NEGATIVE); LEUKOCYTE ESTERASE ,URINE NEGATIVE (NEGATIVE); NITRITE,URINE NEGATIVE (NEGATIVE); PH,URINE 5.5 (5-9); PROTEIN,URINE NEGATIVE (NEGATIVE)
[2019-12-27] MEDS ORDERED: ALPRAZolam 0.25 MG (XANAX) TAB ONE (08:55)
[2019-12-27] MEDS ORDERED: ALPRAZolam 0.25 MG (XANAX) TAB PO ONE (09:00)
[2019-12-27 09:02] LABS: BACTERIA,URINE NEGATIVE /HPF; HYALINE CASTS, URINE 0-2 /LPF; RBC,URINE RARE /HPF
--- NOTE | 2019-12-27 10:26 | Diagnostic Imaging Report ---
CLINICAL INDICATION: Patient with left-sided weakness. EXAMS: 1. MRA of the [place] performed without IV contrast using 3D [id number]. Rotating 3D MIP images of the [place] were created. 2. MRA of the neck performed without IV contrast using Inhance 3D velocity sequence. Rotating 3D MIP images of the neck vasculature structures were created. COMPARISON: CT angiogram of the chest dated 12/09/2019. MRI of the brain performed without contrast dated 01/01/2019. FINDINGS: Of note, there is limited visualization of the neck vascular structures due to motion artifact, patient body habitus, and no IV contrast administered. The right common carotid artery appears to demonstrate very diminished signal and/or artifact; otherwise, it is either demonstrating significant decreased flow or occlusion. There is no signal seen within the cervical right ICA, cavernous right ICA, petrous right ICA, and supraclinoid right ICA regions. There is signal seen within the right A1 LIZBETH. There is signal seen within the right M1 MCA and proximal M2 MCA branches with significant diminished signal seen in the sylvian fissure region. The amount of signal within the right MCA vessels is significantly decreased compared to the left side. There is no right posterior communicating artery seen. There is a prominent right anterior communicating artery seen which may be the route for retrograde reconstitution of the right-sided anterior circulation of the [place]. The right LIZBETH vessels are also slightly more diminished on the left side. The visualized left MCA vessels are grossly patent. There is a left posterior communicating artery seen. The left P2 SPRINKLER WORKER vessels have diminished signal compared to the right side and stenosis in the left P2 SPRINKLER WORKER region cannot be excluded. The right SPRINKLER WORKER is patent. The bilateral superior cerebellar arteries and basilar arteries are patent. A small caliber intradural left vertebral artery is seen. The bilateral intradural vertebral arteries are patent as visualized. The more proximal intradural vertebral arteries are not completely imaged on the MRA of the [place] and significantly diminished on the MRA of the neck. There is signal seen within the right intradural and mid and distal right cervical vertebral artery regions. The proximal portion origin of the cervical right vertebral artery is uninterpretable. The cervical left vertebral artery is not visualized and unable to determine if its occluded or congenitally narrowed or stenotic. There is mild fusiform dilation of the mid to distal left cavernous ICA measuring 7 mm in width. It is noted there is contrast in the visualized proximal right CCA on the CT angiogram of the chest. There is also note of abnormal signal within the visualized distal cervical, petrous, cavernous, and supraclinoid portions of the right ICA on the comparison MRA suggesting a chronic occlusion. The patient is noted to have a right cerebral hemisphere chronic infarct. IMPRESSION: 1. There is a very limited evaluation of the [place] and neck arterial vascular structures due to no IV contrast administered, patient body habitus, and motion artifact. 2. 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 The patient was noted to have occlusion of the visualized distal cervical right ICA to the supraclinoid region on the MRI of the brain which may suggest a chronic occlusion in this segment. Complete evaluation of the cervical right ICA and its chronicity is unknown. There is also incomplete evaluation of the right common carotid artery and unable to determine complete patency. It is suspected that a right anterior communicating artery allows for retrograde reconstitution of the right LIZBETH and right MCA vessels which demonstrate slightly diminished signal compared to the left side. 3. The left cervical vertebral artery is incompletely evaluated with no signal seen from its origin at the arch to the intracranial portion. It is unknown if this is due to it being occluded versus congenital small caliber versus stenotic. CT angiogram of the [place] and neck would better evaluate. 4. The left P2 SPRINKLER WORKER vessels have diminished signal compared to the right side and stenosis in the left P2 SPRINKLER WORKER region cannot be excluded. 5. There is fusiform dilation of the mid to distal cavernous left ICA. Dictated by: Dictated on workstation # [id number]
--- NOTE | 2019-12-27 10:43 | Diagnostic Imaging Report ---
CLINICAL INDICATION: Patient with left-sided weakness. EXAMS: 1. MRA of the [place] performed without IV contrast using 3D [id number]. Rotating 3D MIP images of the [place] were created. 2. MRA of the neck performed without IV contrast using Inhance 3D velocity sequence. Rotating 3D MIP images of the neck vasculature structures were created. COMPARISON: CT angiogram of the chest dated 12/09/2019. MRI of the brain performed without contrast dated 01/01/2019. FINDINGS: Of note, there is limited visualization of the neck vascular structures due to motion artifact, patient body habitus, and no IV contrast administered. The right common carotid artery appears to demonstrate very diminished signal and/or artifact; otherwise, it is either demonstrating significant decreased flow or occlusion. There is no signal seen within the cervical right ICA, cavernous right ICA, petrous right ICA, and supraclinoid right ICA regions. There is signal seen within the right A1 LIZBETH. There is signal seen within the right M1 MCA and proximal M2 MCA branches with significant diminished signal seen in the sylvian fissure region. The amount of signal within the right MCA vessels is significantly decreased compared to the left side. There is no right posterior communicating artery seen. There is a prominent right anterior communicating artery seen which may be the route for retrograde reconstitution of the right-sided anterior circulation of the [place]. The right LIZBETH vessels are also slightly more diminished on the left side. The visualized left MCA vessels are grossly patent. There is a left posterior communicating artery seen. The left P2 MAJOR GENERAL vessels have diminished signal compared to the right side and stenosis in the left P2 MAJOR GENERAL region cannot be excluded. The right MAJOR GENERAL is patent. The bilateral superior cerebellar arteries and basilar arteries are patent. A small caliber intradural left vertebral artery is seen. The bilateral intradural vertebral arteries are patent as visualized. The more proximal intradural vertebral arteries are not completely imaged on the MRA of the [place] and significantly diminished on the MRA of the neck. There is signal seen within the right intradural and mid and distal right cervical vertebral artery regions. The proximal portion origin of the cervical right vertebral artery is uninterpretable. The cervical left vertebral artery is not visualized and unable to determine if its occluded or congenitally narrowed or stenotic. There is mild fusiform dilation of the mid to distal left cavernous ICA measuring 7 mm in width. It is noted there is contrast in the visualized proximal right CCA on the CT angiogram of the chest. There is also note of abnormal signal within the visualized distal cervical, petrous, cavernous, and supraclinoid portions of the right ICA on the comparison MRA suggesting a chronic occlusion. The patient is noted to have a right cerebral hemisphere chronic infarct. IMPRESSION: 1. There is a very limited evaluation of the [place] and neck arterial vascular structures due to no IV contrast administered, patient body habitus, and motion artifact. 2. 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 The patient was noted to have occlusion of the visualized distal cervical right ICA to the supraclinoid region on the MRI of the brain which may suggest a chronic occlusion in this segment. Complete evaluation of the cervical right ICA and its chronicity is unknown. There is also incomplete evaluation of the right common carotid artery and unable to determine complete patency. It is suspected that a right anterior communicating artery allows for retrograde reconstitution of the right LIZBETH and right MCA vessels which demonstrate slightly diminished signal compared to the left side. 3. The left cervical vertebral artery is incompletely evaluated with no signal seen from its origin at the arch to the intracranial portion. It is unknown if this is due to it being occluded versus congenital small caliber versus stenotic. CT angiogram of the [place] and neck would better evaluate. 4. The left P2 MAJOR GENERAL vessels have diminished signal compared to the right side and stenosis in the left P2 MAJOR GENERAL region cannot be excluded. 5. There is fusiform dilation of the mid to distal cavernous left ICA. Dictated by: Dictated on workstation # [id number]
[2019-12-27] MEDS ORDERED: AZIT250T12 PO (14:39)
[2019-12-27] MEDS ORDERED: CEFD300C3 PO (14:39)
--- NOTE | 2019-12-27 14:52 | NUR ---
SPOKE WITH DAUGHTER ABOUT PTS PENDING DISMISSAL. SHE WILL BE HERE TO PICK PT UP SHORTLY. INSTRUCTED HER TO PULL INTO AMBULANCE BAY DUE TO PT BEING A PUI.
[2019-12-27 15:30] VITALS: BP 127/51
== END 2019-12-27 15:35 | disposition home or self-care (01) ==
LOC: EDUNIT# 06:02 → ER 06:04
DX: J18.9 Pneumonia, unspecified organism (principal); R53.1 Weakness; F41.9 Anxiety disorder, unspecified; K21.9 Gastro-esophageal reflux disease without esophagitis; J44.9 Chronic obstructive pulmonary disease, unspecified; E78.00 Pure hypercholesterolemia, unspecified; I10 Essential (primary) hypertension; G40.909 Epilepsy, unspecified, not intractable, without status epilepticus; F17.210 Nicotine dependence, cigarettes, uncomplicated; Z20.828 Contact with and (suspected) exposure to other viral communicable diseases; Z82.49 Family history of ischemic heart disease and other diseases of the circulatory system; Z83.3 Family history of diabetes mellitus; Z80.41 Family history of malignant neoplasm of ovary; Z80.0 Family history of malignant neoplasm of digestive organs; Z85.3 Personal history of malignant neoplasm of breast; Z86.73 Personal history of transient ischemic attack (TIA), and cerebral infarction without residual deficits; Z88.5 Allergy status to narcotic agent; Z88.0 Allergy status to penicillin
CPT/HCPCS: 70450; 70544; 70547; 71045; 80053; 81000; 82962; 84484; 85025; 85379; 85610; 85730; 87040; 93005; 93041; 94640; 99284; U0002; 36415; 87635

== ENCOUNTER 2020-02-25 12:31 | Emergency (ER) | payer MEDICARE, MEDICAID ==
[~2020-02-25] VITALS: Ht 172 cm; Wt 77.0 kg
[~2020-02-25 12:31] MED LIST changes: -CALC-6 PO; +CALC1TAB84 PO
--- NOTE | 2020-02-25 14:42 | ED General ---
General Chief Complaint: Trauma-Non Activation Stated Complaint: CONFUSION, FALLING, WEAKNESS,HALLUCINATIONS Nursing Triage Note: PT OUT OF CAR W MAX ASSIST. PT CO OF FALLING THIS AM AND WEAKNESS INCREASING SINCE THIS AM. STATES THOUGHT SHE WAS WALKING AROUND IN BEDROOM. PT STATES HAS BEEN HALLUCINATING AND SEEING PEOPLE TODAY Nursing Sepsis Screen: No Definite Risk Source of Information: Patient Exam Limitations: No Limitations History of Present Illness Date Seen by Provider: Feb 25, 2020 Time Seen by Provider: 14:15 Initial Comments Patient is a 74-year-old female who presents to the emergency room with a chief complaint of generalized weakness onset this morning. Patient states that she has had a couple of falls this morning but does not really remember the details of her falls. She states that states that she believes that her who has been for 3 years was in the bathroom this morning. She has been confused. She has chronic pneumonia and chronic cough. She wears oxygen at night to sleep. She has not been using oxygen during the day. Her cough is productive of a light yellow sputum which is normal for her. Occasionally she states there is a little blood in her sputum. She denies any chest pain. Timing/Duration: 4-6 Hours Severity: Moderate Associated Systoms: Denies Symptoms, Malaise, Other (chronic back pain) Allergies and Home Medications Allergies Coded Allergies: Penicillins (Verified Allergy, Unknown, PT HAS RECEIVED ANCEF WITHOUT ISSUE, 05/30/14) meperidine (Verified Allergy, Unknown, 05/30/14) Home Medications Acetaminophen 500 Mg Tablet, 1,000 MG PO Q4H PRN for PAIN-MILD, (Reported) Albuterol Sulfate 1 Puff Puff, 2 PUFF IH Q4H PRN for SHORTNESS OF BREATH, (Reported) 1 PUFF = 90 MCG Atorvastatin Calcium 40 Mg Tablet, 40 MG PO DAILY Prescribed by: RADHA MCDOWELL on 01/02/19 1317 Baclofen 10 Mg Tablet, 10 MG PO BID PRN for SPASMS, (Reported) LAST FILLED #60 11-06-17 Buspirone HCl 5 Mg Tablet, 5 MG PO BID, (Reported) Calcium Carbonate/Vitamin D3 1 Each Tablet, 1 TAB PO DAILY, (Reported) Divalproex Sodium 250 Mg Tablet.dr, 250 MG PO HS, (Reported) Docusate Sodium 100 Mg Capsule, 100 MG PO BID, (Reported) Ferrous Sulfate 325 Mg Tablet, 325 MG PO DAILY, (Reported) Fluticasone Propionate 16 Gm [place].susp, 1 SPRAY NS BID PRN for ALLERGIES, (Reported) Fluticasone/Umeclidin/Vilanter 1 Each Blst.w.dev, 1 PUFF INH DAILY, (Reported) LAST FILLED 08-03-18 Furosemide 40 Mg Tablet, 40 MG PO DAILY, (Reported) Gabapentin 300 Mg Capsule, 300 MG PO BID, (Reported) Ipratropium/Albuterol Sulfate 3 Ml Ampul.neb, 3 ML IH QID PRN for SHORTNESS OF BREATH, (Reported) Krill/Om-3/Dha/Epa/Phospho/Ast 1 Each Capsule, 1 CAP PO DAILY, (Reported) Latanoprost 2.5 Ml Drops, 1 DROP OU HS, (Reported) LAST FILLED 09-13-18 Losartan Potassium 25 Mg Tablet, 25 MG PO DAILY, (Reported) Magnesium Hydroxide 400 Mg/5 Ml Oral.susp, 30 ML PO DAILY PRN for CONSTIPATION- 7TH LINE, (Reported) Multivitamin 1 Each Tablet, 1 TAB PO DAILY, (Reported) Nebivolol HCl 5 Mg Tablet, 5 MG PO DAILY, (Reported) Ondansetron HCl 4 Mg Tablet, 4 MG PO Q8H PRN for NAUSEA/VOMITING-1ST LINE, (Reported) Pantoprazole Sodium 40 Mg Tablet.dr, 40 MG PO BID, (Reported) Polyethylene Glycol 3350 17 Gm Powd.pack, 17 GM PO DAILY PRN for CONSTIPATION- 2ND LINE, (Reported) Potassium Chloride 10 Meq Capsule.er, 10 MEQ PO DAILY, (Reported) Sertraline HCl 100 Mg Tablet, 200 MG PO DAILY, (Reported) TAKES 2 (100MG) TABLETS Patient Home Medication List Home Medication List Reviewed: Yes Review of Systems Review of Systems Constitutional: no symptoms reported EENTM: no symptoms reported Respiratory: cough Cardiovascular: no symptoms reported Gastrointestinal: no symptoms reported Genitourinary: no symptoms reported, incontinence (urge) : No Musculoskeletal: back pain (chronic); No joint pain, No muscle pain, No muscle stiffness Skin: no symptoms reported Psychiatric/Neurological: No Symptoms Reported All Other Systems Reviewed Negative Unless Noted: Yes Past Pelqzmt-Yjqsbx-Uxlzif Hx Patient Social History Alcohol Use: Denies Use Recreational Drug Use: No Smoking Status: Current Everyday Smoker Type Used: Cigarettes 2nd Hand Smoke Exposure: Yes Recent Foreign Travel: No Contact w/Someone Who Travel: No Recent Infectious Disease Expo: No Recent Hopitalizations: No Physical Abuse: No Sexual Abuse: No Immunizations Up To Date Tetanus Booster (TDap): Unknown Date of Pneumonia Vaccine: Dec 15, 2013 Date of Influenza Vaccine: Dec 12, 2016 Seasonal Allergies Seasonal Allergies: No Past Medical History Surgeries: Yes Abdominal, Breast, Gallbladder, Hysterectomy, Orthopedic, Rectal, Tonsillectomy, Vascular Surgery Respiratory: Yes (COPD--O2 AT 3L/NC CONTINUOUSLY) COPD Currently Using CPAP: No Currently Using BIPAP: No Cardiac: No (CAROTID DISEASE; PERIPHERAL VASCULAR DISEASE--STENTS IN LEG, PER PT; CHF) Coronary Artery Disease, High Cholesterol, Hypertension, Peripheral Vascular Neurological: Yes (LEFT SIDE WEAKNESS--LAST TIA 01/2016) Seizure Disorder, Stroke, TIA 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 Disorders: No Female 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 Disorders: Denies ENAMELER History: Hysterectomy, Menopausal Sexually Transmitted Disease: No HIV/AIDS: No Genitourinary: No Gastrointestinal: No Abdominal Hernia, Gastroesophageal Reflux, Chronic Constipation, Hemorrhoids, Polyps Musculoskeletal: Yes (CHRONIC GENERALIZED PAIN , FX RIGHT HIP 09/09/15; LEFT HIP FX 05/2016) Arthritis, Fibromyalgia, Chronic Back Pain, Fractures Endocrine: No HEENT: Yes Glaucoma Hearing Impairment: Denies Cancer: Yes Breast Did You Recieve Any Treatments: Yes What Type of Treatment Did You: Chemotherapy Psychosocial: Yes ("SEVERE ANXIETY" PER PT) Anxiety Integumentary: No Recent Skin Changes Blood Disorders: Yes (ANEMIA) Adverse Reaction/Blood Tranf: No Family Medical History Alcoholism 19 MOTHER, Onset:20's - 25 Aphasia 19 MOTHER, Onset:40's - 50 Asthma 19 FATHER, Onset:Unknown Congenital disease Son, Onset:Pre- Diabetes mellitus G8 SISTER, Onset:60 years & older FH: ovarian cancer G8 SISTER, Onset:Unknown FHx: stomach cancer 19 MOTHER, Onset:60 years & older Glaucoma Grandaughter, Onset:Unknown Hypertension 19 MOTHER, Onset:Unknown Infertility G8 SISTER, Onset:Pre- Tuberculosis G8 SISTER, Onset:30's - 40 No Family History of: AIDS Abdominal aortic aneurysm Burt's disease Alzheimer's disease Cancer of mouth Cardiovascular disease Cataracts Colon cancer Completed stroke Congenital heart disease Coronary thrombosis Cystic fibrosis Deafness or hearing loss Dementia Drug abuse Dysphasia Fibrocystic disease of breast Gastroenteritis Gout Headache disorder Hypercholesterolemia Kidney disease Myocardial infarction Neoplasm Not obtainable due to adoption Osteoporosis Parkinson's disease Prostate cancer Psychosocial problem Respiratory disorder Seizure disorder Severe allergy Thyroid disease Visual disorder Cancer, Diabetes Physical Exam Vital Signs Vital Signs - First Documented 02/25/20 13:45 Temp 35.8 Pulse 80 Resp 19 B/P (MAP) 139/67 (91) Pulse Ox 92 Capillary Refill : Less Than 3 Seconds Height, Weight, BMI Height: 5'8.00" Weight: 155lbs. 0.0oz. 70.560196mw; 26.00 BMI Method:Estimated General Appearance: No Apparent Distress, WD/WN Eyes: Bilateral Eye Normal Inspection, Bilateral Eye PERRL, Bilateral Eye EOMI HEENT: TMs Normal, Normal ENT Inspection, Other (intraoral secretions, non bloody) Respiratory: No Accessory Muscle Use, No Respiratory Distress, Decreased Breath Sounds Cardiovascular: Regular Rate, Rhythm, Systolic Murmur Gastrointestinal: Normal Bowel Sounds, Non Tender, Soft, Other (large soft left sided ventral hernia) Extremity: No Calf Tenderness, No Pedal Edema Neurologic/Psychiatric: Alert, Oriented x3, No Motor/Sensory Deficits, Normal 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, 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 Norm as Tested Progress/Results/Core Measures Suspected Sepsis Recent Fever Within 48 Hours: No Infection Criteria Present: None New/Unexplained Altered Menta: No Sepsis Screen: No Definite Risk SIRS Temperature: Pulse: 80 Respiratory Rate: 19 Laboratory Tests 02/25/20 15:18: White Blood Count 6.5 Blood Pressure 139 /67 Mean: 91 Laboratory Tests 02/25/20 15:18: Creatinine 1.46H, Platelet Count 199 Results/Orders Lab Results Laboratory Tests Test 02/25/20 15:18 02/25/20 15:20 02/25/20 15:35 Range/Units White Blood Count 6.5 4.3-11.0 10^3/uL Red Blood Count 3.38 L 3.80-5.11 10^6/uL Hemoglobin 10.3 L 11.5-16.0 g/dL Hematocrit 34 L 35-52 % Mean Corpuscular Volume 99 80-99 fL Mean Corpuscular Hemoglobin 31 25-34 pg Mean Corpuscular Hemoglobin Concent 31 L 32-36 g/dL Red Cell Distribution Width 13.7 10.0-14.5 % Platelet Count 199 130-400 10^3/uL Mean Platelet Volume 9.7 9.0-12.2 fL Immature Granulocyte % (Auto) 1 % Neutrophils (%) (Auto) 62 42-75 % Lymphocytes (%) (Auto) 25 12-44 % Monocytes (%) (Auto) 10 0-12 % Eosinophils (%) (Auto) 2 0-10 % Basophils (%) (Auto) 0 0-10 % Neutrophils # (Auto) 4.0 1.8-7.8 10^3/uL Lymphocytes # (Auto) 1.6 1.0-4.0 10^3/uL Monocytes # (Auto) 0.7 0.0-1.0 10^3/uL Eosinophils # (Auto) 0.1 0.0-0.3 10^3/uL Basophils # (Auto) 0.0 0.0-0.1 10^3/uL Immature Granulocyte # (Auto) 0.0 0.0-0.1 10^3/uL Sodium Level 140 135-145 MMOL/L Potassium Level 4.3 3.6-5.0 MMOL/L Chloride Level 103 98-107 MMOL/L Carbon Dioxide Level 25 21-32 MMOL/L Anion Gap 12 5-14 MMOL/L Blood Urea Nitrogen 27 H 7-18 MG/DL Creatinine 1.46 H 0.60-1.30 MG/DL Estimat Glomerular Filtration Rate 35 BUN/Creatinine Ratio 18 Glucose Level 95 70-105 MG/DL Calcium Level 8.8 8.5-10.1 MG/DL Valproic Acid (Depakene) Level 9.6 L 50.0-100.0 UG/ML Coronavirus 2019 ([facility]) Negative Negative Urine Color YELLOW Urine Clarity CLEAR Urine pH 6.0 5-9 Urine Specific [place] 1.010 L 1.016-1.022 Urine Protein NEGATIVE NEGATIVE Urine Glucose (UA) NEGATIVE NEGATIVE Urine Ketones NEGATIVE NEGATIVE Urine Nitrite NEGATIVE NEGATIVE Urine Bilirubin NEGATIVE NEGATIVE Urine Urobilinogen 0.2 < = 1.0 MG/DL Urine Leukocyte Esterase NEGATIVE NEGATIVE Urine RBC (Auto) NEGATIVE NEGATIVE Urine RBC NONE /HPF Urine WBC NONE /HPF Urine Squamous Epithelial Cells 2-5 /HPF Urine Crystals NONE /LPF Urine Bacteria NEGATIVE /HPF Urine Casts PRESENT /LPF Urine Hyaline Casts 0-2 H /LPF Urine Mucus NEGATIVE /LPF Urine Culture Indicated NO My Orders Orders - DEIDRE GIL MD Ed Iv/Invasive Line Start (02/25/20 14:16) Ua Culture If Indicated (02/25/20 14:16) Cbc With Automated Diff (02/25/20 14:16) Basic Metabolic Panel (02/25/20 14:16) Chest 1 View, Ap/Pa Only (02/25/20 14:16) Valproic Acid (02/25/20 14:16) Ed Iv/Invasive Line Start (02/25/20 15:12) Covid 19 Inhouse Test (02/25/20 15:12) Vital Signs/I&O 02/25/20 13:45 Temp 35.8 Pulse 80 Resp 19 B/P (MAP) 139/67 (91) Pulse Ox 92 Capillary Refill : Less Than 3 Seconds Blood Pressure Mean: 91 Progress Note : Time: 16:44 Progress Note Rechecked patient, resting comfortably, oxygen saturations on 2 to 3 L 99% on room air. Nontachypneic normal blood pressure normal heart rate. We did have an episode where she was sleeping quite soundly and required a sternal rub to awaken. Her blood pressure dropped to 90 systolic and her oxygen was low for a few minutes. Again Sarika does sleep with oxygen on at night so I suspect she just got hypoxic without any oxygen on and dropped her pressure. I reviewed all of her labs, CBC, chemistry, Depakote level, urinalysis, chest x-ray all of these things are within normal limits and reassuring. She does not have any evidence of acute infectious process, no urinary tract infection, no pneumonia, no renal failure no aberrations in blood chemistry, she is not anemic. Everything looks good. Plan on sending her home. Resuming home care treatment plan. She is comfortable with the plan of care, all questions are sought and answered, she is stable for discharge. Diagnostic Imaging Diagonstic Imaging: Xray Plain Films/CT/US/NM/MRI: chest Comments [facility], [place] NAME: SARIKA ROMEO [facility] REC#: [id number] PT STATUS: REG ER : 1945 PHYSICIAN: DEIDRE GIL MD ADMIT DATE: 02/25/20/ER Signed Date of Exam:12/11/20 CHEST 1 VIEW, AP/PA ONLY EXAMINATION: Chest 1 view. HISTORY: Altered mental status. Cough. Weakness. COMPARISON: 12/27/2019. FINDINGS: The lung volumes are normal. No focal consolidation is seen. Prominent interstitial markings are seen throughout the lungs, decreased compared to the prior exam. No large pleural effusion or pneumothorax is seen. The cardiomediastinal silhouette is normal in size and contour. There is calcified aortic atherosclerotic plaque. No acute osseous abnormality is seen. IMPRESSION: Prominent interstitial markings throughout the lungs, which may represent chronic findings versus infection or edema. Overall, these appear improved compared to the prior exam. Dictated by: Dictated on workstation # [id number] Dict: 02/25/20 1503 Trans: 02/25/20 1511 [facility] [id number] Interpreted by: JUNI HINTON DO Electronically signed by: JUNI HINTON DO 02/25/20 1511 Departure Impression Primary Impression: Generalized weakness Additional Impression: COPD (chronic obstructive pulmonary disease) Qualified Codes: J44.9 - Chronic obstructive pulmonary disease, unspecified Disposition: 01 HOME, SELF-CARE Condition: Stable Departure-Patient Inst. Decision time for Depature: 16:46 Referrals: KELSIE PEARSON DO (PCP/Family) Primary Care Physician Patient Instructions: Chronic Obstructive Pulmonary Disease (COPD) (DC), Genera lized Weakness (DC) Add. Discharge Instructions: Continue current care plan at home. Follow-up with your primary care physician early next week. Please come back to the emergency room for any new or concerning symptoms or other emergent concerns. DEIDRE GIL MD Feb 25, 2020 14:42
--- NOTE | 2020-02-25 15:11 | Diagnostic Imaging Report ---
EXAMINATION: Chest 1 view. HISTORY: Altered mental status. Cough. Weakness. COMPARISON: 12/27/2019. FINDINGS: The lung volumes are normal. No focal consolidation is seen. Prominent interstitial markings are seen throughout the lungs, decreased compared to the prior exam. No large pleural effusion or pneumothorax is seen. The cardiomediastinal silhouette is normal in size and contour. There is calcified aortic atherosclerotic plaque. No acute osseous abnormality is seen. IMPRESSION: Prominent interstitial markings throughout the lungs, which may represent chronic findings versus infection or edema. Overall, these appear improved compared to the prior exam. Dictated by: Dictated on workstation # [id number]
[2020-02-25 15:23] LABS: BASOPHILS % (AUTO) 0 % (0-10); EOSINOPHILS # (AUTO) 0.1 10^3/uL (0.0-0.3); EOSINOPHILS % (AUTO) 2 % (0-10); HEMATOCRIT 34 % (35-52); HEMOGLOBIN 10.3 g/dL (11.5-16.0); LYMPHOCYTES # (AUTO) 1.6 10^3/uL (1.0-4.0); LYMPHOCYTES % (AUTO) 25 % (12-44); MEAN CORPUSCULAR HEMOGLOBIN 31 pg (25-34); MEAN CORPUSCULAR HGB CONC 31 g/dL (32-36); MEAN CORPUSCULAR VOLUME 99 fL (80-99); MEAN PLATELET VOLUME 9.7 fL (9.0-12.2); MONOCYTES # (AUTO) 0.7 10^3/uL (0.0-1.0); MONOCYTES % (AUTO) 10 % (0-12); NEUTROPHILS % (AUTO) 62 % (42-75); PLATELET COUNT 199 10^3/uL (130-400); WHITE BLOOD COUNT 6.5 10^3/uL (4.3-11.0)
[2020-02-25 15:33] LABS: POTASSIUM 4.3 MMOL/L (3.6-5.0)
[2020-02-25 15:34] LABS: CALCIUM 8.8 MG/DL (8.5-10.1)
[2020-02-25 15:38] LABS: CREATININE SERUM 1.46 MG/DL (0.60-1.30)
[2020-02-25 15:42] LABS: BILIRUBIN,URINE NEGATIVE (NEGATIVE); CLARITY,URINE CLEAR; COLOR,URINE YELLOW; GLUCOSE, URINE (UA) NEGATIVE (NEGATIVE); KETONES,URINE NEGATIVE (NEGATIVE); LEUKOCYTE ESTERASE ,URINE NEGATIVE (NEGATIVE); NITRITE,URINE NEGATIVE (NEGATIVE); PROTEIN,URINE NEGATIVE (NEGATIVE)
[2020-02-25 15:46] LABS: VALPROIC ACID 9.6 UG/ML (50.0-100.0)
[2020-02-25 16:04] LABS: BACTERIA,URINE NEGATIVE /HPF
[2020-02-25 16:05] LABS: HYALINE CASTS, URINE 0-2 /LPF
[2020-02-25 17:03] VITALS: BP 136/53
== END 2020-02-25 17:14 | disposition home or self-care (01) ==
LOC: EDUNIT# 12:31 → ER 12:33
DX: R53.1 Weakness (principal); J44.9 Chronic obstructive pulmonary disease, unspecified; K21.9 Gastro-esophageal reflux disease without esophagitis; F41.9 Anxiety disorder, unspecified; E78.00 Pure hypercholesterolemia, unspecified; I10 Essential (primary) hypertension; F17.210 Nicotine dependence, cigarettes, uncomplicated; Z20.828 Contact with and (suspected) exposure to other viral communicable diseases; Z88.0 Allergy status to penicillin; Z88.5 Allergy status to narcotic agent; Z86.73 Personal history of transient ischemic attack (TIA), and cerebral infarction without residual deficits; Z85.3 Personal history of malignant neoplasm of breast; Z83.3 Family history of diabetes mellitus; Z82.49 Family history of ischemic heart disease and other diseases of the circulatory system; Z80.0 Family history of malignant neoplasm of digestive organs; Z80.41 Family history of malignant neoplasm of ovary
CPT/HCPCS: 71045; 80048; 80164; 81000; 85025; 99284; U0002; 36415; 87635

== ENCOUNTER → 2020-03-29 | Outpatient (CLI) | payer MEDICARE, MEDICAID ==
[~2020-03-29] MED LIST changes: +GABA300C PO; +LATA2.5D19 OP; +SERT-414 PO
[2020-03-29 13:32] LABS: BASOPHILS % (AUTO) 1 % (0-10); EOSINOPHILS # (AUTO) 0.3 10^3/uL (0.0-0.3); EOSINOPHILS % (AUTO) 6 % (0-10); HEMATOCRIT 32 % (35-52); HEMOGLOBIN 10.1 g/dL (11.5-16.0); LYMPHOCYTES % (AUTO) 25 % (12-44); MEAN CORPUSCULAR HEMOGLOBIN 31 pg (25-34); MEAN CORPUSCULAR HGB CONC 32 g/dL (32-36); MEAN CORPUSCULAR VOLUME 97 fL (80-99); MEAN PLATELET VOLUME 9.4 fL (9.0-12.2); MONOCYTES # (AUTO) 0.4 10^3/uL (0.0-1.0); MONOCYTES % (AUTO) 11 % (0-12); NEUTROPHILS # (AUTO) 2.3 10^3/uL (1.8-7.8); NEUTROPHILS % (AUTO) 57 % (42-75); PLATELET COUNT 228 10^3/uL (130-400); WHITE BLOOD COUNT 4.1 10^3/uL (4.3-11.0)
[2020-03-29 13:51] LABS: ALBUMIN 3.8 GM/DL (3.2-4.5); BILIRUBIN,TOTAL 0.2 MG/DL (0.1-1.0); CALCIUM 9.1 MG/DL (8.5-10.1); CREATININE SERUM 1.29 MG/DL (0.60-1.30); POTASSIUM 3.8 MMOL/L (3.6-5.0); TOTAL PROTEIN 6.8 GM/DL (6.4-8.2)
== END ==
LOC: ONC 13:16
PROVIDERS: ATTEND Internal Medicine Hematology & Oncology
DX: D50.9 Iron deficiency anemia, unspecified (principal); K21.00 Gastro-esophageal reflux disease with esophagitis, without bleeding; K92.1 Melena; I10 Essential (primary) hypertension; E78.2 Mixed hyperlipidemia; J44.9 Chronic obstructive pulmonary disease, unspecified
CPT/HCPCS: 80053; 82728; 83540; 85025; G0463; 99213

== ENCOUNTER → 2020-04-04 | Outpatient (CLI) | payer MEDICARE, MEDICAID | LOC: ONC 14:56 | PROVIDERS: ATTEND Internal Medicine Hematology & Oncology | DX: D50.9 Iron deficiency anemia, unspecified (principal); I12.9 Hypertensive chronic kidney disease with stage 1 through stage 4 chronic kidney disease, or unspecified chronic kidney disease; N18.30 Chronic kidney disease, stage 3 unspecified; J44.9 Chronic obstructive pulmonary disease, unspecified; E78.2 Mixed hyperlipidemia; I25.10 Atherosclerotic heart disease of native coronary artery without angina pectoris | CPT/HCPCS: 82274 ==

== ENCOUNTER 2020-04-20 05:32 | Outpatient (RCR) | payer MEDICARE, MEDICAID ==
[~2020-04-20] VITALS: Ht 172.7 cm; Wt 77.2 kg
[~2020-04-20 05:32] MED LIST changes: -GABA300C PO; -LATA2.5D19 OP; -SERT-414 PO
[2020-04-20] MEDS ORDERED: GABA300C PO (09:25)
[2020-04-20] MEDS ORDERED: LATA2.5D19 OP (09:25)
[2020-04-20] MEDS ORDERED: SERT100T8 PO (09:25)
== END 2020-04-20 15:23 | disposition home or self-care (01) ==
LOC: PREOP 05:32
PROVIDERS: ATTEND Surgery
DX: Z01.812 Encounter for preprocedural laboratory examination (principal); K21.9 Gastro-esophageal reflux disease without esophagitis; D64.9 Anemia, unspecified; K92.1 Melena; Z20.822 Contact with and (suspected) exposure to COVID-19
CPT/HCPCS: 87635

== ENCOUNTER 2020-04-24 07:02 | Day surgery (SDC) | payer MEDICARE, MEDICAID ==
[~2020-04-24] VITALS: Ht 173 cm; Wt 77.2 kg
[~2020-04-24 07:02] MED LIST changes: +GABA300C PO; +LATA2.5D19 OP
[2020-04-24] MEDS ORDERED: PROPOFOL INJECTION 50 ML IV ONE (07:17)
[2020-04-24] MEDS ORDERED: LACTATED RINGERS 1,000 ML IV ONE (07:19)
[2020-04-24] MEDS ORDERED: RT-ALBUTEROL SULF 2.5 MG/3 ML PRE-MIX VIAL INH ONE (07:30)
[2020-04-24] MEDS ORDERED: LACTATED RINGERS 1,000 ML IV STA (07:32)
[2020-04-24 07:41] VITALS: BP 143/52
[2020-04-24] MEDS ORDERED: HURRICAINE EXT TUBE (BENZOCAINE) XX PRN (07:45)
--- NOTE | 2020-04-24 08:33 | Progress Note-Pre Operative ---
Pre-Operative Progress Note H&P Reviewed The H&P was reviewed, patient examined and no changes noted. Time Seen by Provider: 08:24 Date H&P Reviewed: Apr 24, 2020 Time H&P Reviewed: 08:25 Pre-Operative Diagnosis: Melena, GERD, Anemia SANDRA WEBB DO Apr 24, 2020 08:33
[2020-04-24] MEDS ORDERED: HURRICAINE EXT TUBE (BENZOCAINE) ONE (08:42)
[2020-04-24 09:36] VITALS: BP 144/65
[2020-04-24 09:41] VITALS: BP 156/60
--- NOTE | 2020-04-24 09:43 | Anesthesia-General Post-Op ---
MAC Patient Condition Mental Status/LOC: Same as Preop Cardiovascular: Satisfactory Nausea/Vomiting: Absent Respiratory: Satisfactory Pain: Controlled Complications: Absent Post Op Complications Complications None Follow Up Care/Instructions Patient Instructions None needed. Anesthesiology Discharge Order Discharge Order Patient is doing well, no complaints, stable vital signs, no apparent adverse anesthesia problems. No complications reported per nursing. JO MERCEDES CRNA Apr 24, 2020 09:43
[2020-04-24 09:45] VITALS: BP 156/60
--- NOTE | 2020-04-24 09:51 | Progress Note-Post Operative ---
Post-Operative Progess Note Surgeon (s)/Polisher And Buffer (s) Surgeon SANDRA WEBB DO Polisher And Buffer: LUIS ARMANDO Padron Pre-Operative Diagnosis Melena, GERD, Anemia Post-Operative Diagnosis Pyloric Ulcer Hiatal Hernia ?? Esophageal Stricture Polyps Int Hemorrhoids Procedure & Operative Findings Date of Procedure 04/24/20 Procedure Performed/Findings EGD with bx Colon with snare Colon with hot bx Anesthesia Type IV sedation by ACADEMIC SUPPORT COORDINATOR Estimated Blood Loss Estimated blood loss (mL): scant Specimens/Packing Specimens Removed pyloric bx GE jxn Asc colon polyp x 4 SANDRA WEBB DO Apr 24, 2020 09:51
[2020-04-24] MEDS ORDERED: SUCR1TAB36 PO (09:53)
--- NOTE | 2020-04-24 09:53 | Endoscopy Discharge Instruct ---
Endo Procedure/Findings Findings 1.: Other Findings (Pyloric Ulcer) 2.: Hiatal Hernia, Gastritis 3.: Polyp 4.: Internal Hemorrhoids Discharge Instructions - Activity: You might feel a little sleepy until tomorrow. This is due to the medicine you received to relax you. Until tomorrow, you should: NOT drive a car, operate machinery or power tools. NOT drink any alcoholic beverages. NOT make any important decisions or sign importortant papers. Do not return to work until tomorrow, unless otherwise instructed. Resume previous activities tomorrow. Diet: Start by taking liquids. If you tolerate liquids, advance to solid food. 1.: EGD in 6-8 weeks 2.: Colonscopy in 3 years Notify Physician - If you experience excessive bleeding, unusual abdominal pain, fever, or chest pain, contact your doctor immediately. SANDRA WEBB DO Apr 24, 2020 09:53
[2020-04-24 10:30] VITALS: BP 146/58
[2020-04-24 10:50] VITALS: BP 146/58
--- NOTE | 2020-04-24 19:38 | OPERATIVE REPORT ---
DATE OF SERVICE: 04/24/2020 PREOPERATIVE DIAGNOSES: Melena, gastroesophageal reflux disease and anemia. POSTOPERATIVE DIAGNOSES: 1. Pyloric ulcer, hiatal hernia, questionable esophageal stricture. 2. Colon polyps. 3. Internal hemorrhoids. PROCEDURES: 1. EGD with biopsy. 2. Colonoscopy with snare polypectomy. 3. Colonoscopy with hot biopsy. SURGEON: Wilfrid Long DO BLUE PRINT CONTROL CLERK: Henry Gallegos MS3. SPECIMEN: 1. Biopsy from the pyloric ulcer. 2. Ascending colon polyp x4. BLOOD LOSS: Scant. FLUIDS: Per anesthesia. POSTOPERATIVE CONDITION: Stable. INDICATION FOR PROCEDURE: The patient is a 75-year-old female who has been having some melena, GERD and anemia and needed a workup. FINDINGS: The patient had some severe gastritis as well as what looked like pyloric ulcer. She also had a hiatal hernia and it looked like she may have had esophageal stricture. In the colon, she had some polyps and some internal hemorrhoids. PROCEDURE NOTE: After informed consent was obtained, the patient was brought to the endoscopy suite, placed in bed in the left lateral decubitus position. She was administered IV sedation by the JOB PRINTER APPRENTICE who then monitored her vitals the entire time, heart rate, blood pressure and pulse ox and first started with the EGD, placing scope down the mouth through the esophagus and into the stomach. On the way down, noted what looked like a possible hiatal hernia and in the stomach, noted some gastritis and then what looked like bleeding towards the antrum and pushed into the duodenum, duodenum looked okay, took a picture and then pulled the scope back to what it looked like right at the pylorus, there was some blood. No active bleeding, but it looked like it was fresh, it was red, looked like there may have been an ulcer and did a biopsy, did two biopsies here, then retroflexed the scope, saw hiatal hernia, pulled the scope into the GE junction, did a biopsy of the GE junction and then pushed the scope into the stomach, suctioned all the air out and then pulled the scope up the esophagus and out the mouth. Switched gloves and switched cameras, went down below, started the colonoscopy, pushed in to about 150 cm, able to get all the way to cecum, took a picture of appendiceal orifice, noted the ileocecal valve and then slowly withdrew the scope into the ascending colon. In the ascending colon, saw a large polyp, did a snare polypectomy and then saw another polyp next to this, did another snare polypectomy and then saw a very flat polyp, could not get the snare on and so I elected to do hot biopsies, removed this and then up a little bit higher, saw more ascending colon polyps, flat ones, did more biopsies of these as well, then continued up to the hepatic flexure and then down the transverse colon, the splenic flexure, into the descending colon and down into the sigmoid and finally into the rectum, retroflexed the rectal vault, saw some minimal internal hemorrhoids, took a picture of this and then removed the scope. The patient tolerated the procedure, recovered in endoscopy suite. Job ID: [id number] DocumentID: [id number] Dictated Date: 04/24/2020 16:13:41 [place] Date: 04/24/2020 19:38:06 Dictated By: WILFRID LONG DO
== END 2020-04-24 10:50 | disposition home or self-care (01) ==
LOC: ENDO 07:02
PROVIDERS: ATTEND Surgery
DX: D12.2 Benign neoplasm of ascending colon (principal); K21.9 Gastro-esophageal reflux disease without esophagitis; K92.1 Melena; K44.9 Diaphragmatic hernia without obstruction or gangrene; K25.9 Gastric ulcer, unspecified as acute or chronic, without hemorrhage or perforation; K64.8 Other hemorrhoids; I13.0 Hypertensive heart and chronic kidney disease with heart failure and stage 1 through stage 4 chronic kidney disease, or unspecified chronic kidney disease; N18.30 Chronic kidney disease, stage 3 unspecified; I50.9 Heart failure, unspecified; D63.1 Anemia in chronic kidney disease; I25.10 Atherosclerotic heart disease of native coronary artery without angina pectoris; F41.9 Anxiety disorder, unspecified; G89.29 Other chronic pain; E78.2 Mixed hyperlipidemia; J44.9 Chronic obstructive pulmonary disease, unspecified; F17.210 Nicotine dependence, cigarettes, uncomplicated; Z79.51 Long term (current) use of inhaled steroids; Z79.899 Other long term (current) drug therapy; Z88.0 Allergy status to penicillin; Z88.5 Allergy status to narcotic agent; Z86.73 Personal history of transient ischemic attack (TIA), and cerebral infarction without residual deficits; Z90.710 Acquired absence of both cervix and uterus

== ENCOUNTER → 2020-06-14 | Outpatient (CLI) | payer MEDICARE, MEDICAID ==
[~2020-06-14] VITALS: Ht 172 cm; Wt 77.0 kg
[~2020-06-14] MED LIST changes: -POLY17PO31 PO; +POLY17PO54 PO; +REGADENOSON 0.4 MG/5 ML SYR (LEXISCAN) IV ONE; +SERT-414 PO
[2020-06-14] MEDS: CATHETER FLUSH 10 ML SYR IV PRN ×2 (08:22→09:38)
[2020-06-14 09:30] VITALS: BP 108/53
--- NOTE | 2020-06-14 14:48 | Cardiology Stress Test Report ---
Stress Test Report Date of Procedure/Referring: Date of Procedure: Jun 14, 2020 PCP Amanda Cortes MD Admitting Physician Betsy Coronado DO Indications: CP Baseline Heart Rate: 53 Baseline Blood Pressure: Blood Pressure Systolic: 108 Blood Pressure Diastolic: 53 Baseline Vitals Vital Signs Date Time Temp Pulse Resp B/P (MAP) Pulse Ox O2 Delivery O2 Flow Rate FiO2 06/14/20 09:30 52 14 108/53 (71) 94 Room Air Baseline EKG: Baseline EKG: NSR Summary After explaining the procedure to the patient, she signed a consent and then brought to the stress nuclear laboratory. Patient received 0.4 mg Lexiscan for stress test, ECG, heart rate and blood pressure were monitored continuously. Resting and stress dose of radio tracer were injected, imaging was acquired and reviewed in short axis, horizontal long axis and vertical long axis views. TID: 1.06 SSS: 7 SDS: 3 EF: 38 1. Patient tolerated Lexiscan well 2. Extracardiac attenuation due to the left arm being down affecting the quality of the images, there is decreased uptake involving the whole inferior wall with mild reversibility, could be secondary to the extracardiac attenuation 3. Normal left ventricular size, inferior wall hypokinesia, EF 38% AMANDA CORTES MD Jun 14, 2020 14:48
== END ==
LOC: CARD 08:15
PROVIDERS: ATTEND Internal Medicine Cardiovascular Disease
DX: R07.9 Chest pain, unspecified (principal)
CPT/HCPCS: 78452; 93017; A9502

== ENCOUNTER → 2020-06-21 | Outpatient (CLI) | payer MEDICARE, MEDICAID ==
[~2020-06-21] MED LIST changes: +ATOR80TA76 PO; +CALC-654 PO; +GUAI-977 PO; +KRIL1CAP35 PO; -LATA2.5D19 OP; +LATA2.5D19 OU; +MULT-1021 PO; +POLY17PO6 PO; -REGADENOSON 0.4 MG/5 ML SYR (LEXISCAN) IV ONE
[2020-06-21 14:35] LABS: BASOPHILS % (AUTO) 1 % (0-10); EOSINOPHILS # (AUTO) 0.3 10^3/uL (0.0-0.3); EOSINOPHILS % (AUTO) 6 % (0-10); HEMATOCRIT 34 % (35-52); HEMOGLOBIN 10.6 g/dL (11.5-16.0); LYMPHOCYTES # (AUTO) 1.5 10^3/uL (1.0-4.0); LYMPHOCYTES % (AUTO) 29 % (12-44); MEAN CORPUSCULAR HEMOGLOBIN 31 pg (25-34); MEAN CORPUSCULAR HGB CONC 31 g/dL (32-36); MEAN CORPUSCULAR VOLUME 98 fL (80-99); MEAN PLATELET VOLUME 9.4 fL (9.0-12.2); MONOCYTES # (AUTO) 0.5 10^3/uL (0.0-1.0); MONOCYTES % (AUTO) 10 % (0-12); NEUTROPHILS # (AUTO) 2.8 10^3/uL (1.8-7.8); NEUTROPHILS % (AUTO) 54 % (42-75); PLATELET COUNT 210 10^3/uL (130-400); WHITE BLOOD COUNT 5.2 10^3/uL (4.3-11.0)
[2020-06-21 14:58] LABS: BILIRUBIN,TOTAL 0.2 MG/DL (0.1-1.0); CALCIUM 9.3 MG/DL (8.5-10.1); CREATININE SERUM 1.2 MG/DL (0.60-1.30); POTASSIUM 4.6 MMOL/L (3.6-5.0); TOTAL PROTEIN 7.1 GM/DL (6.4-8.2)
== END ==
LOC: ONC 13:59
PROVIDERS: ATTEND Internal Medicine Hematology & Oncology
DX: D50.9 Iron deficiency anemia, unspecified (principal); K25.9 Gastric ulcer, unspecified as acute or chronic, without hemorrhage or perforation; K21.9 Gastro-esophageal reflux disease without esophagitis; J43.9 Emphysema, unspecified; K43.9 Ventral hernia without obstruction or gangrene; I12.9 Hypertensive chronic kidney disease with stage 1 through stage 4 chronic kidney disease, or unspecified chronic kidney disease; N18.30 Chronic kidney disease, stage 3 unspecified; I25.10 Atherosclerotic heart disease of native coronary artery without angina pectoris; E78.2 Mixed hyperlipidemia; F17.200 Nicotine dependence, unspecified, uncomplicated; Z99.3 Dependence on wheelchair
CPT/HCPCS: 80053; 82728; 83540; 83550; 85025; G0463; 99213

== ENCOUNTER 2020-06-28 10:00 | Day surgery (SDC) | payer MEDICARE, MEDICAID ==
[~2020-06-28] VITALS: Ht 172 cm; Wt 77.0 kg
[2020-06-28] VITALS (11 sets, daily range): BP systolic 129–176; BP diastolic 60–74
--- NOTE | 2020-06-28 07:49 | Diagnostic Imaging Report ---
INDICATION: Dyspnea Upright portable chest shows normal heart size and vascularity. There is a 2 cm opacity adjacent to the right hilum which is not evident on the 02/25/20 study. This likely represents some superimposition of vessels but could be a localized infiltrate. The left lung is clear. There is no effusion or pneumothorax. IMPRESSION: There is a 2 cm opacity near the right hilum that is a change from the prior study. Probably artifactual but could be an infiltrate. Follow-up PA and lateral chest would be helpful. Dictated by: Dictated on workstation # [id number]
[2020-06-28 07:58] LABS: HEMOGLOBIN 10.9 g/dL (11.5-16.0); WHITE BLOOD COUNT 4.5 10^3/uL (4.3-11.0)
[2020-06-28 08:13] LABS: INR 1.1 (0.8-1.4); PROTHROMBIN TIME PATIENT 14.1 SEC (12.2-14.7)
[2020-06-28 08:17] LABS: ALBUMIN 3.8 GM/DL (3.2-4.5); BILIRUBIN,TOTAL 0.2 MG/DL (0.1-1.0); CALCIUM 9.4 MG/DL (8.5-10.1); CREATININE SERUM 0.98 MG/DL (0.60-1.30); POTASSIUM 3.7 MMOL/L (3.6-5.0); TOTAL PROTEIN 6.7 GM/DL (6.4-8.2)
[~2020-06-28 10:00] MED LIST changes: -ATOR80TA76 PO; +HEParin (CATH LAB) 2,000 ML IV ONE; +LIDOCAINE 1% INJ 20 ML 20 ML VIAL ONE; +MIDAZOLAM 5 MG/5 ML (VERSED) VIAL ONE; +NS IV 1000 ML 1,000 ML IV SCH; +NS IV 1000 ML 1,000 ML ONE; +fentaNYL INJ 100 MCG/2 ML AMP ONE
--- NOTE | 2020-06-28 11:02 | Cardiac Procedure Note-CS/ASA ---
Pre-Procedure Note Pre-Op Procedure Note H&P Reviewed The H&P was reviewed, patient examined and no changes noted. Date H&P Reviewed: Jun 28, 2020 Time H&P Reviewed: 10:00 Conscious Sedation Pre-Proced Time 10:00 ASA Score 3 For ASA 3 and 4: Consider anesthesia and medical clearance. Also, for patients with a history of failed moderate sedation consider anesthesia. Airway Lungs Heart ASA score ASA 1: a normal healthy patient ASA 2: a patient with a mild systemic disease (mid diabetes, controlled hypertension, obesity x ASA 3: a patient with a severe systemic disease that limits activity (angina, COPD, prior Myocardial infarction) ASA 4: a patient with an incapacitating disease that is a constant threat to life (CHF, renal failure) ASA 5: a moribund patient not expected to survive 24 hrs. (ruptured aneurysm) ASA 6: a declared brain- patient whose organs are being harvested. For emergent operations, add the letter E after the classification Mallampati Classification Grade 3 Sedation Plan Analgesia, Amnesia, Plan communicated to team members, Discussed options with patient/fam, Discussed risks with patient/fam The patient is an appropriate candidate to undergo the planned procedure, sedation, and anesthesia. The patient immediately re-assessed prior to indication. AMANDA HAYDEN MD Jun 28, 2020 11:02 am
--- NOTE | 2020-06-28 11:13 | Discharge Inst-Post CATH ---
Discharge Inst-CATH/EP Problems Reviewed?: Yes Post Cardiac Cath/EP D/C Inst Follow Up/Plan Appointment with Dr. Cortes's office in 2 to 4 weeks <b>CARDIAC CATH/EP PROCEDURE DISCHARGE INSTRUCTIONS</b> ACTIVITY * Go Home directly and rest. * Limit activity of the leg (or wrist if it was used) for 7 days including aer obics, swimming, jogging, bicycling, etc. * Restrict stair-climbing for 7 days if possible, if not, climb up with your non-cath leg, then bring together on the same step. * Avoid lifting, pushing, pulling or excessive movement of the affected extremi ty for 7 days. * Customary sexual activity may be resumed after 2 days-use caution not to use a position that strains or causes pain to the affected extremity. * No driving for 24 hours. * NO SMOKING. * Avoid straining for bowel movements for 7 days. * Gentle walking on level ground is allowed. * Returning to work will depend on the type of procedure and the results. Your doctor will discuss this with you. CALL YOUR DOCTOR FOR ANY OF THE FOLLOWING: *If bleeding from the puncture site occurs- Apply gentle pressure to site with clean cloth and call your doctor or EMS. * If a knot or lump forms under the skin, increases in size, or causes pain. * If bruising appears to be worsening or moving further down your leg instead of disappearing. * Temperature above 101 F. CARE OF YOUR GROIN INCISION; * Bruising or purple discoloration of the skin near the puncture site is common. * You may shower only, no bathtub bathing for 5 days. Be careful to avoid slipping as your leg may feel stiff. * If a closure device was used on your femoral artery, please see the attached guide regarding care of the device and your leg. * Leave dressing on FOR 24 hours. CARE OF YOUR WRIST INCISION; * Bruising or purple discoloration of the skin near the puncture site is common. * You may shower. * DO NOT submerge wrist. * Leave dressing on FOR 24 hours. AMANDA CORTES MD Jun 28, 2020 11:13 am
[2020-06-28] MEDS ORDERED: PATIENT MAY USE OWN MEDS, ALL PO SCH (11:15)
[2020-06-28] MEDS ORDERED: NS IV 1000 ML 1,000 ML IV SCH (11:15)
--- NOTE | 2020-06-28 11:18 | Cardiac Cath Report ---
Cardiac Cath Report Physician (s)/Qa Tester (s) Physician AMANDA HAYDEN MD Pre-Procedure Diagnosis Pre-Procedure Diagnosis: Coronary artery disease, peripheral arterial disease Post-Procedure Note Procedure Start Date: Jun 28, 2020 Name of Procedure: Coronary angiogram Abdominal aortogram with bilateral runoff Findings/Procedure Note PROCEDURE NOTE: 75-year-old lady with extensive peripheral arterial disease, hypertension and hyperlipidemia. Had an abnormal stress test, had multiple intervention of her lower extremities. Scheduled for cardiac catheterization. After explaining the procedure to the patient, all pros and cons were explained, all questions were answered. The patient signed the consent and then she was placed on the cardiac catheterization laboratory. Groin was prepped SL fashion local anesthesia was used. Sheath placed in the left femoral artery with significant difficulty in accessing the artery, angiogram showed heavy atherosclerotic disease in the left common femoral artery and iliac artery. Dipak right was advanced to the right coronary system and Dipak left has advanced to the left system, patient has short left main, the catheter continue to selective the LAD, I had difficulty use multiple different projection to visualize the full extent of the circumflex artery. Pigtail catheter was advanced, I was unable to cross the aortic valve and did not want to expose the patient to increase risk of stroke I pulled the catheter back to the abdominal aorta due to the heavy atherosclerotic plaque and known peripheral arterial disease I decided to proceed with abdominal aortogram and bilateral runoff. At the end of the procedure the sheath was removed. Closure device was deployed FINDINGS: ANATOMY: Left Main is very short with mild disease proximally Left Anterior Descending tortuous artery with mild to moderate disease nonobstructive disease Left Circumflex is large artery, dominant artery, total occlusion of the left PDA reconstructed by collaterals. Tortuous artery, calcified. Right Coronory Artery is nondominant small artery LV Gram was not done, did not cross the aortic valve Aorta evaluation done with aortic angiogram and bilateral runoff. There is aneurysmal dilatation infrarenally with tortuous abdominal aorta and calcified, renal arteries are normal, both lower extremities has heavily calcified arteries with slow run down to the trifurcation. Nonobstructive disease CONCLUSION: 1. Total occlusion of the left PDA, large circumflex artery calcified. Distal lesion reconstructed by collaterals 2. Calcified coronary system with mild to moderate disease in the LAD and right coronary artery, nonobstructive disease 3. Small infrarenal aneurysm, heavily calcified arteries bilateral lower extremities, nonobstructive disease down to the trifurcation. There is a lesion at the left common femoral artery appears to be moderate to severe. DISCUSSION AND RECOMMENDATION: Continue to maximize medical therapy, the circumflex artery has occlusion of the left PDA that is distal artery, reconstructed by collaterals, I recommend conservative management, considered high risk for intervention Anesthesia Type: Conscious Sedation Estimated blood loss (mL): 30 ml Contrast Amount: 103 ml Total Radiation Dose: 379 mGy Post-Procedure Diagnosis Post-operative diagnosis: Coronary artery disease Peripheral arterial disease Claudication Hypertension Hyperlipidemia AMANDA HAYDEN MD Jun 28, 2020 11:18 am
[2020-06-28] MEDS ORDERED: ATOR80TA76 PO (11:20)
== END 2020-06-28 16:00 | disposition home or self-care (01) ==
LOC: CATH 10:00 → CSD 11:30 → CATH 16:00
PROVIDERS: ATTEND Internal Medicine Cardiovascular Disease
DX: I25.10 Atherosclerotic heart disease of native coronary artery without angina pectoris (principal); I70.203 Unspecified atherosclerosis of native arteries of extremities, bilateral legs; I77.89 Other specified disorders of arteries and arterioles; I65.29 Occlusion and stenosis of unspecified carotid artery; I63.9 Cerebral infarction, unspecified; I71.9 Aortic aneurysm of unspecified site, without rupture; I12.9 Hypertensive chronic kidney disease with stage 1 through stage 4 chronic kidney disease, or unspecified chronic kidney disease; N18.30 Chronic kidney disease, stage 3 unspecified; K46.9 Unspecified abdominal hernia without obstruction or gangrene; D64.9 Anemia, unspecified; E78.2 Mixed hyperlipidemia; J44.9 Chronic obstructive pulmonary disease, unspecified; F17.210 Nicotine dependence, cigarettes, uncomplicated; Z88.0 Allergy status to penicillin; Z79.899 Other long term (current) drug therapy; Z88.8 Allergy status to other drugs, medicaments and biological substances; Z80.0 Family history of malignant neoplasm of digestive organs; Z90.49 Acquired absence of other specified parts of digestive tract
CPT/HCPCS: 71045; 80053; 80061; 85027; 85610; 85730; 87081; 93454; C1894; G0278; 36415

== ENCOUNTER → 2020-07-14 | Outpatient (CLI) | payer MEDICARE, MEDICAID ==
[~2020-07-14] MED LIST changes: +ATOR80TA76 PO; -HEParin (CATH LAB) 2,000 ML IV ONE; -LIDOCAINE 1% INJ 20 ML 20 ML VIAL ONE; -MIDAZOLAM 5 MG/5 ML (VERSED) VIAL ONE; -NS IV 1000 ML 1,000 ML IV SCH; -NS IV 1000 ML 1,000 ML ONE; -fentaNYL INJ 100 MCG/2 ML AMP ONE
--- NOTE | 2020-07-17 09:08 | Diagnostic Imaging Report ---
EXAMINATION: Digital mammogram bilateral screening with CAD. INDICATION: Screening. COMPARISON: This study was compared to the prior exams of 01/14/2017 and 02/03/2013. PERSONAL HISTORY: At this time, there are no current complaints. FINDINGS: There are scattered fibroglandular densities in both breasts which could obscure a lesion. Overall, there does not appear to have been any significant change when compared to the prior exam. No primary or secondary sign of malignancy is noted. The two stereotactic clips in the left breast seen previously are again evident and no different. IMPRESSION: 1. There is no radiographic evidence for malignancy. 2. The patient should have her annual bilateral screening mammogram on schedule in June 2021. ACR BI-RADS Category 1: Negative. Result letter will be mailed to the patient. Note: At least 10% of breast cancer is not imaged by mammography. Dictated by: Dictated on workstation # [id number]
== END ==
LOC: RAD 14:45
PROVIDERS: ATTEND Family Medicine
DX: Z12.31 Encounter for screening mammogram for malignant neoplasm of breast (principal)
CPT/HCPCS: 77063; 77067

== ENCOUNTER → 2020-09-12 | Outpatient (CLI) | payer MEDICARE, MEDICAID ==
[~2020-09-12] MED LIST changes: -OXYC-464 PO; +OXYC1TAB15 PO
--- NOTE | 2020-09-12 16:05 | Diagnostic Imaging Report ---
INDICATION: COUGH,COPD COMPARISON: 06/28/2020 FINDINGS: Frontal and lateral views of the chest demonstrate normal heart size and pulmonary vascularity. The lungs are clear. There are no signs of infiltrate, pleural effusions or pneumothoraces. The visualized osseous structures show no acute abnormalities. Note is made of calcified aortic atherosclerosis. IMPRESSION: 1. No acute process. No signs of infiltrates, effusions or pneumothoraces. Dictated by: Dictated on workstation # [id number]
== END ==
LOC: RAD 15:22
PROVIDERS: ATTEND Family Medicine
DX: J44.9 Chronic obstructive pulmonary disease, unspecified (principal)
CPT/HCPCS: 71046

== ENCOUNTER → 2020-09-14 | Outpatient (CLI) | payer MEDICARE, MEDICAID ==
--- NOTE | 2020-09-14 17:16 | Diagnostic Imaging Report ---
CT CHEST WO TECHNIQUE: Multiple contiguous axial images were obtained through the chest without the use of intravenous contrast. All CT scans use one or more of the following dose optimizing techniques: automated exposure control, MA and/or KvP adjustment based on a patient size and exam type, or iterative reconstruction. INDICATION: Pulmonary nodule seen on chest radiograph. COMPARISON: CT chest of 12/05/2016. Chest radiograph of 06/28/2020 and 09/12/2020. FINDINGS: Lungs and airway: No endoluminal nodule within the trachea. A 2.5 x 2.0 x 1.5 cm spiculated nodule is present in the superior segment of the right lower lobe that is highly concerning for primary lung cancer. There are a few patchy centrilobular micronodules in the right lower lobe at the site of prior infection, which are likely chronic in nature. Peribronchial thickening with small airways mucus plugging in the right lower lobe is compatible with chronic bronchitis. Mild centrilobular emphysema. No contralateral pulmonary nodule. Pleura: No pleural effusion or pneumothorax. Heart and mediastinum: Thyroid is normal. No supraclavicular or axillary lymphadenopathy. Right lower lobe 0.8 cm pulmonary nodule. No hilar lymphadenopathy is appreciated, though assessment is suboptimal without IV contrast. Atherosclerotic aorta. Severe coronary artery calcifications. No pericardial effusion. Upper abdomen: Ventral epigastric hernia contains transverse colon without obstruction. Aneurysmal infrarenal abdominal aorta measures up to 3.6 cm. Musculoskeletal: Chronic appearing compression fracture of T12. Age-indeterminate superior endplate fracture of T9. No lytic or blastic skeletal lesions. Right-sided axillary-femoral bypass graft is visualized, but patency cannot be determined on this exam without contrast. IMPRESSION: 1. Right lower lobe spiculated nodule is highly likely a primary lung cancer. Recommend PET/CT for further assessment. 2. Single borderline enlarged right lower paratracheal lymph node could be reactive or neoplastic in nature. Attention on follow-up PET/CT. 3. Infrarenal abdominal aortic aneurysm. 4. Large epigastric hernia contains transverse colon but no features of obstruction. 5. Age-indeterminate superior endplate compression fracture of T9. Consider MRI of the thoracic spine without contrast for further assessment. Dictated by: Dictated on workstation # [id number]
== END ==
LOC: RAD 13:15
PROVIDERS: ATTEND Family Medicine
DX: R91.1 Solitary pulmonary nodule (principal); M48.54XA Collapsed vertebra, not elsewhere classified, thoracic region, initial encounter for fracture; K43.9 Ventral hernia without obstruction or gangrene; I71.4 Abdominal aortic aneurysm, without rupture; R59.0 Localized enlarged lymph nodes
CPT/HCPCS: 71250

== ENCOUNTER 2020-09-29 20:28 | Inpatient (IN) | payer MEDICARE, MEDICAID ==
[~2020-09-29] VITALS: Ht 172 cm; Wt 66.4 kg
[2020-09-29] MEDS ORDERED: predniSONE 20 MG TAB PO ONE (20:45)
--- NOTE | 2020-09-29 20:48 | ED Cough/URI ---
General Chief Complaint: Respiratory Problems Stated Complaint: SOB Source: patient, EMS Exam Limitations: no limitations History of Present Illness Date Seen by Provider: Sep 29, 2020 Time Seen by Provider: 20:46 Initial Comments To ER by [facility] with reports of cough today shortness of breath for 2 to 3 days getting progressively worse. Street of stage III chronic kidney disease, history of gastric ulcer, history of anemia, history of coronary artery disease. She is had both Moderna Covid vaccinations. She lives at home with 24-hour care she smokes 1.5 pack of cigarettes per day. She wears oxygen at 3 L per nasal cannula. Upon EMS arrival she was wheezy and diminished. After a DuoNeb treatment she had improved aeration with reduced wheezing. No fevers. Timing/Duration: constant Severity/Quality: moderate Associated Symptoms: cough, shortness of breath, wheezing Allergies and Home Medications Allergies Coded Allergies: Penicillins (Verified Allergy, Unknown, PT HAS RECEIVED ANCEF WITHOUT ISSUE, 05/30/14) meperidine (Verified Allergy, Unknown, 05/30/14) Home Medications Acetaminophen 500 Mg Tablet, 1,000 MG PO Q4H PRN for PAIN-MILD, (Reported) Albuterol Sulfate 1 Puff Puff, 2 PUFF IH Q4H PRN for SHORTNESS OF BREATH, (Reported) Atorvastatin Calcium 80 Mg Tablet, 80 MG PO DAILY Prescribed by: AMANDA HAYDEN on 06/28/20 1120 Buspirone HCl 5 Mg Tablet, 5 MG PO BID, (Reported) Calcium Carbonate/Vitamin D3 1 Each Tablet, 1 EACH PO DAILY, (Reported) Divalproex Sodium 250 Mg Tablet.dr, 250 MG PO HS, (Reported) Docusate Sodium 100 Mg Capsule, 100 MG PO BID, (Reported) Ferrous Sulfate 325 Mg Tablet, 325 MG PO BID, (Reported) Fluticasone/Umeclidin/Vilanter 1 Each Blst.w.dev, 1 PUFF INH DAILY, (Reported) LAST FILLED 12-26-2019 #1 Furosemide 40 Mg Tablet, 40 MG PO DAILY, (Reported) Gabapentin 300 Mg Capsule, 300 MG PO BID, (Reported) Guaifenesin 600 Mg Tab.er.12h, 600-1,200 MG PO BID PRN for CONGESTION, (Reported) Ipratropium/Albuterol Sulfate 3 Ml Ampul.neb, 3 ML IH Q6H PRN for SHORTNESS OF BREATH, (Reported) Krill/Om-3/Dha/Epa/Phospho/Ast 1 Each Capsule, 1 EACH PO HS, (Reported) Latanoprost 2.5 Ml Drops, 1 DROPS OU HS, (Reported) LAST FILLED 02-19-2020 #3/ DAY SUPPLY Multivits-Min/Iron/FA/Lutein 1 Each Tablet, 1 EACH PO DAILY, (Reported) Nebivolol HCl 5 Mg Tablet, 5 MG PO HS, (Reported) Pantoprazole Sodium 40 Mg Tablet.dr, 40 MG PO BID, (Reported) Polyethylene Glycol 3350 17 Gm Powd.pack, 17 GM PO DAILY PRN for CONSTIPATION- 2ND LINE, (Reported) Potassium Chloride 10 Meq Capsule.er, 10 MEQ PO DAILY, (Reported) Sertraline HCl 100 Mg Tablet, 100 MG PO BID, (Reported) Sucralfate 1 Gm Tablet, 1 GM PO QIDACHS PRN for ULCERS, (Reported) Patient Home Medication List Home Medication List Reviewed: Yes Review of Systems Review of Systems Constitutional: see HPI EENTM: see HPI Respiratory: see HPI, cough, short of breath, wheezing Genitourinary: no symptoms reported Musculoskeletal: no symptoms reported Skin: no symptoms reported Psychiatric/Neurological: No Symptoms Reported Hematologic/Lymphatic: No Symptoms Reported Past Dxhghhv-Inwreb-Qzrdrz Hx Immunizations Up To Date Tetanus Booster (TDap): Unknown Seasonal Allergies Seasonal Allergies: No Past Medical History Surgeries: Yes Abdominal, Breast, Gallbladder, Hysterectomy, Orthopedic, Rectal, Tonsillectomy, Vascular Surgery Respiratory: Yes (COPD--O2 AT 3L/NC CONTINUOUSLY AT NOC) COPD Currently Using CPAP: No Currently Using BIPAP: No Cardiac: No (CAROTID DISEASE; PERIPHERAL VASCULAR DISEASE--STENTS IN LEG, PER PT; CHF) Coronary Artery Disease, High Cholesterol, Hypertension, Peripheral Vascular Neurological: Yes (LEFT SIDE WEAKNESS--LAST TIA 01/2016) Seizure Disorder, Stroke, TIA 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 Disorders: No Female 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 Disorders: Denies 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 History: Hysterectomy, Menopausal Sexually Transmitted Disease: No HIV/AIDS: No Genitourinary: No Gastrointestinal: Yes Abdominal Hernia, Gastroesophageal Reflux, Chronic Constipation, Hemorrhoids, Polyps Musculoskeletal: Yes (CHRONIC GENERALIZED PAIN , FX RIGHT HIP 09/09/15; LEFT HIP FX 05/2016) Arthritis, Fibromyalgia, Chronic Back Pain, Fractures Endocrine: No HEENT: Yes (GLASSES, DENTURES) Glaucoma Hearing Impairment: Denies Cancer: Yes ("PRE-CANCER CELLS, CHEMO A PREVENTATIVE") Breast Did You Recieve Any Treatments: Yes What Type of Treatment Did You: Chemotherapy Psychosocial: Yes ("SEVERE ANXIETY" PER PT) Anxiety Integumentary: No Recent Skin Changes Blood Disorders: Yes (ANEMIA) Adverse Reaction/Blood Tranf: No Family Medical History Alcoholism 19 MOTHER, Onset:20's - 25 Aphasia 19 MOTHER, Onset:40's - 50 Asthma 19 FATHER, Onset:Unknown Congenital disease Son, Onset:Pre- Diabetes mellitus G8 SISTER, Onset:60 years & older FH: ovarian cancer G8 SISTER, Onset:Unknown FHx: stomach cancer 19 MOTHER, Onset:60 years & older Glaucoma Grandaughter, Onset:Unknown Hypertension 19 MOTHER, Onset:Unknown Infertility G8 SISTER, Onset:Pre- Tuberculosis G8 SISTER, Onset:30's - 40 No Family History of: AIDS Abdominal aortic aneurysm Nahum's disease Alzheimer's disease Cancer of mouth Cardiovascular disease Cataracts Colon cancer Completed stroke Congenital heart disease Coronary thrombosis Cystic fibrosis Deafness or hearing loss Dementia Drug abuse Dysphasia Fibrocystic disease of breast Gastroenteritis Gout Headache disorder Hypercholesterolemia Kidney disease Myocardial infarction Neoplasm Not obtainable due to adoption Osteoporosis Parkinson's disease Prostate cancer Psychosocial problem Respiratory disorder Seizure disorder Severe allergy Thyroid disease Visual disorder Cancer, Diabetes Physical Exam Vital Signs - First Documented 09/29/20 20:33 Temp 36.3 Pulse 89 Resp 18 B/P (MAP) 109/55 (73) Pulse Ox 98 O2 Delivery Nasal Cannula O2 Flow Rate 2.00 Capillary Refill : Height: 5'8.00" Weight: 155lbs. 0.0oz. 70.824675wd; 26.02 BMI Method:Estimated General Appearance: WD/WN, no apparent distress, thin Eyes: Bilateral Eye Normal Inspection, Bilateral Eye PERRL, Bilateral Eye EOMI Neck: non-tender, full range of motion Respiratory: no respiratory distress, no accessory muscle use, decreased breath sounds; No wheezing Cardiovascular: regular rate, rhythm, no murmur Gastrointestinal: normal bowel sounds, non tender, soft Neurologic/Psychiatric: alert, normal mood/affect, oriented x 3 Skin: normal color, warm/dry Progress/Results/Core Measures Suspected Sepsis SIRS Temperature: Pulse: Respiratory Rate: Laboratory Tests 09/29/20 20:35: White Blood Count 5.5 Blood Pressure / Mean: Laboratory Tests 09/29/20 20:35: Creatinine 1.45H, Platelet Count 253, Total Bilirubin 0.2 Results/Orders Lab Results Laboratory Tests Test 09/29/20 20:35 Range/Units White Blood Count 5.5 4.3-11.0 10^3/uL Red Blood Count 1.95 L 3.80-5.11 10^6/uL Hemoglobin 5.8 *L 11.5-16.0 g/dL Hematocrit 20 *L 35-52 % Mean Corpuscular Volume 102 H 80-99 fL Mean Corpuscular Hemoglobin 30 25-34 pg Mean Corpuscular Hemoglobin Concent 29 L 32-36 g/dL Red Cell Distribution Width 16.2 H 10.0-14.5 % Platelet Count 253 130-400 10^3/uL Mean Platelet Volume 10.5 9.0-12.2 fL Immature Granulocyte % (Auto) 1 % Neutrophils (%) (Auto) 65 42-75 % Lymphocytes (%) (Auto) 20 12-44 % Monocytes (%) (Auto) 9 0-12 % Eosinophils (%) (Auto) 4 0-10 % Basophils (%) (Auto) 1 0-10 % Neutrophils # (Auto) 3.6 1.8-7.8 10^3/uL Lymphocytes # (Auto) 1.1 1.0-4.0 10^3/uL Monocytes # (Auto) 0.5 0.0-1.0 10^3/uL Eosinophils # (Auto) 0.2 0.0-0.3 10^3/uL Basophils # (Auto) 0.0 0.0-0.1 10^3/uL Immature Granulocyte # (Auto) 0.1 0.0-0.1 10^3/uL Percent Immature Platelet Fraction 2.8 0.0-7.6 % Blood Gas Puncture Site LEFT RAD Blood Gas Patient Temperature 37.4 Arterial Blood pH 7.25 *L 7.37-7.43 Arterial Blood Partial Pressure CO2 53 H 35-45 MMHG Arterial Blood Partial Pressure O2 47 L 79-93 MMHG Arterial Blood HCO3 23 23-27 MMOL/L Arterial Blood Total CO2 24.1 21.0-31.0 MMOL/L Arterial Blood Oxygen Saturation 73 L 94-100 % Arterial Blood Base Excess -3.5 L -2.5-2.5 MMOL/L Rao Test YES-POS Blood Gas Ventilator Setting NO Blood Gas Inspired Oxygen 3L Sodium Level 144 135-145 MMOL/L Potassium Level 3.8 3.6-5.0 MMOL/L Chloride Level 110 H 98-107 MMOL/L Carbon Dioxide Level 20 L 21-32 MMOL/L Anion Gap 14 5-14 MMOL/L Blood Urea Nitrogen 28 H 7-18 MG/DL Creatinine 1.45 H 0.60-1.30 MG/DL Estimat Glomerular Filtration Rate 35 BUN/Creatinine Ratio 19 Glucose Level 145 H 70-105 MG/DL Calcium Level 8.2 L 8.5-10.1 MG/DL Corrected Calcium 8.8 8.5-10.1 MG/DL Total Bilirubin 0.2 0.1-1.0 MG/DL Aspartate Amino Transf (AST/SGOT) 27 5-34 U/L Alanine Aminotransferase (ALT/SGPT) 24 0-55 U/L Alkaline Phosphatase 82 40-136 U/L B-Type Natriuretic Peptide 731.8 H <100.0 PG/ML Total Protein 5.8 L 6.4-8.2 GM/DL Albumin 3.3 3.2-4.5 GM/DL Procalcitonin 0.06 <0.10 NG/ML SARS-CoV-2 RNA (RT-PCR) Not Detected Not Detecte My Orders Orders - MAHAMED COBOS APRN Arterial Blood Gas (09/29/20 20:44) Cbc With Automated Diff (09/29/20 20:44) Comprehensive Metabolic Panel (09/29/20 20:44) BNP (09/29/20 20:44) Covid 19 Inhouse Test (09/29/20 20:44) Chest 1 View, Ap/Pa Only (09/29/20 20:44) Procalcitonin (Pct) (09/29/20 20:44) Prednisone Tablet (Deltasone Tablet) (09/29/20 20:45) Red Cells Leukocytes Reduced (09/29/20 21:37) Type And Screen (09/29/20 21:37) Medications Given in ED Current Medications Medications Dose Ordered Sig/Ankita Route Start Time Stop Time Status Last Admin Dose Admin Prednisone 60 mg ONCE ONCE PO 09/29/20 20:45 09/29/20 20:46 DC 09/29/20 20:53 60 MG Vital Signs/I&O 09/29/20 20:33 Temp 36.3 Pulse 89 Resp 18 B/P (MAP) 109/55 (73) Pulse Ox 98 O2 Delivery Nasal Cannula O2 Flow Rate 2.00 Capillary Refill : Diagnostic Imaging Diagonstic Imaging: CT Comments NAME: JUD[facility]O [facility] REC#: [id number] PT STATUS: REG ER : 1945 PHYSICIAN: MAHAMED COBOS DINING ROOM ATTENDANT [place] ADMIT DATE: 09/29/20/ER Signed Date of Exam:09/29/20 CHEST 1 VIEW, AP/PA ONLY INDICATION: Shortness of breath. COMPARISON: 06/28/2020. EXAMINATION: Single view of the chest was obtained. FINDINGS: Cardiac enlargement with moderate interstitial edema. There is no pneumothorax or effusion. Osseous structures are normal. IMPRESSION: CHF. Dictated by: Dictated on workstation # [id number] Dict: 09/29/202101 Trans: 09/29/202116 [facility] [id number] Interpreted by: LULA GODOY Electronically signed by: LULA GODOY 09/29/202116 Departure Communication (Admissions) 2150-Ill type and cross her for 3 units. Will order to give 2 units tonight wi th 40 mg of Lasix IV after the first unit given the findings of CHF on chest x- ray. However her BNP is only 730 and this is likely in large part due to her chronic kidney disease. She does not have distended jugular veins. She has 97% on 2 L at this time and has been for the past 1 hour. We will consult Dr. Elliott in the morning from cardiology. Consult Dr. Long from surgery. I spoke with Dr. Land and will admit. I will put her on BiPAP overnight to see if we can improve her respiratory acidosis and hypercapnia. I discussed CODE STATUS with her and she wishes to be DO NOT RESUSCITATE and DO NOT INTUBATE status. Impression Primary Impression: COPD exacerbation Additional Impressions: ANEMIA CHF (congestive heart failure) Disposition: ADMITTED INPATIENT Condition: Improved Admissions Decision to Admit Reason: Admit from ER (General) Decision to Admit/Date: Sep 29, 2020 Time/Decision to Admit Time: 21:34 Departure-Patient Inst. Referrals: KELSIE PEARSON DO (PCP/Family) Primary Care Physician MAHAMED COBOS APRN Sep 29, 2020 20:47
[2020-09-29 20:50] LABS: ABG BASE EXCESS -3.5 MMOL/L (-2.5-2.5); ABG OXYGEN SATURATION 73 % (94-100); ABG PCO2 53 MMHG (35-45); ABG PO2 47 MMHG (79-93); ABG TCO2 24.1 MMOL/L (21.0-31.0)
[2020-09-29 20:51] LABS: ALLENS TEST YES-POS; INSPIRED O2 3L; PATIENT TEMP 37.4; VENTILATOR NO
[2020-09-29 20:52] LABS: ABG PH 7.25 (7.37-7.43)
[2020-09-29 21:02] LABS: ALBUMIN 3.3 GM/DL (3.2-4.5)
[2020-09-29 21:03] LABS: POTASSIUM 3.8 MMOL/L (3.6-5.0)
[2020-09-29 21:04] LABS: CALCIUM 8.2 MG/DL (8.5-10.1)
[2020-09-29 21:05] LABS: TOTAL PROTEIN 5.8 GM/DL (6.4-8.2)
[2020-09-29 21:07] LABS: BILIRUBIN,TOTAL 0.2 MG/DL (0.1-1.0)
--- NOTE | 2020-09-29 21:08 | Diagnostic Imaging Report ---
INDICATION: Shortness of breath. COMPARISON: 06/28/2020. EXAMINATION: Single view of the chest was obtained. FINDINGS: Cardiac enlargement with moderate interstitial edema. There is no pneumothorax or effusion. Osseous structures are normal. IMPRESSION: CHF. Dictated by: Dictated on workstation # [id number]
[2020-09-29 21:09] LABS: CREATININE SERUM 1.45 MG/DL (0.60-1.30)
[2020-09-29 21:10] LABS: BASOPHILS % (AUTO) 1 % (0-10); EOSINOPHILS # (AUTO) 0.2 10^3/uL (0.0-0.3); EOSINOPHILS % (AUTO) 4 % (0-10); LYMPHOCYTES # (AUTO) 1.1 10^3/uL (1.0-4.0); LYMPHOCYTES % (AUTO) 20 % (12-44); MEAN CORPUSCULAR HEMOGLOBIN 30 pg (25-34); MEAN CORPUSCULAR HGB CONC 29 g/dL (32-36); MEAN CORPUSCULAR VOLUME 102 fL (80-99); MEAN PLATELET VOLUME 10.5 fL (9.0-12.2); MONOCYTES # (AUTO) 0.5 10^3/uL (0.0-1.0); MONOCYTES % (AUTO) 9 % (0-12); NEUTROPHILS # (AUTO) 3.6 10^3/uL (1.8-7.8); NEUTROPHILS % (AUTO) 65 % (42-75); PLATELET COUNT 253 10^3/uL (130-400); WHITE BLOOD COUNT 5.5 10^3/uL (4.3-11.0)
[2020-09-29 21:12] LABS: HEMATOCRIT 20 % (35-52); HEMOGLOBIN 5.8 g/dL (11.5-16.0)
[2020-09-29 22:36] VITALS: BP 115/57
[2020-09-29] MEDS ORDERED: NS IV 1000 ML 1,000 ML IV SCH (22:45)
[2020-09-29] MEDS ORDERED: FUROSEMIDE 40 MG/4 ML INJ (LASIX) IVP ONE (22:45)
[2020-09-29] MEDS ORDERED: NS IV 500 ML 500 ML ONE (22:58)
[2020-09-29 23:20] VITALS: BP 108/49
[2020-09-29 23:32] VITALS: BP 95/51
[2020-09-29 23:35] VITALS: BP 99/51
[2020-09-30] VITALS (22 sets, daily range): BP systolic 96–138; BP diastolic 45–94
[2020-09-30] MEDS ORDERED: RT-ALBUTEROL/IPRATROPIUM 3 ML (DUONEB) VIAL INH PRN (01:00)
[2020-09-30] MEDS ORDERED: FUROSEMIDE 40 MG/4 ML INJ (LASIX) ONE ×2 (01:19→18:19)
[2020-09-30] MEDS: NS IV 1000 ML 1,000 ML IV SCH (03:47)
[2020-09-30 05:14] LABS: ABG BASE EXCESS -2.1 MMOL/L (-2.5-2.5); ABG OXYGEN SATURATION 73 % (94-100); ABG PCO2 42 MMHG (35-45); ABG PH 7.35 (7.37-7.43); ABG PO2 43 MMHG (79-93); ABG TCO2 24.1 MMOL/L (21.0-31.0)
[2020-09-30 05:16] LABS: ALLENS TEST YES-POS; INSPIRED O2 21% BIPAP; PATIENT TEMP 36.4; VENTILATOR NO
[2020-09-30] MEDS ORDERED: methylPREDNISolone 40 MG/ML (Solu-MEDROL) VIAL IV SCH (06:00)
[2020-09-30 06:13] LABS: BASOPHILS % (AUTO) 0 % (0-10); EOSINOPHILS % (AUTO) 0 % (0-10); HEMATOCRIT 27 % (35-52); HEMOGLOBIN 8.2 g/dL (11.5-16.0); LYMPHOCYTES # (AUTO) 0.4 10^3/uL (1.0-4.0); LYMPHOCYTES % (AUTO) 11 % (12-44); MEAN CORPUSCULAR HEMOGLOBIN 30 pg (25-34); MEAN CORPUSCULAR HGB CONC 30 g/dL (32-36); MEAN CORPUSCULAR VOLUME 99 fL (80-99); MEAN PLATELET VOLUME 10.3 fL (9.0-12.2); MONOCYTES # (AUTO) 0.1 10^3/uL (0.0-1.0); MONOCYTES % (AUTO) 2 % (0-12); NEUTROPHILS # (AUTO) 3.6 10^3/uL (1.8-7.8); NEUTROPHILS % (AUTO) 87 % (42-75); PLATELET COUNT 223 10^3/uL (130-400); WHITE BLOOD COUNT 4.1 10^3/uL (4.3-11.0)
[2020-09-30 06:30] LABS: POTASSIUM 4.2 MMOL/L (3.6-5.0)
[2020-09-30 06:32] LABS: CALCIUM 8.7 MG/DL (8.5-10.1)
[2020-09-30 06:36] LABS: CREATININE SERUM 1.26 MG/DL (0.60-1.30)
[2020-09-30 06:39] LABS: BAND NEUTROPHILS 1 %; HYPOCHROMASIA MODERATE; LYMPHOCYTES % (MANUAL) 10 %; MICROCYTOSIS SLIGHT; MONOCYTES % (MANUAL) 2 %; NEUTROPHILS % (MANUAL) 87 %
[2020-09-30] MEDS: RT-ALBUTEROL/IPRATROPIUM 3 ML (DUONEB) VIAL INH SCH ×4 (06:58→18:36)
--- NOTE | 2020-09-30 07:33 | History & Physical-Hospitalist ---
History of Present Illness HPI/Chief Complaint Respiratory failure Source: patient, EMS, RN notes reviewed Date Seen 09/30/20 Time Seen by a Provider: 07:29 Attending Physician Mari Benson MD PCP Betsy Coronado DO Referring Physician Date of Admission Sep 29, 2020 at 21:34 Home Medications & Allergies Home Medications Reviewed patient Home Medication Reconciliation performed by pharmacy medication reconciliations fiber optic technician and/or nursing. Patients Allergies have been reviewed. Allergies Allergies Coded Allergies Penicillins (Verified Allergy, Unknown, PT HAS RECEIVED ANCEF WITHOUT ISSUE, 05/30/14) meperidine (Verified Allergy, Unknown, 05/30/14) Past Idfstrt-Gdghwf-[id number] Hx Patient Social History Tobacco Use?: Yes Tobacco type used: Cigarettes Smoking Status: Current Everyday Smoker Use of E-Cig and/or Vaping dev: No Substance use?: No Alcohol Use?: No Pt feels they are or have been: No Immunizations Up To Date Date of Influenza Vaccine: Dec 12, 2016 First/Initial COVID19 Vaccinat: 05/07 Second COVID19 Vaccination Melo: 06/04 Tetanus Booster (TDap): Unknown Date of Pneumonia Vaccine: Dec 15, 2018 Seasonal Allergies Seasonal Allergies: No Current Status status: No Advance Directives: No Communicates: Verbally Primary Language: Armenian Preferred Spoken Language: Armenian Is interpretation needed?: No Sensory deficits: Vision impairment Implanted or Applied Medical D: None Past Medical History Surgeries: Abdominal, Breast, Gallbladder, Hysterectomy, Orthopedic, Rectal, Tonsillectomy, Vascular Surgery COPD Currently Using CPAP: No Currently Using BIPAP: No Coronary Artery Disease, High Cholesterol, Hypertension, Peripheral Vascular Seizure Disorder, Stroke, TIA [employer]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 History: Hysterectomy, Menopausal Sexually Transmitted Disease: No HIV/AIDS: No Abdominal Hernia, Gastroesophageal Reflux, Chronic Constipation, Hemorrhoids, Polyps Arthritis, Fibromyalgia, Chronic Back Pain, Fractures Glaucoma Hearing Impairment: Denies Breast Did You Recieve Any Treatments: Yes What Type of Treatment Did You: Chemotherapy Anxiety Recent Skin Changes Blood Disorders: Yes (ANEMIA) Adverse Reaction/Blood Tranf: No Family Medical History Alcoholism 19 MOTHER, Onset:20's - 25 Aphasia 19 MOTHER, Onset:40's - 50 Asthma 19 FATHER, Onset:Unknown Congenital disease Son, Onset:Pre- Diabetes mellitus G8 SISTER, Onset:60 years & older FH: ovarian cancer G8 SISTER, Onset:Unknown FHx: stomach cancer 19 MOTHER, Onset:60 years & older Glaucoma Grandaughter, Onset:Unknown Hypertension 19 MOTHER, Onset:Unknown Infertility G8 SISTER, Onset:Pre- Tuberculosis G8 SISTER, Onset:30's - 40 No Family History of: AIDS Abdominal aortic aneurysm Nahum's disease Alzheimer's disease Cancer of mouth Cardiovascular disease Cataracts Colon cancer Completed stroke Congenital heart disease Coronary thrombosis Cystic fibrosis Deafness or hearing loss Dementia Drug abuse Dysphasia Fibrocystic disease of breast Gastroenteritis Gout Headache disorder Hypercholesterolemia Kidney disease Myocardial infarction Neoplasm Not obtainable due to adoption Osteoporosis Parkinson's disease Prostate cancer Psychosocial problem Respiratory disorder Seizure disorder Severe allergy Thyroid disease Visual disorder Cancer, Diabetes Review of Systems Constitutional: No chills, No fever Respiratory: cough, short of breath Gastrointestinal: No abdominal pain, No constipation Genitourinary: No dysuria Musculoskeletal: no symptoms reported Skin: no symptoms reported Psychiatric/Neurological: Denies Anxiety, Denies Depressed Physical Exam Physical Exam Vital Signs Vital Signs - First Documented 09/29/20 09/30/20 20:33 00:36 Temp 36.3 Pulse 89 Resp 18 B/P (MAP) 109/55 (73) Pulse Ox 98 O2 Delivery Nasal Cannula O2 Flow Rate 2.00 FiO2 28 Capillary Refill : Less Than 3 Seconds Height, Weight, BMI Height: 5'8.00" Weight: 155lbs. 0.0oz. [id number]; 26.02 BMI Method:Estimated General Appearance: No Apparent Distress, Chronically ill, Other (comfortable on bipap) Eyes: Bilateral Eye Normal Inspection, Bilateral Eye PERRL HEENT: PERRL/EOMI Neck: Full Range of Motion Respiratory: Chest Non Tender, No Accessory Muscle Use, No Respiratory Distress, Decreased Breath Sounds Cardiovascular: Regular Rate, Rhythm, No Edema, No Murmur Gastrointestinal: Non Tender, Soft Back: Normal Inspection Extremity: Normal Capillary Refill, Normal Inspection Neurologic/Psychiatric: Alert, Oriented x3 Skin: Normal Color, Warm/Dry Results Results/Procedures Labs Laboratory Tests 09/29/20 20:35 09/30/20 05:50 Patient resulted labs reviewed. Assessment/Plan Admission Diagnosis Acute on chronic respiratory failure, blood loss anemia, GERD. Admission Status: Inpatient Order (span 2 midnights) Reason for Inpatient Admission: Acute on chronic respiratory failure. Assessment and Plan 1. Acute on chronic respiratory failure- likely due to COPD vs pulmonary edema- Baseline at home is 3 liters. Was on bipap overnight. Respiratory acidosis resolved. Patient breathing comfortably. Will titrate off bipap today. End- stage COPD on oxygen. Will titrate down methylprednisolone to 60 mg q8 from 80 mg q8. 2. Pulmonary edema- on chest x-ray. Given IV lasix to help. Diuresing. Cardiology consulted this morning. 3. Blood loss anemia- Hemoccult positive stools. Hemoglobin on admission is 5. Now up to 8 and stable after 2 units PRBC's. On IV protonix BID. On protonix BID at home. REcently restarted on plavix for arterial bypass in leg per patient. General surgery consulted for GI bleed management. Patient has had black stools for several weeks. MARI BENSON MD Sep 30, 2020 07:33
[2020-09-30] MEDS: PANTOPRAZOLE 40 MG (PROTONIX) VIAL IV SCH ×2 (08:47→21:05)
[2020-09-30] MEDS ORDERED: RT-ALBUTEROL/IPRATROPIUM 3 ML (DUONEB) VIAL INH SCH (09:00)
--- NOTE | 2020-09-30 10:14 | Consultation - Surgery ---
NEENA ANNA MED STUDENT 09/30/20 1014: History of Present Illness History of Present Illness Patient Consulted On(catherine/time) 09/30/20 10:07 Date Seen by Provider: Sep 30, 2020 Time Seen by Provider: 09:40 Reason for Visit: Anemia History of Present Illness I am seeing Ms. Springer as for surgery consult for anemia with possible GI bleed. Patient was recently started on plavix after a bypass in her right leg. She has a history of rectal bleeding requiring transfusion, her last was in "2017". Additionally, she has a history of a "stomach ulcer" that was found on EGD approx "3 months" ago. She had a colonoscopy performed at the same time. She reports her stools "are always black because I take iron pills", she has not noticed in recent change. She does tell me she takes about 1500mg of ibuprofen everyday, and only takes her "ulcer pills" when she has stomach pain, it is unclear if she has been taking her protonix at home. She denies any abdominal pain or heartburn like symptoms at this time. She does report intermittent epigastric pain about 1/week, that seems to be aggrevated by spicy foods. She sometimes tries to avoid spicy foods and that seems to mildly help. Allergies and Home Medications Allergies Coded Allergies: Penicillins (Verified Allergy, Unknown, PT HAS RECEIVED ANCEF WITHOUT ISSUE, 05/30/14) meperidine (Verified Allergy, Unknown, 05/30/14) Home Medications Acetaminophen 500 Mg Tablet, 1,000 MG PO Q4H PRN for PAIN-MILD, (Reported) Albuterol Sulfate 1 Puff Puff, 2 PUFF IH Q4H PRN for SHORTNESS OF BREATH, (Reported) Atorvastatin Calcium 80 Mg Tablet, 80 MG PO DAILY Prescribed by: AMANDA HAYDEN on 06/28/20 1120 Buspirone HCl 5 Mg Tablet, 5 MG PO BID, (Reported) Calcium Carbonate/Vitamin D3 1 Each Tablet, 1 EACH PO DAILY, (Reported) Divalproex Sodium 250 Mg Tablet.dr, 250 MG PO HS, (Reported) Docusate Sodium 100 Mg Capsule, 100 MG PO BID, (Reported) Ferrous Sulfate 325 Mg Tablet, 325 MG PO BID, (Reported) Fluticasone/Umeclidin/Vilanter 1 Each Blst.w.dev, 1 PUFF INH DAILY, (Reported) LAST FILLED 12-26-2019 #1 Furosemide 40 Mg Tablet, 40 MG PO DAILY, (Reported) Gabapentin 300 Mg Capsule, 300 MG PO BID, (Reported) Guaifenesin 600 Mg Tab.er.12h, 600-1,200 MG PO BID PRN for CONGESTION, (Reported) Ipratropium/Albuterol Sulfate 3 Ml Ampul.neb, 3 ML IH Q6H PRN for SHORTNESS OF BREATH, (Reported) Krill/Om-3/Dha/Epa/Phospho/Ast 1 Each Capsule, 1 EACH PO HS, (Reported) Latanoprost 2.5 Ml Drops, 1 DROPS OU HS, (Reported) LAST FILLED 02-19-2020 #3/67 DAY SUPPLY Multivits-Min/Iron/FA/Lutein 1 Each Tablet, 1 EACH PO DAILY, (Reported) Nebivolol HCl 5 Mg Tablet, 5 MG PO HS, (Reported) Pantoprazole Sodium 40 Mg Tablet.dr, 40 MG PO BID, (Reported) Polyethylene Glycol 3350 17 Gm Powd.pack, 17 GM PO DAILY PRN for CONSTIPATION-2 ND LINE, (Reported) Potassium Chloride 10 Meq Capsule.er, 10 MEQ PO DAILY, (Reported) Sertraline HCl 100 Mg Tablet, 100 MG PO BID, (Reported) Sucralfate 1 Gm Tablet, 1 GM PO QIDACHS PRN for ULCERS, (Reported) Patient Home Medication List Home Medication List Reviewed: Yes Past Qzamgxa-Raqdbb-Kktomm Hx Patient Social History Smoking Status: Current Everyday Smoker Cigarettes Per Day: 30 Type Used: Cigarettes 2nd Hand Smoke Exposure: Yes Recent Hopitalizations: No Alcohol Use?: No Have you traveled recently?: No Immunizations Up To Date Tetanus Booster (TDap): Unknown Date of Pneumonia Vaccine: Dec 15, 2018 Date of Influenza Vaccine: Dec 12, 2016 Seasonal Allergies Seasonal Allergies: No Surgeries History of Surgeries: Yes Surgeries: Abdominal, Breast, Gallbladder, Hysterectomy, Orthopedic, Rectal, Tonsillectomy, Vascular Surgery (rt leg arterial bypass) Respiratory History of Respiratory Disorde: Yes (COPD--O2 AT 3L/NC CONTINUOUSLY AT NOC) Respiratory Disorders: COPD Cardiovascular History of Cardiac Disorders: Yes (CAROTID DISEASE; PERIPHERAL VASCULAR DISEASE--STENTS IN LEG, PER PT; CHF) Cardiac Disorders: Coronary Artery Disease, High Cholesterol, Hypertension, Peripheral Vascular Neurological History of Neurological Disord: Yes (LEFT SIDE WEAKNESS--LAST TIA 01/2016) Neurological Disorders: Seizure Disorder, Stroke, TIA 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 System Hx 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 Disorders: No Sexually Transmitted Disease: No HIV/AIDS: No Female 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 Disorders: 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, Menopausal Genitourinary History of Genitourinary Disor: No Gastrointestinal History of Gastrointestinal Di: Yes Gastrointestinal Disorders: Abdominal Hernia, Gastroesophageal Reflux, Chronic Constipation, Hemorrhoids, Polyps Musculoskeletal History of Musculoskeletal Dis: Yes (CHRONIC GENERALIZED PAIN , FX RIGHT HIP 09/09/15; LEFT HIP FX 05/2016) Musculoskeletal Disorders: Arthritis, Fibromyalgia, Chronic Back Pain, Fractures Endocrine History of Endocrine Disorders: No HEENT History of HEENT Disorders: Yes (GLASSES, DENTURES) HEENT Disorders: Glaucoma Hearing Impairment: Denies Cancer History of Cancer: Yes ("PRE-CANCER CELLS, CHEMO A PREVENTATIVE") Cancer: Breast Psychosocial History of Psychiatric Problem: Yes Behavioral Health Disorders: Anxiety Integumentary History of Skin or Integumenta: No Blood Transfusions History of Blood Disorders: Yes (ANEMIA) Adverse Reaction to a Blood Tr: No Family Medical History Significant Family History: Cancer (mother - gastric, sister - ovarian), Diabetes Family Medial History: Alcoholism 19 MOTHER, Onset:20's - 25 Aphasia 19 MOTHER, Onset:40's - 50 Asthma 19 FATHER, Onset:Unknown Congenital disease Son, Onset:Pre- Diabetes mellitus G8 SISTER, Onset:60 years & older FH: ovarian cancer G8 SISTER, Onset:Unknown FHx: stomach cancer 19 MOTHER, Onset:60 years & older Glaucoma Grandaughter, Onset:Unknown Hypertension 19 MOTHER, Onset:Unknown Infertility G8 SISTER, Onset:Pre- Tuberculosis G8 SISTER, Onset:30's - 40 No Family History of: AIDS Abdominal aortic aneurysm Medina's disease Alzheimer's disease Cancer of mouth Cardiovascular disease Cataracts Colon cancer Completed stroke Congenital heart disease Coronary thrombosis Cystic fibrosis Deafness or hearing loss Dementia Drug abuse Dysphasia Fibrocystic disease of breast Gastroenteritis Gout Headache disorder Hypercholesterolemia Kidney disease Myocardial infarction Neoplasm Not obtainable due to adoption Osteoporosis Parkinson's disease Prostate cancer Psychosocial problem Respiratory disorder Seizure disorder Severe allergy Thyroid disease Visual disorder Review of Systems-General Constitutional: No chills, No fever EENTM: No hearing loss, No ear pain, No blurred vision Respiratory: cough; No short of breath Cardiovascular: No chest pain, No palpitations Gastrointestinal: No abdominal pain; melena Genitourinary: No dysuria, No frequency Musculoskeletal: joint pain, muscle pain Skin: No lesions, No lumps Psychiatric/Neurological: Anxiety; Denies Headache Physical Exam-General Problems Physical Exam Vital Signs Vital Signs - First Documented 09/29/20 09/30/20 20:33 00:36 Temp 36.3 Pulse 89 Resp 18 B/P (MAP) 109/55 (73) Pulse Ox 98 O2 Delivery Nasal Cannula O2 Flow Rate 2.00 FiO2 28 Capillary Refill : Less Than 3 Seconds General Appearance: no apparent distress, other (chronically ill appearing) Eyes: Bilateral Eye PERRL HEENT: No scleral icterus (R), No scleral icterus (L); other (no teeth, black sediement on tongue) Cardiovascular: regular rate, rhythm, systolic murmur (3/6 systolic blowing mumur) Peripheral Pulses: 1+ Dorsalis Pedis (R); 2+ Left Dors-Pedis (L) Gastrointestinal: normal bowel sounds, soft, hernia (larger approx 10 cm ventral hernia) Back: no CVA tenderness Extremities: no pedal edema, no calf tenderness 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, alert, normal mood/affect Skin: warm/dry, cool (right LE) Lymphatic: no adenopathy (neck, axilla, groin) Data Review Labs Laboratory Tests 09/29/20 20:35: White Blood Count 5.5, Red Blood Count 1.95L, Hemoglobin 5.8*L, Hematocrit 20*L, Mean Corpuscular Volume 102H, Mean Corpuscular Hemoglobin 30, Mean Corpuscular Hemoglobin Concent 29L, Red Cell Distribution Width 16.2H, Platelet Count 253, M oksana Platelet Volume 10.5, Immature Granulocyte % (Auto) 1, Neutrophils (%) (Auto) 65, Lymphocytes (%) (Auto) 20, Monocytes (%) (Auto) 9, Eosinophils (%) (Auto) 4, Basophils (%) (Auto) 1, Neutrophils # (Auto) 3.6, Lymphocytes # (Auto) 1.1, Monocytes # (Auto) 0.5, Eosinophils # (Auto) 0.2, Basophils # (Auto) 0.0, Immature Granulocyte # (Auto) 0.1, Percent Immature Platelet Fraction 2.8, Blood Gas Puncture Site LEFT RAD, Blood Gas Patient Temperature 37.4, Arterial Blood pH 7.25*L, Arterial Blood Partial Pressure CO2 53H, Arterial Blood Partial Pressure O2 47L, Arterial Blood HCO3 23, Arterial Blood Total CO2 24.1, Arterial Blood Oxygen Saturation 73L, Arterial Blood Base Excess -3.5L, Rao Test YES- POS, Blood Gas Ventilator Setting NO, Blood Gas Inspired Oxygen 3L, Sodium Level 144, Potassium Level 3.8, Chloride Level 110H, Carbon Dioxide Level 20L, Anion Gap 14, Blood Urea Nitrogen 28H, Creatinine 1.45H, Estimat Glomerular Filtration Rate 35, BUN/Creatinine Ratio 19, Glucose Level 145H, Calcium Level 8.2L, Corrected Calcium 8.8, Total Bilirubin 0.2, Aspartate Amino Transf (AST/SGOT) 27, Alanine Aminotransferase (ALT/SGPT) 24, Alkaline Phosphatase 82, B-Type Natriuretic Peptide 731.8H, Total Protein 5.8L, Albumin 3.3, Procalcitonin 0.06, SARS-CoV-2 RNA (RT-PCR) Not Detected 09/30/20 05:05: Blood Gas Puncture Site R RAD, Blood Gas Patient Temperature 36.4, Arterial Blood pH 7.35L, Arterial Blood Partial Pressure CO2 42, Arterial Blood Partial P ressure O2 43L, Arterial Blood HCO3 23, Arterial Blood Total CO2 24.1, Arterial Blood Oxygen Saturation 73L, Arterial Blood Base Excess -2.1, Rao Test YES- POS, Blood Gas Ventilator Setting NO, Blood Gas Inspired Oxygen 21% BIPAP 09/30/20 05:50: White Blood Count 4.1L, Red Blood Count 2.74L, Hemoglobin 8.2#L, Hematocrit 27L, Mean Corpuscular Volume 99, Mean Corpuscular Hemoglobin 30, Mean Corpuscular Hemoglobin Concent 30L, Red Cell Distribution Width 15.9H, Platelet Count 223, Mean Platelet Volume 10.3, Immature Granulocyte % (Auto) 0, Neutrophils (%) (Auto) 87H, Lymphocytes (%) (Auto) 11L, Monocytes (%) (Auto) 2, Eosinophils (%) (Auto) 0, Basophils (%) (Auto) 0, Neutrophils # (Auto) 3.6, Lymphocytes # (Auto) 0.4L, Monocytes # (Auto) 0.1, Eosinophils # (Auto) 0.0, Basophils # (Auto) 0.0, Immature Granulocyte # (Auto) 0.0, Sodium Level 144, Potassium Level 4.2, Chloride Level 109H, Carbon Dioxide Level 21, Anion Gap 14, Blood Urea Nitrogen 27H, Creatinine 1.26, Estimat Glomerular Filtration Rate 41, BUN/Creatinine Ratio 21, Glucose Level 172H, Calcium Level 8.7, Neutrophils % (Manual) 87, Lymphocytes % (Manual) 10, Monocytes % (Manual) 2, Band Neutrophils 1, Hypochromasia MODERATE, Microcytosis SLIGHT, Macrocytosis SLIGHT Assessment/Plan Assessment/Plan Assessment/Plan anemia history of stomach ulcer history of rectal bleed s/p arterial bypass left leg tobacco abuse NSAID use Patient hemoglobin has increased with transfusions, repeat CBC AM. Patient needs EGD and colonoscopy, if patient Hgb is stable can perform as outpatient. Needs to be counseled on home medication use of protonix as a scheduled prescription, not PRN, needs to avoid NSAID use completely, hold plavix. SANDRA WEBB DO 09/30/20 1324: History of Present Illness History of Present Illness Time Seen by Provider: 09:31 History of Present Illness Surgery asked to consult regarding Melena and Anemia. HPI per ED: To ER by [facility] with reports of cough today shortness of breath for 2 to 3 days getting progressively worse. Street of stage III chronic kidney disease, history of gastric ulcer, history of anemia, history of coronary artery disease. She is had both Moderna Covid vaccinations. She lives at home with 24-hour care she smokes 1.5 pack of cigarettes per day. She wears oxygen at 3 L per nasal cannula. Upon EMS arrival she was wheezy and diminished. After a DuoNeb treatment she had improved aeration with reduced wheezing. No fevers. I saw pt this am, when she was in the ER she was found to be profoundly anemic but actually presented for respiratory problems. Her respiratory problems may be exacerbated by the anemia. Today she states she is breathing a little better; she remembers me because I did endoscopies on her appx 3 months ago for anemia. At that time an ulcer in the stomach was found and she went home on GI prophylaxis but also Plavix because of stenting. She states she only takes the protonix when she has stomach pain. Allergies and Home Medications Allergies Coded Allergies: Penicillins (Verified Allergy, Unknown, PT HAS RECEIVED ANCEF WITHOUT ISSUE, 05/30/14) meperidine (Verified Allergy, Unknown, 05/30/14) Home Medications Acetaminophen 500 Mg Tablet, 1,000 MG PO Q4H PRN for PAIN-MILD, (Reported) Albuterol Sulfate 1 Puff Puff, 2 PUFF IH Q4H PRN for SHORTNESS OF BREATH, (Reported) Atorvastatin Calcium 80 Mg Tablet, 80 MG PO DAILY Prescribed by: AMANDA HAYDEN on 06/28/20 1120 Buspirone HCl 5 Mg Tablet, 5 MG PO BID, (Reported) Calcium Carbonate/Vitamin D3 1 Each Tablet, 1 EACH PO DAILY, (Reported) Divalproex Sodium 250 Mg Tablet.dr, 250 MG PO HS, (Reported) Docusate Sodium 100 Mg Capsule, 100 MG PO BID, (Reported) Ferrous Sulfate 325 Mg Tablet, 325 MG PO BID, (Reported) Fluticasone/Umeclidin/Vilanter 1 Each Blst.w.dev, 1 PUFF INH DAILY, (Reported) LAST FILLED 12-26-2019 #1 Furosemide 40 Mg Tablet, 40 MG PO DAILY, (Reported) Gabapentin 300 Mg Capsule, 300 MG PO BID, (Reported) Guaifenesin 600 Mg Tab.er.12h, 600-1,200 MG PO BID PRN for CONGESTION, (Reported) Ipratropium/Albuterol Sulfate 3 Ml Ampul.neb, 3 ML IH Q6H PRN for SHORTNESS OF BREATH, (Reported) Krill/Om-3/Dha/Epa/Phospho/Ast 1 Each Capsule, 1 EACH PO HS, (Reported) Latanoprost 2.5 Ml Drops, 1 DROPS OU HS, (Reported) LAST FILLED 02-19-2020 #3/67 DAY SUPPLY Multivits-Min/Iron/FA/Lutein 1 Each Tablet, 1 EACH PO DAILY, (Reported) Nebivolol HCl 5 Mg Tablet, 5 MG PO HS, (Reported) Pantoprazole Sodium 40 Mg Tablet.dr, 40 MG PO BID, (Reported) Polyethylene Glycol 3350 17 Gm Powd.pack, 17 GM PO DAILY PRN for CONSTIPATION- 2ND LINE, (Reported) Potassium Chloride 10 Meq Capsule.er, 10 MEQ PO DAILY, (Reported) Sertraline HCl 100 Mg Tablet, 100 MG PO BID, (Reported) Sucralfate 1 Gm Tablet, 1 GM PO QIDACHS PRN for ULCERS, (Reported) Patient Home Medication List Home Medication List Reviewed: Yes Past Qsssnfw-Xrdgfu-Ollpro Hx Patient Social History Smoking Status: Current Everyday Smoker Sexual Abuse: No Surgeries History of Surgeries: Yes Surgeries: Abdominal, Breast, Coronary Stent, Gallbladder, Hysterectomy, Orth opedic, Rectal, Tonsillectomy, Vascular Surgery (rt leg arterial bypass) Respiratory History of Respiratory Disorde: Yes Respiratory Disorders: COPD Cardiovascular History of Cardiac Disorders: Yes (CAROTID DISEASE; PERIPHERAL VASCULAR DISEASE--STENTS IN LEG, PER PT; CHF) Cardiac Disorders: Coronary Artery Disease Neurological History of Neurological Disord: No Genitourinary History of Genitourinary Disor: No Gastrointestinal History of Gastrointestinal Di: Yes Gastrointestinal Disorders: Gastroesophageal Reflux, Alonso's Esophagus, Gastrointestinal Bleed, Hiatal Hernia Musculoskeletal History of Musculoskeletal Dis: Yes Musculoskeletal Disorders: Arthritis Endocrine History of Endocrine Disorders: No HEENT Loss of Vision: Denies Hearing Impairment: Denies Cancer History of Cancer: No Psychosocial History of Psychiatric Problem: Yes Family Medical History Significant Family History: Cancer (mother - gastric, sister - ovarian), Diabetes Family Medial History: Alcoholism 19 MOTHER, Onset:20's - 25 Aphasia 19 MOTHER, Onset:40's - 50 Asthma 19 FATHER, Onset:Unknown Congenital disease Son, Onset:Pre- Diabetes mellitus G8 SISTER, Onset:60 years & older FH: ovarian cancer G8 SISTER, Onset:Unknown FHx: stomach cancer 19 MOTHER, Onset:60 years & older Glaucoma Grandaughter, Onset:Unknown Hypertension 19 MOTHER, Onset:Unknown Infertility G8 SISTER, Onset:Pre- Tuberculosis G8 SISTER, Onset:30's - 40 Review of Systems-General Constitutional: No chills, No fever; malaise, weakness EENTM: No hearing loss, No ear pain, No blurred vision Respiratory: cough; No short of breath Cardiovascular: No chest pain; Hx of Intervention; No palpitations Gastrointestinal: No abdominal pain; melena; No nausea, No vomiting Genitourinary: No dysuria, No frequency Musculoskeletal: joint pain, muscle pain Skin: No lesions, No lumps Psychiatric/Neurological: Anxiety; Denies Headache, Denies Seizure, Denies Tremors Physical Exam-General Problems Physical Exam General Appearance: no apparent distress, thin, other (chronically ill appearing) Eyes: Bilateral Eye PERRL, Bilateral Eye EOMI HEENT: No scleral icterus (R), No scleral icterus (L); other (no teeth, black sediement on tongue) Neck: non-tender, supple Respiratory: no respiratory distress, no accessory muscle use, decreased breath sounds, crackles Cardiovascular: regular rate, rhythm, systolic murmur (3/6 systolic blowing mumur), other (+carotid bruits) Gastrointestinal: normal bowel sounds, soft, hernia (larger approx 10 cm ventral hernia) Back: no CVA tenderness Extremities: no pedal edema, no calf tenderness 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 COMPARISON: 06/28/2020. EXAMINATION: Single view of the chest was obtained. FINDINGS: Cardiac enlargement with moderate interstitial edema. There is no pneumothorax or effusion. Osseous structures are normal. IMPRESSION: CHF. Dictated by: Dictated on workstation # [id number] Dict: 09/29/202101 Trans: 09/29/202116 [facility] [id number] Interpreted by: LULA GODOY Electronically signed by: LULA GODOY 09/29/202116 Assessment/Plan Assessment/Plan Assessment/Plan Anemia History of stomach ulcer History of rectal bleed S/P arterial bypass left leg tobacco abuse NSAID use Patient hemoglobin has increased with transfusions, repeat CBC AM. Patient needs EGD and will perform tomorrow if ok with pt. Needs to be counseled on home medication use of protonix as a scheduled prescription, not PRN, needs to avoid NSAID use completely, hold plavix. Supervisory-Addendum Brief Verification & Attestation Participated in pt care: history, MDM, physical Personally performed: exam, history, MDM, supervision of care Care discussed with: Medical Student Procedures: n/a Verification and Attestation of Medical Student E/M Service A medical student performed and documented this service. I then reviewed and verified all information documented by the medical student and made modifications to such information, when appropriate. I personally performed a physical exam, medical decision making and then discussed any differences between the notes and made revisions as necessary to create one note. Sandra Webb , 09/30/20 , 13:29 NEENA ANNA MED STUDENT Sep 30, 2020 10:14 SANDRA WEBB DO Sep 30, 2020 13:24
--- NOTE | 2020-09-30 10:28 | Consultation-Cardiology ---
HPI-Cardiology Cardiology Consultation: Date of Consultation 09/30/20 Date of Admission Attending Physician Anita Land MD Admitting Physician Betsy Coronado DO Consulting Physician CHERYL MURRIETA JR, MD HPI: Time Seen by a Provider: 10:23 Chief Complaint: Reason for consultation: Acute on chronic diastolic heart failure. I had the pleasure of seeing Sarika in the intensive care unit today. She normally follows with one of my partners, Dr. Cortes. She has an extensive past cardiac history including coronary artery disease that has been managed medically without previous revascularization, severe peripheral vascular disease with a previous bypass to the right leg from the right arm, bilateral carotid disease with occlusion of the right coronary artery, previous cerebrovascular accident, hypertension, hyperlipidemia, chronic obstructive pulmonary disease, chronic respiratory failure with hypoxemia on home oxygen, chronic kidney disease, and ongoing cigarette smoking among several other less clinically significant issues. She states that over the past several days to week, she has had increasing dyspnea on exertion. On a couple of occasions she has fallen due to loss of balance. She denies syncope. Her shortness of breath gradually worsened to the point that she came to the hospital yesterday for further evaluation. She was found to have an elevated BNP level with pulmonary vascular congestion on her chest x-ray so a cardiology consultation was requested. This morning she states that her breathing is better. She has a chronic cough which has been slightly worse over the past few days. She will get some discomfort in her chest after she coughs but then this will gradually resolve. She denies paroxysmal nocturnal dyspnea, orthopnea, palpitations, or syncope. Ever since her right lower extremity bypass within the past 1-2 months, she has had some swelling of her right leg. Despite all these issues, she continues to smoke approximately 1- 1/2 packs of cigarettes per day. She lives alone but has a 24-hour caregiver. Certain portions of this document may have been dictated utilizing voice recognition technology. Inherent to this technology, typographical and grammatical errors may exist. As much as I am diligent to identify and correct these mistakes, some errors may remain in the document. Review of Systems-Cardiology Review of Systems Other comments Review of 10 organ systems is as per the history of present illness, otherwise negative. IKP-[id number]-[id number] Hx Patient Social History Smoking Status: Current Everyday Smoker 2nd Hand Smoke Exposure: Yes Have you traveled recently?: No Alcohol Use?: No Pt feels they are or have been: No Tobacco type used: Cigarettes Immunizations Up To Date Tetanus Booster (TDap): Unknown Date of Pneumonia Vaccine: Dec 15, 2018 Date of Influenza Vaccine: Dec 12, 2016 Past Medical History PMH As described under Assessment. Family Medical History Family Medical History: She does not report any family h/o CAD. Family History: Alcoholism 19 MOTHER, Onset:20's - 25 Aphasia 19 MOTHER, Onset:40's - 50 Asthma 19 FATHER, Onset:Unknown Congenital disease Son, Onset:Pre- Diabetes mellitus G8 SISTER, Onset:60 years & older FH: ovarian cancer G8 SISTER, Onset:Unknown FHx: stomach cancer 19 MOTHER, Onset:60 years & older Glaucoma Grandaughter, Onset:Unknown Hypertension 19 MOTHER, Onset:Unknown Infertility G8 SISTER, Onset:Pre- Tuberculosis G8 SISTER, Onset:30's - 40 No Family History of: AIDS Abdominal aortic aneurysm [place]'s disease Alzheimer's disease Cancer of mouth Cardiovascular disease Cataracts Colon cancer Completed stroke Congenital heart disease Coronary thrombosis Cystic fibrosis Deafness or hearing loss Dementia Drug abuse Dysphasia Fibrocystic disease of breast Gastroenteritis Gout Headache disorder Hypercholesterolemia Kidney disease Myocardial infarction Neoplasm Not obtainable due to adoption Osteoporosis Parkinson's disease Prostate cancer Psychosocial problem Respiratory disorder Seizure disorder Severe allergy Thyroid disease Visual disorder Allergies and Home Medications Allergies Coded Allergies: Penicillins (Verified Allergy, Unknown, PT HAS RECEIVED ANCEF WITHOUT ISSUE, 05/30/14) meperidine (Verified Allergy, Unknown, 05/30/14) Home Medications Acetaminophen 500 Mg Tablet, 1,000 MG PO Q4H PRN for PAIN-MILD, (Reported) Albuterol Sulfate 1 Puff Puff, 2 PUFF IH Q4H PRN for SHORTNESS OF BREATH, (Reported) Atorvastatin Calcium 80 Mg Tablet, 80 MG PO DAILY Prescribed by: AMANDA CORTES on 06/28/20 1120 Buspirone HCl 5 Mg Tablet, 5 MG PO BID, (Reported) Calcium Carbonate/Vitamin D3 1 Each Tablet, 1 EACH PO DAILY, (Reported) Divalproex Sodium 250 Mg Tablet.dr, 250 MG PO HS, (Reported) Docusate Sodium 100 Mg Capsule, 100 MG PO BID, (Reported) Ferrous Sulfate 325 Mg Tablet, 325 MG PO BID, (Reported) Fluticasone/Umeclidin/Vilanter 1 Each Blst.w.dev, 1 PUFF INH DAILY, (Reported) LAST FILLED 12-26-2019 #1 Furosemide 40 Mg Tablet, 40 MG PO DAILY, (Reported) Gabapentin 300 Mg Capsule, 300 MG PO BID, (Reported) Guaifenesin 600 Mg Tab.er.12h, 600-1,200 MG PO BID PRN for CONGESTION, (Reported) Ipratropium/Albuterol Sulfate 3 Ml Ampul.neb, 3 ML IH Q6H PRN for SHORTNESS OF BREATH, (Reported) Krill/Om-3/Dha/Epa/Phospho/Ast 1 Each Capsule, 1 EACH PO HS, (Reported) Latanoprost 2.5 Ml Drops, 1 DROPS OU HS, (Reported) LAST FILLED 02-19-2020 #3/67 DAY SUPPLY Multivits-Min/Iron/FA/Lutein 1 Each Tablet, 1 EACH PO DAILY, (Reported) Nebivolol HCl 5 Mg Tablet, 5 MG PO HS, (Reported) Pantoprazole Sodium 40 Mg Tablet.dr, 40 MG PO BID, (Reported) Polyethylene Glycol 3350 17 Gm Powd.pack, 17 GM PO DAILY PRN for CONSTIPATION- 2ND LINE, (Reported) Potassium Chloride 10 Meq Capsule.er, 10 MEQ PO DAILY, (Reported) Sertraline HCl 100 Mg Tablet, 100 MG PO BID, (Reported) Sucralfate 1 Gm Tablet, 1 GM PO QIDACHS PRN for ULCERS, (Reported) Patient Home Medication List Home Medication List Reviewed: Yes Exam Vital Signs Vital Signs Date Time Temp Pulse Resp B/P (MAP) Pulse Ox O2 Delivery O2 Flow Rate FiO2 09/30/20 09:00 78 18 138/71 (93) 99 Nasal Cannula 3.00 09/30/20 07:10 36.0 09/30/20 03:46 21 Physical Exam General: Alert. No acute distress. Well nourished and appears stated age.She appears chronically ill. Eye: Extraocular movements are intact. Conjunctivae are clear. There are no xanthelasma. HENT: Normocephalic. Atraumatic. Carotid pulsations 2/2 with bilateral bruits, left greater than right. Neck: Jugular venous pressure does not appear elevated. No thyromegaly appreciated. Respiratory: Lungs are clear to auscultation. Respirations are non-labored. Breath sounds are equal. Symmetrical chest wall expansion. Cardiovascular: Normal rate. Regular rhythm. 2/6 systolic ejection murmur. No gallop. Point of maximal impulse is not appear displaced. Good pulses equal in all extremities. 1+ right lower extremity edema. Gastrointestinal: Soft. Normal bowel sounds. Skin: Skin turgor is normal. There is no pallor. Musculoskeletal: No kyphosis or scoliosis appreciated. Neurologic: Alert and oriented to person, place, time. Cranial nerves 3-12 appear grossly intact. The patient has good motor tone strength in the upper and lower extremities bilaterally. Psychiatric: Cooperative. Appropriate mood & affect. Labs Laboratory Tests Test 09/29/20 20:35 09/30/20 05:05 09/30/20 05:50 Range/Units White Blood Count 5.5 4.1 L 4.3-11.0 10^3/uL Red Blood Count 1.95 L 2.74 L 3.80-5.11 10^6/uL Hemoglobin 5.8 *L 8.2 #L 11.5-16.0 g/dL Hematocrit 20 *L 27 L 35-52 % Mean Corpuscular Volume 102 H 99 80-99 fL Mean Corpuscular Hemoglobin 30 30 25-34 pg Mean Corpuscular Hemoglobin Concent 29 L 30 L 32-36 g/dL Red Cell Distribution Width 16.2 H 15.9 H 10.0-14.5 % Platelet Count 253 223 130-400 10^3/uL Mean Platelet Volume 10.5 10.3 9.0-12.2 fL Immature Granulocyte % (Auto) 1 0 % Neutrophils (%) (Auto) 65 87 H 42-75 % Lymphocytes (%) (Auto) 20 11 L 12-44 % Monocytes (%) (Auto) 9 2 0-12 % Eosinophils (%) (Auto) 4 0 0-10 % Basophils (%) (Auto) 1 0 0-10 % Neutrophils # (Auto) 3.6 3.6 1.8-7.8 10^3/uL Lymphocytes # (Auto) 1.1 0.4 L 1.0-4.0 10^3/uL Monocytes # (Auto) 0.5 0.1 0.0-1.0 10^3/uL Eosinophils # (Auto) 0.2 0.0 0.0-0.3 10^3/uL Basophils # (Auto) 0.0 0.0 0.0-0.1 10^3/uL Immature Granulocyte # (Auto) 0.1 0.0 0.0-0.1 10^3/uL Percent Immature Platelet Fraction 2.8 0.0-7.6 % Blood Gas Puncture Site LEFT RAD R RAD Blood Gas Patient Temperature 37.4 36.4 Arterial Blood pH 7.25 *L 7.35 L 7.37-7.43 Arterial Blood Partial Pressure CO2 53 H 42 35-45 MMHG Arterial Blood Partial Pressure O2 47 L 43 L 79-93 MMHG Arterial Blood HCO3 23 23 23-27 MMOL/L Arterial Blood Total CO2 24.1 24.1 21.0-31.0 MMOL/L Arterial Blood Oxygen Saturation 73 L 73 L 94-100 % Arterial Blood Base Excess -3.5 L -2.1 -2.5-2.5 MMOL/L Rao Test YES-POS YES-POS Blood Gas Ventilator Setting NO NO Blood Gas Inspired Oxygen 3L 21% BIPAP Sodium Level 144 144 135-145 MMOL/L Potassium Level 3.8 4.2 3.6-5.0 MMOL/L Chloride Level 110 H 109 H 98-107 MMOL/L Carbon Dioxide Level 20 L 21 21-32 MMOL/L Anion Gap 14 14 5-14 MMOL/L Blood Urea Nitrogen 28 H 27 H 7-18 MG/DL Creatinine 1.45 H 1.26 0.60-1.30 MG/DL Estimat Glomerular Filtration Rate 35 41 BUN/Creatinine Ratio 19 21 Glucose Level 145 H 172 H 70-105 MG/DL Calcium Level 8.2 L 8.7 8.5-10.1 MG/DL Corrected Calcium 8.8 8.5-10.1 MG/DL Total Bilirubin 0.2 0.1-1.0 MG/DL Aspartate Amino Transf (AST/SGOT) 27 5-34 U/L Alanine Aminotransferase (ALT/SGPT) 24 0-55 U/L Alkaline Phosphatase 82 40-136 U/L B-Type Natriuretic Peptide 731.8 H <100.0 PG/ML Total Protein 5.8 L 6.4-8.2 GM/DL Albumin 3.3 3.2-4.5 GM/DL Procalcitonin 0.06 <0.10 NG/ML SARS-CoV-2 RNA (RT-PCR) Not Detected Not Detecte Neutrophils % (Manual) 87 % Lymphocytes % (Manual) 10 % Monocytes % (Manual) 2 % Band Neutrophils 1 % Hypochromasia MODERATE Microcytosis SLIGHT Macrocytosis SLIGHT Radiology CARDIAC CATHETERIZATION WITH ABDOMINAL AORTOGRAM WITH RUNOFF. (06/28/2020): 1. Total occlusion of the left posterior descending artery, large circumflex artery calcified. Distal lesion reconstructed by collaterals. 2. Calcified coronary system with mild to moderate disease in the left anterior descending and right coronary artery, nonobstructive disease. 3. Small infrarenal aneurysm, heavily calcified arteries bilateral lower extremities, nonobstructive disease down to the trifurcation. There is a lesion at the left common femoral artery appears to be moderate to severe. LEXISCAN NUCLEAR STRESS TEST (06/14/2020): 1. Patient tolerated Lexiscan well. 2. Extracardiac attenuation due to the left arm being down affecting the quality of the images, there is decreased uptake involving the whole inferior wall with mild reversibility, could be secondary to the extracardiac attenuation. 3. Normal left ventricular size, inferior wall hypokinesia, EF 38%. ECHOCARDIOGRAM (01/01/2019): 1. Normal left ventricular chamber size with mild concentric left ventricular hypertrophy. Normal left ventricular systolic function with an estimated ejection fraction of 60-65%. 2. Doppler parameters are consistent with grade 1 diastolic dysfunction. 3. The left atrium is mildly dilated. 4. There is mild aortic valve sclerosis. 5. The right ventricular systolic pressure is estimated to be approximately 16 mmHg ECG Impression ECG Comment Electrocardiogram from last evening shows sinus rhythm with early transition and nonspecific ST changes. Diagnosis/Problems Diagnosis/Problems (1) Acute on chronic diastolic heart failure Assessment & Plan: She reports a history of heart failure and had previously undergone an echocardiogram showing a normal ejection fraction. She now has evidence of an elevated BNP level and vascular congestion on her chest x-ray. She received 1 dose of IV furosemide in the emergency room and her symptoms have improved. I will resume her regular oral dose of furosemide. She has an ech ocardiogram from this morning that is pending. Depending upon the results of the echocardiogram, we may need to make some adjustments to her medications. (2) Coronary artery disease without angina pectoris Assessment & Plan: She is not presently having angina. She has not required revascularization in the past. Aspirin and clopidogrel are on hold due to anemia that was present on admission. These should be resumed when able. Resume statin medication. Resume beta-nan when able. (3) Peripheral arterial disease Assessment & Plan: She had recent surgical revascularization of the right leg. As above, aspirin and clopidogrel are on hold due to anemia. These will need to be resumed when able. Continue statin medication. Cigarette smoking cessation is of paramount importance. (4) Essential hypertension Assessment & Plan: Beta-nan presently on hold. We will resume when able. As above, if her ejection fraction is significantly depressed, we may need to change nebivolol over to metoprolol succinate. I would be hesitant to give her carvedilol because this could cause worsening shortness of breath due to her chronic obstructive pulmonary disease. (5) Mixed hyperlipidemia Assessment & Plan: I have resumed her statin medication. I have added a lipid panel to this morning's blood sample. (6) Chronic obstructive pulmonary disease Assessment & Plan: This is being managed by the hospitalist. (7) Cerebrovascular accident due to cerebral artery occlusion Status: Acute Assessment & Plan: Resume aspirin and clopidogrel when able. I have taken the liberty of restarting statin medication. (8) Cigarette smoker Assessment & Plan: She needs to quit smoking. She seems to understand the health implications of smoking and how it has affected both her lungs as well as her arteries. Nonetheless, she continues to smoke. CHERYL MURRIETA JR, MD Sep 30, 2020 10:28
[2020-09-30 11:09] LABS: TRIGLYCERIDES 74 MG/DL (<150); VLDL CHOLESTEROL 15 MG/DL (5-40)
[2020-09-30 11:14] LABS: CHOLESTEROL 130 MG/DL (< 200)
[2020-09-30 11:15] LABS: HDL CHOLESTEROL 41 MG/DL (40-60)
--- NOTE | 2020-09-30 11:24 | Tele-ICU Consult ---
History of Present Illness History of Present Illness Date Seen by Provider: Sep 30, 2020 Time Seen by Provider: 11:31 Date of Admission 09/30/20 Reason for Visit: Anemia History of Present Illness She is a elderly female with past medical history of coronary artery disease which is managed medically, peripheral arterial disease presented to the emergency room with a complaint of fall weakness and shortness of breath and found to have air hemoglobin of 5.8 g. Apparently she was recently started on Plavix for peripheral lower extremity arterial bypass surgery. Chest x-ray showed slight pulmonary edema. She is transfused and given Lasix and now feeli ng better last night she was on a BiPAP ventilation currently she is back on 3 L nasal cannula. Now she states that she is ready to go home. Apparently she was recently diagnosed with a gastric ulcer and started on a Protonix. She has been a longstanding smoker and has multiple coronary artery disease as well as peripheral arterial disease. Currently she denies any chest pain or shortness of breath at rest. No fever present. Reportedly she had a black stools for several weeks. Denies any abdominal pain at this time. Allergies and Home Medications Allergies Coded Allergies: Penicillins (Verified Allergy, Unknown, PT HAS RECEIVED ANCEF WITHOUT ISSUE, 05/30/14) meperidine (Verified Allergy, Unknown, 05/30/14) Home Medications Acetaminophen 500 Mg Tablet, 1,000 MG PO Q4H PRN for PAIN-MILD, (Reported) Albuterol Sulfate 1 Puff Puff, 2 PUFF IH Q4H PRN for SHORTNESS OF BREATH, (Reported) Atorvastatin Calcium 80 Mg Tablet, 80 MG PO DAILY Prescribed by: AMANDA HAYDEN on 06/28/20 1120 Buspirone HCl 5 Mg Tablet, 5 MG PO BID, (Reported) Calcium Carbonate/Vitamin D3 1 Each Tablet, 1 EACH PO DAILY, (Reported) Divalproex Sodium 250 Mg Tablet.dr, 250 MG PO HS, (Reported) Docusate Sodium 100 Mg Capsule, 100 MG PO BID, (Reported) Ferrous Sulfate 325 Mg Tablet, 325 MG PO BID, (Reported) Fluticasone/Umeclidin/Vilanter 1 Each Blst.w.dev, 1 PUFF INH DAILY, (Reported) LAST FILLED 12-26-2019 #1 Furosemide 40 Mg Tablet, 40 MG PO DAILY, (Reported) Gabapentin 300 Mg Capsule, 300 MG PO BID, (Reported) Guaifenesin 600 Mg Tab.er.12h, 600-1,200 MG PO BID PRN for CONGESTION, (Reported) Ipratropium/Albuterol Sulfate 3 Ml Ampul.neb, 3 ML IH Q6H PRN for SHORTNESS OF BREATH, (Reported) Krill/Om-3/Dha/Epa/Phospho/Ast 1 Each Capsule, 1 EACH PO HS, (Reported) Latanoprost 2.5 Ml Drops, 1 DROPS OU HS, (Reported) LAST FILLED 02-19-2020 #3/67 DAY SUPPLY Multivits-Min/Iron/FA/Lutein 1 Each Tablet, 1 EACH PO DAILY, (Reported) Nebivolol HCl 5 Mg Tablet, 5 MG PO HS, (Reported) Pantoprazole Sodium 40 Mg Tablet.dr, 40 MG PO BID, (Reported) Polyethylene Glycol 3350 17 Gm Powd.pack, 17 GM PO DAILY PRN for CONSTIPATION- 2ND LINE, (Reported) Potassium Chloride 10 Meq Capsule.er, 10 MEQ PO DAILY, (Reported) Sertraline HCl 100 Mg Tablet, 100 MG PO BID, (Reported) Sucralfate 1 Gm Tablet, 1 GM PO QIDACHS PRN for ULCERS, (Reported) Past Medical/Social/Family Hx Patient Social History Tobacco Use?: Yes Tobacco type used: Cigarettes Smoking Status: Current Everyday Smoker Use of E-Cig and/or Vaping dev: No Substance use?: No Alcohol Use?: No Pt stated abuse/neglect: No Immunizations Up To Date First/Initial COVID19 Vaccinat: 05/07 Second COVID19 Vaccination Melo: 06/04 Tetanus Booster (TDap): Unknown Date of Pneumonia Vaccine: Dec 15, 2018 Current Status status: No Advance Directives: No Communicates: Verbally Primary Language: Sen[place]alese Preferred Spoken Language: Sen[place]alese Is interpretation needed?: No Sensory deficits: Vision impairment Implanted or Applied Medical D: None Review of Systems Constitutional: see HPI (per attending physician) Sepsis Event Evaluation Height, Weight, BMI Height: 5'8.00" Weight: 155lbs. 0.0oz. 70.448695fm; 26.02 BMI Method:Estimated Exam Exam Patient acknowledged, consented, and participated in this virtual visit which was conducted using real time audio/video Vital Signs Date Time Temp Pulse Resp B/P (MAP) Pulse Ox O2 Delivery O2 Flow Rate FiO2 09/30/20 11:12 91 Nasal Cannula 3.00 09/30/20 11:00 80 17 115/58 (77) 92 Nasal Cannula 3.00 09/30/20 10:00 78 18 114/54 (74) 95 Nasal Cannula 3.00 09/30/20 09:00 78 18 138/71 (93) 99 Nasal Cannula 3.00 09/30/20 08:30 Nasal Cannula 3.00 09/30/20 08:00 64 13 130/67 (88) 92 NIV Bilevel 21.00 09/30/20 08:00 96 Nasal Cannula 3.00 09/30/20 07:10 36.0 09/30/20 07:00 74 09/30/20 06:58 76 14 100 21.00 09/30/20 05:00 88 22 117/61 (79) 93 NIV Bilevel 21.00 09/30/20 04:00 80 17 134/69 (90) 96 NIV Bilevel 21.00 09/30/20 03:46 36.0 74 18 130/65 97 NIV Bilevel 21 09/30/20 02:06 36.5 77 15 132/65 96 NIV Bilevel 21 09/30/20 01:47 36.3 78 13 127/63 97 NIV Bilevel 21 09/30/20 01:34 NIV Bilevel 21.00 09/30/20 01:14 36.4 70 12 110/51 100 NIV Bilevel 28 09/30/20 01:00 73 09/30/20 00:49 NIV Bilevel 28.00 09/30/20 00:40 75 15 99 30.00 09/30/20 00:36 36.3 89 98 28 09/30/20 00:00 79 14 104/54 (71) 95 Nasal Cannula 2.00 09/29/20 23:35 36.4 77 12 99/51 96 Nasal Cannula 2.00 09/29/20 23:32 36.8 78 14 95/51 (66) 96 Nasal Cannula 2.00 09/29/20 23:25 Nasal Cannula 2.00 09/29/20 23:20 36.8 79 14 108/49 96 Nasal Cannula 2.00 09/29/20 22:36 35.8 80 14 115/57 (76) 99 Nasal Cannula 2.00 09/29/20 22:31 88 09/29/20 22:14 36.4 72 18 90/42 (73) 98 Nasal Cannula 2.00 09/29/20 20:33 36.3 89 18 109/55 (73) 98 Nasal Cannula 2.00 I & O 09/30/20 07:00 Intake Total 0 ml Balance 0 ml Height & Weight Height: 5'8.00" Weight: 155lbs. 0.0oz. [id number]; 26.02 BMI Method:Estimated General Appearance: No Apparent Distress, Chronically ill, Other (comfortable on bipap) HEENT: PERRL/EOMI Neck: Full Range of Motion Respiratory: Chest Non Tender, No Accessory Muscle Use, No Respiratory Distress, Decreased Breath Sounds Cardiovascular: Regular Rate, Rhythm, No Edema, No Murmur Capillary Refill: Less Than 3 Seconds Peripheral Pulses: 1+ Dorsalis Pedis (R); 2+ Left Dors-Pedis (L) Gastrointestinal: normal bowel sounds, soft, hernia (larger approx 10 cm ventral hernia) Extremity: Normal Capillary Refill, Normal Inspection Neurologic/Psychiatric: Alert, Oriented x3 Skin: Normal Color, Warm/Dry Results Lab Laboratory Tests 09/29/20 20:35 09/30/20 05:50 Meds reviewed Radiology cxr reviewed Assessment/Plan Assessment/Plan 1. Acute on chronic respiratory failure due to underlying COPD and possibly some diastolic congestive heart failure 2. Severe peripheral arterial disease 3. Gastrointestinal bleeding with severe anemia 4. History of tobacco abuse.. Recommendation 1. Continue supplemental oxygen with nasal cannula 2. IV Lasix per cardiology 3. Blood transfusion has been done already 4. Protonix IV 5. General surgery consultation. Per possible endoscopy. 6. We will continue bronchodilators and repeat a chest x-ray tomorrow. 7. Advised to quit smoking Critical Care: Critically Ill Patient Time spent with patient (mins): 40 Diagnosis/Problems Problems/Diagonsis (1) Acute and chronic respiratory failure (2) Acute blood loss anemia (3) PVD (peripheral vascular disease) (4) Coronary artery disease without angina pectoris (5) Tobacco abuse counseling (6) Tobacco abuse disorder SUZANNE AGUILERA MD Sep 30, 2020 11:24
[2020-09-30] MEDS: methylPREDNISolone 40 MG/ML (Solu-MEDROL) VIAL IV SCH ×2 (14:41→21:05)
[2020-09-30] MEDS ORDERED: ONDANSETRON 4 MG/2 ML (SDV) Z0FRAN IVP PRN (16:15)
[2020-09-30] MEDS: morphine INJ 4 MG/ML 1 ML (VIAL/SYRINGE) IVP PRN ×2 (16:31→21:10)
[2020-09-30] MEDS ORDERED: FUROSEMIDE 40 MG/4 ML INJ (LASIX) IVP ONE (18:15)
[2020-10-01] VITALS (8 sets, daily range): BP systolic 94–135; BP diastolic 44–64
[2020-10-01] MEDS: morphine INJ 4 MG/ML 1 ML (VIAL/SYRINGE) IVP PRN ×2 (01:12→20:26)
[2020-10-01] MEDS ORDERED: NITROGLYCERIN 2% OINT 1 GM UNIT DOSE PACKET TOP ONE (01:45)
[2020-10-01 02:34] LABS: BASOPHILS % (AUTO) 0 % (0-10); EOSINOPHILS % (AUTO) 0 % (0-10); HEMATOCRIT 26 % (35-52); HEMOGLOBIN 7.6 g/dL (11.5-16.0); LYMPHOCYTES # (AUTO) 0.3 10^3/uL (1.0-4.0); LYMPHOCYTES % (AUTO) 4 % (12-44); MEAN CORPUSCULAR HEMOGLOBIN 30 pg (25-34); MEAN CORPUSCULAR HGB CONC 30 g/dL (32-36); MEAN CORPUSCULAR VOLUME 100 fL (80-99); MEAN PLATELET VOLUME 10.1 fL (9.0-12.2); MONOCYTES # (AUTO) 0.4 10^3/uL (0.0-1.0); MONOCYTES % (AUTO) 5 % (0-12); NEUTROPHILS # (AUTO) 6.5 10^3/uL (1.8-7.8); NEUTROPHILS % (AUTO) 90 % (42-75); PLATELET COUNT 230 10^3/uL (130-400); WHITE BLOOD COUNT 7.2 10^3/uL (4.3-11.0)
[2020-10-01 02:45] LABS: ALBUMIN 3.3 GM/DL (3.2-4.5); POTASSIUM 4.3 MMOL/L (3.6-5.0)
[2020-10-01 02:46] LABS: CALCIUM 8.4 MG/DL (8.5-10.1)
[2020-10-01 02:47] LABS: TOTAL PROTEIN 5.8 GM/DL (6.4-8.2)
[2020-10-01 02:49] LABS: BILIRUBIN,TOTAL 0.3 MG/DL (0.1-1.0)
[2020-10-01 02:51] LABS: CREATININE SERUM 1.17 MG/DL (0.60-1.30)
[2020-10-01] MEDS: NS IV 1000 ML 1,000 ML IV SCH ×2 (03:38→12:10)
[2020-10-01] MEDS: methylPREDNISolone 40 MG/ML (Solu-MEDROL) VIAL IV SCH ×3 (05:58→21:41)
[2020-10-01] MEDS: RT-ALBUTEROL/IPRATROPIUM 3 ML (DUONEB) VIAL INH SCH ×4 (07:03→18:29)
[2020-10-01] MEDS: PANTOPRAZOLE 40 MG (PROTONIX) VIAL IV SCH ×2 (08:27→20:27)
[2020-10-01] MEDS: FUROSEMIDE 40 MG (LASIX) TAB PO SCH (08:27)
--- NOTE | 2020-10-01 08:45 | Cardiology Progress Note ---
Progress Note-Cardiology Events since last exam Time Seen by Provider: 08:40 Events since last exam We are seeing her due to acute on chronic diastolic heart failure and now a probable non-ST elevation myocardial infarction. Yesterday she wanted to leave AGAINST MEDICAL ADVICE. She ended up staying. Her hemoglobin seems to have stab ilized after several blood transfusions. Surgery plans on an upper endoscopy this morning. Last evening I was called because she had a brief episode of chest pain. This resolved with morphine. She denies any change in her breathing. She denies any further chest discomfort this morning. A follow-up electrocardiogram was unchanged. I ordered troponin levels which are positive and rising. She denies palpitations, syncope, or ankle edema. Vitals Last set of Vitals Signs Vital Signs 09/30/20 10/01/20 10/01/20 10/01/20 03:46 04:00 07:30 08:00 Temp 36.6 Pulse 80 Resp 39 B/P (MAP) 105/61 (76) Pulse Ox 95 O2 Delivery Nasal Cannula O2 Flow Rate 3.00 FiO2 21 Labs Labs Laboratory Tests 10/01/20 02:00 Exam Vital Signs Vital Signs Date Time Temp Pulse Resp B/P (MAP) Pulse Ox O2 Delivery O2 Flow Rate FiO2 10/01/20 08:00 95 Nasal Cannula 3.00 10/01/20 08:00 80 105/61 (76) 10/01/20 07:30 36.6 10/01/20 04:00 39 09/30/20 03:46 21 Physical Exam General: Alert. No acute distress. She appears chronically ill. Eye: No xanthelasma. HENT: Normocephalic. Neck: Jugular venous pressure does not appear elevated. Respiratory: Lungs Have scattered wheezes in all lung field. Respirations are non-labored. Breath sounds are equal. Symmetrical chest wall expansion. Cardiovascular: Normal rate. Regular rhythm. No murmur. No gallop. No edema. Gastrointestinal: Soft. Normal bowel sounds. Skin: Warm. Dry. Neurologic: Alert and oriented to person, place, time. Cranial nerves 3-11 gr ossly intact. Psychiatric: Cooperative. Appropriate mood & affect. Labs Laboratory Tests Test 09/30/20 10:00 10/01/20 02:00 10/01/20 05:52 Range/Units Triglycerides Level 74 <150 MG/DL Cholesterol Level 130 < 200 MG/DL LDL Cholesterol Direct 78 1-129 MG/DL VLDL Cholesterol 15 5-40 MG/DL HDL Cholesterol 41 40-60 MG/DL White Blood Count 7.2 4.3-11.0 10^3/uL Red Blood Count 2.54 L 3.80-5.11 10^6/uL Hemoglobin 7.6 L 11.5-16.0 g/dL Hematocrit 26 L 35-52 % Mean Corpuscular Volume 100 H 80-99 fL Mean Corpuscular Hemoglobin 30 25-34 pg Mean Corpuscular Hemoglobin Concent 30 L 32-36 g/dL Red Cell Distribution Width 16.1 H 10.0-14.5 % Platelet Count 230 130-400 10^3/uL Mean Platelet Volume 10.1 9.0-12.2 fL Immature Granulocyte % (Auto) 1 % Neutrophils (%) (Auto) 90 H 42-75 % Lymphocytes (%) (Auto) 4 L 12-44 % Monocytes (%) (Auto) 5 0-12 % Eosinophils (%) (Auto) 0 0-10 % Basophils (%) (Auto) 0 0-10 % Neutrophils # (Auto) 6.5 1.8-7.8 10^3/uL Lymphocytes # (Auto) 0.3 L 1.0-4.0 10^3/uL Monocytes # (Auto) 0.4 0.0-1.0 10^3/uL Eosinophils # (Auto) 0.0 0.0-0.3 10^3/uL Basophils # (Auto) 0.0 0.0-0.1 10^3/uL Immature Granulocyte # (Auto) 0.0 0.0-0.1 10^3/uL Sodium Level 142 135-145 MMOL/L Potassium Level 4.3 3.6-5.0 MMOL/L Chloride Level 107 98-107 MMOL/L Carbon Dioxide Level 23 21-32 MMOL/L Anion Gap 12 5-14 MMOL/L Blood Urea Nitrogen 29 H 7-18 MG/DL Creatinine 1.17 0.60-1.30 MG/DL Estimat Glomerular Filtration Rate 45 BUN/Creatinine Ratio 25 Glucose Level 139 H 70-105 MG/DL Calcium Level 8.4 L 8.5-10.1 MG/DL Corrected Calcium 9.0 8.5-10.1 MG/DL Total Bilirubin 0.3 0.1-1.0 MG/DL Aspartate Amino Transf (AST/SGOT) 35 H 5-34 U/L Alanine Aminotransferase (ALT/SGPT) 32 0-55 U/L Alkaline Phosphatase 72 40-136 U/L Troponin I 0.392 *H 0.474 *H <0.028 NG/ML Total Protein 5.8 L 6.4-8.2 GM/DL Albumin 3.3 3.2-4.5 GM/DL Diagnosis/Problems Diagnosis/Problems (1) Non-ST elevation myocardial infarction (NSTEMI), initial care episode Assessment & Plan: This is a new finding in this patient. She does have chronic ST changes. I reviewed her cardiac catheterization films from June 2020 and she appears to have a subtotal or chronic total occlusion of the distal segment of the dominant left circumflex coronary artery. There are some faint left to left collaterals seen filling the distal vessel. I suspect this may be the infarct-related vessel for this non-ST elevation myocardial infarction. This may be a type II NSTEMI related to her severe anemia. She will be undergo ing endoscopy later today to help determine the cause of the gastrointestinal hemorrhage. This is a very difficult situation. The patient tried to leave AMA yesterday. She is also DNR. It is conceivable that we could attempt intervention on the distal left circumflex coronary artery but this would be a very high risk procedure. Furthermore, due to her extensive peripheral vascular disease, jus sing the most appropriate access site would also need to be taken into consideration. This would not certainly not be a standard straightforward procedure. I would favor proceeding with the gastrointestinal evaluation to identify the source of bleeding and treat this appropriately. We will resume her antiplatelet agents when able. She will need intensive statin therapy and beta-nan. I will plan on a follow-up echocardiogram tomorrow. I would recommend getting her hematologic and cardiac status stabilized and then we could see how she is doing after discharge and to have further discussions about whether or not to pursue high risk percutaneous coronary intervention. (2) Acute on chronic diastolic heart failure Assessment & Plan: She reports a history of heart failure and had previously undergone an echocardiogram showing a normal ejection fraction. I have ordered a follow-up echocardiogram for tomorrow. She had a chest x-ray this morning and the radiology report is pending. Continue with oral diuretic for the time being. (3) Acute kidney injury superimposed on chronic kidney disease Assessment & Plan: This is most likely related to the acute blood loss anemia. Her renal function is gradually improving. Her renal dysfunction also makes percutaneous coronary intervention high risk. (4) Coronary artery disease with unstable angina pectoris Assessment & Plan: She had an episode of angina last evening. She has not required revascularization in the past. Aspirin and clopidogrel are on hold due to anemia that was present on admission. These should be resumed when able. I have resumed atorvastatin. We will resume beta-nan when able. (5) Peripheral arterial disease Assessment & Plan: She had recent surgical revascularization of the right leg. As above, aspirin and clopidogrel are on hold due to anemia. These will need to be resumed when able. Continue statin medication. Cigarette smoking cessation is of paramount importance. As above, this will make any future consideration of percutaneous coronary intervention somewhat difficult due to the extent of her peripheral vascular disease. A left radial artery approach may be best. (6) Essential hypertension Assessment & Plan: Beta-nan presently on hold. We will resume when able. She has been taking nebivolol at home. If she has a significantly depressed ejection fraction, we may need to change this over to metoprolol succinate. (7) Mixed hyperlipidemia Assessment & Plan: I have resumed her statin medication. (8) Chronic obstructive pulmonary disease Assessment & Plan: This is being managed by the hospitalist. (9) Cerebrovascular accident due to cerebral artery occlusion Status: Acute Assessment & Plan: Resume aspirin and clopidogrel when able. Continue statin. (10) Cigarette smoker Assessment & Plan: She needs to quit smoking. She seems to understand the health implications of smoking and how it has affected both her lungs as well as her arteries. Nonetheless, she continues to smoke. CHERYL MURRIETA JR, MD Oct 01, 2020 08:45
--- NOTE | 2020-10-01 09:14 | Progress Note - Surgery ---
Subjective Time Seen by a Provider: 08:48 Subjective/Events-last exam Pt seen and examined, no new complaints and she denies chest pain now. Nurse states report was pt had sever chest pain last night that went away with a little morphine and NTG paste. [employer] thinks she may be infarcting, but that can't do anything until we know she doesn't have a bleeding ulcer. Review of Systems General: No Chills; Fatigue Pulmonary: No Dyspnea, No Cough Cardiovascular: Chest Pain; No: Palpitations Gastrointestinal: No: Nausea, Vomiting, Abdominal Pain Objective Exam Vital Signs Date Time Temp Pulse Resp B/P (MAP) Pulse Ox O2 Delivery O2 Flow Rate FiO2 10/01/20 08:00 80 105/61 (76) 95 Nasal Cannula 3.00 10/01/20 07:30 36.6 10/01/20 07:03 97 Nasal Cannula 3.00 10/01/20 07:00 73 10/01/20 05:20 Nasal Cannula 3.00 10/01/20 04:00 76 39 110/55 (73) 97 Nasal Cannula 5.00 10/01/20 01:00 90 10/01/20 00:13 Nasal Cannula 5.00 10/01/20 00:00 95 19 105/44 (64) 79 NIV Bilevel 40.00 09/30/20 23:00 88 13 104/45 (64) 97 NIV Bilevel 40.00 09/30/20 22:14 NIV Bilevel 40.00 09/30/20 22:00 96 23 98/56 (70) 96 Nasal Cannula 5.00 09/30/20 21:00 118 29 108/56 (73) 93 Nasal Cannula 5.00 09/30/20 20:00 37.1 09/30/20 20:00 95 Nasal Cannula 5.00 09/30/20 20:00 105 105/65 (78) 92 Nasal Cannula 5.00 09/30/20 19:31 102 18 112/62 (79) 95 Nasal Cannula 5.00 09/30/20 19:00 109 09/30/20 18:36 94 Nasal Cannula 5.00 09/30/20 18:00 105 23 94 NIV Bilevel 40.00 09/30/20 17:45 NIV Bilevel 40.00 09/30/20 17:26 Nasal Cannula 6.00 09/30/20 17:00 111 26 112/71 (85) 92 Nasal Cannula 3.00 09/30/20 16:00 102 112/94 (100) 94 Nasal Cannula 3.00 09/30/20 16:00 35.8 09/30/20 15:00 90 21 96/57 (70) Nasal Cannula 3.00 09/30/20 14:49 93 Nasal Cannula 3.00 09/30/20 14:00 99 102/67 (79) Nasal Cannula 3.00 09/30/20 13:00 88 09/30/20 13:00 97 27 109/46 (67) Nasal Cannula 3.00 09/30/20 12:00 87 35 93 Nasal Cannula 3.00 09/30/20 11:12 91 Nasal Cannula 3.00 09/30/20 11:00 80 17 115/58 (77) 92 Nasal Cannula 3.00 09/30/20 10:00 78 18 114/54 (74) 95 Nasal Cannula 3.00 I & O 10/01/20 07:00 Intake Total 1580 ml Output Total 200 ml Balance 1380 ml Capillary Refill : Less Than 3 Seconds General Appearance: No Apparent Distress, Chronically ill, Other (comfortable on bipap) HEENT: PERRL/EOMI Neck: Full Range of Motion Respiratory: Chest Non Tender, No Accessory Muscle Use, No Respiratory Distress, Decreased Breath Sounds Cardiovascular: Regular Rate, Rhythm, No Edema, No Murmur Peripheral Pulses: 1+ Dorsalis Pedis (R); 2+ Left Dors-Pedis (L) Gastrointestinal: normal bowel sounds, soft, hernia (larger approx 10 cm ventral hernia) Extremity: Normal Capillary Refill, Normal Inspection Neurologic/Psychiatric: Alert, Oriented x3 Skin: Normal Color, Warm/Dry Results Lab Laboratory Tests 09/30/20 10:00: Triglycerides Level 74, Cholesterol Level 130, LDL Cholesterol Direct 78, VLDL Cholesterol 15, HDL Cholesterol 41 10/01/20 02:00: White Blood Count 7.2, Red Blood Count 2.54L, Hemoglobin 7.6L, Hematocrit 26L, Mean Corpuscular Volume 100H, Mean Corpuscular Hemoglobin 30, Mean Corpuscular H emoglobin Concent 30L, Red Cell Distribution Width 16.1H, Platelet Count 230, Mean Platelet Volume 10.1, Immature Granulocyte % (Auto) 1, Neutrophils (%) (Auto) 90H, Lymphocytes (%) (Auto) 4L, Monocytes (%) (Auto) 5, Eosinophils (%) (Auto) 0, Basophils (%) (Auto) 0, Neutrophils # (Auto) 6.5, Lymphocytes # (Auto) 0.3L, Monocytes # (Auto) 0.4, Eosinophils # (Auto) 0.0, Basophils # (Auto) 0.0, Immature Granulocyte # (Auto) 0.0, Sodium Level 142, Potassium Level 4.3, Chloride Level 107, Carbon Dioxide Level 23, Anion Gap 12, Blood Urea Nitrogen 29H, Creatinine 1.17, Estimat Glomerular Filtration Rate 45, BUN/Creatinine Ratio 25, Glucose Level 139H, Calcium Level 8.4L, Corrected Calcium 9.0, Total Bilirubin 0.3, Aspartate Amino Transf (AST/SGOT) 35H, Alanine Aminotransferase (ALT/SGPT) 32, Alkaline Phosphatase 72, Troponin I 0.392*H, Total Protein 5.8L, Albumin 3.3 10/01/20 05:52: Troponin I 0.474*H Assessment/Plan Assessment/Plan Assessment/Plan Anemia History of stomach ulcer History of rectal bleed S/P arterial bypass left leg tobacco abuse NSAID use Patient hemoglobin has increased with transfusions and appears stable now, still having some melena. Plan for EGD this am; pt is agreeable to this. Needs to be counseled on home medication use of protonix as a scheduled prescription, not PRN, needs to avoid NSAID use completely. SANDRA WEBB DO Oct 01, 2020 09:14
[2020-10-01] MEDS ORDERED: PROPOFOL DRIP (ICU) 100 ML IV ONE (09:37)
--- NOTE | 2020-10-01 09:44 | Tele-ICU Progress Note ---
Subjective Date Seen by a Provider: Oct 01, 2020 Time Seen by a Provider: 09:38 Subjective/Events-last exam Patient today is awake alert and oriented. She is a scheduled follow-up EGD this a.m. Hemoglobin eight at 7.6. Last night she had a chest pain and her troponin increased. Cardiology on the case. Currently has no chest pain. Her oxygen saturation is 95% with 3 L nasal cannula which is her baseline. Hemodynamically stable. Heart rate is eighty-three currently. Video visit made. Sepsis Event Evaluation Height, Weight, BMI Height: 5'8.00" Weight: 155lbs. 0.0oz. [id number]; 26.02 BMI Method:Estimated Exam Exam Patient acknowledged, consented, and participated in this virtual visit which was conducted using real time audio/video Vital Signs Date Time Temp Pulse Resp B/P (MAP) Pulse Ox O2 Delivery O2 Flow Rate FiO2 10/01/20 08:00 95 Nasal Cannula 3.00 10/01/20 08:00 80 105/61 (76) 95 Nasal Cannula 3.00 10/01/20 07:30 36.6 10/01/20 07:03 97 Nasal Cannula 3.00 10/01/20 07:00 73 10/01/20 05:20 Nasal Cannula 3.00 10/01/20 04:00 76 39 110/55 (73) 97 Nasal Cannula 5.00 10/01/20 01:00 90 10/01/20 00:13 Nasal Cannula 5.00 10/01/20 00:00 95 19 105/44 (64) 79 NIV Bilevel 40.00 09/30/20 23:00 88 13 104/45 (64) 97 NIV Bilevel 40.00 09/30/20 22:14 NIV Bilevel 40.00 09/30/20 22:00 96 23 98/56 (70) 96 Nasal Cannula 5.00 09/30/20 21:00 118 29 108/56 (73) 93 Nasal Cannula 5.00 09/30/20 20:00 37.1 09/30/20 20:00 95 Nasal Cannula 5.00 09/30/20 20:00 105 105/65 (78) 92 Nasal Cannula 5.00 09/30/20 19:31 102 18 112/62 (79) 95 Nasal Cannula 5.00 09/30/20 19:00 109 09/30/20 18:36 94 Nasal Cannula 5.00 09/30/20 18:00 105 23 94 NIV Bilevel 40.00 09/30/20 17:45 NIV Bilevel 40.00 09/30/20 17:26 Nasal Cannula 6.00 09/30/20 17:00 111 26 112/71 (85) 92 Nasal Cannula 3.00 09/30/20 16:00 102 112/94 (100) 94 Nasal Cannula 3.00 09/30/20 16:00 35.8 09/30/20 15:00 90 21 96/57 (70) Nasal Cannula 3.00 09/30/20 14:49 93 Nasal Cannula 3.00 09/30/20 14:00 99 102/67 (79) Nasal Cannula 3.00 09/30/20 13:00 88 09/30/20 13:00 97 27 109/46 (67) Nasal Cannula 3.00 09/30/20 12:00 87 35 93 Nasal Cannula 3.00 09/30/20 11:12 91 Nasal Cannula 3.00 09/30/20 11:00 80 17 115/58 (77) 92 Nasal Cannula 3.00 09/30/20 10:00 78 18 114/54 (74) 95 Nasal Cannula 3.00 I & O 10/01/20 07:00 Intake Total 1580 ml Output Total 200 ml Balance 1380 ml Height & Weight Height: 5'8.00" Weight: 155lbs. 0.0oz. [id number]; 26.02 BMI Method:Estimated General Appearance: No Apparent Distress, Chronically ill, Other (comfortable on bipap) HEENT: PERRL/EOMI Neck: Full Range of Motion Respiratory: Chest Non Tender, No Accessory Muscle Use, No Respiratory Distress, Decreased Breath Sounds Cardiovascular: Regular Rate, Rhythm, No Edema, No Murmur Capillary Refill: Less Than 3 Seconds Peripheral Pulses: 1+ Dorsalis Pedis (R); 2+ Left Dors-Pedis (L) Gastrointestinal: normal bowel sounds, soft, hernia (larger approx 10 cm v entral hernia) Extremity: Normal Capillary Refill, Normal Inspection Neurologic/Psychiatric: Alert, Oriented x3 Skin: Normal Color, Warm/Dry Results Lab Laboratory Tests 09/29/20 20:35 09/30/20 05:50 10/01/20 02:00 Radiology cxr reviewed Assessment/Plan Assessment/Plan 1. Acute on chronic respiratory failure due to underlying COPD and possibly some diastolic congestive heart failureimproving 2. Severe peripheral arterial disease 3. Gastrointestinal bleeding with severe anemia 4. History of tobacco abuse. 5. non stemi. Recommendation 1. Continue supplemental oxygen with nasal cannula 2. IV Lasix per cardiology 3. Blood transfusion has been done already 4. Protonix IV 5. General surgery consultation. For EGD today 6. We will continue bronchodilators 7. Advised to quit smoking 8. per cardiology no intervention can be done until evaluated for bleeding ulcer. Critical Care: Critically Ill Patient Time spent with patient (mins): 20 Diagnosis/Problems Diagnosis/Problems (1) Acute and chronic respiratory failure (2) Acute blood loss anemia (3) PVD (peripheral vascular disease) (4) Coronary artery disease without angina pectoris (5) Tobacco abuse counseling (6) Tobacco abuse disorder SUZANNE AGUILERA MD Oct 01, 2020 09:44
--- NOTE | 2020-10-01 09:50 | Diagnostic Imaging Report ---
EXAMINATION: CHEST (PA AND LATERAL) CLINICAL INDICATION: 75-year-old female, history of heart failure. Shortness of breath. COMPARISON: September 12, 2020. FINDINGS: Stable overall appearance of the cardiomediastinal silhouette. There is no identified pneumothorax. There is mild blunting of the right posterior costophrenic angle suggesting a small right pleural effusion. There are slightly prominent pulmonary vascular markings which do appear more prominent since the comparison study. IMPRESSION: 1. Mildly prominent pulmonary vascular markings which do appear to be an interval change and likely reflect mild interstitial edema. Atypical infectious etiologies would be the primary consideration. 2. Small right pleural effusion. Dictated by: Dictated on workstation # [id number]
--- NOTE | 2020-10-01 10:04 | Progress Note-Post Operative ---
Post-Operative Progess Note Surgeon (s)/Heavy Forging Machine Operator (s) Surgeon SANDRA WEBB DO Heavy Forging Machine Operator: none Pre-Operative Diagnosis Melena, Anemia, hx of antral ulcer Post-Operative Diagnosis Antral ulcer Severe gastritis Procedure & Operative Findings Date of Procedure 10/01/20 Procedure Performed/Findings PROCEDURE NOTE: After informed consent was obtained, the patient was in her bed in the ICU, placed in bed in left lateral decubitus position. She was administered IV sedation by the DISTRICT CLAIMS MANAGER who then monitored vitals the entire time, heart rate, blood pressure and pulse ox and the scope was inserted down the mouth through the esophagus into the stomach. On the way down, noted some mild esophagitis, took a picture, pushed into the stomach, pushed past the antrum into the duodenum. Duodenum looked good, but there was red blood clot. Pulled back and noted possible antral ulcer, did not see active bleeding but very raw stomach that would easily bleed. No specific ulcer cavity. Flushed with water and still did not see any brisk bleeding. Then retroflexed the scope, saw hiatal hernia and then suctioned all the air out of the stomach. At this point pulled the scope up the esophagus and out the mouth. I elected to not do a biopsy because of her anticoagulation. The patient tolerated the procedure, and she recovered in endoscopy suite. Anesthesia Type IV sedation by DISTRICT CLAIMS MANAGER Estimated Blood Loss Estimated blood loss (mL): scant Specimens/Packing Specimens Removed none SANDRA WEBB DO Oct 01, 2020 10:04
--- NOTE | 2020-10-01 10:28 | Anesthesia-General Post-Op ---
MAC Patient Condition Mental Status/LOC: Same as Preop Cardiovascular: Satisfactory Nausea/Vomiting: Absent Respiratory: Satisfactory Pain: Controlled Complications: Absent Post Op Complications Complications None Follow Up Care/Instructions Patient Instructions None needed. Anesthesiology Discharge Order Discharge Order Patient is doing well, no complaints, stable vital signs, no apparent adverse anesthesia problems. No complications reported per nursing. EMMA CARRINGTON CRNA Oct 01, 2020 10:28
--- NOTE | 2020-10-01 12:59 | Progress Note ---
Subjective HPI/CC On Admission Date Seen by Provider: Oct 01, 2020 Time Seen by Provider: 12:55 Respiratory failure Subjective/Events-last exam Yesterday patient was able to get off of bipap. She has been on her baseline 3 liters nasal cannula. EGD this morning. She feels like her breathing is much improved. She wants to go home. Objective Exam Vital Signs Vital Signs Date Time Temp Pulse Resp B/P (MAP) Pulse Ox O2 Delivery O2 Flow Rate FiO2 10/01/20 12:50 81 10/01/20 12:00 25 120/53 (75) 96 Nasal Cannula 3.00 10/01/20 12:00 36.4 09/30/20 03:46 21 Capillary Refill : Less Than 3 Seconds General Appearance: No Apparent Distress, WD/WN, Chronically ill Respiratory: No Accessory Muscle Use, No Respiratory Distress, Decreased Breath Sounds, Wheezing Cardiovascular: Regular Rate, Rhythm, No Edema, No Murmur Extremity: No Pedal Edema Neurologic/Psychiatric: Alert, Oriented x3 Results/Procedures Lab Laboratory Tests 10/01/20 02:00 Patient resulted labs reviewed. Assessment/Plan Assessment and Plan Assess & Plan/Chief Complaint 1. Acute on chronic respiratory failure- likely due to COPD vs pulmonary edema- Baseline at home is 3 liters. Was on bipap overnight. Respiratory acidosis resolved. Patient breathing comfortably. Will titrate off bipap today. End- stage COPD on oxygen. Will titrate down methylprednisolone to 40 mg from 60 q8h. 2. Pulmonary edema- on chest x-ray. Given IV lasix to help. Diuresing. Cardiology consulted. ECHO in AM. 3. Blood loss anemia- Hemoccult positive stools. Hemoglobin on admission is 5. Now up to 8 and stable after 2 units PRBC's. On IV protonix BID. EGD this morning shows gastritis was bright red clots but no distinct hemorrhage. Plavix held. 4. Chest pain with mildly elevated troponin- Cardiology following. MARI BENSON MD Oct 01, 2020 12:59
[2020-10-01] MEDS: NICOTINE 21 MG (NICODERM) PATCH TD SCH (21:41)
[2020-10-01] MEDS: ALPRAZolam 0.25 MG (XANAX) TAB PO PRN (22:38)
[2020-10-02 00:13] VITALS: BP 117/58
[2020-10-02] MEDS: morphine INJ 4 MG/ML 1 ML (VIAL/SYRINGE) IVP PRN (02:33)
[2020-10-02 04:02] VITALS: BP 106/58
[2020-10-02] MEDS: methylPREDNISolone 40 MG/ML (Solu-MEDROL) VIAL IV SCH ×2 (05:32→13:32)
[2020-10-02 05:33] LABS: BASOPHILS % (AUTO) 0 % (0-10); EOSINOPHILS % (AUTO) 0 % (0-10); HEMATOCRIT 26 % (35-52); HEMOGLOBIN 7.8 g/dL (11.5-16.0); LYMPHOCYTES # (AUTO) 0.4 10^3/uL (1.0-4.0); LYMPHOCYTES % (AUTO) 8 % (12-44); MEAN CORPUSCULAR HEMOGLOBIN 30 pg (25-34); MEAN CORPUSCULAR HGB CONC 30 g/dL (32-36); MEAN CORPUSCULAR VOLUME 99 fL (80-99); MEAN PLATELET VOLUME 9.9 fL (9.0-12.2); MONOCYTES # (AUTO) 0.4 10^3/uL (0.0-1.0); MONOCYTES % (AUTO) 8 % (0-12); NEUTROPHILS # (AUTO) 4.2 10^3/uL (1.8-7.8); NEUTROPHILS % (AUTO) 83 % (42-75); PLATELET COUNT 244 10^3/uL (130-400); WHITE BLOOD COUNT 5.1 10^3/uL (4.3-11.0)
[2020-10-02 05:56] LABS: ALBUMIN 3.4 GM/DL (3.2-4.5); CHLORIDE 105 MMOL/L (98-107); POTASSIUM 4.2 MMOL/L (3.6-5.0); SODIUM 141 MMOL/L (135-145)
[2020-10-02 05:58] LABS: CALCIUM 8.6 MG/DL (8.5-10.1)
[2020-10-02 05:59] LABS: GLUCOSE 117 MG/DL (70-105); TOTAL PROTEIN 5.8 GM/DL (6.4-8.2)
[2020-10-02 06:00] LABS: CARBON DIOXIDE 26 MMOL/L (21-32)
[2020-10-02 06:01] LABS: BILIRUBIN,TOTAL 0.3 MG/DL (0.1-1.0)
[2020-10-02 06:02] LABS: ALKALINE PHOSPHATASE 63 U/L (40-136); CREATININE SERUM 0.89 MG/DL (0.60-1.30); GFR ESTIMATED > 60
[2020-10-02 06:03] LABS: BUN/CREATININE RATIO 30
[2020-10-02 06:05] LABS: ALANINE AMINOTRANSFERASE 33 U/L (0-55)
[2020-10-02] MEDS: RT-ALBUTEROL/IPRATROPIUM 3 ML (DUONEB) VIAL INH SCH ×3 (06:56→14:58)
[2020-10-02 08:00] VITALS: BP 146/70
--- NOTE | 2020-10-02 08:12 | Progress Note - Surgery ---
NEENA ANNA MED STUDENT 10/02/20 0812: Subjective Date Seen by a Provider: Oct 02, 2020 Time Seen by a Provider: 07:25 Subjective/Events-last exam 75 year old female s/p EGD for melena and anemia. She appears comfortable sitting up in bed in no distress on 3L by NC. She is coughing when I entered the room. She states this is her "normal cough". She tells me she is doing "fine" and is "ready to go home". She denies any gerd like symptoms, nausea, vomiting, changes in urinary habits, or bowel movements. She denies having blood in stool, but says "it is always drak because I take iron pills". She is tolerating her diet. She talked to me about her understanding that she needs to take her protonix as prescribed and not just when she needs it. Review of Systems General: No Chills, No Night Sweats HEENT: No Head Aches, No Visual Changes Pulmonary: No Dyspnea; Cough Cardiovascular: No: Chest Pain, Palpitations Gastrointestinal: Abdominal Pain (hernia when she coughs); No: Nausea, Vomiting Genitourinary: No Dysuria, No Hematuria Musculoskeletal: No: other (myalgias/arhtralgias) Neurological: No: Change in speech, Confusion Objective Exam Vital Signs Date Time Temp Pulse Resp B/P (MAP) Pulse Ox O2 Delivery O2 Flow Rate FiO2 10/02/20 06:56 99 Nasal Cannula 3.00 10/02/20 04:02 36.8 69 16 106/58 (74) 99 Nasal Cannula 3.00 10/02/20 00:13 36.6 79 18 117/58 (77) 98 Nasal Cannula 3.00 10/01/20 20:17 98 Nasal Cannula 3.00 10/01/20 20:00 35.6 89 20 114/53 (73) 98 Nasal Cannula 5.00 10/01/20 18:29 94 Nasal Cannula 3.00 10/01/20 17:56 37.0 85 18 106/54 (71) 99 Nasal Cannula 3.00 10/01/20 16:00 37.0 97 18 94/63 (73) 95 Nasal Cannula 3.00 10/01/20 14:36 95 Nasal Cannula 3.00 10/01/20 13:54 Nasal Cannula 3.00 10/01/20 13:00 74 15 135/64 (87) 96 Nasal Cannula 3.00 10/01/20 12:50 81 10/01/20 12:00 83 25 120/53 (75) 96 Nasal Cannula 3.00 10/01/20 12:00 36.4 10/01/20 10:51 92 Nasal Cannula 6.00 I & O 10/02/20 07:00 Intake Total 1890 ml Output Total 300 ml Balance 1590 ml Capillary Refill : Less Than 3 Seconds General Appearance: No Apparent Distress, Chronically ill Neck: Supple Respiratory: No Accessory Muscle Use, No Respiratory Distress, Wheezing (expiratory, more pronounced on right) Cardiovascular: Regular Rate, Rhythm, No Edema, No Murmur Gastrointestinal: normal bowel sounds, soft, hernia (larger approx 10 cm ventral hernia) Extremity: No Pedal Edema; No Pedal Edema Neurologic/Psychiatric: Alert, Oriented x3 Skin: Normal Color, Warm/Dry Results Lab Laboratory Tests 10/01/20 12:00: Troponin I 0.370*H 10/02/20 05:22: White Blood Count 5.1, Red Blood Count 2.61L, Hemoglobin 7.8L, Hematocrit 26L, Mean Corpuscular Volume 99, Mean Corpuscular Hemoglobin 30, Mean Corpuscular Hemoglobin Concent 30L, Red Cell Distribution Width 15.4H, Platelet Count 244, Mean Platelet Volume 9.9, Immature Granulocyte % (Auto) 0, Neutrophils (%) (Auto) 83H, Lymphocytes (%) (Auto) 8L, Monocytes (%) (Auto) 8, Eosinophils (%) (Auto) 0, Basophils (%) (Auto) 0, Neutrophils # (Auto) 4.2, Lymphocytes # (Auto) 0.4L, Monocytes # (Auto) 0.4, Eosinophils # (Auto) 0.0, Basophils # (Auto) 0.0, Immature Granulocyte # (Auto) 0.0, Sodium Level 141, Potassium Level 4.2, Chloride Level 105, Carbon Dioxide Level 26, Anion Gap 10, Blood Urea Nitrogen 27H, Creatinine 0.89, Estimat Glomerular Filtration Rate > 60, BUN/Creatinine Ratio 30, Glucose Level 117H, Calcium Level 8.6, Corrected Calcium 9.1, Total Bilirubin 0.3, Aspartate Amino Transf (AST/SGOT) 31, Alanine Aminotransferase (ALT/SGPT) 33, Alkaline Phosphatase 63, Total Protein 5.8L, Albumin 3.4 Assessment/Plan Assessment/Plan Assessment/Plan Anemia History of stomach ulcer History of rectal bleed S/P arterial bypass left leg tobacco abuse NSAID use s/p EGD Patient hemoglobin has increased with transfusions and continues to be stable, still having some melena. EGD performed yesterday, no intervention performed at the time, stomach was noticed to have a few focal points of mild bleeding, but no intervention was indicated at the time, continue GI prophylaxis as prescribed, stop NSAID use, smoking cessation highly recommended. At this point time patient is stable from a surgical standpoint. WILFRID LONG DO 10/02/20 1601: Subjective Time Seen by a Provider: 12:31 Subjective/Events-last exam Pt seen and examined, sitting on side of bed; states she is ready to go home. Review of Systems General: No Chills, No Night Sweats; Fatigue Pulmonary: No Dyspnea; Cough Cardiovascular: No: Chest Pain, Palpitations Gastrointestinal: Abdominal Pain (hernia when she coughs); No: Nausea, Vomiting Objective Exam General Appearance: Chronically ill Respiratory: No Accessory Muscle Use, No Respiratory Distress, Wheezing (expiratory, more pronounced on right) Cardiovascular: Regular Rate, Rhythm, No Murmur Gastrointestinal: normal bowel sounds, soft, hernia (larger approx 10 cm ventral hernia) Assessment/Plan Assessment/Plan Assessment/Plan Anemia History of stomach ulcer History of rectal bleed S/P arterial bypass left leg tobacco abuse NSAID use s/p EGD Patient hemoglobin has increased with transfusions and continues to be stable, still having some melena. EGD performed yesterday, no intervention performed at the time, stomach was noticed to have a few focal points of mild bleeding, but no intervention was indicated at the time, continue GI prophylaxis as prescribed, stop NSAID use, smoking cessation highly recommended. At this point time patient is stable from a surgical standpoint. Supervisory-Addendum Brief Verification & Attestation Participated in pt care: history, MDM, physical Personally performed: exam, history, MDM, supervision of care Care discussed with: Medical Student Procedures: n/a Verification and Attestation of Medical Student E/M Service A medical student performed and documented this service. I then reviewed and verified all information documented by the medical student and made mod ifications to such information, when appropriate. I personally performed a physical exam, medical decision making and then discussed any differences between the notes and made revisions as necessary to create one note. Wilfrid Long , 10/02/20 , 16:01 NEENA ANNA MED STUDENT Oct 02, 2020 08:12 WILFRID LONG DO Oct 02, 2020 16:01
[2020-10-02] MEDS ORDERED: NICOTINE PATCH REMOVAL TP SCH (09:00)
[2020-10-02] MEDS: NICOTINE 21 MG (NICODERM) PATCH TD SCH (09:34)
[2020-10-02] MEDS: PANTOPRAZOLE 40 MG (PROTONIX) VIAL IV SCH (09:34)
[2020-10-02] MEDS: FUROSEMIDE 40 MG (LASIX) TAB PO SCH (09:34)
[2020-10-02] MEDS ORDERED: ATOR80TA76 PO (09:35)
[2020-10-02] MEDS ORDERED: FERR-84 PO (09:35)
[2020-10-02] MEDS ORDERED: FLUT1BLS15 INH (09:35)
[2020-10-02] MEDS ORDERED: CLOP75TA28 PO (09:35)
[2020-10-02] MEDS ORDERED: LATA7.5D OU (09:35)
[2020-10-02] MEDS ORDERED: ASPI-1238 PO (09:35)
[2020-10-02] MEDS ORDERED: BACL10TA PO (09:35)
[2020-10-02 12:00] VITALS: BP 130/66
[2020-10-02] MEDS: ALPRAZolam 0.25 MG (XANAX) TAB PO PRN (13:32)
[2020-10-02 15:30] VITALS: BP 128/56
--- NOTE | 2020-10-02 18:04 | Discharge Summary ---
Diagnosis/Chief Complaint Date of Admission Sep 29, 2020 at 21:34 Date of Discharge Oct 02, 2020 at 15:50 Discharge Date: Oct 02, 2020 Discharge Time: 08:45 Discharge Diagnosis 1. Acute on Chronic Respiratory Failure--Improved 2. Acute Pulmonary Edema/Acute Diastolic Dysfunction--improved 3. Acute Blood Loss Anemia--S/P tranfusion 4. Acute Upper GI Bleed--on protonix 5. History of CAD with elevated Troponin-I--no further chest pain 6. Oxygen Dependant COPD--ongoing tobacco abuse Discharge Summary Hospital Course Was the Problem List Reviewed?: Yes Hospital Course This is a 75 year old female initially admitted with acute on chronic respiratory failure. She placed on BIPAP overnight and then was weaned back to her normal oxygen via nasal cannula. She did have pulmonary edema with elevated BNP on admit consistent with acute diastolic dysfunction--she was diuresed with lasix. Her troponin-I was also elevated on admit and trended up until the day prior to discharge. Her plavix and aspirin were held due to acute blood loss anemia with a hemoglobin of 5,8 on admission. The patient underwent a recent procedure for PAD and was started on plavix and aspirin. She has a previous history of upper GI bleed and was on protonix but admits she has not been taking that routinely. She was placed on IV protonix. She was given 2 units of blood. She underwent an EGD which showed active erythema and bleeding. Her hemoglobin remained stable post-transfusion and was at 7.8 on the morning of discharge. Cardiology was monitoring her Troponin and hemoglobin to assess ability to restart her plavix and aspirin but the patient left AMA. Labs Laboratory Tests 09/29/20 20:35: Red Blood Count 1.95L, Hemoglobin 5.8*L, Hematocrit 20*L, Mean Corpuscular Volume 102H, Mean Corpuscular Hemoglobin Concent 29L, Red Cell Distribution Width 16.2H, Arterial Blood pH 7.25*L, Arterial Blood Partial Pressure CO2 53H, Arterial Blood Partial Pressure O2 47L, Arterial Blood Oxygen Saturation 73L, Arterial Blood Base Excess -3.5L, Chloride Level 110H, Carbon Dioxide Level 20L, Blood Urea Nitrogen 28H, Creatinine 1.45H, Glucose Level 145H, Calcium Level 8.2L, B-Type Natriuretic Peptide 731.8H, Total Protein 5.8L 09/30/20 05:05: Arterial Blood pH 7.35L, Arterial Blood Partial Pressure O2 43L, Arterial Blood Oxygen Saturation 73L 09/30/20 05:50: Red Blood Count 2.74L, Hemoglobin 8.2#L, Hematocrit 27L, Mean Corpuscular Hemoglobin Concent 30L, Red Cell Distribution Width 15.9H, Chloride Level 109H, Blood Urea Nitrogen 27H, Glucose Level 172H, White Blood Count 4.1L, Neutrophils (%) (Auto) 87H, Lymphocytes (%) (Auto) 11L, Lymphocytes # (Auto) 0.4L 09/30/20 10:00: 10/01/20 02:00: Red Blood Count 2.54L, Hemoglobin 7.6L, Hematocrit 26L, Mean Corpuscular Volume 100H, Mean Corpuscular Hemoglobin Concent 30L, Red Cell Distribution Width 16.1H , Neutrophils (%) (Auto) 90H, Lymphocytes (%) (Auto) 4L, Lymphocytes # (Auto) 0.3L, Blood Urea Nitrogen 29H, Glucose Level 139H, Calcium Level 8.4L, Aspartate Amino Transf (AST/SGOT) 35H, Troponin I 0.392*H, Total Protein 5.8L 10/01/20 05:52: Troponin I 0.474*H 10/01/20 12:00: Troponin I 0.370*H 10/02/20 05:22: Red Blood Count 2.61L, Hemoglobin 7.8L, Hematocrit 26L, Mean Corpuscular Hemoglobin Concent 30L, Red Cell Distribution Width 15.4H, Neutrophils (%) (Auto) 83H, Lymphocytes (%) (Auto) 8L, Lymphocytes # (Auto) 0.4L, Blood Urea Nitrogen 27H, Glucose Level 117H, Total Protein 5.8L 10/02/20 13:18: Procedures None. Discharge Physical Examination Allergies: Coded Allergies: Penicillins (Verified Allergy, Unknown, PT HAS RECEIVED ANCEF WITHOUT ISSUE, 05/30/14) meperidine (Verified Allergy, Unknown, 05/30/14) Vitals & I&Os Vital Signs Date Time Temp Pulse Resp B/P (MAP) Pulse Ox O2 Delivery O2 Flow Rate FiO2 10/02/20 16:18 10/02/20 15:30 36.6 90 22 90 Room Air 10/02/20 14:58 3.00 09/30/20 03:46 21 General Appearance: Alert, Oriented X3, No Acute Distress Respiratory: Other (bilateral rhonchi) Cardiovascular: Regular Rate Extremities: No Clubbing, No Cyanosis, No Edema Psych/Mental Status: Mental Status NL Discharge Home Medications Reviewed and agree with Discharge Medication list on patient's Discharge Instruction sheet Instructions to Patient/Family Please see electronic discharge instructions given to patient. KELSIE PEARSON DO Oct 02, 2020 18:04
== END 2020-10-02 15:50 | disposition left against medical advice (07) | DRG 280 ==
LOC: EDUNIT# 20:28 → ER 20:29 → CSD 21:34 → ICU 21:34 → UNDOADMIN 21:34 → 4TH 10-01 17:46
PROVIDERS: ADMIT Family Medicine; ATTEND Family Medicine
PROC: 5A09357 Assistance with Respiratory Ventilation, Less than 24 Consecutive Hours, Continuous Positive Airway Pressure (ICD-10-PCS; 2020-09-30)
PROC: 0DJ08ZZ Inspection of Upper Intestinal Tract, Via Natural or Artificial Opening Endoscopic (ICD-10-PCS; principal; 2020-10-01 09:45)
DX: I13.0 Hypertensive heart and chronic kidney disease with heart failure and stage 1 through stage 4 chronic kidney disease, or unspecified chronic kidney disease (principal); I50.33 Acute on chronic diastolic (congestive) heart failure; I21.4 Non-ST elevation (NSTEMI) myocardial infarction; J96.20 Acute and chronic respiratory failure, unspecified whether with hypoxia or hypercapnia; K29.01 Acute gastritis with bleeding; K25.4 Chronic or unspecified gastric ulcer with hemorrhage; N17.9 Acute kidney failure, unspecified; J44.1 Chronic obstructive pulmonary disease with (acute) exacerbation; D62 Acute posthemorrhagic anemia; I69.354 Hemiplegia and hemiparesis following cerebral infarction affecting left non-dominant side; Z66 Do not resuscitate; Z20.822 Contact with and (suspected) exposure to COVID-19; F17.210 Nicotine dependence, cigarettes, uncomplicated; N18.30 Chronic kidney disease, stage 3 unspecified; E78.00 Pure hypercholesterolemia, unspecified; E78.2 Mixed hyperlipidemia; I25.110 Atherosclerotic heart disease of native coronary artery with unstable angina pectoris; I65.23 Occlusion and stenosis of bilateral carotid arteries; G40.909 Epilepsy, unspecified, not intractable, without status epilepticus; K21.9 Gastro-esophageal reflux disease without esophagitis; M19.91 Primary osteoarthritis, unspecified site; M79.7 Fibromyalgia; F41.9 Anxiety disorder, unspecified; I73.9 Peripheral vascular disease, unspecified; I35.0 Nonrheumatic aortic (valve) stenosis; H40.9 Unspecified glaucoma; Z99.81 Dependence on supplemental oxygen; Z95.820 Peripheral vascular angioplasty status with implants and grafts; Z95.5 Presence of coronary angioplasty implant and graft; Z79.1 Long term (current) use of non-steroidal anti-inflammatories (NSAID); Z88.6 Allergy status to analgesic agent; Z88.0 Allergy status to penicillin; Z82.49 Family history of ischemic heart disease and other diseases of the circulatory system
CPT/HCPCS: 36415; 71045; 71046; 80048; 80053; 80061; 82805; 83880; 84145; 84484; 85007; 85025; 85027; 86850; 86900; 86901; 86920; 87636; 93005; 93306; 94640; 94660; 94760

== ENCOUNTER → 2020-10-09 | Outpatient (CLI) | payer MEDICARE, MEDICAID ==
[~2020-10-09] MED LIST changes: +FERR-84 PO; +FLUT1BLS15 INH; +LATA7.5D OU
[2020-10-09 15:23] LABS: BASOPHILS % (AUTO) 1 % (0-10); EOSINOPHILS # (AUTO) 0.2 10^3/uL (0.0-0.3); EOSINOPHILS % (AUTO) 5 % (0-10); HEMATOCRIT 26 % (35-52); HEMOGLOBIN 7.9 g/dL (11.5-16.0); LYMPHOCYTES # (AUTO) 0.7 X 10^3 (1.0-4.0); LYMPHOCYTES % (AUTO) 21 % (12-44); MEAN CORPUSCULAR HEMOGLOBIN 30 pg (25-34); MEAN CORPUSCULAR HGB CONC 30 g/dL (32-36); MEAN CORPUSCULAR VOLUME 98 fL (80-99); MEAN PLATELET VOLUME 9.3 fL (9.0-12.2); MONOCYTES # (AUTO) 0.5 X 10^3 (0.0-1.0); MONOCYTES % (AUTO) 15 % (0-12); NEUTROPHILS # (AUTO) 1.9 X 10^3 (1.8-7.8); NEUTROPHILS % (AUTO) 58 % (42-75); PLATELET COUNT 223 10^3/uL (130-400); WHITE BLOOD COUNT 3.2 10^3/uL (4.3-11.0)
--- NOTE | 2020-10-09 15:44 | Diagnostic Imaging Report ---
PROCEDURE: US right lower extremity venous. TECHNIQUE: Multiple real-time grayscale images were obtained over the right lower extremity in various projections. Additional spectral analysis and color Doppler duplex images were also obtained. INDICATION: Right lower extremity pain and swelling. EXAMINATION: Grayscale and color Doppler evaluation of the deep veins of the right lower extremity were performed with waveform analysis. FINDINGS: Continuous venous flow is present. No intraluminal filling defect is identified. There is normal compressibility and response to augmentation. No abnormal perivascular fluid collection is identified. There is apparent stent within the right common femoral artery. IMPRESSION: No ultrasound evidence of right lower extremity deep venous thrombosis. Dictated by: Dictated on workstation # [id number]
== END ==
LOC: RAD 15:30
PROVIDERS: ATTEND Family Medicine
DX: R60.0 Localized edema (principal); M79.661 Pain in right lower leg; D64.9 Anemia, unspecified; R53.83 Other fatigue
CPT/HCPCS: 36415; 85025

== ENCOUNTER → 2020-10-10 | Outpatient (CLI) | payer MEDICARE, MEDICAID ==
--- NOTE | 2020-10-10 08:38 | Diagnostic Imaging Report ---
EXAMINATION: CT head without contrast. TECHNIQUE: Multiple contiguous axial images were obtained through the brain without the use of intravenous contrast. All CT scans use one or more of the following dose optimizing techniques: automated exposure control, MA and/or KvP adjustment based on patient size and exam type or iterative reconstruction. HISTORY: Falls and hallucinations COMPARISON: 12/27/2019 FINDINGS: Periventricular white matter hypoattenuation is in keeping with chronic small vessel ischemic changes. There are lacunar infarcts in both basal ganglia. No mass effect or midline shift. There is age related cerebral atrophy with ex vacuo dilation of the ventricles. Basilar cisterns are patent. There are no intra- or extra-axial fluid collections. There is no intracranial hemorrhage. The orbits are normal. Paranasal sinuses are normal. Mastoid air cells are clear. No soft tissue abnormality is seen. No osseus lesions or fractures are seen. IMPRESSION: 1. No acute intracranial abnormality. Dictated by: Dictated on workstation # [id number]
== END ==
LOC: RAD 07:45
PROVIDERS: ATTEND Family Medicine
DX: R44.3 Hallucinations, unspecified (principal); W19.XXXA Unspecified fall, initial encounter
CPT/HCPCS: 70450

== ENCOUNTER → 2020-10-17 | Outpatient (CLI) | payer MEDICARE, MEDICAID ==
--- NOTE | 2020-10-17 14:43 | Diagnostic Imaging Report ---
INDICATION: Right lower lobe lung mass. TECHNIQUE: Serum blood glucose level at the time of injection is 114 mg/dL. Patient was administered 13.8 mCi F-18 FDG intravenously in the right arm and PET imaging was performed from the top of the skull to mid thighs. Noncontrast CT was also performed for attenuation correction and anatomic correlation. COMPARISON: Correlation is made with prior PET/CT study from 12/21/2019. FINDINGS: There appears to be symmetric activity throughout the brain. Soft tissues of the neck are unremarkable. There continues to be low-level activity within the previously noted right lower lobe pulmonary nodule with an SUV max of 2.3. Overall size is very similar. No new regions of hypermetabolism are identified. Lili are unremarkable. Physiologic activity throughout the GI AND tracts of the abdomen and pelvis are noted. Large ventral hernia containing portions of the transverse colon is again noted. There is infrarenal abdominal aortic aneurysm with AP dimension of 3.6 cm. No other significant abnormality is seen. IMPRESSION: Stable PET/CT study with low-level activity within previously noted right lower lobe pulmonary nodule. Continued follow-up is recommended. Dictated by: Dictated on workstation # [id number]
== END ==
LOC: RAD 09:00
PROVIDERS: ATTEND Family Medicine
DX: R91.8 Other nonspecific abnormal finding of lung field (principal); R06.00 Dyspnea, unspecified
CPT/HCPCS: 78815; A9552

== ENCOUNTER 2020-10-26 10:33 | Outpatient (RCR) | payer MEDICARE, MEDICAID ==
[2020-10-19 13:00] VITALS: BP 139/58
[2020-10-19] MEDS: FERRIC CARBOXYMALTOSE INJ 750 MG in NS (IVPB) 250 ML IV SCH (13:18)
[~2020-10-26] VITALS: Ht 172.7 cm; Wt 68.1 kg
[2020-10-26] MEDS: FERRIC CARBOXYMALTOSE INJ 750 MG in NS (IVPB) 250 ML IV SCH (11:07)
[2020-10-26 11:30] VITALS: BP 132/58
== END 2020-10-26 11:40 | disposition home or self-care (01) ==
LOC: SDC 10:33
PROVIDERS: ATTEND Family Medicine
DX: D64.9 Anemia, unspecified (principal)
CPT/HCPCS: 96365

== ENCOUNTER → 2020-10-26 | Outpatient (CLI) | payer MEDICARE, MEDICAID ==
[2020-10-26 13:15] LABS: BASOPHILS % (AUTO) 1 % (0-10); EOSINOPHILS # (AUTO) 0.4 10^3/uL (0.0-0.3); EOSINOPHILS % (AUTO) 9 % (0-10); HEMATOCRIT 29 % (35-52); HEMOGLOBIN 8.6 g/dL (11.5-16.0); LYMPHOCYTES # (AUTO) 0.9 10^3/uL (1.0-4.0); LYMPHOCYTES % (AUTO) 22 % (12-44); MEAN CORPUSCULAR HEMOGLOBIN 28 pg (25-34); MEAN CORPUSCULAR HGB CONC 30 g/dL (32-36); MEAN CORPUSCULAR VOLUME 96 fL (80-99); MEAN PLATELET VOLUME 9.5 fL (9.0-12.2); MONOCYTES # (AUTO) 0.5 10^3/uL (0.0-1.0); MONOCYTES % (AUTO) 11 % (0-12); NEUTROPHILS # (AUTO) 2.5 10^3/uL (1.8-7.8); NEUTROPHILS % (AUTO) 58 % (42-75); PLATELET COUNT 249 10^3/uL (130-400); WHITE BLOOD COUNT 4.3 10^3/uL (4.3-11.0)
[2020-10-26 13:48] LABS: ALBUMIN 3.2 GM/DL (3.2-4.5); BILIRUBIN,TOTAL 0.2 MG/DL (0.1-1.0); CALCIUM 9.1 MG/DL (8.5-10.1); CREATININE SERUM 1.32 MG/DL (0.60-1.30); POTASSIUM 4.7 MMOL/L (3.6-5.0); TOTAL PROTEIN 6.2 GM/DL (6.4-8.2)
== END ==
LOC: ONC 13:01
PROVIDERS: ATTEND Internal Medicine Hematology & Oncology
DX: I25.10 Atherosclerotic heart disease of native coronary artery without angina pectoris (principal); I12.9 Hypertensive chronic kidney disease with stage 1 through stage 4 chronic kidney disease, or unspecified chronic kidney disease; N18.9 Chronic kidney disease, unspecified; D64.9 Anemia, unspecified; I73.9 Peripheral vascular disease, unspecified; I63.89 Other cerebral infarction; I65.29 Occlusion and stenosis of unspecified carotid artery; E78.2 Mixed hyperlipidemia
CPT/HCPCS: 80053; 85025; G0463; 99213

== ENCOUNTER → 2021-01-18 | Outpatient (CLI) | payer MEDICARE, MEDICAID ==
--- NOTE | 2021-01-18 16:31 | Diagnostic Imaging Report ---
INDICATION: Cough, shortness of breath. COMPARISON: 10/01/2020. TECHNIQUE: Two radiographs of the chest dated January 18, 2021. FINDINGS: Surgical clips/fiducial markers are again noted overlying the right upper lung. The cardiac silhouette is within normal limits in size. Increased fullness within the right hilar region. 3.3 cm irregular nodular density overlying the right midlung is present. Mild background emphysematous changes are again seen with associated mild pulmonary hyperinflation. No new focal pulmonary opacity. No pleural effusion. No pneumothorax. Stable severe compression deformity within the lower thoracic spine with additional mild stable vertebral body height loss within the lower thoracic spine. No acute osseous abnormality. IMPRESSION: 1. Focal irregular nodular density within the right midlung remains concerning for neoplasm. This is better demonstrated on prior CT. Per prior PET/CT, continued CT follow-up is recommended. 2. Increasing fullness within the right hilar region. This could relate to developing adenopathy. This region can also be evaluated on nonemergent follow-up CT of the chest. 3. Mild background emphysematous changes. 4. Stable compression deformities within the thoracic spine. Dictated by: Dictated on workstation # [id number]
== END ==
LOC: RAD 15:41
PROVIDERS: ATTEND Physician Assistant
DX: J98.4 Other disorders of lung (principal); J43.9 Emphysema, unspecified; M43.8X2 Other specified deforming dorsopathies, cervical region; I10 Essential (primary) hypertension; F32.9 Major depressive disorder, single episode, unspecified; I63.89 Other cerebral infarction; E78.00 Pure hypercholesterolemia, unspecified
CPT/HCPCS: 71046

== ENCOUNTER → 2021-04-02 | Outpatient (CLI) | payer MEDICARE, MEDICAID ==
[~2021-04-02] MED LIST changes: -LEVO500T80 PO; +LEVO500T81 PO; -POTA10TA36 PO; +POTA10TA37 PO
--- NOTE | 2021-04-02 16:18 | Diagnostic Imaging Report ---
INDICATION: Cough. TECHNIQUE/COMPARISON: PA and lateral views of the chest were obtained with comparison made to the study of 01/18/2021. FINDINGS: The overall heart size is at the upper limits of normal. The right suprahilar density reported on the previous study is again identified and there is continued fullness in the right hilum. No pneumothorax or definite pleural fluid is seen. IMPRESSION: Continued right perihilar density and right hilar fullness. This likely is related to infiltrate although underlying mass with adenopathy cannot be excluded. Otherwise, no new abnormality is identified. Dictated by: Dictated on workstation # [id number]
== END ==
LOC: RAD 15:26
PROVIDERS: ATTEND Family Medicine
DX: J98.4 Other disorders of lung (principal); J44.9 Chronic obstructive pulmonary disease, unspecified
CPT/HCPCS: 71046

== ENCOUNTER → 2021-04-11 | Outpatient (CLI) | payer MEDICARE, MEDICAID ==
--- NOTE | 2021-04-11 12:34 | Diagnostic Imaging Report ---
PROCEDURE: CT chest without contrast. TECHNIQUE: Multiple contiguous axial images were obtained through the chest without the use of intravenous contrast. Auto Exposure Controls were utilized during the CT exam to meet ALARA standards for radiation dose reduction. INDICATION: Right lower lobe pulmonary mass, follow-up. CORRELATION STUDY: 09/14/2020, 12/09/2019 FINDINGS: Spiculated mass superior segment right lower lobe again demonstrated currently approximately 3.0 x 1.9 x 1.8 cm. (Previously 2.0 x 1.6 x 2.1 cm). Slight increasing of peribronchial soft tissue density extending into the left hilum as well. Evaluation of hilar structures is limited, there does appear to be enlarged right infrahilar lymphadenopathy measuring 2.0 x 1.5 cm. Findings are superimposed on advanced emphysematous change about the lung parenchyma. Evaluation mediastinal structures limited with absence of contrast. There are prominent mediastinal lymph nodes present. Largest in the precarinal region measures up to 11 mm (previously 8 mm). Heart size upper limits normal with trace pericardial effusion. Prominent coronary artery calcification. Extensive calcification of thoracic aorta, otherwise normal in contour. Visualized portion upper abdomen demonstrate a prominent calcification visualized abdominal aorta which does appear to be prominent, measuring up to at least 3.3 cm. Partial mineralization of a left of midline upper abdominal hernia defect. There is presence of vascular stent over the right chest, originating at the right axilla extending to the right abdomen. Marked compression deformity, vertebral plana at T12 level, unchanged. There is also moderate compression deformity T9 level. While present prior has probable subacute features. IMPRESSION: 1. Right lower lobe mass, highly worrisome for primary lung neoplasm appears slightly progressed in size. Also appears to be increase in soft tissue density in the bronchovascular structures extending into the right hilum. Suspect for enlarged right hilar lymphadenopathy. 2. Generally stable appearance of a thoracic spine compression deformities. Dictated by: Dictated on workstation # [id number]
== END ==
LOC: RAD 11:45
PROVIDERS: ATTEND Family Medicine
DX: J98.4 Other disorders of lung (principal); R91.8 Other nonspecific abnormal finding of lung field; M43.8X4 Other specified deforming dorsopathies, thoracic region
CPT/HCPCS: 71250

== ENCOUNTER 2021-04-25 18:05 | Emergency (ER) | payer MEDICARE, MEDICAID ==
[~2021-04-25] VITALS: Ht 172.7 cm; Wt 61.7 kg
[2021-04-25 18:45] LABS: ABG BASE EXCESS 1.9 MMOL/L (-2.5-2.5); ABG OXYGEN SATURATION 89 % (94-100); ABG PCO2 46 MMHG (35-45); ABG PH 7.37 (7.37-7.43); ABG PO2 56 MMHG (79-93); ABG TCO2 28.1 MMOL/L (21.0-31.0)
--- NOTE | 2021-04-25 18:45 | ED General ---
General Chief Complaint: General Problems/Pain Stated Complaint: WEAKNESS Nursing Triage Note: PT TO ROOM 08 VIA EMS WITH C/O GENERAL WEAKNESS. Source of Information: Patient Exam Limitations: No Limitations (MAHAMED COBOS APRN) History of Present Illness Date Seen by Provider: Apr 25, 2021 Time Seen by Provider: 18:41 Initial Comments To ER by [facility] from home after ambulance was called by family with reports of general weakness and somnolence for a few days. She is a chain smoker but has only smoked 2 cigarettes today which is abnormal for her. Timing/Duration: 2-3 Days Severity: Moderate Associated Systoms: Denies Symptoms (MAHAMED COBOS APRN) Allergies and Home Medications Allergies Coded Allergies: Penicillins (Verified Allergy, Unknown, PT HAS RECEIVED ANCEF WITHOUT ISSUE, 05/30/14) meperidine (Verified Allergy, Unknown, 05/30/14) Patient Home Medication List Home Medication List Reviewed: Yes (MAHAMED COBOS APRN) Acetaminophen (Tylenol Extra Strength) 500 Mg Tablet, 1,000 MG PO Q4H PRN for PAIN-MILD, (Reported) Entered as Reported by: BARRON ASCENCIO on 01/01/19 1321 Albuterol Sulfate (Proair Hfa) 1 Puff Puff, 2 PUFF IH Q4H PRN for SHORTNESS OF BREATH, (Reported) Entered as Reported by: BARRON ASCENCIO on 01/01/19 1331 Aspirin (Aspirin EC) 81 Mg Tablet.dr, 81 MG PO HS, (Reported) Entered as Reported by: FEROZ HONG on 10/02/20 0935 Atorvastatin Calcium (Atorvastatin Calcium) 80 Mg Tablet, 80 MG PO HS, (Reported) Entered as Reported by: FEROZ HONG on 10/02/20 0935 Baclofen (Baclofen) 10 Mg Tablet, 10 MG PO BID PRN for MUSCLE SPASMS, (Reported) Entered as Reported by: FEROZ HONG on 10/02/20 09 Buspirone HCl (Buspirone HCl) 5 Mg Tablet, 5 MG PO BID, (Reported) Entered as Reported by: BARRON ASCENCIO on 01/01/19 1159 Clopidogrel Bisulfate (Clopidogrel) 75 Mg Tablet, 75 MG PO DAILY, (Reported) Entered as Reported by: FEROZ HONG on 10/02/20 0935 Divalproex Sodium (Divalproex Sodium) 250 Mg Tablet.dr, 250 MG PO HS, (Reported) Entered as Reported by: CHETAN CHAPMAN on 02/01/16 0812 Docusate Sodium (Colace) 100 Mg Capsule, 100 MG PO BID, (Reported) Entered as Reported by: BARRON ASCENCIO on 01/01/19 1321 Ferrous Sulfate (Iron) 325 Mg Tablet, 325 MG PO HS, (Reported) Entered as Reported by: FEROZ HONG on 10/02/20 0935 Fluticasone/Umeclidin/Vilanter (Trelegy Ellipta 200-62.5-25) 1 Each Blst.w.dev, 1 PUFF INH BID, (Reported) Entered as Reported by: FEROZ HONG on 10/02/20 0935 Furosemide (Furosemide) 40 Mg Tablet, 40 MG PO DAILY, (Reported) Entered as Reported by: BARRON ASCENCIO on 12/26/16 1454 Gabapentin (Neurontin) 300 Mg Capsule, 300 MG PO BID, (Reported) Entered as Reported by: ADAM TORRES on 06/28/20 0822 Latanoprost/Pf (Latanoprost 0.005% Eye Drop) 7.5 Ml Drops, 1 DROP OU HS, (Reported) Entered as Reported by: FEROZ HONG on 10/02/20 0935 Multivits-Min/Iron/FA/Lutein (Centrum Silver Women Tablet) 1 Each Tablet, 1 EACH PO DAILY, (Reported) Entered as Reported by: ADAM TORRES on 06/28/20 0822 Nebivolol HCl (Bystolic) 5 Mg Tablet, 5 MG PO HS, (Reported) Entered as Reported by: EZEKIEL ORTIZ on 11/17/17 0824 Pantoprazole Sodium (Pantoprazole Sodium) 40 Mg Tablet.dr, 40 MG PO BID, (Reported) Entered as Reported by: BARRON ASCENCIO on 12/26/16 1454 Polyethylene Glycol 3350 (Miralax) 17 Gm Powd.pack, 17 GM PO DAILY PRN for CON STIPATION-2ND LINE, (Reported) Entered as Reported by: ADAM TORRES on 06/28/20 08 Potassium Chloride (Potassium Chloride) 10 Meq Capsule.er, 10 MEQ PO DAILY, (Reported) Entered as Reported by: BARRON ASCENCIO on 01/01/19 1159 Sertraline HCl (Sertraline HCl) 100 Mg Tablet, 100 MG PO BID, (Reported) Entered as Reported by: ELIANA TYSON on 04/20/20 0990 Review of Systems Review of Systems Constitutional: see HPI EENTM: see HPI Respiratory: no symptoms reported Cardiovascular: no symptoms reported Genitourinary: no symptoms reported Musculoskeletal: no symptoms reported Skin: no symptoms reported Psychiatric/Neurological: No Symptoms Reported Hematologic/Lymphatic: No Symptoms Reported Immunological/Allergic: no symptoms reported (MAHAMED COBOS APRN) Past Vssjbey-Etsbvu-Gdedlg Hx Patient Social History Tobacco Use?: Yes Tobacco type used: Cigarettes Smoking Status: Current Everyday Smoker Smokeless Tobacco Frequency: Never a User Use of E-Cig and/or Vaping dev: No Use of E-Cig and/or Vaping Jose: Never a User Substance use?: No Alcohol Use?: No Pt feels they are or have been: No (MAHAMED COBOS APRN) Immunizations Up To Date Tetanus Booster (TDap): Unknown (MAHAMED COBOS APRN) Seasonal Allergies Seasonal Allergies: No (MAHAMED COBOS APRN) Past Medical History Surgeries: Yes Abdominal, Breast, Coronary Stent, Gallbladder, Hysterectomy, Orthopedic, Rectal, Tonsillectomy, Vascular Surgery Respiratory: Yes COPD Currently Using CPAP: No Currently Using BIPAP: No Cardiac: Yes (CAROTID DISEASE; PERIPHERAL VASCULAR DISEASE--STENTS IN LEG, PER PT; CHF) Coronary Artery Disease Neurological: No Seizure Disorder, Stroke, TIA 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 Disorders: No Female 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 Disorders: Denies 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, 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 Sexually Transmitted Disease: No HIV/AIDS: No Genitourinary: No Gastrointestinal: Yes Gastroesophageal Reflux, Alonso's Esophagus, Gastrointestinal Bleed, Hiatal Hernia Musculoskeletal: Yes Arthritis Endocrine: No HEENT: Yes (GLASSES, DENTURES) Glaucoma Loss of Vision: Denies Hearing Impairment: Denies Cancer: No Breast Did You Recieve Any Treatments: Yes What Type of Treatment Did You: Chemotherapy Psychosocial: Yes Anxiety Integumentary: No Blood Disorders: Yes (ANEMIA) Adverse Reaction/Blood Tranf: No (MAHAMED COBOS APRN) Family Medical History Alcoholism 19 MOTHER, Onset:20's - 25 Aphasia 19 MOTHER, Onset:40's - 50 Asthma 19 FATHER, Onset:Unknown Congenital disease Son, Onset:Pre- Diabetes mellitus G8 SISTER, Onset:60 years & older FH: ovarian cancer G8 SISTER, Onset:Unknown FHx: stomach cancer 19 MOTHER, Onset:60 years & older Glaucoma Grandaughter, Onset:Unknown Hypertension 19 MOTHER, Onset:Unknown Infertility G8 SISTER, Onset:Pre- Tuberculosis G8 SISTER, Onset:30's - 40 No Family History of: AIDS Abdominal aortic aneurysm [place]'s disease Alzheimer's disease Cancer of mouth Cardiovascular disease Cataracts Colon cancer Completed stroke Congenital heart disease Coronary thrombosis Cystic fibrosis Deafness or hearing loss Dementia Drug abuse Dysphasia Fibrocystic disease of breast Gastroenteritis Gout Headache disorder Hypercholesterolemia Kidney disease Myocardial infarction Neoplasm Not obtainable due to adoption Osteoporosis Parkinson's disease Prostate cancer Psychosocial problem Respiratory disorder Seizure disorder Severe allergy Thyroid disease Visual disorder Cancer, Diabetes (MAHAMED COBOS APRN) Physical Exam Vital Signs Vital Signs - First Documented 04/25/21 18:05 Temp 36.4 Pulse 55 Resp 15 B/P (MAP) 136/58 (84) O2 Delivery Room Air (YOLANDA DOYLE DO) Vital Signs Capillary Refill : Less Than 3 Seconds (MAHAMED COBOS APRN) Height, Weight, BMI Height: 5'8.00" Weight: 155lbs. 0.0oz. 70.387481mh; 20.00 BMI Method:Estimated General Appearance: No Apparent Distress, WD/WN, Other (Eyes closed. Arousable to verbal stimuli. She does not appear dyspneic. She does have wheezing and rhonchi. Answers questions appropriately. She knows where she is at and what year it is. She states she feels okay just a little tired. ) Eyes: Bilateral Eye Normal Inspection, Bilateral Eye PERRL, Bilateral Eye EOMI HEENT: PERRL/EOMI Neck: Full Range of Motion, Normal Inspection Respiratory: No Accessory Muscle Use, No Respiratory Distress Cardiovascular: Regular Rate, Rhythm, Normal Peripheral Pulses Gastrointestinal: Normal Bowel Sounds, Non Tender, Soft Extremity: Normal Capillary Refill, Normal Inspection, Other (Left arm flaccid from previous CVA in 2015) Neurologic/Psychiatric: Oriented x3, Other (Comment but arousable to verbal stimuli. I did question her as to whether or not she would want to be put on a ventilator if she should needed to help her breathe or to keep her comfortable and allow her to naturally. She states "keep me comfortable. I also posed the question if her heart were to stop should we try to resuscitate her or "let her go". She replies "just let me go". As such she would be a DO NOT INTUBATE/DO NOT RESUSCITATE status.) Skin: Normal Color, Warm/Dry (MAHAMED COBOS APRN) Focused Exam Lactate Level 04/25/21 18:15: Lactic Acid Level 0.78 (YOLANDA DOYLE DO) Lactic Acid Level Laboratory Tests Test 04/25/21 18:15 Lactic Acid Level 0.78 MMOL/L (0.50-2.00) (YOLANDA DOYLE DO) Progress/Results/Core Measures Suspected Sepsis SIRS Temperature: Pulse: 55 Respiratory Rate: 15 Laboratory Tests 04/25/21 18:15: White Blood Count 6.1 Blood Pressure 136 /58 Mean: 84 04/25/21 18:15: Lactic Acid Level 0.78 Laboratory Tests 04/25/21 18:15: Creatinine 1.51H, INR Comment 1.1, Platelet Count 207, Total Bilirubin 0.3 (MAHAMED COBOS APRN) Results/Orders Lab Results Laboratory Tests Test 04/25/21 18:15 04/25/21 19:21 04/25/21 21:09 Range/Units White Blood Count 6.1 4.3-11.0 10^3/uL Red Blood Count 2.92 L 3.80-5.11 10^6/uL Hemoglobin 9.0 L 11.5-16.0 g/dL Hematocrit 30 L 35-52 % Mean Corpuscular Volume 101 H 80-99 fL Mean Corpuscular Hemoglobin 31 25-34 pg Mean Corpuscular Hemoglobin Concent 31 L 32-36 g/dL Red Cell Distribution Width 14.0 10.0-14.5 % Platelet Count 207 130-400 10^3/uL Mean Platelet Volume 9.6 9.0-12.2 fL Immature Granulocyte % (Auto) 0 % Neutrophils (%) (Auto) 47 42-75 % Lymphocytes (%) (Auto) 33 12-44 % Monocytes (%) (Auto) 14 H 0-12 % Eosinophils (%) (Auto) 6 0-10 % Basophils (%) (Auto) 1 0-10 % Neutrophils # (Auto) 2.8 1.8-7.8 10^3/uL Lymphocytes # (Auto) 2.0 1.0-4.0 10^3/uL Monocytes # (Auto) 0.8 0.0-1.0 10^3/uL Eosinophils # (Auto) 0.4 H 0.0-0.3 10^3/uL Basophils # (Auto) 0.0 0.0-0.1 10^3/uL Immature Granulocyte # (Auto) 0.0 0.0-0.1 10^3/uL Prothrombin Time 14.2 12.2-14.7 SEC INR Comment 1.1 0.8-1.4 Activated Partial Thromboplast Time 37 H 24-35 SEC Blood Gas Puncture Site LEFT RADIAL Blood Gas Patient Temperature 36.4 Arterial Blood pH 7.37 7.37-7.43 Arterial Blood Partial Pressure CO2 46 H 35-45 MMHG Arterial Blood Partial Pressure O2 56 L 79-93 MMHG Arterial Blood HCO3 27 23-27 MMOL/L Arterial Blood Total CO2 28.1 21.0-31.0 MMOL/L Arterial Blood Oxygen Saturation 89 L 94-100 % Arterial Blood Base Excess 1.9 -2.5-2.5 MMOL/L Rao Test POSITIVE Blood Gas Ventilator Setting NO Blood Gas Inspired Oxygen 2 L Sodium Level 139 135-145 MMOL/L Potassium Level 4.6 3.6-5.0 MMOL/L Chloride Level 105 98-107 MMOL/L Carbon Dioxide Level 26 21-32 MMOL/L Anion Gap 8 5-14 MMOL/L Blood Urea Nitrogen 32 H 7-18 MG/DL Creatinine 1.51 H 0.60-1.30 MG/DL Estimat Glomerular Filtration Rate 35 BUN/Creatinine Ratio 21 Glucose Level 102 70-105 MG/DL Lactic Acid Level 0.78 0.50-2.00 MMOL/L Calcium Level 8.9 8.5-10.1 MG/DL Corrected Calcium 9.4 8.5-10.1 MG/DL Total Bilirubin 0.3 0.1-1.0 MG/DL Aspartate Amino Transf (AST/SGOT) 14 5-34 U/L Alanine Aminotransferase (ALT/SGPT) 14 0-55 U/L Alkaline Phosphatase 71 40-136 U/L B-Type Natriuretic Peptide 226.8 H <100.0 PG/ML Total Protein 6.3 L 6.4-8.2 GM/DL Albumin 3.4 3.2-4.5 GM/DL Procalcitonin 0.04 <0.10 NG/ML Urine Color YELLOW Urine Clarity CLEAR Urine pH 6.0 5-9 Urine Specific [place] 1.015 L 1.016-1.022 Urine Protein NEGATIVE NEGATIVE Urine Glucose (UA) NEGATIVE NEGATIVE Urine Ketones NEGATIVE NEGATIVE Urine Nitrite NEGATIVE NEGATIVE Urine Bilirubin NEGATIVE NEGATIVE Urine Urobilinogen 0.2 < = 1.0 MG/DL Urine Leukocyte Esterase NEGATIVE NEGATIVE Urine RBC (Auto) NEGATIVE NEGATIVE Urine RBC NONE /HPF Urine WBC 0-2 /HPF Urine Squamous Epithelial Cells 2-5 /HPF Urine Renal Epithelial Cells NONE /HPF Urine Crystals NONE /LPF Urine Bacteria NEGATIVE /HPF Urine Casts PRESENT /LPF Urine Hyaline Casts 2-5 H /LPF Urine Mucus NEGATIVE /LPF Urine Culture Indicated CULTURE PENDING Urine Opiates Screen NEGATIVE NEGATIVE Urine Oxycodone Screen NEGATIVE NEGATIVE Urine Methadone Screen NEGATIVE NEGATIVE Urine Propoxyphene Screen NEGATIVE NEGATIVE Urine Barbiturates Screen NEGATIVE NEGATIVE Ur Tricyclic Antidepressants Screen NEGATIVE NEGATIVE Urine Phencyclidine Screen NEGATIVE NEGATIVE Urine Amphetamines Screen NEGATIVE NEGATIVE Urine Methamphetamines Screen NEGATIVE NEGATIVE Urine Benzodiazepines Screen NEGATIVE NEGATIVE Urine Cocaine Screen NEGATIVE NEGATIVE Urine Cannabinoids Screen NEGATIVE NEGATIVE SARS-CoV-2 RNA (RT-PCR) Negative Negative (YOLANDA DOYLE DO) Vital Signs/I&O 04/25/21 18:05 Temp 36.4 Pulse 55 Resp 15 B/P (MAP) 136/58 (84) O2 Delivery Room Air (YOLANDA DOYLE DO) Vital Signs/I&O Capillary Refill : Less Than 3 Seconds (MAHAMED COBOS APRN) Blood Pressure Mean: 84 Departure Communication (Admissions) Family Conversation 2018 remains lethargic but arousable to verbal stimuli with normal oxygen saturation lower 90% range. Mentation is appropriate when she is awake. I do not find any emergency cause for the lethargy. It does look like she was started on some trazodone at the end of March. If my interpretation of her medication list is accurate then that could be a cause for her symptoms. We will hold the trazodone. I will have her follow-up with Dr. Coronado. NAME: JUDITH ROMEO [facility] REC#: [id number] PT STATUS: REG ER : 1945 PHYSICIAN: MAHAMED COBOS APRN ADMIT DATE: 04/25/21/ER Draft Date of Exam:04/25/21 CHEST 1 VIEW, AP/PA ONLY INDICATION: Weakness. EXAMINATION: AP view of the chest was obtained. COMPARISON: Study of 09/29/2020. FINDINGS: Study is somewhat limited due to patient rotation. There is mild cardiomegaly. Right perihilar density seen on the previous study is improved. Density in the right apex is likely due to superimposition. There are questionable faint nodules in the periphery of the left upper lobe. IMPRESSION: Cardiomegaly with improvement in right perihilar density. There is however faint nodularity in the periphery of the left upper lobe. This could be reassessed on follow-up study with improved positioning. Dictated on workstation # [id number] Dict: 04/25/211908 Trans: 04/25/211916 [facility] [id number] Interpreted by: PRASHANTH BURGESS MD Electronically signed by: (MAHAMED COBOS APRN) Impression Primary Impression: Lethargy Disposition: ADMITTED INPATIENT Condition: Stable Admissions Decision to Admit Reason: Admit from ER (General) Decision to Admit/Date: Apr 25, 2021 Time/Decision to Admit Time: 18:45 (MAHAMED COBOS APRN) Departure-Patient Inst. Decision time for Depature: 20:18 (MAHAMED COBOS APRN) Referrals: KELSIE CORONADO DO (PCP) Primary Care Physician Patient Instructions: Generalized Weakness (DC) Add. Discharge Instructions: 1. Return to ER for any concerns 2. Stop your trazodone until directed otherwise by Dr Coronado. Call her tomorrow for follow up All discharge instructions reviewed with patient and/or family. Voiced understanding. ATTENDING PHYSICIAN NOTE: I WAS PHYSICALLY PRESENT ER PHYSICIAN WHEN THIS PATIENT WAS IN ER, BUT I WAS NOT INVOLVED IN ANY DECISION MAKING OR ANY CARE OF THIS PATIENT. (YOLANDA DOYLE DO) Copy Copies To 1: KELSIE CORONADO PETER J APRN Apr 25, 2021 18:45 YOLANDA DOYLE DO Apr 26, 2021 01:16
[2021-04-25 18:48] LABS: ALLENS TEST POSITIVE; BASOPHILS % (AUTO) 1 % (0-10); EOSINOPHILS # (AUTO) 0.4 10^3/uL (0.0-0.3); EOSINOPHILS % (AUTO) 6 % (0-10); HEMATOCRIT 30 % (35-52); INSPIRED O2 2 L; LYMPHOCYTES % (AUTO) 33 % (12-44); MEAN CORPUSCULAR HEMOGLOBIN 31 pg (25-34); MEAN CORPUSCULAR HGB CONC 31 g/dL (32-36); MEAN CORPUSCULAR VOLUME 101 fL (80-99); MEAN PLATELET VOLUME 9.6 fL (9.0-12.2); MONOCYTES # (AUTO) 0.8 10^3/uL (0.0-1.0); MONOCYTES % (AUTO) 14 % (0-12); NEUTROPHILS # (AUTO) 2.8 10^3/uL (1.8-7.8); NEUTROPHILS % (AUTO) 47 % (42-75); PLATELET COUNT 207 10^3/uL (130-400); VENTILATOR NO; WHITE BLOOD COUNT 6.1 10^3/uL (4.3-11.0)
[2021-04-25 18:49] LABS: PATIENT TEMP 36.4
[2021-04-25 18:57] LABS: INR 1.1 (0.8-1.4); PROTHROMBIN TIME PATIENT 14.2 SEC (12.2-14.7)
[2021-04-25 19:05] LABS: ALBUMIN 3.4 GM/DL (3.2-4.5); BILIRUBIN,TOTAL 0.3 MG/DL (0.1-1.0); CALCIUM 8.9 MG/DL (8.5-10.1); CREATININE SERUM 1.51 MG/DL (0.60-1.30); POTASSIUM 4.6 MMOL/L (3.6-5.0); TOTAL PROTEIN 6.3 GM/DL (6.4-8.2)
--- NOTE | 2021-04-25 19:19 | Diagnostic Imaging Report ---
INDICATION: Weakness. EXAMINATION: AP view of the chest was obtained. COMPARISON: Study of 09/29/2020. FINDINGS: Study is somewhat limited due to patient rotation. There is mild cardiomegaly. Right perihilar density seen on the previous study is improved. Density in the right apex is likely due to superimposition. There are questionable faint nodules in the periphery of the left upper lobe. IMPRESSION: Cardiomegaly with improvement in right perihilar density. There is however faint nodularity in the periphery of the left upper lobe. This could be reassessed on follow-up study with improved positioning. Dictated by: Dictated on workstation # [id number]
[2021-04-25 19:36] LABS: BILIRUBIN,URINE NEGATIVE (NEGATIVE); CLARITY,URINE CLEAR; COLOR,URINE YELLOW; GLUCOSE, URINE (UA) NEGATIVE (NEGATIVE); KETONES,URINE NEGATIVE (NEGATIVE); LEUKOCYTE ESTERASE ,URINE NEGATIVE (NEGATIVE); NITRITE,URINE NEGATIVE (NEGATIVE); PROTEIN,URINE NEGATIVE (NEGATIVE)
[2021-04-25 19:43] LABS: BACTERIA,URINE NEGATIVE /HPF; WBC,URINE 0-2 /HPF
[2021-04-25 20:22] LABS: AMPHETAMINE SCREEN, URINE NEGATIVE (NEGATIVE); BARBITURATE SCREEN URINE NEGATIVE (NEGATIVE); BENZODIAZEPINES SCREEN URINE NEGATIVE (NEGATIVE); CANNABINOID SCREEN, URINE NEGATIVE (NEGATIVE); COCAINE SCREEN URINE NEGATIVE (NEGATIVE); METHADONE STAT NEGATIVE (NEGATIVE); METHAMPHETAMINE SCREEN URINE S NEGATIVE (NEGATIVE); OPIATE SCREEN URINE NEGATIVE (NEGATIVE); OXYCODONE STAT NEGATIVE (NEGATIVE); PROPOXYPHENE STAT NEGATIVE (NEGATIVE); TRICYCLIC ANTIDEPRESSANTS SCRE NEGATIVE (NEGATIVE)
[2021-04-25] MEDS ORDERED: predniSONE 20 MG TAB PO ONE (21:00)
[2021-04-25 21:05] VITALS: BP 131/64
== END 2021-04-25 21:05 | disposition other institution (70) ==
LOC: EDUNIT# 18:05 → ER 18:32
DX: R53.83 Other fatigue (principal); J44.9 Chronic obstructive pulmonary disease, unspecified; K21.9 Gastro-esophageal reflux disease without esophagitis; I25.10 Atherosclerotic heart disease of native coronary artery without angina pectoris; G40.909 Epilepsy, unspecified, not intractable, without status epilepticus; F41.9 Anxiety disorder, unspecified; H40.9 Unspecified glaucoma; F17.210 Nicotine dependence, cigarettes, uncomplicated; Z20.822 Contact with and (suspected) exposure to COVID-19; Z86.73 Personal history of transient ischemic attack (TIA), and cerebral infarction without residual deficits; Z79.82 Long term (current) use of aspirin; Z79.01 Long term (current) use of anticoagulants; Z79.899 Other long term (current) drug therapy
CPT/HCPCS: 36415; 71045; 80053; 80306; 81000; 82805; 83605; 83880; 84145; 85025; 85610; 85730; 87040; 87088; 87635; 87636